=== PATIENT | female | born 1955 | race Caucasian/White ===

== ENCOUNTER 2019-11-29 20:35 | Inpatient (IN) ==
--- NOTE | 2019-11-29 20:56 | Emergency Department Note ---
Abdominal Pain HPI - General Chief Complaint: Constipation Stated Complaint: constipation Time Seen by Provider: 11/29/19 20:41 Source: family Mode of arrival: ambulatory Limitations: no limitations - History of Present Illness HPI Narrative: 64-year-old female patient presents emergency department with chief complaint of worsening constipation, abdominal pain, and bloating x3 days. Patient tells me she began to feel uncomfortable and had a small solid bowel movement 3 days ago. She has had no BM since then. She took 2 Dulcolax stool softeners viral roximately 2 hours prior to presentation. She was recently switched to a different dementia medication (galantamine) by her primary care provider and took the first dose yesterday. She denies fever, sweats, chills. She denies runny nose, cough, congestion. She denies shortness of breath. She denies retrosternal chest pain or palpitations. She admits to mild nausea but no vomiting. She denies dysuria or hematuria. She denies focal weakness. A review of her active problems shows the following: Matos's palsy, right shoulder pain, hypertension, urinary frequency, secondary hyperparathyroidism, borderline hyperglycemia, UTI, hyperlipidemia, glaucoma, diverticulitis, idiopathic aseptic necrosis of the femur, osteoporosis, nephrotic syndrome, vitamin D deficiency, anemia, hypertension, CKD stage III. - Related Data Home Medications Medication Instructions Recorded Confirmed Omeprazole [PriLOSEC] 20 mg PO DAILY 08/11/15 10/25/19 Spironolactone [Aldactone] 25 mg PO DAILY 08/11/15 10/25/19 Latanoprost Ophth Drops [Xalatan 1 gtt OS HS 09/04/15 10/25/19 Ophth Drops] calcitonin (salmon) 200 1 spray INTRANASAL QDAY 02/05/16 10/25/19 unit/actuation nasal spray cholecalciferol (vitamin D3) 125 5,000 unit PO QDAY cap 02/05/16 10/25/19 mcg (5,000 unit) capsule levothyroxine 100 mcg intravenous 100 mcg PO QDAY ml 02/05/16 10/25/19 powder for solution magnesium 400MG 1 tab PO QDAY 02/05/16 10/25/19 [id number]-csuzyec-urir-lutein 1 tab-cap PO QDAY 02/05/16 10/25/19 mycophenolate mofetil 250 mg 750 mg PO BID cap 02/05/16 10/25/19 capsule tacrolimus 1 mg capsule 3 mg PO Q12H cap 02/05/16 10/25/19 diltiazem HCl 180 mg 180 mg PO .COMPLEX 06/07/17 10/25/19 capsule,extended release 24 hr prednisone 5 mg tablet 5 mg PO QDAY 06/07/17 10/25/19 pamidronate 30 mg/10 mL (3 mg/mL) 90 mg IV .COMPLEX ml 07/13/18 10/25/19 intravenous solution Donepezil [Aricept] 10 mg PO HS 04/22/19 10/25/19 Previous Rx's Medication Instructions Recorded losartan 50 mg tablet 50 mg PO DAILY #90 tab 09/11/18 Allergies Allergy/AdvReac Type Severity Reaction Status Date / Time ciprofloxacin AdvReac Intermediate muscle Verified 10/25/19 11:44 spasm Amoxicillin AdvReac Rash Verified 10/25/19 11:44 cefoxitin AdvReac Rash Verified 10/25/19 11:44 cephalexin [From Keflex] AdvReac Rash Verified 10/25/19 11:44 Cephalosporins AdvReac Rash Verified 10/25/19 11:44 cilastatin [From Primaxin] AdvReac Rash Verified 10/25/19 11:44 droperidol [From Inapsine] AdvReac Rash Verified 10/25/19 11:44 imipenem [From Primaxin] AdvReac Rash Verified 10/25/19 11:44 Labetalol [From Trandate] AdvReac Rash Verified 10/25/19 11:44 lorazepam [From Ativan] AdvReac Rash Verified 10/25/19 11:44 meperidine [From Demerol] AdvReac Rash Verified 10/25/19 11:44 metronidazole [From Flagyl] AdvReac Rash Verified 10/25/19 11:44 oxycodone [From Percocet] AdvReac Rash Verified 10/25/19 11:44 pentazocine [From Talwin] AdvReac Rash Verified 10/25/19 11:44 phenobarbital AdvReac Rash Verified 10/25/19 11:44 propoxyphene AdvReac Rash Verified 10/25/19 11:44 [From Darvocet-N] tobramycin AdvReac Rash Verified 10/25/19 11:44 Review of Systems All systems ED: reviewed and negative except as stated. 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 Absent: scleral icterus, conjunctival injection ENT: Present: normal oropharynx, mucous membranes dry Neck: Present: trachea midline. Absent: lymphadenopathy, thyromegaly Chest: Present: symmetric chest wall rise Respiratory: Present: normal lung sounds bilaterally. Absent: respiratory distress, wheezes, stridor, accessory muscle use, prolonged expiratory phase Cardiovascular: Present: regular rate, normal rhythm. Absent: systolic murmur, diastolic murmur Abdominal: Present: soft, tenderness, guarding, hyperactive bowel sounds. Absent: distention, rebound, rigidity, organomegaly, mass Abdominal tenderness: Present: LUQ, LLQ, moderate Extremities: Present: normal inspection, full ROM, normal capillary refill, pedal edema Neurological: Present: alert, oriented X3 Psychiatric: Present: normal mood, anxious Skin: Present: warm, dry Course Course Narrative: Patient was brought into the emergency department and a history and physical examination was performed. Two-view abdominal x-ray series was ordered and reviewed showing considerable gas throughout the bowel but no air-fluid levels. No obvious evidence of obstruction was seen. The x-rays will be over read by radiologist next 12-24 hours. Upon reevaluation patient continues to complain of "stomach aching". She denies recurrent nausea or vomiting. The stool softener she took several hours ago was not taken effect and she denies the urge to have a bowel movement. At shift change I discussed the case with my collaborating physician (Dr. Romero). The patient is likely going to need additional imaging and work-up that he will 10 2. All further treatment decisions and modalities to be carried out by Dr. Romero. Vital Signs Temperature 98.3 F 11/29/19 20:37 Pulse Rate 83 11/29/19 20:37 Respiratory Rate 18 11/29/19 20:37 Blood Pressure 191/104 11/29/19 20:37 Pulse Oximetry (%) 98 11/29/19 20:37 Temperature 98.3 F 11/29/19 20:37 Pulse Rate 72 11/29/19 21:01 Respiratory Rate 18 11/29/19 20:37 Blood Pressure 170/92 11/29/19 21:46 Pulse Oximetry (%) 92 11/29/19 21:01 Abdominal Pain - Radiology Data Radiology results reviewed: Yes I reviewed the patient's radiology results. Considerable bowel gas noted throughout. No air-fluid levels identified. This would be considered a nonspecific bowel gas pattern. This will be over read by radiologist next 12-24 hours. Disposition Pt seen by PRIVATE MORTGAGE BANKER SAFE/PA only: Yes Clinical Impression: Constipation Qualifiers: Constipation type: unspecified constipation type Qualified Code(s): K59.00 - Constipation, unspecified Abdominal pain Qualifiers: Abdominal location: generalized Qualified Code(s): R10.84 - Generalized abdominal pain Disposition: Still a Patient Condition: Fair Additional Instructions: At shift change patient report was given to my collaborating physician (Dr. Romero). All further treatment decisions and modalities will be carried out by Dr. Romero. Referrals: Turner Devine MD [Primary Care Provider] -
[2019-11-29] MEDS ORDERED: 0.9 % SODIUM CHLORIDE 1,000 ML IV ONE (22:09)
[2019-11-29 22:45] LABS: POC Blood Urea Nitrogen 36 mg/dl (8-23); POC CO2 23 mmol/L (22-30); POC Calcium, Ionized 1.27 mmol/L (1.16-1.32); POC Chloride 107 mmol/L (96-108); POC Creatinine 2.1 mg/dl (0.6-1.1); POC Glucose, Random 115 mg/dL (70-105); POC Potassium 4.7 mmol/L (3.3-5.1); POC Sodium 138 mmol/L (133-145)
[2019-11-29 23:12] LABS: Basophils # (Auto) 0.02 K/mcL (0.00-0.30); Basophils % (Auto) 0.2 % (0.0-2.0); Eosinophils # (Auto) 0.07 K/mcL (0.00-0.70); Eosinophils % (Auto) 0.5 % (0.0-7.0); Granulocytes % (Auto) 81.1 % (38.0-78.0); Hematocrit 32.5 % (34.1-44.9); Hemoglobin 10.7 g/dL (11.2-15.7); Lymphocytes # (Auto) 1.44 K/mcL (1.50-4.80); Lymphocytes % (Auto) 11.2 % (15.5-49.0); Mean Cell Volume 90.3 fL (80.0-100.0); Mean Corpuscular HGB Conc 32.9 g/dL (31.0-36.0); Mean Platelet Volume 10.3 fL (7.4-10.4); Platelet Count 277 K/mcL (140-440); Red Cell Distribution Width 14.2 % (11.5-14.5); WBC 12.9 K/mcL (4.50-11.00)
[2019-11-29] MEDS ORDERED: hydrALAZINE 20 MG/ML VIAL IV ONE (23:16)
[2019-11-29 23:34] LABS: ALT/SGPT 10 U/l (0-40); AST/SGOT 14 U/l (0-37); Albumin 3.5 gm/dL (3.2-5.2); Albumin/Globulin Ratio 1.5 (1.0-2.3); Alkaline Phosphatase 61 U/L (39-117); Bilirubin,Total 0.3 mg/dL (0.0-1.0); Blood Urea Nitrogen 41 mg/dl (8-23); Calcium 9.9 mg/dl (8.6-10.4); Carbon Dioxide 21 mmol/L (22-30); Chloride 102 mmol/L (96-108); Globulin 2.4 gm/dL (2.2-3.7); Glomerular Filtration Rate 24; Glucose 119 mg/dL (70-105)
[2019-11-30] MEDS ORDERED: ONDANSETRON 4 MG/2 ML VIAL IV ONE ×2 (00:27→01:42)
[2019-11-30] MEDS ORDERED: LEVOFLOXACIN 500 MG/100 ML BAG IV ONE (00:27)
[2019-11-30] MEDS ORDERED: HYDROmorphone 2 MG/ML VIAL IV PRN (00:27)
[2019-11-30] MEDS ORDERED: metroNIDAZOLE 500 MG/100 ML BAG IV ONE (00:27)
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
[2019-11-30] MEDS ORDERED: PROMETHAZINE 25 MG/ML VIAL IM PRN (01:51)
[2019-11-30] MEDS ORDERED: NALOXONE HCL 0.4 MG/ML VIAL IV PRN (01:51)
[2019-11-30] MEDS ORDERED: PROMETHAZINE 25 MG/ML VIAL IV ONE (02:05)
[2019-11-30] MEDS: 0.9 % SODIUM CHLORIDE 1,000 ML IV SCH ×3 (03:56→14:41)
--- NOTE | 2019-11-30 08:44 | Cat Scan Report ---
History: Abdominal pain and constipation TECHNIQUE: The patient was imaged without oral or intravenous contrast scanning from the diaphragm through the symphysis pubis. Sagittal and coronal reformats are created. The radiation exposure was limited using dose reduction technology. FINDINGS: Heart is mildly enlarged. There is a pacemaker in the right side of the heart. Evaluation the abdominal organs without contrast is somewhat limited. The liver and spleen are normal in size and homogeneous. The gallbladder surgically absent. The bile ducts are nondilated. There is severe diffuse fatty infiltration throughout the pancreas and no evidence of pancreatitis. Patient has developed a nodule in the left adrenal gland which measures 1.4 x 1.4 cm. It has a density of -16 Hounsfield units indicating it contains a lipid. The nodule has enlarged since 2013. Then measured 7 x 9 mm. The right adrenal is normal. Patient has severe atrophy of both kidneys. There is an exophytic cyst posteriorly in the midportion left kidney measuring 1.5 x 1.6 cm. It has enlarged a few millimeter since 2012. No solid mass is seen within either kidney and there is no hydronephrosis of the bois forte kidneys. Patient does have a well-positioned normal contour transplanted kidney in the right upper pelvis. There is no hydronephrosis within the transplant or surrounding inflammation. Patient has developed acute diverticulitis of the distal descending colon extending to the proximal sigmoid colon. There is inflammation of the surrounding fat but no evidence of perforation or abscess. On the prior CT scan there was acute diverticulitis of the mid and distal sigmoid colon. No bowel obstruction is present. The appendix is noninflamed. There is no ascites or adenopathy. The uterus is been removed and neither ovary is visualized. Urinary bladder is unopacified but grossly normal. Severe atherosclerotic disease is present throughout the abdomen and pelvis and groin. There is a moderate-sized fat-containing inguinal hernia on the left side. There is no entrapment of bowel. IMPRESSION: Acute diverticulitis of the distal descending and proximal sigmoid colon Interpreted and Authenticated by: José Garcia 11/30/19
--- NOTE | 2019-11-30 08:45 | XRay Report ---
HISTORY: Abdominal pain FINDINGS: The bowel gas pattern is normal without evidence of obstruction or free intraabdominal air. Multiple surgical clips in the gallbladder fossa and in the right side of the pelvis following a prior kidney transplant. Severe atherosclerotic disease is present throughout the abdomen or pelvis. The heart is enlarged. IMPRESSION: No acute abnormality Interpreted and Authenticated by: José Garcia 11/30/19
[2019-11-30] MEDS ORDERED: VITAMIN D3 1,000 UNIT TABLET PO SCH (09:00)
[2019-11-30] MEDS ORDERED: DILTIAZEM 120 MG CAP.XL.24H PO SCH (09:00)
[2019-11-30] MEDS: ONDANSETRON 4 MG/2 ML VIAL IV PRN (09:57)
[2019-11-30] MEDS: TACROLIMUS 1 MG CAPSULE PO SCH ×3 (09:57→21:00)
[2019-11-30] MEDS: metroNIDAZOLE 500 MG/100 ML BAG IV SCH ×3 (09:57→21:08)
[2019-11-30] MEDS: LOSARTAN 50 MG TABLET PO SCH ×3 (09:59→21:18)
[2019-11-30] MEDS: predniSONE 5 MG TABLET PO SCH (09:59)
[2019-11-30] MEDS: LEVOTHYROXINE 100 MCG TABLET PO SCH (09:59)
[2019-11-30] MEDS: OMEPRAZOLE 20 MG CAPSULE PO SCH (09:59)
[2019-11-30] MEDS: SPIRONOLACTONE 25 MG TABLET PO SCH (09:59)
[2019-11-30] MEDS: MYCOPHENOLATE 250 MG CAPSULE PO SCH ×3 (09:59→20:58)
[2019-11-30] MEDS: CALCITONIN NASAL SPRAY 3.7ML BOTTLE NS SCH (10:00)
[2019-11-30] MEDS ORDERED: metroNIDAZOLE 500 MG/100 ML BAG IV SCH (10:00)
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
[2019-11-30] MEDS: LEVOFLOXACIN 250 MG/50 ML BAG IV SCH (17:06)
[2019-11-30] MEDS: VITAMIN D3 5,000 UNIT CAPSULE PO SCH (21:01)
[2019-11-30] MEDS: DONEPEZIL 10 MG TABLET PO SCH (21:03)
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
[2019-11-30] MEDS ORDERED: TACROLIMUS 1 MG CAPSULE PO SCH (23:45)
[2019-12-01] MEDS ORDERED: LEVOFLOXACIN 250 MG/50 ML BAG IV SCH (02:00)
[2019-12-01] MEDS: 0.9 % SODIUM CHLORIDE 1,000 ML IV SCH ×3 (03:42→18:04)
[2019-12-01] MEDS: metroNIDAZOLE 500 MG/100 ML BAG IV SCH ×3 (05:53→22:05)
[2019-12-01] MEDS ORDERED: OMEPRAZOLE 20 MG CAPSULE PO SCH (09:00)
[2019-12-01] MEDS ORDERED: SPIRONOLACTONE 25 MG TABLET PO SCH (09:00)
[2019-12-01] MEDS ORDERED: DILTIAZEM 120 MG CAP.XL.24H PO SCH (09:00)
[2019-12-01] MEDS ORDERED: MYCOPHENOLATE 250 MG CAPSULE PO SCH (09:00)
[2019-12-01] MEDS ORDERED: VITAMIN D3 5,000 UNIT CAPSULE PO SCH (09:00)
[2019-12-01] MEDS ORDERED: LOSARTAN 50 MG TABLET PO SCH (09:00)
[2019-12-01] MEDS: TACROLIMUS 1 MG CAPSULE PO SCH ×2 (09:30→20:08)
[2019-12-01] MEDS: CALCITONIN NASAL SPRAY 3.7ML BOTTLE NS SCH (09:30)
[2019-12-01] MEDS: MYCOPHENOLATE 250 MG CAPSULE PO SCH ×2 (09:30→20:06)
[2019-12-01] MEDS: predniSONE 5 MG TABLET PO SCH ×2 (09:34→10:22)
[2019-12-01 09:38] LABS: Basophils # (Auto) 0.03 K/mcL (0.00-0.30); Basophils % (Auto) 0.2 % (0.0-2.0); Eosinophils # (Auto) 0.13 K/mcL (0.00-0.70); Granulocytes % (Auto) 77.1 % (38.0-78.0); Hematocrit 32.9 % (34.1-44.9); Hemoglobin 10.5 g/dL (11.2-15.7); Lymphocytes # (Auto) 1.77 K/mcL (1.50-4.80); Lymphocytes % (Auto) 13.3 % (15.5-49.0); Mean Cell Volume 91.9 fL (80.0-100.0); Mean Corpuscular HGB Conc 31.9 g/dL (31.0-36.0); Mean Platelet Volume 10.1 fL (7.4-10.4); Monocytes # (Auto) 1.12 K/mcL (0.10-0.90); Monocytes % (Auto) 8.4 % (1.0-12.0); Platelet Count 258 K/mcL (140-440); RBC 3.58 M/mcL (3.59-5.38); Red Cell Distribution Width 14.6 % (11.5-14.5); WBC 13.3 K/mcL (4.50-11.00)
[2019-12-01 10:18] LABS: ALT/SGPT 10 U/l (0-40); AST/SGOT 14 U/l (0-37); Albumin/Globulin Ratio 1.4 (1.0-2.3); Alkaline Phosphatase 50 U/L (39-117); Bilirubin,Total 0.4 mg/dL (0.0-1.0); Calcium 8.8 mg/dl (8.6-10.4); Carbon Dioxide 19 mmol/L (22-30); Chloride 105 mmol/L (96-108); Globulin 2.1 gm/dL (2.2-3.7); Glomerular Filtration Rate 23; Glucose 89 mg/dL (70-105)
[2019-12-01] MEDS: LOSARTAN 50 MG TABLET PO SCH (10:21)
[2019-12-01] MEDS: SPIRONOLACTONE 25 MG TABLET PO SCH (10:21)
[2019-12-01] MEDS: LEVOTHYROXINE 100 MCG TABLET PO SCH (10:21)
[2019-12-01] MEDS: DONEPEZIL 10 MG TABLET PO SCH ×2 (10:21→20:08)
[2019-12-01] MEDS: OMEPRAZOLE 20 MG CAPSULE PO SCH (10:21)
[2019-12-01] MEDS: LEVOFLOXACIN 250 MG/50 ML BAG IV SCH (10:23)
[2019-12-01 10:34] LABS: Blood Urea Nitrogen 28 mg/dl (8-23)
[2019-12-01] MEDS: CEFTRIAXONE IV ONE ×2 (12:54→13:54)
[2019-12-01] MEDS: WATER IV ONE ×2 (12:54→13:54)
[2019-12-01] MEDS: DEXTROSE 5% IV ONE ×2 (12:54→13:54)
--- NOTE | 2019-12-01 12:54 | General Surgery Progress Note ---
Subjective Patient reports: still having pain, tolerating liquids well, flatus, nausea, afebrile Narrative: Note initiated : 12/01/19 at 12:51 pm Service Date, if different from initiated Date: [] Patient: Wendy Ellsworth 64 y/o F admitted on 11/30/19 for constipation. Chief Complaint: [patient is stable, but she still has significant left-sided abdominal pain. She has been afebrile. Her white blood count increased slightly to 13.3. She did have nausea but that is improved. She also complains of headache.] Objective Temp Pulse Resp BP Pulse Ox 98.0 F 91 H 18 158/97 94 12/01/19 12:00 12/01/19 12:00 12/01/19 12:00 12/01/19 12:00 12/01/19 12:00 - Additional Data Intake & Output - Last 24 hours: Intake & Output 11/29/19 11/30/19 12/01/19 12/02/19 05:59 05:59 05:59 05:59 Intake Total 1200 3010 100 Output Total 400 Balance 1200 2610 100 Weight 169 lb 171 lb 8 oz - General physical appearance well developed, well nourished, no distress - Eyes PERRL, normal ocular movement - ENT normal pinna, normal nares, normal mucosa, no hearing loss, no congestion - Neck no masses, no bruits, trachea midline, no lymphadenopathy, no venous distension - Respiratory normal expansion, normal respiratory effort, clear to auscultation - Abdomen tender (diffuse tenderness in the hypogastrium and left lower quadrant extending up to the subcostal region on the left; good active bowel sounds; moderate distention) - Integumentary no rash, no growths, no abnormal pigmentation - Neurologic normal coordination, normal sensation - Musculoskeletal normal gait, normal posture - Labs 12/01/19 09:08 12/01/19 09:08 Diabetes panel 12/01/19 Range/Units 09:08 Sodium 138 (133-145) mmol/L Potassium 4.6 (3.3-5.1) mmol/L Chloride 105 (96-108) mmol/L Carbon Dioxide 19 L (22-30) mmol/L BUN 28 H (8-23) mg/dl Creatinine 2.2 H (0.6-1.1) mg/dl Glucose 89 (70-105) mg/dL Calcium 8.8 (8.6-10.4) mg/dl AST 14 (0-37) U/l ALT 10 (0-40) U/l Alkaline Phosphatase 50 (39-117) U/L Total Protein 5.1 L (5.9-8.4) gm/dL Albumin 3.0 L (3.2-5.2) gm/dL Calcium panel 12/01/19 Range/Units 09:08 Calcium 8.8 (8.6-10.4) mg/dl Albumin 3.0 L (3.2-5.2) gm/dL Pituitary panel 12/01/19 Range/Units 09:08 Sodium 138 (133-145) mmol/L Potassium 4.6 (3.3-5.1) mmol/L Chloride 105 (96-108) mmol/L Carbon Dioxide 19 L (22-30) mmol/L BUN 28 H (8-23) mg/dl Creatinine 2.2 H (0.6-1.1) mg/dl Glucose 89 (70-105) mg/dL Calcium 8.8 (8.6-10.4) mg/dl Adrenal panel 12/01/19 Range/Units 09:08 Sodium 138 (133-145) mmol/L Potassium 4.6 (3.3-5.1) mmol/L Chloride 105 (96-108) mmol/L Carbon Dioxide 19 L (22-30) mmol/L BUN 28 H (8-23) mg/dl Creatinine 2.2 H (0.6-1.1) mg/dl Glucose 89 (70-105) mg/dL Calcium 8.8 (8.6-10.4) mg/dl Total Bilirubin 0.4 (0.0-1.0) mg/dL AST 14 (0-37) U/l ALT 10 (0-40) U/l Alkaline Phosphatase 50 (39-117) U/L Total Protein 5.1 L (5.9-8.4) gm/dL Albumin 3.0 L (3.2-5.2) gm/dL Assessment and Plan (1) Acute diverticulitis of intestine Status: Acute Assessment and plan: Continue Levaquin and metronidazole as antibiotics of choice. Discontinue Rocephin at this time. Fioricet 2 tabs every 4 hours as needed for headache Current Visit: Yes (2) Hypertension Status: Acute Current Visit: No (3) Anemia Status: Chronic Current Visit: No (4) Essential hypertension Status: Chronic Current Visit: No - Time Spent With Patient Total time spent is greater than 50% in coordination of care (as documented) at patient's floor/unit and/or counseling patient:
--- NOTE | 2019-12-01 13:52 | Internal Med Progress Note ---
Medical - PN: Subj Patient information: Note initiated : 12/01/19 at 1:50 pm Service Date, if different from initiated Date: [] Patient: Wendy Ellsworth 64 y/o F admitted on 11/30/19 for constipation. Chief Complaint: [] Interval history: Patient still feeling poorly today. She does not done much walking. Due to renal failure she is on renally dosed fluoroquinolone. She has reported allergy to both ciprofloxacin as well as cephalosporins. She tells me that her worst allergy was itching. She does not recall call specific allergy to any antibiotics. She is accompanied by her mother who states that the patient has had pretty significant allergies in the past - Constitutional Vitals: Vital Signs Temp Pulse Resp BP Pulse Ox 98.0 F 91 H 18 158/97 94 12/01/19 12:00 12/01/19 12:00 12/01/19 12:00 12/01/19 12:00 12/01/19 12:00 Period Temp Pulse Resp BP Sys/Reynoso Pulse Ox Last 24 Hr 98.0 F-99.3 F 72-91 16-20 134-174/59-97 89-95 Intake and Output 11/30/19 12/01/19 12/01/19 21:59 05:59 13:59 Intake Total 390 1520 1150 Balance 390 1520 1150 Weight 171 lb 8 oz Intake & Output: Intake & Output 11/30/19 12/01/19 12/01/19 21:59 05:59 13:59 Intake Total 390 1520 1150 Balance 390 1520 1150 Weight 171 lb 8 oz Intake: IV 150 1100 1150 Sodium Chloride 0.9% 1,000 ml @ 1000 1000 100 mls/hr IV .Q10H [facility] Rx#: [id number] Oral 240 420 Other: Meal Dinner Percent of Meal Consumed 100% Feeding Ability Independent Urine Appearance Clear Urine Color Bright Yellow Urine Odor Normal Stool Size Small Small Stool Color Brown Stool Consistency Soft Soft # Voids 1 1 # Bowel Movements 1 - Additional findings Additional findings: General malaised well-developed mildly overweight female in no acute cardiopul monary stress she is alert oriented pleasant CV regular rate and rhythm Lungs clear to auscultation bilaterally Abdomen positive bowel sounds soft there is some tenderness in the left side. Skin warm and dry Medical - PN: Obj Da - Labs CBC & Chem 7: 12/01/19 09:08 12/01/19 09:08 Labs: Abnormal Lab Results 12/01/19 12/01/19 11/29/19 09:08 09:08 22:36 WBC 13.3 H RBC 3.58 L Hgb 10.5 L Hct 32.9 L POC Hct 31.0 L RDW 14.6 H Gran % Lymph % (Auto) 13.3 L Gran # 10.25 H Lymph # (Auto) [place] # (Auto) 1.12 H Carbon Dioxide 19 L 21 L POC BUN 36 H BUN 28 H 41 H Creatinine 2.2 H 2.1 H POC Creatinine 2.1 H Glucose 119 H POC Glucose 115 H Total Protein 5.1 L Albumin 3.0 L Globulin 2.1 L 11/29/19 22:36 WBC 12.9 H RBC Hgb 10.7 L Hct 32.5 L POC Hct RDW Gran % 81.1 H Lymph % (Auto) 11.2 L Gran # 10.46 H Lymph # (Auto) 1.44 L [place] # (Auto) Carbon Dioxide POC BUN BUN Creatinine POC Creatinine Glucose POC Glucose Total Protein Albumin Globulin Meds: Medications Acetaminophen (Tylenol) 650 mg PO Q6HP PRN; Protocol PRN Reason: Pain Calcitonin [place] (Miacalcin) 1 spray NS DAILY [facility] Last Admin: 12/01/19 09:30 Dose: Not Given Documented by: Diltiazem HCl (Cardizem Cd) 240 mg PO HS BK Donepezil HCl (Aricept) 10 mg PO HS [facility] Last Admin: 12/01/19 10:21 Dose: 10 mg Documented by: Hydromorphone HCl (Dilaudid) 0.5 mg IV Q15MIN PRN; Protocol PRN Reason: Per Pain Protocol Last Admin: 11/30/19 00:46 Dose: 0.5 mg Documented by: Sodium Chloride (Sodium Chloride 0.9%) 1,000 mls @ 100 mls/hr IV .Q10H [facility] Last Infusion: 12/01/19 12:54 Dose: Infused Documented by: Metronidazole (Flagyl) 500 mg in 100 mls @ 100 mls/hr IV Q8H [facility]; Protocol Last Infusion: 12/01/19 06:53 Dose: Infused Documented by: Levofloxacin (Levaquin) 250 mg in 50 mls @ 50 mls/hr IV Q24H [facility] Last Infusion: 12/01/19 11:23 Dose: Infused Documented by: Latanoprost (Xalatan Ophth Drops) 1 gtt OS [facility] Lev[facility]roxine [facility] ([facility]throid) [facility] Admin: 12/01/19 10:21 Dose: 100 mcg Documented by: Losartan Potassium (Cozaar) 50 mg PO DAILY [facility] Last Admin: 12/01/19 10:21 Dose: 50 mg Documented by: Morphine Sulfate (Morphine) 2 mg IV Q1HP PRN; Protocol PRN Reason: Per Pain Protocol Last Admin: 12/01/19 04:04 Dose: 2 mg Documented by: Mycophenolate Mofetil (Cellcept) 750 mg PO BID@0700,1999 [facility] Last Admin: 12/01/19 09:30 Dose: Not Given Documented by: Naloxone HCl (Narcan) 0.1 mg IV Q2MIN PRN PRN Reason: Opiate Reversal Omeprazole (Prilosec) 40 mg PO ACB [facility] Last Admin: 12/01/19 10:21 Dose: 40 mg Documented by: Ondansetron HCl (Zofran) 4 mg IV Q4HP PRN PRN Reason: Nausea And Vomiting Last Admin: 11/30/19 09:57 Dose: 4 mg Documented by: Galantamine Hbr 4 Mg (Tab) 1 dose PO DAILY [facility] Last Admin: 12/01/19 10:23 Dose: Not Given Documented by: Prednisone (Prednisone) 5 mg PO [facility] Last Admin: 12/01/19 09:34 Dose: Not Given Documented by: Prednisone (Prednisone) 5 mg PO [facility] Last Admin: 12/01/19 10:22 Dose: 5 mg Documented by: Promethazine HCl (Phenergan) 12.5 mg IM Q6HP PRN PRN Reason: Nausea And Vomiting Spironolactone (Aldactone) 50 mg PO DAILY [facility] Last Admin: 12/01/19 10:21 Dose: 50 mg Documented by: Tacrolimus (Tacrolimus) 3 mg PO BID [facility] Last Admin: 12/01/19 09:30 Dose: Not Given Documented by: Vitamin D (Vitamin D3) 5,000 unit PO [facility] Last Admin: 11/30/19 21:01 Dose: Not Given Documented by: Medical - PN: A/P - Time Spent With Patient Total time spent is greater than 50% in coordination of care (as documented) at patient's floor/unit and/or counseling patient: 25 - 35 minutes (1) Kidney transplant recipient Problem details: stable but is on immunosuppression and steroid Status: Acute Current Visit: Yes (2) Diverticulitis Problem details: I had considered switching to Rocephin due to persistent elevated white count and occasional E. coli resistance to fluoroquinolones. I am not familiar with the local antibiogram at this hospital however. The patient had a test dose Rocephin and if she is not allergic to it that could be an option for future treatment for this infection or others. 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
[2019-12-01] MEDS: DILTIAZEM 240 MG CAP.XL.24H PO SCH (20:07)
[2019-12-01] MEDS: VITAMIN D3 5,000 UNIT CAPSULE PO SCH (20:07)
[2019-12-01] MEDS: LATANOPROST OPHTH DROPS 2.5ML BOTTLE OS SCH (20:10)
[2019-12-01] MEDS ORDERED: DONEPEZIL 10 MG TABLET PO SCH (21:00)
[2019-12-02] MEDS: 0.9 % SODIUM CHLORIDE 1,000 ML IV SCH ×4 (05:21→22:58)
[2019-12-02] MEDS: metroNIDAZOLE 500 MG/100 ML BAG IV SCH ×3 (05:49→21:53)
[2019-12-02] MEDS: OMEPRAZOLE 20 MG CAPSULE PO SCH (07:26)
[2019-12-02] MEDS: LEVOTHYROXINE 100 MCG TABLET PO SCH (07:26)
[2019-12-02] MEDS: MYCOPHENOLATE 250 MG CAPSULE PO SCH ×2 (07:26→20:23)
[2019-12-02] MEDS: LEVOFLOXACIN 250 MG/50 ML BAG IV SCH (08:48)
[2019-12-02] MEDS: predniSONE 5 MG TABLET PO SCH (08:48)
[2019-12-02] MEDS: CALCITONIN NASAL SPRAY 3.7ML BOTTLE NS SCH (08:49)
[2019-12-02] MEDS: LOSARTAN 50 MG TABLET PO SCH (08:49)
[2019-12-02] MEDS: SPIRONOLACTONE 25 MG TABLET PO SCH (08:49)
[2019-12-02] MEDS: TACROLIMUS 1 MG CAPSULE PO SCH ×2 (08:50→20:23)
[2019-12-02] MEDS: ACETAMINOPHEN 325 MG TABLET PO PRN ×2 (11:02→22:53)
[2019-12-02] MEDS ORDERED: EPINEPHrine 1 MG/ML AMPUL IM PRN (12:07)
[2019-12-02] MEDS ORDERED: AMOXICILLIN 250 MG CAPSULE PO ONE (12:07)
[2019-12-02] MEDS ORDERED: 0.9 % SODIUM CHLORIDE 500 ML IV PRN (12:07)
--- NOTE | 2019-12-02 12:41 | Internal Med Progress Note ---
Medical - PN: Subj Patient information: Note initiated : 12/02/19 at 12:35 pm Service Date, if different from initiated Date: [] Patient: Wendy Ellsworth 64 y/o F admitted on 11/30/19 for constipation. Chief Complaint: [] Interval history: pt states feels a little better today but still having abd pain. Passed some gas. Mild painful. no stool. no fevers - Constitutional Vitals: Vital Signs Temp Pulse Resp BP Pulse Ox 98.5 F 85 18 156/87 94 12/02/19 11:33 12/02/19 11:33 12/02/19 11:33 12/02/19 11:33 12/02/19 11:33 Period Temp Pulse Resp BP Sys/Reynoso Pulse Ox Last 24 Hr 97.3 F-98.9 F 75-85 16-20 125-163/73-90 90-96 Intake and Output 12/01/19 12/02/19 12/02/19 21:59 05:59 13:59 Intake Total 1370 1700 Output Total 1999 1050 Balance -630 650 Weight 169 lb 8 oz Intake & Output: Intake & Output 12/01/19 12/02/19 12/02/19 21:59 05:59 13:59 Intake Total 1370 1700 Output Total 1999 1050 Balance -630 650 Weight 169 lb 8 oz Intake: IV 150 1100 Sodium Chloride 0.9% 1,000 ml @ 1000 100 mls/hr IV .Q10H BK Rx#: [id number] Rocephin 100 mg In Dextrose 5% 50 in Water 50 ml @ 200 mls/hr IV ONCE ONE Rx#:[id number] Oral 1220 600 Output: Void Amount 1999 1050 Other: Meal Nourishment/Supplement Percent of Meal Consumed 50% Urine Appearance Clear Clear Urine Color Bright Yellow Bright Yellow Urine Odor Normal Normal # Voids 1 - Additional findings Additional findings: General well-developed well-nourished mildly overweight female no acute cardiopulmonary stress CV regular rate and rhythm Lungs clear to auscultation bilaterally Abdomen positive bowel sounds soft with left abdomen tenderness trace rebound tenderness calves no tenderness pretibial edema Mentation alert and oriented x3 but patient is a poor historian reports memory loss from recent Medical - PN: Obj Da - Labs CBC & Chem 7: 12/01/19 09:08 12/01/19 09:08 Labs: Abnormal Lab Results 12/01/19 12/01/19 11/29/19 09:08 09:08 22:36 WBC 13.3 H RBC 3.58 L Hgb 10.5 L Hct 32.9 L POC Hct 31.0 L RDW 14.6 H Gran % Lymph % (Auto) 13.3 L Gran # 10.25 H Lymph # (Auto) [place] # (Auto) 1.12 H Carbon Dioxide 19 L 21 L POC BUN 36 H BUN 28 H 41 H Creatinine 2.2 H 2.1 H POC Creatinine 2.1 H Glucose 119 H POC Glucose 115 H Total Protein 5.1 L Albumin 3.0 L Globulin 2.1 L 11/29/19 22:36 WBC 12.9 H RBC Hgb 10.7 L Hct 32.5 L POC Hct RDW Gran % 81.1 H Lymph % (Auto) 11.2 L Gran # 10.46 H Lymph # (Auto) 1.44 L [place] # (Auto) Carbon Dioxide POC BUN BUN Creatinine POC Creatinine Glucose POC Glucose Total Protein Albumin Globulin Meds: Medications Acetaminophen (Tylenol) 650 mg PO Q6HP PRN; Protocol PRN Reason: Pain Last Admin: 12/02/19 11:02 Dose: 650 mg Documented by: Calcitonin [place] (Miacalcin) 1 spray NS DAILY [facility] Last Admin: 12/02/19 08:49 Dose: Not Given Documented by: Diltiazem HCl (Cardizem Cd) 240 mg PO [facility] Last Admin: 12/01/19 20:07 Dose: 240 mg Documented by: Donepezil HCl (Aricept) 10 mg PO [facility] Last Admin: 12/01/19 20:08 Dose: 10 mg Documented by: Epinephrine HCl (Adrenalin) 0.3 mg IM ONCE PRN PRN Reason: Anaphylaxis Stop: 12/02/19 16:07 Hydromorphone HCl (Dilaudid) 0.5 mg IV Q15MIN PRN; Protocol PRN Reason: Per Pain Protocol Last Admin: 11/30/19 00:46 Dose: 0.5 mg Documented by: Sodium Chloride (Sodium Chloride 0.9%) 1,000 mls @ 100 mls/hr IV .Q10H [facility] Last Admin: 12/02/19 05:21 Dose: 100 mls/hr Documented by: Levofloxacin (Levaquin) 250 mg in 50 mls @ 50 mls/hr IV Q24H [facility] Last Admin: 12/02/19 08:48 Dose: 50 mls/hr Documented by: Metronidazole (Flagyl) 500 mg in 100 mls @ 100 mls/hr IV Q8H [facility]; Protocol Sodium Chloride (Sodium Chloride 0.9%) 500 mls @ 0 mls/hr IV BOLUS PRN PRN Reason: Anaphylaxis Stop: 12/02/19 16:06 Latanoprost (Xalatan Ophth Drops) 1 gtt OS HS [facility] Last Admin: 12/01/19 20:10 Dose: Not Given Documented by: Levothyroxine S[facility] ([facility]throid) [facility] Last Admin: 12/02/19 07:26 Dose: 100 mcg Documented by: Losartan Potassium (Cozaar) 50 mg PO DAILY [facility] Last Admin: 12/02/19 08:49 Dose: 50 mg Documented by: Morphine Sulfate (Morphine) 2 mg IV Q1HP PRN; Protocol PRN Reason: Per Pain Protocol Last Admin: 12/02/19 05:20 Dose: 2 mg Documented by: Mycophenolate Mofetil (Cellcept) 750 mg PO BID@0700,1999 [facility] Last Admin: 12/02/19 07:26 Dose: 750 mg Documented by: Naloxone HCl (Narcan) 0.1 mg IV Q2MIN PRN PRN Reason: Opiate Reversal Omeprazole (Prilosec) 40 mg PO ACB [facility] Last Admin: 12/02/19 07:26 Dose: 40 mg Documented by: Ondansetron HCl (Zofran) 4 mg IV Q4HP PRN PRN Reason: Nausea And Vomiting Last Admin: 11/30/19 09:57 Dose: 4 mg Documented by: Galantamine Hbr 4 Mg (Tab) 1 dose PO DAILY [facility] Last Admin: 12/02/19 08:49 Dose: Not Given Documented by: Prednisone (Prednisone) 5 mg PO [facility] Last Admin: 12/02/19 08:48 Dose: 5 mg Documented by: Promethazine HCl (Phenergan) 12.5 mg IM Q6HP PRN PRN Reason: Nausea And Vomiting Spironolactone (Aldactone) 50 mg PO DAILY [facility] Last Admin: 12/02/19 08:49 Dose: 50 mg Documented by: Tacrolimus (Tacrolimus) 3 mg PO BID [facility] Last Admin: 12/02/19 08:50 Dose: 3 mg Documented by: Vitamin D (Vitamin D3) 5,000 unit PO HS [facility] Last Admin: 12/01/19 20:07 Dose: 5,000 unit Documented by: Medical - PN: A/P - Time Spent With Patient Total time spent is greater than 50% in coordination of care (as documented) at patient's floor/unit and/or counseling patient: 25 - 35 minutes (1) Kidney transplant recipient Problem details: stable but is on immunosuppression and steroid Status: Acute Assessment and plan: We will check UA Current Visit: Yes (2) Diverticulitis Problem details: I had considered switching to Rocephin due to persistent elevated white count and occasional E. coli resistance to fluoroquinolones. I am not familiar with the local antibiogram at this hospital however. The patient had a test dose Rocephin and if she is not allergic to it that could be an option for future treatment for this infection or others. 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 Continue with antirejection meds for her kidney transplant Current Visit: No
[2019-12-02 14:07] LABS: Basophils # (Auto) 0.03 K/mcL (0.00-0.30); Basophils % (Auto) 0.2 % (0.0-2.0); Eosinophils # (Auto) 0.04 K/mcL (0.00-0.70); Eosinophils % (Auto) 0.3 % (0.0-7.0); Granulocytes % (Auto) 89.6 % (38.0-78.0); Hematocrit 34.7 % (34.1-44.9); Hemoglobin 11.1 g/dL (11.2-15.7); Lymphocytes # (Auto) 0.84 K/mcL (1.50-4.80); Lymphocytes % (Auto) 6.2 % (15.5-49.0); Mean Cell Volume 92.3 fL (80.0-100.0); Mean Platelet Volume 10.5 fL (7.4-10.4); Monocytes # (Auto) 0.51 K/mcL (0.10-0.90); Monocytes % (Auto) 3.7 % (1.0-12.0); Platelet Count 257 K/mcL (140-440); RBC 3.76 M/mcL (3.59-5.38); Red Cell Distribution Width 14.7 % (11.5-14.5); WBC 13.6 K/mcL (4.50-11.00)
[2019-12-02 14:36] LABS: Appearance,Urine CLEAR; Bacteria,Urine FEW /hpf (0); Bilirubin,Urine NEG (NEG); Color,Urine YELLOW; Culture Indicated,Urine YES; Glucose,Urine (UA) NEGATIVE (NEG); Ketones,Urine 5/TR mg/dL (NEG); Leukocyte Esterase,Urine 25 /uL (NEG); Mucus,Urine FEW /hpf (0); Nitrate,Urine NEG (NEG); Protein,Urine 30 mg/dL (NEG); Specific Gravity,Urine 1.012 (1.000-1.035); Urine Blood NEG mg/dL (<0.03); Urine RBC < 1 /hpf (0-1); Urine Squamous Epithelial Cell 3 /hpf (0-4); Urine WBC 1 /hpf (0-4); Urobilinogen,Urine NEG (NEG)
--- NOTE | 2019-12-02 15:48 | General Surgery Progress Note ---
Subjective Patient reports: feels better, pain is less, flatus, no bowel movement, afebrile Narrative: Note initiated : 12/02/19 at 3:47 pm Service Date, if different from initiated Date: [] Patient: Wendy Ellsworth 64 y/o F admitted on 11/30/19 for constipation. Chief Complaint: [patient continues to improve. She states that her pain in the left lower quadrant and hypogastrium. This significantly improved. She she has good active bowel sounds and has been having flatus. She does not have bowel movement. She is afebrile.] Objective Temp Pulse Resp BP Pulse Ox 98.5 F 85 18 156/87 94 12/02/19 11:33 12/02/19 11:33 12/02/19 11:33 12/02/19 11:33 12/02/19 11:33 - Additional Data Intake & Output - Last 24 hours: Intake & Output 11/30/19 12/01/19 12/02/19 12/03/19 05:59 05:59 05:59 05:59 Intake Total 1200 3010 4220 Output Total 400 3050 Balance 1200 2610 1170 Weight 169 lb 171 lb 8 oz 169 lb 8 oz 169 lb 8 oz - General physical appearance well developed, well nourished, no distress - Eyes PERRL, normal ocular movement - ENT normal pinna, normal nares, normal mucosa, no hearing loss, no congestion - Neck no masses, no bruits, trachea midline, no lymphadenopathy, no venous distension - Respiratory normal expansion, normal respiratory effort, clear to auscultation - Cardiovascular Cardiovascular exam: Present: normal rate and rhythm, RRR, +S1, +S2. Absent: JVD, tachycardia - Abdomen tender (mild tenderness left lower quadrant without mass; mild distention of upper abdomen soft; good active bowel sounds) - Integumentary no rash, no growths, no abnormal pigmentation - Neurologic normal coordination, normal sensation - Musculoskeletal normal gait, normal posture - Psychiatric oriented to time, oriented to person, oriented to place, speech is normal, memory intact - Labs 12/02/19 12:59 12/01/19 09:08 Assessment and Plan (1) Acute diverticulitis of intestine Status: Acute Assessment and plan: Continue Levaquin and metronidazole as antibiotics of choice. Fioricet 2 tabs every 4 hours as needed for headache Current Visit: Yes (2) Hypertension Status: Acute Current Visit: No (3) Anemia Status: Chronic Current Visit: No (4) Essential hypertension Status: Chronic Current Visit: No - Time Spent With Patient Total time spent is greater than 50% in coordination of care (as documented) at patient's floor/unit and/or counseling patient:
[2019-12-02] MEDS: VITAMIN D3 5,000 UNIT CAPSULE PO SCH (20:23)
[2019-12-02] MEDS: DONEPEZIL 10 MG TABLET PO SCH (20:23)
[2019-12-02] MEDS: DILTIAZEM 240 MG CAP.XL.24H PO SCH (20:23)
[2019-12-02] MEDS: LATANOPROST OPHTH DROPS 2.5ML BOTTLE OS SCH (20:24)
[2019-12-02] MEDS: ONDANSETRON 4 MG/2 ML VIAL IV PRN (22:52)
[2019-12-03] MEDS: 0.9 % SODIUM CHLORIDE 1,000 ML IV SCH ×3 (06:04→20:37)
[2019-12-03] MEDS: metroNIDAZOLE 500 MG/100 ML BAG IV SCH ×4 (06:04→21:54)
[2019-12-03 06:37] LABS: Basophils # (Auto) 0.03 K/mcL (0.00-0.30); Basophils % (Auto) 0.2 % (0.0-2.0); Eosinophils # (Auto) 0.17 K/mcL (0.00-0.70); Eosinophils % (Auto) 1.3 % (0.0-7.0); Granulocytes % (Auto) 72.7 % (38.0-78.0); Hematocrit 32.6 % (34.1-44.9); Hemoglobin 10.1 g/dL (11.2-15.7); Lymphocytes # (Auto) 2.18 K/mcL (1.50-4.80); Lymphocytes % (Auto) 16.3 % (15.5-49.0); Mean Cell Volume 94.2 fL (80.0-100.0); Mean Platelet Volume 10.7 fL (7.4-10.4); Monocytes # (Auto) 1.28 K/mcL (0.10-0.90); Monocytes % (Auto) 9.5 % (1.0-12.0); Platelet Count 259 K/mcL (140-440); RBC 3.46 M/mcL (3.59-5.38); Red Cell Distribution Width 14.6 % (11.5-14.5); WBC 13.4 K/mcL (4.50-11.00)
[2019-12-03] MEDS: MYCOPHENOLATE 250 MG CAPSULE PO SCH ×2 (07:19→19:51)
[2019-12-03] MEDS: LEVOTHYROXINE 100 MCG TABLET PO SCH (07:19)
[2019-12-03] MEDS: OMEPRAZOLE 20 MG CAPSULE PO SCH (07:19)
[2019-12-03] MEDS: LEVOFLOXACIN 250 MG/50 ML BAG IV SCH (08:54)
[2019-12-03] MEDS: TACROLIMUS 1 MG CAPSULE PO SCH ×2 (08:54→21:53)
[2019-12-03] MEDS: predniSONE 5 MG TABLET PO SCH (08:55)
[2019-12-03] MEDS: CALCITONIN NASAL SPRAY 3.7ML BOTTLE NS SCH (08:55)
[2019-12-03] MEDS: SPIRONOLACTONE 25 MG TABLET PO SCH (08:55)
[2019-12-03] MEDS: LOSARTAN 50 MG TABLET PO SCH (08:55)
[2019-12-03] MEDS: ACETAMINOPHEN 325 MG TABLET PO PRN (14:11)
--- NOTE | 2019-12-03 15:17 | Internal Med Progress Note ---
Medical - PN: Subj Patient information: Note initiated : 12/03/19 at 3:15 pm Service Date, if different from initiated Date: [] Patient: Wendy Ellsworth 64 y/o F admitted on 11/30/19 for constipation. Chief Complaint: [] Interval history: Patient tells me she feels better and had 3 bowel movements overnight. She did have some pain meds earlier today so she is not sure if that is masking some of the pain. She is accompanied by 1 of her friends dialysis nurse Pertinent ROS: No fevers no vomiting - Constitutional Vitals: Vital Signs Temp Pulse Resp BP Pulse Ox 97.8 F 80 18 150/88 92 12/03/19 12:00 12/03/19 12:00 12/03/19 12:00 12/03/19 12:00 12/03/19 12:00 Period Temp Pulse Resp BP Sys/Reynoso Pulse Ox Last 24 Hr 97.8 F-98.4 F 74-86 14-18 150-158/82-89 90-95 Intake and Output 12/03/19 12/03/19 12/03/19 05:59 13:59 21:59 Intake Total 2019 782 Output Total 200 300 Balance 1820 482 Intake & Output: Intake & Output 12/03/19 12/03/19 12/03/19 05:59 13:59 21:59 Intake Total 2019 782 Output Total 200 300 Balance 1820 482 Intake: IV 1100 542 Sodium Chloride 0.9% 1,000 ml @ 1000 442 100 mls/hr IV .Q10H BK Rx#: [id number] Oral 920 240 Output: Void Amount 200 300 Other: Meal Breakfast Percent of Meal Consumed 50% Feeding Ability Independent Urine Appearance Clear Clear Urine Color Bright Yellow Bright Yellow Urine Odor Normal Normal Stool Size Small Moderate Stool Color Brown Brown Stool Consistency Loose Loose # Voids 1 # Bowel Movements 1 - Additional findings Additional findings: General well-developed well-nourished moderately overweight female in no acute cardiopulmonary she is alert and pleasant CV regular rate and rhythm Lungs clear to auscultation bilaterally Abdomen positive bowel sounds soft left-sided abdominal pain trace only no rebo und and much improved Calves trace edema Medical - PN: Obj Da - Labs CBC & Chem 7: 12/03/19 05:30 12/01/19 09:08 Labs: Abnormal Lab Results 12/03/19 12/02/19 12/02/19 05:30 13:40 12:59 WBC 13.4 H 13.6 H RBC 3.46 L Hgb 10.1 L 11.1 L Hct 32.6 L RDW 14.6 H 14.7 H MPV 10.7 H 10.5 H Gran % 89.6 H Lymph % (Auto) 6.2 L Gran # 9.75 H 12.20 H Lymph # (Auto) 0.84 L [place] # (Auto) 1.28 H Carbon Dioxide BUN Creatinine Total Protein Albumin Globulin Urine Protein 30 A Urine Ketones 5/tr A Ur Leukocyte Esterase 25 A Urine Bacteria Few A 12/01/19 12/01/19 09:08 09:08 WBC 13.3 H RBC 3.58 L Hgb 10.5 L Hct 32.9 L RDW 14.6 H MPV Gran % Lymph % (Auto) 13.3 L Gran # 10.25 H Lymph # (Auto) [place] # (Auto) 1.12 H Carbon Dioxide 19 L BUN 28 H Creatinine 2.2 H Total Protein 5.1 L Albumin 3.0 L Globulin 2.1 L Urine Protein Urine Ketones Ur Leukocyte Esterase Urine Bacteria Meds: Medications Acetaminophen (Tylenol) 650 mg PO Q6HP PRN; Protocol PRN Reason: Pain Last Admin: 12/03/19 14:11 Dose: 650 mg Documented by: Calcitonin [place] (Miacalcin) 1 spray NS DAILY [facility] Last Admin: 12/03/19 08:55 Dose: Not Given Documented by: Diltiazem HCl (Cardizem Cd) 240 mg PO [facility] Last Admin: 12/02/19 20:23 Dose: 240 mg Documented by: Donepezil HCl (Aricept) 10 mg PO [facility] Last Admin: 12/02/19 20:23 Dose: 10 mg Documented by: Hydromorphone HCl (Dilaudid) 0.5 mg IV Q15MIN PRN; Protocol PRN Reason: Per Pain Protocol Last Admin: 11/30/19 00:46 Dose: 0.5 mg Documented by: Sodium Chloride (Sodium Chloride 0.9%) 1,000 mls @ 100 mls/hr IV .Q10H [facility] Last Admin: 12/03/19 10:29 Dose: 100 mls/hr Documented by: Levofloxacin (Levaquin) 250 mg in 50 mls @ 50 mls/hr IV Q24H [facility] Last Admin: 12/03/19 08:54 Dose: 50 mls/hr Documented by: Metronidazole (Flagyl) 500 mg in 100 mls @ 100 mls/hr IV Q8H [facility]; Protocol Last Admin: 12/03/19 14:04 Dose: 100 mls/hr Documented by: Latanoprost (Xalatan Ophth Drops) 1 gtt OS HS [facility] Last Admin: 12/02/19 20:24 Dose: Not Given Documented by: [facility] S[facility]) [facility] Last Admin: 12/03/19 07:19 Dose: 100 mcg Documented by: Losartan Potassium (Cozaar) 50 mg PO DAILY [facility] Last Admin: 12/03/19 08:55 Dose: 50 mg Documented by: Morphine Sulfate (Morphine) 2 mg IV Q1HP PRN; Protocol PRN Reason: Per Pain Protocol Last Admin: 12/03/19 10:28 Dose: 2 mg Documented by: Mycophenolate Mofetil (Cellcept) 750 mg PO BID@0700,1999 [facility] Last Admin: 12/03/19 07:19 Dose: 750 mg Documented by: Naloxone HCl (Narcan) 0.1 mg IV Q2MIN PRN PRN Reason: Opiate Reversal Omeprazole (Prilosec) 40 mg PO ACB [facility] Last Admin: 12/03/19 07:19 Dose: 40 mg Documented by: Ondansetron HCl (Zofran) 4 mg IV Q4HP PRN PRN Reason: Nausea And Vomiting Last Admin: 12/02/19 22:52 Dose: 4 mg Documented by: Galantamine Hbr 4 Mg (Tab) 1 dose PO DAILY [facility] Last Admin: 12/03/19 08:56 Dose: Not Given Documented by: Prednisone (Prednisone) 5 mg PO [facility] Last Admin: 12/03/19 08:55 Dose: 5 mg Documented by: Promethazine HCl (Phenergan) 12.5 mg IM Q6HP PRN PRN Reason: Nausea And Vomiting Spironolactone (Aldactone) 50 mg PO DAILY [facility] Last Admin: 12/03/19 08:55 Dose: 50 mg Documented by: Tacrolimus (Tacrolimus) 3 mg PO BID [facility] Last Admin: 12/03/19 08:54 Dose: 3 mg Documented by: Vitamin D (Vitamin D3) 5,000 unit PO [facility] Last Admin: 12/02/19 20:23 Dose: 5,000 unit Documented by: Medical - PN: A/P - Time Spent With Patient Total time spent is greater than 50% in coordination of care (as documented) at patient's floor/unit and/or counseling patient: 25 - 35 minutes (1) Kidney transplant recipient Problem details: stable but is on immunosuppression and steroid Status: Acute Assessment and plan: Only mild proteinuria follow-up with her screener perfumer. Current Visit: Yes (2) Diverticulitis Problem details: I had considered switching to Rocephin due to persistent elevated white count and occasional E. coli resistance to fluoroquinolones. I am not familiar with the local antibiogram at this hospital however. The patient had a test dose Rocephin and if she is not allergic to it that could be an option for future treatment for this infection or others. Status: Acute Assessment and plan: Patient has been tested for penicillin sensitivity allergy and is negative Patient is improved o continuation of the fluoroquinolone and metronidazole started admission. Anticipate discharge home tomorrow with oral antibiotics if Dr. 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 Continue with antirejection meds for her kidney transplant Current Visit: No
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
--- NOTE | 2019-12-03 17:21 | General Surgery Progress Note ---
Subjective Patient reports: feels better, pain is less, tolerating liquids well, flatus, bowel movement, afebrile Narrative: Note initiated : 12/03/19 at 5:18 pm Service Date, if different from initiated Date: [] Patient: Wendy Ellsworth 64 y/o F admitted on 11/30/19 for constipation. Chief Complaint: [patient is doing well. She has been afebrile. She is having copious flatus and bowel movements. White blood count 13.4, hemoglobin 10.1, hematocrit 32.6] Objective Temp Pulse Resp BP Pulse Ox 97.8 F 80 18 150/88 92 12/03/19 12:00 12/03/19 12:00 12/03/19 12:00 12/03/19 12:00 12/03/19 12:00 - Additional Data Intake & Output - Last 24 hours: Intake & Output 12/01/19 12/02/19 12/03/19 12/04/19 05:59 05:59 05:59 05:59 Intake Total 3010 4220 3630 982 Output Total 400 3050 600 1050 Balance 2610 1170 3030 -68 Weight 171 lb 8 oz 169 lb 8 oz 171 lb - General physical appearance well developed, well nourished, no distress - Eyes PERRL, normal ocular movement - ENT normal pinna, normal nares, normal mucosa, no hearing loss, no congestion - Neck no masses, no bruits, trachea midline, no lymphadenopathy, no venous distension - Respiratory normal expansion, normal respiratory effort, clear to auscultation - Cardiovascular Cardiovascular exam: Present: normal rate and rhythm, RRR, +S1, +S2. Absent: JVD, tachycardia - Abdomen non tender, bowel sounds (present), surgical scars (none), masses (none) - Integumentary no rash, no growths, no abnormal pigmentation - Neurologic normal coordination, normal sensation - Musculoskeletal normal gait, normal posture - Psychiatric oriented to time, oriented to person, oriented to place, speech is normal, memory intact - Labs 12/03/19 05:30 12/01/19 09:08 Assessment and Plan (1) Acute diverticulitis of intestine Status: Acute Assessment and plan: Continue Levaquin and metronidazole as antibiotics Probable discharge on oral medications tomorrow Current Visit: Yes (2) Hypertension Status: Acute Current Visit: No (3) Anemia Status: Chronic Current Visit: No (4) Essential hypertension Status: Chronic Current Visit: No - Time Spent With Patient Total time spent is greater than 50% in coordination of care (as documented) at patient's floor/unit and/or counseling patient:
--- NOTE | 2019-12-03 19:55 | Antibiotic Stewardship Consult ---
Antibiotic Stewardship Consult Reason for consult: Penicillin allergy Allergy History: Allergies Allergy/AdvReac Type Severity Reaction Status Date / Time Cephalosporins AdvReac Mild Rash Verified 12/01/19 12:38 cilastatin [From Primaxin] AdvReac Mild Rash Verified 12/01/19 12:38 droperidol [From Inapsine] AdvReac Mild Rash Verified 12/01/19 12:38 imipenem [From Primaxin] AdvReac Mild Rash Verified 12/01/19 12:38 Labetalol [From Trandate] AdvReac Mild Rash Verified 12/01/19 12:38 lorazepam [From Ativan] AdvReac Mild Rash Verified 12/01/19 12:38 meperidine [From Demerol] AdvReac Mild Rash Verified 12/01/19 12:38 metronidazole [From Flagyl] AdvReac Mild Rash Verified 12/01/19 12:38 oxycodone [From Percocet] AdvReac Mild Rash Verified 12/01/19 12:38 pentazocine [From Talwin] AdvReac Mild Rash Verified 12/01/19 12:38 phenobarbital AdvReac Mild Rash Verified 12/01/19 12:38 propoxyphene AdvReac Mild Rash Verified 12/01/19 12:38 [From Darvocet-N] Quinolones AdvReac Mild Muscle Pain Verified 12/03/19 10:15 tobramycin AdvReac Mild Rash Verified 12/01/19 12:38 Pt reports that she is unsure of exact reaction but remembers that her mother told her that it might have been a rash when she recived penicillin about 8 years ago. She has not recieved penicillin since then Microbiology History: Microbiology 12/02/19 13:40 Urine Culture - Preliminary Urine - Catheterized Narrative: A: 1. History of penicillin allergy: about 8-10 years ago, pt had skin rash ? (according to mother). Has stayed off penicillins in past. Low risk - no reaction on PO challenge with 250 mg Amoxicillin. Pt observed for 2 hrs Recommendations: - Pt does not have Ig-E mediated allergy to penicillin based on testing results above. Therefore, patient can get penicillin as an antibiotic choice for treatment in future. - Patient's medical record was updated - It is extremely unlikely that patient will have an immediate-type allergic reaction if patient takes penicillin in the future.In case patient has any adverse reaction after penicillin in future, please call ID clinic at [phone] Garay (primary team) was informed about these results. Pt voiced understanding. Kentrell Mercer MD Infectious diseases
[2019-12-03] MEDS: LATANOPROST OPHTH DROPS 2.5ML BOTTLE OS SCH (20:55)
[2019-12-03] MEDS: VITAMIN D3 5,000 UNIT CAPSULE PO SCH (20:55)
[2019-12-03] MEDS: DONEPEZIL 10 MG TABLET PO SCH (20:55)
[2019-12-03] MEDS: DILTIAZEM 240 MG CAP.XL.24H PO SCH (20:55)
[2019-12-04] MEDS: ACETAMINOPHEN 325 MG TABLET PO PRN (03:27)
[2019-12-04] MEDS: metroNIDAZOLE 500 MG/100 ML BAG IV SCH ×2 (05:05→13:53)
[2019-12-04] MEDS: OMEPRAZOLE 20 MG CAPSULE PO SCH (07:43)
[2019-12-04] MEDS: MYCOPHENOLATE 250 MG CAPSULE PO SCH (07:43)
[2019-12-04] MEDS: LEVOTHYROXINE 100 MCG TABLET PO SCH (07:44)
[2019-12-04 07:46] LABS: Bilirubin,Direct < 0.2 mg/dL (0.0-0.3); Chloride 107 mmol/L (96-108)
[2019-12-04 07:47] LABS: ALT/SGPT 11 U/l (0-40); AST/SGOT 20 U/l (0-37); Albumin/Globulin Ratio 1.4 (1.0-2.3); Alkaline Phosphatase 49 U/L (39-117); Bilirubin,Total 0.3 mg/dL (0.0-1.0); Blood Urea Nitrogen 19 mg/dl (8-23); Calcium 9.1 mg/dl (8.6-10.4); Carbon Dioxide 16 mmol/L (22-30); Globulin 2.2 gm/dL (2.2-3.7); Glomerular Filtration Rate 27; Glucose 74 mg/dL (70-105); Lactate Dehydrogenase 202 U/L (94-250); Phosphorous 2.5 mg/dL (2.7-4.5); Triglycerides 96 mg/dl (<150); Uric Acid 6.2 mg/dL (2.5-8.0)
[2019-12-04] MEDS ORDERED: MAGNESIUM SULFATE 8.12 MEQ in DEXTROSE 5% IN WATER 50 ML IV ONE (07:55)
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
[2019-12-04] MEDS: 0.9 % SODIUM CHLORIDE 1,000 ML IV SCH (08:57)
[2019-12-04] MEDS: predniSONE 5 MG TABLET PO SCH (08:58)
[2019-12-04] MEDS: SPIRONOLACTONE 25 MG TABLET PO SCH (08:58)
[2019-12-04] MEDS: LOSARTAN 50 MG TABLET PO SCH (08:58)
[2019-12-04] MEDS: LEVOFLOXACIN 250 MG/50 ML BAG IV SCH (08:58)
[2019-12-04] MEDS: CALCITONIN NASAL SPRAY 3.7ML BOTTLE NS SCH (09:10)
[2019-12-04] MEDS: ONDANSETRON 4 MG/2 ML VIAL IV PRN (10:46)
[2019-12-04] MEDS: TACROLIMUS 1 MG CAPSULE PO SCH (10:46)
--- NOTE | 2019-12-04 16:21 | Discharge Summary ---
Providers - Providers Patient information: Note initiated : 12/04/19 at 4:17 pm Service Date, if different from initiated Date: [] Patient: Wendy Ellsworth 64 y/o F admitted on 11/30/19 for constipation. Chief Complaint: [] Date of admission: 11/30/19 Discharge date: 12/04/19 Attending physician: Rosa Elena lopez md Hospitalization Hospital Course: 64-year-old female admitted through the emergency room on 30 November 2019 with acute diverticulitis. She presented with a 2 day history of increasing severe left sided and hypogastric pain with nausea. She also had decreased in flatus a nd bowel movements. CT of the abdomen showed acute diverticulitis of the distal descending and proximal sigmoid colon. She had a white count of 13,000. However, she is on antirejection drugs because of kidney transplant many years ago. She responded to IV antibiotics and gradually had decreasing pain. She was not febrile. Her white blood count did not drop significantly and has remained in the 13,000 range throughout her hospitalization. At this time. She has no abdominal tenderness and she has no pain. She has been having flatus and bowel movements. She is clinically stable and will be discharged home on 3 weeks of oral antibiotics which will include ciprofloxacin and Flagyl. I will follow her up in the office in 1 week. Discharge diagnosis: acute diverticulitis Secondary discharge diagnosis: Status post renal transplant. Chronic immunosuppressive drug therapy. History of lupus nephritis with end-stage renal disease Hypertension Reason for admission: severe abdominal pain, nausea, vomiting, leukocytosis Procedures: None Pertinent studies/significant findings: CT of abdomen and pelvis Complications: None Exam Temp Pulse Resp BP Pulse Ox 98.1 F 84 20 152/85 91 12/04/19 12:00 12/04/19 12:00 12/04/19 12:00 12/04/19 12:12/04/19 12:00 - General physical appearance well developed, well nourished, no distress - Eyes PERRL, normal ocular movement - ENT normal pinna, normal nares, normal mucosa, no hearing loss, no congestion - Head Head exam IM: Present: atraumatic, normocephalic - Neck no masses, no bruits, trachea midline, no lymphadenopathy, no venous distension - Cardiovascular Cardiovascular exam IM: Present: normal rate and rhythm - Respiratory normal expansion, normal respiratory effort, clear to percussion, clear to auscultation - Abdomen Abdomen: Present: soft, tender (minimal tenderness in left lower abdomen; minimal distention with active bowel sounds; no palpable mass), bowel sounds Hernia: Present: none - Genitourinary Present: normal external genitalia - Integumentary Present: no rash, no growths, no abnormal pigmentation - Neurologic Present: normal coordination, normal sensation - Musculoskeletal Present: normal gait, normal posture, other (. Major degloving of skin and subcutaneous tissue, right lower extremity; remote; healed) - Psychiatric Present: oriented to time, oriented to person, oriented to place, speech is no rmal, memory intact Discharge Plan - Patient/Caregiver Discharge Instructions Activity: increase activity as tolerated Diet: Low Fiber Prescriptions: oxyCODONE HCL/ACETAMINOPHEN [Endocet 10-325 mg Tablet] 1 each PO Q4HP PRN #42 tab PRN Reason: Pain Level > 6 Transmission Status: Received by [facility] Levofloxacin [Levaquin] 250 mg PO DAILY #14 tab Transmission Status: Pending to [facility] metroNIDAZOLE [Metronidazole] 500 mg PO Q8 #30 tab Transmission Status: Pending to [facility] - Follow up Plan Follow up with: Turner Devine MD [Primary Care Provider] - Rosa Elena Garay MD [Physician] - 12/12/19 3:15 pm Disposition: Home, Self-Care Prognosis: Good Rehab Potential: Good I certify that the patient requires SNF services.: No Overall status at discharge: patient is progressing back to baseline Pending Studies Resuscitation Status Full Code Diet GI Soft/Transitional Start MonDec 03 1720 Acetaminophen (Tylenol) 650 mg PO Q6HP PRN; Protocol PRN Reason: Pain Last Admin: 12/04/19 03:27 Dose: 650 mg Documented by: Admin: 12/03/19 14:11 Dose: 650 mg Documented by: Admin: 12/02/19 22:53 Dose: 650 mg Documented by: Admin: 12/02/19 11:02 Dose: 650 mg Documented by: DAHLIA Calcitonin [place] (Miacalcin) 1 spray NS DAILY [facility] Last Admin: 12/04/19 09:10 Dose: 1 spray Documented by: Admin: 12/03/19 08:55 Dose: Not Given Documented by: Admin: 12/02/19 08:49 Dose: Not Given Documented by: Admin: 12/01/19 09:30 Dose: Not Given Documented by: Admin: 11/30/19 10:00 Dose: Not Given Documented by: CASANDRA Diltiazem HCl (Cardizem Cd) 240 mg PO [facility] Last Admin: 12/03/19 20:55 Dose: 240 mg Documented by: Admin: 12/02/19 20:23 Dose: 240 mg Documented by: Admin: 12/01/19 20:07 Dose: 240 mg Documented by: ROMEL Donepezil HCl (Aricept) 10 mg PO [facility] Last Admin: 12/03/19 20:55 Dose: 10 mg Documented by: Admin: 12/02/19 20:23 Dose: 10 mg Documented by: Admin: 12/01/19 20:08 Dose: 10 mg Documented by: Admin: 12/01/19 10:21 Dose: 10 mg Documented by: Admin: 11/30/19 21:03 Dose: Not Given Documented by: MIHAI Hydromorphone HCl (Dilaudid) 0.5 mg IV Q15MIN PRN; Protocol PRN Reason: Per Pain Protocol Last Admin: 11/30/19 00:46 Dose: 0.5 mg Documented by: RADHA Sodium Chloride (Sodium Chloride 0.9%) 1,000 mls @ 100 mls/hr IV .Q10H [facility] Last Admin: 12/04/19 08:57 Dose: 100 mls/hr Documented by: Infusion: 12/04/19 06:37 Dose: 100 mls/hr Documented by: Admin: 12/03/19 20:37 Dose: 100 mls/hr Documented by: Infusion: 12/03/19 20:29 Dose: 100 mls/hr Documented by: Admin: 12/03/19 10:29 Dose: 100 mls/hr Documented by: Infusion: 12/03/19 10:29 Dose: 100 mls/hr Documented by: Admin: 12/03/19 06:04 Dose: 100 mls/hr Documented by: Infusion: 12/03/19 04:58 Dose: 100 mls/hr Documented by: Admin: 12/02/19 22:58 Dose: Not Given Documented by: Admin: 12/02/19 18:58 Dose: 100 mls/hr Documented by: Infusion: 12/02/19 15:21 Dose: 100 mls/hr Documented by: Admin: 12/02/19 14:00 Dose: Not Given Documented by: Admin: 12/02/19 05:21 Dose: 100 mls/hr Documented by: Infusion: 12/02/19 04:04 Dose: 100 mls/hr Documented by: Admin: 12/01/19 18:04 Dose: 100 mls/hr Documented by: Infusion: 12/01/19 12:54 Dose: 0 mls/hr Documented by: Admin: 12/01/19 10:22 Dose: Not Given Documented by: Admin: 12/01/19 03:42 Dose: 100 mls/hr Documented by: Infusion: 12/01/19 00:41 Dose: 100 mls/hr Documented by: Admin: 11/30/19 14:41 Dose: 100 mls/hr Documented by: Infusion: 11/30/19 13:56 Dose: 100 mls/hr Documented by: Admin: 11/30/19 12:12 Dose: Not Given Documented by: Admin: 11/30/19 03:56 Dose: 100 mls/hr Documented by: TEMITOPE Levofloxacin (Levaquin) 250 mg in 50 mls @ 50 mls/hr IV Q24H [facility] Admin: 12/04/19 08:58 Dose: 50 mls/hr Documented by: Infusion: 12/03/19 09:54 Dose: 50 mls/hr Documented by: Admin: 12/03/19 08:54 Dose: 50 mls/hr Documented by: Infusion: 12/02/19 09:48 Dose: 50 mls/hr Documented by: Admin: 12/02/19 08:48 Dose: 50 mls/hr Documented by: Infusion: 12/01/19 11:23 Dose: 0 mls/hr Documented by: Admin: 12/01/19 10:23 Dose: 50 mls/hr Documented by: Infusion: 11/30/19 18:06 Dose: 0 mls/hr Documented by: Admin: 11/30/19 17:06 Dose: 50 mls/hr Documented by: CASANDRA Metronidazole (Flagyl) 500 mg in 100 mls @ 100 mls/hr IV Q8H BK; Protocol Last Admin: 12/04/19 13:53 Dose: 100 mls/hr Documented by: Infusion: 12/04/19 06:10 Dose: 0 mls/hr Documented by: Admin: 12/04/19 05:05 Dose: 100 mls/hr Documented by: Infusion: 12/03/19 22:55 Dose: 0 mls/hr Documented by: Admin: 12/03/19 21:54 Dose: 100 mls/hr Documented by: Infusion: 12/03/19 15:04 Dose: 100 mls/hr Documented by: Admin: 12/03/19 14:04 Dose: 100 mls/hr Documented by: Infusion: 12/03/19 09:59 Dose: 0 mls/hr Documented by: Admin: 12/03/19 07:18 Dose: 100 mls/hr Documented by: Infusion: 12/02/19 22:53 Dose: 0 mls/hr Documented by: Admin: 12/02/19 21:53 Dose: 100 mls/hr Documented by: Infusion: 12/02/19 15:30 Dose: 0 mls/hr Documented by: Admin: 12/02/19 14:27 Dose: 100 mls/hr Documented by: DAHLIA Latanoprost (Xalatan Ophth Drops) 1 gtt OS HS [facility] Last Admin: 12/03/19 20:55 Dose: 1 gtt Documented by: Admin: 12/02/19 20:24 Dose: Not Given Documented by: Admin: 12/01/19 20:10 Dose: Not Given Documented by: ROMEL Levothyroxine Sodium (Synthroid) 100 mcg PO QAMAC [facility] Admin: 12/04/19 07:44 Dose: 100 mcg Documented by: Admin: 12/03/19 07:19 Dose: 100 mcg Documented by: Admin: 12/02/19 07:26 Dose: 100 mcg Documented by: Admin: 12/01/19 10:21 Dose: 100 mcg Documented by: Admin: 11/30/19 09:59 Dose: 100 mcg Documented by: CASANDRA Losartan Potassium (Cozaar) 50 mg PO DAILY [facility] Admin: 12/04/19 08:58 Dose: 50 mg Documented by: Admin: 12/03/19 08:55 Dose: 50 mg Documented by: Admin: 12/02/19 08:49 Dose: 50 mg Documented by: Admin: 12/01/19 10:21 Dose: 50 mg Documented by: Admin: 11/30/19 21:18 Dose: 50 mg Documented by: Admin: 11/30/19 10:10 Dose: Not Given Documented by: CASANDRA Morphine Sulfate (Morphine) 2 mg IV Q1HP PRN; Protocol PRN Reason: Per Pain Protocol [facility] Admin: 12/03/19 10:28 Dose: 2 mg Documented by: Admin: 12/03/19 03:19 Dose: 2 mg Documented by: Admin: 12/02/19 05:20 Dose: 2 mg Documented by: Admin: 12/01/19 23:12 Dose: 2 mg Documented by: Admin: 12/01/19 19:40 Dose: 2 mg Documented by: Admin: 12/01/19 15:02 Dose: 2 mg Documented by: Admin: 12/01/19 04:04 Dose: 2 mg Documented by: Admin: 12/01/19 03:06 Dose: 2 mg Documented by: Admin: 11/30/19 21:18 Dose: 2 mg Documented by: MIHAI Mycophenolate Mofetil (Cellcept) 750 mg PO BID@0700,2000 [facility] Admin: 12/04/19 07:43 Dose: 750 mg Documented by: Admin: 12/03/19 19:51 Dose: 750 mg Documented by: Admin: 12/03/19 07:19 Dose: 750 mg Documented by: Admin: 12/02/19 20:23 Dose: 750 mg Documented by: Admin: 12/02/19 07:26 Dose: 750 mg Documented by: Admin: 12/01/19 20:06 Dose: 750 mg Documented by: Admin: 12/01/19 09:30 Dose: Not Given Documented by: Admin: 11/30/19 20:58 Dose: 750 mg Documented by: Admin: 11/30/19 10:10 Dose: Not Given Documented by: CASANDRA Omeprazole (Prilosec) 40 mg PO ACB [facility] Last Admin: 12/04/19 07:43 Dose: 40 mg Documented by: Admin: 12/03/19 07:19 Dose: 40 mg Documented by: Admin: 12/02/19 07:26 Dose: 40 mg Documented by: Admin: 12/01/19 10:21 Dose: 40 mg Documented by: Admin: 11/30/19 09:59 Dose: 40 mg Documented by: CASANDRA Ondansetron HCl (Zofran) 4 mg IV Q4HP PRN PRN Reason: Nausea And Vomiting Last Admin: 12/04/19 10:46 Dose: 4 mg Documented by: Admin: 12/02/19 22:52 Dose: 4 mg Documented by: Admin: 11/30/19 09:57 Dose: 4 mg Documented by: CASANDRA Galantamine Hbr 4 Mg (Tab) 1 dose PO DAILY [facility] Admin: 12/04/19 08:59 Dose: Not Given Documented by: Admin: 12/03/19 08:56 Dose: Not Given Documented by: Admin: 12/02/19 08:49 Dose: Not Given Documented by: Admin: 12/01/19 10:23 Dose: Not Given Documented by: CASANDRA [facility] Admin: 12/04/19 08:58 Dose: 5 mg Documented by: Admin: 12/03/19 08:55 Dose: 5 mg Documented by: Admin: 12/02/19 08:48 Dose: 5 mg Documented by: Admin: 12/01/19 10:22 Dose: 5 mg Documented by: CASANDRA Spironolactone (Aldactone) 50 mg PO DAILY [facility] Admin: 12/04/19 08:58 Dose: 50 mg Documented by: Admin: 12/03/19 08:55 Dose: 50 mg Documented by: Admin: 12/02/19 08:49 Dose: 50 mg Documented by: Admin: 12/01/19 10:21 Dose: 50 mg Documented by: Admin: 11/30/19 09:59 Dose: 50 mg Documented by: CASANDRA Tacrolimus (Tacrolimus) 3 mg PO BID [facility] Admin: 12/04/19 10:46 Dose: 3 mg Documented by: Admin: 12/03/19 21:53 Dose: 3 mg Documented by: Admin: 12/03/19 08:54 Dose: 3 mg Documented by: Admin: 12/02/19 20:23 Dose: 3 mg Documented by: Admin: 12/02/19 08:50 Dose: 3 mg Documented by: Admin: 12/01/19 20:08 Dose: 3 mg Documented by: Admin: 12/01/19 09:30 Dose: Not Given Documented by: Admin: 11/30/19 21:00 Dose: 3 mg Documented by: Admin: 11/30/19 10:10 Dose: Not Given Documented by: CASANDRA Vitamin D (Vitamin D3) 5,000 unit PO HS [facility] Admin: 12/03/19 20:55 Dose: 5,000 unit Documented by: Admin: 12/02/19 20:23 Dose: 5,000 unit Documented by: Admin: 12/01/19 20:07 Dose: 5,000 unit Documented by: Admin: 11/30/19 21:01 Dose: Not Given Documented by: MIHAI Shift Summary 12/04/19 02:27 Shift Summary by Yanet Euceda Pt is A&Ox4. Up ad sherry to BS. SBA w/cane in hallway. HTN (SBP seems to run in ~150s, highest 172/91 so far this shift). Other VSS on RA. IV to LFA w/NS @ 100 ml/hr. Receiving scheduled Flagyl & Levaquin. Hx kidney transplant. Home meds - Nasal spray and eye drops in fridge in med room. No c/o nausea. No c/o pain. Will update with verbal report. Initialized on 12/04/19 02:27 - END OF NOTE
== END 2019-12-04 17:30 | disposition home or self-care (01) | DRG 392 ==
LOC: ED 20:35 → MEDSUR 11-30 03:08 → OBSVTOIN 11-30 03:14 → INTOOBSV 11-30 03:14 → MEDSUR 11-30 03:14
PROVIDERS: ADMIT Family Medicine Adult Medicine; ATTEND Family Medicine Adult Medicine

== ENCOUNTER 2021-05-15 19:44 | Inpatient (IN) ==
--- NOTE | 2021-05-15 20:18 | Emergency Department Note ---
HPI General Chief complaint: Constipation Stated complaint: constipation Time Seen by Provider: 05/15/21 20:15 Source: EMS Mode of arrival: ambulatory Limitations: no limitations History of Present Illness HPI Narrative: Narrative: Patient is a 66-year-old female who presents by ambulance with abdominal pain. She was seen here yesterday and diagnosed with diverticulitis by CT scan noted to have a leukocytosis of 15,000 and was prescribed outpatient antibiotics, the patient reports she is unable to keep anything down and is having worsening nausea and vomiting. Related Data Home Medications Medication Instructions Recorded Confirmed omeprazole 20 mg PO DAILY 08/11/15 05/15/21 spironolactone 50 mg PO DAILY 08/11/15 05/15/21 levothyroxine 100 mcg intravenous 100 mcg PO QDAY ml 02/05/16 05/15/21 powder for solution magnesium 400MG 1 tab PO QDAY 02/05/16 12/17/19 tacrolimus 1 mg capsule, 3 mg PO Q12H cap 02/05/16 05/15/21 immediate-release prednisone 5 mg tablet 5 mg PO QDAY 06/07/17 05/15/21 donepezil 10 mg PO HS 04/22/19 05/15/21 diltiazem HCl 120 mg PO DAILY 11/30/19 05/15/21 amlodipine 10 mg PO DAILY 05/15/21 05/15/21 mycophenolate mofetil 750 mg PO BID 05/15/21 05/15/21 torsemide 20 mg PO DAILY 05/15/21 05/15/21 Previous Rx's Medication Instructions Recorded losartan 50 mg tablet 50 mg PO DAILY #90 tab 09/11/18 amoxicillin-pot clavulanate 1 tab PO Q12H 10 Days #20 tab 05/14/21 [Augmentin] glycerin (adult) 1 supp OR QDAY PRN #12 ea 05/14/21 polyethylene glycol 3350 [Miralax] 17 g PO BID PRN #119 g 05/14/21 Allergies Allergy/AdvReac Type Severity Reaction Status Date / Time ciprofloxacin Allergy Severe Cramping Verified 05/16/21 01:26 of the Muscles levofloxacin Allergy Severe Other Verified 05/16/21 01:26 Cephalosporins AdvReac Mild Rash Verified 05/16/21 01:26 cilastatin [From Primaxin] AdvReac Mild Rash Verified 05/16/21 01:26 droperidol [From Inapsine] AdvReac Mild Rash Verified 05/16/21 01:26 imipenem [From Primaxin] AdvReac Mild Rash Verified 05/16/21 01:26 Labetalol [From Trandate] AdvReac Mild Rash Verified 05/16/21 01:26 meperidine [From Demerol] AdvReac Mild Rash Verified 05/16/21 01:26 metronidazole [From Flagyl] AdvReac Mild Rash Verified 05/16/21 01:26 pentazocine [From Talwin] AdvReac Mild Rash Verified 05/16/21 01:26 phenobarbital AdvReac Mild Rash Verified 05/16/21 01:26 propoxyphene AdvReac Mild Rash Verified 05/16/21 01:26 [From Darvocet-N] Quinolones AdvReac Mild Muscle Pain Verified 05/16/21 01:26 tobramycin AdvReac Mild Rash Verified 05/16/21 01:26 Review of Systems ROS ROS Narrative: Narrative: All systems ED: reviewed and negative except as stated. PFSH Narrative Patient History Narrative: Narrative: Medical/Surgical/Family History All Active Problems Matos's palsy (Acute) Diverticulitis (Acute) Constipation (Acute) Acute diverticulitis of intestine (Acute) Kidney transplant recipient (Acute) [place] kidney injury (Acute) Cardiomegaly (Acute) Elevated brain natriuretic peptide (BNP) level (Acute) Fall (Acute) Hematoma of parietal scalp (Acute) Depression with suicidal ideation (Acute) Acute UTI (urinary tract infection) (Acute) Ureterolithiasis (Acute) Compression fracture of T11 vertebra (Acute) Suicide attempt (Acute) Laceration (Acute) Acute UTI (Acute) Anemia (Acute) CRF (chronic renal failure) (Acute) Acute alteration in mental status (Acute) Right shoulder pain (Acute) Acute right-sided thoracic back pain (Acute) Hypertension (Acute) Urinary frequency (Acute) 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) Secondary hyperparathyroidism of renal origin (Chronic) Hyperlipidemia (Chronic) Glaucoma (Chronic) Macular degeneration (Chronic) Diverticulitis (Chronic) Idiopathic aseptic necrosis of femur (Chronic) Osteoporosis (Chronic) Vitamin D deficiency (Chronic) Anemia (Chronic) Essential hypertension (Chronic) Chronic kidney disease (CKD) (Chronic) Medical History Anemia Borderline hyperglycemia Chronic kidney disease (CKD) Stage 3 Dislocation, finger, metacarpophalangeal joint Diverticulitis Essential hypertension Glaucoma Hyperlipidemia Idiopathic aseptic necrosis of femur Macular degeneration 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 Patient with chronic kidney insufficiency Osteoporosis Other halfway (current) drug therapy Phlebitis and thrombophlebitis Secondary hyperparathyroidism of renal origin Urinary tract infection Vitamin D deficiency Surgical History 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 Family history of AICD (automatic internal cardiac defibrillator) (~1996) History of hand surgery (~08/2015) History of hysterectomy (~1978) History of intraocular lens implant February & March 1989 History of kidney transplant (07/27/00) History of knee surgery (~04/2009) History of orthopedic surgery (04/28/96) mohamud placement in right leg 04/28/96 @ [facility]; muscle relocation and skin grafts of right leg 04/29/96 @ [facility] History of parathyroidectomy (11/27/95) History of surgery fistula placement February 1993 @ [facility]; fistula declot; Graft placement upper right arm 10/1999 @ [facility] Kidney replaced by transplant Status post biopsy of kidney (~03/2007) Family History Father Hypertension CVA (cerebral vascular accident) Colon polyps needed surgical resection/partial colectomy Prostate cancer Hyperlipidemia Social History Smoking Status: Never smoker Exam Narrative Narrative: Narrative: General Limitations: no limitations General appearance: Present alert Head Head: Present atraumatic and normocephalic Eye Eye: Present normal appearance, PERRL and EOMI ENT ENT: Present normal exam, normal oropharynx and mucous membranes moist Neck Neck: Present normal inspection, full ROM and trachea midline Chest Chest: Present normal inspection and symmetric chest wall rise Respiratory Respiratory: Present normal lung sounds bilaterally Cardiovascular Cardiovascular: Present regular rate and normal rhythm Adbominal Abdominal: Present soft, tenderness, guarding, hyperactive bowel sounds and other (Midline scar consistent with previous abdominal surgery.); Absent rebound, rigidity, organomegaly and pulsatile mass Rectal Rectal: Present deferred Extremities Extremities: Present normal inspection and full ROM; Absent tenderness Back Back: Present normal inspection and full ROM; Absent tenderness Neurological Neurological: Present alert, oriented X3, CN II-XII intact, normal gait, motor sensory deficit and reflexes normal Psychiatric Psychiatric: Present normal affect Skin Skin: Present warm (WNL); Absent rash Course Course Course Narrative: EKG shows a rate of 65, OR interval 160, QRS 82, QTc 454, no acute ST segment elevation or depression. No STEMI, nonspecific EKG. Vital Signs Vital signs: Vital Signs Temperature 98.8 F 05/15/21 19:46 Temperature 98.3 F 05/16/21 04:01 Pulse Rate 75 05/16/21 04:01 Respiratory Rate 26 H 05/16/21 04:01 Blood Pressure 152/67 05/16/21 04:01 Pulse Oximetry (%) 99 05/16/21 04:01 [facility] MDM Narrative Medical decision making narrative: Narrative: Patient will likely require inpatient admission for diverticulitis given her worsening pain and inability to tolerate outpatient oral antibiotics. Consulted the general surgeon, Dr. Woodson, who has agreed to evaluate this patient as an inpatient business transformation consultant. I spoke with the hospitalist, Dr. Villanueva, who has agreed to admit this patient. Lab Data Result diagrams: 05/15/21 20:35 05/15/21 20:35 Labs: Lab Results 05/15/21 05/15/21 05/15/21 Range/Units 20:33 20:33 20:35 WBC 16.0 H (4.5-11.0) K/mcL RBC 3.84 L (4.00-5.20) M/mcL Hgb 11.2 L (12.0-15.0) g/dL Hct 35.4 L (36.0-48.0) % MCV 92.2 (80.0-100.0) fL MCH 29.2 (26.0-34.0) pg MCHC 31.6 (31.0-36.0) g/dL RDW 14.1 (11.5-14.5) % Plt Count 337 (140-440) K/mcL MPV 10.4 (7.4-10.4) fL Neut % (Auto) 78.3 H (38.0-78.0) % Lymph % (Auto) 11.1 L (15.0-49.0) % [place] % (Auto) 9.7 (1.0-12.0) % Eos % (Auto) 0.5 (0.0-7.0) % Baso % (Auto) 0.4 (0.0-2.0) % Lymph # (Auto) 1.78 (1.50-4.80) K/mcL [place] # (Auto) 1.55 H (0.10-0.90) K/mcL Eos # (Auto) 0.08 (0.00-0.70) K/mcL Baso # (Auto) 0.06 (0.00-0.20) K/mcL Seg Neutrophils % (38-78) % Lymphocytes % (15-49) % Monocytes % (Manual) (1-12) % Absolute Neutrophils 12.50 H (1.80-8.00) K/mcL Platelet Estimate (Normal) RBC Morphology (Normal) Hypochromasia (None Seen) PT (11.9-14.5) sec INR (0.9-1.1) VBG Lactic Acid (0.5-2.0) mmol/L Sodium (133-145) mmol/L Potassium (3.3-5.1) mmol/L Chloride (96-108) mmol/L Carbon Dioxide (22-30) mmol/L Anion Gap (8.0-16.0) BUN (8-23) mg/dL Creatinine (0.6-1.1) mg/dL GFR Calculation Glucose (70-105) mg/dL Calcium (8.6-10.4) mg/dL Phosphorus (2.5-4.5) mg/dL Magnesium (1.6-2.5) mg/dL Total Bilirubin (0.1-1.0) mg/dL AST (<32) U/L ALT (<40) U/L Alkaline Phosphatase (39-117) U/L CK-MB (CK-2) (<3.7) ng/mL Troponin T (<0.03) ng/mL NT-Pro-B Natriuret Pep (<125.0) pg/mL Total Protein (5.9-8.4) gm/dL Albumin (3.2-5.2) gm/dL Globulin (2.2-3.7) gm/dL Albumin/Globulin Ratio (1.0-2.3) Lipase (7-60) U/L Urine Color Yellow Urine Appearance Clear (Clear) Urine pH 5.0 (5.0-9.0) Ur Specific [place] 1.009 (1.000-1.035) Urine Protein 100 A (Negative) mg/dL Urine Glucose (UA) Negative (Negative) mg/dL Urine Ketones 5 A (Negative) mg/dL Urine Occult Blood Negative (Negative) mg/dL Urine Nitrate Negative (Negative) Urine Bilirubin Negative (Negative) mg/dL Urine Urobilinogen Negative mg/dL Ur Leukocyte Esterase Negative (Negative) /ug Urine RBC < 1 (0-3) /hpf Urine WBC 1 (0-4) /hpf Ur Squamous Epith Cells 1 (0-4) /hpf Urine Bacteria None (0) /hpf Urine Mucus Few A (None) /hpf Ur Culture Indicated? No Urine Opiates Screen None detected Ur Opiates Confirm TNP Ur Oxycodone Screen Suspect positive A Urine Methadone Screen None detected Ur Methadone Confirm TNP Ur Barbiturates Screen None detected Ur Barbiturate Confirm TNP Ur Phencyclidine Scrn None detected Urine PCP Confirm TNP Ur Amphetamines Screen None detected U Amphetamines Confirm TNP U Benzodiazepines Scrn None detected U Benzodiazepine Confm TNP Urine Cocaine Screen None detected Urine Cocaine Confirm TNP U Cannabinoids Confirm TNP U Marijuana (THC) Screen None detected Ethyl Alcohol (<0.010) gm/dL 05/15/21 05/15/21 05/15/21 Range/Units 20:35 20:35 20:35 WBC (4.5-11.0) K/mcL RBC (4.00-5.20) M/mcL Hgb (12.0-15.0) g/dL Hct (36.0-48.0) % MCV (80.0-100.0) fL MCH (26.0-34.0) pg MCHC (31.0-36.0) g/dL RDW (11.5-14.5) % Plt Count (140-440) K/mcL MPV (7.4-10.4) fL Neut % (Auto) (38.0-78.0) % Lymph % (Auto) (15.0-49.0) % [place] % (Auto) (1.0-12.0) % Eos % (Auto) (0.0-7.0) % Baso % (Auto) (0.0-2.0) % Lymph # (Auto) (1.50-4.80) K/mcL [place] # (Auto) (0.10-0.90) K/mcL Eos # (Auto) (0.00-0.70) K/mcL Baso # (Auto) (0.00-0.20) K/mcL Seg Neutrophils % (38-78) % Lymphocytes % (15-49) % Monocytes % (Manual) (1-12) % Absolute Neutrophils (1.80-8.00) K/mcL Platelet Estimate (Normal) RBC Morphology (Normal) Hypochromasia (None Seen) PT 14.1 (11.9-14.5) sec INR 1.0 (0.9-1.1) VBG Lactic Acid (0.5-2.0) mmol/L Sodium 132 L (133-145) mmol/L Potassium 4.9 (3.3-5.1) mmol/L Chloride 97 (96-108) mmol/L Carbon Dioxide 18 L (22-30) mmol/L Anion Gap 17.0 H (8.0-16.0) BUN 40 H (8-23) mg/dL Creatinine 2.2 H (0.6-1.1) mg/dL GFR Calculation 22 Glucose 88 (70-105) mg/dL Calcium 9.4 (8.6-10.4) mg/dL Phosphorus 2.4 L (2.5-4.5) mg/dL Magnesium 2.3 (1.6-2.5) mg/dL Total Bilirubin 0.6 (0.1-1.0) mg/dL AST 16 (<32) U/L ALT 9 (<40) U/L Alkaline Phosphatase 89 (39-117) U/L CK-MB (CK-2) 1.1 (<3.7) ng/mL Troponin T (<0.03) ng/mL NT-Pro-B Natriuret Pep 1967.0 H (<125.0) pg/mL Total Protein 6.3 (5.9-8.4) gm/dL Albumin 3.6 (3.2-5.2) gm/dL Globulin 2.7 (2.2-3.7) gm/dL Albumin/Globulin Ratio 1.3 (1.0-2.3) Lipase 9 (7-60) U/L Urine Color Urine Appearance (Clear) Urine pH (5.0-9.0) Ur Specific [place] (1.000-1.035) Urine Protein (Negative) mg/dL Urine Glucose (UA) (Negative) mg/dL Urine Ketones (Negative) mg/dL Urine Occult Blood (Negative) mg/dL Urine Nitrate (Negative) Urine Bilirubin (Negative) mg/dL Urine Urobilinogen mg/dL Ur Leukocyte Esterase (Negative) /ug Urine RBC (0-3) /hpf Urine WBC (0-4) /hpf Ur Squamous Epith Cells (0-4) /hpf Urine Bacteria (0) /hpf Urine Mucus (None) /hpf Ur Culture Indicated? Urine Opiates Screen Ur Opiates Confirm Ur Oxycodone Screen Urine Methadone Screen Ur Methadone Confirm Ur Barbiturates Screen Ur Barbiturate Confirm Ur Phencyclidine Scrn Urine PCP Confirm Ur Amphetamines Screen U Amphetamines Confirm U Benzodiazepines Scrn U Benzodiazepine Confm Urine Cocaine Screen Urine Cocaine Confirm U Cannabinoids Confirm U Marijuana (THC) Screen Ethyl Alcohol (<0.010) gm/dL 05/15/21 05/15/21 05/15/21 Range/Units 20:35 20:35 20:35 WBC (4.5-11.0) K/mcL RBC (4.00-5.20) M/mcL Hgb (12.0-15.0) g/dL Hct (36.0-48.0) % MCV (80.0-100.0) fL MCH (26.0-34.0) pg MCHC (31.0-36.0) g/dL RDW (11.5-14.5) % Plt Count (140-440) K/mcL MPV (7.4-10.4) fL Neut % (Auto) (38.0-78.0) % Lymph % (Auto) (15.0-49.0) % [place] % (Auto) (1.0-12.0) % Eos % (Auto) (0.0-7.0) % Baso % (Auto) (0.0-2.0) % Lymph # (Auto) (1.50-4.80) K/mcL [place] # (Auto) (0.10-0.90) K/mcL Eos # (Auto) (0.00-0.70) K/mcL Baso # (Auto) (0.00-0.20) K/mcL Seg Neutrophils % 81 H (38-78) % Lymphocytes % 9 L (15-49) % Monocytes % (Manual) 10 (1-12) % Absolute Neutrophils (1.80-8.00) K/mcL Platelet Estimate Normal (Normal) RBC Morphology Abnormal A (Normal) Hypochromasia 1+ A (None Seen) PT (11.9-14.5) sec INR (0.9-1.1) VBG Lactic Acid (0.5-2.0) mmol/L Sodium (133-145) mmol/L Potassium (3.3-5.1) mmol/L Chloride (96-108) mmol/L Carbon Dioxide (22-30) mmol/L Anion Gap (8.0-16.0) BUN (8-23) mg/dL Creatinine (0.6-1.1) mg/dL GFR Calculation Glucose (70-105) mg/dL Calcium (8.6-10.4) mg/dL Phosphorus (2.5-4.5) mg/dL Magnesium (1.6-2.5) mg/dL Total Bilirubin (0.1-1.0) mg/dL AST (<32) U/L ALT (<40) U/L Alkaline Phosphatase (39-117) U/L CK-MB (CK-2) (<3.7) ng/mL Troponin T 0.01 (<0.03) ng/mL NT-Pro-B Natriuret Pep (<125.0) pg/mL Total Protein (5.9-8.4) gm/dL Albumin (3.2-5.2) gm/dL Globulin (2.2-3.7) gm/dL Albumin/Globulin Ratio (1.0-2.3) Lipase (7-60) U/L Urine Color Urine Appearance (Clear) Urine pH (5.0-9.0) Ur Specific [place] (1.000-1.035) Urine Protein (Negative) mg/dL Urine Glucose (UA) (Negative) mg/dL Urine Ketones (Negative) mg/dL Urine Occult Blood (Negative) mg/dL Urine Nitrate (Negative) Urine Bilirubin (Negative) mg/dL Urine Urobilinogen mg/dL Ur Leukocyte Esterase (Negative) /ug Urine RBC (0-3) /hpf Urine WBC (0-4) /hpf Ur Squamous Epith Cells (0-4) /hpf Urine Bacteria (0) /hpf Urine Mucus (None) /hpf Ur Culture Indicated? Urine Opiates Screen Ur Opiates Confirm Ur Oxycodone Screen Urine Methadone Screen Ur Methadone Confirm Ur Barbiturates Screen Ur Barbiturate Confirm Ur Phencyclidine Scrn Urine PCP Confirm Ur Amphetamines Screen U Amphetamines Confirm U Benzodiazepines Scrn U Benzodiazepine Confm Urine Cocaine Screen Urine Cocaine Confirm U Cannabinoids Confirm U Marijuana (THC) Screen Ethyl Alcohol < 0.010 (<0.010) gm/dL 05/15/21 Range/Units 20:45 WBC (4.5-11.0) K/mcL RBC (4.00-5.20) M/mcL Hgb (12.0-15.0) g/dL Hct (36.0-48.0) % MCV (80.0-100.0) fL MCH (26.0-34.0) pg MCHC (31.0-36.0) g/dL RDW (11.5-14.5) % Plt Count (140-440) K/mcL MPV (7.4-10.4) fL Neut % (Auto) (38.0-78.0) % Lymph % (Auto) (15.0-49.0) % [place] % (Auto) (1.0-12.0) % Eos % (Auto) (0.0-7.0) % Baso % (Auto) (0.0-2.0) % Lymph # (Auto) (1.50-4.80) K/mcL [place] # (Auto) (0.10-0.90) K/mcL Eos # (Auto) (0.00-0.70) K/mcL Baso # (Auto) (0.00-0.20) K/mcL Seg Neutrophils % (38-78) % Lymphocytes % (15-49) % Monocytes % (Manual) (1-12) % Absolute Neutrophils (1.80-8.00) K/mcL Platelet Estimate (Normal) RBC Morphology (Normal) Hypochromasia (None Seen) PT (11.9-14.5) sec INR (0.9-1.1) VBG Lactic Acid 2.5 H (0.5-2.0) mmol/L Sodium (133-145) mmol/L Potassium (3.3-5.1) mmol/L Chloride (96-108) mmol/L Carbon Dioxide (22-30) mmol/L Anion Gap (8.0-16.0) BUN (8-23) mg/dL Creatinine (0.6-1.1) mg/dL GFR Calculation Glucose (70-105) mg/dL Calcium (8.6-10.4) mg/dL Phosphorus (2.5-4.5) mg/dL Magnesium (1.6-2.5) mg/dL Total Bilirubin (0.1-1.0) mg/dL AST (<32) U/L ALT (<40) U/L Alkaline Phosphatase (39-117) U/L CK-MB (CK-2) (<3.7) ng/mL Troponin T (<0.03) ng/mL NT-Pro-B Natriuret Pep (<125.0) pg/mL Total Protein (5.9-8.4) gm/dL Albumin (3.2-5.2) gm/dL Globulin (2.2-3.7) gm/dL Albumin/Globulin Ratio (1.0-2.3) Lipase (7-60) U/L Urine Color Urine Appearance (Clear) Urine pH (5.0-9.0) Ur Specific [place] (1.000-1.035) Urine Protein (Negative) mg/dL Urine Glucose (UA) (Negative) mg/dL Urine Ketones (Negative) mg/dL Urine Occult Blood (Negative) mg/dL Urine Nitrate (Negative) Urine Bilirubin (Negative) mg/dL Urine Urobilinogen mg/dL Ur Leukocyte Esterase (Negative) /ug Urine RBC (0-3) /hpf Urine WBC (0-4) /hpf Ur Squamous Epith Cells (0-4) /hpf Urine Bacteria (0) /hpf Urine Mucus (None) /hpf Ur Culture Indicated? Urine Opiates Screen Ur Opiates Confirm Ur Oxycodone Screen Urine Methadone Screen Ur Methadone Confirm Ur Barbiturates Screen Ur Barbiturate Confirm Ur Phencyclidine Scrn Urine PCP Confirm Ur Amphetamines Screen U Amphetamines Confirm U Benzodiazepines Scrn U Benzodiazepine Confm Urine Cocaine Screen Urine Cocaine Confirm U Cannabinoids Confirm U Marijuana (THC) Screen Ethyl Alcohol (<0.010) gm/dL ED POC Tests ED POC Tests: [facility]EE - SARS Antigen Negative Discharge Plan Patient/Caregiver Discharge Instructions Pt seen by [facility] RN/PA only: No Clinical Impression: Diverticulitis Patient Disposition: Xfer As Inpt ([facility]) Condition: Serious Discharge Date/Time: 05/15/21 23:30 Discharge Location: [facility] Inpatient
[2021-05-15] MEDS ORDERED: 0.9 % SODIUM CHLORIDE 1,000 ML IV ONE (20:24)
[2021-05-15] MEDS ORDERED: HYDROmorphone 1 MG/ML SYRINGE IV ONE (20:24)
[2021-05-15] MEDS ORDERED: ONDANSETRON 4 MG/2 ML VIAL IV ONE (20:24)
[2021-05-15] MEDS: PIPERACILLIN SODIUM/TAZOBACTAM 3.375 GM in DEXTROSE 5% IN WATER 50 ML IV SCH (20:47)
[2021-05-15 21:28] LABS: Basophils # (Auto) 0.06 K/mcL (0.00-0.20); Basophils % (Auto) 0.4 % (0.0-2.0); Eosinophils # (Auto) 0.08 K/mcL (0.00-0.70); Eosinophils % (Auto) 0.5 % (0.0-7.0); Hematocrit 35.4 % (36.0-48.0); Hemoglobin 11.2 g/dL (12.0-15.0); Lymphocytes # (Auto) 1.78 K/mcL (1.50-4.80); Lymphocytes % (Auto) 11.1 % (15.0-49.0); Mean Cell Volume 92.2 fL (80.0-100.0); Mean Corpuscular HGB Conc 31.6 g/dL (31.0-36.0); Mean Platelet Volume 10.4 fL (7.4-10.4); Monocytes # (Auto) 1.55 K/mcL (0.10-0.90); Monocytes % (Auto) 9.7 % (1.0-12.0); Neutrophils % (Auto) 78.3 % (38.0-78.0); Platelet Count 337 K/mcL (140-440); RBC 3.84 M/mcL (4.00-5.20); Red Cell Distribution Width 14.1 % (11.5-14.5)
[2021-05-15 21:34] LABS: Appearance,Urine CLEAR (Clear); Bilirubin,Urine Negative (Negative); Color,Urine YELLOW; Culture Indicated,Urine No; Glucose,Urine (UA) Negative (Negative); Ketones,Urine 5 mg/dL (Negative); Leukocyte Esterase,Urine Negative /ug (Negative); Mucus,Urine FEW /hpf; Nitrate,Urine Negative (Negative); Protein,Urine 100 mg/dL (Negative); Specific Gravity,Urine 1.009 (1.000-1.035); Urine Blood Negative (Negative); Urine RBC < 1 /hpf (0-3); Urine Squamous Epithelial Cell 1 /hpf (0-4); Urine WBC 1 /hpf (0-4); Urobilinogen,Urine Negative
[2021-05-15 21:39] LABS: Prothrombin Time 14.1 sec (11.9-14.5)
[2021-05-15 21:48] LABS: ALT/SGPT 9 U/L (<40); AST/SGOT 16 U/L (<32); Albumin 3.6 gm/dL (3.2-5.2); Albumin/Globulin Ratio 1.3 (1.0-2.3); Alcohol, Blood < 10.0 mg/dL; Alcohol,Blood < 0.010 gm/dL (<0.010); Alkaline Phosphatase 89 U/L (39-117); Bilirubin,Total 0.6 mg/dL (0.1-1.0); Blood Urea Nitrogen 40 mg/dL (8-23); Calcium 9.4 mg/dL (8.6-10.4); Carbon Dioxide 18 mmol/L (22-30); Chloride 97 mmol/L (96-108); Globulin 2.7 gm/dL (2.2-3.7); Glomerular Filtration Rate 22; Glucose 88 mg/dL (70-105)
[2021-05-15 21:48] LABS: Amphetamine Screen,Urine None detected; Barbiturate Screen,Urine None detected; Benzodiazepines Screen,Urine None detected; Cannabinoid Screen,Urine None detected; Cocaine Screen,Urine None detected; Opiate Screen,Urine None detected; Oxycodone, Urine Screen Suspect Positive; Phencyclidine Screen,Urine None detected
[2021-05-15 22:03] LABS: Phosphorous 2.4 mg/dL (2.5-4.5)
[2021-05-15 22:04] LABS: Creatine Kinase MB 1.1 ng/mL (<3.7)
--- NOTE | 2021-05-15 22:18 | EKG ---
[facility] Test Date: 2021-05-15 Pat Name: Wendy Ellsworth Department: ED Room: Gender: Female Supervisor Telephone Clerks: : 1955 Requested By: Percy Tran Order Number: [id number] Reading MD: Osman Bourgeois M.D. Measurements Intervals [place] Rate: 65 P: 50 WV: 160 QRS: -10 QRSD: 82 T: 85 QT: 436 QTc: 454 Interpretive Statements ABNORMAL ECG SINUS RHYTHM MULTIPLE ATRIAL PREMATURE COMPLEXES PROBABLE INFERIOR INFARCT, OLD CONSIDER ANTEROSEPTAL INFARCT NO PRIOR TRACING FOR COMPARISON Electronically Signed On 05-15-2021 22:18:35 PDT by Osman Bourgeois M.D. /[id number]
--- NOTE | 2021-05-15 22:44 | Internal Med History&Physical ---
HPI History of Present Illness Patient information: Note initiated : 05/15/21 at 10:35 pm Service Date, if different from initiated Date: [] Patient: Wendy Ellsworth a 66 y/o F admitted on for constipation. Chief Complaint: [] History of present illness: Ms. Ellsworth is a 66 year old F Presents the ED with continued abdominal pain nausea vomiting unable to keep her oral antibiotics down. She has a history of diverticulitis. She came in yesterday with abdominal pain and sent home with oral antibiotics. Because of continued symptoms and unable unable to keep medications in fluids down patient came back to the ED. Her white blood cell count is similar to previous day. However lactate is up to 2.5. Vital signs are stable. She says her abdominal pain is similar to yesterday although her said it was worse. No diarrhea and last bowel movement was several days ago. No chest pain coughing or shortness of breath. CT abdomen pelvis showed thickening of the transverse descending and sigmoid colon with a few diverticula. Differential infectious versus ischemic versus diverticulitis. She describes the pain is crampy in lower quadrants. She is a renal transplant patient. Sodium was mildly low 132 bicarb 18. Renal function appears to be stable. Case discussed with general surgeon given colonic findings, patient may need colonoscopy or other evaluation. Patient has an AICD, states the patient probably did not need and thought that her heart is stopped because of the potassium issue. He states the defibrillator is nonfunctional as in the battery is . Review of Systems: Pertinent positives as above. Denies headache/fever/chest pain/cough/dyspnea/diarrhea. Otherwise see above. PFSH PFSH All Active Problems Matos's palsy (Acute) Diverticulitis (Acute) Constipation (Acute) Acute diverticulitis of intestine (Acute) Kidney transplant recipient (Acute) Dadlw-zb-dybfekt kidney injury (Acute) Cardiomegaly (Acute) Elevated brain natriuretic peptide (BNP) level (Acute) Fall (Acute) Hematoma of parietal scalp (Acute) Depression with suicidal ideation (Acute) Acute UTI (urinary tract infection) (Acute) Ureterolithiasis (Acute) Compression fracture of T11 vertebra (Acute) Suicide attempt (Acute) Laceration (Acute) Acute UTI (Acute) Anemia (Acute) CRF (chronic renal failure) (Acute) Acute alteration in mental status (Acute) Right shoulder pain (Acute) Acute right-sided thoracic back pain (Acute) Hypertension (Acute) Urinary frequency (Acute) 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) Secondary hyperparathyroidism of renal origin (Chronic) Hyperlipidemia (Chronic) Glaucoma (Chronic) Macular degeneration (Chronic) Diverticulitis (Chronic) Idiopathic aseptic necrosis of femur (Chronic) Osteoporosis (Chronic) Vitamin D deficiency (Chronic) Anemia (Chronic) Essential hypertension (Chronic) Chronic kidney disease (CKD) (Chronic) Medical History Anemia Borderline hyperglycemia Chronic kidney disease (CKD) Stage 3 Dislocation, finger, metacarpophalangeal joint Diverticulitis Essential hypertension Glaucoma Hyperlipidemia Idiopathic aseptic necrosis of femur Macular degeneration 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 Patient with chronic kidney insufficiency Osteoporosis Other snf (current) drug therapy Phlebitis and thrombophlebitis Secondary hyperparathyroidism of renal origin Urinary tract infection Vitamin D deficiency Surgical History 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 Family history of AICD (automatic internal cardiac defibrillator) (~1996) History of hand surgery (~08/2015) History of hysterectomy (~1978) History of intraocular lens implant February & March 1989 History of kidney transplant (07/27/00) History of knee surgery (~04/2009) History of orthopedic surgery (04/28/96) mohamud placement in right leg 04/28/96 @ [place]; muscle relocation and skin grafts of right leg 04/29/96 @ [place] History of parathyroidectomy (11/27/95) History of surgery fistula placement February 1993 @ [place]; fistula declot; Graft placement upper right arm 10/1999 @ [place] Kidney replaced by transplant Status post biopsy of kidney (~03/2007) Family History Father Hypertension CVA (cerebral vascular accident) Colon polyps needed surgical resection/partial colectomy Prostate cancer Hyperlipidemia MEDS/ALLERGIES Home Medications and Allergies Home Medications Medication Instructions Recorded Confirmed Type omeprazole 20 mg PO DAILY 08/11/15 05/15/21 History spironolactone 50 mg PO DAILY 08/11/15 05/15/21 History latanoprost 1 gtt OS HS 11/06/15 02/18/20 History calcitonin (salmon) 200 1 spray INTRANASAL QDAY 02/05/16 12/17/19 History unit/actuation nasal spray cholecalciferol (vitamin D3) 125 5,000 unit PO QDAY cap 02/05/16 12/17/19 History mcg (5,000 unit) capsule levothyroxine 100 mcg intravenous 100 mcg PO QDAY ml 02/05/16 05/15/21 History powder for solution magnesium 400MG 1 tab PO QDAY 02/05/16 12/17/19 History rvlieeqc-jnysfhe-trxk-lutein tablet 1 tab-cap PO QDAY 02/05/16 12/17/19 History mycophenolate mofetil 250 mg 750 mg PO BID cap 02/05/16 12/17/19 History capsule tacrolimus 1 mg capsule, 3 mg PO Q12H cap 02/05/16 05/15/21 History immediate-release prednisone 5 mg tablet 5 mg PO QDAY 06/07/17 05/15/21 History pamidronate 30 mg/10 mL (3 mg/mL) 90 mg IV .COMPLEX ml 07/13/18 12/17/19 History intravenous solution losartan 50 mg tablet 50 mg PO DAILY #90 tab 09/11/18 05/15/21 Rx donepezil 10 mg PO HS 04/22/19 05/15/21 History diltiazem HCl 120 mg PO DAILY 11/30/19 05/15/21 History galantamine 4 mg PO DAILY 11/30/19 12/17/19 History metronidazole 500 mg PO Q8 #30 tab 12/04/19 12/17/19 Rx oxycodone-acetaminophen 1 each PO Q4HP PRN #42 tab 12/04/19 12/17/19 Rx promethazine 25 mg PO Q4HP PRN #20 tab MDD 4 12/04/19 12/17/19 Rx ondansetron 4 mg PO Q6H PRN #10 tab 07/20/20 Rx oxycodone-acetaminophen [Percocet] 1 tab PO Q6H PRN #20 tab 07/20/20 Rx amoxicillin-pot clavulanate 1 tab PO Q12H 10 Days #20 tab 05/14/21 05/15/21 Rx [Augmentin] glycerin (adult) 1 supp SC QDAY PRN #12 ea 05/14/21 Rx polyethylene glycol 3350 [Miralax] 17 g PO BID PRN #119 g 05/14/21 Rx amlodipine 10 mg PO DAILY 05/15/21 05/15/21 History mycophenolate mofetil 750 mg PO BID 05/15/21 05/15/21 History torsemide 20 mg PO DAILY 05/15/21 05/15/21 History Allergies Allergy/AdvReac Type Severity Reaction Status Date / Time ciprofloxacin Allergy Severe Cramping Verified 02/02/21 11:38 of the Muscles levofloxacin Allergy Severe Other Verified 02/02/21 11:38 Cephalosporins AdvReac Mild Rash Verified 02/02/21 11:38 cilastatin [From Primaxin] AdvReac Mild Rash Verified 02/02/21 11:38 droperidol [From Inapsine] AdvReac Mild Rash Verified 02/02/21 11:38 imipenem [From Primaxin] AdvReac Mild Rash Verified 02/02/21 11:38 Labetalol [From Trandate] AdvReac Mild Rash Verified 02/02/21 11:38 meperidine [From Demerol] AdvReac Mild Rash Verified 02/02/21 11:38 metronidazole [From Flagyl] AdvReac Mild Rash Verified 02/02/21 11:38 pentazocine [From Talwin] AdvReac Mild Rash Verified 02/02/21 11:38 phenobarbital AdvReac Mild Rash Verified 02/02/21 11:38 propoxyphene AdvReac Mild Rash Verified 02/02/21 11:38 [From Darvocet-N] Quinolones AdvReac Mild Muscle Pain Verified 02/02/21 11:38 tobramycin AdvReac Mild Rash Verified 02/02/21 11:38 EXAM Constitutional Vitals: Temp Pulse BP Pulse Ox 98.8 F 82 125/42 96 05/15/21 19:46 05/15/21 22:16 05/15/21 22:16 05/15/21 22:16 Exam: General: Alert, Awake, No acute Distress Eyes/N/T: EOMI, PERRL, dry MM Head/Neck: neck supple, normocephalic atraumatic CV: RRR, 2/6 SM, normal s1/s2 Pulm: Clear b/l, no wheezing/rhonchi/rales Abd: soft, tenderness to palpation mostly lower quadrants worse on left, no guarding/rigidity, +BS x4 Ext: no clubbing/cyanosis/edema Neuro: Alert, no focal deficits, moves all extremities, CN 2-12 grossly intact, symmetrical strength b/l upper/lower, sensations intact b/l upper/lower Skin: warm/dry DATA Data Completed and Pending Labs: Labs from last 24 hours 05/15/21 05/15/21 05/15/21 20:45 20:35 20:35 WBC RBC Hgb Hct MCV MCH MCHC RDW Plt Count MPV Neut % (Auto) Lymph % (Auto) [place] % (Auto) Eos % (Auto) Baso % (Auto) Lymph # (Auto) [place] # (Auto) Eos # (Auto) Baso # (Auto) Absolute Neutrophils PT INR VBG Lactic Acid 2.5 H Sodium Potassium Chloride Carbon Dioxide Anion Gap BUN Creatinine GFR Calculation Glucose Calcium Phosphorus Magnesium Total Bilirubin AST ALT Alkaline Phosphatase CK-MB (CK-2) Troponin T 0.01 NT-Pro-B Natriuret Pep Total Protein Albumin Globulin Albumin/Globulin Ratio Lipase Urine Color Urine Appearance Urine pH Ur Specific [place] Urine Protein Urine Glucose (UA) Urine Ketones Urine Occult Blood Urine Nitrate Urine Bilirubin Urine Urobilinogen Ur Leukocyte Esterase Urine RBC Urine WBC Ur Squamous Epith Cells Urine Bacteria Urine Mucus Ur Culture Indicated? Urine Opiates Screen Ur Opiates Confirm Ur Oxycodone Screen Urine Methadone Screen Ur Methadone Confirm Ur Barbiturates Screen Ur Barbiturate Confirm Ur Phencyclidine Scrn Urine PCP Confirm Ur Amphetamines Screen U Amphetamines Confirm U Benzodiazepines Scrn U Benzodiazepine Confm Urine Cocaine Screen Urine Cocaine Confirm U Cannabinoids Confirm U Marijuana (THC) Screen Ethyl Alcohol < 0.010 05/15/21 05/15/21 05/15/21 20:35 20:35 20:35 WBC RBC Hgb Hct MCV MCH MCHC RDW Plt Count MPV Neut % (Auto) Lymph % (Auto) [place] % (Auto) Eos % (Auto) Baso % (Auto) Lymph # (Auto) [place] # (Auto) Eos # (Auto) Baso # (Auto) Absolute Neutrophils PT 14.1 INR 1.0 VBG Lactic Acid Sodium 132 L Potassium 4.9 Chloride 97 Carbon Dioxide 18 L Anion Gap 17.0 H BUN 40 H Creatinine 2.2 H GFR Calculation 22 Glucose 88 Calcium 9.4 Phosphorus 2.4 L Magnesium 2.3 Total Bilirubin 0.6 AST 16 ALT 9 Alkaline Phosphatase 89 CK-MB (CK-2) 1.1 Troponin T NT-Pro-B Natriuret Pep 1967.0 H Total Protein 6.3 Albumin 3.6 Globulin 2.7 Albumin/Globulin Ratio 1.3 Lipase 9 Urine Color Urine Appearance Urine pH Ur Specific [place] Urine Protein Urine Glucose (UA) Urine Ketones Urine Occult Blood Urine Nitrate Urine Bilirubin Urine Urobilinogen Ur Leukocyte Esterase Urine RBC Urine WBC Ur Squamous Epith Cells Urine Bacteria Urine Mucus Ur Culture Indicated? Urine Opiates Screen Ur Opiates Confirm Ur Oxycodone Screen Urine Methadone Screen Ur Methadone Confirm Ur Barbiturates Screen Ur Barbiturate Confirm Ur Phencyclidine Scrn Urine PCP Confirm Ur Amphetamines Screen U Amphetamines Confirm U Benzodiazepines Scrn U Benzodiazepine Confm Urine Cocaine Screen Urine Cocaine Confirm U Cannabinoids Confirm U Marijuana (THC) Screen Ethyl Alcohol 05/15/21 05/15/21 05/15/21 20:35 20:33 20:33 WBC 16.0 H RBC 3.84 L Hgb 11.2 L Hct 35.4 L MCV 92.2 MCH 29.2 MCHC 31.6 RDW 14.1 Plt Count 337 MPV 10.4 Neut % (Auto) 78.3 H Lymph % (Auto) 11.1 L [place] % (Auto) 9.7 Eos % (Auto) 0.5 Baso % (Auto) 0.4 Lymph # (Auto) 1.78 [place] # (Auto) 1.55 H Eos # (Auto) 0.08 Baso # (Auto) 0.06 Absolute Neutrophils 12.50 H PT INR VBG Lactic Acid Sodium Potassium Chloride Carbon Dioxide Anion Gap BUN Creatinine GFR Calculation Glucose Calcium Phosphorus Magnesium Total Bilirubin AST ALT Alkaline Phosphatase CK-MB (CK-2) Troponin T NT-Pro-B Natriuret Pep Total Protein Albumin Globulin Albumin/Globulin Ratio Lipase Urine Color Yellow Urine Appearance Clear Urine pH 5.0 Ur Specific [place] 1.009 Urine Protein 100 A Urine Glucose (UA) Negative Urine Ketones 5 A Urine Occult Blood Negative Urine Nitrate Negative Urine Bilirubin Negative Urine Urobilinogen Negative Ur Leukocyte Esterase Negative Urine RBC < 1 Urine WBC 1 Ur Squamous Epith Cells 1 Urine Bacteria None Urine Mucus Few A Ur Culture Indicated? No Urine Opiates Screen None detected Ur Opiates Confirm TNP Ur Oxycodone Screen Suspect positive A Urine Methadone Screen None detected Ur Methadone Confirm TNP Ur Barbiturates Screen None detected Ur Barbiturate Confirm TNP Ur Phencyclidine Scrn None detected Urine PCP Confirm TNP Ur Amphetamines Screen None detected U Amphetamines Confirm TNP U Benzodiazepines Scrn None detected U Benzodiazepine Confm TNP Urine Cocaine Screen None detected Urine Cocaine Confirm TNP U Cannabinoids Confirm TNP U Marijuana (THC) Screen None detected Ethyl Alcohol A/P Narrative A/P Narrative: A: *Colitis, transverse to sigmoid colon: Infectious versus ischemic versus diverticulitis -elevated lactate, leukocytosis *Hyponatremia: *Metabolic acidosis: 2/2 above *Renal transplant patient with CKD IV: follow with Dr. Fortune *HTN: *Hypothyroidism: *GERD: *Memory issues: On donepezil * P: -IVF, NPO -Abx, -Dr. Woodson consult -f/u lactate -cont home BP meds but hold diuretics -cont steroids/immusuppresive meds -home meds clarify - -ppx: heparin/home PPI DNR Time Spent With Patient Time: Total time spent is greater than 50% in coordination of care (as documented) at patient's floor/unit and/or counseling patient:
[2021-05-15] MEDS ORDERED: TACROLIMUS 1 MG CAPSULE PO SCH (22:45)
[2021-05-15] MEDS ORDERED: ONDANSETRON 4 MG/2 ML VIAL IV PRN (22:47)
[2021-05-15] MEDS ORDERED: MAGNESIUM SULFATE 2 GM/50 ML BAG IV PRN (22:47)
[2021-05-15] MEDS ORDERED: POTASSIUM CHLORIDE 40 MEQ in DEXTROSE 5% IN WATER 500 ML IV PRN (22:47)
[2021-05-15] MEDS ORDERED: POLYETHYLENE GLYCOL 3350 17 GM PACKET PO PRN (22:47)
[2021-05-15] MEDS ORDERED: PROCHLORPERAZINE 10 MG/2 ML VIAL IV PRN (22:47)
[2021-05-15] MEDS ORDERED: IPRATROPIUM/ALBUTEROL 3 ML AMPUL.NEB NEB PRN (22:47)
[2021-05-15] MEDS ORDERED: POTASSIUM CHLORIDE 20 MEQ TABLET PO PRN ×2 (22:47)
[2021-05-15] MEDS ORDERED: SENNOSIDES 1 TABLET PO PRN (22:47)
[2021-05-15] MEDS ORDERED: LABETALOL 5 MG/ML ML IV PRN (22:47)
[2021-05-15] MEDS: 0.9 % SODIUM CHLORIDE 1,000 ML IV SCH (23:39)
[2021-05-16] MEDS: PIPERACILLIN SODIUM/TAZOBACTAM 3.375 GM in DEXTROSE 5% IN WATER 50 ML IV SCH ×3 (00:02→03:52)
[2021-05-16] MEDS: morphine 4 MG/ML VIAL IV PRN ×3 (00:05→23:02)
[2021-05-16] MEDS ORDERED: morphine 2 MG/ML VIAL ONE ×2 (00:07→04:02)
[2021-05-16 00:16] LABS: Hypochromasia 1+ (None Seen); Lymphocytes % 9 % (15-49); Monocytes % (Manual) 10 % (1-12); Platelet Estimate NORMAL (Normal); RBC Morphology ABNORMAL (Normal); Segmented Neutrophils % 81 % (38-78)
[2021-05-16] MEDS: ONDANSETRON 4 MG/2 ML VIAL IV PRN ×2 (03:44→09:50)
[2021-05-16] MEDS ORDERED: PROMETHAZINE 25 MG/ML VIAL IV ONE (04:14)
[2021-05-16] MEDS ORDERED: PROMETHAZINE 25 MG/ML VIAL ONE (04:18)
[2021-05-16] MEDS: 0.9 % SODIUM CHLORIDE 10 ML SYRINGE IV SCH ×3 (05:45→20:53)
[2021-05-16] MEDS ORDERED: 0.9 % SODIUM CHLORIDE 10 ML SYRINGE IV SCH (06:00)
[2021-05-16 07:26] LABS: Hematocrit 31.3 % (36.0-48.0); Hemoglobin 9.8 g/dL (12.0-15.0); Mean Cell Volume 94.3 fL (80.0-100.0); Mean Corpuscular HGB Conc 31.3 g/dL (31.0-36.0); Mean Platelet Volume 10.3 fL (7.4-10.4); Platelet Count 291 K/mcL (140-440); RBC 3.32 M/mcL (4.00-5.20); Red Cell Distribution Width 14.3 % (11.5-14.5)
--- NOTE | 2021-05-16 07:33 | Internal Med Progress Note ---
SUBJECTIVE Subjective Patient information: Note initiated : 05/16/21 at 7:29 am Service Date, if different from initiated Date: [] Patient: Wendy Ellsworth a 66 y/o F admitted on 05/15/21 for constipation. Chief Complaint: [] Interval history: History of present illness: Ms. Ellsworth is a 66 year old F Presents the ED with continued abdominal pain nausea vomiting unable to keep her oral antibiotics down. She has a history of diverticulitis. She came in yesterday with abdominal pain and sent home with oral antibiotics. Because of continued symptoms and unable unable to keep medications in fluids down patient came back to the ED. Her white blood cell count is similar to previous day. However lactate is up to 2.5. Vital signs are stable. She says her abdominal pain is similar to yesterday although her said it was worse. No diarrhea and last bowel movement was several days ago. No chest pain coughing or shortness of breath. CT abdomen pelvis showed thickening of the transverse descending and sigmoid colon with a few diverticula. Differential infectious versus ischemic versus diverticulitis. She describes the pain is crampy in lower quadrants. She is a renal transplant patient. Sodium was mildly low 132 bicarb 18. Renal function appears to be stable. Case discussed with general surgeon given colonic findings, patient may need colonoscopy or other evaluation. Patient has an AICD, states the patient probably did not need and thought that her heart is stopped because of the potassium issue. He states the defibrillator is nonfunctional as in the battery is . 05/16 Still has some nausea but no vomiting. Abdominal pain. Leukocytosis and lactate improved. Seen by general surgeon. Continue IV fluids, n.p.o., antibiotics. Review of Systems: denies headache/fever/chills/vomiting/chest pain/cough/dyspnea/diarrhea. Otherwise see above. Constitutional Vitals: Vital Signs Temp Pulse Resp BP Pulse Ox 98.3 F 79 13 155/64 100 05/16/21 04:01 05/16/21 07:01 05/16/21 07:01 05/16/21 07:01 05/16/21 07:01 Period Temp Pulse Resp BP Sys/[place] Pulse Ox Last 24 Hr 98.2 F-98.8 F 75-93 11-26 125-172/42-112 84-100 Intake and Output 07/05/16/21 05/16/21 21:59 05:59 13:59 Intake Total 1050 50 Output Total 400 Balance 1050 -350 Weight 68.039 kg 68.447 kg Intake & Output: Intake & Output 05/15/21 05/16/21 05/16/21 21:59 05:59 13:59 Intake Total 1050 50 Output Total 400 Balance 1050 -350 Weight 68.039 kg 68.447 kg Intake: IV 1050 50 Sodium Chloride 0.9% 1,000 ml @ 1000 Wide Open IV B[facility] ONE Rx#: [id number] Zosyn 3.375 gm In Dextrose 5% 50 50 in Water 50 ml @ 100 mls/hr IV Q6H [facility] Rx#:[id number] Output: Void Amount 400 Other: Urine Appearance Clear Urine Color Bright Yellow Exam: General: Alert, Awake, No acute Distress Eyes/N/T: EOMI, Head/Neck: neck supple, CV: RRR, 2/6 SM, Pulm: Clear b/l, no wheezing/rhonchi/rales Abd: soft, tenderness to palpation mostly lower quadrants worse on left, no guarding/rigidity, +BS x4 Ext: no clubbing/cyanosis/edema Neuro: Alert, no focal deficits, moves all extremities, Skin: warm/dry OBJ DATA Labs CBC & Chem 7: 05/16/21 06:04 05/15/21 20:35 Labs: Abnormal Lab Results 05/16/21 05/16/21 05/15/21 06:04 06:04 20:45 WBC 13.0 H RBC 3.32 L Hgb 9.8 L Hct 31.3 L Neut % (Auto) Lymph % (Auto) [place] # (Auto) Seg Neutrophils % Lymphocytes % Absolute Neutrophils RBC Morphology Hypochromasia VBG Lactic Acid 0.4 L 2.5 H Sodium Carbon Dioxide Anion Gap BUN Creatinine Phosphorus NT-Pro-B Natriuret Pep Urine Protein Urine Ketones Urine Mucus Ur Oxycodone Screen 05/15/21 05/15/21 05/15/21 20:35 20:35 20:35 WBC RBC Hgb Hct Neut % (Auto) Lymph % (Auto) [place] # (Auto) Seg Neutrophils % 81 H Lymphocytes % 9 L Absolute Neutrophils RBC Morphology Abnormal A Hypochromasia 1+ A VBG Lactic Acid Sodium 132 L Carbon Dioxide 18 L Anion Gap 17.0 H BUN 40 H Creatinine 2.2 H Phosphorus 2.4 L NT-Pro-B Natriuret Pep 1967.0 H Urine Protein Urine Ketones Urine Mucus Ur Oxycodone Screen 05/15/21 05/15/21 05/15/21 20:35 20:33 20:33 WBC 16.0 H RBC 3.84 L Hgb 11.2 L Hct 35.4 L Neut % (Auto) 78.3 H Lymph % (Auto) 11.1 L [place] # (Auto) 1.55 H Seg Neutrophils % Lymphocytes % Absolute Neutrophils 12.50 H RBC Morphology Hypochromasia VBG Lactic Acid Sodium Carbon Dioxide Anion Gap BUN Creatinine Phosphorus NT-Pro-B Natriuret Pep Urine Protein 100 A Urine Ketones 5 A Urine Mucus Few A Ur Oxycodone Screen Suspect positive A Meds: Medications Albuterol/Ipratropium (Ipratropium/Albuterol 3 Ml Ampul.Neb) 3 ml NEB Q4HP PRN PRN Reason: Shortness Of Breath Dexamethasone (Dexamethasone 10 Mg/Ml Vial) 1 mg IV DAILY [facility] Diltiazem HCl (Diltiazem 120 Mg Cap.Xl.24h) 120 mg PO DAILY [facility] Docusate Sodium (Docusate Sodium 100 Mg Capsule) 100 mg PO BID [facility] Heparin Sodium (Porcine) (Heparin 5,000 Unit/Ml Vial) 5,000 unit SQ Q12 [facility] Piperacillin Sod/Tazobactam (Sod 3.375 gm/ Dextrose) 50 mls @ 100 mls/hr IV ONCE BK; Protocol Last Infusion: 05/15/21 21:17 Dose: Infused Documented by: Sodium Chloride (Sodium Chloride 0.9%) 1,000 mls @ 125 mls/hr IV .Q8H [facility] Last Admin: 05/15/21 23:39 Dose: 125 mls/hr Documented by: Potassium Chloride 40 meq/ (Dextrose) 520 mls @ 130 mls/hr IV UD PRN PRN Reason: Potassium < 3 Magnesium Sulfate (Magnesium Sulfate) 2 gm in 50 mls @ 50 mls/hr IV UD PRN PRN Reason: Magnesium </= 1.6 Piperacillin Sod/Tazobactam (Sod 3.375 gm/ Dextrose) 50 mls @ 100 mls/hr IV Q6H [facility]K; Protocol Last Infusion: 05/16/21 04:00 Dose: Infused Documented by: Labetalol HCl (Labetalol 5 Mg/Ml Ml) 0 mg IV Q2HP PRN PRN Reason: Hypertension Levothyroxine Sodium (Levothyroxine 100 Mcg Vial) 75 mcg IV QDAY [facility] Morphine Sulfate (Morphine 4 Mg/Ml Vial) 0 mg IV Q3HP PRN PRN Reason: Pain Last Admin: 05/16/21 04:00 Dose: 2 mg Documented by: Mycophenolate Mofetil (Mycophenolate 250 Mg Capsule) 750 mg PO BID [facility] Ondansetron HCl (Ondansetron 4 Mg/2 Ml Vial) 4 mg IV Q6HP PRN PRN Reason: Nausea And Vomiting Last Admin: 05/16/21 03:44 Dose: 4 mg Documented by: Ondansetron HCl (Ondansetron 4 Mg/2 Ml Vial) 4 mg IV Q4HP PRN PRN Reason: Nausea And Vomiting Pantoprazole Sodium (Pantoprazole 40 Mg Vial) 40 mg IV QAMAC [facility] Polyethylene Glycol (Polyethylene Glycol 3350 17 Gm Packet) 17 gm PO DAILYP PRN PRN Reason: Constipation Potassium Chloride (Potassium Chloride 20 Meq Tablet) 40 meq PO UD PRN PRN Reason: Potssium is 3-3.5 Potassium Chloride (Potassium Chloride 20 Meq Tablet) 40 meq PO UD PRN PRN Reason: Potassium < 3 Prochlorperazine (Prochlorperazine 10 Mg/2 Ml Vial) 10 mg IV Q6HP PRN PRN Reason: Nausea And Vomiting Promethazine HCl (Promethazine 25 Mg/Ml Vial) 12.5 mg IV ONCE ONE Stop: 05/16/21 04:15 Last Admin: 05/16/21 04:26 Dose: 12.5 mg Documented by: Senna (Sennosides 1 Tablet) 2 tab PO HS [facility] Senna (Sennosides 1 Tablet) 2 tab PO DAILYP PRN PRN Reason: Constipation Sodium Chloride (0.9 % Sodium Chloride 10 Ml Syringe) 10 ml IV Q8 [facility] Last Admin: 05/16/21 05:45 Dose: Not Given Documented by: Tacrolimus (Tacrolimus 1 Mg Capsule) 3 mg PO Q12H [facility] Last Admin: 05/16/21 00:01 Dose: 3 mg Documented by: A/P Narrative A/P Narrative: A: *Colitis, transverse to sigmoid colon: Infectious versus ischemic versus diverticulitis -elevated lactate (resolved), leukocytosis (improving) *Hyponatremia: *Hypoxia with sleeping: -on *Metabolic acidosis: 2/2 above *Renal transplant patient with CKD IV: follow with Dr. Fortune *HTN: *Hypothyroidism: *GERD: *Memory issues: On donepezil * P: -IVF, NPO -Abx, -Dr. Woodson following -cont home BP meds but hold diuretics -cont steroids/immusuppresive meds -home meds clarify -f/u with pulm for sleep study -ppx: heparin/home PPI DNR Time Spent With Patient Time: Total time spent is greater than 50% in coordination of care (as documented) at patient's floor/unit and/or counseling patient:
[2021-05-16] MEDS: DILTIAZEM 120 MG CAP.XL.24H PO SCH (08:01)
[2021-05-16] MEDS: HEPARIN 5,000 UNIT/ML VIAL SQ SCH ×2 (08:01→20:51)
[2021-05-16] MEDS: DOCUSATE SODIUM 100 MG CAPSULE PO SCH ×2 (08:01→20:51)
[2021-05-16] MEDS: PANTOPRAZOLE 40 MG VIAL IV SCH (08:02)
[2021-05-16] MEDS: LEVOTHYROXINE 100 MCG VIAL IV SCH (08:02)
[2021-05-16] MEDS: 0.9 % SODIUM CHLORIDE 1,000 ML IV SCH ×2 (08:09→17:14)
--- NOTE | 2021-05-16 09:15 | General Surgery Consult Note ---
HPI Data of Consult Patient: known to practice within the last 3 years Consult date: 05/16/21 Requesting physician: Nemesio Villanueva Primary Care Provider: Turner Devine Consult Narrative Chief complaint: Abdominal pain, nausea and vomiting Reason for consult: Acute diverticulitis History of present illness: This is a pleasant 66-year-old female who has a past history of diverticulitis which she has been admitted for in the past for IV antibiotics. She was seen in the emergency department 2 days ago with acute diverticulitis on CT scan, she was treated with oral antibiotics and sent home. She was unable to tolerate p.o. antibiotics due to nausea with some emesis and represented to the emergency room. Work-up in the emergency room shows that the white blood cell count was still elevated at 15,000 and decision was made not to repeat CT scan at that time. She was admitted for IV antibiotics and I was asked to consult for possible further intervention. cc:: CC: Nemesio Villanueva Review of Systems Review of systems: All systems are reviewed, negative other than above PFSH PFSH All Active Problems Matos's palsy (Acute) Diverticulitis (Acute) Constipation (Acute) Acute diverticulitis of intestine (Acute) Kidney transplant recipient (Acute) [id number] kidney injury (Acute) Cardiomegaly (Acute) Elevated brain natriuretic peptide (BNP) level (Acute) Fall (Acute) Hematoma of parietal scalp (Acute) Depression with suicidal ideation (Acute) Acute UTI (urinary tract infection) (Acute) Ureterolithiasis (Acute) Compression fracture of T11 vertebra (Acute) Suicide attempt (Acute) Laceration (Acute) Acute UTI (Acute) Anemia (Acute) CRF (chronic renal failure) (Acute) Acute alteration in mental status (Acute) Right shoulder pain (Acute) Acute right-sided thoracic back pain (Acute) Hypertension (Acute) Urinary frequency (Acute) Other skilled nursing (current) drug therapy (Chronic) Secondary hyperparathyroidism of renal origin (Chronic) Hyperlipidemia (Chronic) Glaucoma (Chronic) Macular degeneration (Chronic) Diverticulitis (Chronic) Idiopathic aseptic necrosis of femur (Chronic) Osteoporosis (Chronic) Vitamin D deficiency (Chronic) Anemia (Chronic) Essential hypertension (Chronic) Chronic kidney disease (CKD) (Chronic) Medical History Anemia Borderline hyperglycemia Chronic kidney disease (CKD) Stage 3 Dislocation, finger, metacarpophalangeal joint Diverticulitis Essential hypertension Glaucoma Hyperlipidemia Idiopathic aseptic necrosis of femur Macular degeneration 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 Patient with chronic kidney insufficiency Osteoporosis Other skilled nursing (current) drug therapy Phlebitis and thrombophlebitis Secondary hyperparathyroidism of renal origin Urinary tract infection Vitamin D deficiency Surgical History 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 Family history of AICD (automatic internal cardiac defibrillator) (~1996) History of hand surgery (~08/2015) History of hysterectomy (~1978) History of intraocular lens implant February & March 1989 History of kidney transplant (07/27/00) History of knee surgery (~04/2009) History of orthopedic surgery (04/28/96) mohamud placement in right leg 04/28/96 @ [place] [facility]; muscle relocation and skin grafts of right leg 04/29/96 @ [facility] History of parathyroidectomy (11/27/95) History of surgery fistula placement February 1993 @ [place] [facility]; fistula declot; Graft placement upper right arm 10/1999 @ [facility] Kidney replaced by transplant Status post biopsy of kidney (~03/2007) Family History Father Hypertension CVA (cerebral vascular accident) Colon polyps needed surgical resection/partial colectomy Prostate cancer Hyperlipidemia MEDS/ALLERGIES Home Medications and Allergies Home Medications Medication Instructions Recorded Confirmed Type omeprazole 20 mg PO DAILY 08/11/15 05/16/21 History spironolactone 50 mg PO DAILY 08/11/15 05/16/21 History levothyroxine 100 mcg intravenous 100 mcg PO QDAY ml 02/05/16 05/16/21 History powder for solution magnesium 400MG 1 tab PO QDAY 02/05/16 05/16/21 History tacrolimus 1 mg capsule, 3 mg PO Q12H cap 02/05/16 05/16/21 History immediate-release prednisone 5 mg tablet 5 mg PO QDAY 06/07/17 05/16/21 History losartan 50 mg tablet 50 mg PO DAILY #90 tab 09/11/18 05/16/21 Rx donepezil 10 mg PO HS 04/22/19 05/16/21 History diltiazem HCl 120 mg PO DAILY 11/30/19 05/16/21 History amoxicillin-pot clavulanate 1 tab PO Q12H 10 Days #20 tab 05/14/21 05/15/21 Rx [Augmentin] glycerin (adult) 1 supp MT QDAY PRN #12 ea 05/14/21 05/16/21 Rx polyethylene glycol 3350 [Miralax] 17 g PO BID PRN #119 g 05/14/21 05/16/21 Rx amlodipine 10 mg PO DAILY 05/15/21 05/16/21 History mycophenolate mofetil 750 mg PO BID 05/15/21 05/16/21 History torsemide 20 mg PO DAILY 05/15/21 05/16/21 History Allergies Allergy/AdvReac Type Severity Reaction Status Date / Time ciprofloxacin Allergy Severe Cramping Verified 05/16/21 01:26 of the Muscles levofloxacin Allergy Severe Other Verified 05/16/21 01:26 Cephalosporins AdvReac Mild Rash Verified 05/16/21 01:26 cilastatin [From Primaxin] AdvReac Mild Rash Verified 05/16/21 01:26 droperidol [From Inapsine] AdvReac Mild Rash Verified 05/16/21 01:26 imipenem [From Primaxin] AdvReac Mild Rash Verified 05/16/21 01:26 Labetalol [From Trandate] AdvReac Mild Rash Verified 05/16/21 01:26 meperidine [From Demerol] AdvReac Mild Rash Verified 05/16/21 01:26 metronidazole [From Flagyl] AdvReac Mild Rash Verified 05/16/21 01:26 pentazocine [From Talwin] AdvReac Mild Rash Verified 05/16/21 01:26 phenobarbital AdvReac Mild Rash Verified 05/16/21 01:26 propoxyphene AdvReac Mild Rash Verified 05/16/21 01:26 [From Darvocet-N] Quinolones AdvReac Mild Muscle Pain Verified 05/16/21 01:26 tobramycin AdvReac Mild Rash Verified 05/16/21 01:26 Physical Examination Vital Signs Vital signs: Temp Pulse Resp BP Pulse Ox 98.3 F 87 23 H 144/62 100 05/16/21 08:01 05/16/21 09:00 05/16/21 09:00 05/16/21 09:00 05/16/21 09:00 General physical appearance General physical exam: well developed, well nourished and no distress Eyes Eye exam: PERRL and normal ocular movement ENT ENT exam: normal pinna, normal nares, normal mucosa, no hearing loss and no congestion Head Head exam IM: Present atraumatic and normocephalic Neck Neck exam: no masses, no bruits, trachea midline, no lymphadenopathy and no venous distension Cardiovascular Cardiovascular exam IM: Present normal rate and rhythm Respiratory Respiratory exam: normal expansion, normal respiratory effort, clear to percussion and clear to auscultation Abdomen Abdomen: Present soft, tender and bowel sounds; Absent masses, guarding, rigid and rebound Hernia: Present none Genitourinary Genitourinary (Female): Present normal external genitalia Rectum Rectum: Present normal sphincter tone, no hemorrhoids, no tenderness, no masses and no bleeding Integumentary Integumentary: Present no rash, no growths and no abnormal pigmentation Neurologic Neurologic: Present normal coordination and normal sensation Musculoskeletal Musculoskeletal: Present normal gait and normal posture Psychiatric Psychiatric: Present oriented to time, oriented to person, oriented to place, speech is normal and memory intact Results Labs Result diagrams: 05/16/21 06:04 05/15/21 20:35 Labs: Abnormal lab results 05/15/21 05/15/21 05/15/21 Range/Units 20:33 20:33 20:35 WBC 16.0 H (4.5-11.0) K/mcL RBC 3.84 L (4.00-5.20) M/mcL Hgb 11.2 L (12.0-15.0) g/dL Hct 35.4 L (36.0-48.0) % Neut % (Auto) 78.3 H (38.0-78.0) % Lymph % (Auto) 11.1 L (15.0-49.0) % [place] # (Auto) 1.55 H (0.10-0.90) K/mcL Seg Neutrophils % (38-78) % Lymphocytes % (15-49) % Absolute Neutrophils 12.50 H (1.80-8.00) K/mcL RBC Morphology (Normal) Hypochromasia (None Seen) VBG Lactic Acid (0.5-2.0) mmol/L Sodium (133-145) mmol/L Carbon Dioxide (22-30) mmol/L Anion Gap (8.0-16.0) BUN (8-23) mg/dL Creatinine (0.6-1.1) mg/dL Phosphorus (2.5-4.5) mg/dL NT-Pro-B Natriuret Pep (<125.0) pg/mL Procalcitonin (<0.10) ng/mL Urine Protein 100 A (Negative) mg/dL Urine Ketones 5 A (Negative) mg/dL Urine Mucus Few A (None) /hpf Ur Oxycodone Screen Suspect positive A 05/15/21 05/15/21 05/15/21 Range/Units 20:35 20:35 20:35 WBC (4.5-11.0) K/mcL RBC (4.00-5.20) M/mcL Hgb (12.0-15.0) g/dL Hct (36.0-48.0) % Neut % (Auto) (38.0-78.0) % Lymph % (Auto) (15.0-49.0) % [place] # (Auto) (0.10-0.90) K/mcL Seg Neutrophils % 81 H (38-78) % Lymphocytes % 9 L (15-49) % Absolute Neutrophils (1.80-8.00) K/mcL RBC Morphology Abnormal A (Normal) Hypochromasia 1+ A (None Seen) VBG Lactic Acid (0.5-2.0) mmol/L Sodium 132 L (133-145) mmol/L Carbon Dioxide 18 L (22-30) mmol/L Anion Gap 17.0 H (8.0-16.0) BUN 40 H (8-23) mg/dL Creatinine 2.2 H (0.6-1.1) mg/dL Phosphorus 2.4 L (2.5-4.5) mg/dL NT-Pro-B Natriuret Pep 1967.0 H (<125.0) pg/mL Procalcitonin (<0.10) ng/mL Urine Protein (Negative) mg/dL Urine Ketones (Negative) mg/dL Urine Mucus (None) /hpf Ur Oxycodone Screen 05/15/21 05/16/21 05/16/21 Range/Units 20:45 06:04 06:04 WBC 13.0 H (4.5-11.0) K/mcL RBC 3.32 L (4.00-5.20) M/mcL Hgb 9.8 L (12.0-15.0) g/dL Hct 31.3 L (36.0-48.0) % Neut % (Auto) (38.0-78.0) % Lymph % (Auto) (15.0-49.0) % [place] # (Auto) (0.10-0.90) K/mcL Seg Neutrophils % (38-78) % Lymphocytes % (15-49) % Absolute Neutrophils (1.80-8.00) K/mcL RBC Morphology (Normal) Hypochromasia (None Seen) VBG Lactic Acid 2.5 H 0.4 L (0.5-2.0) mmol/L Sodium (133-145) mmol/L Carbon Dioxide (22-30) mmol/L Anion Gap (8.0-16.0) BUN (8-23) mg/dL Creatinine (0.6-1.1) mg/dL Phosphorus (2.5-4.5) mg/dL NT-Pro-B Natriuret Pep (<125.0) pg/mL Procalcitonin (<0.10) ng/mL Urine Protein (Negative) mg/dL Urine Ketones (Negative) mg/dL Urine Mucus (None) /hpf Ur Oxycodone Screen 05/16/21 Range/Units 06:04 WBC (4.5-11.0) K/mcL RBC (4.00-5.20) M/mcL Hgb (12.0-15.0) g/dL Hct (36.0-48.0) % Neut % (Auto) (38.0-78.0) % Lymph % (Auto) (15.0-49.0) % [place] # (Auto) (0.10-0.90) K/mcL Seg Neutrophils % (38-78) % Lymphocytes % (15-49) % Absolute Neutrophils (1.80-8.00) K/mcL RBC Morphology (Normal) Hypochromasia (None Seen) VBG Lactic Acid (0.5-2.0) mmol/L Sodium (133-145) mmol/L Carbon Dioxide (22-30) mmol/L Anion Gap (8.0-16.0) BUN (8-23) mg/dL Creatinine (0.6-1.1) mg/dL Phosphorus (2.5-4.5) mg/dL NT-Pro-B Natriuret Pep (<125.0) pg/mL Procalcitonin 0.15 H (<0.10) ng/mL Urine Protein (Negative) mg/dL Urine Ketones (Negative) mg/dL Urine Mucus (None) /hpf Ur Oxycodone Screen Diabetes panel 05/15/21 Range/Units 20:35 Sodium 132 L (133-145) mmol/L Potassium 4.9 (3.3-5.1) mmol/L Chloride 97 (96-108) mmol/L Carbon Dioxide 18 L (22-30) mmol/L BUN 40 H (8-23) mg/dL Creatinine 2.2 H (0.6-1.1) mg/dL Glucose 88 (70-105) mg/dL Calcium 9.4 (8.6-10.4) mg/dL AST 16 (<32) U/L ALT 9 (<40) U/L Alkaline Phosphatase 89 (39-117) U/L Total Protein 6.3 (5.9-8.4) gm/dL Albumin 3.6 (3.2-5.2) gm/dL Calcium panel 05/15/21 05/15/21 Range/Units 20:35 20:35 Calcium 9.4 (8.6-10.4) mg/dL Phosphorus 2.4 L (2.5-4.5) mg/dL Albumin 3.6 (3.2-5.2) gm/dL Pituitary panel 05/15/21 Range/Units 20:35 Sodium 132 L (133-145) mmol/L Potassium 4.9 (3.3-5.1) mmol/L Chloride 97 (96-108) mmol/L Carbon Dioxide 18 L (22-30) mmol/L BUN 40 H (8-23) mg/dL Creatinine 2.2 H (0.6-1.1) mg/dL Glucose 88 (70-105) mg/dL Calcium 9.4 (8.6-10.4) mg/dL Adrenal panel 05/15/21 Range/Units 20:35 Sodium 132 L (133-145) mmol/L Potassium 4.9 (3.3-5.1) mmol/L Chloride 97 (96-108) mmol/L Carbon Dioxide 18 L (22-30) mmol/L BUN 40 H (8-23) mg/dL Creatinine 2.2 H (0.6-1.1) mg/dL Glucose 88 (70-105) mg/dL Calcium 9.4 (8.6-10.4) mg/dL Total Bilirubin 0.6 (0.1-1.0) mg/dL AST 16 (<32) U/L ALT 9 (<40) U/L Alkaline Phosphatase 89 (39-117) U/L Total Protein 6.3 (5.9-8.4) gm/dL Albumin 3.6 (3.2-5.2) gm/dL All other labs normal. Imaging CT scan - abdomen: other (CT reviewed by myself and independently interpreted.) A/P Assessment and plan (1) Diverticulitis: Status: Acute Comment: I had considered switching to Rocephin due to persistent elevated white count and occasional E. coli resistance to fluoroquinolones. I am not familiar with the local antibiogram at this hospital however. The patient had a test dose Rocephin and if she is not allergic to it that could be an option for future treatment for this infection or others. (2) Kidney transplant recipient: Status: Acute Comment: stable but is on immunosuppression and steroid Narrative A/P Narrative: This is a pleasant 66-year-old female who was admitted with acute diverticulitis. She is still experiencing some nausea, decreased bowel movements. Plan: Continue n.p.o., continue with IV antibiotics. Once inflammation slows down then can advance diet. Thank you very much for this consultation, I will continue to follow with you. Time Spent With Patient Time: Total time spent is greater than 50% in coordination of care (as documented) at patient's floor/unit and/or counseling patient:
[2021-05-16] MEDS: DEXAMETHASONE 10 MG/ML VIAL IV SCH (09:25)
[2021-05-16] MEDS: PIPERACILLIN SODIUM/TAZOBACTAM 2.25 GM in DEXTROSE 5% IN WATER 50 ML IV SCH ×4 (09:25→23:35)
[2021-05-16] MEDS: TACROLIMUS 1 MG CAPSULE PO SCH ×2 (09:32→20:52)
[2021-05-16] MEDS: MYCOPHENOLATE 250 MG CAPSULE PO SCH ×2 (09:32→20:51)
[2021-05-16 09:49] LABS: Band Neutrophils % 2 % (0-10); Lymphocytes % 15 % (15-49); Monocytes % (Manual) 8 % (1-12); Platelet Estimate NORMAL (Normal); RBC Morphology NORMAL (Normal); Segmented Neutrophils % 75 % (38-78)
[2021-05-16 11:57] LABS: ALT/SGPT 8 U/L (<40); AST/SGOT 13 U/L (<32); Albumin 2.8 gm/dL (3.2-5.2); Albumin/Globulin Ratio 1.1 (1.0-2.3); Alkaline Phosphatase 72 U/L (39-117); Bilirubin,Direct < 0.2 mg/dL (0-0.3); Bilirubin,Total 0.4 mg/dL (0.1-1.0); Blood Urea Nitrogen 36 mg/dL (8-23); Calcium 8.6 mg/dL (8.6-10.4); Carbon Dioxide 15 mmol/L (22-30); Chloride 103 mmol/L (96-108); Globulin 2.6 gm/dL (2.2-3.7); Glomerular Filtration Rate 22; Glucose 88 mg/dL (70-105); Lactate Dehydrogenase 183 U/L (135-225); Phosphorous 4.2 mg/dL (2.5-4.5); Triglycerides 119 mg/dL (<150); Uric Acid 6.3 mg/dL (2.5-8.0)
[2021-05-16] MEDS: SENNOSIDES 1 TABLET PO SCH (20:52)
[2021-05-17] MEDS: 0.9 % SODIUM CHLORIDE 1,000 ML IV SCH ×2 (01:33→07:41)
[2021-05-17] MEDS: 0.9 % SODIUM CHLORIDE 10 ML SYRINGE IV SCH ×3 (05:38→20:57)
[2021-05-17] MEDS: PIPERACILLIN SODIUM/TAZOBACTAM 2.25 GM in DEXTROSE 5% IN WATER 50 ML IV SCH ×4 (05:39→23:18)
[2021-05-17 06:53] LABS: Basophils # (Auto) 0.03 K/mcL (0.00-0.20); Basophils % (Auto) 0.3 % (0.0-2.0); Eosinophils # (Auto) 0.04 K/mcL (0.00-0.70); Eosinophils % (Auto) 0.4 % (0.0-7.0); Hematocrit 29.5 % (36.0-48.0); Lymphocytes # (Auto) 1.67 K/mcL (1.50-4.80); Lymphocytes % (Auto) 15.3 % (15.0-49.0); Mean Cell Volume 95.2 fL (80.0-100.0); Mean Corpuscular HGB Conc 30.5 g/dL (31.0-36.0); Mean Platelet Volume 10.3 fL (7.4-10.4); Monocytes # (Auto) 1.09 K/mcL (0.10-0.90); Platelet Count 306 K/mcL (140-440); Red Cell Distribution Width 14.1 % (11.5-14.5); WBC 10.9 K/mcL (4.5-11.0)
--- NOTE | 2021-05-17 07:20 | Internal Med Progress Note ---
SUBJECTIVE Subjective Patient information: Note initiated : 05/17/21 at 7:17 am Service Date, if different from initiated Date: [] Patient: Wendy Ellsworth a 66 y/o F admitted on 05/15/21 for constipation. Chief Complaint: [] Interval history: History of present illness: Ms. Ellsworth is a 66 year old F Presents the ED with continued abdominal pain nausea vomiting unable to keep her oral antibiotics down. She has a history of diverticulitis. She came in yesterday with abdominal pain and sent home with oral antibiotics. Because of continued symptoms and unable unable to keep medications in fluids down patient came back to the ED. Her white blood cell count is similar to previous day. However lactate is up to 2.5. Vital signs are stable. She says her abdominal pain is similar to yesterday although her said it was worse. No diarrhea and last bowel movement was several days ago. No chest pain coughing or shortness of breath. CT abdomen pelvis showed thickening of the transverse descending and sigmoid colon with a few diverticula. Differential infectious versus ischemic versus diverticulitis. She describes the pain is crampy in lower quadrants. She is a renal transplant patient. Sodium was mildly low 132 bicarb 18. Renal function appears to be stable. Case discussed with general surgeon given colonic findings, patient may need colonoscopy or other evaluation. Patient has an AICD, states the patient probably did not need and thought that her heart is stopped because of the potassium issue. He states the defibrillator is nonfunctional as in the battery is . 05/16 Still has some nausea but no vomiting. Abdominal pain. Leukocytosis and lactate improved. Seen by general surgeon. Continue IV fluids, n.p.o., antibiotics. 05/17 Has abdominal discomfort. Occasional nausea but mostly when she gets up to go the bathroom. Leukocytosis resolved. Review of Systems: denies headache/fever/chills/vomiting/chest pain/cough/dyspnea/diarrhea. Otherwise see above. Constitutional Vitals: Vital Signs Temp Pulse Resp BP Pulse Ox 99.2 F H 88 19 141/58 95 05/17/21 04:00 05/17/21 07:08 05/17/21 07:08 05/17/21 06:00 05/17/21 07:08 Period Temp Pulse Resp BP Sys/Reynoso Pulse Ox Last 24 Hr 98.3 F-99.2 F 75-88 13-23 116-152/53-70 89-100 Intake and Output 05/16/21 05/17/21 05/17/21 21:59 05:59 13:59 Intake Total 1550 1500 50 Output Total 450 800 Balance 1100 700 50 Weight 69.354 kg Intake & Output: Intake & Output 05/16/21 05/17/21 05/17/21 21:59 05:59 13:59 Intake Total 1550 1500 50 Output Total 450 800 Balance 1100 700 50 Weight 69.354 kg Intake: IV 1100 1050 50 Sodium Chloride 0.9% 1,000 ml @ 1000 1000 125 mls/hr IV .Q8H BK Rx#: [id number] Zosyn 2.25 gm In Dextrose 5% in 100 50 50 Water 50 ml @ 100 mls/hr IV Q6H BK Rx#:[id number] Oral 450 450 Output: Void Amount 450 800 Other: Urine Appearance Clear Clear Urine Color Dark Yellow Dark Yellow Urine Odor Normal Normal Stool Size Small Small Stool Color Brown Brown Stool Consistency Formed Formed # Bowel Movements 1 1 # of times incontinent of 0 0 Bowels Exam: General: Alert, Awake, No acute Distress Eyes/N/T: EOMI, Head/Neck: neck supple, CV: RRR, 2/6 SM, Pulm: Clear b/l, no wheezing/rhonchi/rales Abd: soft, tenderness to palpation mostly lower quadrants, no guarding/rigidity, +BS x4 Ext: no clubbing/cyanosis/edema Neuro: Alert, no focal deficits, moves all extremities, Skin: warm/dry OBJ DATA Labs CBC & Chem 7: 05/17/21 05:40 05/17/21 05:40 Labs: Abnormal Lab Results 05/17/21 05/16/21 05/16/21 05:40 06:04 06:04 WBC RBC 3.10 L Hgb 9.0 L Hct 29.5 L MCHC 30.5 L Neut % (Auto) Lymph % (Auto) [place] # (Auto) 1.09 H Seg Neutrophils % Lymphocytes % Absolute Neutrophils 8.06 H RBC Morphology Hypochromasia VBG Lactic Acid 0.4 L Sodium Carbon Dioxide Anion Gap BUN Creatinine Phosphorus NT-Pro-B Natriuret Pep Total Protein Albumin Procalcitonin 0.15 H Urine Protein Urine Ketones Urine Mucus Ur Oxycodone Screen 05/16/21 05/16/21 05/15/21 06:04 06:04 20:45 WBC 13.0 H RBC 3.32 L Hgb 9.8 L Hct 31.3 L MCHC Neut % (Auto) Lymph % (Auto) [place] # (Auto) Seg Neutrophils % Lymphocytes % Absolute Neutrophils RBC Morphology Hypochromasia VBG Lactic Acid 2.5 H Sodium Carbon Dioxide 15 L Anion Gap BUN 36 H Creatinine 2.2 H Phosphorus NT-Pro-B Natriuret Pep Total Protein 5.4 L Albumin 2.8 L Procalcitonin Urine Protein Urine Ketones Urine Mucus Ur Oxycodone Screen 05/15/21 05/15/21 05/15/21 20:35 20:35 20:35 WBC RBC Hgb Hct MCHC Neut % (Auto) Lymph % (Auto) [place] # (Auto) Seg Neutrophils % 81 H Lymphocytes % 9 L Absolute Neutrophils RBC Morphology Abnormal A Hypochromasia 1+ A VBG Lactic Acid Sodium 132 L Carbon Dioxide 18 L Anion Gap 17.0 H BUN 40 H Creatinine 2.2 H Phosphorus 2.4 L NT-Pro-B Natriuret Pep 1967.0 H Total Protein Albumin Procalcitonin Urine Protein Urine Ketones Urine Mucus Ur Oxycodone Screen 05/15/21 05/15/21 05/15/21 20:35 20:33 20:33 WBC 16.0 H RBC 3.84 L Hgb 11.2 L Hct 35.4 L MCHC Neut % (Auto) 78.3 H Lymph % (Auto) 11.1 L [place] # (Auto) 1.55 H Seg Neutrophils % Lymphocytes % Absolute Neutrophils 12.50 H RBC Morphology Hypochromasia VBG Lactic Acid Sodium Carbon Dioxide Anion Gap BUN Creatinine Phosphorus NT-Pro-B Natriuret Pep Total Protein Albumin Procalcitonin Urine Protein 100 A Urine Ketones 5 A Urine Mucus Few A Ur Oxycodone Screen Suspect positive A Meds: Medications Albuterol/Ipratropium (Ipratropium/Albuterol 3 Ml Ampul.Neb) 3 ml NEB Q4HP PRN PRN Reason: Shortness Of Breath Dexamethasone (Dexamethasone 10 Mg/Ml Vial) 1 mg IV DAILY BK Last Admin: 05/16/21 09:25 Dose: 1 mg Documented by: Diltiazem HCl (Diltiazem 120 Mg Cap.Xl.24h) 120 mg PO DAILY PENDING SALE TO [facility] Last Admin: 05/16/21 08:01 Dose: 120 mg Documented by: Docusate Sodium (Docusate Sodium 100 Mg Capsule) 100 mg PO BID PENDING SALE TO [facility] Last Admin: 05/16/21 20:51 Dose: 100 mg Documented by: Heparin Sodium (Porcine) (Heparin 5,000 Unit/Ml Vial) 5,000 unit SQ Q12 PENDING SALE TO [facility] Last Admin: 05/16/21 20:51 Dose: 5,000 unit Documented by: Sodium Chloride (Sodium Chloride 0.9%) 1,000 mls @ 125 mls/hr IV .Q8H PENDING SALE TO [facility] Last Admin: 05/17/21 01:33 Dose: 125 mls/hr Documented by: Potassium Chloride 40 meq/ (Dextrose) 520 mls @ 130 mls/hr IV UD PRN PRN Reason: Potassium < 3 Magnesium Sulfate (Magnesium Sulfate) 2 gm in 50 mls @ 50 mls/hr IV UD PRN PRN Reason: Magnesium </= 1.6 Piperacillin Sod/Tazobactam (Sod 2.25 gm/ Dextrose) 50 mls @ 100 mls/hr IV Q6H PENDING SALE TO [facility] Last Infusion: 05/17/21 06:15 Dose: Infused Documented by: Labetalol HCl (Labetalol 5 Mg/Ml Ml) 0 mg IV Q2HP PRN PRN Reason: Hypertension Levothyroxine Sodium (Levothyroxine 100 Mcg Vial) 75 mcg IV ACB PENDING SALE TO [facility] Last Admin: 05/16/21 08:02 Dose: 75 mcg Documented by: Morphine Sulfate (Morphine 4 Mg/Ml Vial) 0 mg IV Q3HP PRN PRN Reason: Pain Last Admin: 05/16/21 23:02 Dose: 2 mg Documented by: Mycophenolate Mofetil (Mycophenolate 250 Mg Capsule) 750 mg PO BID PENDING SALE TO [facility] Last Admin: 05/16/21 20:51 Dose: 750 mg Documented by: Ondansetron HCl (Ondansetron 4 Mg/2 Ml Vial) 4 mg IV Q6HP PRN PRN Reason: Nausea And Vomiting Last Admin: 05/16/21 09:50 Dose: 4 mg Documented by: Ondansetron HCl (Ondansetron 4 Mg/2 Ml Vial) 4 mg IV Q4HP PRN PRN Reason: Nausea And Vomiting Pantoprazole Sodium (Pantoprazole 40 Mg Vial) 40 mg IV QAMAC PENDING SALE TO [facility] Last Admin: 05/16/21 08:02 Dose: 40 mg Documented by: Polyethylene Glycol (Polyethylene Glycol 3350 17 Gm Packet) 17 gm PO DAILYP PRN PRN Reason: Constipation Potassium Chloride (Potassium Chloride 20 Meq Tablet) 40 meq PO UD PRN PRN Reason: Potssium is 3-3.5 Potassium Chloride (Potassium Chloride 20 Meq Tablet) 40 meq PO UD PRN PRN Reason: Potassium < 3 Prochlorperazine (Prochlorperazine 10 Mg/2 Ml Vial) 10 mg IV Q6HP PRN PRN Reason: Nausea And Vomiting Senna (Sennosides 1 Tablet) 2 tab PO HS PENDING SALE TO [facility] Last Admin: 05/16/21 20:52 Dose: 2 tab Documented by: Senna (Sennosides 1 Tablet) 2 tab PO DAILYP PRN PRN Reason: Constipation Sodium Chloride (0.9 % Sodium Chloride 10 Ml Syringe) 10 ml IV Q8 PENDING SALE TO [facility] Last Admin: 05/17/21 05:38 Dose: Not Given Documented by: Tacrolimus (Tacrolimus 1 Mg Capsule) 3 mg PO BID PENDING SALE TO [facility] Last Admin: 05/16/21 20:52 Dose: 3 mg Documented by: A/P Narrative A/P Narrative: A: *Colitis, transverse to sigmoid colon: Infectious versus ischemic versus diverticulitis -elevated lactate (resolved), leukocytosis (resolved) *Hyponatremia: resovled *Hypoxia with sleeping: - *Metabolic acidosis: 2/2 above *Renal transplant patient with CKD IV: follow with Dr. Fortune *Anemia,chronic: *HTN: *Hypothyroidism: *GERD: *Memory issues: On donepezil * P: -IVF, NPO -Abx, -Dr. Woodson following -cont home BP meds but hold diuretics -cont steroids/immusuppresive meds -f/u with pulm for sleep study -ppx: heparin/home PPI DNR Time Spent With Patient Time: Total time spent is greater than 50% in coordination of care (as d ocumented) at patient's floor/unit and/or counseling patient:
[2021-05-17 07:26] LABS: ALT/SGPT 7 U/L (<40); AST/SGOT 14 U/L (<32); Albumin 2.9 gm/dL (3.2-5.2); Albumin/Globulin Ratio 1.3 (1.0-2.3); Alkaline Phosphatase 61 U/L (39-117); Bilirubin,Direct < 0.2 mg/dL (0-0.3); Bilirubin,Total 0.3 mg/dL (0.1-1.0); Blood Urea Nitrogen 32 mg/dL (8-23); Calcium 8.5 mg/dL (8.6-10.4); Carbon Dioxide 14 mmol/L (22-30); Chloride 104 mmol/L (96-108); Globulin 2.3 gm/dL (2.2-3.7); Glomerular Filtration Rate 22; Glucose 66 mg/dL (70-105); Lactate Dehydrogenase 183 U/L (135-225); Phosphorous 4.7 mg/dL (2.5-4.5); Triglycerides 138 mg/dL (<150); Uric Acid 5.9 mg/dL (2.5-8.0)
[2021-05-17] MEDS: PANTOPRAZOLE 40 MG VIAL IV SCH (07:55)
[2021-05-17] MEDS: LEVOTHYROXINE 100 MCG VIAL IV SCH (07:55)
[2021-05-17] MEDS: DEXAMETHASONE 10 MG/ML VIAL IV SCH (09:10)
[2021-05-17] MEDS: HEPARIN 5,000 UNIT/ML VIAL SQ SCH ×2 (09:10→20:57)
[2021-05-17] MEDS: TACROLIMUS 1 MG CAPSULE PO SCH ×2 (09:10→20:59)
[2021-05-17] MEDS: DILTIAZEM 120 MG CAP.XL.24H PO SCH (09:12)
[2021-05-17] MEDS: DOCUSATE SODIUM 100 MG CAPSULE PO SCH ×2 (09:12→20:57)
[2021-05-17] MEDS: MYCOPHENOLATE 250 MG CAPSULE PO SCH ×2 (09:21→20:58)
[2021-05-17] MEDS: morphine 4 MG/ML VIAL IV PRN (09:48)
[2021-05-17] MEDS ORDERED: SODIUM BICARBONATE VIAL 150 MEQ in DEXTROSE 5% IN WATER 850 ML IV SCH (12:00)
--- NOTE | 2021-05-17 14:16 | General Surgery Progress Note ---
SUBJECTIVE Subjective Patient information: Note initiated : 05/17/21 at 2:14 pm Service Date, if different from initiated Date: [] Patient: Wendy Ellsworth 66 y/o F admitted on 05/15/21 for constipation. Chief Complaint: [] Interval history: Patient feels somewhat better today, still having some left- sided pain which is more prominent in the left upper quadrant rather than left lower quadrant. She has no nausea vomiting. She is passing flatus. Constitutional Vitals: Vital Signs Temp Pulse Resp BP Pulse Ox 98.5 F 85 19 147/67 93 05/17/21 12:01 05/17/21 13:02 05/17/21 13:02 05/17/21 12:01 05/17/21 13:02 Period Temp Pulse Resp BP Sys/Reynoso Pulse Ox Last 24 Hr 97.9 F-99.2 F 73-88 14-23 116-150/57-70 89-98 Intake and Output 05/17/21 05/17/21 05/17/21 05:59 13:59 21:59 Intake Total 1500 985 Output Total 800 200 Balance 700 785 Weight 152 lb 14.4 oz Patient Weight 05/18/21 05:59 Weight 152 lb 14.4 oz Intake & Output: Intake & Output 05/17/21 05/17/21 05/17/21 05:59 13:59 21:59 Intake Total 1500 985 Output Total 800 200 Balance 700 785 Weight 152 lb 14.4 oz Intake: IV 1050 865 Sodium Chloride 0.9% 1,000 ml @ 1000 765 125 mls/hr IV .Q8H BK Rx#: [id number] Zosyn 2.25 gm In Dextrose 5% in 50 100 Water 50 ml @ 100 mls/hr IV Q6H BK Rx#:[id number] Oral 450 120 Output: Void Amount 800 200 Other: Urine Appearance Clear Urine Color Dark Yellow Urine Odor Normal Stool Size Small Stool Color Brown Stool Consistency Formed # Bowel Movements 1 # of times incontinent of 0 Bowels General appearance: cooperative and no acute distress GI/Abdominal GI/Abdominal exam: Present soft and tenderness (Mild tender to palpation on the left side, no rebound no guarding.); Absent distended A/P Narrative A/P Narrative: Left-sided diverticulitis, improvement in symptoms, no further nausea vomiting, improved white blood cell count. Recommendations: Can advance diet as tolerated, no need for surgical intervention at this time. Time Spent With Patient Time: Total time spent is greater than 50% in coordination of care (as documented) at patient's floor/unit and/or counseling patient:
[2021-05-17] MEDS: SENNOSIDES 1 TABLET PO SCH (20:57)
[2021-05-18] MEDS: 0.9 % SODIUM CHLORIDE 10 ML SYRINGE IV SCH ×3 (05:51→23:50)
[2021-05-18] MEDS: PIPERACILLIN SODIUM/TAZOBACTAM 2.25 GM in DEXTROSE 5% IN WATER 50 ML IV SCH ×4 (05:51→23:49)
[2021-05-18] MEDS: LEVOTHYROXINE 100 MCG VIAL IV SCH (07:45)
[2021-05-18] MEDS: PANTOPRAZOLE 40 MG VIAL IV SCH (07:45)
--- NOTE | 2021-05-18 07:58 | Internal Med Progress Note ---
SUBJECTIVE Subjective Patient information: Note initiated : 05/18/21 at 7:57 am Service Date, if different from initiated Date: [] Patient: Wendy Ellsworth a 66 y/o F admitted on 05/15/21 for constipation. Chief Complaint: [] Interval history: History of present illness: Ms. Ellsworth is a 66 year old F Presents the ED with continued abdominal pain nausea vomiting unable to keep her oral antibiotics down. She has a history of diverticulitis. She came in yesterday with abdominal pain and sent home with oral antibiotics. Because of continued symptoms and unable unable to keep medications in fluids down patient came back to the ED. Her white blood cell count is similar to previous day. However lactate is up to 2.5. Vital signs are stable. She says her abdominal pain is similar to yesterday although her said it was worse. No diarrhea and last bowel movement was several days ago. No chest pain coughing or shortness of breath. CT abdomen pelvis showed thickening of the transverse descending and sigmoid colon with a few diverticula. Differential infectious versus ischemic versus diverticulitis. She describes the pain is crampy in lower quadrants. She is a renal transplant patient. Sodium was mildly low 132 bicarb 18. Renal function appears to be stable. Case discussed with general surgeon given colonic findings, patient may need colonoscopy or other evaluation. Patient has an AICD, states the patient probably did not need and thought that her heart is stopped because of the potassium issue. He states the defibrillator is nonfunctional as in the battery is . 05/16 Still has some nausea but no vomiting. Abdominal pain. Leukocytosis and lactate improved. Seen by general surgeon. Continue IV fluids, n.p.o., antibiotics. 05/17 Has abdominal discomfort. Occasional nausea but mostly when she gets up to go the bathroom. Leukocytosis resolved. 05/18 Patient feeling little better. Abdominal pain improving. Starting on clear liquids. No new complaints. Review of Systems: denies headache/fever/chills/vomiting/chest pain/cough/dyspnea/diarrhea. Otherwise see above. Constitutional Vitals: Vital Signs Temp Pulse Resp BP Pulse Ox 98.4 F 73 12 139/82 94 05/18/21 00:00 05/18/21 07:06 05/18/21 07:06 05/18/21 06:01 05/18/21 07:06 Period Temp Pulse Resp BP Sys/Reynoso Pulse Ox Last 24 Hr 97.4 F-98.7 F 72-101 12-27 118-149/62-82 89-98 Intake and Output 05/17/21 05/18/21 05/18/21 21:59 05:59 13:59 Intake Total 50 1050 50 Output Total 550 600 Balance -500 450 50 Weight 70.125 kg Intake & Output: Intake & Output 05/17/21 05/18/21 05/18/21 21:59 05:59 13:59 Intake Total 50 1050 50 Output Total 550 600 Balance -500 450 50 Weight 70.125 kg Intake: IV 50 1050 50 Zosyn 2.25 gm In Dextrose 5% in 50 50 50 Water 50 ml @ 100 mls/hr IV Q6H BK Rx#:[id number] Sodium Bicarbonate Vial 150 Meq 1000 In Dextrose 5% in Water 850 ml @ 84 mls/hr IV Q20H BK Rx#: [id number] Output: Void Amount 550 600 Other: Urine Appearance Clear Clear Urine Color Pale Urine Odor Normal Exam: General: Alert, Awake, No acute Distress Eyes/N/T: EOMI, Head/Neck: neck supple, CV: RRR, 2/6 SM, Pulm: Clear b/l, no wheezing/rhonchi/rales Abd: soft, tenderness to palpation mostly lower quadrants and L>R improved, no guarding/rigidity, +BS x4 Ext: no clubbing/cyanosis/edema Neuro: Alert, no focal deficits, moves all extremities, Skin: warm/dry OBJ DATA Labs CBC & Chem 7: 05/17/21 05:40 05/17/21 05:40 Labs: Abnormal Lab Results 05/17/21 05/17/21 05/16/21 05:40 05:40 06:04 WBC RBC 3.10 L Hgb 9.0 L Hct 29.5 L MCHC 30.5 L Neut % (Auto) Lymph % (Auto) Union # (Auto) 1.09 H Seg Neutrophils % Lymphocytes % Absolute Neutrophils 8.06 H RBC Morphology Hypochromasia VBG Lactic Acid Sodium Carbon Dioxide 14 L Anion Gap 17.0 H BUN 32 H Creatinine 2.2 H Glucose 66 L Calcium 8.5 L Phosphorus 4.7 H NT-Pro-B Natriuret Pep Total Protein 5.2 L Albumin 2.9 L Procalcitonin 0.15 H Urine Protein Urine Ketones Urine Mucus Ur Oxycodone Screen 05/16/21 05/16/21 05/16/21 06:04 06:04 06:04 WBC 13.0 H RBC 3.32 L Hgb 9.8 L Hct 31.3 L MCHC Neut % (Auto) Lymph % (Auto) Union # (Auto) Seg Neutrophils % Lymphocytes % Absolute Neutrophils RBC Morphology Hypochromasia VBG Lactic Acid 0.4 L Sodium Carbon Dioxide 15 L Anion Gap BUN 36 H Creatinine 2.2 H Glucose Calcium Phosphorus NT-Pro-B Natriuret Pep Total Protein 5.4 L Albumin 2.8 L Procalcitonin Urine Protein Urine Ketones Urine Mucus Ur Oxycodone Screen 05/15/21 05/15/21 05/15/21 20:45 20:35 20:35 WBC RBC Hgb Hct MCHC Neut % (Auto) Lymph % (Auto) Union # (Auto) Seg Neutrophils % 81 H Lymphocytes % 9 L Absolute Neutrophils RBC Morphology Abnormal A Hypochromasia 1+ A VBG Lactic Acid 2.5 H Sodium Carbon Dioxide Anion Gap BUN Creatinine Glucose Calcium Phosphorus 2.4 L NT-Pro-B Natriuret Pep 1967.0 H Total Protein Albumin Procalcitonin Urine Protein Urine Ketones Urine Mucus Ur Oxycodone Screen 05/15/21 05/15/21 05/15/21 20:35 20:35 20:33 WBC 16.0 H RBC 3.84 L Hgb 11.2 L Hct 35.4 L MCHC Neut % (Auto) 78.3 H Lymph % (Auto) 11.1 L Union # (Auto) 1.55 H Seg Neutrophils % Lymphocytes % Absolute Neutrophils 12.50 H RBC Morphology Hypochromasia VBG Lactic Acid Sodium 132 L Carbon Dioxide 18 L Anion Gap 17.0 H BUN 40 H Creatinine 2.2 H Glucose Calcium Phosphorus NT-Pro-B Natriuret Pep Total Protein Albumin Procalcitonin Urine Protein Urine Ketones Urine Mucus Ur Oxycodone Screen Suspect positive A 05/15/21 20:33 WBC RBC Hgb Hct MCHC Neut % (Auto) Lymph % (Auto) Union # (Auto) Seg Neutrophils % Lymphocytes % Absolute Neutrophils RBC Morphology Hypochromasia VBG Lactic Acid Sodium Carbon Dioxide Anion Gap BUN Creatinine Glucose Calcium Phosphorus NT-Pro-B Natriuret Pep Total Protein Albumin Procalcitonin Urine Protein 100 A Urine Ketones 5 A Urine Mucus Few A Ur Oxycodone Screen Meds: Medications Albuterol/Ipratropium (Ipratropium/Albuterol 3 Ml Ampul.Neb) 3 ml NEB Q4HP PRN PRN Reason: Shortness Of Breath Dexamethasone (Dexamethasone 10 Mg/Ml Vial) 1 mg IV DAILY [facility] Last Admin: 05/17/21 09:10 Dose: 1 mg Documented by: Diltiazem HCl (Diltiazem 120 Mg Cap.Xl.24h) 120 mg PO DAILY [facility] Last Admin: 05/17/21 09:12 Dose: 120 mg Documented by: Docusate Sodium (Docusate Sodium 100 Mg Capsule) 100 mg PO BID [facility] Last Admin: 05/17/21 20:57 Dose: 100 mg Documented by: Heparin Sodium (Porcine) (Heparin 5,000 Unit/Ml Vial) 5,000 unit SQ Q12 [facility] Last Admin: 05/17/21 20:57 Dose: 5,000 unit Documented by: Potassium Chloride 40 meq/ (Dextrose) 520 mls @ 130 mls/hr IV UD PRN PRN Reason: Potassium < 3 Magnesium Sulfate (Magnesium Sulfate) 2 gm in 50 mls @ 50 mls/hr IV UD PRN PRN Reason: Magnesium </= 1.6 Piperacillin Sod/Tazobactam (Sod 2.25 gm/ Dextrose) 50 mls @ 100 mls/hr IV Q6H [facility] Last Infusion: 05/18/21 06:27 Dose: Infused Documented by: Labetalol HCl (Labetalol 5 Mg/Ml Ml) 0 mg IV Q2HP PRN PRN Reason: Hypertension Levothyroxine Sodium (Levothyroxine 100 Mcg Vial) 75 mcg IV ACB [facility] Last Admin: 05/17/21 07:55 Dose: 75 mcg Documented by: Morphine Sulfate (Morphine 4 Mg/Ml Vial) 0 mg IV Q3HP PRN PRN Reason: Pain Last Admin: 05/17/21 09:48 Dose: 2 mg Documented by: Mycophenolate Mofetil (Mycophenolate 250 Mg Capsule) 750 mg PO BID [facility] Last Admin: 05/17/21 20:58 Dose: 750 mg Documented by: Ondansetron HCl (Ondansetron 4 Mg/2 Ml Vial) 4 mg IV Q4HP PRN PRN Reason: Nausea And Vomiting Pantoprazole Sodium (Pantoprazole 40 Mg Vial) 40 mg IV QAMAC [facility] Last Admin: 05/17/21 07:55 Dose: 40 mg Documented by: Polyethylene Glycol (Polyethylene Glycol 3350 17 Gm Packet) 17 gm PO DAILYP PRN PRN Reason: Constipation Potassium Chloride (Potassium Chloride 20 Meq Tablet) 40 meq PO UD PRN PRN Reason: Potssium is 3-3.5 Potassium Chloride (Potassium Chloride 20 Meq Tablet) 40 meq PO UD PRN PRN Reason: Potassium < 3 Prochlorperazine (Prochlorperazine 10 Mg/2 Ml Vial) 10 mg IV Q6HP PRN PRN Reason: Nausea And Vomiting Senna (Sennosides 1 Tablet) 2 tab PO HS [facility] Last Admin: 05/17/21 20:57 Dose: 2 tab Documented by: Senna (Sennosides 1 Tablet) 2 tab PO DAILYP PRN PRN Reason: Constipation Sodium Chloride (0.9 % Sodium Chloride 10 Ml Syringe) 10 ml IV Q8 [facility] Last Admin: 05/18/21 05:51 Dose: 10 ml Documented by: Tacrolimus (Tacrolimus 1 Mg Capsule) 3 mg PO BID [facility] Last Admin: 05/17/21 20:59 Dose: 3 mg Documented by: A/P Narrative A/P Narrative: A: *Colitis, transverse to sigmoid colon: Infectious versus ischemic versus diverticulitis -elevated lactate (resolved), leukocytosis (resolved) *Hyponatremia: resovled *Hypoxia with sleeping: - *Renal transplant patient with CKD IV: follow with Dr. Fortune *Metabolic acidosis: 2/2 above *Anemia,chronic: *HTN: *Hypothyroidism: *GERD: *Memory issues: On donepezil * P: -IVF d/c, clears advance as tolerate -Abx, -Dr. Woodson following -cont home BP meds but hold diuretics -cont steroids/immusuppresive meds -f/u with pulm for sleep study -ppx: heparin/home PPI DNR Time Spent With Patient Time: Total time spent is greater than 50% in coordination of care (as document ed) at patient's floor/unit and/or counseling patient:
[2021-05-18] MEDS ORDERED: SODIUM BICARBONATE 650 MG TABLET PO SCH (09:00)
[2021-05-18] MEDS: DEXAMETHASONE 10 MG/ML VIAL IV SCH (10:53)
[2021-05-18] MEDS: HEPARIN 5,000 UNIT/ML VIAL SQ SCH ×2 (10:53→21:24)
[2021-05-18] MEDS: DOCUSATE SODIUM 100 MG CAPSULE PO SCH ×2 (10:54→21:24)
[2021-05-18] MEDS: DILTIAZEM 120 MG CAP.XL.24H PO SCH (10:54)
[2021-05-18] MEDS: MYCOPHENOLATE 250 MG CAPSULE PO SCH ×2 (10:54→21:22)
[2021-05-18] MEDS: TACROLIMUS 1 MG CAPSULE PO SCH ×2 (10:57→21:22)
[2021-05-18] MEDS ORDERED: MAGNESIUM SULFATE 2 GM/50 ML BAG IV PRN (10:59)
[2021-05-18] MEDS ORDERED: ONDANSETRON 4 MG/2 ML VIAL IV PRN (10:59)
[2021-05-18] MEDS ORDERED: morphine 4 MG/ML VIAL IV PRN (10:59)
[2021-05-18] MEDS ORDERED: PROCHLORPERAZINE 10 MG/2 ML VIAL IV PRN (10:59)
[2021-05-18] MEDS ORDERED: SENNOSIDES 1 TABLET PO PRN (10:59)
[2021-05-18] MEDS ORDERED: POTASSIUM CHLORIDE 40 MEQ in DEXTROSE 5% IN WATER 500 ML IV PRN (10:59)
[2021-05-18] MEDS ORDERED: POTASSIUM CHLORIDE 20 MEQ TABLET PO PRN ×2 (10:59)
[2021-05-18] MEDS ORDERED: LABETALOL 5 MG/ML ML IV PRN (10:59)
[2021-05-18] MEDS ORDERED: IPRATROPIUM/ALBUTEROL 3 ML AMPUL.NEB NEB PRN (10:59)
[2021-05-18] MEDS ORDERED: POLYETHYLENE GLYCOL 3350 17 GM PACKET PO PRN (10:59)
--- NOTE | 2021-05-18 11:40 | Discharge Summary ---
Discharge Provider Provider Patient information: Note initiated : 05/18/21 at 11:37 am Service Date, if different from initiated Date: [] Patient: Wendy Ellsworth 66 y/o F admitted on 05/15/21 for constipation. Chief Complaint: [] Date of admission: 05/15/21 23:18 Discharge date: 05/19/21 Primary care physician: Turner Devine Consults: 05/15/21 Consult to Physician [CONS] Stat Comment: Consulting Provider: Nemesio Villanueva Reason For Exam: Physician to Consult 05/15/21 22:50 Consult to Physician [CONS] Routine Comment: Consulting Provider: Erik Woodson Reason For Exam: Physician to Consult Discharge Meds Discharge Medications Home Medications omeprazole 20 mg PO DAILY 08/11/15 [History Confirmed 05/16/21 Last Taken 05/15/21] levothyroxine 100 mcg intravenous powder for solution 100 mcg PO QDAY ml 02/05/16 [History Confirmed 05/16/21 Last Taken 05/15/21] magnesium 400MG 1 tab PO QDAY 02/05/16 [History Confirmed 05/16/21 Last Taken 05/15/21] tacrolimus 1 mg capsule, immediate-release 3 mg PO Q12H cap 02/05/16 [History Confirmed 05/16/21 Last Taken 05/15/21] prednisone 5 mg tablet 5 mg PO QDAY 06/07/17 [History Confirmed 05/16/21 Last Taken 05/15/21] losartan 50 mg tablet 50 mg PO DAILY #90 tab 09/11/18 [Rx Confirmed 05/16/21 Last Taken 05/15/21] donepezil 10 mg PO HS 04/22/19 [History Confirmed 05/16/21 Last Taken 05/15/21] diltiazem HCl 120 mg PO DAILY 11/30/19 [History Confirmed 05/16/21 Last Taken 05/15/21] glycerin (adult) 1 supp RI QDAY PRN #12 ea 05/14/21 [Rx Confirmed 05/16/21 Last Taken 05/14/21] polyethylene glycol 3350 [Miralax] 17 g PO BID PRN #119 g 05/14/21 [Rx Confirmed 05/16/21 Last Taken 05/15/21] amlodipine 10 mg PO DAILY 05/15/21 [History Confirmed 05/16/21 Last Taken 05/15/21] mycophenolate mofetil 750 mg PO BID 05/15/21 [History Confirmed 05/16/21 Last T aken 05/15/21] torsemide 20 mg PO DAILY 05/15/21 [History Confirmed 05/16/21 Last Taken 05/15/21] amoxicillin-pot clavulanate [Augmentin] 1 tab PO Q12H #10 tab 05/18/21 [Rx Last Taken Unknown] COURSE Hospital Course Hospital course: Interval history: History of present illness: Ms. Ellsworth is a 66 year old F Presents the ED with continued abdominal pain nausea vomiting unable to keep her oral antibiotics down. She has a history of diverticulitis. She came in yesterday with abdominal pain and sent home with oral antibiotics. Because of continued symptoms and unable unable to keep medications in fluids down patient came back to the ED. Her white blood cell count is similar to previous day. However lactate is up to 2.5. Vital signs are stable. She says her abdominal pain is similar to yesterday although her said it was worse. No diarrhea and last bowel movement was several days ago. No chest pain coughing or shortness of breath. CT abdomen pelvis showed thickening of the transverse descending and sigmoid colon with a few diverticula. Differential infectious versus ischemic versus d iverticulitis. She describes the pain is crampy in lower quadrants. She is a renal transplant patient. Sodium was mildly low 132 bicarb 18. Renal function appears to be stable. Case discussed with general surgeon given colonic findings, patient may need colonoscopy or other evaluation. Patient has an AICD, states the patient probably did not need and thought that her heart is stopped because of the potassium issue. He states the defibrillator is nonfunctional as in the battery is . 05/16 Still has some nausea but no vomiting. Abdominal pain. Leukocytosis and lactate improved. Seen by general surgeon. Continue IV fluids, n.p.o., antibiotics. 05/17 Has abdominal discomfort. Occasional nausea but mostly when she gets up to go the bathroom. Leukocytosis resolved. 05/18 Patient feeling little better. Abdominal pain improving. Starting on clear liquids. No new complaints. 05/19 Patient feeling better again. Excited to go home. *stopped Aldactone for hyperkalemia A: *Colitis, transverse to sigmoid colon: Infectious versus ischemic versus diverticulitis -elevated lactate (resolved), leukocytosis (resolved) *Hyponatremia: resovled *Hypoxia with sleeping: - *Renal transplant patient with CKD IV: follow with Dr. Fortune *Metabolic acidosis: 2/2 above *Anemia,chronic: *HTN: *Hypothyroidism: *GERD: *Memory issues: On donepezil Discharge diagnosis: Diverticulitis hyponatremia suspected obstructive sleep apnea Secondary discharge diagnosis: Renal transplant patient metabolic acidosis ch ronic anemia hypertension hypothyroidism GERD Time Spent with Patient Time attestation: Total time spent providing and/or coordinating discharge services: Time spent: Greater than 30 minutes EXAM Constitutional Vitals: Temp Pulse Resp BP Pulse Ox 98.6 F 78 14 149/74 93 05/18/21 08:01 05/18/21 11:19 05/18/21 11:19 05/18/21 10:01 05/18/21 11:19 Discharge Plan Patient/Caregiver Discharge Instructions Activity: increase activity as tolerated Diet: Regular Diet Activity Restrictions/Additional Instructions: soft bland diet advance to regular as tolerated. Referral to see pulmonology for possible sleep study 1 to 2 weeks Prescriptions: New amoxicillin-pot clavulanate [Augmentin] 875-125 mg tablet 1 tab PO Q12H Qty: 10 RF: 0 Continued losartan 50 mg tablet 50 mg PO DAILY Qty: 90 RF: 0 levothyroxine 100 MCG recon soln 100 mcg PO QDAY RF: 0 tacrolimus [Prograf] 1 mg capsule 3 mg PO Q12H RF: 0 magnesium 400MG 1 tab PO QDAY RF: 0 prednisone 5 mg tablet 5 mg PO QDAY RF: 0 omeprazole 20 MG capsule 20 mg PO DAILY RF: 0 donepezil 10 MG tablet 10 mg PO HS RF: 0 diltiazem HCl 120 MG capsule,extended release 24hr 120 mg PO DAILY RF: 0 polyethylene glycol 3350 [Miralax] 17 gram/dose powder 17 g PO BID PRN (Reason: constipation) Qty: 119 RF: 0 glycerin (adult) Suppository 1 supp RI QDAY PRN (Reason: constipation) Qty: 12 RF: 0 amlodipine 10 mg PO DAILY RF: 0 torsemide 20 mg PO DAILY RF: 0 mycophenolate mofetil 250 mg Capsule 750 mg PO BID RF: 0 Discontinued spironolactone 25 MG tablet 50 mg PO DAILY RF: 0 amoxicillin-pot clavulanate [Augmentin] 875-125 mg tablet 1 tab PO Q12H 10 Days Qty: 20 RF: 0 Follow Up Plan Follow up with: Turner Devine MD [Primary Care Provider] - Patient Disposition: Home, Self-Care Prognosis: Fair Overall status at discharge: patient is progressing back to baseline Discharge Orders: Discharge Order (Routine); Ordered 05/19/21 Ordered By: Nemesio Villanueva
--- NOTE | 2021-05-18 12:39 | General Surgery Progress Note ---
SUBJECTIVE Subjective Patient information: Note initiated : 05/18/21 at 12:38 pm Service Date, if different from initiated Date: [] Patient: Wendy Ellsworth 66 y/o F admitted on 05/15/21 for constipation. Chief Complaint: [] Interval history: Patient feels much better today, is tolerating clear liquid diet without difficulty. Pain is resolved and she has had return of bowel function. Constitutional Vitals: Vital Signs Temp Pulse Resp BP Pulse Ox 98.6 F 78 14 149/74 93 05/18/21 08:01 05/18/21 11:19 05/18/21 11:19 05/18/21 10:01 05/18/21 11:19 Period Temp Pulse Resp BP Sys/Reynoso Pulse Ox Last 24 Hr 97.4 F-98.7 F 72-101 12-27 118-149/62-82 89-97 Intake and Output 05/17/21 05/18/21 05/18/21 21:59 05:59 13:59 Intake Total 50 1050 50 Output Total 550 600 400 Balance -500 450 -350 Weight 154 lb 9.6 oz Intake & Output: Intake & Output 05/17/21 05/18/21 05/18/21 21:59 05:59 13:59 Intake Total 50 1050 50 Output Total 550 600 400 Balance -500 450 -350 Weight 154 lb 9.6 oz Intake: IV 50 1050 50 Zosyn 2.25 gm In Dextrose 5% in 50 50 50 Water 50 ml @ 100 mls/hr IV Q6H BK Rx#:[id number] Sodium Bicarbonate Vial 150 Meq 1000 In Dextrose 5% in Water 850 ml @ 84 mls/hr IV Q20H BK Rx#: [id number] Output: Void Amount 550 600 400 Other: Urine Appearance Clear Clear Urine Color Pale Urine Odor Normal General appearance: cooperative and no acute distress GI/Abdominal GI/Abdominal exam: Present soft; Absent distended, guarding, mass and tenderness A/P Narrative A/P Narrative: Resolving diverticulitis. Cleared advance to regular diet as tolerated, clear to switch to oral antibiotics as tolerated clear for discharge from surgical standpoint. Follow-up with me in 2 weeks to schedule outpatient colonoscopy. Time Spent With Patient Time: Total time spent is greater than 50% in coordination of care (as documented) at patient's floor/unit and/or counseling patient:
[2021-05-18] MEDS: SODIUM BICARBONATE 650 MG TABLET PO SCH ×2 (17:01→21:23)
[2021-05-18] MEDS ORDERED: SENNOSIDES 1 TABLET PO SCH (21:00)
[2021-05-19] MEDS: PIPERACILLIN SODIUM/TAZOBACTAM 2.25 GM in DEXTROSE 5% IN WATER 50 ML IV SCH ×2 (05:54→11:39)
[2021-05-19] MEDS: 0.9 % SODIUM CHLORIDE 10 ML SYRINGE IV SCH (05:54)
[2021-05-19] MEDS ORDERED: LEVOTHYROXINE 100 MCG VIAL IV SCH (07:30)
[2021-05-19] MEDS ORDERED: PANTOPRAZOLE 40 MG VIAL IV SCH (07:30)
[2021-05-19] MEDS: DOCUSATE SODIUM 100 MG CAPSULE PO SCH (08:46)
[2021-05-19] MEDS ORDERED: DILTIAZEM 120 MG CAP.XL.24H PO SCH (09:00)
[2021-05-19] MEDS ORDERED: DEXAMETHASONE 10 MG/ML VIAL IV SCH (09:00)
[2021-05-19] MEDS: SODIUM BICARBONATE 650 MG TABLET PO SCH (09:33)
[2021-05-19] MEDS: MYCOPHENOLATE 250 MG CAPSULE PO SCH (09:33)
[2021-05-19] MEDS: HEPARIN 5,000 UNIT/ML VIAL SQ SCH (09:33)
[2021-05-19] MEDS: TACROLIMUS 1 MG CAPSULE PO SCH (09:37)
[2021-05-23 11:54] LABS: Opiate Confirmation Positive
== END 2021-05-19 12:50 | disposition home or self-care (01) | DRG 392 ==
LOC: ED 19:44 → ICU 23:18 → MEDSUR 05-18 17:07
PROVIDERS: ADMIT Internal Medicine; ATTEND Internal Medicine

== ENCOUNTER 2022-01-22 09:30 | Inpatient (IN) ==
[2022-01-22] MEDS ORDERED: IOPAMIDOL 100 ML BOTTLE IV ONE (09:31)
[2022-01-22] MEDS ORDERED: 0.9 % SODIUM CHLORIDE 1,000 ML IV ONE ×2 (10:02→14:55)
[2022-01-22] MEDS ORDERED: ASPIRIN 81 MG TAB.CHEW CHEWED ONE (10:04)
[2022-01-22] MEDS ORDERED: MECLIZINE 25 MG TABLET PO ONE (10:05)
[2022-01-22 11:04] LABS: Basophils # (Auto) 0.08 K/mcL (0.00-0.30); Basophils % (Auto) 0.8 % (0.0-2.0); Eosinophils # (Auto) 0.17 K/mcL (0.00-0.70); Eosinophils % (Auto) 1.8 % (0.0-7.0); Hemoglobin 10.3 g/dL (11.2-15.7); Lymphocytes # (Auto) 2.15 K/mcL (1.50-4.80); Lymphocytes % (Auto) 22.1 % (15.5-49.0); Mean Corpuscular HGB Conc 30.3 g/dL (31.0-36.0); Mean Platelet Volume 10.9 fL (7.4-10.4); Monocytes # (Auto) 0.97 K/mcL (0.10-0.90); Neutrophils % (Auto) 65.3 % (38.0-78.0); Platelet Count 296 K/mcL (140-440); RBC 3.58 M/mcL (3.59-5.38); Red Cell Distribution Width 14.6 % (11.5-14.5); WBC 9.7 K/mcL (4.5-11.0)
[2022-01-22 11:25] LABS: ALT/SGPT 17 U/L (<40); AST/SGOT 11 U/L (<32); Albumin 3.4 gm/dL (3.2-5.2); Albumin/Globulin Ratio 1.1 (1.0-2.3); Alkaline Phosphatase 83 U/L (39-117); Bilirubin,Total 0.5 mg/dL (0.1-1.0); Blood Urea Nitrogen 49 mg/dL (8-23); Carbon Dioxide 19 mmol/L (22-30); Chloride 107 mmol/L (96-108); Globulin 3.1 gm/dL (2.2-3.7); Glomerular Filtration Rate 20; Glucose 92 mg/dL (70-105)
--- NOTE | 2022-01-22 11:32 | Emergency Department Note ---
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 She reports persistent vertigo and balance issues associated with intermittent nausea for the past week. This has been constant. She denies significant change with head movements. She denies fever or chill. She denies chest pain or shortness of breath. She denies neck pain. She has never had vertigo prior to this. Patient also reports generalized weakness for about this time. Subsequently she developed left toe gout and has great toe pain. She denies fever or chills. She denies foot trauma. Related Data Home Medications Medication Instructions Recorded Confirmed omeprazole 20 mg capsule,delayed 20 mg PO DAILY 08/11/15 08/26/21 release levothyroxine 100 mcg intravenous 100 mcg PO QDAY ml 02/05/16 08/26/21 powder for solution magnesium 400MG 1 tab PO QDAY 02/05/16 08/26/21 tacrolimus 1 mg capsule, 3 mg PO Q12H cap 02/05/16 08/26/21 immediate-release (Prograf) prednisone 5 mg tablet 5 mg PO QDAY 06/07/17 08/26/21 donepezil 10 mg tablet 10 mg PO HS 04/22/19 08/26/21 diltiazem HCl 120 mg 120 mg PO DAILY 11/30/19 08/26/21 capsule,extended release 24 hr amlodipine 10 mg PO DAILY 05/15/21 08/26/21 mycophenolate mofetil 250 mg 750 mg PO BID 05/15/21 08/26/21 capsule torsemide 20 mg PO DAILY 05/15/21 08/26/21 Previous Rx's Medication Instructions Recorded losartan 50 mg tablet 50 mg PO DAILY #90 tab 09/11/18 glycerin (adult) 1 supp [place] QDAY PRN #12 ea 05/14/21 polyethylene glycol 3350 17 17 g PO BID PRN #119 g 05/14/21 gram/dose oral powder (Miralax) Allergies Allergy/AdvReac Type Severity Reaction Status Date / Time ciprofloxacin AdvReac Intermediate Cramping Verified 01/22/22 09:35 of the Muscles levofloxacin AdvReac Intermediate Other Verified 01/22/22 09:35 Quinolones AdvReac Intermediate Muscle Pain Verified 01/22/22 09:35 Cephalosporins AdvReac Mild Rash Verified 01/22/22 09:35 cilastatin [From Primaxin] AdvReac Mild Rash Verified 01/22/22 09:35 droperidol [From Inapsine] AdvReac Mild Rash Verified 01/22/22 09:35 imipenem [From Primaxin] AdvReac Mild Rash Verified 01/22/22 09:35 Labetalol [From Trandate] AdvReac Mild Rash Verified 01/22/22 09:35 meperidine [From Demerol] AdvReac Mild Rash Verified 01/22/22 09:35 metronidazole [From Flagyl] AdvReac Mild Rash Verified 01/22/22 09:35 pentazocine [From Talwin] AdvReac Mild Rash Verified 01/22/22 09:35 phenobarbital AdvReac Mild Rash Verified 01/22/22 09:35 propoxyphene AdvReac Mild Rash Verified 01/22/22 09:35 [From Darvocet-N] tobramycin AdvReac Mild Rash Verified 01/22/22 09:35 Review of Systems ROS ROS Narrative: Narrative: All systems ED: reviewed and negative except as stated. PFSH Narrative Patient History Narrative: Narrative: Medical/Surgical/Family History All Active Problems (Updated 01/22/22 @ 16:48 by Rachid Anderson DO) Vertigo (Acute) Gout flare (Acute) Pulmonary emboli (Acute) Stenosis of both vertebral arteries (Acute) Nausea & vomiting (Acute) Matos's palsy (Acute) Diverticulitis (Acute) Constipation (Acute) Acute diverticulitis of intestine (Acute) Kidney transplant recipient (Acute) Vlukr-zl-unjhsal kidney injury (Acute) Cardiomegaly (Acute) Elevated brain natriuretic peptide (BNP) level (Acute) Fall (Acute) Hematoma of parietal scalp (Acute) Depression with suicidal ideation (Acute) Acute UTI (urinary tract infection) (Acute) Ureterolithiasis (Acute) Compression fracture of T11 vertebra (Acute) Suicide attempt (Acute) Laceration (Acute) Acute UTI (Acute) Anemia (Acute) CRF (chronic renal failure) (Acute) Acute alteration in mental status (Acute) ST elevation (STEMI) myocardial infarction (Acute) Right shoulder pain (Acute) Acute right-sided thoracic back pain (Acute) Hypertension (Acute) Urinary frequency (Acute) 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) Secondary hyperparathyroidism of renal origin (Chronic) Hyperlipidemia (Chronic) Glaucoma (Chronic) Macular degeneration (Chronic) Diverticulitis (Chronic) Idiopathic aseptic necrosis of femur (Chronic) Osteoporosis (Chronic) Vitamin D deficiency (Chronic) Anemia (Chronic) Essential hypertension (Chronic) Chronic kidney disease (CKD) (Chronic) Medical History Anemia Borderline hyperglycemia Chronic kidney disease (CKD) Stage 3 Dislocation, finger, metacarpophalangeal joint Diverticulitis Essential hypertension Glaucoma Hyperlipidemia Idiopathic aseptic necrosis of femur Macular degeneration Nausea & vomiting 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 Patient with chronic kidney insufficiency Osteoporosis Other retirement (current) drug therapy Phlebitis and thrombophlebitis Secondary hyperparathyroidism of renal origin Urinary tract infection Vitamin D deficiency Surgical History 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 Family history of AICD (automatic internal cardiac defibrillator) (~1996) History of hand surgery (~08/2015) History of hysterectomy (~1978) History of intraocular lens implant February & March 1989 History of kidney transplant (07/27/00) History of knee surgery (~04/2009) History of orthopedic surgery (04/28/96) mohamud placement in right leg 04/28/96 @ [facility]; muscle relocation and skin grafts of right leg 04/29/96 @ [facility] History of parathyroidectomy (11/27/95) History of surgery fistula placement February 1993 @ [facility]; fistula declot; Graft placement upper right arm 10/1999 @ [facility] Kidney replaced by transplant Status post biopsy of kidney (~03/2007) Family History Father Hypertension CVA (cerebral vascular accident) Colon polyps needed surgical resection/partial colectomy Prostate cancer Hyperlipidemia Social History Smoking Status: Never smoker Alcohol Intake Frequency: does not drink Substance Use: does not use Exam Narrative Narrative: Narrative: General Limitations: no limitations General appearance: Present alert and in no apparent distress Head Head: Present atraumatic and normocephalic Eye Eye: Present normal appearance, PERRL, EOMI and nystagmus ENT ENT: Present normal exam, normal oropharynx and mucous membranes moist Neck Neck: Present normal inspection, full ROM and other (no bruit); Absent tenderness Chest Chest: Present normal inspection and symmetric chest wall rise Respiratory Respiratory: Present normal lung sounds bilaterally; Absent respiratory distress Cardiovascular Cardiovascular: Present regular rate and normal rhythm Adbominal Abdominal: Present soft; Absent distention or tenderness Extremities Extremities: Present normal inspection, full ROM and other (L great toe erythematous, tender, warm); Absent pedal edema Back Back: Present normal inspection and full ROM; Absent CVA tenderness (R) or CVA tenderness (L) Neurological Neurological: Present alert, oriented X3 and other (NIH stroke scale 0, initial abnormal gait, on repeat exam resolved with no ataxia, negative test of skew) Psychiatric Psychiatric: Present normal affect and normal mood Skin Skin: Present warm (WNL), dry and normal color Course Vital Signs Vital signs: Vital Signs Temperature 96.8 F L 01/22/22 09:31 Pulse Rate 79 01/22/22 09:31 Respiratory Rate 22 01/22/22 09:31 Blood Pressure 144/84 01/22/22 09:31 Pulse Oximetry (%) 90 01/22/22 09:31 Temperature 96.8 F L 01/22/22 09:31 Pulse Rate 60 01/22/22 11:11 Respiratory Rate 18 01/22/22 11:11 Blood Pressure 158/90 01/22/22 11:11 Pulse Oximetry (%) 99 01/22/22 11:11 [facility] Narrative Medical decision making narrative: Narrative: Patient with subacute vertigo over the past week. Symptoms concerning for subacute CVA. She was given aspirin, will need admission for work-up. Case d iscussed with hospitalist who refuses for admission due to not having a neurologist available onsite. Initially planned for transfer, but her vertigo resolved and she was able to ambulate. In discussion with neurology, requested arterial imaging. She was unable to get MRI due to defibrillator in spite of no active battery and device concern for wire injury/eating. She does have CKD, so case was discussed with nephrology ball with CT scan with IV fluid I do agree with this as backed up by most recent studies regarding IV contrast. Patient was consented for contrast and risk of renal failure. Pulmonary embolisms were discovered on imaging, likely contributing to her increased dizziness. She does have moderate vertebral stenosis but noncritical, and with resolved dizziness is stable from outpatient follow-up this perspective. Case was discussed again with hospitalist and he accepts for admission for initial treatment. She was heparinized as she is on aspirin and Plavix rather than going directly to oral anticoagulation due to increased risk of bleeding. Additionally patient with gout exacerbation she was creased dose of steroid Lab Data Lab results reviewed: Yes I reviewed the patient's lab results. Lab results narrative: Creatinine at baseline Result diagrams: 01/22/22 10:25 01/22/22 10:24 Labs: Lab Results 01/22/22 01/22/22 01/22/22 Range/Units 10:24 10:24 10:24 WBC (4.5-11.0) K/mcL RBC (3.59-5.38) M/mcL Hgb (11.2-15.7) g/dL Hct (34.1-44.9) % MCV (80.0-100.0) fL MCH (26.0-34.0) pg MCHC (31.0-36.0) g/dL RDW (11.5-14.5) % Plt Count (140-440) K/mcL MPV (7.4-10.4) fL Neut % (Auto) (38.0-78.0) % Lymph % (Auto) (15.5-49.0) % Schley % (Auto) (1.0-12.0) % Eos % (Auto) (0.0-7.0) % Baso % (Auto) (0.0-2.0) % Lymph # (Auto) (1.50-4.80) K/mcL Schley # (Auto) (0.10-0.90) K/mcL Eos # (Auto) (0.00-0.70) K/mcL Baso # (Auto) (0.00-0.30) K/mcL Absolute Neutrophils (1.80-8.00) K/mcL VBG Lactic Acid 0.7 (0.5-2.0) mmol/L Sodium 141 (133-145) mmol/L Potassium 4.0 (3.3-5.1) mmol/L Chloride 107 (96-108) mmol/L Carbon Dioxide 19 L (22-30) mmol/L Anion Gap 15.0 (8.0-16.0) BUN 49 H (8-23) mg/dL Creatinine 2.4 H (0.6-1.1) mg/dL GFR Calculation 20 Glucose 92 (70-105) mg/dL Calcium 7.0 L (8.6-10.4) mg/dL Magnesium 1.8 (1.6-2.5) mg/dL Total Bilirubin 0.5 (0.1-1.0) mg/dL AST 11 (<32) U/L ALT 17 (<40) U/L Alkaline Phosphatase 83 (39-117) U/L Troponin T < 0.01 (<0.03) ng/mL Total Protein 6.5 (5.9-8.4) gm/dL Albumin 3.4 (3.2-5.2) gm/dL Globulin 3.1 (2.2-3.7) gm/dL Albumin/Globulin Ratio 1.1 (1.0-2.3) 01/22/22 Range/Units 10:25 WBC 9.7 (4.5-11.0) K/mcL RBC 3.58 L (3.59-5.38) M/mcL Hgb 10.3 L (11.2-15.7) g/dL Hct 34.0 L (34.1-44.9) % MCV 95.0 (80.0-100.0) fL MCH 28.8 (26.0-34.0) pg MCHC 30.3 L (31.0-36.0) g/dL RDW 14.6 H (11.5-14.5) % Plt Count 296 (140-440) K/mcL MPV 10.9 H (7.4-10.4) fL Neut % (Auto) 65.3 (38.0-78.0) % Lymph % (Auto) 22.1 (15.5-49.0) % Schley % (Auto) 10.0 (1.0-12.0) % Eos % (Auto) 1.8 (0.0-7.0) % Baso % (Auto) 0.8 (0.0-2.0) % Lymph # (Auto) 2.15 (1.50-4.80) K/mcL Schley # (Auto) 0.97 H (0.10-0.90) K/mcL Eos # (Auto) 0.17 (0.00-0.70) K/mcL Baso # (Auto) 0.08 (0.00-0.30) K/mcL Absolute Neutrophils 6.34 (1.80-8.00) K/mcL VBG Lactic Acid (0.5-2.0) mmol/L Sodium (133-145) mmol/L Potassium (3.3-5.1) mmol/L Chloride (96-108) mmol/L Carbon Dioxide (22-30) mmol/L Anion Gap (8.0-16.0) BUN (8-23) mg/dL Creatinine (0.6-1.1) mg/dL GFR Calculation Glucose (70-105) mg/dL Calcium (8.6-10.4) mg/dL Magnesium (1.6-2.5) mg/dL Total Bilirubin (0.1-1.0) mg/dL AST (<32) U/L ALT (<40) U/L Alkaline Phosphatase (39-117) U/L Troponin T (<0.03) ng/mL Total Protein (5.9-8.4) gm/dL Albumin (3.2-5.2) gm/dL Globulin (2.2-3.7) gm/dL Albumin/Globulin Ratio (1.0-2.3) Radiology Data Radiology results reviewed: Yes I reviewed the patient's radiology results. EKG Data EKG #1: EKG attestation: Yes I reviewed and interpreted this EKG. EKG results narrative: Atrial fibrillation at a rate of 69. Normal TC 463. Septal Q waves, poor R wa ve progression. Inferior Q waves. No acute appearing ST-T changes. Abnormal EKG. CC TIME Critical Care Time Critical Care Time: Yes Attestation: Approximately [30] minutes of critical care time was used in order to assess and manage the high probability of imminent or life threatening deterioration to [pulmonary embolism] which required my highest level of preparedness and interventions with frequent patient assessments. This time is excluding time spent on separately billable procedures. Discharge Plan Patient/Caregiver Discharge Instructions Pt seen by CDL BULK DRIVER/PA only: No Clinical Impression: Vertigo, Gout flare, Pulmonary emboli, Stenosis of both vertebral arteries Patient Disposition: Xfer As Inpt ([facility]) Follow up with: Turner Devine MD [Primary Care Provider] - Prescriptions: No Action losartan 50 mg tablet 50 mg PO DAILY Qty: 90 0RF levothyroxine 100 MCG recon soln 100 mcg PO QDAY 0RF tacrolimus [Prograf] 1 mg capsule 3 mg PO Q12H 0RF magnesium 400MG 1 tab PO QDAY 0RF prednisone 5 mg tablet 5 mg PO QDAY 0RF omeprazole 20 MG capsule 20 mg PO DAILY 0RF Rx Instructions: 30 mins. before morning meal donepezil 10 MG tablet 10 mg PO HS 0RF diltiazem HCl 120 MG capsule,extended release 24hr 120 mg PO DAILY 0RF polyethylene glycol 3350 [Miralax] 17 gram/dose powder 17 g PO BID PRN (Reason: constipation) Qty: 119 0RF Rx Instructions: You can take 1 capfull every 2 hours until bowel movement. glycerin (adult) Suppository 1 supp [place] QDAY PRN (Reason: constipation) Qty: 12 0RF amlodipine 10 mg PO DAILY 0RF torsemide 20 mg PO DAILY 0RF mycophenolate mofetil 250 mg Capsule 750 mg PO BID 0RF
[2022-01-22 12:32] LABS: Appearance,Urine TURBID (Clear); Bacteria,Urine MANY /hpf (0); Bilirubin,Urine Negative (Negative); Color,Urine YELLOW; Culture Indicated,Urine No; Glucose,Urine (UA) Negative (Negative); Ketones,Urine Negative (Negative); Leukocyte Esterase,Urine 500 /uL (Negative); Mucus,Urine FEW /hpf; Nitrate,Urine Negative (Negative); Protein,Urine 100 mg/dL (Negative); Urine Blood 0.03 mg/dL (Negative); Urine RBC 3 /hpf (0-3); Urine Squamous Epithelial Cell 8 /hpf (0-4); Urine Transitional Epi Cells 1 /hpf (0-2); Urine WBC > 182 /hpf (0-4); Urobilinogen,Urine Negative
[2022-01-22] MEDS ORDERED: predniSONE 20 MG TABLET PO ONE (12:42)
--- NOTE | 2022-01-22 14:11 | Cat Scan Report ---
History: New onset vertigo and increased weakness TECHNIQUE: The brain was imaged without contrast in axial plane at 2.5 mm intervals. Sagittal and coronal reformats were created. The radiation exposure was limited using dose reduction technology. FINDINGS: There is a 1.2 cm old lacunar infarct with encephalomalacia in the right charles radiata. This extends into the top of the right internal capsule and also superior border of the right putamen. Also extends superiorly into the subcortical white matter in the posterior right frontal lobe. There is severe white matter disease with large confluent areas of abnormal decreased attenuation in the centrum semiovale throughout the frontal and parietal lobes. There is a 4 mm old lacunar infarct posteriorly and inferiorly in the right putamen. There is a 5 mm old lacunar infarct posteriorly in the left putamen. No acute infarct is detected. There is no hemorrhage or mass effect. Brainstem and cerebellum are normal. There is moderate bilateral frontal lobe atrophy and mild temporal, parietal and cerebellar atrophy. The ventricles are normal in size. There is no abnormal extra-axial fluid collection. Densely calcified plaques are present in both vertebral arteries at the foramen magnum and proximal basilar artery. There is also involvement in both carotid arteries, within the cavernous sinus. There may be a hemodynamically significant stenoses in the vertebral arteries and proximal basilar artery. Comparison with prior head CTs done on 07/20/2020 and 02/22/2021 shows no change. The mastoids are clear. Visualized paranasal sinuses are clear. IMPRESSION: Moderate-sized old infarct in right basal ganglia and right charles radiata Stable age-related degenerative changes Severe atherosclerotic disease in the posterior fossa No change from prior exams Dr. Anderson was called with the report Interpreted and Authenticated by: José Garcia 01/22/22
[2022-01-22] MEDS ORDERED: cefTRIAXone 1 GM VIAL IV ONE (14:12)
--- NOTE | 2022-01-22 14:47 | XRay Report ---
HISTORY: Increased weakness and dizziness FINDINGS: The heart is moderately enlarged. There is no congestive heart failure. Pacemaker is well-positioned. The lungs are clear. No pleural effusion is present. Comparison with the prior exam from 06/05/21 shows the heart is larger at this time. IMPRESSION: Moderate cardiomegaly, without congestive heart failure Interpreted and Authenticated by: José Garcia 01/22/22
--- NOTE | 2022-01-22 14:49 | XRay Report ---
HISTORY: Pain and swelling in the first toe FINDINGS: Mild soft tissue swelling is present in the first toe centered over the interphalangeal joint. The bones are normal. There is no fracture, subluxation or arthritis. No bone erosion or periosteal elevation are present. There is a large amount of atherosclerotic plaque in the arteries in the foot extending into the toes. No foreign body is seen. IMPRESSION: Soft tissue swelling in the first toe and no evidence of osteomyelitis Interpreted and Authenticated by: José Garcia 01/22/22
--- NOTE | 2022-01-22 15:50 | Cat Scan Report ---
History: Increased dizziness and weakness, atherosclerosis in the intracranial arteries, possible stroke TECHNIQUE: Patient has a transplanted kidney with poor renal function. Patient was advised that there is a risk of permanent kidney damage with the injection of intravenous contrast. Patient was prehydrated with a liter of normal saline. 70 cc of Isovue-370 was injected intravenously. Arterial phase images were acquired from the aortic arch to the top of the head. Sagittal and coronal reformats of the head and neck were created along with curvilinear reformats of the carotid arteries and 3-D volume rendered images of the carotids and vertebrals. The radiation exposure was limited using dose reduction technology. FINDINGS: Patient has multiple small pulmonary emboli in both upper lobes and in the visualized portion of the main pulmonary artery is 4 cm in diameter. At the same level the ascending aorta is 3.9 cm. Most of the heart is outside the field of view. The heart is enlarged and there is a moderate amount of calcified plaque in the coronary arteries. There is a mosaic distribution of groundglass alveolar infiltrates in both upper lobes. NECK: There are scattered plaques along the wall of the aortic arch. The arch is normal in caliber and there is no aneurysm or dissection. There is some plaque origin of the innominate artery and left subclavian artery. This is not causing stenosis. Both common carotid arteries are tortuous. There is plaque formation in the carotid bifurcations bilaterally, right greater than left. This is causing approximately 50% stenosis the right external carotid. There is less than 20% stenosis at the origin of the right internal carotid. There is no stenosis of the left internal or external carotids. Beyond their origins both internal carotid arteries are normal in caliber to the level of the skull base. The vertical portions of the vertebral arteries are normal in caliber and have normal origins off of the subclavian arteries. The left vertebral artery is dominant. Moderate disc space narrowing at C3-4 and there is 3 mm retrolisthesis. At C5-6 there is mild disc space narrowing. Brain: At the foramen magnum there are densely calcified plaques in both vertebral arteries. This is causing approximately 80% stenosis of the right vertebral approximately 60% stenosis of the left vertebral. There is also a large amount of plaque in the basilar artery just above the foramen magnum. There is a 70% stenosis. There is no associated thrombosis. Above the plaque the mid and distal portion of the basilar artery are normal. There is blood flow to the posterior inferior cerebellar arteries bilaterally. The anterior inferior cerebellar arteries are very small in caliber and difficult to evaluate. The superior cerebellar arteries are normal. The posterior cerebral is are normal. A moderate amount of plaque is present in the cavernous portions of both internal carotids. There is proximally 60% stenosis at the level of the anterior clinoids. Above the anterior clinoids the internal carotids are normal. The anterior and middle cerebral arteries are normal in caliber with no stenosis or thrombosis. There is no intracranial vascular occlusion. No aneurysm or vascular malformation are present. There is no enhancing lesion within the brain. IMPRESSION: Bilateral pulmonary emboli 80% stenosis in the right vertebral at the foramen magnum, 60% stenosis in the left vertebral at the foramen magnum and 70% stenosis of the basilar artery above the foramen magnum. Mosaic distribution of mild groundglass alveolar infiltrates in both upper lobes. This could be a viral infection. Dr. Anderson was called with the report Interpreted and Authenticated by: José Garcia 01/22/22
[2022-01-22] MEDS: HEPARIN SOD,PORK IN 0.45% NACL 25,000 UNIT in PREMIX 1 BAG IV SCH (16:24)
--- NOTE | 2022-01-22 18:00 | Internal Med History&Physical ---
HPI History of Present Illness Patient information: Note initiated : 01/22/22 at 5:54 pm Service Date, if different from initiated Date: [] Patient: Wendy Ellsworth a 66 y/o F admitted on for Weakness. Chief Complaint: [] Chief complaint: Vertigo History of present illness: Ms. 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 Patient seems to notice that it correlates with change in position and head movements. She denies any tinnitus or hearing loss. Denies any recent viral URI symptoms. Denies dizziness or feeling of passing out. Considering her history of lupus and CVAs, we obtained CTA of head and neck in the emergency room, which incidentally showed bilateral pulmonary embolism. When I saw her in the emergency room, she complained about bed not being comfortable. She preferred to lay still in one position so as to not trigger her vertigo episodes. She reported being uncomfortable on the bed and subsequently was not in a position to offer detailed history. Constitutional Constitutional: Absent anorexia, chills, fatigue, fever(s), headache(s), lethargy, malaise or night sweats Cardiovascular Cardiovascular: Absent chest pain, chest pain at rest, diaphoresis, irregular heart rhythm or lightheadedness Respiratory Respiratory: Absent hemoptysis, wheezing or excessive phlegm production Gastrointestinal Gastrointestinal: Absent diarrhea, hematemesis, melena, nausea or vomiting Genitourinary Genitourinary: Absent dysuria Neurological Neurological: Absent abnormal gait, abnormal speech, confusion, dizziness or headache(s) PFSH PFSH All Active Problems Vertigo (Acute) Gout flare (Acute) Pulmonary emboli (Acute) Stenosis of both vertebral arteries (Acute) Nausea & vomiting (Acute) Matos's palsy (Acute) Diverticulitis (Acute) Constipation (Acute) Acute diverticulitis of intestine (Acute) Kidney transplant recipient (Acute) [id number] kidney injury (Acute) Cardiomegaly (Acute) Elevated brain natriuretic peptide (BNP) level (Acute) Fall (Acute) Hematoma of parietal scalp (Acute) Depression with suicidal ideation (Acute) Acute UTI (urinary tract infection) (Acute) Ureterolithiasis (Acute) Compression fracture of T11 vertebra (Acute) Suicide attempt (Acute) Laceration (Acute) Acute UTI (Acute) Anemia (Acute) CRF (chronic renal failure) (Acute) Acute alteration in mental status (Acute) ST elevation (STEMI) myocardial infarction (Acute) Right shoulder pain (Acute) Acute right-sided thoracic back pain (Acute) Hypertension (Acute) Urinary frequency (Acute) Other mcfp (current) drug therapy (Chronic) Secondary hyperparathyroidism of renal origin (Chronic) Hyperlipidemia (Chronic) Glaucoma (Chronic) Macular degeneration (Chronic) Diverticulitis (Chronic) Idiopathic aseptic necrosis of femur (Chronic) Osteoporosis (Chronic) Vitamin D deficiency (Chronic) Anemia (Chronic) Essential hypertension (Chronic) Chronic kidney disease (CKD) (Chronic) Medical History Anemia Borderline hyperglycemia Chronic kidney disease (CKD) Stage 3 Dislocation, finger, metacarpophalangeal joint Diverticulitis Essential hypertension Glaucoma Hyperlipidemia Idiopathic aseptic necrosis of femur Macular degeneration Nausea & vomiting 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 Patient with chronic kidney insufficiency Osteoporosis 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 Phlebitis and thrombophlebitis Secondary hyperparathyroidism of renal origin Urinary tract infection Vitamin D deficiency Surgical History 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 Family history of AICD (automatic internal cardiac defibrillator) (~1996) History of hand surgery (~08/2015) History of hysterectomy (~1978) History of intraocular lens implant February & March 1989 History of kidney transplant (07/27/00) History of knee surgery (~04/2009) History of orthopedic surgery (04/28/96) mohamud placement in right leg 04/28/96 @ [place]; muscle relocation and skin grafts of right leg 04/29/96 @ [place] History of parathyroidectomy (11/27/95) History of surgery fistula placement February 1993 @ [place]; fistula declot; Graft placement upper right arm 10/1999 @ [place] Kidney replaced by transplant Status post biopsy of kidney (~03/2007) Family History Father Hypertension CVA (cerebral vascular accident) Colon polyps needed surgical resection/partial colectomy Prostate cancer Hyperlipidemia Social History alcohol intake frequency: does not drink substance use type: does not use MEDS/ALLERGIES Home Medications and Allergies Home Medications Medication Instructions Recorded Confirmed Type omeprazole 20 mg capsule,delayed 20 mg PO DAILY 08/11/15 08/26/21 History release levothyroxine 100 mcg intravenous 100 mcg PO QDAY ml 02/05/16 08/26/21 History powder for solution magnesium 400MG 1 tab PO QDAY 02/05/16 08/26/21 History tacrolimus 1 mg capsule, 3 mg PO Q12H cap 02/05/16 08/26/21 History immediate-release (Prograf) prednisone 5 mg tablet 5 mg PO QDAY 06/07/17 08/26/21 History losartan 50 mg tablet 50 mg PO DAILY #90 tab 09/11/18 08/26/21 Rx donepezil 10 mg tablet 10 mg PO HS 04/22/19 08/26/21 History diltiazem HCl 120 mg 120 mg PO DAILY 11/30/19 08/26/21 History capsule,extended release 24 hr glycerin (adult) 1 supp [place] QDAY PRN #12 ea 05/14/21 08/26/21 Rx polyethylene glycol 3350 17 17 g PO BID PRN #119 g 05/14/21 08/26/21 Rx gram/dose oral powder (Miralax) amlodipine 10 mg PO DAILY 05/15/21 08/26/21 History mycophenolate mofetil 250 mg 750 mg PO BID 05/15/21 08/26/21 History capsule torsemide 20 mg PO DAILY 05/15/21 08/26/21 History Allergies Allergy/AdvReac Type Severity Reaction Status Date / Time ciprofloxacin AdvReac Intermediate Cramping Verified 01/22/22 09:35 of the Muscles levofloxacin AdvReac Intermediate Other Verified 01/22/22 09:35 Quinolones AdvReac Intermediate Muscle Pain Verified 01/22/22 09:35 Cephalosporins AdvReac Mild Rash Verified 01/22/22 09:35 cilastatin [From Primaxin] AdvReac Mild Rash Verified 01/22/22 09:35 droperidol [From Inapsine] AdvReac Mild Rash Verified 01/22/22 09:35 imipenem [From Primaxin] AdvReac Mild Rash Verified 01/22/22 09:35 Labetalol [From Trandate] AdvReac Mild Rash Verified 01/22/22 09:35 meperidine [From Demerol] AdvReac Mild Rash Verified 01/22/22 09:35 metronidazole [From Flagyl] AdvReac Mild Rash Verified 01/22/22 09:35 pentazocine [From Talwin] AdvReac Mild Rash Verified 01/22/22 09:35 phenobarbital AdvReac Mild Rash Verified 01/22/22 09:35 propoxyphene AdvReac Mild Rash Verified 01/22/22 09:35 [From Darvocet-N] tobramycin AdvReac Mild Rash Verified 01/22/22 09:35 EXAM Constitutional Vitals: Temp Pulse Resp BP Pulse Ox 96.8 F L 74 21 148/89 97 01/22/22 09:31 01/22/22 16:37 01/22/22 16:37 01/22/22 14:17 01/22/22 16:37 General appearance: average body habitus, cooperative and no acute distress Head Head exam: Present atraumatic and normocephalic Eye Eye exam: Present normal appearance ENT ENT exam: Present mucous membranes moist Respiratory Respiratory exam: Present normal respiratory exam and CTAB; Absent accessory muscle use, rales, respiratory distress, stridor or wheezes Cardiovascular Cardiovascular exam: Present normal rate and rhythm and RRR; Absent bradycardia, diastolic murmur, gallop, irregular rhythm or rubs GI/Abdominal GI/Abdominal exam: Present normal bowel sounds and soft; Absent distended, guarding or rebound Expanded Lower Extremity Exam Hip exam: Present normal inspection; Absent swelling Back Exam Back exam: Present normal inspection; Absent CVA tenderness (L), CVA tenderness (R), paraspinal tenderness or vertebral tenderness Neurological Exam Neurological exam: Present alert and oriented X3; Absent abnormal gait or motor sensory deficit DATA Data Completed and Pending Labs: Labs from last 24 hours 01/22/22 01/22/22 01/22/22 11:40 10:26 10:25 WBC 9.7 RBC 3.58 L Hgb 10.3 L Hct 34.0 L MCV 95.0 MCH 28.8 MCHC 30.3 L RDW 14.6 H Plt Count 296 MPV 10.9 H Neut % (Auto) 65.3 Lymph % (Auto) 22.1 [place] % (Auto) 10.0 Eos % (Auto) 1.8 Baso % (Auto) 0.8 Lymph # (Auto) 2.15 [place] # (Auto) 0.97 H Eos # (Auto) 0.17 Baso # (Auto) 0.08 Absolute Neutrophils 6.34 APTT 34.5 VBG Lactic Acid Sodium Potassium Chloride Carbon Dioxide Anion Gap BUN Creatinine GFR Calculation Glucose Calcium Magnesium Total Bilirubin AST ALT Alkaline Phosphatase Troponin T Total Protein Albumin Globulin Albumin/Globulin Ratio Urine Color Yellow Urine Appearance Turbid A Urine pH 5.0 Ur Specific [place] 1.010 Urine Protein 100 A Urine Glucose (UA) Negative Urine Ketones Negative Urine Occult Blood 0.03 Urine Nitrate Negative Urine Bilirubin Negative Urine Urobilinogen Negative Ur Leukocyte Esterase 500 A Urine RBC 3 Urine WBC > 182 H Ur Squamous Epith Cells 8 H Ur Transition Epith Cell 1 Urine Bacteria Many A Urine Mucus Few A Ur Culture Indicated? No 01/22/22 01/22/22 01/22/22 10:24 10:24 10:24 WBC RBC Hgb Hct MCV MCH MCHC RDW Plt Count MPV Neut % (Auto) Lymph % (Auto) [place] % (Auto) Eos % (Auto) Baso % (Auto) Lymph # (Auto) [place] # (Auto) Eos # (Auto) Baso # (Auto) Absolute Neutrophils APTT VBG Lactic Acid 0.7 Sodium 141 Potassium 4.0 Chloride 107 Carbon Dioxide 19 L Anion Gap 15.0 BUN 49 H Creatinine 2.4 H GFR Calculation 20 Glucose 92 Calcium 7.0 L Magnesium 1.8 Total Bilirubin 0.5 AST 11 ALT 17 Alkaline Phosphatase 83 Troponin T < 0.01 Total Protein 6.5 Albumin 3.4 Globulin 3.1 Albumin/Globulin Ratio 1.1 Urine Color Urine Appearance Urine pH Ur Specific [place] Urine Protein Urine Glucose (UA) Urine Ketones Urine Occult Blood Urine Nitrate Urine Bilirubin Urine Urobilinogen Ur Leukocyte Esterase Urine RBC Urine WBC Ur Squamous Epith Cells Ur Transition Epith Cell Urine Bacteria Urine Mucus Ur Culture Indicated? A/P Narrative A/P Narrative: In summary Ms. Ellsworth is a 66-year-old female with history of lupus coronary artery disease, CVA with residual facial droop, renal transplant on immunosuppressive therapy who presents with a week history of vertigo. Incidentally discovered bilateral pulmonary embolisms in the emergency room. Admitted for management of vertigo symptoms and new diagnosis of PE. Initially had refused admission since I felt her vertigo would be better served by a neurologist. However considering her acute pulmonary embolism, she needs urgent treatment with IV heparin drip. #Acute bilateral pulmonary embolisms Started on IV heparin drip at this time. Continue IV heparin drip for now. Considering her renal function, she will need warfarin initiation. We will start warfarin tomorrow and continue heparin drip until her INR is above 2. #Vertigo CTA H and N showed- 80% stenosis in the right vertebral at the foramen magnum, 60% stenosis in the left vertebral at the foramen magnum and 70% stenosis of the basilar artery above the foramen magnum. This seems to be from arterial stenotic lesions. Especially in the setting of her lupus, CVA, CAD-puts her at a high risk for being a vasculopath. # CAD-had ST elevation [place] in May 2021. Received cardiac stent. It has been 8 months since her stent placement. Cannot continue aspirin along with Plavix and systemic anticoagulation due to high risk of bleeding. Stop aspirin. Continue Plavix along with anticoagulation. Decision in accordance with the latest guidelines. As needed meclizine for symptom control #Systemic lupus erythematosus. She has the classic malar rash. Resume home medications-mycophenolate tacrolimus and prednisone. Hold torsemide for now to monitor renal function. #Hypertension-hold amlodipine for now. Since she received CTA of head and neck, I would expect some creatinine bump in the next 2 to 3 days, from contrast-induced nephropathy. Will trend BMP. #DVT prophylaxis-Heparin drip as above. . Time Spent With Patient Time: Total time spent is greater than 50% in coordination of care (as documented) at patient's floor/unit and/or counseling patient: Total time spent with greater than 50% in coordination of care (as documented) at patient's floor/unit and/or counseling patient:: Greater than 70 minutes Critical Care Time: No
--- OUTSIDE RECORDS SUMMARY | 2022-01-22 19:19 | External Medical Summary | Encounter Summary ---
:1955 Author Care Team Providers Name Role Phone Turner Devine MD Primary Care Provider [phone] Leeanne Lemus DIRECTOR OF CONVENTION SERVICES-[employer] Gem Carver [phone] Saji Fortune MD OTHER [phone] Reason for Visit Shoulder Pain pt is stating she takes prednisone yet i t shows inactive 07/19/21 Assessment and Plan 1. Full thickness rotator cuff tear orthopedic surgeon referral - full th ickness tear - now cardiac status is stable. Needs surgical intervention Discussion Note: None recorded.Patient educational handouts: No information available. Plan of Care Reminders Provider Appointments Rachelle Macdonald 01/27/2022 Gabi Sanders NP 11:00AM Lab None recorded. Referral Orthopedic Surgeon Referral 11/29/2021 Ed julian Brooks MD Procedures None recorded. Surgeries None recorded. Imaging None recorded. Medications Name Start Date cholecalciferol (vitamin D3) 125 mcg (5,000 unit) caps ule Take 1 capsule every day by oral route. clopidogrel 75 mg tablet Take 1 tablet every day by oral route. donepezil 10 mg tablet TAKE ONE TABLET BY MOUTH ONCE DAILY galantamine 4 mg tablet levothyroxine 100 mcg tablet losartan 50 mg tablet TAKE ONE TABLET BY MOUTH DAILY magnesium metoprolol succinate ER 25 mg tablet,extended release 24 hr Take 1 tablet 3 times a day by oral route. mycophenolate mofetil 250 mg capsule 08/17/2021 Take 3 capsules twice a day by oral route as directed . omeprazole 20 mg capsule,delayed release Take 1 capsule every day by oral route. prednisone 5 mg tablet Prolia 60 mg/mL subcutaneous syringe quetiapine 50 mg tablet tacrolimus 1 mg capsule, immediate-release Take 3 capsules twice a day by oral route. torsemide 20 mg tablet Take 1 tablet every day by oral route. Notes: Reviewed medicationbottles that patient brought in- sarah 01/20/22 Medications Administered None recorded. Vitals Height Weight BMI Blood Pressure 5 ft 4 in 130 lbs 22.3 kg/m2 132/86 mm[Hg] Results Lab Results None recorded. Allergies Code Code System Name Reaction Severity Onset 2551 RxNorm Ciprofloxacin Other Severe 08/07/2020 81400 RxNorm Levofloxacin Other Severe 08/07/2020 723 RxNorm Amoxicillin Rash 2189 RxNorm Cefoxitin Rash 2231 RxNorm Cephalexin Rash Cephalosporins Rash 2540 RxNorm Cilastatin Rash 3648 RxNorm Droperidol Rash 5690 RxNorm Imipenem Rash 6185 RxNorm Labetalol Rash 6470 RxNorm Lorazepam Rash 6754 RxNorm Meperidine Rash 6922 RxNorm Metronidazole Rash 7804 RxNorm Oxycodone Rash 8001 RxNorm Pentazocine Rash 8134 RxNorm Phenobarbital Rash 8785 RxNorm Propoxyphene Rash 49340 RxNorm Tobramycin Rash Notes: Some allergies listed in Docume nt: #[id number] could not be added to this patient's chart. Please review this docu ment and add these allergies to the patient's chart manually as needed. Problems Name Status Onset Date Source Vitamin D Deficiency Active 03/21/2019 Hyperlipidemia Active 03/21/2019 Anemia Active 03/21/2019 Degenerative Disorder of Macula Active 03/21/2019 Glaucoma Active 03/21/2019 Essential Hypertension Active 03/21/2019 Diverticulitis Active 03/21/2019 Secondary Hyperparathyroidism Active 03/21/2019 Osteoporosis Active 03/21/2019 Idiopathic Aseptic Necrosis of Bone Active 03/21/2019 Hyperglycemia Active 03/21/2019 Long-term Current Use of Drug Therapy Active 03/21/2019 Impaired Cognition Active 11/07/2019 Chronic Depression Active 07/01/[address] Segment Elevation Myocardial Infarction Active 07/19/2021 Aortic Valve Sclerosis Active 07/19/2021 Left Ventricular Systolic Dysfunction Active 07/19/2021 History of Renal Transplant Active 07/19/2021 Stented Coronary Artery Active 07/19/2021 Coronary Arteriosclerosis Active 07/21/2021 Mitral Valve Regurgitation Active 07/21/2021 Chronic Kidney Disease Stage 4 Active 07/21/2021 Vascular Dementia without Behavioral Disturbance Active 07/21/2021 Procedures Date Name Performed by 06/13/2021 Angiogram Information not avai lable Notes: Aortogram, left low er extremity angiogram, subsequent glueembolization of actively extravasating left superficial circumflexiliac artery branch. 06/12/2021 Heart Catheterization Information not av ailable Notes: Selective left mali nary artery angiogram, ultrasound-guided leftfemoral artery access, subacute LAD stent thrombosis requiringtreatment with aspiration thrombectomy, 2.5 x 15 millimeter NC balloonangio plasty, focal mid LAD Synerg y drug-eluting stent 2.5 x 8millimeter overlapping prior proximal-mid LAD stents and final 3.0 x12 millimeter NC balloon angioplasty. 06/05/2021 Heart Catheterization Information not av ailable Notes: Selective left and right coronary artery angiogram, left heartcatheterization, right femoral artery access under ultrasoundguidance, Synergy drug-eluting stent 2.5 x 38 millimeters and Synergydrug-elut ing stent to proximal-mid LA D in an overlapping fashion,right femoral artery hemostasis with Perclose. Transplant of Kidney Information not cynthia ilable Vaccine List None recorded. Social History Tobacco Smoking Status Never Smoker What type of diet are you following? REGULAR No meche: Poor appetite Do you have difficulty walking or climbing Y stairs? Are you able to walk? YESASSIST Notes: walker Are you currently employed? N Are you able to care for yourself? Y Have you processed blood or body fluids from an N Ebola virus disease patient without appropriate PPE? What is your relationship status? Notes : What is your level of alcohol consumption? None Do you have any pets? N Have you been to an area known to be high risk N for COVID-19? Are you deaf or do you have serious difficulty N hearing? Are you passively exposed to smoke? N Do you use your seat belt or car seat Y routinely? Do you or have you ever used any other forms of N tobacco or nicotine? Do you have difficulty dressing or bathing? Y Has tobacco cessation counseling been provided? N Are you blind or do you have difficulty seeing? N Do you have smoke and carbon monoxide detectors Y in your home? Do you have difficulty doing errands alone? Y In the 14 days before symptom onset, have you N had close contact with a person who is under investigation for COVID-19 while that person was ill? What was the date of your most recent tobacco 11/26/2021 screening? Do you reside in or have you traveled to an area where Ebola virus transmission is active? Do you have an advanced directive? N Do you use any illicit or recreational drugs? N What is your exercise level? None In the 14 days before symptom onset, have you N had close contact with a laboratory-confirmed COVID-19 while that case was ill? Have there been any changes to your family or N social situation? Live alone or with others? with others Are you sexually active? N Do you have difficulty concentrating, Y remembering or making decisions? What is your level of caffeine consumption? None Do you feel stressed (tense, restless, nervous, [id number] or anxious, or unable to sleep at night)? Family History Relation Problem Onset Age of Age Notes Father Hypertensive disorder (No Information) N/A (N o Notes) Father Cerebrovascular accident (No Information) N/A (No Notes) Father Polyp of colon (No Information) N/A NEEDED ADAN RGICAL RESECTION/ PART IAL COLECTOMY Father Carcinoma of prostate (No Information) N/A (N o Notes) Father Hyperlipidemia (No Information) N/A (No Notes ) Functional Status Do you have difficulty concentrating, remembering or makin g decisions?? Yes Do you have difficulty doing errands alone?? Yes Do you have difficulty dressing or bathing?? Yes Do you have difficulty walking or climbing stairs?? Yes Past Encounters 11/29/2021 Full Thickness Rotator Cuff Tear Turner Devine MD: [address] [facility] [place] [id number], Ph. 11/26/2021 Acute on Chronic Diastolic Heart Failure ; Coronary Arteriosclerosis; Mixed Hyperlipidemia; Essential Hypertension Cata Sanders DIRECTOR OF CONVENTION SERVICES: [address] [place] [address], [place] [id number], Ph. History of Present Illness Note: <div>R shoulder pain - getting worse and more limiting over time, has to use the L arm to lift the R arm, even to do simple things like eat. Hurts to lie on it, and is hard to dress and moving arm in abduction or internal rotation is nearly impossible. </div><div>Had a consult with Dr Brooks but after her second heart attack, they said they would not be interested at all in doingsurgery for at least several months afterwards. He also was not optimistic about the surgery, but she feels she has to at least try. </div> Review of Systems None recorded. Physical Exam None recorded.
--- OUTSIDE RECORDS SUMMARY | 2022-01-22 19:19 | External Medical Summary ---
:1955 Author Care Team Providers Name Role Phone ISAIAS HI MD Primary Care Provider [phone] CLEOPATRA MARTINEZ MD OTHER [phone] LEEANNE IVERSON TEMPORARY HELP AGENCY REFERRAL CLERK-C Game Producer [phone] Allergies Code Code System Name Reaction Severity Status Onset 2551 RxNorm Ciprofloxacin Other Severe Active 2019 07769 RxNorm Levofloxacin Other Severe Active 020 723 RxNorm Amoxicillin Rash Active 2189 RxNorm Cefoxitin Rash Active 2231 RxNorm Cephalexin Rash Active Cephalosporins Rash Active 2540 RxNorm Cilastatin Rash Active 3648 RxNorm Droperidol Rash Active 5690 RxNorm Imipenem Rash Active 6185 RxNorm Labetalol Rash Active 6470 RxNorm Lorazepam Rash Active 6754 RxNorm Meperidine Rash Active 6922 RxNorm Metronidazole Rash Active 7804 RxNorm Oxycodone Rash Active 8001 RxNorm Pentazocine Rash Active 8134 RxNorm Phenobarbital Rash Active 8785 RxNorm Propoxyphene Rash Active 32219 RxNorm Tobramycin Rash Active Notes: Some allergies listed in Docume nt: #[id number] could not be added to this patient's chart. Please review this docu ment and add these allergies to the patient's chart manually as needed. Medications Name Status Start Date Stop Date Adult Aspirin Regimen 81 mg tablet,delayed release Completed 08/17/2021 Take 1 tablet every day by oral route. allopurinol 100 mg tablet Completed 2021 allopurinol 300 mg tablet Completed 2021 Take 1 tablet every day by oral route. amlodipine 10 mg tablet Completed 06/09/20 21 amlodipine 5 mg tablet Completed 0 amoxicillin 250 mg-potassium clavulanate 125 mg Completed 09/10/2020 tablet amoxicillin 500 mg-potassium clavulanate 125 mg Completed 02/23/2021 tablet amoxicillin 875 mg-potassium clavulanate 125 mg Completed 05/27/2021 tablet aspirin Completed 01/20/2022 81 mg daily atorvastatin 40 mg tablet Completed 2021 Take 1 tablet every day by oral route. azithromycin 250 mg tablet Completed 03/28 blood sugar diagnostic strips Completed DIRECTED Brilinta 60 mg tablet Completed 09/17/2021 Take 1.5 tablets twice a day by oral route as directed for 30 d ays. Brilinta 90 mg tablet Completed 07/21/2021 Take 1 tablet twice a day by oral route. calcitonin (salmon) 200 unit/actuation nasal Completed 08/17/2021 spray calcitriol 0.25 mcg capsule Completed 07/01 cephalexin 500 mg capsule Completed 2021 cholecalciferol (vitamin D3) 125 mcg (5,000 unit) capsule Active Not available Take 1 capsule every day by oral route. ciprofloxacin 500 mg tablet Completed 10/31 clarithromycin 500 mg tablet Completed clindamycin HCl 300 mg capsule Completed 0 11/26/2021 clopidogrel 75 mg tablet Active Not cynthia ilable Take 1 tablet every day by oral route. colchicine 0.6 mg tablet Completed 022 diltiazem CD 120 mg capsule,extended release 24 Completed 02/23/2021 hr diltiazem CD 180 mg capsule,extended release 24 hr Completed 12/30/2019 Take 2 capsules every day by oral route. diltiazem ER 120 mg capsule,24 hr,extended Completed 08/17/2021 release DOK 100 mg capsule Completed 07/19/2021 donepezil 10 mg tablet Active Not avail able donepezil 5 mg tablet Completed 10/16/2020 doxycycline hyclate 100 mg tablet Completed 11/26/2019 duloxetine 30 mg capsule,delayed release Completed 10/16/2020 duloxetine 60 mg capsule,delayed release Completed 11/26/2021 Florastor 250 mg capsule Completed 021 Take 1 capsule twice a day by oral route. fluoxetine 10 mg capsule Completed galantamine 4 mg tablet Active Not avai lable hydralazine 50 mg tablet Completed 020 latanoprost (PF) 0.005 % eye drops Completed 07/01/2020 1 GTT LEFT EYE BEDTIME latanoprost 0.005 % eye drops Completed levofloxacin 250 mg tablet Completed 07/01 levothyroxine 100 mcg capsule Completed Take 1 capsule every day by oral route as directed. levothyroxine 100 mcg tablet Active Not available levothyroxine 100 mcg/mL intravenous solution Completed 03/28/2019 Inject 100 micrograms every day by intravenous route. losartan 50 mg tablet Active Not availa ble magnesium Active Not available magnesium 400 mg (as magnesium oxide) capsule Completed 11/26/2021 Take 1 capsule every day by oral route. metoclopramide 5 mg tablet Completed 09/10 metoprolol succinate ER 100 mg tablet,extended Completed 01/12/2022 release 24 hr metoprolol succinate ER 25 mg tablet,extended release 24 hr Acti ve Not available Take 1 tablet 3 times a day by oral route. metronidazole 500 mg tablet Completed 11/2019 multivitamin Completed 11/26/2021 1 TAB ORAL DAILY mycophenolate mofetil 250 mg capsule Active 08/17/2021 Not available Take 3 capsules twice a day by oral route as directed. Namenda 10 mg tablet Completed 11/21/2019 Take 1 tablet(s) twice a day by oral route. nitrofurantoin monohydrate/macrocrystals 100 mg Completed 10/16/2020 capsule omeprazole 20 mg capsule,delayed release Active Not available oxycodone-acetaminophen 10 mg-325 mg tablet Completed 07/01/2020 oxycodone-acetaminophen 5 mg-325 mg tablet Completed 09/10/2020 pamidronate 30 mg intravenous solution Completed 08/17/2021 Inject 90 mg every 3 months by intravenous route. potassium 99 mg tablet Completed Take 1 tablet every day by oral route as directed. prednisone 1 mg tablet Completed prednisone 20 mg tablet Completed 11/26/19 prednisone 5 mg tablet Active Not avail able Prolia 60 mg/mL subcutaneous syringe Active Not available promethazine 25 mg tablet Completed 2019 quetiapine 25 mg tablet Completed 09/10/20 quetiapine 50 mg tablet Active Not avai lable spironolactone 25 mg tablet Completed 08/30 Take 1 tablet every day by oral route. spironolactone 50 mg tablet Completed 07/01 tacrolimus 1 mg capsule, immediate-release Active Not available torsemide 20 mg tablet Active Not avail able tramadol 50 mg tablet Completed 07/01/2020 Vitamin D3 125 mcg (5,000 unit) tablet Completed 07/01/2020 Take 1 tablet every day by oral route. Xifaxan 550 mg tablet Completed 04/27/2021 Notes: Reviewed medicationbottles that patient brought in- [facility] 01/20/22 Problems Name Status Onset Date Source Vitamin D Deficiency Active 03/21/2019 Hyperlipidemia Active 03/21/2019 Anemia Active 03/21/2019 Degenerative Disorder of Macula Active 03/21/2019 Glaucoma Active 03/21/2019 Essential Hypertension Active 03/21/2019 Phlebitis and Thrombophlebitis Unknown 03/21/2019 Diverticulitis Active 03/21/2019 Chronic Mesangial Proliferative Glomerulonephritis Unknown 03/21/2019 Chronic Kidney Disease Stage 3 Unknown 03/21/2019 Secondary Hyperparathyroidism Active 03/21/2019 Urinary Tract Infectious Disease Unknown 03/21/2019 Osteoporosis Active 03/21/2019 Idiopathic Aseptic Necrosis of Bone Active 03/21/2019 Hyperglycemia Active 03/21/2019 Traumatic Dislocation of Joint of Finger Unknown 019 Long-term Current Use of Drug Therapy Active [...] Transplant of Kidney Information not cynthia ilable 09/16/2020 Oximetry Monitoring Overnight [facility] [address] [place] [address] (Work Place) 10/04/2020 Polysomnogram, Split Night [facility] [address] [facility] [address] [place] [address] (Work Place) 04/27/2021 CT, Arthrogram, Shoulder [facility] (Imaging) [address] [place] [address] (Work Place) 07/19/2021 Electrocardiogram [facility] [address] [place] [address] (Work Place) Results Lab Results Date Name Specimen Result Interpretation Description Value Range Status Address 01/20/2022 Pro BNP (Pro Plasma High Probnp 82140.0 <125.0 Final Pathologists' B-type pg/mL pg/mL Regional L ab: Natriuretic [address], Peptide), [place] n Serum or Plasma 01/20/2022 BMP, Serum Plasma Glucose,r 90 mg/dL 70-105 Fin al Pathologists' or Plasma andom mg/dL Regiona l Lab: [address] , [place] Plasma High Blood 54 mg/dL 8-23 Final Patholog ists' Urea mg/dL Regional L ab: Nitrogen [address], [place] Plasma High Creatinin 2.6 0.6-1.1 Final Patho logists' e mg/dL mg/dL Regional L ab: [address] , [place] Plasma Sodium 142 133-145 Final Patholog ists' mmol/L mmol/L Regional L ab: [address] , [place] Plasma Potassium 3.9 3.3-5.1 Final Patho logists' mmol/L mmol/L Regional L ab: [address] , [place] Plasma Chloride 106 96-108 Final Patholo gists' mmol/L mmol/L Regional L ab: [address] , [place] Plasma Low Carbon 19 22-30 Final Pathologi sts' Dioxide mmol/L mmol/L Regional Lab: [address] , [place] Plasma High Anion Gap 17.0 8.0-16. Final Patho logists' 0 Regional L ab: [address] , [place] Plasma Low Calcium 7.0 8.6-10. Final Patholo gists' mg/dL 4 mg/dL Regional Lab: [address] , [place] Plasma Glomerula 18 Final Pathol ogists' r Regional L ab: Filtration [address], Rate [place] 01/20/2022 Lipid Panel, Plasma Cholester 123 <200 Fin al Pathologists' Blood ol mg/dL mg/dL Regional L ab: [address] , [place] Plasma Triglycer 76 mg/dL <150 Final Path ologists' ides mg/dL Regional L ab: [address] , [place] Plasma LDL,calcu 57 mg/dL <100 Final Path ologists' lated mg/dL Regional L ab: [address] , [place] Plasma HDL 51 mg/dL >40 Final Patholog ists' Cholestero mg/dL Region al Lab: l [address] , [place] Plasma non-HDL 72 mg/dL <130 Final Pathol ogists' Cholestero mg/dL Region al Lab: l [address] , [place] 01/04/2022 Pro BNP (Pro Plasma High Probnp 43704.0 <125.0 Final Pathologists' B-type pg/mL pg/mL Regional L ab: Natriuretic [address], Peptide), [facility] n Serum or Plasma 01/04/2022 CMP, Serum Plasma Glucose,r 100 70-105 Final Pathologists' or Plasma andom mg/dL mg/dL Regiona l Lab: [address] , [place] Plasma High Blood 44 mg/dL 8-23 Final Patholog ists' Urea mg/dL Regional L ab: Nitrogen [address], [place] Plasma High Creatinin 2.3 0.6-1.1 Final Patho logists' e mg/dL mg/dL Regional L ab: [address] , [place] Plasma Sodium 135 133-145 Final Patholog ists' mmol/L mmol/L Regional L ab: [address] , [place] Plasma Potassium 4.1 3.3-5.1 Final Patho logists' mmol/L mmol/L Regional L ab: [address] , [place] Plasma Chloride 106 96-108 Final Patholo gists' mmol/L mmol/L Regional L ab: [address] , [place] Plasma Low Carbon 19 22-30 Final Pathologi sts' Dioxide mmol/L mmol/L Regional Lab: [address] , [place] Plasma Anion Gap 10.0 8.0-16. Final Patho logists' 0 Regional L ab: [address] , [place] Plasma Calcium 9.8 8.6-10. Final Patholo gists' mg/dL 4 mg/dL Regional Lab: [address] , [place] Plasma Total 6.5 5.9-8.4 Final Pathologi sts' Protein gm/dL gm/dL Regional Lab: [address] , [place] Plasma Albumin 3.4 3.2-5.2 Final Patholo gists' gm/dL gm/dL Regional L ab: [address] , [place] Plasma Globulin 3.1 2.2-3.7 Final Pathol ogists' gm/dL gm/dL Regional L ab: [address] , [place] Plasma Alb/glob 1.1 1.0-2.3 Final Pathol ogists' Ratio Regional L ab: [address] , [place] Plasma Bilirubin 0.2 0.1-1.0 Final Patho logists' ,total mg/dL mg/dL Regional L ab: [address] , [place] Plasma AST/SGOT 8 U/L <32 U/L Final Pathol ogists' Regional L ab: [address] , [place] Plasma ALT/SGPT <5 U/L <40 U/L Final Pathol ogists' Regional L ab: [address] , [place] Plasma Alkaline 64 U/L 39-117 Final Patholo gists' Phosphatas U/L Region al Lab: e [address] , [place] Plasma Glomerula 21 Final Pathol ogists' r Regional L ab: Filtration [address], Rate [place] 01/04/2022 Lipid Panel, Plasma Cholester 123 <200 Fin al Pathologists' Blood ol mg/dL mg/dL Regional L ab: [address] , [place] Plasma Triglycer 89 mg/dL <150 Final Path ologists' ides mg/dL Regional L ab: [address] , [place] Plasma LDL,calcu 59 mg/dL <100 Final Path ologists' lated mg/dL Regional L ab: [address] , [place] Plasma HDL 47 mg/dL >40 Final Patholog ists' Cholestero mg/dL Region al Lab: l [address] , [place] Plasma non-HDL 76 mg/dL <130 Final Pathol ogists' Cholestero mg/dL Region al Lab: l [address] , [place] 11/12/2021 BMP, Serum Plasma Glucose,r 103 70-105 Final Pathologists' or Plasma andom mg/dL mg/dL Regiona l Lab: [address] , [place] Plasma High Blood 57 mg/dL 8-23 Final Patholog ists' Urea mg/dL Regional L ab: Nitrogen [address], [place] Plasma High Creatinin 2.5 0.6-1.1 Final Patho logists' e mg/dL mg/dL Regional L ab: [address] , [place] Plasma Sodium 139 133-145 Final Patholog ists' mmol/L mmol/L Regional L ab: [address] , [place] Plasma Potassium 4.8 3.3-5.1 Final Patho logists' mmol/L mmol/L Regional L ab: [address] , [place] Plasma Chloride 106 96-108 Final Patholo gists' mmol/L mmol/L Regional L ab: [address] , [place] Plasma Carbon 22 22-30 Final Pathologi sts' Dioxide mmol/L mmol/L Regional Lab: [address] , [place] Plasma Anion Gap 11.0 8.0-16. Final Patho logists' 0 Regional L ab: [address] , [place] Plasma High Calcium 10.6 8.6-10. Final Patholo gists' mg/dL 4 mg/dL Regional Lab: [address] , [place] Plasma Glomerula 19 Final Pathol ogists' r Regional L ab: Filtration [address], Rate [place] 11/12/2021 Pro BNP (Pro Not High Nt Probnp 42889 Fin al [facility] - B-type Specified pg/mL [facility] [place] Only: Natriuretic [address], Peptide), [facility] n Serum or Plasma 09/01/2021 Pro BNP (Pro Plasma High Probnp 54743.0 <125.0 Final Pathologists' B-type pg/mL pg/mL Regional L ab: Natriuretic [address], Peptide), [facility] n Serum or Plasma 09/01/2021 BMP, Serum Plasma High Glucose,r 112 70-105 Final Pathologists' or Plasma andom mg/dL mg/dL Regiona l Lab: [address] , [place] Plasma High Blood 31 mg/dL 8-23 Final Patholog ists' Urea mg/dL Regional L ab: Nitrogen [address] , [place] Plasma High Creatinin 1.9 0.6-1.1 Final Patho logists' e mg/dL mg/dL Regional L ab: [address] , [place] Plasma Sodium 141 133-145 Final Patholog ists' mmol/L mmol/L Regional L ab: [address] , [place] Plasma Potassium 4.7 3.3-5.1 Final Patho logists' mmol/L mmol/L Regional L ab: [address] , [place] Plasma High Chloride 109 96-108 Final Patholo gists' mmol/L mmol/L Regional L ab: [address] , [place] Plasma Low Carbon 20 22-30 Final Pathologi sts' Dioxide mmol/L mmol/L Regional Lab: [address] , [place] Plasma Anion Gap 12.0 8.0-16. Final Patho logists' 0 Regional L ab: [address] , [place] Plasma Low Calcium 7.8 8.6-10. Final Patholo gists' mg/dL 4 mg/dL Regional Lab: [address] , [place] Plasma Glomerula 27 Final Pathol ogists' r Regional L ab: Filtration [address], Rate [place] 01/08/2020 Dhea, Serum No P athologists' observatio Region al Lab: n [address] , recorded. [facility] n 12/12/2019 Dhea-sulfate DHEA-S DHEA-S 42.82 9.40-24 Final Pathologists' , Serum (dehydroepi ug/dL 6 ug/dL Reg ional Lab: androsteron [address], e sulfate) [facility] on 11/28/2019 DHEA Serum or Dehydroep 171 () Final Pathologists' (Dehydropian plasma iandroster NG/dL NG/dL Regional Lab: drosterone) unconjugate one [address] , d [place] dehydroepia ndrosterone (DHEA) measurement (mass/volum e) Serum or Results Pathol ogists' plasma Regional L ab: unconjugate [address], d [place] dehydroepia ndrosterone (DHEA) measurement (mass/volum e) Past Encounters 01/20/2022 Acute on Chronic Diastolic Heart Failure ; Coronary Arteriosclerosis; Mixed Hyperlipidemia; Essential Hypertension Cata Sanders, TEMPORARY HELP AGENCY REFERRAL CLERK: [address] [place] [address], [place] [phone], Ph. 01/12/2022 Acute on Chronic Diastolic Heart Failure ; Coronary Arteriosclerosis; Mixed Hyperlipidemia; Essential Hypertension Cata Sanders, TEMPORARY HELP AGENCY REFERRAL CLERK: [address] [place] [address], [place] [phone], Ph. 01/05/2022 Gout; Right Rotator Cuff Syndrome Isaias Hi MD: [address] [facility], [facility] [address], [place] [phone], Ph. 11/29/2021 Full Thickness Rotator Cuff Tear Isaias Hi MD: [address] [facility], [facility] [address], [place] [phone], Ph. 11/26/2021 Acute on Chronic Diastolic Heart Failure ; Coronary Arteriosclerosis; Mixed Hyperlipidemia; Essential Hypertension Cata Sanders, TEMPORARY HELP AGENCY REFERRAL CLERK: [address] [place] [address], [place] [phone], Ph. 09/01/2021 Acute on Chronic Diastolic Heart Failure ; Coronary Arteriosclerosis; Mixed Hyperlipidemia; Essential Hypertension Anupam Burdick MD: [address] [place] [address] , [place] [phone], Ph. 08/17/2021 Acute on Chronic Diastolic Heart Failure ; Chronic Diastolic Heart Failure; Coronary Arteriosclerosis; Mixed Hyperlipidemia; Essential Hypertension Anupam Burdick MD: [address] [place] [address] , [place] [phone], Ph. 07/19/[address] Segment Elevation Myocardial In farction; Aortic Valve Sclerosis; Essential Hypertension; Hyperlipidemia; Left Ventricular Systolic Dysfunction; Stented Coronary Artery; Coronary Arteriosclerosis; Chronic Kidney Disease Stage 4 eLeanne Iverson, TEMPORARY HELP AGENCY REFERRAL CLERK: [address] [place] [address], [place] [phone], Ph. 06/09/[address] Segment Elevation Myocardial In farction Isaias Hi MD: [address] [facility], [address] [place] [phone], Ph. 05/27/2021 Diverticulitis of Colon Isaias Hi MD: [address] [facility] [place] [phone], Ph. 04/27/2021 Supraspinatus Tear Isaias Hi MD: [address] [place] [phone], Ph. 02/23/2021 Antibiotic-associated Diarrhea Isaias Hi MD: [address], [place] [phone], Ph. 02/03/2021 Intermittent Confusion Isaias Hi MD: [address] [place] [address], [place] [phone], Ph. 10/16/2020 Obstructive Sleep Apnea of Adult; Chroni c Depression; Essential Hypertension Isaias Hi MD: [address] [place] [phone], Ph. 09/10/2020 Chronic Depression; Impaired Cognition Isaias Hi MD: [address] [place] [address], [place] [phone], Ph. Social History Tobacco Smoking Status Never Smoker Vaccine List None recorded. Plan of Care Patient Instructions 1. Your dietary pattern is a modifiable risk factor for cardiovascular disease. You should aim for: a. A variety of fruits and vegetables, w hole grains, low-fat dairy products, skinless poultry and fish, nuts and legumes, and non-tropical vegetable oils. b. You should limit saturated fats, marlow s fat, sodium, red meat, sweets and sugar-sweetened beverages. c. You should eat NO MORE than 2,000 mg of sodium (salt) per day. Monitor your food guide label. The diet that best fits this pattern i s the DASH (Dietary Approaches to Stop Hypertension) eating plan as recommended by the [place] [employer]. 2. A regular pattern of physical activit y is also a modifiable risk factor for cardiovascular disease. Aim for 150 minutes of moderate physical activity, 75 minutes of vigorous aerobic activity, or an equal combination of both each week. 3. Weigh yourself daily at the same time with the same clothing. Your weight should not increase more than 2 pounds in one day. 4. Bring your blood pressure log and med ications with you to EVERY appointment please. 1. Your dietary pattern is a modifiable risk factor for cardiovascular disease. You should aim for: a. A variety of fruits and vegetables, w hole grains, low-fat dairy products, skinless poultry and fish, nuts and legumes, and non-tropical vegetable oils. b. You should limit saturated fats, marlow s fat, sodium, red meat, sweets and sugar-sweetened beverages. c. You should eat NO MORE than 2,000 mg of sodium (salt) per day. Monitor your food guide label. The diet that best fits this pattern i s the DASH (Dietary Approaches to Stop Hypertension) eating plan as recommended by the [place] [employer]. 2. A regular pattern of physical activit y is also a modifiable risk factor for cardiovascular disease. Aim for 150 minutes of moderate physical activity, 75 minutes of vigorous aerobic activity, or an equal combination of both each week. 3. Weigh yourself daily at the same time with the same clothing. Your weight should not increase more than 2 pounds in one day. 4. Bring your blood pressure log and med ications with you to EVERY appointment please. 1. Your dietary pattern is a modifiable risk factor for cardiovascular disease. You should aim for: a. A variety of fruits and vegetables, w hole grains, low-fat dairy products, skinless poultry and fish, nuts and legumes, and non-tropical vegetable oils. b. You should limit saturated fats, marlow s fat, sodium, red meat, sweets and sugar-sweetened beverages. c. You should eat NO MORE than 2,000 mg of sodium (salt) per day. Monitor your food guide label. The diet that best fits this pattern is the DASH (Dietary Approaches to Stop Hypertension) eating plan as recommended by the [place] [employer]. 2. A regular pattern of physical activit y is also a modifiable risk factor for cardiovascular disease. Aim for 150 minutes of moderate physical activity, 75 minutes of vigorous aerobic activity, or an equal combination of both each week. 3. Weigh yourself daily at the same time with the same clothing. Your weight should not increase more than 2 pounds in one day. 4. Bring your blood pressure log and med ications with you to EVERY appointment please. Reminders Provider Appointments None recorded. Lab None recorded. Referral None recorded. Procedures None recorded. Surgeries None recorded. Imaging None recorded. Vitals 01/20/2022 03:15PM Cata- Established Short Height Weight BMI Blood Pressure 5 ft 4 in 135.2 lbs 23.2 kg/m2 174/100 mm[Hg] 01/12/2022 03:00PM Cata- Established Long Height Weight BMI Blood Pressure 5 ft 4 in 137.4 lbs 23.6 kg/m2 168/92 mm[Hg] 01/05/2022 02:30PM Established Patient 30 Height Weight BMI Blood Pressure 5 ft 4 in 140 lbs 24 kg/m2 138/84 mm[Hg] 11/29/2021 03:30PM Established Patient 30 Height Weight BMI Blood Pressure 5 ft 4 in 130 lbs 22.3 kg/m2 132/86 mm[Hg] 11/26/2021 10:00AM Cata- New Cardio Patient HF Height Weight BMI Blood Pressure 5 ft 4 in 134.8 lbs 23.1 kg/m2 140/88 mm[Hg] 09/01/2021 04:45PM CARDIO-ESTABLISHED PATIENT Height Weight BMI Blood Pressure 5 ft 4 in 128.6 lbs 22.1 kg/m2 122/84 mm[Hg] 08/17/2021 03:15PM CARDIO-ESTABLISHED PATIENT Height Weight BMI Blood Pressure 5 ft 4 in 132.4 lbs 22.7 kg/m2 150/90 mm[Hg] 07/19/2021 10:00AM CARDIO-HOSPITAL FOLLOW UP Height Weight BMI Blood Pressure 5 ft 4 in 130 lbs 22.3 kg/m2 118/92 mm[Hg] 06/09/2021 04:00PM Established Patient 30 Height Weight BMI Blood Pressure 5 ft 4 in 143.4 lbs 24.6 kg/m2 110/60 mm[Hg] 05/27/2021 01:00PM Hospital Follow Up Height Weight BMI Blood Pressure 5 ft 4 in 148.8 lbs 25.5 kg/m2 146/82 mm[Hg] 04/27/2021 04:30PM Established Patient 30 Height Weight BMI Blood Pressure 5 ft 4 in 149.5 lbs 25.7 kg/m2 144/86 mm[Hg] 02/23/2021 04:00PM Established Patient 30 Height Blood Pressure 5 ft 4 in 146/84 mm[Hg] 02/03/2021 11:30AM Established Patient 30 Height Weight BMI Blood Pressure 5 ft 4 in 147 lbs 25.2 kg/m2 132/92 mm[Hg] 10/16/2020 10:30AM Established Patient 30 Height Weight BMI Blood Pressure 5 ft 4 in 136 lbs 23.3 kg/m2 124/80 mm[Hg] 09/10/2020 10:30AM Established Patient 15 Height Weight BMI Blood Pressure 5 ft 4 in 134 lbs 23 kg/m2 124/70 mm[Hg] 07/01/2020 02:30PM Established Patient 30 Height Weight BMI Blood Pressure 5 ft 4 in 143 lbs 24.5 kg/m2 142/70 mm[Hg] 11/26/2019 06:15PM Established Patient 30 Height Weight BMI Blood Pressure 5 ft 4 in 169 lbs 29 kg/m2 150/80 mm[Hg] 03/28/2019 09:30AM Established Patient 30 Height Weight BMI Blood Pressure 5 ft 4 in 171 lbs 29.4 kg/m2 130/82 mm[Hg]
--- OUTSIDE RECORDS SUMMARY | 2022-01-22 19:19 | External Medical Summary | Encounter Summary ---
:1955 Author Care Team Providers Name Role Phone Turner Devine MD Primary Care Provider [phone] Leeanne Lemus NICK SETTER-C [employer] Derrick Operator [phone] Saji Fortune MD OTHER [phone] Reason for Visit Shoulder Pain Assessment and Plan Assessment Note I have personally reviewed the medicati on, allergies, medical, social, surgical, and family history of this patient today. I also read Dr Goddard's notes and recommendations, as well as Dr Burdick/Diana Hunt [facility] assessment of her cardiovascula r status. Total time for visit today was 35 minute s. 20 minutes of this visit were spent in time with the patient and her discussing the options and examining her toe. The additional minutes were spent in activities including chart preparation, review of previous chart notes,review of notes from previous consultations, review of patient history, obtaining history, examination, ordering of additional med ications, charting, communication of res ults, and care coordination. 1. Gout L great toe. Increase fluids, cranberry juice or tabs, add meds til resolved colchicine 0.6 mg tablet allopurinol 300 mg tablet 2. Right rotator cuff syndrome this is a precarious and painful should er with poor healing potential and high risk surgical candidate. Strongly encouraged the spacer procedure and short arthroscopic method wiht less anaesthesia and higher likelihood of healing. Discussion Note: None recorded.Patient educational handouts: No information available. Plan of Care Reminders Provider Appointments Rachelle Macdonald 01/27/2022 Gabi Sanders NP 11:00AM Lab None recorded. Referral None recorded. Procedures [...] Notes: Reviewed [facility] 01/20/22 Medications Administered None recorded. Vitals Height Weight BMI Blood Pressure 5 ft 4 in 140 lbs 24 kg/m2 138/84 mm[Hg] Results Lab Results None recorded. Allergies Code Code System Name Reaction Severity Onset 2551 RxNorm Ciprofloxacin Other Severe 08/07/2020 45655 RxNorm Levofloxacin Other Severe 08/07/2020 723 RxNorm Amoxicillin Rash 2189 RxNorm Cefoxitin Rash 2231 RxNorm Cephalexin Rash Cephalosporins Rash 2540 RxNorm Cilastatin Rash 3648 RxNorm Droperidol Rash 5690 RxNorm Imipenem Rash 6185 RxNorm Labetalol Rash 6470 RxNorm Lorazepam Rash 6754 RxNorm Meperidine Rash 6922 RxNorm Metronidazole Rash 7804 RxNorm Oxycodone Rash 8001 RxNorm Pentazocine Rash 8134 RxNorm Phenobarbital Rash 8785 RxNorm Propoxyphene Rash 51692 RxNorm Tobramycin Rash Notes: Some allergies listed in Docume nt: #[id number] could not be added to this patient's [...] Do you feel stressed (tense, restless, nervous, [id number] or anxious, or unable to sleep at [...] walking or climbing stairs?? Yes Past Encounters 01/05/2022 Gout; Right Rotator Cuff Syndrome Turner Devine MD: [address] [facility], [address], [place] [address], Ph. History of Present Illness Note: <div>Wanted to discuss Dr Goddard 's options for surgical repair. He has offered a cushioning procedure that puts a spacer in the shoulder through an arthroscopic method, taking about 20-30 minutes and not requiring bone healing or muscle tendon repair, vs a total shoulder ... We all agree that the more complicated and invasive procedure has a lto more risks and less likelihood of working becuase of the osteoporosis and bone health, risk of infection and kidney/CVS disease that she has</div><div>2. L great toe - DIP - red, swollen, tender, warm off and on for about 2mos.Hurts to weight bear, even to have covers on it .... Has known risk factors for gout, and FH of the same. </div>Review of Systems: ROS as noted in the HPI Review of Systems Comprehensive General Adult ROS Reported By: Patient Eyes: Eyes: wears glasses/contact lenses Notes: <div>_pts Carlos want s to review if she can survive a surgery </div> Physical Exam General Adult Exam- Male, Ca rdiology Exam Reported By: Patient Constitutional: General Appearance: well-nou rished, well-developed. Level of Distress: NAD, chronically i ll. Ambulation: ambulating normally Neck: Neck: no JVD Lungs: Respiratory effort: no dyspn ea. Auscultation: good air movement, CTA except as noted, no whee zing, no rales/crackles, no rhonchi Cardiovascular: Heart Auscultation: RRR, nor mal S1, normal S2, no murmurs, no rubs, no gallops; normal S1, S2, no murmurs Abdomen: Inspection and Palpation: so ft, non-distended, no tenderness, no guarding, no rebound tendern ess Musculoskeletal:: Motor Strength and Tone: ; w alks with a cane for support, antalgic gait,. Joints, Bones, and Mu scles: limited ROM, contracture, malalignment, tenderness. Ex tremities: no edema, varicosities. Inspection: joint tenderness , joint swelling, erythema Peripheral Pulses: Radial Pulse: normal. Process Tech ior Tibialis Pulse normal
--- OUTSIDE RECORDS SUMMARY | 2022-01-22 19:19 | External Medical Summary | Encounter Summary ---
:1955 Author Care Team Providers Name Role Phone Turner Devine MD Primary Care Provider [phone] Leeanne Lemus FIRESETTER-C Hot Repairman [phone] Saji Fortune MD OTHER [phone] Reason for Visit edema; 2 MTH FOLLOW-UP Assessment and Plan 1. Acute on chronic diastolic heart teodora lure Mildly reduced LV Function EF 45-50% (pr eviously lower) Probable RVSP 60 mm HG NYHA Class IIa AHA/ACC Stage C Heart Smart: Offered. Not interested at this time. KAYLA: low-risk per STOPBANG 2000mL fluid restriction 2000 mg sodium restriction Cr 2.4 Meds: BALJINDER/ARB: losartan Beta-federico: metoprolol Loop diuretic: Torsemide Pt has continue to do well on BB dose. S he is a bit fluid overloaded this week. BNP elevated. We will increase her torsemide dose for the next week. F/U one week with BMP, BNP BMP, serum or plasma pro BNP (pro B-type natriuretic pepti de), serum or plasma BMP, serum or plasma pro BNP (pro B-type natriuretic pepti de), serum or plasma 2. Coronary arteriosclerosis Acute anterior STEMI. Complicated by st ent thrombosis 7 days later due to medical noncompliance (not taking plavix). Continue ASA, plavix 3. Mixed hyperlipidemia Restarted on atorvastatin 40 mg for sec ondary prevention. lipid panel, blood 4. Essential hypertension Reasonable. She will keep a log and rosalinda ng to the next visit. Discussion Note 1. Torsemide 40 mg for the next week 2. F/U 1 week with BMP, BNP 3. Discussed the importance of medicaito n compliance. It appears the patient's dementia may be progressing as she is forgetful regarding medicine. A lengthy discussion took place with her family member on utilizing a team-driven aproach to fi lling her pill box weekly as it again appears she is not taking all of he medications as prescribed. Patient educational handouts: No information available. Plan of Care Patient Instructions 1. Your [...] Hypertension) eating plan as recommended by the [place] [employer]. 2. A regular pattern of [...] to EVERY appointment please. Reminders Provider Appointments Rachelle Macdonald 01/27/2022 Gabi Sanders NP 11:00AM Lab BMP, Serum or Plasma 01/12/2022 [facility] Only Pro BNP (Pro B-type 01/12/2022 [facility] Natriuretic Peptide), Serum Only or Plasma BMP, Serum or Plasma 01/16/2022 [facility] Only Pro BNP (Pro B-type 01/16/20[facility] Natriuretic Peptide), Serum Only or Plasma Lipid Panel, Blood 01/16/2022 [facility] Only Referral None recorded. Procedures None recorded. Surgeries [...] Notes: Reviewed medicationbottles that patient brought in- [facility] 01/20/22 Medications Administered None recorded. Vitals Height Weight BMI Blood Pressure 5 ft 4 in 137.4 lbs 23.6 kg/m2 168/92 mm[Hg] Results Lab Results Date Name Specimen Result Interpretation Description Value Range Status Address 01/20/2022 Pro BNP (Pro Plasma High Probnp 81378.0 <125.0 Final Pathologists' B-type pg/mL pg/mL [facility]: Natriuretic [address], Peptide), Fidel n Serum or Plasma 01/20/2022 BMP, Serum Plasma Glucose,rando 90 mg/dL 70-105 Final Pathologists' or Plasma m mg/dL Region[facility] l Lab: [address] [place] Plasma High Blood Urea 54 mg/dL 8-23 Final Pat hologists' Nitrogen mg/dL Regional Lab: [address] [place] Plasma High Creatinine 2.6 0.6-1.1 Final Path ologists' mg/dL mg/dL Regional [facility]: [address] [place] Plasma Sodium 142 133-145 Final Patholog ists' mmol/L mmol/L Regional [facility]: [address] [place] Plasma Potassium 3.9 3.3-5.1 Final Patho logists' mmol/L mmol/L Regional [facility]: [address] [place] Plasma Chloride 106 96-108 Final Patholo gists' mmol/L mmol/L Regional [facility]: [address] [place] Plasma Low Carbon 19 22-30 Final Pathologi sts' Dioxide mmol/L mmol/L Regional Lab: [address] [place] Plasma High Anion Gap 17.0 8.0-16. Final Patho logists' 0 Regional L [facility]: [address] [place] Plasma Low Calcium 7.0 8.6-10. Final Patholo gists' mg/dL 4 mg/dL Regional Lab: [address] [place] [address] Plasma Glomerular 18 Final Patho logists' Filtration Region al Lab: Rate [address] [place] [address] 01/20/2022 Lipid Panel, Plasma Cholesterol 123 <200 F inal Pathologists' Blood mg/dL mg/dL Regional [facility]: [address] [place] [address] Plasma Triglycerides 76 mg/dL <150 Final Pathologists' mg/dL Regional [facility]: [address] [place] [address] Plasma LDL,calculate 57 mg/dL <100 Final Pathologists' d mg/dL Regional [facility]: [address] [place] [address] Plasma HDL 51 mg/dL >40 Final Patholog ists' Cholesterol mg/dL Regio nal Lab: [address] [place] [address] Plasma non-HDL 72 mg/dL <130 Final Pathol ogists' Cholesterol mg/dL Regio nal Lab: [address] [place] [address] Allergies Code Code System Name Reaction Severity Onset 2551 RxNorm Ciprofloxacin Other Severe 08/07/2020 63353 RxNorm Levofloxacin Other Severe 08/07/2020 723 RxNorm Amoxicillin Rash 2189 RxNorm Cefoxitin Rash 2231 RxNorm Cephalexin Rash Cephalosporins Rash 2540 RxNorm Cilastatin Rash 3648 RxNorm Droperidol Rash 5690 RxNorm Imipenem Rash 6185 RxNorm Labetalol Rash 6470 RxNorm Lorazepam Rash 6754 RxNorm Meperidine Rash 6922 RxNorm Metronidazole Rash 7804 RxNorm Oxycodone Rash 8001 RxNorm Pentazocine Rash 8134 RxNorm Phenobarbital Rash 8785 RxNorm Propoxyphene Rash 55914 RxNorm Tobramycin Rash Notes: Some allergies listed in Docume nt: #[id number] could not be added to this patient's [...] Do you feel stressed (tense, restless, nervous, [id number] or anxious, or unable to sleep at [...] walking or climbing stairs?? Yes Past Encounters 01/12/2022 Acute on Chronic Diastolic Heart Failure ; Coronary Arteriosclerosis; Mixed Hyperlipidemia; Essential Hypertension Cata Sanders, FIRESETTER: [address] [place] [address], [place] [address], Ph. 01/05/2022 Gout; Right Rotator Cuff Syndrome Turner Devine MD: [address] [facility], [address], [place] [address], Ph. History of Present Illness Note: <div>Wendy returns today and denies chest pain, SOB, MAYORGA, fatigue, palpitations, orthopnea, dizziness, and edema. </div><div>
</div><div>Last Visit</div><div>1. Agree with torsemide dose. Take additional 10 mg for weight increase more than 2 lbs in 24H </div><div>2. F/U in 8 weeks with BNP, CMP, lipids </div><div>
&lt ;/div><div>CARDIAC HISTORY and MEDICAL HISTORY </div><div>Renal transplant -- creatinine 2.0 </div><div>Anterior STEMI 06/05/21. 2.5x38 and 2.5x28 Synergy </div><div>Acute stent thrombosis 06/12/21. Aspiration thrombectomy. 2.5x8 Synergy to mid LAD </div><div>Groin complications -- required embolization. </div><div>Chronic systolic anddiastolic CHF. </div><div>
</div><div>Data review: </div><div>I have personally reviewed </div><div>Cath 06/05/21. Acute anterior STEMI. </div><div>Echo EF 45%. PASP 60 </div><div>
</div><div>Labs: </ div><div>
</div><div>3/12</div><div>Cr 2.4</div><div>Na 135</div><div>K 3.9</div><div>HCT 29.2</div><div>HBG 8.9 </div><div>
</div><div>
</div>&l t;div>3/8</div><div>bnp 29780</div><div>LDL 59</div><div>HDL 47</div><div& gt;
</div><div>Cr 2.5</div><div>Na 139</div><div>K 4.8</div><div>BNP 90712</div><div>
</div><div>Cr 2.0 </div ><div>HCT 29 </div><div>AST 14</div><div>
</div><d iv>
</div><div>
</div><div><br&g t;</div><div >
</div><div>
</div><div>
</div><div>
</div>Review of Systems: ROS as noted in the HPI Review of Systems Brief Cardiology ROS Reported By: Patient Cardio Basic: Cardiovascular Symptoms: no chest pressure, no lightheadedness, no chest pain, no dyspnea on ex ertion, no fatigue, no syncope, no orthopnea, no palpitations, no PND, no shortness of breath, no claudication, leg edema; [place] at leg edema Physical Exam Notes: <div>General. No acute distr ess. Conversant. </div><div>HEENT. Normocephalic atraumatic. Mucous membranes moist. Sclera anicteric. Oropharynx clear. </div><div>Chest. Clear. Nor mal effort. Symmetric. </div><div>Cardiovascular. Normal JVP. Normal S1 and S2 . No gallops or rubs. I/ systolic crescendo-decrescendo murmur . </div><div>Abdomen. Normal bowel sounds. Soft nontender nondistended. No a ppreciated hepatosplenomegaly. </div><div>Extremities. No c yanosis. No clubbing. No edema. </div><div>Skin. Warm and dry. No rashes. </d iv><div>Neurological. Alert and oriented x3. Nonfocal. No asymmetry is no ivan. </div><div>Psychiatric. Affect and tone are normal.</div>
--- OUTSIDE RECORDS SUMMARY | 2022-01-22 19:19 | External Medical Summary ---
:1955 Author Care Team Providers Name Role Phone ISAIAS HI MD Primary Care Provider [phone] CLEOPATRA MARTINEZ MD OTHER [phone] LEEANNE IVERSON FIELD ACCOUNT MANAGER-C Biological Aide [phone] Allergies Code Code System Name Reaction Severity Status Onset 2551 RxNorm Ciprofloxacin Other Severe Active 2019 09272 RxNorm Levofloxacin Other Severe Active 020 723 [...] Rash Active 8785 RxNorm Propoxyphene Rash Active 85336 RxNorm Tobramycin Rash Active Notes: Some allergies listed in Docume nt: #[id number] could not be added to this patient's [...] Notes: Reviewed medicationbottles that patient brought in- [facility] 01/20/22 Problems Name Status Onset Date [...] ilable 09/16/2020 Oximetry Monitoring Overnight [facility] [address] [place] [address] (Work Place) 10/04/2020 Polysomnogram, Split Night [facility] [address] [facility] [address] [place] [address] (Work Place) 04/27/2021 CT, Arthrogram, Shoulder [facility] (Imaging) [address] [place] [address] (Work Place) 07/19/2021 Electrocardiogram [facility] [address] [place] [address] (Work Place) Results Lab Results Date Name Specimen Result Interpretation Description Value Range Status Address 01/20/2022 Pro BNP (Pro Plasma High Probnp 25326.0 <125.0 Final Pathologists' B-type pg/mL pg/mL Regional L ab: Natriuretic [address], Peptide), [place] n Serum or Plasma 01/20/2022 BMP, Serum Plasma Glucose,r 90 mg/dL 70-105 Fin al Pathologists' or Plasma andom mg/dL Regiona l Lab: [address] , [place] Plasma High Blood 54 mg/dL 8-23 Final Patholog ists' Urea mg/dL Regional L ab: Nitrogen [address], [place] Plasma High Creatinin 2.6 0.6-1.1 Final Patho logists' e mg/dL mg/dL Regional L ab: [address] , [place] Plasma Sodium 142 133-145 Final Patholog ists' mmol/L mmol/L Regional L ab: [address] , [place] Plasma Potassium 3.9 3.3-5.1 Final Patho logists' mmol/L mmol/L Regional L ab: [address] , [place] Plasma Chloride 106 96-108 Final Patholo gists' mmol/L mmol/L Regional L ab: [address] , [place] Plasma Low Carbon 19 22-30 Final Pathologi sts' Dioxide mmol/L mmol/L Regional Lab: [address] , [place] Plasma High Anion Gap 17.0 8.0-16. Final Patho logists' 0 Regional L ab: [address] , [place] Plasma Low Calcium 7.0 8.6-10. Final Patholo gists' mg/dL 4 mg/dL Regional Lab: [address] , [place] Plasma Glomerula 18 Final Pathol ogists' r Regional L ab: Filtration [address], Rate [place] 01/20/2022 Lipid Panel, Plasma Cholester 123 <200 Fin al Pathologists' Blood ol mg/dL mg/dL Regional L ab: [address] , [place] Plasma Triglycer 76 mg/dL <150 Final Path ologists' ides mg/dL Regional L ab: [address] , [place] Plasma LDL,calcu 57 mg/dL <100 Final Path ologists' lated mg/dL Regional L ab: [address] , [place] Plasma HDL 51 mg/dL >40 Final Patholog ists' Cholestero mg/dL Region al Lab: l [address] , [place] Plasma non-HDL 72 mg/dL <130 Final Pathol ogists' Cholestero mg/dL Region al Lab: l [address] , [place] 01/04/2022 Pro BNP (Pro Plasma High Probnp 87040.0 <125.0 Final Pathologists' B-type pg/mL pg/mL Regional L ab: Natriuretic [address], Peptide), [facility] n Serum or Plasma 01/04/2022 CMP, Serum Plasma Glucose,r 100 70-105 Final Pathologists' or Plasma andom mg/dL mg/dL Regiona l Lab: [address] , [place] Plasma High Blood 44 mg/dL 8-23 Final Patholog ists' Urea mg/dL Regional L ab: Nitrogen [address], [place] Plasma High Creatinin 2.3 0.6-1.1 Final Patho logists' e mg/dL mg/dL Regional L ab: [address] , [place] Plasma Sodium 135 133-145 Final Patholog ists' mmol/L mmol/L Regional L ab: [address] , [place] Plasma Potassium 4.1 3.3-5.1 Final Patho logists' mmol/L mmol/L Regional L ab: [address] , [place] Plasma Chloride 106 96-108 Final Patholo gists' mmol/L mmol/L Regional L ab: [address] , [place] Plasma Low Carbon 19 22-30 Final Pathologi sts' Dioxide mmol/L mmol/L Regional Lab: [address] , [place] Plasma Anion Gap 10.0 8.0-16. Final Patho logists' 0 Regional L ab: [address] , [place] Plasma Calcium 9.8 8.6-10. Final Patholo gists' mg/dL 4 mg/dL Regional Lab: [address] , [place] Plasma Total 6.5 5.9-8.4 Final Pathologi sts' Protein gm/dL gm/dL Regional Lab: [address] , [place] Plasma Albumin 3.4 3.2-5.2 Final Patholo gists' gm/dL gm/dL Regional L ab: [address] , [place] Plasma Globulin 3.1 2.2-3.7 Final Pathol ogists' gm/dL gm/dL Regional L ab: [address] , [place] Plasma Alb/glob 1.1 1.0-2.3 Final Pathol ogists' Ratio Regional L ab: [address] , [place] Plasma Bilirubin 0.2 0.1-1.0 Final Patho logists' ,total mg/dL mg/dL Regional L ab: [address] , [place] Plasma AST/SGOT 8 U/L <32 U/L Final Pathol ogists' Regional L ab: [address] , [place] Plasma ALT/SGPT <5 U/L <40 U/L Final Pathol ogists' Regional L ab: [address] , [place] Plasma Alkaline 64 U/L 39-117 Final Patholo gists' Phosphatas U/L Region al Lab: e [address] , [place] Plasma Glomerula 21 Final Pathol ogists' r Regional L ab: Filtration [address], Rate [place] 01/04/2022 Lipid Panel, Plasma Cholester 123 <200 Fin al Pathologists' Blood ol mg/dL mg/dL Regional L ab: [address] , [place] Plasma Triglycer 89 mg/dL <150 Final Path ologists' ides mg/dL Regional L ab: [address] , [place] Plasma LDL,calcu 59 mg/dL <100 Final Path ologists' lated mg/dL Regional L ab: [address] , [place] Plasma HDL 47 mg/dL >40 Final Patholog ists' Cholestero mg/dL Region al Lab: l [address] , [place] Plasma non-HDL 76 mg/dL <130 Final Pathol ogists' Cholestero mg/dL Region al Lab: l [address] , [place] 11/12/2021 BMP, Serum Plasma Glucose,r 103 70-105 Final Pathologists' or Plasma andom mg/dL mg/dL Regiona l Lab: [address] , [place] Plasma High Blood 57 mg/dL 8-23 Final Patholog ists' Urea mg/dL Regional L ab: Nitrogen [address], [place] Plasma High Creatinin 2.5 0.6-1.1 Final Patho logists' e mg/dL mg/dL Regional L ab: [address] , [place] Plasma Sodium 139 133-145 Final Patholog ists' mmol/L mmol/L Regional L ab: [address] , [place] Plasma Potassium 4.8 3.3-5.1 Final Patho logists' mmol/L mmol/L Regional L ab: [address] , [place] Plasma Chloride 106 96-108 Final Patholo gists' mmol/L mmol/L Regional L ab: [address] , [place] Plasma Carbon 22 22-30 Final Pathologi sts' Dioxide mmol/L mmol/L Regional Lab: [address] , [place] Plasma Anion Gap 11.0 8.0-16. Final Patho logists' 0 Regional L ab: [address] , [place] Plasma High Calcium 10.6 8.6-10. Final Patholo gists' mg/dL 4 mg/dL Regional Lab: [address] , [place] Plasma Glomerula 19 Final Pathol ogists' r Regional L ab: Filtration [address], Rate [place] 11/12/2021 Pro BNP (Pro Not High Nt Probnp 78013 Fin al [facility] - B-type Specified pg/mL [facility] [place] Only: Natriuretic [address], Peptide), [facility] n Serum or Plasma 09/01/2021 Pro BNP (Pro Plasma High Probnp 73902.0 <125.0 Final Pathologists' B-type pg/mL pg/mL Regional L ab: Natriuretic [address], Peptide), [facility] n Serum or Plasma 09/01/2021 BMP, Serum Plasma High Glucose,r 112 70-105 Final Pathologists' or Plasma andom mg/dL mg/dL Regiona l Lab: [address] , [place] Plasma High Blood 31 mg/dL 8-23 Final Patholog ists' Urea mg/dL Regional L ab: Nitrogen [address] , [place] Plasma High Creatinin 1.9 0.6-1.1 Final Patho logists' e mg/dL mg/dL Regional L ab: [address] , [place] Plasma Sodium 141 133-145 Final Patholog ists' mmol/L mmol/L Regional L ab: [address] , [place] Plasma Potassium 4.7 3.3-5.1 Final Patho logists' mmol/L mmol/L Regional L ab: [address] , [place] Plasma High Chloride 109 96-108 Final Patholo gists' mmol/L mmol/L Regional L ab: [address] , [place] Plasma Low Carbon 20 22-30 Final Pathologi sts' Dioxide mmol/L mmol/L Regional Lab: [address] , [place] Plasma Anion Gap 12.0 8.0-16. Final Patho logists' 0 Regional L ab: [address] , [place] Plasma Low Calcium 7.8 8.6-10. Final Patholo gists' mg/dL 4 mg/dL Regional Lab: [address] , [place] Plasma Glomerula 27 Final Pathol ogists' r Regional L ab: Filtration [address], Rate [place] 01/08/2020 Dhea, Serum No P athologists' observatio Region al Lab: n [address] , recorded. [facility] n 12/12/2019 Dhea-sulfate DHEA-S DHEA-S 42.82 9.40-24 Final Pathologists' , Serum (dehydroepi ug/dL 6 ug/dL Reg ional Lab: androsteron [address], e sulfate) [facility] on 11/28/2019 DHEA Serum or Dehydroep 171 () Final Pathologists' (Dehydropian plasma iandroster NG/dL NG/dL Regional Lab: drosterone) unconjugate one [address] , d [place] dehydroepia ndrosterone (DHEA) measurement (mass/volum e) Serum or Results Pathol ogists' plasma Regional L ab: unconjugate [address], d [place] dehydroepia ndrosterone (DHEA) measurement (mass/volum e) Past Encounters 01/20/2022 Acute on Chronic Diastolic Heart Failure ; Coronary Arteriosclerosis; Mixed Hyperlipidemia; Essential Hypertension Cata Sanders, FIELD ACCOUNT MANAGER: [address] [place] [address], [place] [address], Ph. 01/12/2022 Acute on Chronic Diastolic Heart Failure ; Coronary Arteriosclerosis; Mixed Hyperlipidemia; Essential Hypertension Cata Sanders, FIELD ACCOUNT MANAGER: [address] [place] [address], [place] [address], Ph. 01/05/2022 Gout; Right Rotator Cuff Syndrome Isaias Hi MD: [address] [facility] [address], [place] [address], Ph. 11/29/2021 Full Thickness Rotator Cuff Tear Isaias Hi MD: [address] [facility] [address], [place] [address], Ph. 11/26/2021 Acute on Chronic Diastolic Heart Failure ; Coronary Arteriosclerosis; Mixed Hyperlipidemia; Essential Hypertension Cata Sanders, FIELD ACCOUNT MANAGER: [address] [place] [address], [place] [address], Ph. 09/01/2021 Acute on Chronic Diastolic Heart Failure ; Coronary Arteriosclerosis; Mixed Hyperlipidemia; Essential Hypertension Anupam Burdick MD: [address] [place] [address] , [place] [address], Ph. 08/17/2021 Acute on Chronic Diastolic Heart Failure ; Chronic Diastolic Heart Failure; Coronary Arteriosclerosis; Mixed Hyperlipidemia; Essential Hypertension Anupam Burdick MD: [address] [place] [address] , [place] [address], Ph. 07/19/[address] Segment Elevation Myocardial In farction; Aortic Valve Sclerosis; Essential Hypertension; Hyperlipidemia; Left Ventricular Systolic Dysfunction; Stented Coronary Artery; Coronary Arteriosclerosis; Chronic Kidney Disease Stage 4 Leeanne Iverson, FIELD ACCOUNT MANAGER: [address] [place] [address], [place] [phone], Ph. 06/09/[address] Segment Elevation Myocardial In farction Isaias Hi MD: [address] [facility], [address] [place] [address], Ph. 05/27/2021 Diverticulitis of Colon Isaias Hi MD: [address] [facility] [place] [address], Ph. 04/27/2021 Supraspinatus Tear Isaias Hi MD: [address] [place] [address], Ph. 02/23/2021 Antibiotic-associated Diarrhea Isaias Hi MD: [address], [place] [address], Ph. 02/03/2021 Intermittent Confusion Isaias Hi MD: [address] [place] [address], [place] [phone], Ph. 10/16/2020 Obstructive Sleep Apnea of Adult; Chroni c Depression; Essential Hypertension Isaias Hi MD: [address] [place] [address], Ph. 09/10/2020 Chronic Depression; Impaired Cognition Isaias Hi MD: [address] [place] [address], [place] [address], Ph. Social History Tobacco Smoking Status Never [...] Hypertension) eating plan as recommended by the [place] [employer]. 2. A regular pattern of [...] Hypertension) eating plan as recommended by the [place]. 2. A regular pattern of [...] Hypertension) eating plan as recommended by the [place] [employer]. 2. A regular pattern of [...]
--- OUTSIDE RECORDS SUMMARY | 2022-01-22 19:19 | External Medical Summary | Encounter Summary ---
:1955 Author Care Team Providers Name Role Phone Turner Devine MD Primary Care Provider [phone] Leeanne Lemus DRAFTER LANDSCAPE-C Customer Business Manager [phone] Saji Fortune MD OTHER [phone] Reason for Visit 1 WK FOLLOW-UP No new labs since 01/08 as of 01/19, ask p t Assessment and Plan 1. Acute on chronic diastolic heart teodora lure Mildly reduced LV Function EF 45-50% (pr eviously lower) Probable RVSP 60 mm HG NYHA Class IIa AHA/ACC Stage C Heart Smart: Offered. Not interested at this time. KAYLA: low-risk per ST[employer] 2000mL fluid restriction 2000 mg sodium restriction Cr 2.4 Meds: BALJINDER/ARB: losartan Beta-federico: metoprolol Loop diuretic: Torsemide She is a bit fluid overloaded still as she did not increase her diuretic. BNP elevated. We will increase her torsemide dose for the next week. F/U one week with BMP, BNP BMP, serum or plasma pro BNP (pro B-type natriuretic pepti de), serum or plasma 2. Coronary arteriosclerosis Acute anterior STEMI. Complicated by st ent thrombosis 7 days later due to medical noncompliance (not taking plavix). Continue ASA, plavix Apparently she had not been taking her p lavix as she ran out. Per pill box assessment today. clopidogrel 75 mg tablet 3. Mixed hyperlipidemia Restarted on atorvastatin 40 mg for sec ondary prevention. LDL 57. Goal < 70 for secondary prevention. 4. Essential hypertension Reasonable. She will keep a log and rosalinda ng to the next visit. Discussion Note 1. Refill Plavix 2. Plan for progressing dementia to obta in in-home help as qualified per Medicare 3. Trosemide 40 mg daily for the next we ek 4. F/U one week with BMP, BNP 5. F/U on missing mycophenolate from pil l box with nephrology. Patient educational handouts: No information available. Plan [...] Hypertension) eating plan as recommended by the [place] [employer]. 2. A regular pattern of [...] NP 11:00AM Lab BMP, Serum or Plasma 01/20/2022 [facility] Only Pro BNP (Pro B-type 01/20/[facility] Natriuretic Peptide), Serum Only or Plasma Referral None recorded. Procedures None recorded. Surgeries [...] Notes: Reviewed medicationbottles that patient brought in- [facility] 01/20/22 Medications Administered None recorded. Vitals Height Weight BMI Blood Pressure 5 ft 4 in 135.2 lbs 23.2 kg/m2 174/100 mm[Hg] Results Lab Results None recorded. Allergies Code Code System Name Reaction Severity Onset 2551 RxNorm Ciprofloxacin Other Severe 08/07/2020 33507 RxNorm Levofloxacin Other Severe 08/07/2020 723 RxNorm Amoxicillin Rash 2189 RxNorm Cefoxitin Rash 2231 RxNorm Cephalexin Rash Cephalosporins Rash 2540 RxNorm Cilastatin Rash 3648 RxNorm Droperidol Rash 5690 RxNorm Imipenem Rash 6185 RxNorm Labetalol Rash 6470 RxNorm Lorazepam Rash 6754 RxNorm Meperidine Rash 6922 RxNorm Metronidazole Rash 7804 RxNorm Oxycodone Rash 8001 RxNorm Pentazocine Rash 8134 RxNorm Phenobarbital Rash 8785 RxNorm Propoxyphene Rash 23317 RxNorm Tobramycin Rash Notes: Some allergies listed in Docume nt: #[id number] could not be added to this patient's [...] Do you feel stressed (tense, restless, nervous, [id number] or anxious, or unable to sleep at [...] walking or climbing stairs?? Yes Past Encounters 01/20/2022 Acute on Chronic Diastolic Heart Failure ; Coronary Arteriosclerosis; Mixed Hyperlipidemia; Essential Hypertension Cata Sanders DRAFTER LANDSCAPE: [address] [place] [address], [place] [phone], Ph. 01/12/2022 Acute on Chronic Diastolic Heart Failure ; Coronary Arteriosclerosis; Mixed Hyperlipidemia; Essential Hypertension Cata Sanders DRAFTER LANDSCAPE: [address] [place] [address], [place] [address], Ph. 01/05/2022 Gout; Right Rotator Cuff Syndrome Turner Devine MD: [address] [place] [address] [address], [place] [address], Ph. History of Present Illness Note: <div>Wendy and her return today. She has not been taking her medications as prescribed as her dementia is progressing and her was out of town last week. She apparently removes medications from her home box and then forgets why. It also appears that she has missed several doses of her tacrolimus and mycophenolate. We had a lengthy discussion again and she has agreed to obtainingin-home help during the week to ensure medications and meals are prepped. </div><div>
</div><div>She is denying chest pain, SOB, MAYORGA, fatigue, orthopnea, palpitations, and edema, but does c/o some dizziness. </div><div>
</div><div>Last V isit</div><div>1. Torsemide 40 mg for the next week </div><div>2. F/U 1 weekwith BMP, BNP </div><div>3. Discussed the importance of medication compliance. It appears the patient's dementia may be progressing as she is forgetful regarding medicine. A lengthydiscussion took place with her family member on utilizing a team-driven aproach to filling her pill box weekly as it again appears she is not taking all of he medications as prescribed. </div>< div>
</div><div>CARDIAC HISTORY and MEDICAL HISTORY </div><div>Renal transplant -- creatinine 2.0 </div><div>Anterior STEMI 06/05/21. 2.5x38 and 2.5x28 Synergy </div><div>Acute stent thrombosis 06/12/21. Aspiration thrombectomy. 2.5x8 Synergy tomid LAD </div><div>Groin complications -- required embolization. </div><div>Chronic systolic and diastolic CHF. </div><div>
</div><div>Data review: </div><div>I have personally reviewed </div><div>Cath 06/05/21. Acute anterior STEMI. </div><div>Echo EF 45%. PASP 60 </div><div>
</div><div>Labs: </div><div>3/24</div><div>Na 142</div><div>K 3.9</div><div>Cr 2.6</div><div>LDL 57</div><div>BNP 25406</div>& lt;div>
</div><div>
</div><div>3/12 </div><div>Cr 2.4</div><div>Na 135</div><div>K 3.9</div><div>HCT 29.2</ div><div>HBG 8.9</div><div>
</div><div>
</div&g t;<div>3/8</div><div>bnp 13096</div><div>LDL 59</div><div>HDL 47</div><div>
</div><div>Cr 2.5</div><div>Na 139</div><div>K 4.8</div><div>BNP 31807</div><div>
</div><div>Cr 2.0 </div><div>HCT 29 </div><div>AST 14</div><div>
</div><div>
</div> Review of Systems: ROS as noted in the HPI Review of Systems Brief Cardiology ROS Reported By: Patient Cardio Basic: Cardiovascular Symptoms: no chest pressure, no chest pain, no dyspnea on exertion, no fatigue, no leg edema, no orthopnea, no palpitations, no PND, no shortness of [place] th, lightheadedness; Dizzy at all times but worsens with position change s Physical Exam Notes: <div>General. No acute distr ess. Conversant. </div><div>HEENT. Normocephalic atraumatic. Mucous membranes moist. Sclera anicteric. Oropharynx clear. </div><div>Chest. Clear. Nor mal effort. Symmetric. </div><div>Cardiovascular. Normal JVP. Normal S1 and S2 . No gallops or rubs. I/ systolic crescendo-decrescendo murmur . </div><div>Abdomen. Normal bowel sounds. Soft nontender nondistended. No a ppreciated hepatosplenomegaly. </div><div>Extremities. No c yanosis. No clubbing. Trace edema. </div><div>Skin. Warm and dr y. No rashes. </div><div>Neurological. Alert and oriented x3. Nonfocal. No as ymmetry is noted. </div><div>Psychiatric. Affect and tone are normal.</div>
--- OUTSIDE RECORDS SUMMARY | 2022-01-22 19:19 | External Medical Summary | Encounter Summary ---
:1955 Author Care Team Providers Name Role Phone Turner Devine MD Primary Care Provider [phone] Leeanne Lemus SCREW MACHINE ADJUSTER AUTOMATIC-C Test Technician [phone] Saji Fortune MD OTHER [phone] Reason for Visit 1 WK FOLLOW-UP No [...] Hypertension) eating plan as recommended by the [place] [employer]. 2. A regular pattern of [...] Plasma 01/20/2022 [facility] [place] Only Pro BNP (Pro B-type 01/20/[address] [facility] [place] Natriuretic Peptide), Serum Only or Plasma Referral [...] Notes: Reviewed medicationbottles that patient brought in- [facility] 01/20/22 Medications Administered None recorded. Vitals Height Weight BMI Blood Pressure 5 ft 4 in 135.2 lbs 23.2 kg/m2 174/100 mm[Hg] Results Lab Results None recorded. Allergies Code Code System Name Reaction Severity Onset 2551 RxNorm Ciprofloxacin Other Severe 08/07/2020 71228 RxNorm Levofloxacin Other Severe 08/07/2020 723 RxNorm Amoxicillin Rash 2189 RxNorm Cefoxitin Rash 2231 RxNorm Cephalexin Rash Cephalosporins Rash 2540 RxNorm Cilastatin Rash 3648 RxNorm Droperidol Rash 5690 RxNorm Imipenem Rash 6185 RxNorm Labetalol Rash 6470 RxNorm Lorazepam Rash 6754 RxNorm Meperidine Rash 6922 RxNorm Metronidazole Rash 7804 RxNorm Oxycodone Rash 8001 RxNorm Pentazocine Rash 8134 RxNorm Phenobarbital Rash 8785 RxNorm Propoxyphene Rash 36197 RxNorm Tobramycin Rash Notes: Some allergies listed in Docume nt: #[id number] could not be added to this patient's [...] Do you feel stressed (tense, restless, nervous, [id number] or anxious, or unable to sleep at [...] Arteriosclerosis; Mixed Hyperlipidemia; Essential Hypertension Cata Sanders SCREW MACHINE ADJUSTER AUTOMATIC: [address] [place] [address], [place] [address], Ph. 01/12/2022 Acute on Chronic Diastolic Heart Failure ; Coronary Arteriosclerosis; Mixed Hyperlipidemia; Essential Hypertension Cata Sanders SCREW MACHINE ADJUSTER AUTOMATIC: [address] [place] [address], [place] [address], Ph. 01/05/2022 Gout; Right Rotator Cuff Syndrome Tunrer Devine MD: [address] [place] [address] [address], [place] [address], Ph. History of Present Illness Note: <div>Wendy [...] </div><div>
</div><div>Labs: </div><div>3/24</div><div>Na 142</div><div>K 3.9</div><div>Cr 2.6</div><div>LDL 57</div><div>BNP 01754</div>& lt;div>
</div><div>
</div><div>3/12 </div><div>Cr 2.4</div><div>Na 135</div><div>K 3.9</div><div>HCT 29.2</ div><div>HBG 8.9</div><div>
</div><div>
</div&g t;<div>3/8</div><div>bnp 45951</div><div>LDL 59</div><div>HDL 47</div><div>
</div><div>Cr 2.5</div><div>Na 139</div><div>K 4.8</div><div>BNP 62954</div><div>
</div><div>Cr 2.0 </div><div>HCT 29 </div><div>AST 14</div><div>
</div><div>
[...]
--- OUTSIDE RECORDS SUMMARY | 2022-01-22 19:19 | External Medical Summary | Encounter Summary ---
:1955 Author Care Team Providers Name Role Phone Turner Devine MD Primary Care Provider [phone] Leeanne Lemus TABULATING CLERK-C Chemical Checker [phone] Saji Fortune MD OTHER [phone] Reason for Visit 2 WK FOLLOW-UP Assessment and Plan 1. Acute on chronic diastolic heart teodora lure Mildly reduced LV Function EF 45-50% (pr eviously lower) Probable RVSP 60 mm HG NYHA Class IIa AHA/ACC Stage C Heart Smart: Offered. Not interested at this time. KAYLA: low-risk per STOPBANG 1500 mL fluid restriction 1500 mg sodium restriction Cr 2.5 Meds: BALJINDER/ARB: losartan Beta-federico: metoprolol Loop diuretic: Torsemide 60 mg Pt has continue to do well on BB dose. N ephrology has decreased her torsemide to 20 mg daily. Agree as she appears a bit on the dry side today. Cr up a bit to 2.5. Not drinking much fluids. Instructed to increase intake to at least 1500 ml. CMP, serum or plasma pro BNP (pro B-type natriuretic pepti de), serum or plasma lipid panel, blood 2. Coronary arteriosclerosis Acute anterior STEMI. Complicated by st ent thrombosis 7 days later due to medical noncompliance (not taking plavix). Trans itioning from Brilinta to plavix 3. Mixed hyperlipidemia Restarted on atorvastatin 40 mg for sec ondary prevention. 4. Essential hypertension Reasonable. She will keep a log and rosalinda ng to the next visit. Discussion Note 1. Agree with torsemide dose. Take cheli tional 10 mg for weight increase more than 2 lbs in 24H 2. F/U in 8 weeks with BNP, CMP, lipids Patient educational handouts: No information available. Plan [...] Hypertension) eating plan as recommended by the [place] [employer]. 2. A regular pattern of [...] Macdonald 01/27/2022 Gabi Sanders NP 11:00AM Lab CMP, Serum or Plasma 11/26/2021 [facility] Prl ([place]) Pro BNP (Pro B-type 11/26/2021 [facility] Natriuretic Peptide), Serum Hosp ital Prl (Lab) or Plasma Lipid Panel, Blood 11/26/2021 [facility] Prl ([place]) Referral None recorded. Procedures None recorded. Surgeries [...] in 134.8 lbs 23.1 kg/m2 140/88 mm[Hg] Results Lab Results Date Name Specimen Result Interpretation Description Value Range Status Address 01/04/2022 Pro BNP (Pro Plasma High Probnp 19327.0 <125.0 Final Pathologists' B-type pg/mL pg/mL Regional L ab: Natriuretic [address] , Peptide), [place] Serum or Plasma 01/04/2022 CMP, Serum Plasma Glucose,rando 100 70-105 F inal Pathologists' or Plasma m mg/dL mg/dL Regiona l Lab: [address] , [place] Plasma High Blood Urea 44 mg/dL 8-23 Final Pat hologists' Nitrogen mg/dL Regional Lab: [address] [facility] , [place] Plasma High Creatinine 2.3 0.6-1.1 Final Path ologists' mg/dL mg/dL Regional L ab: [address] , [place] Plasma Sodium 135 133-145 Final Patholog ists' mmol/L mmol/L Regional L ab: [address] , [place] Plasma Potassium 4.1 3.3-5.1 Final Patho logists' mmol/L mmol/L Regional L ab: [address] , [place] Plasma Chloride 106 96-108 Final Patholo gists' mmol/L mmol/L Regional L ab: [address] , [place] Plasma Low Carbon 19 22-30 Final Pathologi sts' Dioxide mmol/L mmol/L Regional Lab: [address] , [place] Plasma Anion Gap 10.0 8.0-16. Final Patho logists' 0 Regional L ab: [address] , [place] Plasma Calcium 9.8 8.6-10. Final Patholo gists' mg/dL 4 mg/dL Regional Lab: [address] , [place] Plasma Total Protein 6.5 5.9-8.4 Final P athologists' gm/dL gm/dL Regional L ab: [address] , [place] Plasma Albumin 3.4 3.2-5.2 Final Patholo gists' gm/dL gm/dL Regional L ab: [address] , [place] Plasma Globulin 3.1 2.2-3.7 Final Pathol ogists' gm/dL gm/dL Regional L ab: [address] [place] [address] Plasma Alb/glob 1.1 1.0-2.3 Final Pathol ogists' Ratio Regional L ab: [address] [place] [address] Plasma Bilirubin,tot 0.2 0.1-1.0 Final P athologists' al mg/dL mg/dL Regional L ab: [address] [facility] , [place] Plasma AST/SGOT 8 U/L <32 U/L Final Pathol ogists' Regional L ab: [address] [place] [address] Plasma ALT/SGPT <5 U/L <40 U/L Final Pathol ogists' Regional L ab: 415 [facility] , [place] Plasma Alkaline 64 U/L 39-117 Final Patholo gists' Phosphatase U/L Regio nal Lab: [address] [facility] , [place] Plasma Glomerular 21 Final Patho logists' Filtration Region al Lab: Rate [address] [place] [address] 01/04/2022 Lipid Panel, Plasma Cholesterol 123 <200 F inal Pathologists' Blood mg/dL mg/dL Regional L ab: [address] [place] [address] Plasma Triglycerides 89 mg/dL <150 Final Pathologists' mg/dL Regional L ab: [address] [place] [address] Plasma LDL,calculate 59 mg/dL <100 Final Pathologists' d mg/dL Regional L ab: [address] [place] [address] Plasma HDL 47 mg/dL >40 Final Patholog ists' Cholesterol mg/dL Regio nal Lab: [address] [place] [address] Plasma non-HDL 76 mg/dL <130 Final Pathol ogists' Cholesterol mg/dL Regio nal Lab: [address] [place] [address] Allergies Code Code System Name Reaction Severity Onset 2551 RxNorm Ciprofloxacin Other Severe 08/07/2020 82836 RxNorm Levofloxacin Other Severe 08/07/2020 723 RxNorm Amoxicillin Rash 2189 RxNorm Cefoxitin Rash 2231 RxNorm Cephalexin Rash Cephalosporins Rash 2540 RxNorm Cilastatin Rash 3648 RxNorm Droperidol Rash 5690 RxNorm Imipenem Rash 6185 RxNorm Labetalol Rash 6470 RxNorm Lorazepam Rash 6754 RxNorm Meperidine Rash 6922 RxNorm Metronidazole Rash 7804 RxNorm Oxycodone Rash 8001 RxNorm Pentazocine Rash 8134 RxNorm Phenobarbital Rash 8785 RxNorm Propoxyphene Rash 70144 RxNorm Tobramycin Rash Notes: Some allergies listed in Docume nt: #[id number] could not be added to this patient's [...] Do you feel stressed (tense, restless, nervous, [id number] or anxious, or unable to sleep at [...] walking or climbing stairs?? Yes Past Encounters 11/26/2021 Acute on Chronic Diastolic Heart Failure ; Coronary Arteriosclerosis; Mixed Hyperlipidemia; Essential Hypertension Cata Sanders, TABULATING CLERK: [address] [place] [address], [place] [address], Ph. History of Present Illness Note: <div>
</div><div>
</div><div>Las t visit: </div><div>1. REcheck BMP and BNP </div><div>2. Resume atorvastatin </div><div>3. Continue 60 mg torsemide daily </div><div>4. Follow up in 2 weeks.</div><d iv>
</div><div>CARDIAC HISTORY and MEDICAL HISTORY </div><div>Renal transplant -- creatinine 2.0 </div><div>Anterior STEMI 06/05/21. 2.5x38 and 2.5x28 Synergy </div><div>Acute stent thrombosis 06/12/21. Aspiration thrombectomy. 2.5x8 Synergy to mid LAD </div><div>Groin complications -- required embolization. </div><div>Chronic systolic and diastolic CHF. </div><div> </div><div>Data review: </di v><div>I have personally reviewed </div><div>Cath 06/05/21. Acute anterior STEMI.</div><div>Echo EF 45%. PASP 60 </div><div>Labs: </div><div>Cr 2.0 </div><div>HCT 29 </div><div>AST 14</div>

<div>Wendy juarezns today and reports some fatigue and MAYORGA, but denies chest pain, SOB, othopnea, dizziness, palpitations, and edema. </div><div>
</div><div>Last visit: &lt ;/div><div>1. REcheck BMP and BNP </div><div>2. Resume atorvastatin </div><div>3. Continue 60 mg torsemide daily </div><div>4. Follow up in 2 weeks.</div& gt;<div>
</div><div>CARDIAC HISTORY and MEDICAL HISTORY </div><div>Renal transplant -- creatinine 2.0 </div><div>Anterior STEMI 06/05/21. 2.5x38 and 2.5x28 Synergy </div><div>Acute stent thrombosis 06/12/21. Aspiration thrombectomy. 2.5x8 Synergy to mid LAD </div><div>Groin complications -- required embolization. </div><div>Chronic systolic and diastolic CHF. </div><div> </div><div>Data review: </div><div>I have personally reviewed </div><div>Cath 06/05/21. Acute anterior STEMI. </div><div>Echo EF 45%. PASP 60 </div><div>Labs: </div><div>Cr 2.5</div><div>Na 139</div><div>K 4.8</div><div>BNP 56662&lt ;/div><div>
</div><div>Cr 2.0 </div><div>HCT 29 </div><div>AST 14</div>Review of Systems: ROS as noted in the HPI Review of Systems Brief Cardiology ROS Reported By: Patient Cardio Basic: Cardiovascular Symptoms: dys pnea on exertion, shortness of breath Physical Exam Notes: <div>General. No acute distr [...]
--- OUTSIDE RECORDS SUMMARY | 2022-01-22 19:20 | External Medical Summary | Encounter Summary ---
:1955 Author Care Team Providers Name Role Phone Turner Devine MD Primary Care Provider [phone] Leeanne Lemus SECTION PLOTTER OPERATOR-C Hoist Cylinder Loader [phone] Saji Fortune MD OTHER [phone] Reason for Visit 2 WK FOLLOW-UP Assessment [...] Hypertension) eating plan as recommended by the [place] [employer]. 2. A regular pattern of [...] 11:00AM Lab CMP, Serum or Plasma 11/26/2021 [facility] Prl ([place]) Pro BNP (Pro B-type 11/26/2021 [facility] Natriuretic Peptide), Serum Hosp ital Prl (Lab) or Plasma Lipid Panel, Blood 11/26/2021 [facility] Prl ([place]) Referral None recorded. Procedures [...] 01/04/2022 Pro BNP (Pro Plasma High Probnp 93272.0 <125.0 Final Pathologists' B-type pg/mL pg/mL Regional L ab: Natriuretic [address] , Peptide), [place] Serum or Plasma 01/04/2022 CMP, Serum Plasma Glucose,rando 100 70-105 F inal Pathologists' or Plasma m mg/dL mg/dL Regiona l Lab: [address] , [place] Plasma High Blood Urea 44 mg/dL 8-23 Final Pat hologists' Nitrogen mg/dL Regional Lab: 415 [facility] , [place] Plasma High Creatinine 2.3 0.6-1.1 Final Path ologists' mg/dL mg/dL Regional L ab: [address] , [place] Plasma Sodium 135 133-145 Final Patholog ists' mmol/L mmol/L Regional L ab: [address] , [place] Plasma Potassium 4.1 3.3-5.1 Final Patho logists' mmol/L mmol/L Regional L ab: [address] , [place] Plasma Chloride 106 96-108 Final Patholo gists' mmol/L mmol/L Regional L ab: [address] , [place] Plasma Low Carbon 19 22-30 Final Pathologi sts' Dioxide mmol/L mmol/L Regional Lab: [address] , [place] Plasma Anion Gap 10.0 8.0-16. Final Patho logists' 0 Regional L ab: [address] , [place] Plasma Calcium 9.8 8.6-10. Final Patholo gists' mg/dL 4 mg/dL Regional Lab: [address] , [place] Plasma Total Protein 6.5 5.9-8.4 Final P athologists' gm/dL gm/dL Regional L ab: [address] , [place] Plasma Albumin 3.4 3.2-5.2 Final Patholo gists' gm/dL gm/dL Regional L ab: [address] , [place] Plasma Globulin 3.1 2.2-3.7 Final Pathol ogists' gm/dL gm/dL Regional L ab: [address] [place] [address] Plasma Alb/glob 1.1 1.0-2.3 Final Pathol ogists' Ratio Regional L ab: [address] [place] [address] Plasma Bilirubin,tot 0.2 0.1-1.0 Final P athologists' al mg/dL mg/dL Regional L ab: 415 [facility] , [place] Plasma AST/SGOT 8 U/L <32 U/L Final Pathol ogists' Regional L ab: [address] [place] [address] Plasma ALT/SGPT <5 U/L <40 U/L Final Pathol ogists' Regional L ab: [address] [facility] , [place] Plasma Alkaline 64 U/L 39-117 Final Patholo gists' Phosphatase U/L Regio nal Lab: [address] [facility] , [place] Plasma Glomerular 21 Final Patho logists' Filtration Region al Lab: Rate [address] [place] [address] 01/04/2022 Lipid Panel, Plasma Cholesterol 123 <200 F inal Pathologists' Blood mg/dL mg/dL Regional L ab: [address] [place] [address] Plasma Triglycerides 89 mg/dL <150 Final Pathologists' mg/dL Regional L ab: [address] [place] [address] Plasma LDL,calculate 59 mg/dL <100 Final Pathologists' d mg/dL Regional L ab: [address] [place] [address] Plasma HDL 47 mg/dL >40 Final Patholog ists' Cholesterol mg/dL Regio nal Lab: [address] [place] [address] Plasma non-HDL 76 mg/dL <130 Final Pathol ogists' Cholesterol mg/dL Regio nal Lab: [address] [place] [address] Allergies Code Code System Name Reaction Severity Onset 2551 RxNorm Ciprofloxacin Other Severe 08/07/2020 29131 RxNorm Levofloxacin Other Severe 08/07/2020 723 RxNorm Amoxicillin Rash 2189 RxNorm Cefoxitin Rash 2231 RxNorm Cephalexin Rash Cephalosporins Rash 2540 RxNorm Cilastatin Rash 3648 RxNorm Droperidol Rash 5690 RxNorm Imipenem Rash 6185 RxNorm Labetalol Rash 6470 RxNorm Lorazepam Rash 6754 RxNorm Meperidine Rash 6922 RxNorm Metronidazole Rash 7804 RxNorm Oxycodone Rash 8001 RxNorm Pentazocine Rash 8134 RxNorm Phenobarbital Rash 8785 RxNorm Propoxyphene Rash 86639 RxNorm Tobramycin Rash Notes: Some allergies listed in Docume nt: #[id number] could not be added to this patient's [...] Do you feel stressed (tense, restless, nervous, [id number] or anxious, or unable to sleep at [...] Arteriosclerosis; Mixed Hyperlipidemia; Essential Hypertension Cata Sanders, SECTION PLOTTER OPERATOR: [address] [place] [address], [place] [address], Ph. History of Present Illness Note: <div>
[...] PASP 60 </div><div>Labs: </div><div>Cr 2.5</div><div>Na 139</div><div>K 4.8</div><div>BNP 37043&lt ;/div><div>
</div><div>Cr 2.0 </div><div>HCT 29 </div><div>AST 14</div>Review [...]
--- OUTSIDE RECORDS SUMMARY | 2022-01-22 19:20 | External Medical Summary | Encounter Summary ---
:1955 Author Care Team Providers Name Role Phone Turner Devine MD Primary Care Provider [phone] Leeanne Lemus MANAGER HOSPITALITY-C Vehicle Delivery Worker [phone] Saji Fortune MD OTHER [phone] Reason for Visit Shoulder Pain pt is [...] Onset 2551 RxNorm Ciprofloxacin Other Severe 08/07/2020 61169 RxNorm Levofloxacin Other Severe 08/07/2020 723 RxNorm Amoxicillin Rash 2189 RxNorm Cefoxitin Rash 2231 RxNorm Cephalexin Rash Cephalosporins Rash 2540 RxNorm Cilastatin Rash 3648 RxNorm Droperidol Rash 5690 RxNorm Imipenem Rash 6185 RxNorm Labetalol Rash 6470 RxNorm Lorazepam Rash 6754 RxNorm Meperidine Rash 6922 RxNorm Metronidazole Rash 7804 RxNorm Oxycodone Rash 8001 RxNorm Pentazocine Rash 8134 RxNorm Phenobarbital Rash 8785 RxNorm Propoxyphene Rash 47867 RxNorm Tobramycin Rash Notes: Some allergies listed in Docume nt: #[id number] could not be added to this patient's [...] Do you feel stressed (tense, restless, nervous, [id number] or anxious, or unable to sleep at [...] Rotator Cuff Tear Turner Devine MD: [address] [facility] [place] [address], Ph. 11/26/2021 Acute on Chronic Diastolic Heart Failure ; Coronary Arteriosclerosis; Mixed Hyperlipidemia; Essential Hypertension Cata Sanders MANAGER HOSPITALITY: [address] [place] [address], [place] [address], Ph. History of Present Illness Note: <div>R [...]
--- OUTSIDE RECORDS SUMMARY | 2022-01-22 19:20 | External Medical Summary | Encounter Summary ---
:1955 Author Care Team Providers Name Role Phone Turner Devine MD Primary Care Provider [phone] Leeanne Lemus QUALITY ASSURANCE MONITOR BODY-C Home Improvement Installer [phone] Saji Fortune MD OTHER [phone] Reason for Visit Shoulder Pain Assessment and Plan Assessment Note I have personally reviewed the medicati on, allergies, medical, social, surgical, and family history of this patient today. I also read Dr Goddard's notes and recommendations, as well as Dr Burdick/Diana Hunt [facility] assessment of her cardiovascula r status. Total [...] Notes: Reviewed medicationbottles that patient brought in- [facility] 01/20/22 Medications Administered None recorded. Vitals Height Weight BMI Blood Pressure 5 ft 4 in 140 lbs 24 kg/m2 138/84 mm[Hg] Results Lab Results None recorded. Allergies Code Code System Name Reaction Severity Onset 2551 RxNorm Ciprofloxacin Other Severe 08/07/2020 86526 RxNorm Levofloxacin Other Severe 08/07/2020 723 RxNorm Amoxicillin Rash 2189 RxNorm Cefoxitin Rash 2231 RxNorm Cephalexin Rash Cephalosporins Rash 2540 RxNorm Cilastatin Rash 3648 RxNorm Droperidol Rash 5690 RxNorm Imipenem Rash 6185 RxNorm Labetalol Rash 6470 RxNorm Lorazepam Rash 6754 RxNorm Meperidine Rash 6922 RxNorm Metronidazole Rash 7804 RxNorm Oxycodone Rash 8001 RxNorm Pentazocine Rash 8134 RxNorm Phenobarbital Rash 8785 RxNorm Propoxyphene Rash 56744 RxNorm Tobramycin Rash Notes: Some allergies listed in Docume nt: #[id number] could not be added to this patient's [...] do you have serious difficulty N hearing? Do you use your seat belt or car seat Y routinely? Are you passively exposed to smoke? N Do you or have you ever used any other forms of N tobacco or nicotine? Do you have difficulty dressing or bathing? Y Has tobacco cessation counseling been provided? N Are you blind or do you have difficulty seeing? N Do you have smoke and carbon monoxide detectors Y in your home? In the 14 days before symptom onset, have you N had close contact with a person who is under investigation for COVID-19 while that person was ill? Do you have difficulty doing errands alone? Y Do you reside in or have you traveled to an area where Ebola virus transmission is active? What was the date of your most recent tobacco 11/26/2021 screening? Do you have an advanced directive? N Do you use any illicit or recreational drugs? N Have there been any changes to your family or N social situation? In the 14 days before symptom onset, have you N had close contact with a laboratory-confirmed COVID-19 while that case was ill? What is your exercise level? None Live alone or with others? with others Are you sexually active? N Do you have difficulty concentrating, Y remembering or making decisions? What is your level of caffeine consumption? None Do you feel stressed (tense, restless, nervous, [id number] or anxious, or unable to sleep at [...] Rotator Cuff Syndrome Turner Devine MD: [address] [facility], [address], [place] [address], Ph. History of Present Illness Note: <div>Wanted [...] swelling, erythema Peripheral Pulses: Radial Pulse: normal. Flatbed Driver ior Tibialis Pulse normal
--- OUTSIDE RECORDS SUMMARY | 2022-01-22 19:20 | External Medical Summary | Encounter Summary ---
:1955 Author Care Team Providers Name Role Phone Turner Devine MD Primary Care Provider [phone] Leeanne Lemus WELDING LEAD BURNER-C Manager Strategic [phone] Saji Fortune MD OTHER [phone] Reason for Visit edema; 2 MTH FOLLOW-UP [...] Hypertension) eating plan as recommended by the [place] [employer]. 2. A regular pattern of [...] Plasma 01/12/[address] [facility] Only Pro BNP (Pro B-type 01/12/20[facility] Natriuretic Peptide), Serum Only or Plasma BMP, Serum or Plasma 01/16/2022 [facility] Only Pro BNP (Pro B-type 01/16/[facility] Natriuretic Peptide), Serum Only or Plasma Lipid Panel, Blood 01/16/[address] [facility] Only Referral None recorded. Procedures None recorded. [...] Notes: Reviewed medicationbottles that patient brought in- [facility] 01/20/22 Medications Administered None recorded. Vitals Height Weight BMI Blood Pressure 5 ft 4 in 137.4 lbs 23.6 kg/m2 168/92 mm[Hg] Results Lab Results Date Name Specimen Result Interpretation Description Value Range Status Address 01/20/2022 Pro BNP (Pro Plasma High Probnp 02146.0 <125.0 Final Pathologists' B-type pg/mL pg/mL Regional L ab: Natriuretic [address], Peptide), [place] Serum or Plasma 01/20/2022 BMP, Serum Plasma Glucose,rando 90 mg/dL 70-105 Final Pathologists' or Plasma m mg/dL Regiona l Lab: [address] , [place] Plasma High Blood Urea 54 mg/dL 8-23 Final Pat hologists' Nitrogen mg/dL Regional Lab: [address] , [place] Plasma High Creatinine 2.6 0.6-1.1 Final Path ologists' mg/dL mg/dL Regional L ab: [address] , [place] Plasma Sodium 142 133-145 Final Patholog ists' mmol/L mmol/L Regional L ab: [address] , [place] Plasma Potassium 3.9 3.3-5.1 Final Patho logists' mmol/L mmol/L Regional L ab: [address] , [place] Plasma Chloride 106 96-108 Final Patholo gists' mmol/L mmol/L Regional L ab: [address] , [place] Plasma Low Carbon 19 22-30 Final Pathologi sts' Dioxide mmol/L mmol/L Regional Lab: [address] , [place] Plasma High Anion Gap 17.0 8.0-16. Final Patho logists' 0 Regional L ab: [address] , [place] Plasma Low Calcium 7.0 8.6-10. Final Patholo gists' mg/dL 4 mg/dL Regional Lab: [address] [place] [address] Plasma Glomerular 18 Final Patho logists' Filtration Region al Lab: Rate [address] [place] [address] 01/20/2022 Lipid Panel, Plasma Cholesterol 123 <200 F inal Pathologists' Blood mg/dL mg/dL Regional L ab: [address] [place] [address] Plasma Triglycerides 76 mg/dL <150 Final Pathologists' mg/dL Regional L ab: [address] [place] [address] Plasma LDL,calculate 57 mg/dL <100 Final Pathologists' d mg/dL Regional L ab: [address] [place] [address] Plasma HDL 51 mg/dL >40 Final Patholog ists' Cholesterol mg/dL Regio nal Lab: [address] [place] [address] Plasma non-HDL 72 mg/dL <130 Final Pathol ogists' Cholesterol mg/dL Regio nal Lab: [address] [place] [address] Allergies Code Code System Name Reaction Severity Onset 2551 RxNorm Ciprofloxacin Other Severe 08/07/2020 05794 RxNorm Levofloxacin Other Severe 08/07/2020 723 RxNorm Amoxicillin Rash 2189 RxNorm Cefoxitin Rash 2231 RxNorm Cephalexin Rash Cephalosporins Rash 2540 RxNorm Cilastatin Rash 3648 RxNorm Droperidol Rash 5690 RxNorm Imipenem Rash 6185 RxNorm Labetalol Rash 6470 RxNorm Lorazepam Rash 6754 RxNorm Meperidine Rash 6922 RxNorm Metronidazole Rash 7804 RxNorm Oxycodone Rash 8001 RxNorm Pentazocine Rash 8134 RxNorm Phenobarbital Rash 8785 RxNorm Propoxyphene Rash 51579 RxNorm Tobramycin Rash Notes: Some allergies listed in Docume nt: #[id number] could not be added to this patient's [...] Do you feel stressed (tense, restless, nervous, [id number] or anxious, or unable to sleep at [...] Arteriosclerosis; Mixed Hyperlipidemia; Essential Hypertension Cata Sanders, WELDING LEAD BURNER: [address] [place] [address], [place] [address], Ph. 01/05/2022 Gout; Right Rotator Cuff Syndrome Turner Devine MD: [address] [facility], [address], [place] [address], Ph. History of Present Illness Note: <div>Wendy [...] 3.9</div><div>HCT 29.2</div><div>HBG 8.9 </div><div>
</div><div>
</div>&l t;div>3/8</div><div>bnp 41746</div><div>LDL 59</div><div>HDL 47</div><div& gt;
</div><div>Cr 2.5</div><div>Na 139</div><div>K 4.8</div><div>BNP 23113</div><div>
</div><div>Cr 2.0 </div ><div>HCT 29 </div><div>AST 14</div><div>
[...]
[2022-01-22] MEDS ORDERED: GALANTAMINE 4 MG PO SCH (21:00)
[2022-01-22] MEDS: DONEPEZIL 10 MG TABLET PO SCH (21:45)
[2022-01-22] MEDS: MYCOPHENOLATE 250 MG CAPSULE PO SCH (21:45)
[2022-01-22] MEDS: METOPROLOL SUCCINATE 25 MG TAB.XL.24H PO SCH (21:45)
[2022-01-22] MEDS: TACROLIMUS 1 MG CAPSULE PO SCH (21:50)
[2022-01-23 05:11] LABS: Basophils # (Auto) 0.01 K/mcL (0.00-0.30); Basophils % (Auto) 0.1 % (0.0-2.0); Eosinophils # (Auto) 0 K/mcL (0.00-0.70); Eosinophils % (Auto) 0 % (0.0-7.0); Hematocrit 30.1 % (34.1-44.9); Hemoglobin 9.2 g/dL (11.2-15.7); Lymphocytes # (Auto) 0.72 K/mcL (1.50-4.80); Lymphocytes % (Auto) 10.7 % (15.5-49.0); Mean Corpuscular HGB Conc 30.6 g/dL (31.0-36.0); Mean Platelet Volume 10.6 fL (7.4-10.4); Monocytes # (Auto) 0.17 K/mcL (0.10-0.90); Monocytes % (Auto) 2.5 % (1.0-12.0); Neutrophils % (Auto) 86.7 % (38.0-78.0); Platelet Count 254 K/mcL (140-440); RBC 3.17 M/mcL (3.59-5.38); Red Cell Distribution Width 14.6 % (11.5-14.5); WBC 6.7 K/mcL (4.5-11.0)
[2022-01-23 05:22] LABS: INR 1.2 (0.9-1.1); Partial Thromboplastin Time 66.5 sec (20.0-37.0); Prothrombin Time 15.9 sec (11.9-14.5)
[2022-01-23 05:45] LABS: Blood Urea Nitrogen 44 mg/dL (8-23); Calcium 5.9 mg/dL (8.6-10.4); Carbon Dioxide 15 mmol/L (22-30); Chloride 106 mmol/L (96-108); Glomerular Filtration Rate 25; Glucose 119 mg/dL (70-105)
[2022-01-23] MEDS ORDERED: HEPARIN 5,000 UNIT/ML VIAL ONE ×2 (06:03→19:19)
[2022-01-23] MEDS ORDERED: CALCIUM GLUCONATE 4.65 MEQ/10 ML VIAL IV ONE (07:30)
[2022-01-23] MEDS ORDERED: CALCIUM GLUCONATE 9.3 MEQ in DEXTROSE 5% IN WATER 100 ML IV ONE (07:45)
[2022-01-23] MEDS: CLOPIDOGREL 75 MG TABLET PO SCH (08:48)
[2022-01-23] MEDS: MAGNESIUM OXIDE 400 MG TABLET PO SCH (08:48)
[2022-01-23] MEDS: METOPROLOL SUCCINATE 25 MG TAB.XL.24H PO SCH ×3 (08:48→21:08)
[2022-01-23] MEDS: predniSONE 5 MG TABLET PO SCH (08:49)
[2022-01-23] MEDS: OMEPRAZOLE 20 MG CAPSULE PO SCH (08:49)
[2022-01-23] MEDS: MYCOPHENOLATE 250 MG CAPSULE PO SCH ×2 (08:49→21:08)
[2022-01-23] MEDS: TACROLIMUS 1 MG CAPSULE PO SCH ×2 (08:50→21:08)
[2022-01-23] MEDS: VITAMIN D3 125 MCG TABLET PO SCH (09:17)
[2022-01-23] MEDS: LEVOTHYROXINE 100 MCG TABLET PO SCH (09:17)
--- NOTE | 2022-01-23 10:37 | EKG ---
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
[2022-01-23] MEDS ORDERED: LORazepam 0.5 MG TABLET PO PRN (12:56)
--- NOTE | 2022-01-23 12:56 | Internal Med Progress Note ---
SUBJECTIVE Subjective Patient information: Note initiated : 01/23/22 at 12:52 pm Service Date, if different from initiated Date: [] Patient: Wendy Ellsworth a 66 y/o F admitted on 01/22/22 for Weakness. Chief Complaint: [] Principal diagnosis: Vertigo Interval history: Ms. 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 Patient seems to notice that it correlates with change in position and head movements. She denies any tinnitus or hearing loss. Denies any recent viral URI symptoms. Denies dizziness or feeling of passing out. Considering her history of lupus and CVAs, we obtained CTA of head and neck in the emergency room, which incidentally showed bilateral pulmonary embolism. When I saw her in the emergency room, she complained about bed not being comfor table. She preferred to lay still in one position so as to not trigger her vertigo episodes. She reported being uncomfortable on the bed and subsequently was not in a position to offer detailed history. 01/23-- Her vertigo is much better now. We discussed about warfarin and she was overwhelmed and teared up. Met her at bedside. He understood about indications and risks of warfarin therapy and explained it to the patient. She requests something to help her anxiety. Constitutional Vitals: Vital Signs Temp Pulse Resp BP Pulse Ox 98.4 F 72 21 148/91 99 01/23/22 12:07 01/23/22 12:07 01/23/22 12:07 01/23/22 12:07 01/23/22 12:07 Period Temp Pulse Resp BP Sys/Reynoso Pulse Ox Last 24 Hr 98.2 F-98.5 F 57-125 11-43 110-167/53-105 94-99 Intake and Output 01/22/22 01/23/22 01/23/22 21:59 05:59 13:59 Intake Total 1000 1303 720 Output Total 1 100 Balance 1000 1302 620 Weight 62.55 kg Intake & Output: Intake & Output 01/22/22 01/23/22 01/23/22 21:59 05:59 13:59 Intake Total 1000 1303 720 Output Total 1 100 Balance 1000 1302 620 Weight 62.55 kg Intake: IV 1000 223 120 Sodium Chloride 0.9% 1,000 ml @ 1000 Wide Open IV BOLUS ONE Rx#: [id number] Calcium Gluconate 9.3 Meq In 120 Dextrose 5% in Water 100 ml @ 120 mls/hr IV ONCE ONE Rx#: [id number] Heparin/0.45%Ns 25,000 Unit In 223 Premix 1 Bag @ 14 UNIT/KG/HR 16 .511 mls/hr IV .Q24H [facility] Rx#: [id number] Oral 1080 600 Output: Void Amount 100 # of times incontinent of urine 1 Other: Meal Lunch Percent of Meal Consumed 75% Feeding Ability Independent Stool Size Smear # Bowel Movements 1 General appearance: average body habitus, cooperative and no acute distress Head Head exam: Present atraumatic and normocephalic Eye Eye exam: Present normal appearance Respiratory Respiratory exam: Present normal respiratory exam and CTAB; Absent accessory muscle use, decreased breath sounds or respiratory distress Cardiovascular Cardiovascular exam: Present normal rate and rhythm and RRR; Absent bradycardia, gallop, systolic murmur or tachycardia GI/Abdominal GI/Abdominal exam: Present soft Neurological Exam Neurological exam: Present alert and oriented X3; Absent altered or motor sensory deficit Additional findings Additional findings: Malar rash noted. OBJ DATA Labs CBC & Chem 7: 01/23/22 04:38 01/23/22 04:38 Labs: Abnormal Lab Results 01/23/22 01/23/22 01/23/22 04:38 04:38 04:38 RBC 3.17 L Hgb 9.2 L Hct 30.1 L MCHC 30.6 L RDW 14.6 H MPV 10.6 H Neut % (Auto) 86.7 H Lymph % (Auto) 10.7 L Lymph # (Auto) 0.72 L [place] # (Auto) PT 15.9 H INR 1.2 H APTT 66.5 H Carbon Dioxide 15 L BUN 44 H Creatinine 2.0 H Glucose 119 H Calcium 5.9 L* Urine Appearance Urine Protein Ur Leukocyte Esterase Urine WBC Ur Squamous Epith Cells Urine Bacteria Urine Mucus 01/22/22 01/22/22 01/22/22 22:30 11:40 10:25 RBC 3.58 L Hgb 10.3 L Hct 34.0 L MCHC 30.3 L RDW 14.6 H MPV 10.9 H Neut % (Auto) Lymph % (Auto) Lymph # (Auto) [place] # (Auto) 0.97 H PT INR APTT 69.3 H Carbon Dioxide BUN Creatinine Glucose Calcium Urine Appearance Turbid A Urine Protein 100 A Ur Leukocyte Esterase 500 A Urine WBC > 182 H Ur Squamous Epith Cells 8 H Urine Bacteria Many A Urine Mucus Few A 01/22/22 10:24 RBC Hgb Hct MCHC RDW MPV Neut % (Auto) Lymph % (Auto) Lymph # (Auto) [place] # (Auto) PT INR APTT Carbon Dioxide 19 L BUN 49 H Creatinine 2.4 H Glucose Calcium 7.0 L Urine Appearance Urine Protein Ur Leukocyte Esterase Urine WBC Ur Squamous Epith Cells Urine Bacteria Urine Mucus Meds: Medications Clopidogrel Bisulfate (Clopidogrel 75 Mg Tablet) 75 mg PO QDAY [facility] Last Admin: 01/23/22 08:48 Dose: 75 mg Documented by: Donepezil HCl (Donepezil 10 Mg Tablet) 10 mg PO [facility] Last Admin: 01/22/22 21:45 Dose: 10 mg Documented by: Heparin Sodium/Sodium Chloride (25,000 unit/ Premix) 500 mls @ 16.511 mls/hr IV .Q24H [facility]; Protocol Last Titration: 01/23/22 05:55 Dose: 16 unit/kg/hr, 18.869 mls/hr Documented by: Levothyroxine Sodium (Levothyroxine 100 Mcg Tablet) 100 mcg PO QDAY [facility] Last Admin: 01/23/22 09:17 Dose: 100 mcg Documented by: Magnesium Oxide (Magnesium Oxide 400 Mg Tablet) 400 mg PO DAILY [facility] Last Admin: 01/23/22 08:48 Dose: 400 mg Documented by: Metoprolol Succinate (Metoprolol Succinate 25 Mg Tab.Xl.24h) 25 mg PO TID [facility] Last Admin: 01/23/22 08:48 Dose: 25 mg Documented by: Mycophenolate Mofetil (Mycophenolate 250 Mg Capsule) 750 mg PO BID [facility] Last Admin: 01/23/22 08:49 Dose: 750 mg Documented by: Omeprazole (Omeprazole 20 Mg Capsule) 20 mg PO DAILY [facility] Last Admin: 01/23/22 08:49 Dose: 20 mg Documented by: Galantamine 4 Mg (Tablet) 3 dose PO [facility] Prednisone (Prednisone 5 Mg Tablet) 5 mg PO QDAY [facility] Last Admin: 01/23/22 08:49 Dose: 5 mg Documented by: Quetiapine Fumarate (Quetiapine 100 Mg Tablet) 100 mg PO HS [facility] Tacrolimus (Tacrolimus 1 Mg Capsule) 3 mg PO BID [facility] Last Admin: 01/23/22 08:50 Dose: 3 mg Documented by: Vitamin D (Vitamin D3 125 Mcg Tablet) 125 mcg PO DAILY [facility] Last Admin: 01/23/22 09:17 Dose: 125 mcg Documented by: Warfarin Sodium (Warfarin 5 Mg Tablet) 5 mg PO DAILY@1400 [facility] A/P Narrative A/P Narrative: In summary Ms. Ellsworth is a 66-year-old female with history of lupus coronary artery disease, CVA with residual facial droop, renal transplant on immuno suppressive therapy who presents with a week history of vertigo. Incidentally discovered bilateral pulmonary embolisms in the emergency room. Admitted for management of vertigo symptoms and new diagnosis of PE. Initially had refused admission since I felt her vertigo would be better served by a neurologist. However considering her acute pulmonary embolism, she needs urgent treatment with IV heparin drip. #Acute bilateral pulmonary embolisms Started on IV heparin drip. Considering her renal function, she will need warfarin initiation. started warfarin on 01/23 2 PM. Continue heparin drip until her INR is above 2. #Vertigo CTA H and N showed- 80% stenosis in the right vertebral at the foramen magnum, 60% stenosis in the left vertebral at the foramen magnum and 70% stenosis of the basilar artery above the foramen magnum. This seems to be from arterial stenotic lesions. Especially in the setting of her lupus, CVA, CAD-puts her at a high risk for being a vasculopath. # CAD-had ST elevation [place] in May 2021. Received cardiac stent. It has been 8 months since her stent placement. Cannot continue aspirin along with Plavix and systemic anticoagulation due to high risk of bleeding. Stop aspirin. Continue Plavix along with anticoagulation. Decision in accordance with the latest guidelines. As needed meclizine for symptom control #Systemic lupus erythematosus. She has the classic malar rash. Resume home medications-mycophenolate tacrolimus and prednisone. Hold torsemide for now to monitor renal function. #Hypertension-hold amlodipine for now. #Anxiety- PRN Ativan. Since she received CTA of head and neck, I would expect some creatinine bump in the next 2 to 3 days, from contrast-induced nephropathy. Will trend BMP. #DVT prophylaxis-Heparin drip as above. . Time Spent With Patient Time: Total time spent is greater than 50% in coordination of care (as documented) at patient's floor/unit and/or counseling patient: Total time spent with greater than 50% in coordination of care (as documented) at patient's floor/unit and/or counseling patient:: 35 - 50 minutes QUALITY VTE Deep Vein Thrombosis/Pulmonary Embolism Present on Admission: Yes
[2022-01-23] MEDS: WARFARIN 5 MG TABLET PO SCH (14:06)
[2022-01-23] MEDS: HEPARIN SOD,PORK IN 0.45% NACL 25,000 UNIT in PREMIX 1 BAG IV SCH (15:59)
[2022-01-23] MEDS: QUEtiapine 100 MG TABLET PO SCH (21:08)
[2022-01-23] MEDS: DONEPEZIL 10 MG TABLET PO SCH (21:08)
[2022-01-24 06:46] LABS: Basophils # (Auto) 0.03 K/mcL (0.00-0.30); Basophils % (Auto) 0.4 % (0.0-2.0); Eosinophils # (Auto) 0.21 K/mcL (0.00-0.70); Eosinophils % (Auto) 2.8 % (0.0-7.0); Hematocrit 28.9 % (34.1-44.9); Hemoglobin 8.8 g/dL (11.2-15.7); Lymphocytes # (Auto) 2.36 K/mcL (1.50-4.80); Lymphocytes % (Auto) 31.4 % (15.5-49.0); Mean Cell Volume 93.5 fL (80.0-100.0); Mean Corpuscular HGB Conc 30.4 g/dL (31.0-36.0); Mean Platelet Volume 10.6 fL (7.4-10.4); Monocytes # (Auto) 0.61 K/mcL (0.10-0.90); Monocytes % (Auto) 8.1 % (1.0-12.0); Neutrophils % (Auto) 57.3 % (38.0-78.0); Platelet Count 232 K/mcL (140-440); RBC 3.09 M/mcL (3.59-5.38); Red Cell Distribution Width 14.9 % (11.5-14.5); WBC 7.5 K/mcL (4.5-11.0)
[2022-01-24 06:59] LABS: Blood Urea Nitrogen 46 mg/dL (8-23); Calcium 6.2 mg/dL (8.6-10.4); Carbon Dioxide 17 mmol/L (22-30); Chloride 110 mmol/L (96-108); Glomerular Filtration Rate 22; Glucose 103 mg/dL (70-105)
[2022-01-24 07:13] LABS: INR 1.2 (0.9-1.1); Prothrombin Time 15.9 sec (11.9-14.5)
[2022-01-24] MEDS: LEVOTHYROXINE 100 MCG TABLET PO SCH (07:25)
[2022-01-24] MEDS: CLOPIDOGREL 75 MG TABLET PO SCH (08:51)
[2022-01-24] MEDS: OMEPRAZOLE 20 MG CAPSULE PO SCH (08:51)
[2022-01-24] MEDS: MAGNESIUM OXIDE 400 MG TABLET PO SCH (08:51)
[2022-01-24] MEDS: predniSONE 5 MG TABLET PO SCH (08:52)
[2022-01-24] MEDS: VITAMIN D3 125 MCG TABLET PO SCH (08:52)
[2022-01-24] MEDS: MYCOPHENOLATE 250 MG CAPSULE PO SCH ×2 (08:52→20:46)
[2022-01-24] MEDS: TACROLIMUS 1 MG CAPSULE PO SCH ×2 (08:52→20:44)
[2022-01-24] MEDS: METOPROLOL SUCCINATE 25 MG TAB.XL.24H PO SCH ×3 (08:54→20:46)
[2022-01-24] MEDS ORDERED: HEPARIN 5,000 UNIT/ML VIAL IV ONE (11:30)
[2022-01-24] MEDS: WARFARIN 5 MG TABLET PO SCH (14:21)
--- NOTE | 2022-01-24 14:44 | Internal Med Progress Note ---
SUBJECTIVE Subjective Patient information: Note initiated : 01/24/22 at 2:42 pm Service Date, if different from initiated Date: [] Patient: Wendy Ellsworth a 66 y/o F admitted on 01/22/22 for Weakness. Chief Complaint: [] Principal diagnosis: Vertigo Interval history: Ms. 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 Patient seems to notice that it correlates with change in position and head movements. She denies any tinnitus or hearing loss. Denies any recent viral URI symptoms. Denies dizziness or feeling of passing out. Considering her history of lupus and CVAs, we obtained CTA of head and neck in the emergency room, which incidentally showed bilateral pulmonary embolism. When I saw her in the emergency room, she complained about bed not being comfort able. She preferred to lay still in one position so as to not trigger her vertigo episodes. She reported being uncomfortable on the bed and subsequently was not in a position to offer detailed history. 01/23-- Her vertigo is much better now. We discussed about warfarin and she was overwhelmed and teared up. Met her at bedside. He understood about indications and risks of warfarin therapy and explained it to the patient. She requests something to help her anxiety. 01/24- Occasional vertigo since yesterday. Overall better compared to before. Comfortable and better today. Anxiety better with PRN ativan. Constitutional Vitals: Vital Signs Temp Pulse Resp BP Pulse Ox 98.4 F 55 L 23 H 138/84 98 01/24/22 14:21 01/24/22 14:21 01/24/22 14:21 01/24/22 14:21 01/24/22 14:21 Period Temp Pulse Resp BP Sys/Reynoso Pulse Ox Last 24 Hr 97.1 F-98.5 F 43-70 16-30 120-163/79-101 98-100 Intake and Output 01/24/22 01/24/22 01/24/22 05:59 13:59 21:59 Intake Total 125 333 Output Total 2 Balance 125 331 Intake & Output: Intake & Output 01/24/22 01/24/22 01/24/22 05:59 13:59 21:59 Intake Total 125 333 Output Total 2 Balance 125 331 Intake: IV 125 93 Heparin/0.45%Ns 25,000 Unit In 125 93 Premix 1 Bag @ 14 UNIT/KG/HR 16 .511 mls/hr IV .Q24H [facility] Rx#: [id number] Oral 240 Output: # of times incontinent of urine 2 Other: Meal Lunch Percent of Meal Consumed 100% Feeding Ability Independent General appearance: average body habitus, cooperative and no acute distress Head Head exam: Present atraumatic and normocephalic Eye Eye exam: Present normal appearance Respiratory Respiratory exam: Present normal respiratory exam and CTAB; Absent accessory muscle use, decreased breath sounds or respiratory distress Cardiovascular Cardiovascular exam: Present normal rate and rhythm and RRR; Absent bradycardia, gallop, systolic murmur or tachycardia GI/Abdominal GI/Abdominal exam: Present soft Neurological Exam Neurological exam: Present alert and oriented X3; Absent altered or motor sensory deficit OBJ DATA Labs CBC & Chem 7: 01/24/22 05:10 01/24/22 05:10 Labs: Abnormal Lab Results 01/24/22 01/24/22 01/24/22 09:36 05:10 05:10 RBC Hgb Hct MCHC RDW MPV Neut % (Auto) Lymph % (Auto) Lymph # (Auto) [place] # (Auto) PT 15.9 H INR 1.2 H APTT 67.2 H Chloride 110 H Carbon Dioxide 17 L BUN 46 H Creatinine 2.2 H Glucose Calcium 6.2 L Urine Appearance Urine Protein Ur Leukocyte Esterase Urine WBC Ur Squamous Epith Cells Urine Bacteria Urine Mucus 01/24/22 01/24/22 01/23/22 05:10 01:19 17:55 RBC 3.09 L Hgb 8.8 L Hct 28.9 L MCHC 30.4 L RDW 14.9 H MPV 10.6 H Neut % (Auto) Lymph % (Auto) Lymph # (Auto) [place] # (Auto) PT INR APTT 181.8 H* 56.1 H Chloride Carbon Dioxide BUN Creatinine Glucose Calcium Urine Appearance Urine Protein Ur Leukocyte Esterase Urine WBC Ur Squamous Epith Cells Urine Bacteria Urine Mucus 01/23/22 01/23/22 01/23/22 12:13 04:38 04:38 RBC Hgb Hct MCHC RDW MPV Neut % (Auto) Lymph % (Auto) Lymph # (Auto) [place] # (Auto) PT 15.9 H INR 1.2 H APTT 121.9 H 66.5 H Chloride Carbon Dioxide 15 L BUN 44 H Creatinine 2.0 H Glucose 119 H Calcium 5.9 L* Urine Appearance Urine Protein Ur Leukocyte Esterase Urine WBC Ur Squamous Epith Cells Urine Bacteria Urine Mucus 01/23/22 01/22/22 01/22/22 04:38 22:30 11:40 RBC 3.17 L Hgb 9.2 L Hct 30.1 L MCHC 30.6 L RDW 14.6 H MPV 10.6 H Neut % (Auto) 86.7 H Lymph % (Auto) 10.7 L Lymph # (Auto) 0.72 L [place] # (Auto) PT INR APTT 69.3 H Chloride Carbon Dioxide BUN Creatinine Glucose Calcium Urine Appearance Turbid A Urine Protein 100 A Ur Leukocyte Esterase 500 A Urine WBC > 182 H Ur Squamous Epith Cells 8 H Urine Bacteria Many A Urine Mucus Few A 01/22/22 01/22/22 10:25 10:24 RBC 3.58 L Hgb 10.3 L Hct 34.0 L MCHC 30.3 L RDW 14.6 H MPV 10.9 H Neut % (Auto) Lymph % (Auto) Lymph # (Auto) [place] # (Auto) 0.97 H PT INR APTT Chloride Carbon Dioxide 19 L BUN 49 H Creatinine 2.4 H Glucose Calcium 7.0 L Urine Appearance Urine Protein Ur Leukocyte Esterase Urine WBC Ur Squamous Epith Cells Urine Bacteria Urine Mucus Meds: Medications Clopidogrel Bisulfate (Clopidogrel 75 Mg Tablet) 75 mg PO QDAY [facility] Last Admin: 01/24/22 08:51 Dose: 75 mg Documented by: Donepezil HCl (Donepezil 10 Mg Tablet) 10 mg PO [facility] Last Admin: 01/23/22 21:08 Dose: 10 mg Documented by: Heparin Sodium/Sodium Chloride (25,000 unit/ Premix) 500 mls @ 16.511 mls/hr IV .Q24H [facility]; Protocol Last Titration: 01/24/22 11:23 Dose: 12 unit/kg/hr, 14.152 mls/hr Documented by: Levothyroxine Sodium (Levothyroxine 100 Mcg Tablet) 100 mcg PO QDAY [facility] Last Admin: 01/24/22 07:25 Dose: 100 mcg Documented by: Lorazepam (Lorazepam 0.5 Mg Tablet) 0.5 mg PO Q4HP PRN PRN Reason: ANXIETY/SEDATION Last Admin: 01/23/22 15:58 Dose: 0.5 mg Documented by: Magnesium Oxide (Magnesium Oxide 400 Mg Tablet) 400 mg PO DAILY [facility] Last Admin: 01/24/22 08:51 Dose: 400 mg Documented by: Metoprolol Succinate (Metoprolol Succinate 25 Mg Tab.Xl.24h) 25 mg PO TID [facility] Last Admin: 01/24/22 14:21 Dose: 25 mg Documented by: Mycophenolate Mofetil (Mycophenolate 250 Mg Capsule) 750 mg PO BID [facility] Last Admin: 01/24/22 08:52 Dose: 750 mg Documented by: Omeprazole (Omeprazole 20 Mg Capsule) 20 mg PO DAILY [facility] Last Admin: 01/24/22 08:51 Dose: 20 mg Documented by: Galantamine 4 Mg (Tablet) 3 dose PO [facility] Last Admin: 01/23/22 21:09 Dose: 3 dose Documented by: Prednisone (Prednisone 5 Mg Tablet) 5 mg PO QDAY [facility] Last Admin: 01/24/22 08:52 Dose: 5 mg Documented by: Quetiapine Fumarate (Quetiapine 100 Mg Tablet) 100 mg PO [facility] Last Admin: 01/23/22 21:08 Dose: 100 mg Documented by: Tacrolimus (Tacrolimus 1 Mg Capsule) 3 mg PO BID [facility] Last Admin: 01/24/22 08:52 Dose: 3 mg Documented by: Vitamin D (Vitamin D3 125 Mcg Tablet) 125 mcg PO DAILY [facility] Last Admin: 01/24/22 08:52 Dose: 125 mcg Documented by: Warfarin Sodium (Warfarin 5 Mg Tablet) 5 mg PO DAILY@1400 [facility] Last Admin: 01/24/22 14:21 Dose: 5 mg Documented by: Warfarin Sodium (Warfarin Per Pharmacy) 1 order PO UD [facility] A/P Narrative A/P Narrative: In summary Ms. Ellsworth is a 66-year-old female with history of lupus coronary artery disease, CVA with residual facial droop, renal transplant on immunosuppressive therapy who presents with a week history of vertigo. Incidentally discovered bilateral pulmonary embolisms in the emergency room. Admitted for management of vertigo symptoms and new diagnosis of PE. Initially had refused admission since I felt her vertigo would be better served by a neurologist. However considering her acute pulmonary embolism, she needs urgent treatment with IV heparin ip. #Acute bilateral pulmonary embolisms Started on IV heparin drip on admission. 24 hours later, she was started on warfarin 01/23 2 PM. Continue heparin drip until her INR is above 2. Checking daily INR #Vertigo CTA H and N showed- 80% stenosis in the right vertebral at the foramen magnum, 60% stenosis in the left vertebral at the foramen magnum and 70% stenosis of the basilar artery above the foramen magnum. This seems to be from arterial stenotic lesions. Especially in the setting of her lupus, CVA, CAD-puts her at a high risk for being a vasculopath. # CAD-had ST elevation [place] in May 2021. Received cardiac stent. It has been 8 months since her stent placement. Cannot continue aspirin along with Plavix and systemic anticoagulation due to high risk of bleeding. Stop aspirin. Continue Plavix along with anticoagulation. Decision in accordance with the latest guidelines. As needed meclizine for symptom control #Systemic lupus erythematosus. She has the classic malar rash. Resume home medications-mycophenolate tacrolimus and prednisone. Hold torsemide for now to monitor renal function. #Hypertension-hold amlodipine for now. #Anxiety- PRN Ativan. Since she received CTA of head and neck, I would expect some creatinine bump in the next 2 to 3 days, from contrast-induced nephropathy. Will trend BMP. #DVT prophylaxis-Heparin drip as above. . Time Spent With Patient Time: Total time spent is greater than 50% in coordination of care (as documented) at patient's floor/unit and/or counseling patient: Total time spent with greater than 50% in coordination of care (as documented) at patient's floor/unit and/or counseling patient:: 25 - 35 minutes QUALITY VTE Deep Vein Thrombosis/Pulmonary Embolism Present on Admission: Yes
[2022-01-24] MEDS ORDERED: CALCIUM CHLORIDE 1,000 MG/10 ML SYRINGE IV ONE (14:45)
[2022-01-24] MEDS: HEPARIN SOD,PORK IN 0.45% NACL 25,000 UNIT in PREMIX 1 BAG IV SCH (16:25)
[2022-01-24] MEDS: QUEtiapine 100 MG TABLET PO SCH (20:45)
[2022-01-24] MEDS: DONEPEZIL 10 MG TABLET PO SCH (20:46)
[2022-01-25 06:50] LABS: Basophils # (Auto) 0.05 K/mcL (0.00-0.30); Basophils % (Auto) 0.6 % (0.0-2.0); Eosinophils # (Auto) 0.36 K/mcL (0.00-0.70); Eosinophils % (Auto) 4.4 % (0.0-7.0); Hematocrit 28.1 % (34.1-44.9); Hemoglobin 8.3 g/dL (11.2-15.7); Lymphocytes # (Auto) 2.04 K/mcL (1.50-4.80); Lymphocytes % (Auto) 25.2 % (15.5-49.0); Mean Cell Volume 95.9 fL (80.0-100.0); Mean Corpuscular HGB Conc 29.5 g/dL (31.0-36.0); Mean Platelet Volume 10.5 fL (7.4-10.4); Monocytes # (Auto) 0.53 K/mcL (0.10-0.90); Monocytes % (Auto) 6.5 % (1.0-12.0); Neutrophils % (Auto) 63.3 % (38.0-78.0); Platelet Count 247 K/mcL (140-440); RBC 2.93 M/mcL (3.59-5.38); Red Cell Distribution Width 14.9 % (11.5-14.5); WBC 8.1 K/mcL (4.5-11.0)
[2022-01-25 07:03] LABS: INR 1.5 (0.9-1.1); Prothrombin Time 18.4 sec (11.9-14.5)
[2022-01-25] MEDS ORDERED: HEPARIN 5,000 UNIT/ML VIAL IV ONE (07:30)
[2022-01-25 07:32] LABS: Blood Urea Nitrogen 45 mg/dL (8-23); Calcium 6.8 mg/dL (8.6-10.4); Carbon Dioxide 17 mmol/L (22-30); Chloride 112 mmol/L (96-108); Glomerular Filtration Rate 24; Glucose 110 mg/dL (70-105)
[2022-01-25] MEDS: LEVOTHYROXINE 100 MCG TABLET PO SCH (07:34)
[2022-01-25] MEDS: MYCOPHENOLATE 250 MG CAPSULE PO SCH ×2 (08:07→20:29)
[2022-01-25] MEDS: OMEPRAZOLE 20 MG CAPSULE PO SCH (08:07)
[2022-01-25] MEDS: METOPROLOL SUCCINATE 25 MG TAB.XL.24H PO SCH ×3 (08:07→20:30)
[2022-01-25] MEDS: predniSONE 5 MG TABLET PO SCH (08:07)
[2022-01-25] MEDS: CLOPIDOGREL 75 MG TABLET PO SCH (08:07)
[2022-01-25] MEDS: VITAMIN D3 125 MCG TABLET PO SCH (08:07)
[2022-01-25] MEDS: MAGNESIUM OXIDE 400 MG TABLET PO SCH (08:07)
[2022-01-25] MEDS: TACROLIMUS 1 MG CAPSULE PO SCH ×2 (08:07→20:30)
--- NOTE | 2022-01-25 11:58 | Internal Med Progress Note ---
SUBJECTIVE Subjective Patient information: Note initiated : 01/25/22 at 11:54 am Service Date, if different from initiated Date: [] Patient: Wendy Ellsworth a 66 y/o F admitted on 01/22/22 for Weakness. Chief Complaint: [] Principal diagnosis: Vertigo Interval history: Ms. 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 Patient seems to notice that it correlates with change in position and head movements. She denies any tinnitus or hearing loss. Denies any recent viral URI symptoms. Denies dizziness or feeling of passing out. Considering her history of lupus and CVAs, we obtained CTA of head and neck in the emergency room, which incidentally showed bilateral pulmonary embolism. When I saw her in the emergency room, she complained about bed not being comfor table. She preferred to lay still in one position so as to not trigger her vertigo episodes. She reported being uncomfortable on the bed and subsequently was not in a position to offer detailed history. 01/23-- Her vertigo is much better now. We discussed about warfarin and she was overwhelmed and teared up. Met her at bedside. He understood about indications and risks of warfarin therapy and explained it to the patient. She requests something to help her anxiety. 01/24- Occasional vertigo since yesterday. Overall better compared to before. Comfortable and better today. Anxiety better with PRN ativan. 01/25-vertigo better. No new symptoms. No shortness of breath or dyspnea. Constitutional Vitals: Vital Signs Temp Pulse Resp BP Pulse Ox 97.4 F 60 12 147/100 100 01/25/22 08:02 01/25/22 08:10 01/25/22 08:10 01/25/22 08:02 01/25/22 08:10 Period Temp Pulse Resp BP Sys/Reynoso Pulse Ox Last 24 Hr 97.0 F-98.4 F 50-71 0-23 138-163/77-101 96-100 Intake and Output 01/24/22 01/25/22 01/25/22 21:59 05:59 13:59 Intake Total 706 142 Output Total 1 Balance 705 142 Weight 64.41 kg Intake & Output: Intake & Output 01/24/22 01/25/22 01/25/22 21:59 05:59 13:59 Intake Total 706 142 Output Total 1 Balance 705 142 Weight 64.41 kg Intake: IV 106 142 Heparin/0.45%Ns 25,000 Unit In 106 142 Premix 1 Bag @ 14 UNIT/KG/HR 16 .511 mls/hr IV .Q24H BK Rx#: [id number] Oral 600 Output: # of times incontinent of urine 1 Other: Stool Size Moderate Stool Color Brown Stool Consistency Soft Formed # Bowel Movements 1 General appearance: average body habitus, cooperative and no acute distress Head Head exam: Present atraumatic and normocephalic Eye Eye exam: Present normal appearance Respiratory Respiratory exam: Present normal respiratory exam and CTAB; Absent accessory muscle use, decreased breath sounds or respiratory distress Cardiovascular Cardiovascular exam: Present normal rate and rhythm and RRR; Absent bradycardia, gallop, systolic murmur or tachycardia GI/Abdominal GI/Abdominal exam: Present soft Neurological Exam Neurological exam: Present alert and oriented X3; Absent altered or motor sensory deficit OBJ DATA Labs CBC & Chem 7: 01/25/22 05:20 01/25/22 05:20 Labs: Abnormal Lab Results 01/25/22 01/25/22 01/25/22 05:20 05:20 05:20 RBC 2.93 L Hgb 8.3 L Hct 28.1 L MCHC 29.5 L RDW 14.9 H MPV 10.5 H Neut % (Auto) Lymph % (Auto) Lymph # (Auto) PT 18.4 H INR 1.5 H APTT 54.0 H Chloride 112 H Carbon Dioxide 17 L BUN 45 H Creatinine 2.1 H Glucose 110 H Calcium 6.8 L Urine Appearance Urine Protein Ur Leukocyte Esterase Urine WBC Ur Squamous Epith Cells Urine Bacteria Urine Mucus 01/24/22 01/24/22 01/24/22 17:05 09:36 05:10 RBC Hgb Hct MCHC RDW MPV Neut % (Auto) Lymph % (Auto) Lymph # (Auto) PT INR APTT 106.1 H 67.2 H Chloride 110 H Carbon Dioxide 17 L BUN 46 H Creatinine 2.2 H Glucose Calcium 6.2 L Urine Appearance Urine Protein Ur Leukocyte Esterase Urine WBC Ur Squamous Epith Cells Urine Bacteria Urine Mucus 01/24/22 01/24/22 01/24/22 05:10 05:10 01:19 RBC 3.09 L Hgb 8.8 L Hct 28.9 L MCHC 30.4 L RDW 14.9 H MPV 10.6 H Neut % (Auto) Lymph % (Auto) Lymph # (Auto) PT 15.9 H INR 1.2 H APTT 181.8 H* Chloride Carbon Dioxide BUN Creatinine Glucose Calcium Urine Appearance Urine Protein Ur Leukocyte Esterase Urine WBC Ur Squamous Epith Cells Urine Bacteria Urine Mucus 01/23/22 01/23/22 01/23/22 17:55 12:13 04:38 RBC Hgb Hct MCHC RDW MPV Neut % (Auto) Lymph % (Auto) Lymph # (Auto) PT INR APTT 56.1 H 121.9 H Chloride Carbon Dioxide 15 L BUN 44 H Creatinine 2.0 H Glucose 119 H Calcium 5.9 L* Urine Appearance Urine Protein Ur Leukocyte Esterase Urine WBC Ur Squamous Epith Cells Urine Bacteria Urine Mucus 01/23/22 01/23/22 01/22/22 04:38 04:38 22:30 RBC 3.17 L Hgb 9.2 L Hct 30.1 L MCHC 30.6 L RDW 14.6 H MPV 10.6 H Neut % (Auto) 86.7 H Lymph % (Auto) 10.7 L Lymph # (Auto) 0.72 L PT 15.9 H INR 1.2 H APTT 66.5 H 69.3 H Chloride Carbon Dioxide BUN Creatinine Glucose Calcium Urine Appearance Urine Protein Ur Leukocyte Esterase Urine WBC Ur Squamous Epith Cells Urine Bacteria Urine Mucus 01/22/22 11:40 RBC Hgb Hct MCHC RDW MPV Neut % (Auto) Lymph % (Auto) Lymph # (Auto) PT INR APTT Chloride Carbon Dioxide BUN Creatinine Glucose Calcium Urine Appearance Turbid A Urine Protein 100 A Ur Leukocyte Esterase 500 A Urine WBC > 182 H Ur Squamous Epith Cells 8 H Urine Bacteria Many A Urine Mucus Few A Meds: Medications Clopidogrel Bisulfate (Clopidogrel 75 Mg Tablet) 75 mg PO QDAY [facility] Last Admin: 01/25/22 08:07 Dose: 75 mg Documented by: Donepezil HCl (Donepezil 10 Mg Tablet) 10 mg PO [facility] Last Admin: 01/24/22 20:46 Dose: 10 mg Documented by: Heparin Sodium/Sodium Chloride (25,000 unit/ Premix) 500 mls @ 16.511 mls/hr IV .Q24H [facility]; Protocol Last Titration: 01/25/22 07:26 Dose: 12 unit/kg/hr, 14.152 mls/hr Documented by: Levothyroxine Sodium (Levothyroxine 100 Mcg Tablet) 100 mcg PO QDAY [facility] Last Admin: 01/25/22 07:34 Dose: 100 mcg Documented by: Lorazepam (Lorazepam 0.5 Mg Tablet) 0.5 mg PO Q4HP PRN PRN Reason: ANXIETY/SEDATION Last Admin: 01/23/22 15:58 Dose: 0.5 mg Documented by: Magnesium Oxide (Magnesium Oxide 400 Mg Tablet) 400 mg PO DAILY [facility] Last Admin: 01/25/22 08:07 Dose: 400 mg Documented by: Metoprolol Succinate (Metoprolol Succinate 25 Mg Tab.Xl.24h) 25 mg PO TID [facility] Last Admin: 01/25/22 08:07 Dose: 25 mg Documented by: Mycophenolate Mofetil (Mycophenolate 250 Mg Capsule) 750 mg PO BID [facility] Last Admin: 01/25/22 08:07 Dose: 750 mg Documented by: Omeprazole (Omeprazole 20 Mg Capsule) 20 mg PO DAILY [facility] Last Admin: 01/25/22 08:07 Dose: 20 mg Documented by: Galantamine 4 Mg (Tablet) 3 dose PO [facility] Last Admin: 01/24/22 20:44 Dose: 3 dose Documented by: Prednisone (Prednisone 5 Mg Tablet) 5 mg PO QDAY [facility] Last Admin: 01/25/22 08:07 Dose: 5 mg Documented by: Quetiapine Fumarate (Quetiapine 100 Mg Tablet) 100 mg PO [facility] Last Admin: 01/24/22 20:45 Dose: 100 mg Documented by: Tacrolimus (Tacrolimus 1 Mg Capsule) 3 mg PO BID [facility] Last Admin: 01/25/22 08:07 Dose: 3 mg Documented by: Vitamin D (Vitamin D3 125 Mcg Tablet) 125 mcg PO DAILY [facility] Last Admin: 01/25/22 08:07 Dose: 125 mcg Documented by: Warfarin Sodium (Warfarin 5 Mg Tablet) 5 mg PO DAILY@1400 [facility] Last Admin: 01/24/22 14:21 Dose: 5 mg Documented by: Warfarin Sodium (Warfarin Per Pharmacy) 1 order PO [facility] [place] A/P Narrative A/P Narrative: In summary Ms. Ellsworth is a 66-year-old female with history of lupus coronary artery disease, CVA with residual facial droop, renal transplant on immunosuppressive therapy who presents with a week history of vertigo. Incidentally discovered bilateral pulmonary embolisms in the emergency room. Admitted for management of vertigo symptoms and new diagnosis of PE. Initially had refused admission since I felt her vertigo would be better served by a neurologist. However considering her acute pulmonary embolism, she needs urgent treatment with IV heparin drip. #Acute bilateral pulmonary embolisms Started on IV heparin drip on admission. 24 hours later, she was started on warfarin 01/23 2 PM. Continue heparin drip until her INR is above 2. Checking daily INR. INR 1.5 today. #Vertigo CTA H and N showed- 80% stenosis in the right vertebral at the foramen magnum, 60% stenosis in the left vertebral at the foramen magnum and 70% stenosis of the basilar artery above the foramen magnum. This seems to be from arterial stenotic lesions. Especially in the setting of her lupus, CVA, CAD-puts her at a high risk for being a vasculopath. # CAD-had ST elevation [place] in May 2021. Received cardiac stent. It has been 8 months since her stent placement. Cannot continue aspirin along with Plavix and systemic anticoagulation due to high risk of bleeding. Stop aspirin. Continue Plavix along with anticoagulation. Decision in accordance with the latest guidelines. As needed meclizine for symptom control #Systemic lupus erythematosus. She has the classic malar rash. Resume home medications-mycophenolate tacrolimus and prednisone. Hold torsemide for now to monitor renal function. Euvolemic #Hypertension-hold amlodipine for now. #Anxiety- PRN Ativan. Since she received CTA of head and neck, I would expect some creatinine bump in the next 2 to 3 days, from contrast-induced nephropathy. Will trend BMP. Renal function at baseline #DVT prophylaxis-Heparin drip +warfarin as above. . Time Spent With Patient Time: Total time spent is greater than 50% in coordination of care (as documented) at patient's floor/unit and/or counseling patient: Total time spent with greater than 50% in coordination of care (as documented) at patient's floor/unit and/or counseling patient:: 25 - 35 minutes QUALITY VTE Deep Vein Thrombosis/Pulmonary Embolism Present on Admission: Yes
[2022-01-25] MEDS: WARFARIN 5 MG TABLET PO SCH (14:17)
[2022-01-25] MEDS: HEPARIN SOD,PORK IN 0.45% NACL 25,000 UNIT in PREMIX 1 BAG IV SCH (15:52)
[2022-01-25] MEDS: QUEtiapine 100 MG TABLET PO SCH (20:29)
[2022-01-25] MEDS: DONEPEZIL 10 MG TABLET PO SCH (20:29)
[2022-01-26 06:36] LABS: Basophils # (Auto) 0.04 K/mcL (0.00-0.30); Basophils % (Auto) 0.6 % (0.0-2.0); Eosinophils # (Auto) 0.32 K/mcL (0.00-0.70); Eosinophils % (Auto) 4.6 % (0.0-7.0); Hematocrit 27.9 % (34.1-44.9); Hemoglobin 8.4 g/dL (11.2-15.7); Lymphocytes # (Auto) 1.86 K/mcL (1.50-4.80); Lymphocytes % (Auto) 26.5 % (15.5-49.0); Mean Cell Volume 95.2 fL (80.0-100.0); Mean Corpuscular HGB Conc 30.1 g/dL (31.0-36.0); Mean Platelet Volume 10.8 fL (7.4-10.4); Monocytes # (Auto) 0.55 K/mcL (0.10-0.90); Monocytes % (Auto) 7.8 % (1.0-12.0); Neutrophils % (Auto) 60.5 % (38.0-78.0); Platelet Count 243 K/mcL (140-440); RBC 2.93 M/mcL (3.59-5.38)
[2022-01-26 06:48] LABS: Blood Urea Nitrogen 42 mg/dL (8-23); Calcium 6.6 mg/dL (8.6-10.4); Carbon Dioxide 17 mmol/L (22-30); Chloride 112 mmol/L (96-108); Glomerular Filtration Rate 24; Glucose 93 mg/dL (70-105)
[2022-01-26 06:53] LABS: INR 2.2 (0.9-1.1); Partial Thromboplastin Time 87.5 sec (20.0-37.0); Prothrombin Time 25.7 sec (11.9-14.5)
[2022-01-26] MEDS: LEVOTHYROXINE 100 MCG TABLET PO SCH (07:49)
[2022-01-26] MEDS: CLOPIDOGREL 75 MG TABLET PO SCH (08:03)
[2022-01-26] MEDS: TACROLIMUS 1 MG CAPSULE PO SCH ×2 (08:03→20:10)
[2022-01-26] MEDS: MYCOPHENOLATE 250 MG CAPSULE PO SCH ×2 (08:03→20:07)
[2022-01-26] MEDS: METOPROLOL SUCCINATE 25 MG TAB.XL.24H PO SCH ×3 (08:04→20:07)
[2022-01-26] MEDS: OMEPRAZOLE 20 MG CAPSULE PO SCH (08:04)
[2022-01-26] MEDS: predniSONE 5 MG TABLET PO SCH (08:04)
[2022-01-26] MEDS: VITAMIN D3 125 MCG TABLET PO SCH (08:04)
[2022-01-26] MEDS: MAGNESIUM OXIDE 400 MG TABLET PO SCH (08:04)
--- NOTE | 2022-01-26 11:17 | Internal Med Progress Note ---
SUBJECTIVE Subjective Patient information: Note initiated : 01/26/22 at 11:13 am Service Date, if different from initiated Date: [] Patient: Wendy Ellsworth a 66 y/o F admitted on 01/22/22 for Weakness. Chief Complaint: [] Principal diagnosis: Vertigo Interval history: Ms. 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 Patient seems to notice that it correlates with change in position and head movements. She denies any tinnitus or hearing loss. Denies any recent viral URI symptoms. Denies dizziness or feeling of passing out. Considering her history of lupus and CVAs, we obtained CTA of head and neck in the emergency room, which incidentally showed bilateral pulmonary embolism. When I saw her in the emergency room, she complained about bed not being comfor table. She preferred to lay still in one position so as to not trigger her vertigo episodes. She reported being uncomfortable on the bed and subsequently was not in a position to offer detailed history. 01/23-- Her vertigo is much better now. We discussed about warfarin and she was overwhelmed and teared up. Met her at bedside. He understood about indications and risks of warfarin therapy and explained it to the patient. She requests something to help her anxiety. 01/24- Occasional vertigo since yesterday. Overall better compared to before. Comfortable and better today. Anxiety better with PRN ativan. 01/25-vertigo better. No new symptoms. No shortness of breath or dyspnea. 01/26-vertigo resolved. No new symptoms. No bleeding. Constitutional Vitals: Vital Signs Temp Pulse Resp BP Pulse Ox 97.2 F 72 21 161/84 99 01/26/22 08:01 01/26/22 04:00 01/26/22 08:15 01/26/22 08:01 01/26/22 04:00 Period Temp Pulse Resp BP Sys/Reynoso Pulse Ox Last 24 Hr 97.2 F-98.6 F 54-72 16-27 136-161/67-100 96-100 Intake and Output 03/29/22 03/30/22 03/30/22 21:59 05:59 13:59 Intake Total 168 300 120 Output Total 1 1 Balance 168 299 119 Weight 65.499 kg Intake & Output: Intake & Output 01/25/22 01/26/22 01/26/22 21:59 05:59 13:59 Intake Total 168 300 120 Output Total 1 1 Balance 168 299 119 Weight 65.499 kg Intake: IV 168 Heparin/0.45%Ns 25,000 Unit In 168 Premix 1 Bag @ 14 UNIT/KG/HR 16 .511 mls/hr IV .Q24H BK Rx#: [id number] Oral 300 120 Output: # of times incontinent of urine 1 1 Other: Meal Breakfast Percent of Meal Consumed 100% Urine Odor Normal # Voids 1 General appearance: average body habitus, cooperative and no acute distress Head Head exam: Present atraumatic and normocephalic Eye Eye exam: Present normal appearance Respiratory Respiratory exam: Present normal respiratory exam and CTAB; Absent accessory muscle use, decreased breath sounds or respiratory distress Cardiovascular Cardiovascular exam: Present normal rate and rhythm and RRR; Absent bradycardia, gallop, systolic murmur or tachycardia GI/Abdominal GI/Abdominal exam: Present soft Neurological Exam Neurological exam: Present alert and oriented X3; Absent altered or motor sensory deficit OBJ DATA Labs CBC & Chem 7: 01/26/22 05:24 01/26/22 05:23 Labs: Abnormal Lab Results 01/26/22 01/26/22 01/26/22 05:24 05:23 05:23 RBC 2.93 L Hgb 8.4 L Hct 27.9 L MCHC 30.1 L RDW 15.0 H MPV 10.8 H PT 25.7 H INR 2.2 H APTT 87.5 H Chloride 112 H Carbon Dioxide 17 L BUN 42 H Creatinine 2.1 H Glucose Calcium 6.6 L 01/25/22 01/25/22 01/25/22 20:03 12:58 05:20 RBC Hgb Hct MCHC RDW MPV PT INR APTT 52.4 H 107.8 H Chloride 112 H Carbon Dioxide 17 L BUN 45 H Creatinine 2.1 H Glucose 110 H Calcium 6.8 L 01/25/22 01/25/22 01/24/22 05:20 05:20 17:05 RBC 2.93 L Hgb 8.3 L Hct 28.1 L MCHC 29.5 L RDW 14.9 H MPV 10.5 H PT 18.4 H INR 1.5 H APTT 54.0 H 106.1 H Chloride Carbon Dioxide BUN Creatinine Glucose Calcium 01/24/22 01/24/22 01/24/22 09:36 05:10 05:10 RBC Hgb Hct MCHC RDW MPV PT 15.9 H INR 1.2 H APTT 67.2 H Chloride 110 H Carbon Dioxide 17 L BUN 46 H Creatinine 2.2 H Glucose Calcium 6.2 L 01/24/22 01/24/22 01/23/22 05:10 01:19 17:55 RBC 3.09 L Hgb 8.8 L Hct 28.9 L MCHC 30.4 L RDW 14.9 H MPV 10.6 H PT INR APTT 181.8 H* 56.1 H Chloride Carbon Dioxide BUN Creatinine Glucose Calcium 01/23/22 12:13 RBC Hgb Hct MCHC RDW MPV PT INR APTT 121.9 H Chloride Carbon Dioxide BUN Creatinine Glucose Calcium Meds: Medications Clopidogrel Bisulfate (Clopidogrel 75 Mg Tablet) 75 mg PO QDAY [facility] Last Admin: 01/26/22 08:03 Dose: 75 mg Documented by: Donepezil HCl (Donepezil 10 Mg Tablet) 10 mg PO [facility] Last Admin: 01/25/22 20:29 Dose: 10 mg Documented by: Heparin Sodium/Sodium Chloride (25,000 unit/ Premix) 500 mls @ 16.511 mls/hr IV .Q24H [facility]; Protocol Last Titration: 01/25/22 20:56 Dose: 12 unit/kg/hr, 14.152 mls/hr Documented by: Levothyroxine Sodium (Levothyroxine 100 Mcg Tablet) 100 mcg PO QDAY [facility] Last Admin: 01/26/22 07:49 Dose: 100 mcg Documented by: Lorazepam (Lorazepam 0.5 Mg Tablet) 0.5 mg PO Q4HP PRN PRN Reason: ANXIETY/SEDATION Last Admin: 01/23/22 15:58 Dose: 0.5 mg Documented by: Magnesium Oxide (Magnesium Oxide 400 Mg Tablet) 400 mg PO DAILY [facility] Last Admin: 01/26/22 08:04 Dose: 400 mg Documented by: Metoprolol Succinate (Metoprolol Succinate 25 Mg Tab.Xl.24h) 25 mg PO TID [facility] Last Admin: 01/26/22 08:04 Dose: 25 mg Documented by: Mycophenolate Mofetil (Mycophenolate 250 Mg Capsule) 750 mg PO BID [facility] Last Admin: 01/26/22 08:03 Dose: 750 mg Documented by: Omeprazole (Omeprazole 20 Mg Capsule) 20 mg PO DAILY [facility] Last Admin: 01/26/22 08:04 Dose: 20 mg Documented by: Galantamine 4 Mg (Tablet) 3 dose PO [facility] Last Admin: 01/25/22 20:30 Dose: 3 dose Documented by: Prednisone (Prednisone 5 Mg Tablet) 5 mg PO QDAY [facility] Last Admin: 01/26/22 08:04 Dose: 5 mg Documented by: Quetiapine Fumarate (Quetiapine 100 Mg Tablet) 100 mg PO [facility] Last Admin: 01/25/22 20:29 Dose: 100 mg Documented by: Tacrolimus (Tacrolimus 1 Mg Capsule) 3 mg PO BID [facility] Last Admin: 01/26/22 08:03 Dose: 3 mg Documented by: Vitamin D (Vitamin D3 125 Mcg Tablet) 125 mcg PO DAILY [facility] Last Admin: 01/26/22 08:04 Dose: 125 mcg Documented by: Warfarin Sodium (Warfarin 5 Mg Tablet) 5 mg PO DAILY@1400 [facility] Last Admin: 01/25/22 14:17 Dose: 5 mg Documented by: Warfarin Sodium (Warfarin Per Pharmacy) 1 order PO UD [facility] A/P Narrative A/P Narrative: In summary Ms. Ellsworth is a 66-year-old female with history of lupus coronary artery disease, CVA with residual facial droop, renal transplant on immunosup pressive therapy who presents with a week history of vertigo. Incidentally discovered bilateral pulmonary embolisms in the emergency room. Admitted for management of vertigo symptoms and new diagnosis of PE. Initially had refused admission since I felt her vertigo would be better served by a neurologist. However considering her acute pulmonary embolism, she needs urgent treatment with IV heparin drip. #Acute bilateral pulmonary embolisms Started on IV heparin drip on admission. 24 hours later, she was started on warfarin 01/23 2 PM. INR more than 2 today. Continue heparin drip until tiffanie rrow morning (around 7 AM) Warfarin dosing per pharmacy. Discharge tomorrow on p.o. warfarin. #Vertigo CTA H and N showed- 80% stenosis in the right vertebral at the foramen magnum, 60% stenosis in the left vertebral at the foramen magnum and 70% stenosis of the basilar artery above the foramen magnum. This seems to be from arterial stenotic lesions. Especially in the setting of her lupus, CVA, CAD-puts her at a high risk for being a vasculopath. # CAD-had ST elevation [place] in May 2021. Received cardiac stent. It has been 8 months since her stent placement. Cannot continue aspirin along with Plavix and systemic anticoagulation due to high risk of bleeding. Stop aspirin. Continue Plavix along with anticoagulation. Decision in accordance with the latest guidelines. As needed meclizine for symptom control #Systemic lupus erythematosus. She has the classic malar rash. Resume home medications-mycophenolate tacrolimus and prednisone. Hold torsemide for now to monitor renal function. Euvolemic #Hypertension-resume amlodipine #Anxiety- PRN Ativan. Since she received CTA of head and neck, I would expect some creatinine bump in the next 2 to 3 days, from contrast-induced nephropathy. Will trend BMP. Renal function at baseline #DVT prophylaxis-Heparin drip +warfarin as above. . Time Spent With Patient Time: Total time spent is greater than 50% in coordination of care (as documented) at patient's floor/unit and/or counseling patient: Total time spent with greater than 50% in coordination of care (as documented) at patient's floor/unit and/or counseling patient:: 25 - 35 minutes QUALITY VTE Deep Vein Thrombosis/Pulmonary Embolism Present on Admission: Yes
[2022-01-26] MEDS: WARFARIN 5 MG TABLET PO SCH (13:46)
[2022-01-26] MEDS: HEPARIN SOD,PORK IN 0.45% NACL 25,000 UNIT in PREMIX 1 BAG IV SCH (16:01)
[2022-01-26] MEDS: QUEtiapine 100 MG TABLET PO SCH (20:08)
[2022-01-26] MEDS: DONEPEZIL 10 MG TABLET PO SCH (20:08)
[2022-01-27 06:43] LABS: Basophils # (Auto) 0.05 K/mcL (0.00-0.30); Basophils % (Auto) 0.6 % (0.0-2.0); Eosinophils # (Auto) 0.37 K/mcL (0.00-0.70); Eosinophils % (Auto) 4.5 % (0.0-7.0); Hematocrit 29.5 % (34.1-44.9); Hemoglobin 8.8 g/dL (11.2-15.7); Lymphocytes # (Auto) 1.82 K/mcL (1.50-4.80); Lymphocytes % (Auto) 22.1 % (15.5-49.0); Mean Cell Volume 98.3 fL (80.0-100.0); Mean Corpuscular HGB Conc 29.8 g/dL (31.0-36.0); Mean Platelet Volume 10.5 fL (7.4-10.4); Monocytes # (Auto) 0.64 K/mcL (0.10-0.90); Monocytes % (Auto) 7.8 % (1.0-12.0); Platelet Count 249 K/mcL (140-440); Red Cell Distribution Width 15.2 % (11.5-14.5); WBC 8.2 K/mcL (4.5-11.0)
[2022-01-27 06:58] LABS: INR 2.7 (0.9-1.1); Prothrombin Time 29.9 sec (11.9-14.5)
[2022-01-27 07:13] LABS: Blood Urea Nitrogen 39 mg/dL (8-23); Calcium 6.8 mg/dL (8.6-10.4); Carbon Dioxide 16 mmol/L (22-30); Chloride 110 mmol/L (96-108); Glomerular Filtration Rate 27; Glucose 101 mg/dL (70-105)
--- NOTE | 2022-01-27 08:31 | Discharge Summary ---
Discharge Provider Provider Patient information: Note initiated : 01/27/22 at 8:21 am Service Date, if different from initiated Date: [] Patient: Wendy Ellsworth 66 y/o F admitted on 01/22/22 for Weakness. Chief Complaint: [] Date of admission: 01/22/22 19:05 Discharge date: 01/27/22 Primary care physician: Turner Devine Admitting clinician: Mike Medina Attending physician on admission: Mike Medina Consults: 01/22/22 Consult to Physician [CONS] Stat Comment: Consulting Provider: Mike Medina Reason For Exam: Physician to Consult Consult to Physician [CONS] Stat Comment: Consulting Provider: Mike Medina Reason For Exam: Physician to Consult Attending physician on discharge: Mike Medina Discharging clinician: Mike Medina Discharge Meds Discharge Medications Home Medications omeprazole 20 mg capsule,delayed release 20 mg PO DAILY 08/11/15 [History Confirmed 01/24/22 Last Taken 05/15/21] tacrolimus 1 mg capsule, immediate-release (Prograf) 3 mg PO Q12H cap 02/05/16 [History Confirmed 01/24/22 Last Taken 05/15/21] prednisone 5 mg tablet 5 mg PO QDAY 06/07/17 [History Confirmed 01/24/22 Last Taken 05/15/21] donepezil 10 mg tablet 10 mg PO HS 04/22/19 [History Confirmed 01/22/22 Last Taken 05/15/21] mycophenolate mofetil 250 mg capsule 750 mg PO BID 05/15/21 [History Confirmed 01/24/22 Last Taken 05/15/21] torsemide 20 mg PO DAILY 05/15/21 [History Confirmed 01/24/22 Last Taken 05/15/21] cholecalciferol (vitamin D3) 125 mcg (5,000 unit) capsule 125 mcg PO QDAY 01/22/22 [History Confirmed 01/24/22 Last Taken Unknown] clopidogrel 75 mg tablet 1 tab PO QDAY 01/22/22 [History Confirmed 01/24/22 Last Taken Unknown] denosumab 60 mg/mL subcutaneous syringe (Prolia) 60 mg SUBCUT Q3M 01/22/22 [History Confirmed 01/24/22 Last Taken Unknown] galantamine 4 mg tablet 12 mg PO HS 01/22/22 [History Confirmed 01/24/22 Last Taken Unknown] levothyroxine 100 mcg tablet 1 tab PO QDAY 01/22/22 [History Confirmed 01/24/22 Last Taken Unknown] metoprolol succinate 25 mg tablet,extended release 24 hr 25 mg PO TID 01/22/22 [History Confirmed 01/24/22 Last Taken Unknown] quetiapine 50 mg tablet 100 mg PO HS 01/22/22 [History Confirmed 01/24/22 Last Taken Unknown] magnesium oxide 400 mg PO QDAY 01/23/22 [History Confirmed 01/24/22 Last Taken Unknown] warfarin 3 mg tablet 5 mg PO DAILY@1400 10 Days #10 tab 01/27/22 [Rx Last Taken Unknown] COURSE Hospital Course Hospital course: Ms. 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 It also showed 80% stenosis of right vertebral artery and 60% stenosis of left vertebral artery. We admitted her for treatment of bilateral pulmonary embolisms, since she had CKD and could not be started on DOAC therapy imme diately. Started on IV heparin drip and warfarin initiation while inpatient. We continued heparin drip until her INR was therapeutic (24 hours after INR was >2). Discharged home on warfarin therapy with instructions to follow-up with her PCP for warfarin management. Incidentally her vertigo improved during this hospitalization. We will refer her to neurology follow-up for the stenosis of the vertebral and basilar artery. For her coronary artery disease, she had ST elevation [place] in May 2021. Received stent. Its been 8 months since her stent placement. We cannot have her on aspirin, Plavix and anticoagulation. As per the guidelines, she will be on Plavix and warfarin from here onwards. Discontinue aspirin. For her SLE, resume prednisone, mycophenolate and tacrolimus-does not change during this admission. CKD-resume torsemide. Discharge diagnosis: Acute bilateral pulmonary embolism Reason for admission: Bilateral pulmonary embolism Time Spent with Patient Time attestation: Total time spent providing and/or coordinating discharge services: EXAM Constitutional Vitals: Temp Pulse Resp BP Pulse Ox 97.2 F 39 L 21 85/72 97 01/27/22 08:01 01/27/22 08:13 01/27/22 08:13 01/27/22 08:01 01/27/22 08:13 General appearance: average body habitus, cooperative and no acute distress Head Head exam: Present atraumatic and normocephalic Eye Eye exam: Present normal appearance ENT ENT exam: Present mucous membranes moist Respiratory Respiratory exam: Present normal respiratory exam and CTAB; Absent accessory muscle use, rales, respiratory distress, stridor or wheezes Cardiovascular Cardiovascular exam: Present normal rate and rhythm and RRR; Absent bradycardia, diastolic murmur, gallop, irregular rhythm or rubs GI/Abdominal GI/Abdominal exam: Present normal bowel sounds and soft; Absent distended, guarding or rebound Expanded Lower Extremity Exam Hip exam: Present normal inspection; Absent swelling Back Exam Back exam: Present normal inspection; Absent CVA tenderness (L), CVA tenderness (R), paraspinal tenderness or vertebral tenderness Neurological Exam Neurological exam: Present alert and oriented X3; Absent abnormal gait or motor sensory deficit Discharge Data Data Completed and Pending Labs on day of discharge: Labs from last 24 hours 01/27/22 01/27/22 01/27/22 05:38 05:38 05:38 WBC RBC Hgb Hct MCV MCH MCHC RDW Plt Count MPV Neut % (Auto) Lymph % (Auto) Green % (Auto) Eos % (Auto) Baso % (Auto) Lymph # (Auto) Green # (Auto) Eos # (Auto) Baso # (Auto) Absolute Neutrophils PT 29.9 H INR 2.7 H APTT 75.4 H Sodium 140 Potassium 4.0 Chloride 110 H Carbon Dioxide 16 L Anion Gap 14.0 BUN 39 H Creatinine 1.9 H GFR Calculation 27 Glucose 101 Calcium 6.8 L 01/27/22 05:38 WBC 8.2 RBC 3.00 L Hgb 8.8 L Hct 29.5 L MCV 98.3 MCH 29.3 MCHC 29.8 L RDW 15.2 H Plt Count 249 MPV 10.5 H Neut % (Auto) 65.0 Lymph % (Auto) 22.1 Green % (Auto) 7.8 Eos % (Auto) 4.5 Baso % (Auto) 0.6 Lymph # (Auto) 1.82 Green # (Auto) 0.64 Eos # (Auto) 0.37 Baso # (Auto) 0.05 Absolute Neutrophils 5.36 PT INR APTT Sodium Potassium Chloride Carbon Dioxide Anion Gap BUN Creatinine GFR Calculation Glucose Calcium Preliminary micro results at discharge 01/22/22 10:20 Blood Culture - Preliminary Blood 01/22/22 10:14 Blood Culture - Preliminary Blood Discharge Plan Patient/Caregiver Discharge Instructions Activity: increase activity as tolerated Diet: Regular Diet Instructions: Warfarin (By mouth), Clopidogrel (By mouth), Pulmonary Embolism (GEN), Vertigo (GEN) Activity Restrictions/Additional Instructions: Start taking warfarin tomorrow on January 28 around noon daily. Prescriptions: New warfarin 3 mg tablet 5 mg PO DAILY@1400 10 Days Qty: 10 0RF Continued tacrolimus [Prograf] 1 mg capsule 3 mg PO Q12H 0RF prednisone 5 mg tablet 5 mg PO QDAY 0RF omeprazole 20 MG capsule 20 mg PO DAILY 0RF Rx Instructions: 30 mins. before morning meal donepezil 10 MG tablet 10 mg PO HS 0RF torsemide 20 mg PO DAILY 0RF mycophenolate mofetil 250 mg Capsule 750 mg PO BID 0RF clopidogrel 75 mg tablet 1 tab PO QDAY 0RF levothyroxine 100 mcg tablet 1 tab PO QDAY 0RF metoprolol succinate 25 mg tablet extended release 24 hr 25 mg PO TID 0RF cholecalciferol (vitamin D3) 125 mcg (5,000 unit) Capsule 125 mcg PO QDAY 0RF quetiapine 50 mg tablet 100 mg PO HS 0RF Prolia 60 mg/mL syringe 60 mg subcut Q3M 0RF galantamine 4 mg tablet 12 mg PO HS 0RF magnesium oxide 400 mg magnesium Tablet 400 mg PO QDAY 0RF Discontinued losartan 50 mg tablet 50 mg PO DAILY Qty: 90 0RF Follow Up Plan Follow up with: Deborah Jenkins MD [Physician] - (A referral has been sent, they will contact you to schedule an appointment Need appointment for management of vertebral and basilar artery stenosis, with vertigo.) Turner Devine MD [Primary Care Provider] - 02/02/22 4:30 pm Patient Disposition: Home, Self-Care Overall status at discharge: patient is back to baseline Discharge Orders: Discharge Order (Routine); Ordered 01/27/22 Ordered By: Mike CONROY VTE Deep Vein Thrombosis/Pulmonary Embolism Present on Admission: Yes
[2022-01-27] MEDS: MAGNESIUM OXIDE 400 MG TABLET PO SCH (08:33)
[2022-01-27] MEDS: VITAMIN D3 125 MCG TABLET PO SCH (08:33)
[2022-01-27] MEDS: predniSONE 5 MG TABLET PO SCH (08:33)
[2022-01-27] MEDS: OMEPRAZOLE 20 MG CAPSULE PO SCH (08:34)
[2022-01-27] MEDS: LEVOTHYROXINE 100 MCG TABLET PO SCH (08:34)
[2022-01-27] MEDS: MYCOPHENOLATE 250 MG CAPSULE PO SCH (08:34)
[2022-01-27] MEDS: CLOPIDOGREL 75 MG TABLET PO SCH (08:35)
[2022-01-27] MEDS: TACROLIMUS 1 MG CAPSULE PO SCH (08:37)
[2022-01-27] MEDS ORDERED: TORSEMIDE 20 MG TABLET PO SCH (09:00)
[2022-01-27] MEDS: METOPROLOL SUCCINATE 25 MG TAB.XL.24H PO SCH (09:43)
== END 2022-01-27 10:50 | disposition home or self-care (01) | DRG 176 ==
LOC: ED 09:30 → ICU 19:05
PROVIDERS: ADMIT Internal Medicine Medical Oncology; ATTEND Internal Medicine Medical Oncology

== ENCOUNTER 2022-02-19 09:13 | Inpatient (IN) ==
[2022-02-19] MEDS ORDERED: morphine 4 MG/ML VIAL IV ONE (09:19)
[2022-02-19 09:41] LABS: POC Calcium, Ionized 1.36 (1.16-1.32); POC Creatinine 2.7 (0.6-1.2); POC Potassium 4.6 (3.3-5.1)
[2022-02-19 10:13] LABS: Basophils # (Auto) 0.04 K/mcL (0.00-0.30); Basophils % (Auto) 0.3 % (0.0-2.0); Eosinophils # (Auto) 0.19 K/mcL (0.00-0.70); Eosinophils % (Auto) 1.5 % (0.0-7.0); Hematocrit 32.9 % (34.1-44.9); Hemoglobin 10.1 g/dL (11.2-15.7); Lymphocytes # (Auto) 2.31 K/mcL (1.50-4.80); Lymphocytes % (Auto) 18.3 % (15.5-49.0); Mean Cell Volume 94.8 fL (80.0-100.0); Mean Corpuscular HGB Conc 30.7 g/dL (31.0-36.0); Mean Platelet Volume 10.1 fL (7.4-10.4); Monocytes # (Auto) 1.06 K/mcL (0.10-0.90); Monocytes % (Auto) 8.4 % (1.0-12.0); Neutrophils % (Auto) 71.5 % (38.0-78.0); Platelet Count 311 K/mcL (140-440); RBC 3.47 M/mcL (3.59-5.38); Red Cell Distribution Width 15.9 % (11.5-14.5); WBC 12.6 K/mcL (4.5-11.0)
--- NOTE | 2022-02-19 10:47 | Emergency Department Note ---
Abdominal Pain HPI General Chief Complaint: Abdominal Pain Stated Complaint: abdominal pain Time Seen by Provider: 02/19/22 09:19 Source: patient Mode of arrival: ambulatory Limitations: no limitations History of Present Illness HPI Narrative: Narrative: 67-year-old female presents the emergency department complaining of left lower quadrant abdominal pain. Patient has history of diverticulosis says it feels very similar to that. Says that started today. She says the pains about a 6 out of 10 sharp stabbing pain also left lower quadrant there is no nausea or any vomiting no other complaints otherwise she is had no fevers chills she has noted some diarrhea. Denying any other symptoms otherwise. Related Data Home Medications Medication Instructions Recorded Confirmed omeprazole 20 mg capsule,delayed 20 mg PO DAILY 08/11/15 01/24/22 release tacrolimus 1 mg capsule, 3 mg PO Q12H cap 02/05/16 01/24/22 immediate-release (Prograf) prednisone 5 mg tablet 5 mg PO QDAY 06/07/17 01/24/22 donepezil 10 mg tablet 10 mg PO HS 04/22/19 01/22/22 mycophenolate mofetil 250 mg 750 mg PO BID 05/15/21 01/24/22 capsule torsemide 20 mg PO DAILY 05/15/21 01/24/22 cholecalciferol (vitamin D3) 125 125 mcg PO QDAY 01/22/22 01/24/22 mcg (5,000 unit) capsule clopidogrel 75 mg tablet 1 tab PO QDAY 01/22/22 01/24/22 denosumab 60 mg/mL subcutaneous 60 mg SUBCUT Q3M 01/22/22 01/24/22 syringe (Prolia) galantamine 4 mg tablet 12 mg PO HS 01/22/22 01/24/22 levothyroxine 100 mcg tablet 1 tab PO QDAY 01/22/22 01/24/22 metoprolol succinate 25 mg 25 mg PO TID 01/22/22 01/24/22 tablet,extended release 24 hr quetiapine 50 mg tablet 100 mg PO HS 01/22/22 01/24/22 magnesium oxide 400 mg PO QDAY 01/23/22 01/24/22 Previous Rx's Medication Instructions Recorded apixaban 5 mg tablet (Eliquis) 5 mg PO BID #60 tab 02/16/22 Allergies Allergy/AdvReac Type Severity Reaction Status Date / Time ciprofloxacin AdvReac Intermediate Cramping Verified 02/19/22 09:15 of the Muscles levofloxacin AdvReac Intermediate Other Verified 02/19/22 09:15 Quinolones AdvReac Intermediate Muscle Pain Verified 02/19/22 09:15 Cephalosporins AdvReac Mild Rash Verified 02/19/22 09:15 cilastatin [From Primaxin] AdvReac Mild Rash Verified 02/19/22 09:15 droperidol [From Inapsine] AdvReac Mild Rash Verified 02/19/22 09:15 imipenem [From Primaxin] AdvReac Mild Rash Verified 02/19/22 09:15 Labetalol [From Trandate] AdvReac Mild Rash Verified 02/19/22 09:15 meperidine [From Demerol] AdvReac Mild Rash Verified 02/19/22 09:15 metronidazole [From Flagyl] AdvReac Mild Rash Verified 02/19/22 09:15 pentazocine [From Talwin] AdvReac Mild Rash Verified 02/19/22 09:15 phenobarbital AdvReac Mild Rash Verified 02/19/22 09:15 propoxyphene AdvReac Mild Rash Verified 02/19/22 09:15 [From Darvocet-N] tobramycin AdvReac Mild Rash Verified 02/19/22 09:15 Review of Systems ROS ROS Narrative: Narrative: All systems ED: reviewed and negative except as stated. [facility] Narrative Patient History Narrative: Narrative: Medical/Surgical/Family History All Active Problems (Updated 02/19/22 @ 11:24 by Felix Sadler DO) Vertigo (Acute) Gout flare (Acute) Pulmonary emboli (Acute) Stenosis of both vertebral arteries (Acute) Acute dyspnea (Acute) CHF (congestive heart failure) (Acute) CAD (coronary artery disease) (Acute) Atrial fibrillation (Acute) SBO (small bowel obstruction) (Acute) Diverticulitis of sigmoid colon (Acute) Nausea & vomiting (Acute) Matos's palsy (Acute) Diverticulitis (Acute) Constipation (Acute) Acute diverticulitis of intestine (Acute) Kidney transplant recipient (Acute) [id number] kidney injury (Acute) Cardiomegaly (Acute) Elevated brain natriuretic peptide (BNP) level (Acute) Fall (Acute) Hematoma of parietal scalp (Acute) Depression with suicidal ideation (Acute) Acute UTI (urinary tract infection) (Acute) Ureterolithiasis (Acute) Compression fracture of T11 vertebra (Acute) Suicide attempt (Acute) Laceration (Acute) Acute UTI (Acute) Anemia (Acute) CRF (chronic renal failure) (Acute) Acute alteration in mental status (Acute) ST elevation (STEMI) myocardial infarction (Acute) Right shoulder pain (Acute) Acute right-sided thoracic back pain (Acute) Hypertension (Acute) Urinary frequency (Acute) Other [place] [facility] (current) drug therapy (Chronic) Secondary hyperparathyroidism of renal origin (Chronic) Hyperlipidemia (Chronic) Glaucoma (Chronic) Macular degeneration (Chronic) Diverticulitis (Chronic) Idiopathic aseptic necrosis of femur (Chronic) Osteoporosis (Chronic) Vitamin D deficiency (Chronic) Anemia (Chronic) Essential hypertension (Chronic) Chronic kidney disease (CKD) (Chronic) Medical History Anemia Borderline hyperglycemia Chronic kidney disease (CKD) Stage 3 Dislocation, finger, metacarpophalangeal joint Diverticulitis Essential hypertension Glaucoma Hyperlipidemia Idiopathic aseptic necrosis of femur Macular degeneration Nausea & vomiting 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 Patient with chronic kidney insufficiency Osteoporosis Other [place] [facility] (current) drug therapy Phlebitis and thrombophlebitis Secondary hyperparathyroidism of renal origin Urinary tract infection Vitamin D deficiency Surgical History 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 Family history of AICD (automatic internal cardiac defibrillator) (~1996) History of hand surgery (~08/2015) History of hysterectomy (~1978) History of intraocular lens implant February & March 1989 History of kidney transplant (07/27/00) History of knee surgery (~04/2009) History of orthopedic surgery (04/28/96) mohamud placement in right leg 04/28/96 @ [place]; muscle relocation and skin grafts of right leg 04/29/96 @ [place] History of parathyroidectomy (11/27/95) History of surgery fistula placement February 1993 @ [place]; fistula declot; Graft placement upper right arm 10/1999 @ [place] Kidney replaced by transplant Status post biopsy of kidney (~03/2007) Family History Father Hypertension CVA (cerebral vascular accident) Colon polyps needed surgical resection/partial colectomy Prostate cancer Hyperlipidemia Social History Smoking Status: Never smoker Alcohol Intake Frequency: does not drink Substance Use: does not use Exam Narrative Narrative: Narrative: Vital signs noted General: Awake. Alert. No distress. Skin: Warm. Dry. No rash. HEENT: NCAT. PERRL. EOMI. No conjunctivitis. No nystagmus. No pharyngitis. Membranes moist. Neck: No PTP. Good ROM. No meningeal signs. No stridor. No thyromegaly. No JVD. Cardiovascular: RRR. Respiratory: No respiratory distress. Gastrointestinal: Abdomen soft. Mild tenderness when palpating the left lower quadrant no pain anywhere else on palpation. No distention. Normal bowel sounds. No palpable organomegaly or masses. Back: No deformity. No CVAT. Musculoskeletal: No tenderness. No swelling. No erythema. No edema. Good peripheral pulses x 4 Lymphatic: No palpable adenopathy. Neurological: No focal neurological deficits observed General Limitations: no limitations Course Vital Signs Vital signs: Vital Signs Temperature 97.7 F 02/19/22 09:14 Pulse Rate 60 02/19/22 09:14 Respiratory Rate 16 02/19/22 09:14 Blood Pressure 190/100 02/19/22 09:14 Pulse Oximetry (%) 98 02/19/22 09:14 Temperature 97.7 F 02/19/22 09:14 Pulse Rate 70 02/19/22 11:01 Respiratory Rate 16 02/19/22 09:14 Blood Pressure 172/92 02/19/22 11:01 Pulse Oximetry (%) 92 02/19/22 11:01 [facility] MDM Narrative Medical decision making narrative: Narrative: Patient presents with left lower quadrant pain. Worried about possible diverticulitis. Did get basic labs CMP showed an elevated creatinine right around her baseline so unable to do a rested study noncontrast is pending at this time. Morphine given for pain. Does have a mild leukocytosis of 12. Disposition will be pending results of the CAT scan. Patient's pain is well controlled with the morphine. Patient's labs did show a mild leukocytosis. She does have the worsening creatinine otherwise there is no other changes with labs. CT was done which shows sigmoid diverticulitis as well as possible mild small bowel obstruction that is mild per radiology read. I spoke with Dr. Garay the on-call general surgeon who agreed patient does need to be admitted he wants the patient is admitted I did put orders in for Zofran and pain meds and he will put the rest of the orders in. Patient will be admitted to observation. Patient updated of the plan and is okay with this. Family is updated as well. Lab Data Result diagrams: 02/19/22 09:27 Labs: Lab Results 02/19/22 02/19/22 Range/Units 09:27 09:38 WBC 12.6 H (4.5-11.0) K/mcL RBC 3.47 L (3.59-5.38) M/mcL Hgb 10.1 L (11.2-15.7) g/dL Hct 32.9 L (34.1-44.9) % POC Hct 32.0 L (36-48) MCV 94.8 (80.0-100.0) fL MCH 29.1 (26.0-34.0) pg MCHC 30.7 L (31.0-36.0) g/dL RDW 15.9 H (11.5-14.5) % Plt Count 311 (140-440) K/mcL MPV 10.1 (7.4-10.4) fL Neut % (Auto) 71.5 (38.0-78.0) % Lymph % (Auto) 18.3 (15.5-49.0) % Grady % (Auto) 8.4 (1.0-12.0) % Eos % (Auto) 1.5 (0.0-7.0) % Baso % (Auto) 0.3 (0.0-2.0) % Lymph # (Auto) 2.31 (1.50-4.80) K/mcL Grady # (Auto) 1.06 H (0.10-0.90) K/mcL Eos # (Auto) 0.19 (0.00-0.70) K/mcL Baso # (Auto) 0.04 (0.00-0.30) K/mcL Absolute Neutrophils 8.99 H (1.80-8.00) K/mcL POC Sodium 140 (133-145) POC Potassium 4.6 (3.3-5.1) POC Chloride 107 (96-108) POC Total CO2 23.0 (22-30) POC BUN 53 H (6-20) POC Creatinine 2.7 H (0.6-1.2) POC Glucose 100 (70-105) POC WB Ioniz Calcium 1.36 H (1.16-1.32) Discharge Plan Patient/Caregiver Discharge Instructions Pt seen by REALTIME COURT REPORTER/PA only: No Clinical Impression: SBO (small bowel obstruction), Diverticulitis of sigmoid colon Patient Disposition: Xfer As Outpt/Obs ([facility]) Condition: Fair Follow up with: Turner Devine MD [Primary Care Provider] - Prescriptions: No Action tacrolimus [Prograf] 1 mg capsule 3 mg PO Q12H 0RF prednisone 5 mg tablet 5 mg PO QDAY 0RF omeprazole 20 MG capsule 20 mg PO DAILY 0RF Rx Instructions: 30 mins. before morning meal donepezil 10 MG tablet 10 mg PO HS 0RF torsemide 20 mg PO DAILY 0RF mycophenolate mofetil 250 mg Capsule 750 mg PO BID 0RF clopidogrel 75 mg tablet 1 tab PO QDAY 0RF levothyroxine 100 mcg tablet 1 tab PO QDAY 0RF metoprolol succinate 25 mg tablet extended release 24 hr 25 mg PO TID 0RF cholecalciferol (vitamin D3) 125 mcg (5,000 unit) Capsule 125 mcg PO QDAY 0RF quetiapine 50 mg tablet 100 mg PO HS 0RF Prolia 60 mg/mL syringe 60 mg subcut Q3M 0RF galantamine 4 mg tablet 12 mg PO HS 0RF magnesium oxide 400 mg magnesium Tablet 400 mg PO QDAY 0RF Eliquis 5 mg tablet 5 mg PO BID Qty: 60 0RF
[2022-02-19] MEDS ORDERED: morphine 2 MG/ML VIAL IV PRN (11:13)
[2022-02-19] MEDS ORDERED: HYDROmorphone 0.5 MG/0.5 ML SYRINGE IV PRN (11:13)
[2022-02-19] MEDS ORDERED: ONDANSETRON 4 MG/2 ML VIAL IV ONE (11:13)
[2022-02-19] MEDS ORDERED: ONDANSETRON 4 MG/2 ML VIAL IV PRN (14:25)
[2022-02-19] MEDS ORDERED: PROMETHAZINE 25 MG/ML VIAL IV PRN (14:25)
--- NOTE | 2022-02-19 15:15 | Cat Scan Report ---
CLINICAL INFORMATION: Left lower quadrant pain. History of diverticulitis COMPARISON: Abdomen and pelvic CT 05/14/2021 TECHNIQUE: 0.625 mm helical slices were obtained from the mid heart through the subtrochanteric regions. Following reconstruction, 2.5 mm sagittal, coronal and axial reformatted images were processed and reviewed at bone and soft tissue windows.The exam was performed using radiation dose optimization techniques including, but not limited to, automated exposure control, adjustment of the mA and/or kV according to patient size and use of iterative reconstruction technique. FINDINGS: The lung bases show chronic bronchitis with scattered scarring. There are no effusions. The heart is markedly enlarged with calcific plaque scattered in the coronary arteries. There is also calcification in the mitral valve. Pacemaker lead in stable satisfactory position. Abdominal images show cholecystectomy changes. Common bile duct normal caliber: 6 mm. The noncontrasted liver and spleen are normal. 20 mm benign adenoma left adrenal gland demonstrates long-term stability. Right adrenal gland normal. Marked pancreatic atrophy is unchanged. There is also severe atrophy of both kidneys with scattered simple cysts compatible with end-stage renal failure. No change. There is no free air, free fluid and no adenopathy. Pelvic images show urinary bladder to be normal. Hysterectomy and oophorectomy changes appreciated. Multiple diverticula present in the sigmoid colon which demonstrates wall thickening and inflamed diverticuli and phlegmon in the perisigmoid fat compatible with simple sigmoid diverticulitis. The stomach, duodenum and jejunum are moderately dilated to the left lower quadrant small bowel loops juxtaposed to the sigmoid sigmoid inflammation. The distal small bowel is decompressed. Presumably there are inflammatory adhesions tethering the small bowel to the sigmoid 10.6 x 5.3 cm transplanted kidney is seen in the right iliac fossa. A vague 17 mm high attenuation lesion is seen in the posterior cortex of the transplant has been stable since the earliest CT should be considered benign. Mild chronic T11 compression fracture is identical to the CT nearly one year prior 05/14/2021. Vague patchy sclerosis and radiolucency in the right superior femoral head is unchanged with suggest developing avascular necrosis. IMPRESSION: 1. Diverticulitis involving the proximal/ mid sigmoid colon. Interestingly, there is a partial small bowel obstruction with a transition point in the juxtaposed small bowel loops in the left lower quadrant. Suspect inflammatory adhesions. 2. Severe bilateral renal atrophy compatible with end-stage renal failure. A few small simple cysts in both kidneys are stable. Renal transplant in the right iliac fossa is normal size. A 17 mm high attenuation lesion posterior cortex of the transplant is unchanged and presumably insignificant likely a small adenoma 3. 20 mm benign adenoma left adrenal gland demonstrating long-term stability 4. Moderate chronic T11 compression fracture stable 5. Suspect developing avascular necrosis in the superior right femoral head 6. Severe pancreatic atrophy-stable Interpreted and Authenticated by: Raul De La Torre 02/19/22
[2022-02-19] MEDS: ACETAMINOPHEN 1,000 MG/100 ML BAG IV SCH ×2 (15:31→21:42)
[2022-02-19] MEDS: PIPERACILLIN SODIUM/TAZOBACTAM 2.25 GM in DEXTROSE 5% IN WATER 50 ML IV SCH ×2 (16:42→21:43)
[2022-02-19] MEDS: 0.9 % SODIUM CHLORIDE 1,000 ML IV SCH (16:42)
[2022-02-19] MEDS: PANTOPRAZOLE 40 MG VIAL IV SCH (17:55)
--- NOTE | 2022-02-19 18:04 | General Surg History&Physical ---
HPI History of Present Illness Patient information: Note initiated : 02/19/22 at 6:04 pm Service Date, if different from initiated Date: [] Patient: Wendy Ellsworth 67 y/o F admitted on 02/19/22 for abdominal pain. Chief Complaint: [] History of present illness: Ms. Ellsworth is a 67 year old F PFSH PFSH All Active Problems (Updated 02/19/22 @ 11:24 by Felix Sadler DO) Vertigo (Acute) Gout flare (Acute) Pulmonary emboli (Acute) Stenosis of both vertebral arteries (Acute) Acute dyspnea (Acute) CHF (congestive heart failure) (Acute) CAD (coronary artery disease) (Acute) Atrial fibrillation (Acute) SBO (small bowel obstruction) (Acute) Diverticulitis of sigmoid colon (Acute) Nausea & vomiting (Acute) Matos's palsy (Acute) Diverticulitis (Acute) Constipation (Acute) Acute diverticulitis of intestine (Acute) Kidney transplant recipient (Acute) Yaqkk-ag-[id number] kidney injury (Acute) Cardiomegaly (Acute) Elevated brain natriuretic peptide (BNP) level (Acute) Fall (Acute) Hematoma of parietal scalp (Acute) Depression with suicidal ideation (Acute) Acute UTI (urinary tract infection) (Acute) Ureterolithiasis (Acute) Compression fracture of T11 vertebra (Acute) Suicide attempt (Acute) Laceration (Acute) Acute UTI (Acute) Anemia (Acute) CRF (chronic renal failure) (Acute) Acute alteration in mental status (Acute) ST elevation (STEMI) myocardial infarction (Acute) Right shoulder pain (Acute) Acute right-sided thoracic back pain (Acute) Hypertension (Acute) Urinary frequency (Acute) 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) Secondary hyperparathyroidism of renal origin (Chronic) Hyperlipidemia (Chronic) Glaucoma (Chronic) Macular degeneration (Chronic) Diverticulitis (Chronic) Idiopathic aseptic necrosis of femur (Chronic) Osteoporosis (Chronic) Vitamin D deficiency (Chronic) Anemia (Chronic) Essential hypertension (Chronic) Chronic kidney disease (CKD) (Chronic) Medical History Anemia Borderline hyperglycemia Chronic kidney disease (CKD) Stage 3 Dislocation, finger, metacarpophalangeal joint Diverticulitis Essential hypertension Glaucoma Hyperlipidemia Idiopathic aseptic necrosis of femur Macular degeneration Nausea & vomiting 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 Patient with chronic kidney insufficiency Osteoporosis Other fpc (current) drug therapy Phlebitis and thrombophlebitis Secondary hyperparathyroidism of renal origin Urinary tract infection Vitamin D deficiency Surgical History 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 Family history of AICD (automatic internal cardiac defibrillator) (~1996) History of hand surgery (~08/2015) History of hysterectomy (~1978) History of intraocular lens implant February & March 1989 History of kidney transplant (07/27/00) History of knee surgery (~04/2009) History of orthopedic surgery (04/28/96) mohamud placement in right leg 04/28/96 @ [place]; muscle relocation and skin grafts of right leg 04/29/96 @ [place] History of parathyroidectomy (11/27/95) History of surgery fistula placement February 1993 @ [place]; fistula declot; Graft placement upper right arm 10/1999 @ [place] Kidney replaced by transplant Status post biopsy of kidney (~03/2007) Family History Father Hypertension CVA (cerebral vascular accident) Colon polyps needed surgical resection/partial colectomy Prostate cancer Hyperlipidemia Social History alcohol intake frequency: does not drink substance use type: does not use MEDS/ALLERGIES Home Medications and Allergies Home Medications Medication Instructions Recorded Confirmed Type omeprazole 20 mg capsule,delayed 20 mg PO DAILY 08/11/15 02/19/22 History release tacrolimus 1 mg capsule, 3 mg PO BID cap 02/05/16 02/19/22 History immediate-release (Prograf) prednisone 5 mg tablet 5 mg PO QDAY 06/07/17 02/19/22 History donepezil 10 mg tablet 10 mg PO HS 04/22/19 02/19/22 History mycophenolate mofetil 250 mg 750 mg PO BID 05/15/21 02/19/22 History capsule torsemide 20 mg PO DAILY 05/15/21 02/19/22 History cholecalciferol (vitamin D3) 125 125 mcg PO QDAY 01/22/22 02/19/22 History mcg (5,000 unit) capsule clopidogrel 75 mg tablet 1 tab PO QDAY 01/22/22 02/19/22 History denosumab 60 mg/mL subcutaneous 60 mg SUBCUT Q3M 01/22/22 01/24/22 History syringe (Prolia) levothyroxine 100 mcg tablet 1 tab PO QDAY 01/22/22 02/19/22 History metoprolol succinate 25 mg 25 mg PO BID 01/22/22 02/19/22 History tablet,extended release 24 hr quetiapine 50 mg tablet 100 mg PO HS 01/22/22 02/19/22 History magnesium oxide 480 mg PO QDAY 01/23/22 02/19/22 History apixaban 5 mg tablet (Eliquis) 5 mg PO BID #60 tab 02/16/22 02/19/22 Rx Centrum Silver Women 1 tab PO DAILY 02/19/22 02/19/22 History allopurinol 100 mg tablet 1 tab PO QDAY 02/19/22 02/19/22 History atorvastatin 80 mg tablet 1 tab PO QDAY 02/19/22 02/19/22 History losartan 50 mg tablet 1 tab PO QDAY 02/19/22 02/19/22 History potassium 1 tab PO DAILY 02/19/22 02/19/22 History Allergies Allergy/AdvReac Type Severity Reaction Status Date / Time ciprofloxacin AdvReac Intermediate Cramping Verified 02/19/22 09:15 of the Muscles levofloxacin AdvReac Intermediate Other Verified 02/19/22 09:15 Quinolones AdvReac Intermediate Muscle Pain Verified 02/19/22 09:15 Cephalosporins AdvReac Mild Rash Verified 02/19/22 09:15 cilastatin [From Primaxin] AdvReac Mild Rash Verified 02/19/22 09:15 droperidol [From Inapsine] AdvReac Mild Rash Verified 02/19/22 09:15 imipenem [From Primaxin] AdvReac Mild Rash Verified 02/19/22 09:15 Labetalol [From Trandate] AdvReac Mild Rash Verified 02/19/22 09:15 meperidine [From Demerol] AdvReac Mild Rash Verified 02/19/22 09:15 metronidazole [From Flagyl] AdvReac Mild Rash Verified 02/19/22 09:15 pentazocine [From Talwin] AdvReac Mild Rash Verified 02/19/22 09:15 phenobarbital AdvReac Mild Rash Verified 02/19/22 09:15 propoxyphene AdvReac Mild Rash Verified 02/19/22 09:15 [From Darphucet-N] tobramycin AdvReac Mild Rash Verified 02/19/22 09:15 Physical Examination Vital Signs Vital signs: Temp Pulse Resp BP Pulse Ox 97.3 F 79 16 155/86 97 02/19/22 15:20 02/19/22 15:20 02/19/22 15:20 02/19/22 15:20 02/19/22 15:20 Results Labs Result diagrams: 02/19/22 09:27 Labs: Abnormal lab results 02/19/22 02/19/22 02/19/22 Range/Units 09:27 09:27 09:38 WBC 12.6 H (4.5-11.0) K/mcL RBC 3.47 L (3.59-5.38) M/mcL Hgb 10.1 L (11.2-15.7) g/dL Hct 32.9 L (34.1-44.9) % POC Hct 32.0 L (36-48) MCHC 30.7 L (31.0-36.0) g/dL RDW 15.9 H (11.5-14.5) % [place] # (Auto) 1.06 H (0.10-0.90) K/mcL Absolute Neutrophils 8.99 H (1.80-8.00) K/mcL POC BUN 53 H (6-20) POC Creatinine 2.7 H (0.6-1.2) POC WB Ioniz Calcium 1.36 H (1.16-1.32) NT-Pro-B Natriuret Pep 20388.0 H (<125.0) pg/mL All other labs normal. A/P Time Spent With Patient Time: Total time spent is greater than 50% in coordination of care (as documented) at patient's floor/unit and/or counseling patient:
[2022-02-19] MEDS: TACROLIMUS 1 MG CAPSULE PO SCH (21:43)
[2022-02-19] MEDS: methylPREDNISolone SOD SUCC 125 MG/2 ML VIAL IV SCH (21:43)
[2022-02-19] MEDS: QUEtiapine 100 MG TABLET PO SCH (21:44)
[2022-02-19] MEDS: DONEPEZIL 10 MG TABLET PO SCH (21:44)
[2022-02-19] MEDS: METOPROLOL SUCCINATE 25 MG TAB.XL.24H PO SCH (21:44)
[2022-02-19] MEDS: MYCOPHENOLATE 250 MG CAPSULE PO SCH (21:44)
[2022-02-19] MEDS: APIXABAN 5 MG TABLET PO SCH (21:44)
[2022-02-20] MEDS: 0.9 % SODIUM CHLORIDE 1,000 ML IV SCH ×2 (03:24→16:20)
[2022-02-20] MEDS: ACETAMINOPHEN 1,000 MG/100 ML BAG IV SCH ×2 (03:24→08:55)
[2022-02-20] MEDS: PIPERACILLIN SODIUM/TAZOBACTAM 2.25 GM in DEXTROSE 5% IN WATER 50 ML IV SCH ×3 (05:32→23:15)
[2022-02-20 06:00] LABS: Basophils # (Auto) 0.01 K/mcL (0.00-0.30); Basophils % (Auto) 0.1 % (0.0-2.0); Eosinophils # (Auto) 0 K/mcL (0.00-0.70); Eosinophils % (Auto) 0 % (0.0-7.0); Hematocrit 32.7 % (34.1-44.9); Hemoglobin 9.7 g/dL (11.2-15.7); Lymphocytes # (Auto) 0.26 K/mcL (1.50-4.80); Lymphocytes % (Auto) 1.9 % (15.5-49.0); Mean Cell Volume 95.6 fL (80.0-100.0); Mean Corpuscular HGB Conc 29.7 g/dL (31.0-36.0); Mean Platelet Volume 10.3 fL (7.4-10.4); Monocytes # (Auto) 0.14 K/mcL (0.10-0.90); Platelet Count 270 K/mcL (140-440); RBC 3.42 M/mcL (3.59-5.38); Red Cell Distribution Width 15.9 % (11.5-14.5); WBC 13.5 K/mcL (4.5-11.0)
[2022-02-20 06:26] LABS: ALT/SGPT 16 U/L (<40); AST/SGOT 10 U/L (<32); Albumin 2.8 gm/dL (3.2-5.2); Alkaline Phosphatase 67 U/L (39-117); Bilirubin,Direct 0.2 mg/dL (<0.3); Bilirubin,Total 0.5 mg/dL (0.1-1.0); Blood Urea Nitrogen 53 mg/dL (8-23); Calcium 8.6 mg/dL (8.6-10.4); Carbon Dioxide 17 mmol/L (22-30); Chloride 105 mmol/L (96-108); Globulin 2.8 gm/dL (2.2-3.7); Glomerular Filtration Rate 18; Glucose 132 mg/dL (70-105); Lactate Dehydrogenase 132 U/L (135-225); Phosphorous 4.7 mg/dL (2.5-4.5); Triglycerides 79 mg/dL (<150); Uric Acid 7.8 mg/dL (2.5-8.0)
[2022-02-20] MEDS: methylPREDNISolone SOD SUCC 125 MG/2 ML VIAL IV SCH ×2 (08:32→21:00)
[2022-02-20] MEDS: PANTOPRAZOLE 40 MG VIAL IV SCH ×2 (08:32→16:31)
[2022-02-20] MEDS: MYCOPHENOLATE 250 MG CAPSULE PO SCH ×2 (08:33→21:00)
[2022-02-20] MEDS: CLOPIDOGREL 75 MG TABLET PO SCH (08:33)
[2022-02-20] MEDS: LEVOTHYROXINE 100 MCG TABLET PO SCH (08:33)
[2022-02-20] MEDS: APIXABAN 5 MG TABLET PO SCH ×2 (08:33→21:00)
[2022-02-20] MEDS: LOSARTAN 50 MG TABLET PO SCH (10:19)
[2022-02-20] MEDS: METOPROLOL SUCCINATE 25 MG TAB.XL.24H PO SCH ×2 (10:19→21:00)
[2022-02-20] MEDS: TACROLIMUS 1 MG CAPSULE PO SCH ×2 (10:19→21:05)
[2022-02-20] MEDS: TORSEMIDE 20 MG TABLET PO SCH (10:19)
--- NOTE | 2022-02-20 13:30 | General Surgery Progress Note ---
SUBJECTIVE Subjective Patient information: Note initiated : 02/20/22 at 1:25 pm Service Date, if different from initiated Date: [] Patient: Wendy Ellsworth 67 y/o F admitted on 02/19/22 for abdominal pain. Chief Complaint: [] Principal diagnosis: Diverticulitis; inflammatory adynamic ileus Interval history: Patient states that she feels better. She no longer has nausea. She has had flatus but no bowel movement. Is afebrile. She is tolerating antibiotics without. White blood count 13.5, hemoglobin 9.7, hematocrit 32.7. Constitutional Vitals: Vital Signs Temp Pulse Resp BP Pulse Ox 97.2 F 56 L 14 106/58 99 02/20/22 11:12 02/20/22 11:12 02/20/22 11:12 02/20/22 11:12 02/20/22 11:12 Period Temp Pulse Resp BP Sys/Reynoso Pulse Ox Last 24 Hr 97.2 F-98.6 F 56-79 14-20 106-155/43-88 90-99 Intake and Output 02/19/22 02/20/22 02/20/22 21:59 05:59 13:59 Intake Total 150 1250 150 Output Total 300 1 Balance -150 1250 149 Weight 137 lb 6.4 oz Intake & Output: Intake & Output 02/19/22 02/20/22 02/20/22 21:59 05:59 13:59 Intake Total 150 1250 150 Output Total 300 1 Balance -150 1250 149 Weight 137 lb 6.4 oz Intake: IV 150 1250 150 Sodium Chloride 0.9% 1,000 ml @ 1000 100 mls/hr IV .Q10H BK Rx#: [id number] Zosyn 2.25 gm In Dextrose 5% in 50 50 50 Water 50 ml @ 100 mls/hr IV Q8H BK Rx#:[id number] Oral 0 Output: # of times incontinent of urine 1 Urine/Stool Mix 300 Other: Urine Color Dark Yellow Urine Odor Strong # Voids 1 Eye Eye exam: Present EOMI and PERRL Pupils: Present normal accommodation ENT ENT exam: Present normal exam, normal external ear exam and normal oropharynx Neck Neck exam: Present full ROM and normal inspection; Absent tenderness Respiratory Respiratory exam: Present normal respiratory exam and CTAB Cardiovascular Cardiovascular exam: Present normal rate and rhythm, RRR, +S1 and +S2; Absent JVD GI/Abdominal GI/Abdominal exam: Present normal bowel sounds, soft, distended (Mild distention) and tenderness (Moderate tenderness in left lower quadrant) Extremities Exam Extremities exam: Present full ROM, normal capillary refill, normal inspection and neurovascular intact Neurological Exam Neurological exam: Present alert, normal gait, oriented X3 and reflexes normal Psychiatric Psychiatric exam: Present normal affect A/P Assessment and plan (1) Diverticulitis of sigmoid colon: Status: Acute (2) Atrial fibrillation: Status: Acute (3) Adynamic ileus: Status: Acute Plan Continue present therapy Restart Eliquis Time Spent With Patient Time: Total time spent is greater than 50% in coordination of care (as documented) at patient's floor/unit and/or counseling patient:
[2022-02-20] MEDS: QUEtiapine 100 MG TABLET PO SCH (21:00)
[2022-02-20] MEDS: DONEPEZIL 10 MG TABLET PO SCH (21:00)
[2022-02-21] MEDS: 0.9 % SODIUM CHLORIDE 1,000 ML IV SCH ×5 (00:20→17:03)
[2022-02-21] MEDS: PIPERACILLIN SODIUM/TAZOBACTAM 2.25 GM in DEXTROSE 5% IN WATER 50 ML IV SCH ×3 (05:53→20:28)
[2022-02-21 06:01] LABS: Basophils # (Auto) 0.01 K/mcL (0.00-0.30); Basophils % (Auto) 0.1 % (0.0-2.0); Eosinophils # (Auto) 0 K/mcL (0.00-0.70); Eosinophils % (Auto) 0 % (0.0-7.0); Lymphocytes # (Auto) 0.45 K/mcL (1.50-4.80); Lymphocytes % (Auto) 3.4 % (15.5-49.0); Mean Cell Volume 97.2 fL (80.0-100.0); Mean Platelet Volume 10.5 fL (7.4-10.4); Monocytes # (Auto) 0.15 K/mcL (0.10-0.90); Monocytes % (Auto) 1.1 % (1.0-12.0); Neutrophils % (Auto) 95.4 % (38.0-78.0); Platelet Count 242 K/mcL (140-440); RBC 3.19 M/mcL (3.59-5.38); Red Cell Distribution Width 15.5 % (11.5-14.5); WBC 13.4 K/mcL (4.5-11.0)
[2022-02-21 06:43] LABS: ALT/SGPT 12 U/L (<40); AST/SGOT 8 U/L (<32); Albumin 2.5 gm/dL (3.2-5.2); Albumin/Globulin Ratio 0.8 (1.0-2.3); Alkaline Phosphatase 49 U/L (39-117); Bilirubin,Direct < 0.2 mg/dL (0-0.3); Bilirubin,Total 0.3 mg/dL (0.1-1.0); Blood Urea Nitrogen 56 mg/dL (8-23); Calcium 7.1 mg/dL (8.6-10.4); Carbon Dioxide 15 mmol/L (22-30); Chloride 103 mmol/L (96-108); Glomerular Filtration Rate 16; Glucose 148 mg/dL (70-105); Lactate Dehydrogenase 142 U/L (135-225); Phosphorous 5.5 mg/dL (2.5-4.5); Triglycerides 79 mg/dL (<150); Uric Acid 7.4 mg/dL (2.5-8.0)
[2022-02-21] MEDS: PANTOPRAZOLE 40 MG VIAL IV SCH ×2 (07:51→16:52)
[2022-02-21] MEDS: MYCOPHENOLATE 250 MG CAPSULE PO SCH ×2 (07:51→20:29)
[2022-02-21] MEDS: LEVOTHYROXINE 100 MCG TABLET PO SCH (07:52)
[2022-02-21] MEDS: TORSEMIDE 20 MG TABLET PO SCH (08:55)
[2022-02-21] MEDS: APIXABAN 5 MG TABLET PO SCH ×2 (08:55→20:29)
[2022-02-21] MEDS: methylPREDNISolone SOD SUCC 125 MG/2 ML VIAL IV SCH ×2 (08:55→20:28)
[2022-02-21] MEDS: CLOPIDOGREL 75 MG TABLET PO SCH (08:56)
[2022-02-21] MEDS: TACROLIMUS 1 MG CAPSULE PO SCH ×2 (08:57→20:28)
[2022-02-21] MEDS: METOPROLOL SUCCINATE 25 MG TAB.XL.24H PO SCH ×2 (10:30→20:29)
[2022-02-21] MEDS: LOSARTAN 50 MG TABLET PO SCH (10:33)
--- NOTE | 2022-02-21 17:50 | General Surgery Progress Note ---
SUBJECTIVE Subjective Patient information: Note initiated : 02/21/22 at 5:47 pm Service Date, if different from initiated Date: [] Patient: Wendy Ellsworth 67 y/o F admitted on 02/19/22 for abdominal pain. Chief Complaint: [] Principal diagnosis: Diverticulitis; inflammatory adynamic ileus Interval history: Patient is feeling better. She feels less pain. She denies nausea. She has passed flatus and had a small bowel movement. She complains of hunger. Constitutional Vitals: Vital Signs Temp Pulse Resp BP Pulse Ox 98.2 F 78 24 H 145/80 95 02/21/22 16:00 02/21/22 16:00 02/21/22 16:00 02/21/22 16:00 02/21/22 16:00 Period Temp Pulse Resp BP Sys/Reynoso Pulse Ox Last 24 Hr 97.1 F-98.2 F 70-78 20-24 122-145/68-89 95-98 Intake and Output 02/21/22 02/21/22 02/21/22 05:59 13:59 21:59 Intake Total 1270 1050 1150 Output Total 3 Balance 1270 1050 1147 Intake & Output: Intake & Output 02/21/22 02/21/22 02/21/22 05:59 13:59 21:59 Intake Total 1270 1050 1150 Output Total 3 Balance 1270 1050 1147 Intake: IV 1050 1050 50 Sodium Chloride 0.9% 1,000 ml @ 1000 1000 100 mls/hr IV .Q10H BK Rx#: [id number] Zosyn 2.25 gm In Dextrose 5% in 50 50 50 Water 50 ml @ 100 mls/hr IV Q8H BK Rx#:[id number] Oral 220 1100 Output: # of times incontinent of urine 3 Other: Meal Dinner Percent of Meal Consumed Refused Feeding Ability Independent Eye Eye exam: Present EOMI, normal appearance and PERRL Pupils: Present PERRL ENT ENT exam: Present mucous membranes moist, normal exam and normal oropharynx Neck Neck exam: Present full ROM and normal inspection; Absent tenderness Respiratory Respiratory exam: Present normal respiratory exam and CTAB Cardiovascular Cardiovascular exam: Present normal rate and rhythm, RRR, +S1 and +S2; Absent gallop or JVD GI/Abdominal GI/Abdominal exam: Present normal bowel sounds, soft, distended (Mild distention) and tenderness (Mild tenderness in left lower quadrant and hypogastric) Extremities Exam Extremities exam: Present normal capillary refill, normal inspection and neurovascular intact; Absent pedal edema A/P Assessment and plan (1) Adynamic ileus: Status: Acute (2) Diverticulitis of sigmoid colon: Status: Acute Plan Advance to full liquid diet CT of abdomen pelvis with IV contrast on Monday Time Spent With Patient Time: Total time spent is greater than 50% in coordination of care (as documented) at patient's floor/unit and/or counseling patient:
[2022-02-21] MEDS: QUEtiapine 100 MG TABLET PO SCH (20:29)
[2022-02-21] MEDS: DONEPEZIL 10 MG TABLET PO SCH (20:29)
[2022-02-22] MEDS: 0.9 % SODIUM CHLORIDE 1,000 ML IV SCH (04:29)
[2022-02-22] MEDS: PIPERACILLIN SODIUM/TAZOBACTAM 2.25 GM in DEXTROSE 5% IN WATER 50 ML IV SCH ×3 (05:22→21:20)
[2022-02-22 06:14] LABS: Basophils # (Auto) 0 K/mcL (0.00-0.30); Basophils % (Auto) 0 % (0.0-2.0); Eosinophils # (Auto) 0 K/mcL (0.00-0.70); Eosinophils % (Auto) 0 % (0.0-7.0); Hematocrit 29.6 % (34.1-44.9); Hemoglobin 8.7 g/dL (11.2-15.7); Lymphocytes # (Auto) 0.43 K/mcL (1.50-4.80); Lymphocytes % (Auto) 4.1 % (15.5-49.0); Mean Cell Volume 97.4 fL (80.0-100.0); Mean Corpuscular HGB Conc 29.4 g/dL (31.0-36.0); Mean Platelet Volume 10.5 fL (7.4-10.4); Monocytes # (Auto) 0.22 K/mcL (0.10-0.90); Monocytes % (Auto) 2.1 % (1.0-12.0); Neutrophils % (Auto) 93.8 % (38.0-78.0); Platelet Count 226 K/mcL (140-440); RBC 3.04 M/mcL (3.59-5.38); Red Cell Distribution Width 15.9 % (11.5-14.5); WBC 10.4 K/mcL (4.5-11.0)
[2022-02-22 06:40] LABS: ALT/SGPT 11 U/L (<40); AST/SGOT 10 U/L (<32); Albumin 2.4 gm/dL (3.2-5.2); Albumin/Globulin Ratio 0.9 (1.0-2.3); Alkaline Phosphatase 44 U/L (39-117); Bilirubin,Direct < 0.2 mg/dL (0-0.3); Bilirubin,Total 0.2 mg/dL (0.1-1.0); Blood Urea Nitrogen 63 mg/dL (8-23); Calcium 6.4 mg/dL (8.6-10.4); Carbon Dioxide 13 mmol/L (22-30); Chloride 104 mmol/L (96-108); Globulin 2.7 gm/dL (2.2-3.7); Glomerular Filtration Rate 15; Glucose 147 mg/dL (70-105); Lactate Dehydrogenase 144 U/L (135-225); Phosphorous 5.7 mg/dL (2.5-4.5); Triglycerides 98 mg/dL (<150); Uric Acid 7.4 mg/dL (2.5-8.0)
[2022-02-22] MEDS: PANTOPRAZOLE 40 MG VIAL IV SCH ×2 (07:51→17:02)
[2022-02-22] MEDS: MYCOPHENOLATE 250 MG CAPSULE PO SCH ×2 (07:51→21:19)
[2022-02-22] MEDS: LEVOTHYROXINE 100 MCG TABLET PO SCH (07:52)
--- NOTE | 2022-02-22 08:11 | Nephrology Consult Note ---
HPI Data of Consult Patient: new to practice Consult date: 02/22/22 Requesting physician: Rosa Elena Garay Primary Care Provider: Turner Devine Consult Narrative Chief complaint: Abdominal pain Reason for consult: Acute kidney injury History of present illness: Wendy Ellsworth is a 67-year-old female with renal transplant, history of SLE, coronary artery disease s/p STEMI s/p stents in May 2021, history of pulmo nary embolism on anticoagulation, history of CVA admitted on 02/19/22 for ileus. Baseline serum creatinine: 2.1 to 2.8 in 2020, 1.9 to 2.2 (eGFR ~22) in 2021. Nephrology consultation was requested for acute kidney injury. cc:: CC: Rosa Elena Garay MD Constitutional Constitutional: Present fatigue and weakness Cardiovascular Cardiovascular: Absent chest pain or palpatations Respiratory Respiratory: Absent dyspnea Gastrointestinal Gastrointestinal: Present abdominal pain, change in bowel habits and loose stools Genitourinary Genitourinary: Absent dysuria or hematuria Integumentary Integumentary: Absent rash or wounds Neurological Neurological: Absent confusion or weakness Psychiatric Psychiatric: Absent anxiety or panic attacks Allergic/Immunologic Allergic/Immunologic: Absent tongue swelling or uticaria PFSH PFSH All Active Problems (Updated 02/22/22 @ 08:08 by Preston Mukherjee MD) Acute renal failure superimposed on stage 4 chronic kidney disease (Acute) Adynamic ileus (Acute) Vertigo (Acute) Gout flare (Acute) Pulmonary emboli (Acute) Stenosis of both vertebral arteries (Acute) Acute dyspnea (Acute) CHF (congestive heart failure) (Acute) CAD (coronary artery disease) (Acute) Atrial fibrillation (Acute) SBO (small bowel obstruction) (Acute) Diverticulitis of sigmoid colon (Acute) Nausea & vomiting (Acute) Matos's palsy (Acute) Diverticulitis (Acute) Constipation (Acute) Acute diverticulitis of intestine (Acute) Kidney transplant recipient (Acute) [id number] kidney injury (Acute) Cardiomegaly (Acute) Elevated brain natriuretic peptide (BNP) level (Acute) Fall (Acute) Hematoma of parietal scalp (Acute) Depression with suicidal ideation (Acute) Acute UTI (urinary tract infection) (Acute) Ureterolithiasis (Acute) Compression fracture of T11 vertebra (Acute) Suicide attempt (Acute) Laceration (Acute) Acute UTI (Acute) Anemia (Acute) CRF (chronic renal failure) (Acute) Acute alteration in mental status (Acute) ST elevation (STEMI) myocardial infarction (Acute) Right shoulder pain (Acute) Acute right-sided thoracic back pain (Acute) Hypertension (Acute) Urinary frequency (Acute) Other intermediate (current) drug therapy (Chronic) Secondary hyperparathyroidism of renal origin (Chronic) Hyperlipidemia (Chronic) Glaucoma (Chronic) Macular degeneration (Chronic) Diverticulitis (Chronic) Idiopathic aseptic necrosis of femur (Chronic) Osteoporosis (Chronic) Vitamin D deficiency (Chronic) Anemia (Chronic) Essential hypertension (Chronic) Chronic kidney disease (CKD) (Chronic) Medical History Anemia Borderline hyperglycemia Chronic kidney disease (CKD) Stage 3 Dislocation, finger, metacarpophalangeal joint Diverticulitis Essential hypertension Glaucoma Hyperlipidemia Idiopathic aseptic necrosis of femur Macular degeneration Nausea & vomiting 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 Patient with chronic kidney insufficiency Osteoporosis Other intermediate (current) drug therapy Phlebitis and thrombophlebitis Secondary hyperparathyroidism of renal origin Urinary tract infection Vitamin D deficiency Surgical History 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 Family history of AICD (automatic internal cardiac defibrillator) (~1996) History of hand surgery (~08/2015) History of hysterectomy (~1978) History of intraocular lens implant February & March 1989 History of kidney transplant (07/27/00) History of knee surgery (~04/2009) History of orthopedic surgery (04/28/96) mohamud placement in right leg 04/28/96 @ [place]; muscle relocation and skin grafts of right leg 04/29/96 @ [place] History of parathyroidectomy (11/27/95) History of surgery fistula placement February 1993 @ [place]; fistula declot; Graft placement upper right arm 10/1999 @ [place] Kidney replaced by transplant Status post biopsy of kidney (~03/2007) Family History Father Hypertension CVA (cerebral vascular accident) Colon polyps needed surgical resection/partial colectomy Prostate cancer Hyperlipidemia Social History alcohol intake frequency: does not drink substance use type: does not use MEDS/ALLERGIES Home Medications and Allergies Home Medications Medication Instructions Recorded Confirmed Type omeprazole 20 mg capsule,delayed 20 mg PO DAILY 08/11/15 02/19/22 History release tacrolimus 1 mg capsule, 3 mg PO BID cap 02/05/16 02/19/22 History immediate-release (Prograf) prednisone 5 mg tablet 5 mg PO QDAY 06/07/17 02/19/22 History donepezil 10 mg tablet 10 mg PO HS 04/22/19 02/19/22 History mycophenolate mofetil 250 mg 750 mg PO BID 05/15/21 02/19/22 History capsule torsemide 20 mg PO DAILY 05/15/21 02/19/22 History cholecalciferol (vitamin D3) 125 125 mcg PO QDAY 01/22/22 02/19/22 History mcg (5,000 unit) capsule clopidogrel 75 mg tablet 1 tab PO QDAY 01/22/22 02/19/22 History denosumab 60 mg/mL subcutaneous 60 mg SUBCUT Q3M 01/22/22 02/20/22 History syringe (Prolia) levothyroxine 100 mcg tablet 1 tab PO QDAY 01/22/22 02/19/22 History metoprolol succinate 25 mg 25 mg PO BID 01/22/22 02/19/22 History tablet,extended release 24 hr quetiapine 50 mg tablet 100 mg PO HS 01/22/22 02/19/22 History magnesium oxide 480 mg PO QDAY 01/23/22 02/19/22 History apixaban 5 mg tablet (Eliquis) 5 mg PO BID #60 tab 02/16/22 02/19/22 Rx Centrum Silver Women 1 tab PO DAILY 02/19/22 02/19/22 History allopurinol 100 mg tablet 1 tab PO QDAY 02/19/22 02/19/22 History atorvastatin 80 mg tablet 1 tab PO QDAY 02/19/22 02/19/22 History losartan 50 mg tablet 1 tab PO QDAY 02/19/22 02/19/22 History potassium 1 tab PO DAILY 02/19/22 02/19/22 History Allergies Allergy/AdvReac Type Severity Reaction Status Date / Time ciprofloxacin AdvReac Intermediate Cramping Verified 02/19/22 09:15 of the Muscles levofloxacin AdvReac Intermediate Other Verified 02/19/22 09:15 Quinolones AdvReac Intermediate Muscle Pain Verified 02/19/22 09:15 Cephalosporins AdvReac Mild Rash Verified 02/19/22 09:15 cilastatin [From Primaxin] AdvReac Mild Rash Verified 02/19/22 09:15 droperidol [From Inapsine] AdvReac Mild Rash Verified 02/19/22 09:15 imipenem [From Primaxin] AdvReac Mild Rash Verified 02/19/22 09:15 Labetalol [From Trandate] AdvReac Mild Rash Verified 02/19/22 09:15 meperidine [From Demerol] AdvReac Mild Rash Verified 02/19/22 09:15 metronidazole [From Flagyl] AdvReac Mild Rash Verified 02/19/22 09:15 pentazocine [From Talwin] AdvReac Mild Rash Verified 02/19/22 09:15 phenobarbital AdvReac Mild Rash Verified 02/19/22 09:15 propoxyphene AdvReac Mild Rash Verified 02/19/22 09:15 [From Darvocet-N] tobramycin AdvReac Mild Rash Verified 02/19/22 09:15 Physical Examination Vital Signs Vital signs: Temp Pulse Resp BP Pulse Ox 96.5 F L 86 14 142/94 94 02/22/22 07:55 02/22/22 07:55 02/22/22 07:55 02/22/22 07:55 02/22/22 07:55 General Appearance General appearance: well-developed, well-nourished and appears started age EENT EENT: mucous membranes moist Respiratory Respiratory: clear Cardiovascular Cardiology: regular rate and regular rhythm Gastrointestinal Gastrointestinal: distended Integumentary Integumentary: no rash Neurologic Neurologic: no focal deficit and alert and oriented x3 Psychiatric Psychiatric: mood/affect appropriate and cooperative Results Lab Results Result Diagrams: 02/22/22 05:23 02/22/22 05:23 Lab results: Most recent lab results Calcium 6.4 mg/dL (8.6-10.4) L 02/22/22 05:23 Phosphorus 5.7 mg/dL (2.5-4.5) H 02/22/22 05:23 Magnesium 1.9 mg/dL (1.6-2.5) 02/22/22 05:23 A/P Assessment and plan (1) Acute renal failure superimposed on stage 4 chronic kidney disease: Assessment and plan: Wendy Ellsworth is a 67-year-old female with renal transplant, history of SLE, coronary artery disease s/p STEMI s/p stents in May 2021, history of pulmonar y embolism on anticoagulation, history of CVA admitted on 02/19/22 for ileus. Acute kidney injury on chronic kidney disease stage 4 of renal transplant with metabolic acidosis and hyponatremia, present on arrival. There is no recent history of IV contrast administration or NSAID use. Intravascular volume depletion unlikely. Tacrolimus toxicity is considered. It interacts with antibiotics and tacrolimus level needs to be monitored. Renal transplant at [facility] in 1999, on prednisone, mycophenolate and tacrolimus, followed by Dr. Fortune. Work up: Urinalysis on 01/22/22: Yellow, Turbid, pH 5.0, SG 1.010, protein 100, blood 0.03, leukocyte esterase 500. CT Abdomen and Pelvis without contrast on 02/19/22: Severe bilateral renal atrophy compatible with end-stage renal failure. A few small simple cysts in both kidneys are stable. Renal transplant in the right iliac fossa is normal size. A 17 mm high attenuation lesion posterior cortex of the transplant is unchanged and presumably insignificant likely a small adenoma. Progress: Serum creatinine increased from 2.9 to 3.1 in the past 24 hours. Baseline serum creatinine: 2. to 2.8 in 2020, 1.9 to 2.2 (eGFR ~22) in 2021. Urine output: Not reported in the past 24 hours. Fluid overload. Metabolic acidosis. Hyponatremia. Fluid overload. I/O: +6.5L since admit. No uremic symptoms. Recommendations/Plan: No urgent acute hemodialysis need. Tacrolimus level (12 hour through) ordered. Tacrolimus level needs to be monitored during acute illness and with antibiotics. This may require transfer to a transplant center ([facility]) where tacrolimus level is available the same day. Hold ACEI/ARB. Sodium Bicarbonate 1,300 mg PO TID for metabolic acidosis and hyponatremia. Avoid NSAIDs, nephrotoxic medications and IV contrast. Monitor BMP and urine output. Status: Acute (2) Kidney transplant recipient: Status: Acute Time Spent With Patient Time: Total time spent is greater than 50% in coordination of care (as documented) at patient's floor/unit and/or counseling patient:
--- NOTE | 2022-02-22 08:54 | XRay Report ---
HISTORY: Fluid overload FINDINGS: The heart is moderately enlarged but has diminished in size since 02/16/22. There is a pacemaker in the right ventricular apex. The pulmonary vascular congestion seen on the prior exam has resolved. Lungs are now clear. There is no pleural effusion or adenopathy. Chronic degenerative changes are again noted in the left shoulder. There are surgical clips at the thoracic inlet in the region of the thyroid. IMPRESSION: Improved cardiomegaly and resolved congestive heart failure Interpreted and Authenticated by: José Garcia 02/22/22
[2022-02-22] MEDS: METOPROLOL SUCCINATE 25 MG TAB.XL.24H PO SCH ×2 (09:58→21:19)
[2022-02-22] MEDS: TORSEMIDE 20 MG TABLET PO SCH (09:59)
[2022-02-22] MEDS: SODIUM BICARBONATE 650 MG TABLET PO SCH ×3 (09:59→21:19)
[2022-02-22] MEDS: TACROLIMUS 1 MG CAPSULE PO SCH ×2 (09:59→21:20)
[2022-02-22] MEDS: methylPREDNISolone SOD SUCC 125 MG/2 ML VIAL IV SCH ×2 (09:59→21:20)
[2022-02-22] MEDS: CLOPIDOGREL 75 MG TABLET PO SCH (11:37)
[2022-02-22] MEDS: APIXABAN 5 MG TABLET PO SCH ×2 (11:37→21:19)
--- NOTE | 2022-02-22 14:37 | General Surgery Progress Note ---
SUBJECTIVE Subjective Patient information: Note initiated : 02/22/22 at 2:30 pm Service Date, if different from initiated Date: [] Patient: Wendy Ellsworth 67 y/o F admitted on 02/21/22 for abdominal pain. Chief Complaint: [] Principal diagnosis: Diverticulitis; inflammatory adynamic ileus Interval history: Patient is clinically improved. She does not have nausea. She has been afebrile. She has had flatus and small bowel movement. She has become more dyspneic and has volume overload. BNP is 32,881. She was seen by nephrology earlier today and he has made some suggestions. Her saline has been locked. White blood count 10.4, hemoglobin 8.7, hematocrit 29.6, BUN 63, creatinine 3.1. Constitutional Vitals: Vital Signs Temp Pulse Resp BP Pulse Ox 96.5 F L 72 14 141/98 95 02/22/22 12:00 02/22/22 12:00 02/22/22 12:00 02/22/22 12:00 02/22/22 12:00 Period Temp Pulse Resp BP Sys/Reynoso Pulse Ox Last 24 Hr 96.5 F-98.2 F 60-91 14-24 125-145/80-103 93-98 Intake and Output 02/22/22 02/22/22 02/22/22 05:59 13:59 21:59 Intake Total 350 600 Balance 350 600 Weight 154 lb 8 oz Patient Weight 02/23/22 05:59 Weight 154 lb 8 oz Intake & Output: Intake & Output 02/22/22 02/22/22 02/22/22 05:59 13:59 21:59 Intake Total 350 600 Balance 350 600 Weight 154 lb 8 oz Intake: IV 0 400 Sodium Chloride 0.9% 1,000 ml @ 0 350 100 mls/hr IV .Q10H [facility] Rx#: [id number] Zosyn 2.25 gm In Dextrose 5% in 50 Water 50 ml @ 100 mls/hr IV Q8H [facility] Rx#:[id number] Oral 350 200 Other: Stool Size Small Stool Color Brown Stool Consistency Liquid Loose # Voids 1 # Bowel Movements 1 # of times incontinent of 1 Bowels Eye Eye exam: Present EOMI, normal appearance and PERRL ENT ENT exam: Present mucous membranes moist and normal oropharynx Neck Neck exam: Present full ROM; Absent lymphadenopathy Respiratory Respiratory exam: Present normal respiratory exam and CTAB; Absent rales or wheezes Cardiovascular Cardiovascular exam: Present normal rate and rhythm, RRR, +S1 and +S2; Absent JVD GI/Abdominal GI/Abdominal exam: Present normal bowel sounds, soft and tenderness (Minimal tenderness in left lower quadrant); Absent distended Extremities Exam Additional comments: Chronic operative changes of lower extremities but no increased pedal edema Neurological Exam Neurological exam: Present oriented X3 and reflexes normal; Absent motor sensory deficit Psychiatric Psychiatric exam: Present normal affect and normal mood A/P Assessment and plan (1) Acute renal failure superimposed on stage 4 chronic kidney disease: Status: Acute (2) Diverticulitis of sigmoid colon: Status: Acute (3) Adynamic ileus: Status: Acute (4) CHF (congestive heart failure): Status: Acute (5) Atrial fibrillation: Status: Acute Plan Follow-up CT of the abdomen and pelvis in the morning Advance to GI soft diet Time Spent With Patient Time: Total time spent is greater than 50% in coordination of care (as documented) at patient's floor/unit and/or counseling patient:
[2022-02-22] MEDS: QUEtiapine 100 MG TABLET PO SCH (21:19)
[2022-02-22] MEDS: DONEPEZIL 10 MG TABLET PO SCH (21:19)
[2022-02-23] MEDS: PIPERACILLIN SODIUM/TAZOBACTAM 2.25 GM in DEXTROSE 5% IN WATER 50 ML IV SCH ×2 (05:32→14:34)
[2022-02-23 06:35] LABS: Basophils # (Auto) 0.01 K/mcL (0.00-0.30); Basophils % (Auto) 0.1 % (0.0-2.0); Eosinophils # (Auto) 0 K/mcL (0.00-0.70); Eosinophils % (Auto) 0 % (0.0-7.0); Hematocrit 30.4 % (34.1-44.9); Hemoglobin 8.8 g/dL (11.2-15.7); Lymphocytes # (Auto) 0.41 K/mcL (1.50-4.80); Lymphocytes % (Auto) 5.8 % (15.5-49.0); Mean Cell Volume 96.5 fL (80.0-100.0); Mean Corpuscular HGB Conc 28.9 g/dL (31.0-36.0); Mean Platelet Volume 10.5 fL (7.4-10.4); Monocytes # (Auto) 0.17 K/mcL (0.10-0.90); Monocytes % (Auto) 2.4 % (1.0-12.0); Neutrophils % (Auto) 91.7 % (38.0-78.0); Platelet Count 228 K/mcL (140-440); RBC 3.15 M/mcL (3.59-5.38); Red Cell Distribution Width 15.7 % (11.5-14.5); WBC 7.1 K/mcL (4.5-11.0)
[2022-02-23 07:04] LABS: ALT/SGPT 13 U/L (<40); AST/SGOT 9 U/L (<32); Albumin 2.7 gm/dL (3.2-5.2); Alkaline Phosphatase 47 U/L (39-117); Bilirubin,Direct < 0.2 mg/dL (0-0.3); Bilirubin,Total 0.2 mg/dL (0.1-1.0); Blood Urea Nitrogen 67 mg/dL (8-23); Calcium 6.3 mg/dL (8.6-10.4); Carbon Dioxide 15 mmol/L (22-30); Chloride 107 mmol/L (96-108); Globulin 2.6 gm/dL (2.2-3.7); Glomerular Filtration Rate 14; Glucose 175 mg/dL (70-105); Lactate Dehydrogenase 184 U/L (135-225); Phosphorous 5.2 mg/dL (2.5-4.5); Triglycerides 113 mg/dL (<150); Uric Acid 8.2 mg/dL (2.5-8.0)
--- NOTE | 2022-02-23 07:35 | Nephrology Progress Note ---
SUBJECTIVE Subjective Patient information: Note initiated : 02/23/22 at 7:32 am Patient: Wendy Ellsworth 67 y/o F admitted on 02/21/22 for abdominal pain. Chief Complaint: Abdominal pain Principal diagnosis: Diverticulitis; inflammatory adynamic ileus Pertinent ROS: Weakness Tolerates full liquid diet No urinary symptoms Constitutional Vitals: Vital Signs Temp Pulse Resp BP Pulse Ox 97.2 F 68 14 154/97 96 02/23/22 06:34 02/23/22 06:34 02/23/22 06:34 02/23/22 06:34 02/23/22 06:34 Period Temp Pulse Resp BP Sys/Reynoso Pulse Ox Last 24 Hr 96.5 F-98.1 F 68-86 14-20 119-154/71-98 94-97 Intake and Output 02/22/22 02/23/22 02/23/22 21:59 05:59 13:59 Intake Total 850 350 Output Total 4 Balance 846 350 Weight 145 lb 11.2 oz Intake & Output: Intake & Output 02/22/22 02/23/22 02/23/22 21:59 05:59 13:59 Intake Total 850 350 Output Total 4 Balance 846 350 Weight 145 lb 11.2 oz Intake: IV 50 50 Zosyn 2.25 gm In Dextrose 5% in 50 50 Water 50 ml @ 100 mls/hr IV Q8H [facility] Rx#:[id number] Oral 800 300 Output: # of times incontinent of urine 4 Other: Meal Dinner Percent of Meal Consumed 50% Stool Size Small Stool Color Brown Stool Consistency Liquid # Bowel Movements 1 General appearance: cooperative and no acute distress Head Head exam: Present normal inspection Eye Eye exam: Present normal appearance ENT ENT exam: Present mucous membranes moist Respiratory Respiratory exam: Absent respiratory distress Cardiovascular Cardiovascular exam: Present normal rate and rhythm GI/Abdominal GI/Abdominal exam: Present distended and tenderness Extremities Exam Extremities exam: Absent joint swelling or pedal edema Neurological Exam Neurological exam: Present alert and oriented X3 Psychiatric Psychiatric exam: Present normal affect and normal mood Skin Skin exam: Present warm; Absent rash A/P Assessment and plan (1) Acute renal failure superimposed on stage 4 chronic kidney disease: Assessment and plan: Wendy Ellsworth is a 67-year-old female with renal transplant, history of SLE, coronary artery disease s/p STEMI s/p stents in May 2021, history of pulmonary embolism on anticoagulation, history of CVA admitted on 02/19/22 for ileus. Acute kidney injury on chronic kidney disease stage 4 of renal transplant with metabolic acidosis and hyponatremia, present on arrival. There is no recent history of IV contrast administration or NSAID use. Intravascular volume depletion unlikely. Tacrolimus toxicity is considered. It interacts with antibiotics and tacrolimus level needs to be monitored. Renal transplant at [facility] in 1999, on prednisone, mycophenolate and tacrolimus, followed by Dr. Fortune. Work up: Urinalysis on 01/22/22: Yellow, Turbid, pH 5.0, SG 1.010, protein 100, blood 0.03, leukocyte esterase 500. CT Abdomen and Pelvis without contrast on 02/19/22: Severe bilateral renal atrophy compatible with end-stage renal failure. A few small simple cysts in both kidneys are stable. Renal transplant in the right iliac fossa is normal size. A 17 mm high attenuation lesion posterior cortex of the transplant is unchanged and presumably insignificant likely a small adenoma. Progress: Serum creatinine increased from 3.1 to 3.3 in the past 24 hours. Baseline serum creatinine: 2.0 to 2.8 in 2020, 1.9 to 2.2 (eGFR ~22) in 2021. Urine output: Not reported in the past 24 hours. Fluid overload. Hyponatremia and metabolic acidosis, improved with Sodium Bicarbonate 1,300 mg PO TID. Fluid overload. I/O: +8.3L since admit. No uremic symptoms. Recommendations/Plan: No urgent acute hemodialysis need. Tacrolimus level (12 hour through) ordered on 02/22/22. Tacrolimus level needs to be monitored during acute illness and with antibiotics. This may require transfer to a transplant center ([facility]) where tacrolimus level is available the same day. Hold ACEI/ARB. Continue Sodium Bicarbonate 1,300 mg PO TID for metabolic acidosis and hyponatremia. Avoid NSAIDs, nephrotoxic medications and IV contrast. Monitor BMP and urine output. Status: Acute (2) Kidney transplant recipient: Status: Acute Time Spent With Patient Time: Total time spent is greater than 50% in coordination of care (as documented) at patient's floor/unit and/or counseling patient:
[2022-02-23] MEDS: PANTOPRAZOLE 40 MG VIAL IV SCH (07:37)
[2022-02-23] MEDS: MYCOPHENOLATE 250 MG CAPSULE PO SCH (07:38)
[2022-02-23] MEDS: LEVOTHYROXINE 100 MCG TABLET PO SCH (07:38)
[2022-02-23] MEDS: SODIUM BICARBONATE 650 MG TABLET PO SCH ×2 (09:21→14:31)
[2022-02-23] MEDS: methylPREDNISolone SOD SUCC 125 MG/2 ML VIAL IV SCH (09:21)
[2022-02-23] MEDS: TORSEMIDE 20 MG TABLET PO SCH (09:21)
[2022-02-23] MEDS: CLOPIDOGREL 75 MG TABLET PO SCH (09:22)
[2022-02-23] MEDS: APIXABAN 5 MG TABLET PO SCH (09:22)
[2022-02-23] MEDS: METOPROLOL SUCCINATE 25 MG TAB.XL.24H PO SCH (09:22)
[2022-02-23] MEDS: TACROLIMUS 1 MG CAPSULE PO SCH (10:26)
--- NOTE | 2022-02-23 15:07 | Discharge Summary ---
Discharge Provider Provider Patient information: Note initiated : 02/23/22 at 3:06 pm Service Date, if different from initiated Date: [] Patient: Wendy Ellsworth 67 y/o F admitted on 02/21/22 for abdominal pain. Chief Complaint: [] Date of admission: 02/21/22 11:00 Discharge date: 02/23/22 Primary care physician: Turner Devine Consults: 02/22/22 07:44 Consult to Physician [CONS] Routine Comment: Consulting Provider: Preston Mukherjee Reason For Exam: Physician to Consult COURSE Time Spent with Patient Time attestation: Total time spent providing and/or coordinating discharge services: Physical Examination Vital Signs Vital signs: Temp Pulse Resp BP Pulse Ox 97.8 F 69 18 144/90 98 02/23/22 12:00 02/23/22 12:00 02/23/22 12:00 02/23/22 12:00 02/23/22 12:00 Discharge Plan Patient/Caregiver Discharge Instructions Prescriptions: No Action tacrolimus [Prograf] 1 mg capsule 3 mg PO BID 0RF prednisone 5 mg tablet 5 mg PO QDAY 0RF omeprazole 20 MG capsule 20 mg PO DAILY 0RF Rx Instructions: 30 mins. before morning meal donepezil 10 MG tablet 10 mg PO HS 0RF torsemide 20 mg PO DAILY 0RF mycophenolate mofetil 250 mg Capsule 750 mg PO BID 0RF clopidogrel 75 mg tablet 1 tab PO QDAY 0RF levothyroxine 100 mcg tablet 1 tab PO QDAY 0RF metoprolol succinate 25 mg tablet extended release 24 hr 25 mg PO BID 0RF Rx Instructions: 3 tabs BID cholecalciferol (vitamin D3) 125 mcg (5,000 unit) Capsule 125 mcg PO QDAY 0RF quetiapine 50 mg tablet 100 mg PO HS 0RF Prolia 60 mg/mL syringe 60 mg subcut Q3M 0RF Label Comments: Recently had this magnesium oxide 400 mg magnesium Tablet 480 mg PO QDAY 0RF Eliquis 5 mg tablet 5 mg PO BID Qty: 60 0RF losartan 50 mg tablet 1 tab PO QDAY 0RF atorvastatin 80 mg tablet 1 tab PO QDAY 0RF allopurinol 100 mg tablet 1 tab PO QDAY 0RF Centrum Silver Women 1 tab PO DAILY 0RF potassium 1 tab PO DAILY 0RF Follow Up Plan Follow up with: Turner Devine MD [Primary Care Provider] - Prognosis: Fair Pending Pending Pending: Resuscitation Status Resuscitate (Full Code) Diet GI Soft/Transitional Start MonFeb 23 1436 Apixaban (Apixaban 5 Mg Tablet) 5 mg PO BID [facility] Admin: 02/23/22 09:22 Dose: 5 mg Documented by: Cosigned by: Admin: 02/22/22 21:19 Dose: 5 mg Documented by: Admin: 02/22/22 11:37 Dose: 5 mg Documented by: Admin: 02/21/22 20:29 Dose: 5 mg Documented by: Admin: 02/21/22 08:55 Dose: 5 mg Documented by: Admin: 02/20/22 21:00 Dose: 5 mg Documented by: Admin: 02/20/22 08:33 Dose: 5 mg Documented by: Admin: 02/19/22 21:44 Dose: 5 mg Documented by: JASSI Clopidogrel Bisulfate (Clopidogrel 75 Mg Tablet) 75 mg PO QDAY [facility] Admin: 02/23/22 09:22 Dose: 75 mg Documented by: Cosigned by: Admin: 02/22/22 11:37 Dose: 75 mg Documented by: Admin: 02/21/22 08:56 Dose: 75 mg Documented by: Admin: 02/20/22 08:33 Dose: 75 mg Documented by: [email or web address] Donepezil HCl (Donepezil 10 Mg Tablet) 10 mg PO HS [facility] Admin: 02/22/22 21:19 Dose: 10 mg Documented by: Admin: 02/21/22 20:29 Dose: 10 mg Documented by: Admin: 02/20/22 21:00 Dose: 10 mg Documented by: Admin: 02/19/22 21:44 Dose: 10 mg Documented by: JASSI Piperacillin Sod/Tazobactam (Sod 2.25 gm/ Dextrose) 50 mls @ 100 mls/hr IV Q8H [facility] Admin: 02/23/22 14:34 Dose: 100 mls/hr Documented by: Cosigned by: Infusion: 02/23/22 06:05 Dose: 0 mls/hr Documented by: Admin: 02/23/22 05:32 Dose: 100 mls/hr Documented by: Infusion: 02/22/22 22:01 Dose: 0 mls/hr Documented by: Admin: 02/22/22 21:20 Dose: 100 mls/hr Documented by: Infusion: 02/22/22 14:15 Dose: 0 mls/hr Documented by: Admin: 02/22/22 13:43 Dose: 100 mls/hr Documented by: Infusion: 02/22/22 06:33 Dose: 0 mls/hr Documented by: Admin: 02/22/22 05:22 Dose: 100 mls/hr Documented by: Infusion: 02/21/22 21:00 Dose: 0 mls/hr Documented by: Admin: 02/21/22 20:28 Dose: 100 mls/hr Documented by: Infusion: 02/21/22 14:42 Dose: 0 mls/hr Documented by: Admin: 02/21/22 14:08 Dose: 100 mls/hr Documented by: Infusion: 02/21/22 08:12 Dose: 0 mls/hr Documented by: Admin: 02/21/22 05:53 Dose: 100 mls/hr Documented by: Infusion: 02/21/22 00:20 Dose: 0 mls/hr Documented by: Admin: 02/20/22 23:15 Dose: 100 mls/hr Documented by: Infusion: 02/20/22 16:00 Dose: 0 mls/hr Documented by: Admin: 02/20/22 15:24 Dose: 100 mls/hr Documented by: Infusion: 02/20/22 10:23 Dose: 0 mls/hr Documented by: Admin: 02/20/22 05:32 Dose: 100 mls/hr Documented by: Infusion: 02/19/22 22:38 Dose: 0 mls/hr Documented by: Admin: 02/19/22 21:43 Dose: 100 mls/hr Documented by: Infusion: 02/19/22 17:26 Dose: 0 mls/hr Documented by: [email or web address] Admin: 02/19/22 16:42 Dose: 100 mls/hr Documented by: [email or web address] Levothyroxine Sodium (Levothyroxine 100 Mcg Tablet) 100 mcg PO ACB [facility] Admin: 02/23/22 07:38 Dose: 100 mcg Documented by: Cosigned by: Admin: 02/22/22 07:52 Dose: 100 mcg Documented by: Admin: 02/21/22 07:52 Dose: 100 mcg Documented by: Admin: 02/20/22 08:33 Dose: 100 mcg Documented by: [email or web address] Methylprednisolone Sodium Succinate (Methylprednisolone Sod Succ 125 Mg/2 Ml Vial) 62.5 mg IV Q12 [facility] Admin: 02/23/22 09:21 Dose: 62.5 mg Documented by: Cosigned by: Admin: 02/22/22 21:20 Dose: 62.5 mg Documented by: Admin: 02/22/22 09:59 Dose: 62.5 mg Documented by: Admin: 02/21/22 20:28 Dose: 62.5 mg Documented by: Admin: 02/21/22 08:55 Dose: 62.5 mg Documented by: Admin: 02/20/22 21:00 Dose: 62.5 mg Documented by: Admin: 02/20/22 08:32 Dose: 62.5 mg Documented by: Admin: 02/19/22 21:43 Dose: 62.5 mg Documented by: JASSI Metoprolol Succinate (Metoprolol Succinate 25 Mg Tab.Xl.24h) 25 mg PO BID [facility] Admin: 02/23/22 09:22 Dose: 25 mg Documented by: Cosigned by: Admin: 02/22/22 21:19 Dose: 25 mg Documented by: Admin: 02/22/22 09:58 Dose: 25 mg Documented by: Admin: 02/21/22 20:29 Dose: 25 mg Documented by: Admin: 02/21/22 10:30 Dose: 25 mg Documented by: Admin: 02/20/22 21:00 Dose: 25 mg Documented by: Admin: 02/20/22 10:19 Dose: 25 mg Documented by: Admin: 02/19/22 21:44 Dose: 25 mg Documented by: JASSI Mycophenolate Mofetil (Mycophenolate 250 Mg Capsule) 750 mg PO BID [facility] Admin: 02/23/22 07:38 Dose: 750 mg Documented by: Cosigned by: Admin: 02/22/22 21:19 Dose: 750 mg Documented by: Admin: 02/22/22 07:51 Dose: 750 mg Documented by: Admin: 02/21/22 20:29 Dose: 750 mg Documented by: Admin: 02/21/22 07:51 Dose: 750 mg Documented by: Admin: 02/20/22 21:00 Dose: 750 mg Documented by: Admin: 02/20/22 08:33 Dose: 750 mg Documented by: Admin: 02/19/22 21:44 Dose: 750 mg Documented by: JASSI Pantoprazole [facility] ([facility] 40 Mg [facility]) [facility]: 02/23/22 07:37 Dose: 40 mg Documented by: Cosigned by: Admin: 02/22/22 17:02 Dose: 40 mg Documented by: Admin: 02/22/22 07:51 Dose: 40 mg Documented by: Admin: 02/21/22 16:52 Dose: 40 mg Documented by: Admin: 02/21/22 07:51 Dose: 40 mg Documented by: Admin: 02/20/22 16:31 Dose: 40 mg Documented by: [email or web address] Admin: 02/20/22 08:32 Dose: 40 mg Documented by: Admin: 02/19/22 17:55 Dose: 40 mg Documented by: [email or web address] Quetiapine Fumarate (Quetiapine 100 Mg Tablet) 100 mg PO [facility] Admin: 02/22/22 21:19 Dose: 100 mg Documented by: Admin: 02/21/22 20:29 Dose: 100 mg Documented by: Admin: 02/20/22 21:00 Dose: 100 mg Documented by: Admin: 02/19/22 21:44 Dose: 100 mg Documented by: JASSI Sodium Bicarbonate (Sodium Bicarbonate 650 Mg Tablet) 1,300 mg PO TID [facility] Admin: 02/23/22 14:31 Dose: 1,300 mg Documented by: Cosigned by: Admin: 02/23/22 09:21 Dose: 1,300 mg Documented by: Cosigned by: Admin: 02/22/22 21:19 Dose: 1,300 mg Documented by: Admin: 02/22/22 13:43 Dose: 1,300 mg Documented by: [email or web address] Admin: 02/22/22 09:59 Dose: 1,300 mg Documented by: DOMINIC Tacrolimus (Tacrolimus 1 Mg Capsule) 3 mg PO BID [facility] Admin: 02/23/22 10:26 Dose: 3 mg Documented by: Cosigned by: Admin: 02/22/22 21:20 Dose: 3 mg Documented by: Admin: 02/22/22 09:59 Dose: 3 mg Documented by: Admin: 02/21/22 20:28 Dose: 3 mg Documented by: Admin: 02/21/22 08:57 Dose: 3 mg Documented by: Admin: 02/20/22 21:05 Dose: 3 mg Documented by: Admin: 02/20/22 10:19 Dose: 3 mg Documented by: [email or web address] Admin: 02/19/22 21:43 Dose: 3 mg Documented by: JASSI Torsemide (Torsemide 20 Mg Tablet) 20 mg PO DAILY [facility] Admin: 02/23/22 09:21 Dose: 20 mg Documented by: Cosigned by: Admin: 02/22/22 09:59 Dose: 20 mg Documented by: Admin: 02/21/22 08:55 Dose: 20 mg Documented by: Admin: 02/20/22 10:19 Dose: 20 mg Documented by: [email or web address] Shift Summary 02/23/22 04:46 Shift Summary by Karla Henderson Primary Diagnosis: SBO, Diverticulitis Registration Status: IN Day of Hospitalization: Admitted 02/19/22 Date of Surgery (if applicable): NA. Pertinent Medical Dx/Issue(s): CHF, CAD, AFIB, recent pulmonary embolisms, [place] palsy, kidney transplant, depression with suicidal ideation, HLD, glaucoma. -nephrology consulted today for fluid volume overload: Per note: "Acute kidney injury on chronic kidney disease stage 4 of renal transplant with metabolic acidosis and hyponatremia, present on arrival. There is no recent history of IV contrast administration or NSAID use. Intravascular volume depletion unlikely. Tacrolimus toxicity is considered. It interacts with antibiotics and tacrolimus level needs to be monitored. No urgent acute hemodialysis need. Tacrolimus level (12 hour through) ordered. Tacrolimus level needs to be monitored during acute illness and with antibiotics. This may require transfer to a transplant center ([facility]) where tacrolimus level is available the same day." Interventions (wounds, diuresis, etc): IS, elevating feet in bed, ambulating TID, TQ2, CADY pump. Vital Signs with Trends: VSS on RA Neuro/Mental Status: A&Ox4, BA on for forgetfulness. Meds (abo, pain, BP, etc): Sodium bicarb started for metabolic acidosis and hyponatremia, no PRNs given. Zosyn Lines/Tubes: PIV to AUGUSTIN MATA with IV abx Lab/Rad results: Plan for am CT Date of last BM: 02/22/22. Elimination (remove Kaufman within 24h if appropriate): Incontinent with briefs on, pt will not tell you if wet, and up to commode. Recommendations/questions for MD: Activity: 1 assist with [place]w GB. Showered this shift. Expected date of discharge: TBD, pt here last month for bilat PE's and in the ER multiple times. Discharge Plan (needs, disposition, etc): PT will DC home with when ready. Initialized on 02/23/22 04:46 - END OF NOTE
--- NOTE | 2022-02-23 15:19 | Discharge Summary ---
Discharge Provider Provider Patient information: Note initiated : 02/23/22 at 3:11 pm Service Date, if different from initiated Date: [] Patient: Wendy Ellsworth 67 y/o F admitted on 02/21/22 for abdominal pain. Chief Complaint: [] Date of admission: 02/21/22 11:00 Discharge date: 02/23/22 Primary care physician: Turner Devine Admitting clinician: Rosa Elena Garay Attending physician on admission: Rosa Elena Garay Consults: 02/22/22 07:44 Consult to Physician [CONS] Routine Comment: Consulting Provider: Preston Mukherjee Reason For Exam: Physician to Consult Attending physician on discharge: Rosa Elena Garay Discharging clinician: Rosa Elena Garay COURSE Hospital Course Hospital course: 67-year-old female who presented to the emergency room with a 3-day history of left lower quadrant pain and abdominal distention. Abdominal x-rays showed dilated loops of small bowel. CT showed dilated loops of small bowel and a long segment of inflamed sigmoid colon compatible with diverticulitis initial evaluation suggested that she had an obstruction but with bowel rest and addition of metoclopramide she started having bowel movements. Her white blood count decreased from 13,000-7000. She is clinically stable at this time. Her BUN and creatinine along with significantly elevated due to acute on chronic kidney failure stage IV. She was seen by nephrology and they have arranged for outpatient follow-up. Discharge diagnosis: Acute diverticulitis Secondary discharge diagnosis: Adynamic ileus Acute on chronic kidney injury Kidney transplant recipient Congestive heart failure History of atrial fibrillation Reason for admission: acute diverticulitis Procedures: None Pertinent studies/significant findings: CT of abdomen and pelvis Complications: None Time Spent with Patient Time attestation: Total time spent providing and/or coordinating discharge services: Physical Examination Vital Signs Vital signs: Temp Pulse Resp BP Pulse Ox 97.8 F 69 18 144/90 98 02/23/22 12:00 02/23/22 12:00 02/23/22 12:00 02/23/22 12:00 02/23/22 12:00 General physical appearance General physical exam: well developed, well nourished, no distress, no pain and chronically ill Eyes Eye exam: PERRL and normal ocular movement ENT ENT exam: normal nares, normal mucosa and decreased hearing Head Head exam IM: Present atraumatic, normal inspection and normocephalic Neck Neck exam: no masses, no bruits, trachea midline, no lymphadenopathy and no venous distension Cardiovascular Cardiovascular exam IM: Present normal rate and rhythm, RRR, +S1 and +S2; Absent JVD or tachycardia Respiratory Respiratory exam: normal expansion, normal respiratory effort and clear to auscultation Abdomen Abdomen: Present soft and non tender; Absent masses, guarding or distended Integumentary Integumentary: Present no rash, no growths and no abnormal pigmentation Neurologic Neurologic: Present normal coordination and normal sensation Musculoskeletal Musculoskeletal: Present normal gait and normal posture Psychiatric Psychiatric: Present oriented to time, oriented to person, oriented to place, speech is normal and memory intact Discharge Plan Patient/Caregiver Discharge Instructions Activity: increase activity as tolerated Diet: Renal Prescriptions: New amoxicillin-pot clavulanate [Augmentin] 500-125 mg tablet 1 tab PO Q8H Qty: 30 1RF metronidazole 500 mg tablet 500 mg PO TID Qty: 40 0RF Continued tacrolimus [Prograf] 1 mg capsule 3 mg PO BID 0RF prednisone 5 mg tablet 5 mg PO QDAY 0RF omeprazole 20 MG capsule 20 mg PO DAILY 0RF Rx Instructions: 30 mins. before morning meal donepezil 10 MG tablet 10 mg PO HS 0RF torsemide 20 mg PO DAILY 0RF mycophenolate mofetil 250 mg Capsule 750 mg PO BID 0RF clopidogrel 75 mg tablet 1 tab PO QDAY 0RF levothyroxine 100 mcg tablet 1 tab PO QDAY 0RF metoprolol succinate 25 mg tablet extended release 24 hr 25 mg PO BID 0RF Rx Instructions: 3 tabs BID cholecalciferol (vitamin D3) 125 mcg (5,000 unit) Capsule 125 mcg PO QDAY 0RF quetiapine 50 mg tablet 100 mg PO HS 0RF Prolia 60 mg/mL syringe 60 mg subcut Q3M 0RF Label Comments: Recently had this magnesium oxide 400 mg magnesium Tablet 480 mg PO QDAY 0RF Eliquis 5 mg tablet 5 mg PO BID Qty: 60 0RF atorvastatin 80 mg tablet 1 tab PO QDAY 0RF allopurinol 100 mg tablet 1 tab PO QDAY 0RF Centrum Silver Women 1 tab PO DAILY 0RF Discontinued losartan 50 mg tablet 1 tab PO QDAY 0RF potassium 1 tab PO DAILY 0RF Follow Up Plan Follow up with: Turner Devine MD [Primary Care Provider] - Rosa Elena Garay MD [Physician] - (Office visit with me on 07 Mar 2022) Patient Disposition: Home, Self-Care Prognosis: Good Rehab Potential: Good I certify that the patient requires SNF services: No Overall status at discharge: patient is progressing back to baseline Discharge Orders: Discharge Order (Routine); Ordered 02/23/22 Ordered By: Rosa Elena Garay Pending Pending Pending: Resuscitation Status Resuscitate (Full Code) Diet GI Soft/Transitional Start MonFeb 23 1436 Apixaban (Apixaban 5 Mg Tablet) 5 mg PO BID [facility] Admin: 02/23/22 09:22 Dose: 5 mg Documented by: Cosigned by: Admin: 02/22/22 21:19 Dose: 5 mg Documented by: Admin: 02/22/22 11:37 Dose: 5 mg Documented by: Admin: 02/21/22 20:29 Dose: 5 mg Documented by: Admin: 02/21/22 08:55 Dose: 5 mg Documented by: Admin: 02/20/22 21:00 Dose: 5 mg Documented by: Admin: 02/20/22 08:33 Dose: 5 mg Documented by: Admin: 02/19/22 21:44 Dose: 5 mg Documented by: [email or web address] Clopidogrel Bisulfate (Clopidogrel 75 Mg Tablet) 75 mg PO QDAY [facility] Admin: 02/23/22 09:22 Dose: 75 mg Documented by: Cosigned by: Admin: 02/22/22 11:37 Dose: 75 mg Documented by: Admin: 02/21/22 08:56 Dose: 75 mg Documented by: Admin: 02/20/22 08:33 Dose: 75 mg Documented by: [email or web address] Donepezil HCl (Donepezil 10 Mg Tablet) 10 mg PO [facility] Admin: 02/22/22 21:19 Dose: 10 mg Documented by: Admin: 02/21/22 20:29 Dose: 10 mg Documented by: Admin: 02/20/22 21:00 Dose: 10 mg Documented by: Admin: 02/19/22 21:44 Dose: 10 mg Documented by: [email or web address] Piperacillin Sod/Tazobactam (Sod 2.25 gm/ Dextrose) 50 mls @ 100 mls/hr IV Q8H BK [facility] Admin: 02/23/22 14:34 Dose: 100 mls/hr Documented by: Cosigned by: Infusion: 02/23/22 06:05 Dose: 0 mls/hr Documented by: Admin: 02/23/22 05:32 Dose: 100 mls/hr Documented by: Infusion: 02/22/22 22:01 Dose: 0 mls/hr Documented by: Admin: 02/22/22 21:20 Dose: 100 mls/hr Documented by: Infusion: 02/22/22 14:15 Dose: 0 mls/hr Documented by: Admin: 02/22/22 13:43 Dose: 100 mls/hr Documented by: Infusion: 02/22/22 06:33 Dose: 0 mls/hr Documented by: Admin: 02/22/22 05:22 Dose: 100 mls/hr Documented by: Infusion: 02/21/22 21:00 Dose: 0 mls/hr Documented by: Admin: 02/21/22 20:28 Dose: 100 mls/hr Documented by: Infusion: 02/21/22 14:42 Dose: 0 mls/hr Documented by: Admin: 02/21/22 14:08 Dose: 100 mls/hr Documented by: Infusion: 02/21/22 08:12 Dose: 0 mls/hr Documented by: Admin: 02/21/22 05:53 Dose: 100 mls/hr Documented by: Infusion: 02/21/22 00:20 Dose: 0 mls/hr Documented by: Admin: 02/20/22 23:15 Dose: 100 mls/hr Documented by: Infusion: 02/20/22 16:00 Dose: 0 mls/hr Documented by: Admin: 02/20/22 15:24 Dose: 100 mls/hr Documented by: Infusion: 02/20/22 10:23 Dose: 0 mls/hr Documented by: Admin: 02/20/22 05:32 Dose: 100 mls/hr Documented by: Infusion: 02/19/22 22:38 Dose: 0 mls/hr Documented by: Admin: 02/19/22 21:43 Dose: 100 mls/hr Documented by: Infusion: 02/19/22 17:26 Dose: 0 mls/hr Documented by: [email or web address] Admin: 02/19/22 16:42 Dose: 100 mls/hr Documented by: [email or web address] Levothyroxine Sodium (Levothyroxine 100 Mcg Tablet) 100 mcg PO ACB [facility] Admin: 02/23/22 07:38 Dose: 100 mcg Documented by: Cosigned by: Admin: 02/22/22 07:52 Dose: 100 mcg Documented by: Admin: 02/21/22 07:52 Dose: 100 mcg Documented by: Admin: 02/20/22 08:33 Dose: 100 mcg Documented by: [email or web address] Methylprednisolone Sodium Succinate (Methylprednisolone Sod Succ 125 Mg/2 Ml Vial) 62.5 mg IV Q12 [facility] Admin: 02/23/22 09:21 Dose: 62.5 mg Documented by: Cosigned by: Admin: 02/22/22 21:20 Dose: 62.5 mg Documented by: Admin: 02/22/22 09:59 Dose: 62.5 mg Documented by: Admin: 02/21/22 20:28 Dose: 62.5 mg Documented by: Admin: 02/21/22 08:55 Dose: 62.5 mg Documented by: Admin: 02/20/22 21:00 Dose: 62.5 mg Documented by: Admin: 02/20/22 08:32 Dose: 62.5 mg Documented by: Admin: 02/19/22 21:43 Dose: 62.5 mg Documented by: [email or web address] Metoprolol Succinate (Metoprolol Succinate 25 Mg Tab.Xl.24h) 25 mg PO BID [facility] Admin: 02/23/22 09:22 Dose: 25 mg Documented by: Cosigned by: Admin: 02/22/22 21:19 Dose: 25 mg Documented by: Admin: 02/22/22 09:58 Dose: 25 mg Documented by: Admin: 02/21/22 20:29 Dose: 25 mg Documented by: Admin: 02/21/22 10:30 Dose: 25 mg Documented by: Admin: 02/20/22 21:00 Dose: 25 mg Documented by: Admin: 02/20/22 10:19 Dose: 25 mg Documented by: Admin: 02/19/22 21:44 Dose: 25 mg Documented by: JASSI Mycophenolate Mofetil (Mycophenolate 250 Mg Capsule) 750 mg PO BID [facility] Admin: 02/23/22 07:38 Dose: 750 mg Documented by: Cosigned by: Admin: 02/22/22 21:19 Dose: 750 mg Documented by: Admin: 02/22/22 07:51 Dose: 750 mg Documented by: Admin: 02/21/22 20:29 Dose: 750 mg Documented by: Admin: 02/21/22 07:51 Dose: 750 mg Documented by: Admin: 02/20/22 21:00 Dose: 750 mg Documented by: Admin: 02/20/22 08:33 Dose: 750 mg Documented by: Admin: 02/19/22 21:44 Dose: 750 mg Documented by: JASSI Pantoprazole Sodium (Pantoprazole 40 Mg Vial) 40 mg IV BIDAC [facility] Admin: 02/23/22 07:37 Dose: 40 mg Documented by: Cosigned by: Admin: 02/22/22 17:02 Dose: 40 mg Documented by: Admin: 02/22/22 07:51 Dose: 40 mg Documented by: Admin: 02/21/22 16:52 Dose: 40 mg Documented by: Admin: 02/21/22 07:51 Dose: 40 mg Documented by: Admin: 02/20/22 16:31 Dose: 40 mg Documented by: Admin: 02/20/22 08:32 Dose: 40 mg Documented by: Admin: 02/19/22 17:55 Dose: 40 mg Documented by: [email or web address] Quetiapine Fumarate (Quetiapine 100 Mg Tablet) 100 mg PO HS [facility] Admin: 02/22/22 21:19 Dose: 100 mg Documented by: Admin: 02/21/22 20:29 Dose: 100 mg Documented by: Admin: 02/20/22 21:00 Dose: 100 mg Documented by: Admin: 02/19/22 21:44 Dose: 100 mg Documented by: [email or web address] Sodium Bicarbonate (Sodium Bicarbonate 650 Mg Tablet) 1,300 mg PO TID [facility] Admin: 02/23/22 14:31 Dose: 1,300 mg Documented by: Cosigned by: Admin: 02/23/22 09:21 Dose: 1,300 mg Documented by: Cosigned by: Admin: 02/22/22 21:19 Dose: 1,300 mg Documented by: Admin: 02/22/22 13:43 Dose: 1,300 mg Documented by: [email or web address] Admin: 02/22/22 09:59 Dose: 1,300 mg Documented by: DOMINIC Tacrolimus (Tacrolimus 1 Mg Capsule) 3 mg PO BID [facility] Admin: 02/23/22 10:26 Dose: 3 mg Documented by: Cosigned by: Admin: 02/22/22 21:20 Dose: 3 mg Documented by: Admin: 02/22/22 09:59 Dose: 3 mg Documented by: Admin: 02/21/22 20:28 Dose: 3 mg Documented by: Admin: 02/21/22 08:57 Dose: 3 mg Documented by: Admin: 02/20/22 21:05 Dose: 3 mg Documented by: Admin: 02/20/22 10:19 Dose: 3 mg Documented by: [email or web address] Admin: 02/19/22 21:43 Dose: 3 mg Documented by: JASSI Torsemide (Torsemide 20 Mg Tablet) 20 mg PO DAILY [facility] Admin: 02/23/22 09:21 Dose: 20 mg Documented by: Cosigned by: Admin: 02/22/22 09:59 Dose: 20 mg Documented by: Admin: 02/21/22 08:55 Dose: 20 mg Documented by: Admin: 02/20/22 10:19 Dose: 20 mg Documented by: [email or web address] Shift Summary 02/23/22 04:46 Shift Summary by Karla Henderson Primary Diagnosis: SBO, Diverticulitis Registration Status: IN Day of Hospitalization: Admitted 02/19/22 Date of Surgery (if applicable): NA. Pertinent Medical Dx/Issue(s): CHF, CAD, AFIB, recent pulmonary embolisms, Napoleon palsy, kidney transplant, depression with suicidal ideation, HLD, glaucoma. -nephrology consulted today for fluid volume overload: Per note: "Acute kidney injury on chronic kidney disease stage 4 of renal transplant with metabolic acidosis and hyponatremia, present on arrival. There is no recent history of IV contrast administration or NSAID use. Intravascular volume depletion unlikely. Tacrolimus toxicity is considered. It interacts with antibiotics and tacrolimus level needs to be monitored. No urgent acute hemodialysis need. Tacrolimus level (12 hour through) ordered. Tacrolimus level needs to be monitored during acute illness and with antibiotics. This may require transfer to a transplant center ([facility]) where tacrolimus level is available the same day." Interventions (wounds, diuresis, etc): IS, elevating feet in bed, ambulating TID, TQ2, CADY pump. Vital Signs with Trends: VSS on RA Neuro/Mental Status: A&Ox4, BA on for forgetfulness. Meds (abo, pain, BP, etc): Sodium bicarb started for metabolic acidosis and hyponatremia, no PRNs given. Zosyn Lines/Tubes: PIV to AUGUSTIN MATA with IV abx Lab/Rad results: Plan for am CT Date of last BM: 02/22/22. Elimination (remove Kaufman within 24h if appropriate): Incontinent with briefs on, pt will not tell you if wet, and up to commode. Recommendations/questions for MD: Activity: 1 assist with WadewYOLA. Showered this shift. Expected date of discharge: TBD, pt here last month for bilat PE's and in the ER multiple times. Discharge Plan (needs, disposition, etc): PT will DC home with when ready. Initialized on 02/23/22 04:46 - END OF NOTE
== END 2022-02-23 16:38 | disposition home or self-care (01) | DRG 392 ==
LOC: MEDSUR 09:13 → ED 09:13 → MEDSUR 13:30
PROVIDERS: ADMIT Family Medicine Adult Medicine; ATTEND Family Medicine Adult Medicine

== ENCOUNTER 2022-02-27 15:34 | Inpatient (IN) ==
[2022-02-27] MEDS ORDERED: ACETAMINOPHEN 500 MG TABLET PO ONE (15:46)
[2022-02-27] MEDS ORDERED: 0.9 % SODIUM CHLORIDE 1,000 ML IV ONE (15:46)
[2022-02-27 15:47] LABS: POC Calcium, Ionized 0.76 (1.16-1.32); POC Creatinine 2.6 (0.6-1.2); POC Potassium 3.5 (3.3-5.1)
--- NOTE | 2022-02-27 15:52 | Emergency Department Note ---
HPI General Chief complaint: Altered Mental Status Stated complaint: n/v Time Seen by Provider: 02/27/22 15:41 Source: EMS Mode of arrival: ambulatory Limitations: altered mental status History of Present Illness HPI Narrative: Patient with history of diverticulitis urinary tract infections renal transplant chronic kidney disease CHF, brought EMS transport after reportedly was found disoriented confused in garage by her at home. Patient recently being treated for diverticulitis with Augmentin and Flagyl. Upon arrival not seen noticing memory being in garage but no focal neurologic deficit and is awake and alert in bed. Does admit to still having diarrhea. No significant increasing abdominal pain. Was noted to be febrile upon arrival Patient denies current CP, sob, fever, chills, abdominal pain, n/v/d/c, focal acute weakness, loss/change of sensation, or any other complaints at this time. PMH/PSHx/Meds/Allergies/SH/FH as per nursing documentation and reviewed. A full 10 point review of systems reviewed and negative except as noted in HPI. Related Data Home Medications Medication Instructions Recorded Confirmed omeprazole 20 mg capsule,delayed 20 mg PO DAILY 08/11/15 02/19/22 release tacrolimus 1 mg capsule, 3 mg PO BID cap 02/05/16 02/19/22 immediate-release (Prograf) prednisone 5 mg tablet 5 mg PO QDAY 06/07/17 02/19/22 donepezil 10 mg tablet 10 mg PO HS 04/22/19 02/19/22 mycophenolate mofetil 250 mg 750 mg PO BID 05/15/21 02/19/22 capsule torsemide 20 mg PO DAILY 05/15/21 02/19/22 cholecalciferol (vitamin D3) 125 125 mcg PO QDAY 01/22/22 02/19/22 mcg (5,000 unit) capsule clopidogrel 75 mg tablet 1 tab PO QDAY 01/22/22 02/19/22 denosumab 60 mg/mL subcutaneous 60 mg SUBCUT Q3M 01/22/22 02/20/22 syringe (Prolia) levothyroxine 100 mcg tablet 1 tab PO QDAY 01/22/22 02/19/22 metoprolol succinate 25 mg 25 mg PO BID 01/22/22 02/19/22 tablet,extended release 24 hr quetiapine 50 mg tablet 100 mg PO HS 01/22/22 02/19/22 magnesium oxide 480 mg PO QDAY 01/23/22 02/19/22 Centrum Silver Women 1 tab PO DAILY 02/19/22 02/19/22 allopurinol 100 mg tablet 1 tab PO QDAY 02/19/22 02/19/22 atorvastatin 80 mg tablet 1 tab PO QDAY 02/19/22 02/19/22 Previous Rx's Medication Instructions Recorded apixaban 5 mg tablet (Eliquis) 5 mg PO BID #60 tab 02/16/22 amoxicillin 500 mg-potassium 1 tab PO Q8H #30 tab 02/23/22 clavulanate 125 mg tablet (Augmentin) metronidazole 500 mg tablet 500 mg PO TID #40 tab 02/23/22 ondansetron 4 mg disintegrating 4 mg PO Q8H PRN #9 tab 02/26/22 tablet Allergies Allergy/AdvReac Type Severity Reaction Status Date / Time ciprofloxacin AdvReac Intermediate Cramping Verified 02/27/22 15:35 of the Muscles levofloxacin AdvReac Intermediate Other Verified 02/27/22 15:35 Quinolones AdvReac Intermediate Muscle Pain Verified 02/27/22 15:35 Cephalosporins AdvReac Mild Rash Verified 02/27/22 15:35 cilastatin [From Primaxin] AdvReac Mild Rash Verified 02/27/22 15:35 droperidol [From Inapsine] AdvReac Mild Rash Verified 02/27/22 15:35 imipenem [From Primaxin] AdvReac Mild Rash Verified 02/27/22 15:35 Labetalol [From Trandate] AdvReac Mild Rash Verified 02/27/22 15:35 meperidine [From Demerol] AdvReac Mild Rash Verified 02/27/22 15:35 metronidazole [From Flagyl] AdvReac Mild Rash Verified 02/27/22 15:35 pentazocine [From Talwin] AdvReac Mild Rash Verified 02/26/22 05:41 phenobarbital AdvReac Mild Rash Verified 02/26/22 05:41 propoxyphene AdvReac Mild Rash Verified 02/26/22 05:41 [From Darvocet-N] tobramycin AdvReac Mild Rash Verified 02/26/22 05:41 Review of Systems ROS ROS Narrative: see HPI PFSH Narrative Patient History Narrative: Narrative: Medical/Surgical/Family History All Active Problems (Updated 02/27/22 @ 17:11 by Keshawn Avendano DO) Nausea (Acute) Influenza A (Acute) Encephalopathy, metabolic (Acute) Leukocytosis (Acute) Fever (Acute) Hypomagnesemia (Acute) Acute renal failure superimposed on stage 4 chronic kidney disease (Acute) Adynamic ileus (Acute) Vertigo (Acute) Gout flare (Acute) Pulmonary emboli (Acute) Stenosis of both vertebral arteries (Acute) Acute dyspnea (Acute) CHF (congestive heart failure) (Acute) CAD (coronary artery disease) (Acute) Atrial fibrillation (Acute) SBO (small bowel obstruction) (Acute) Diverticulitis of sigmoid colon (Acute) Nausea & vomiting (Acute) Matos's palsy (Acute) Diverticulitis (Acute) Constipation (Acute) Acute diverticulitis of intestine (Acute) Kidney transplant recipient (Acute) Awmej-ox-qwpyfow kidney injury (Acute) Cardiomegaly (Acute) Elevated brain natriuretic peptide (BNP) level (Acute) Fall (Acute) Hematoma of parietal scalp (Acute) Depression with suicidal ideation (Acute) Acute UTI (urinary tract infection) (Acute) Ureterolithiasis (Acute) Compression fracture of T11 vertebra (Acute) Suicide attempt (Acute) Laceration (Acute) Acute UTI (Acute) Anemia (Acute) CRF (chronic renal failure) (Acute) Acute alteration in mental status (Acute) ST elevation (STEMI) myocardial infarction (Acute) Right shoulder pain (Acute) Acute right-sided thoracic back pain (Acute) Hypertension (Acute) Urinary frequency (Acute) 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) Secondary hyperparathyroidism of renal origin (Chronic) Hyperlipidemia (Chronic) Glaucoma (Chronic) Macular degeneration (Chronic) Diverticulitis (Chronic) Idiopathic aseptic necrosis of femur (Chronic) Osteoporosis (Chronic) Vitamin D deficiency (Chronic) Anemia (Chronic) Essential hypertension (Chronic) Chronic kidney disease (CKD) (Chronic) Medical History Anemia Borderline hyperglycemia Chronic kidney disease (CKD) Stage 3 Dislocation, finger, metacarpophalangeal joint Diverticulitis Essential hypertension Glaucoma Hyperlipidemia Idiopathic aseptic necrosis of femur Macular degeneration Nausea & vomiting 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 Patient with chronic kidney insufficiency Osteoporosis Other mcfp (current) drug therapy Phlebitis and thrombophlebitis Secondary hyperparathyroidism of renal origin Urinary tract infection Vitamin D deficiency Surgical History 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 Family history of AICD (automatic internal cardiac defibrillator) (~1996) History of hand surgery (~08/2015) History of hysterectomy (~1978) History of intraocular lens implant February & March 1989 History of kidney transplant (07/27/00) History of knee surgery (~04/2009) History of orthopedic surgery (04/28/96) mohamud placement in right leg 04/28/96 @ [facility]; muscle relocation and skin grafts of right leg 04/29/96 @ [facility] History of parathyroidectomy (11/27/95) History of surgery fistula placement February 1993 @ [facility]; fistula declot; Graft placement upper right arm 10/1999 @ [facility] Kidney replaced by transplant Status post biopsy of kidney (~03/2007) Family History Father Hypertension CVA (cerebral vascular accident) Colon polyps needed surgical resection/partial colectomy Prostate cancer Hyperlipidemia Social History Smoking Status: Never smoker Alcohol Intake Frequency: does not drink Substance Use: does not use Exam Narrative Narrative: PHYSICIAL EXAM: Vitals reviewed GENERAL: Awake alert in bed, no acute distress,The patient appears nourished and normally developed. Vital signs as documented. EYES: Head exam is unremarkable. No scleral icterus no nystagmus no gaze preference face symmetric no droop Pupils equal round reactive bilaterally, EOMI grossly intact HEENT: Mucous membranes moist. Nares patent without copious rhinorrhea. No evidence of trauma to tongue LUNGS: Maintaining adequate SPO2 on room air,-r/r/w without any respiratory distress. Intermittent nonproductive cough during exam CARDIAC: Rhythm is irregular rate irregular consistent atrial fibrillation ABDOMEN: Soft, non-tender, non-distended, no rebound/guarding, with no obvious masses, no pulsatile mass EXTREMITIES: No peripheral edema, with no obvious deformities. Chronic surgical texture changes right lower extremity no asymmetric swelling SKIN: Good color, with no significant rashes. No pallor. NEURO: No obvious neurological deficits, normal sensation and strength bilaterally. NIH 0 No pronator drift General Limitations: altered mental status Course Reevaluation(s) Reevaluation #1: now at bedside, states confusion started night prior has had similar reactions when febrile in the past additionally states he has had URI cold symptoms over the last week she has developed similar symptoms with fever that he was unaware of her being febrile night prior but likely contributing to presentation today, says she has shortness of breath issues approximately 1 month feels more baseline right now we will continue to monitor cautiously hydrated distended patient's known CHF Hematocrit and renal function stable and trended, no elevation of lactic acid Concern for possible viral etiology of fever due to reporting similar symptoms prior to patient's onset Time: 15:57 Reevaluation #2: Patient found to be influenza positive, urinalysis dip without any significant signs of infection, due to patient's reported confusion along with chronic kidney disease we will compromise and tacrolimus not clear onset of fever or symptoms with confusion starting yesterday do not feel patient would be viral ropriate candidate for Tamiflu at this time Time: 16:08 Reevaluation #3: feels patient is improviing but does not feel comfortable monitoring patient at home due to chronic comorbidities, also states her visiting home fabrice denilson got of work late today so patient has yet to receive her daily prescribed medications Time: 17:01 Consultations Consultation #1: Dr. Villanueva will come the emergency department to evaluate patient for admission, discussed presentation findings Time: 17:16 Vital Signs Vital signs: Vital Signs Temperature 102.4 F H 02/27/22 15:35 Pulse Rate 115 H 02/27/22 15:35 Respiratory Rate 22 02/27/22 15:35 Blood Pressure 115/98 02/27/22 15:35 Pulse Oximetry (%) 97 02/27/22 15:35 Temperature 102.4 F H 02/27/22 15:35 Pulse Rate 125 H 02/27/22 17:01 Respiratory Rate 27 H 02/27/22 17:01 Blood Pressure 107/79 02/27/22 17:01 Pulse Oximetry (%) 95 02/27/22 17:01 MDM MDM Narrative Medical decision making narrative: Narrative: Lab Data Result diagrams: 02/27/22 15:48 Labs: Lab Results 02/27/22 02/27/22 02/27/22 Range/Units 15:43 15:48 15:48 WBC 14.9 H (4.5-11.0) K/mcL RBC 3.26 L (3.59-5.38) M/mcL Hgb 9.4 L (11.2-15.7) g/dL Hct 30.1 L (34.1-44.9) % POC Hct 29.0 L (36-48) MCV 92.3 (80.0-100.0) fL MCH 28.8 (26.0-34.0) pg MCHC 31.2 (31.0-36.0) g/dL RDW 15.8 H (11.5-14.5) % Plt Count 279 (140-440) K/mcL MPV 10.4 (7.4-10.4) fL Neut % (Auto) 87.8 H (38.0-78.0) % Lymph % (Auto) 6.4 L (15.5-49.0) % Gregg % (Auto) 5.5 (1.0-12.0) % Eos % (Auto) 0.2 (0.0-7.0) % Baso % (Auto) 0.1 (0.0-2.0) % Lymph # (Auto) 0.95 L (1.50-4.80) K/mcL Gregg # (Auto) 0.82 (0.10-0.90) K/mcL Eos # (Auto) 0.03 (0.00-0.70) K/mcL Baso # (Auto) 0.02 (0.00-0.30) K/mcL Absolute Neutrophils 13.10 H (1.80-8.00) K/mcL VBG Lactic Acid 0.9 (0.5-2.0) mmol/L POC Sodium 137 (133-145) POC Potassium 3.5 (3.3-5.1) POC Chloride 102 (96-108) POC Total CO2 21.0 L (22-30) POC BUN 35 H (6-20) POC Creatinine 2.6 H (0.6-1.2) POC Glucose 105 (70-105) POC WB Ioniz Calcium 0.76 L (1.16-1.32) Magnesium 1.3 L (1.6-2.5) mg/dL Lipase 144 H (7-60) U/L Procalcitonin (<0.10) ng/mL Urine Color Urine Appearance (Clear) Urine pH (5.0-9.0) Ur Specific Peyton (1.000-1.035) Urine Protein (Negative) mg/dL Urine Glucose (UA) (Negative) mg/dL Urine Ketones (Negative) mg/dL Urine Occult Blood (Negative) mg/dL Urine Nitrate (Negative) Urine Bilirubin (Negative) mg/dL Urine Urobilinogen mg/dL Ur Leukocyte Esterase (Negative) /uL Urine RBC (0-3) /hpf Urine WBC (0-4) /hpf Ur Squamous Epith Cells (0-4) /hpf Urine Bacteria (0) /hpf Urine Mucus (None) /hpf Ur Culture Indicated? 02/27/22 02/27/22 Range/Units 15:48 16:02 WBC (4.5-11.0) K/mcL RBC (3.59-5.38) M/mcL Hgb (11.2-15.7) g/dL Hct (34.1-44.9) % POC Hct (36-48) MCV (80.0-100.0) fL MCH (26.0-34.0) pg MCHC (31.0-36.0) g/dL RDW (11.5-14.5) % Plt Count (140-440) K/mcL MPV (7.4-10.4) fL Neut % (Auto) (38.0-78.0) % Lymph % (Auto) (15.5-49.0) % Gregg % (Auto) (1.0-12.0) % Eos % (Auto) (0.0-7.0) % Baso % (Auto) (0.0-2.0) % Lymph # (Auto) (1.50-4.80) K/mcL Gregg # (Auto) (0.10-0.90) K/mcL Eos # (Auto) (0.00-0.70) K/mcL Baso # (Auto) (0.00-0.30) K/mcL Absolute Neutrophils (1.80-8.00) K/mcL VBG Lactic Acid (0.5-2.0) mmol/L POC Sodium (133-145) POC Potassium (3.3-5.1) POC Chloride (96-108) POC Total CO2 (22-30) POC BUN (6-20) POC Creatinine (0.6-1.2) POC Glucose (70-105) POC WB Ioniz Calcium (1.16-1.32) Magnesium (1.6-2.5) mg/dL Lipase (7-60) U/L Procalcitonin 0.28 H (<0.10) ng/mL Urine Color Yellow Urine Appearance Hazy A (Clear) Urine pH 6.0 (5.0-9.0) Ur Specific Peyton 1.010 (1.000-1.035) Urine Protein 100 A (Negative) mg/dL Urine Glucose (UA) Negative (Negative) mg/dL Urine Ketones Negative (Negative) mg/dL Urine Occult Blood 0.03 (Negative) mg/dL Urine Nitrate Negative (Negative) Urine Bilirubin Negative (Negative) mg/dL Urine Urobilinogen Negative mg/dL Ur Leukocyte Esterase Negative (Negative) /uL Urine RBC < 1 (0-3) /hpf Urine WBC 2 (0-4) /hpf Ur Squamous Epith Cells < 1 (0-4) /hpf Urine Bacteria None (0) /hpf Urine Mucus Few A (None) /hpf Ur Culture Indicated? No ED POC Tests ED POC Tests: AMEE - Influenza A Positive AMEE - Influenza B Negative AMEE - SARS Antigen Negative Discharge Plan Patient/Caregiver Discharge Instructions Pt seen by DELIVERY DRIVER/PA only: No Clinical Impression: Influenza A, Encephalopathy, metabolic, Leukocytosis, Fever, Hypomagnesemia Patient Disposition: Xfer As Inpt ([facility]) Follow up with: Turner Devine MD [Primary Care Provider] - Prescriptions: No Action tacrolimus [Prograf] 1 mg capsule 3 mg PO BID 0RF prednisone 5 mg tablet 5 mg PO QDAY 0RF omeprazole 20 MG capsule 20 mg PO DAILY 0RF Rx Instructions: 30 mins. before morning meal donepezil 10 MG tablet 10 mg PO HS 0RF torsemide 20 mg PO DAILY 0RF mycophenolate mofetil 250 mg Capsule 750 mg PO BID 0RF clopidogrel 75 mg tablet 1 tab PO QDAY 0RF levothyroxine 100 mcg tablet 1 tab PO QDAY 0RF metoprolol succinate 25 mg tablet extended release 24 hr 25 mg PO BID 0RF Rx Instructions: 3 tabs BID cholecalciferol (vitamin D3) 125 mcg (5,000 unit) Capsule 125 mcg PO QDAY 0RF quetiapine 50 mg tablet 100 mg PO HS 0RF Prolia 60 mg/mL syringe 60 mg subcut Q3M 0RF Label Comments: Recently had this magnesium oxide 400 mg magnesium Tablet 480 mg PO QDAY 0RF Eliquis 5 mg tablet 5 mg PO BID Qty: 60 0RF atorvastatin 80 mg tablet 1 tab PO QDAY 0RF allopurinol 100 mg tablet 1 tab PO QDAY 0RF Centrum Silver Women 1 tab PO DAILY 0RF amoxicillin-pot clavulanate [Augmentin] 500-125 mg tablet 1 tab PO Q8H Qty: 30 1RF metronidazole 500 mg tablet 500 mg PO TID Qty: 40 0RF ondansetron 4 mg tablet,disintegrating 4 mg PO Q8H PRN (Reason: nausea and vomiting) Qty: 9 0RF
[2022-02-27 16:32] LABS: Basophils # (Auto) 0.02 K/mcL (0.00-0.30); Basophils % (Auto) 0.1 % (0.0-2.0); Eosinophils # (Auto) 0.03 K/mcL (0.00-0.70); Eosinophils % (Auto) 0.2 % (0.0-7.0); Hematocrit 30.1 % (34.1-44.9); Hemoglobin 9.4 g/dL (11.2-15.7); Lymphocytes # (Auto) 0.95 K/mcL (1.50-4.80); Lymphocytes % (Auto) 6.4 % (15.5-49.0); Mean Cell Volume 92.3 fL (80.0-100.0); Mean Corpuscular HGB Conc 31.2 g/dL (31.0-36.0); Mean Platelet Volume 10.4 fL (7.4-10.4); Monocytes # (Auto) 0.82 K/mcL (0.10-0.90); Monocytes % (Auto) 5.5 % (1.0-12.0); Neutrophils % (Auto) 87.8 % (38.0-78.0); Platelet Count 279 K/mcL (140-440); RBC 3.26 M/mcL (3.59-5.38); Red Cell Distribution Width 15.8 % (11.5-14.5); WBC 14.9 K/mcL (4.5-11.0)
[2022-02-27 16:36] LABS: Appearance,Urine HAZY (Clear); Bilirubin,Urine Negative (Negative); Color,Urine YELLOW; Culture Indicated,Urine No; Glucose,Urine (UA) Negative (Negative); Ketones,Urine Negative (Negative); Leukocyte Esterase,Urine Negative /uL (Negative); Mucus,Urine FEW /hpf; Nitrate,Urine Negative (Negative); Protein,Urine 100 mg/dL (Negative); Urine Blood 0.03 mg/dL (Negative); Urine RBC < 1 /hpf (0-3); Urine Squamous Epithelial Cell < 1 /hpf (0-4); Urine WBC 2 /hpf (0-4); Urobilinogen,Urine Negative
[2022-02-27] MEDS ORDERED: MAGNESIUM SULFATE 2 GM/50 ML BAG IV ONE (16:53)
--- NOTE | 2022-02-27 17:51 | Internal Med History&Physical ---
HPI History of Present Illness Patient information: Note initiated : 02/27/22 at 5:33 pm Service Date, if different from initiated Date: [] Patient: Wendy Ellsworth a 67 y/o F admitted on for n/v. Chief Complaint: [] History of present illness: Ms. Ellsworth is a 67 year old F Presents the ED with confusion fever rhinorrhea agitation. Patient was recently diagnosed admitted in January with diverticulitis and possible small bowel obstruction versus ileus. She presented back to the ED 3 days after discharge and had still been on Augmentin and Flagy for nausea but all other symptoms improving. She was reevaluated and treated it in the ED and her antibiotics were switched to Cipro as she felt the antibiotics were the ones are causing her nausea. And he was also sent with Monica. Her has been ill with upper respiratory tract infection symptoms and then she developed symptoms yesterday of rhinorrhea a little bit of confusion and some agitation and little bit of nausea as well as sinus congestion with coughing. She is on room air. Today she seemed more confused and had fevers and was more agitated thus brought into the ED. She is also had poor oral intake and poor appetite. She is evaluated in the ED and found to have influenza A. She is found to be tachycardic and febrile and a temperature of 102 and tachycardic to 120. Blood pressure borderline low systolic in the 90s. She also has hypomagnesemia and was given magnesium in the ED. She was given some fluids in the ED with some subjective improvement. Pressure still low and still tachycardic. unable to take care of at home at this time. He has actually been looking at getting her into a care facility because of her higher level of need. She feels her diverticulitis has greatly improved. Review of Systems: Pertinent positives as above. Denies headache/fever/chills/vomiting/chest or abdominal pain/cough/dyspnea. Remaining 10 point review of system reviewed negative PFSH PFSH All Active Problems (Updated 02/27/22 @ 17:11 by Keshawn Avendano DO) Nausea (Acute) Influenza A (Acute) Encephalopathy, metabolic (Acute) Leukocytosis (Acute) Fever (Acute) Hypomagnesemia (Acute) Acute renal failure superimposed on stage 4 chronic kidney disease (Acute) Adynamic ileus (Acute) Vertigo (Acute) Gout flare (Acute) Pulmonary emboli (Acute) Stenosis of both vertebral arteries (Acute) Acute dyspnea (Acute) CHF (congestive heart failure) (Acute) CAD (coronary artery disease) (Acute) Atrial fibrillation (Acute) SBO (small bowel obstruction) (Acute) Diverticulitis of sigmoid colon (Acute) Nausea & vomiting (Acute) Matos's palsy (Acute) Diverticulitis (Acute) Constipation (Acute) Acute diverticulitis of intestine (Acute) Kidney transplant recipient (Acute) [id number] kidney injury (Acute) Cardiomegaly (Acute) Elevated brain natriuretic peptide (BNP) level (Acute) Fall (Acute) Hematoma of parietal scalp (Acute) Depression with suicidal ideation (Acute) Acute UTI (urinary tract infection) (Acute) Ureterolithiasis (Acute) Compression fracture of T11 vertebra (Acute) Suicide attempt (Acute) Laceration (Acute) Acute UTI (Acute) Anemia (Acute) CRF (chronic renal failure) (Acute) Acute alteration in mental status (Acute) ST elevation (STEMI) myocardial infarction (Acute) Right shoulder pain (Acute) Acute right-sided thoracic back pain (Acute) Hypertension (Acute) Urinary frequency (Acute) Other half-way (current) drug therapy (Chronic) Secondary hyperparathyroidism of renal origin (Chronic) Hyperlipidemia (Chronic) Glaucoma (Chronic) Macular degeneration (Chronic) Diverticulitis (Chronic) Idiopathic aseptic necrosis of femur (Chronic) Osteoporosis (Chronic) Vitamin D deficiency (Chronic) Anemia (Chronic) Essential hypertension (Chronic) Chronic kidney disease (CKD) (Chronic) Medical History Anemia Borderline hyperglycemia Chronic kidney disease (CKD) Stage 3 Dislocation, finger, metacarpophalangeal joint Diverticulitis Essential hypertension Glaucoma Hyperlipidemia Idiopathic aseptic necrosis of femur Macular degeneration Nausea & vomiting 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 Patient with chronic kidney insufficiency Osteoporosis Other half-way (current) drug therapy Phlebitis and thrombophlebitis Secondary hyperparathyroidism of renal origin Urinary tract infection Vitamin D deficiency Surgical History 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 Family history of AICD (automatic internal cardiac defibrillator) (~1996) History of hand surgery (~08/2015) History of hysterectomy (~1978) History of intraocular lens implant February & March 1989 History of kidney transplant (07/27/00) History of knee surgery (~04/2009) History of orthopedic surgery (04/28/96) mohamud placement in right leg 04/28/96 @ [place]; muscle relocation and skin grafts of right leg 04/29/96 @ [place] History of parathyroidectomy (11/27/95) History of surgery fistula placement February 1993 @ [place]; fistula declot; Graft placement upper right arm 10/1999 @ [place] Kidney replaced by transplant Status post biopsy of kidney (~03/2007) Family History Father Hypertension CVA (cerebral vascular accident) Colon polyps needed surgical resection/partial colectomy Prostate cancer Hyperlipidemia Social History alcohol intake frequency: does not drink substance use type: does not use MEDS/ALLERGIES Home Medications and Allergies Home Medications Medication Instructions Recorded Confirmed Type omeprazole 20 mg capsule,delayed 20 mg PO DAILY 08/11/15 02/19/22 History release tacrolimus 1 mg capsule, 3 mg PO BID cap 02/05/16 02/19/22 History immediate-release (Prograf) prednisone 5 mg tablet 5 mg PO QDAY 06/07/17 02/19/22 History donepezil 10 mg tablet 10 mg PO HS 04/22/19 02/19/22 History mycophenolate mofetil 250 mg 750 mg PO BID 05/15/21 02/19/22 History capsule torsemide 20 mg PO DAILY 05/15/21 02/19/22 History cholecalciferol (vitamin D3) 125 125 mcg PO QDAY 01/22/22 02/19/22 History mcg (5,000 unit) capsule clopidogrel 75 mg tablet 1 tab PO QDAY 01/22/22 02/19/22 History denosumab 60 mg/mL subcutaneous 60 mg SUBCUT Q3M 01/22/22 02/20/22 History syringe (Prolia) levothyroxine 100 mcg tablet 1 tab PO QDAY 01/22/22 02/19/22 History metoprolol succinate 25 mg 25 mg PO BID 01/22/22 02/19/22 History tablet,extended release 24 hr quetiapine 50 mg tablet 100 mg PO HS 01/22/22 02/19/22 History magnesium oxide 480 mg PO QDAY 01/23/22 02/19/22 History apixaban 5 mg tablet (Eliquis) 5 mg PO BID #60 tab 02/16/22 02/19/22 Rx Centrum Silver Women 1 tab PO DAILY 02/19/22 02/19/22 History allopurinol 100 mg tablet 1 tab PO QDAY 02/19/22 02/19/22 History atorvastatin 80 mg tablet 1 tab PO QDAY 02/19/22 02/19/22 History amoxicillin 500 mg-potassium 1 tab PO Q8H #30 tab 02/23/22 Rx clavulanate 125 mg tablet (Augmentin) metronidazole 500 mg tablet 500 mg PO TID #40 tab 02/23/22 Rx ondansetron 4 mg disintegrating 4 mg PO Q8H PRN #9 tab 02/26/22 Rx tablet Allergies Allergy/AdvReac Type Severity Reaction Status Date / Time ciprofloxacin AdvReac Intermediate Cramping Verified 02/27/22 15:35 of the Muscles levofloxacin AdvReac Intermediate Other Verified 02/27/22 15:35 Quinolones AdvReac Intermediate Muscle Pain Verified 02/27/22 15:35 Cephalosporins AdvReac Mild Rash Verified 02/27/22 15:35 cilastatin [From Primaxin] AdvReac Mild Rash Verified 02/27/22 15:35 droperidol [From Inapsine] AdvReac Mild Rash Verified 02/27/22 15:35 imipenem [From Primaxin] AdvReac Mild Rash Verified 02/27/22 15:35 Labetalol [From Trandate] AdvReac Mild Rash Verified 02/27/22 15:35 meperidine [From Demerol] AdvReac Mild Rash Verified 02/27/22 15:35 metronidazole [From Flagyl] AdvReac Mild Rash Verified 02/27/22 15:35 pentazocine [From Talwin] AdvReac Mild Rash Verified 02/26/22 05:41 phenobarbital AdvReac Mild Rash Verified 02/26/22 05:41 propoxyphene AdvReac Mild Rash Verified 02/26/22 05:41 [From Darvocet-N] tobramycin AdvReac Mild Rash Verified 02/26/22 05:41 EXAM Constitutional Vitals: Temp Pulse Resp BP Pulse Ox 102.4 F H 125 H 29 H 96/72 95 02/27/22 15:35 02/27/22 17:01 02/27/22 17:16 02/27/22 17:16 02/27/22 17:01 Exam: General: Alert, Awake, No acute Distress Eyes/N/T: EOMI, PERRL, dMM Head/Neck: neck supple, normocephalic atraumatic CV: Tacky but regular, 2-3/6 SM, normal s1/s2 Pulm: Clear b/l, no wheezing/rhonchi/rales Abd: soft, nontender, +BS x4 Ext: no clubbing/cyanosis/edema Neuro: Alert, no focal deficits, moves all extremities, CN 2-12 grossly intact, symmetrical strength b/l upper/lower, sensations intact b/l upper/lower Skin: warm/dry DATA Data Completed and Pending Labs: Labs from last 24 hours 02/27/22 02/27/22 02/27/22 16:02 15:48 15:48 WBC RBC Hgb Hct POC Hct MCV MCH MCHC RDW Plt Count MPV Neut % (Auto) Lymph % (Auto) [place] % (Auto) Eos % (Auto) Baso % (Auto) Lymph # (Auto) [place] # (Auto) Eos # (Auto) Baso # (Auto) Absolute Neutrophils VBG Lactic Acid 0.9 POC Sodium POC Potassium POC Chloride POC Total CO2 POC BUN POC Creatinine POC Glucose POC WB Ioniz Calcium Magnesium 1.3 L Lipase 144 H Procalcitonin 0.28 H Urine Color Yellow Urine Appearance Hazy A Urine pH 6.0 Ur Specific [place] 1.010 Urine Protein 100 A Urine Glucose (UA) Negative Urine Ketones Negative Urine Occult Blood 0.03 Urine Nitrate Negative Urine Bilirubin Negative Urine Urobilinogen Negative Ur Leukocyte Esterase Negative Urine RBC < 1 Urine WBC 2 Ur Squamous Epith Cells < 1 Urine Bacteria None Urine Mucus Few A Ur Culture Indicated? No 02/27/22 02/27/22 15:48 15:43 WBC 14.9 H RBC 3.26 L Hgb 9.4 L Hct 30.1 L POC Hct 29.0 L MCV 92.3 MCH 28.8 MCHC 31.2 RDW 15.8 H Plt Count 279 MPV 10.4 Neut % (Auto) 87.8 H Lymph % (Auto) 6.4 L [place] % (Auto) 5.5 Eos % (Auto) 0.2 Baso % (Auto) 0.1 Lymph # (Auto) 0.95 L [place] # (Auto) 0.82 Eos # (Auto) 0.03 Baso # (Auto) 0.02 Absolute Neutrophils 13.10 H VBG Lactic Acid POC Sodium 137 POC Potassium 3.5 POC Chloride 102 POC Total CO2 21.0 L POC BUN 35 H POC Creatinine 2.6 H POC Glucose 105 POC WB Ioniz Calcium 0.76 L Magnesium Lipase Procalcitonin Urine Color Urine Appearance Urine pH Ur Specific [place] Urine Protein Urine Glucose (UA) Urine Ketones Urine Occult Blood Urine Nitrate Urine Bilirubin Urine Urobilinogen Ur Leukocyte Esterase Urine RBC Urine WBC Ur Squamous Epith Cells Urine Bacteria Urine Mucus Ur Culture Indicated? A/P Narrative A/P Narrative: A: *Metabolic encephalopathy: 2/2 influenza A infection *Influenza A infection: *Sepsis: 2/2 above -Febrile/tachycardic/tachypneic/leukocytosis *Volume depletion: *Electrolyte disorder: Hypomagnesemia *Renal transplant patient with CKD IV: follow with Dr. Fortune -On immunosuppressive therapy *Anemia,chronic: *Recent admit for b/l PE: on eliquis *CAD w/stent last Summer: on statin/plavix/bb *HTN: Low BP on admit *Hypothyroidism: *GERD: *MCI vs mild Dementia / Anxiety: On donepezil and seroquel *SLE: *h/o recurrent diverticulitis: finish abx course *Generalized weakness/deconditioning/Debility: Has increasing needs at home & looking to get her into care facility -poor functional status P: -renally dose tamilfu, 30mg daily -IVF, monitor BP and other vitals closely -neurochecks -replete electrolytes -monitor cbc/cmp -finish home Abx -cont renal transplant medications -Continue Eliquis/Plavix/statin/BB -hold torsemide for volume depletion and low blood pressure - -PT/OT -CM for placement to SNF likely -ppx: Eliquis/home PPI Home medication reconciliation DNR Time Spent With Patient Time: Total time spent is greater than 50% in coordination of care (as documented) at patient's floor/unit and/or counseling patient: Total time spent with greater than 50% in coordination of care (as documented) at patient's floor/unit and/or counseling patient:: 50 - 70 minutes
[2022-02-27] MEDS ORDERED: MAGNESIUM SULFATE 2 GM/50 ML BAG IV PRN (19:02)
[2022-02-27] MEDS ORDERED: POLYETHYLENE GLYCOL 3350 17 GM PACKET PO PRN (19:02)
[2022-02-27] MEDS ORDERED: POTASSIUM CHLORIDE 20 MEQ TABLET PO PRN ×2 (19:02)
[2022-02-27] MEDS ORDERED: POTASSIUM CHLORIDE 40 MEQ in DEXTROSE 5% IN WATER 500 ML IV PRN (19:02)
[2022-02-27] MEDS ORDERED: IPRATROPIUM/ALBUTEROL 3 ML AMPUL.NEB NEB PRN (19:02)
--- NOTE | 2022-02-27 20:07 | XRay Report ---
HISTORY: Chest pain FINDINGS: The heart is mildly enlarged. The pulmonary vessels in the upper lobes are mildly engorged. There is no evidence of pneumonia or lung mass. No pleural effusion is present. Pacemaker remains well-positioned. Comparison with the prior exam from 02/22/22 shows no change in the heart size. The pulmonary vessels in the upper lobes are more prominent today. IMPRESSION: Mild congestive heart failure Interpreted and Authenticated by: José Garcia 02/27/22
[2022-02-27] MEDS: 0.9 % SODIUM CHLORIDE 1,000 ML IV SCH (20:55)
[2022-02-27] MEDS: 0.9 % SODIUM CHLORIDE 10 ML SYRINGE IV SCH (20:55)
[2022-02-27] MEDS: OSELTAMIVIR PHOSPHATE 30 MG CAPSULE PO SCH (20:55)
[2022-02-28] MEDS: ONDANSETRON 4 MG/2 ML VIAL IV PRN ×2 (03:54→23:57)
[2022-02-28] MEDS: 0.9 % SODIUM CHLORIDE 10 ML SYRINGE IV SCH ×3 (04:32→20:10)
[2022-02-28 06:31] LABS: Hematocrit 30.8 % (34.1-44.9); Hemoglobin 9.3 g/dL (11.2-15.7); Mean Cell Volume 93.6 fL (80.0-100.0); Mean Corpuscular HGB Conc 30.2 g/dL (31.0-36.0); Mean Platelet Volume 10.2 fL (7.4-10.4); Platelet Count 254 K/mcL (140-440); RBC 3.29 M/mcL (3.59-5.38); Red Cell Distribution Width 15.9 % (11.5-14.5); WBC 14.6 K/mcL (4.5-11.0)
[2022-02-28 06:59] LABS: ALT/SGPT 10 U/L (<40); AST/SGOT 20 U/L (<32); Albumin 2.8 gm/dL (3.2-5.2); Alkaline Phosphatase 72 U/L (39-117); Bilirubin,Direct 0.2 mg/dL (<0.3); Bilirubin,Total 0.4 mg/dL (0.1-1.0); Blood Urea Nitrogen 33 mg/dL (8-23); Carbon Dioxide 16 mmol/L (22-30); Chloride 101 mmol/L (96-108); Globulin 2.8 gm/dL (2.2-3.7); Glomerular Filtration Rate 22; Glucose 82 mg/dL (70-105); Lactate Dehydrogenase 279 U/L (135-225); Phosphorous 2.8 mg/dL (2.5-4.5); Triglycerides 81 mg/dL (<150); Uric Acid 9.2 mg/dL (2.5-8.0)
[2022-02-28] MEDS: 0.9 % SODIUM CHLORIDE 1,000 ML IV SCH (08:16)
[2022-02-28] MEDS: OSELTAMIVIR PHOSPHATE 30 MG CAPSULE PO SCH (08:16)
[2022-02-28] MEDS: ACETAMINOPHEN 325 MG TABLET PO PRN (08:16)
--- NOTE | 2022-02-28 08:26 | Internal Med Progress Note ---
SUBJECTIVE Subjective Patient information: Note initiated : 02/28/22 at 8:23 am Service Date, if different from initiated Date: [] Patient: Wendy Ellsworth a 67 y/o F admitted on 02/27/22 for n/v. Chief Complaint: [] Interval history: History of present illness: Ms. Ellsworth is a 67 year old F Presents the ED with confusion fever rhinorrhea agitation. Patient was recently diagnosed admitted in January with diverticulitis and possible small bowel obstruction versus ileus. She presented back to the ED 3 days after discharge and had still been on Augmentin and Flagy for nausea but all other symptoms improving. She was reevaluated and treated it in the ED and her antibiotics were switched to Cipro as she felt the antibiotics were the ones are causing her nausea. And he was also sent with Monica. Her has been ill with upper respiratory tract infection symptoms and then she developed symptoms yesterday of rhinorrhea a little bit of confusion and some agitation and little bit of nausea as well as sinus congestion with coughing. She is on room air. Today she seemed more confused and had fevers and was more agitated thus brought into the ED. She is also had poor oral intake and poor appetite. She is evaluated in the ED and found to have influenza A. She is found to be tachycardic and febrile and a temperature of 102 and tachycardic to 120. Blood pressure borderline low systolic in the 90s. She also has hypomagnesemia and was given magnesium in the ED. She was given some fluids in the ED with some subjective improvement. Pressure still low and still tachycardic. unable to take care of at home at this time. He has actually been looking at getting her into a care facility because of her higher level of need. She feels her diverticulitis has greatly improved. 5/3 Patient gets anxious quite easily but otherwise feeling a little better. Some nausea but no vomiting. No headache. Clarify home antibiotics that she was on diverticulitis that she still supposed to be taking. Clarify address her medication so we can start what is appropriate. Leukocytosis present. Tachycardic. Febrile at 100.5 this morning. Hypocalcemia we will replete. Metabolic acidosis Review of Systems: denies fever/chills/vomiting/chest or abdominal pain/cough/dyspnea. Otherwise see above. Constitutional Vitals: Vital Signs Temp Pulse Resp BP Pulse Ox 100.5 F H 120 H 26 H 143/110 94 02/28/22 07:00 02/28/22 07:00 02/28/22 07:00 02/28/22 07:00 02/28/22 07:00 Period Temp Pulse Resp BP Sys/[place] Pulse Ox Last 24 Hr 97.8 F-102.4 F 67-125 14-31 83-156/53-110 92-97 Intake and Output 02/27/22 02/28/22 02/28/22 21:59 05:59 13:59 Intake Total 748 601 6541 Output Total 200 Balance 280 753 7925 Weight 65.771 kg Intake & Output: Intake & Output 02/27/22 02/28/22 02/28/22 21:59 05:59 13:59 Intake Total 672 301 3283 Output Total 200 Balance 912 867 3142 Weight 65.771 kg Intake: IV 550 1000 Sodium Chloride 0.9% 1,000 ml @ 500 1000 84 mls/hr IV .[id number] [facility] Rx#: [id number] Oral 0 200 800 GI Tube Flush 100 IV - Manual Only 564 Output: Void Amount 200 Other: Stool Color Brown Stool Consistency Loose # Bowel Movements 1 Exam: General: Alert, Awake, No acute Distress Eyes/N/T: EOMI, Head/Neck: neck supple, CV: Tacky but regular, 2-3/6 SM, Pulm: Clear b/l, no wheezing/rhonchi/rales Abd: soft, nontender, +BS x4 Ext: no clubbing/cyanosis/edema Neuro: Alert, no focal deficits, moves all extremities, Skin: warm/dry OBJ DATA Labs CBC & Chem 7: 02/28/22 05:11 02/28/22 05:11 Labs: Abnormal Lab Results 02/28/22 02/28/22 02/27/22 05:11 05:11 16:02 WBC 14.6 H RBC 3.29 L Hgb 9.3 L Hct 30.8 L POC Hct MCHC 30.2 L RDW 15.9 H Neut % (Auto) Lymph % (Auto) Lymph # (Auto) Absolute Neutrophils Carbon Dioxide 16 L POC Total CO2 POC BUN BUN 33 H Creatinine 2.2 H POC Creatinine Uric Acid 9.2 H Calcium 6.0 L POC WB Ioniz Calcium Magnesium GGT 53 H Lactate Dehydrogenase 279 H Total Protein 5.6 L Albumin 2.8 L Lipase Procalcitonin Urine Appearance Hazy A Urine Protein 100 A Urine Mucus Few A 02/27/22 02/27/22 02/27/22 15:48 15:48 15:48 WBC 14.9 H RBC 3.26 L Hgb 9.4 L Hct 30.1 L POC Hct MCHC RDW 15.8 H Neut % (Auto) 87.8 H Lymph % (Auto) 6.4 L Lymph # (Auto) 0.95 L Absolute Neutrophils 13.10 H Carbon Dioxide POC Total CO2 POC BUN BUN Creatinine POC Creatinine Uric Acid Calcium POC WB Ioniz Calcium Magnesium 1.3 L GGT Lactate Dehydrogenase Total Protein Albumin Lipase 144 H Procalcitonin 0.28 H Urine Appearance Urine Protein Urine Mucus 02/27/22 15:43 WBC RBC Hgb Hct POC Hct 29.0 L MCHC RDW Neut % (Auto) Lymph % (Auto) Lymph # (Auto) Absolute Neutrophils Carbon Dioxide POC Total CO2 21.0 L POC BUN 35 H BUN Creatinine POC Creatinine 2.6 H Uric Acid Calcium POC WB Ioniz Calcium 0.76 L Magnesium GGT Lactate Dehydrogenase Total Protein Albumin Lipase Procalcitonin Urine Appearance Urine Protein Urine Mucus Meds: Medications Acetaminophen (Acetaminophen 325 Mg Tablet) 650 mg PO Q6HP PRN; Protocol PRN Reason: Per Pain Protocol/Fever > 101 Last Admin: 02/28/22 08:16 Dose: 650 mg Documented by: Albuterol/Ipratropium (Ipratropium/Albuterol 3 Ml Ampul.Neb) 3 ml NEB Q4HP PRN PRN Reason: Shortness Of Breath Potassium Chloride 40 meq/ (Dextrose) 520 mls @ 130 mls/hr IV UD PRN PRN Reason: Potassium < 3 Magnesium Sulfate (Magnesium Sulfate) 2 gm in 50 mls @ 50 mls/hr IV UD PRN PRN Reason: Magnesium </= 1.6 Sodium Chloride (Sodium Chloride 0.9%) 1,000 mls @ 84 mls/hr IV .[id number] [facility] Stop: 02/28/22 18:50 Last Admin: 02/28/22 08:16 Dose: 84 mls/hr Documented by: Ondansetron HCl (Ondansetron 4 Mg/2 Ml Vial) 4 mg IV Q4HP PRN PRN Reason: Nausea And Vomiting Last Admin: 02/28/22 03:54 Dose: 4 mg Documented by: Oseltamivir Phosphate (Oseltamivir Phosphate 30 Mg Capsule) 30 mg PO DAILY [facility] Last Admin: 02/28/22 08:16 Dose: 30 mg Documented by: Polyethylene Glycol (Polyethylene Glycol 3350 17 Gm Packet) 17 gm PO DAILYP PRN PRN Reason: Constipation Potassium Chloride (Potassium Chloride 20 Meq Tablet) 40 meq PO UD PRN PRN Reason: Potssium is 3-3.5 Potassium Chloride (Potassium Chloride 20 Meq Tablet) 40 meq PO UD PRN PRN Reason: Potassium < 3 Sodium Chloride (0.9 % Sodium Chloride 10 Ml Syringe) 10 ml IV Q8 [facility] Last Admin: 02/28/22 04:32 Dose: Not Given Documented by: A/P Narrative A/P Narrative: A: *Metabolic encephalopathy: 2/2 influenza A infection *Influenza A infection: *Sepsis: 2/2 above -Febrile/tachycardic/tachypneic/leukocytosis *Volume depletion: improved *Electrolyte d/or: Hypomagnesemia hypocalcemia *Renal transplant patient with CKD IV: follow with Dr. Fortune -On immunosuppressive therapy *Metabolic Acidosis: 2/2 above *Anemia,chronic: *Recent admit for b/l PE: on eliquis *CAD w/stent last Summer: on statin/plavix/bb *HTN: Low BP on admit *Hypothyroidism: *GERD: *MCI vs mild Dementia / Anxiety: On donepezil and seroquel *SLE: *h/o recurrent diverticulitis: finish abx course *Generalized weakness/deconditioning/Debility: Has increasing needs at home & looking to get her into care facility -poor functional status P: -renally dose tamilfu, 30mg daily -IVF d/c today, monitor BP and other vitals closely -neurochecks -replete electrolytes -monitor cbc/cmp -finish home Abx -cont renal transplant medications -Continue Eliquis/Plavix/statin/BB/ARB -hold torsemide for volume depletion -PO bicarb -PT/OT -CM for placement to SNF likely -ppx: Eliquis/home PPI DNR Time Spent With Patient Time: Total time spent is greater than 50% in coordination of care (as documented) at patient's floor/unit and/or counseling patient: Total time spent with greater than 50% in coordination of care (as documented) at patient's floor/unit and/or counseling patient:: 35 - 50 minutes QUALITY Stroke Symptom Onset Unknown: No VTE Deep Vein Thrombosis/Pulmonary Embolism Present on Admission: No
[2022-02-28] MEDS ORDERED: CALCIUM GLUCONATE 4.65 MEQ/10 ML VIAL IV ONE (08:29)
[2022-02-28] MEDS: OMEPRAZOLE 20 MG CAPSULE PO SCH (09:16)
[2022-02-28] MEDS: LOSARTAN 50 MG TABLET PO SCH (09:17)
[2022-02-28] MEDS: LEVOTHYROXINE 100 MCG TABLET PO SCH (09:17)
[2022-02-28] MEDS: CIPROFLOXACIN 500 MG TABLET PO SCH (09:17)
[2022-02-28] MEDS: MYCOPHENOLATE 250 MG CAPSULE PO SCH ×2 (09:17→20:10)
[2022-02-28] MEDS: predniSONE 5 MG TABLET PO SCH (09:17)
[2022-02-28] MEDS: ALLOPURINOL 100 MG TABLET PO SCH (09:18)
[2022-02-28] MEDS: metroNIDAZOLE 500 MG TABLET PO SCH ×3 (09:18→20:06)
[2022-02-28] MEDS: METOPROLOL SUCCINATE 25 MG TAB.XL.24H PO SCH ×2 (09:18→20:06)
[2022-02-28] MEDS: ATORVASTATIN 40 MG TABLET PO SCH (09:18)
[2022-02-28] MEDS: SODIUM BICARBONATE 650 MG TABLET PO SCH ×3 (09:18→20:06)
[2022-02-28] MEDS: APIXABAN 5 MG TABLET PO SCH ×2 (09:18→20:06)
[2022-02-28] MEDS: TACROLIMUS 1 MG CAPSULE PO SCH ×2 (09:18→20:06)
[2022-02-28 11:18] LABS: Anisocytosis 1+ (None Seen); Band Neutrophils % 1 % (0-10); Lymphocytes % 3 % (15-49); Monocytes % (Manual) 2 % (1-12); Platelet Estimate NORMAL (Normal); RBC Morphology ABNORMAL (Normal); Segmented Neutrophils % 94 % (38-78)
[2022-02-28] MEDS: CLOPIDOGREL 75 MG TABLET PO SCH (13:41)
[2022-02-28] MEDS: DONEPEZIL 10 MG TABLET PO SCH (20:06)
[2022-02-28] MEDS: QUEtiapine 100 MG TABLET PO SCH (20:06)
[2022-03-01] MEDS: 0.9 % SODIUM CHLORIDE 10 ML SYRINGE IV SCH ×3 (04:38→20:15)
[2022-03-01 07:19] LABS: Basophils # (Auto) 0.01 K/mcL (0.00-0.30); Basophils % (Auto) 0.2 % (0.0-2.0); Eosinophils # (Auto) 0.16 K/mcL (0.00-0.70); Eosinophils % (Auto) 2.7 % (0.0-7.0); Hematocrit 27.9 % (34.1-44.9); Hemoglobin 8.6 g/dL (11.2-15.7); Lymphocytes # (Auto) 0.48 K/mcL (1.50-4.80); Lymphocytes % (Auto) 8.2 % (15.5-49.0); Mean Cell Volume 92.4 fL (80.0-100.0); Mean Corpuscular HGB Conc 30.8 g/dL (31.0-36.0); Mean Platelet Volume 10.3 fL (7.4-10.4); Monocytes # (Auto) 0.76 K/mcL (0.10-0.90); Neutrophils % (Auto) 75.9 % (38.0-78.0); Platelet Count 216 K/mcL (140-440); RBC 3.02 M/mcL (3.59-5.38); Red Cell Distribution Width 15.8 % (11.5-14.5); WBC 5.8 K/mcL (4.5-11.0)
[2022-03-01] MEDS: predniSONE 5 MG TABLET PO SCH (07:27)
[2022-03-01] MEDS: LEVOTHYROXINE 100 MCG TABLET PO SCH (07:27)
[2022-03-01] MEDS: OMEPRAZOLE 20 MG CAPSULE PO SCH (07:27)
[2022-03-01 07:43] LABS: ALT/SGPT 17 U/L (<40); AST/SGOT 31 U/L (<32); Albumin 2.2 gm/dL (3.2-5.2); Albumin/Globulin Ratio 0.9 (1.0-2.3); Alkaline Phosphatase 57 U/L (39-117); Bilirubin,Direct < 0.2 mg/dL (0-0.3); Bilirubin,Total 0.3 mg/dL (0.1-1.0); Blood Urea Nitrogen 34 mg/dL (8-23); Carbon Dioxide 19 mmol/L (22-30); Chloride 102 mmol/L (96-108); Globulin 2.4 gm/dL (2.2-3.7); Glomerular Filtration Rate 21; Glucose 79 mg/dL (70-105); Lactate Dehydrogenase 215 U/L (135-225); Phosphorous 3.7 mg/dL (2.5-4.5); Triglycerides 73 mg/dL (<150)
--- NOTE | 2022-03-01 08:20 | Internal Med Progress Note ---
SUBJECTIVE Subjective Patient information: Note initiated : 03/01/22 at 8:18 am Service Date, if different from initiated Date: [] Patient: Wendy Ellsworth a 67 y/o F admitted on 02/27/22 for n/v. Chief Complaint: [] Interval history: History of present illness: Ms. Ellsworth is a 67 year old F Presents the ED with confusion fever rhinorrhea agitation. Patient was recently diagnosed admitted in January with diverticulitis and possible small bowel obstruction versus ileus. She presented back to the ED 3 days after discharge and had still been on Augmentin and Flagy for nausea but all other symptoms improving. She was reevaluated and treated it in the ED and her antibiotics were switched to Cipro as she felt the antibiotics were the ones are causing her nausea. And he was also sent with Monica. Her has been ill with upper respiratory tract infection symptoms and then she developed symptoms yesterday of rhinorrhea a little bit of confusion and some agitation and little bit of nausea as well as sinus congestion with coughing. She is on room air. Today she seemed more confused and had fevers and was more agitated thus brought into the ED. She is also had poor oral intake and poor appetite. She is evaluated in the ED and found to have influenza A. She is found to be tachycardic and febrile and a temperature of 102 and tachycardic to 120. Blood pressure borderline low systolic in the 90s. She also has hypomagnesemia and was given magnesium in the ED. She was given some fluids in the ED with some subjective improvement. Pressure still low and still tachycardic. unable to take care of at home at this time. He has actually been looking at getting her into a care facility because of her higher level of need. She feels her diverticulitis has greatly improved. 5/2 Patient gets anxious quite easily but otherwise feeling a little better. Some nausea but no vomiting. No headache. Clarify home antibiotics that she was on diverticulitis that she still supposed to be taking. Clarify address her medication so we can start what is appropriate. Leukocytosis present. Tachycardic. Febrile at 100.5 this morning. Hypocalcemia we will replete. Metabolic acidosis 5/3 Patient slept much better. Sitting up in chair. Feeling a little better. Patient states no diarrhea overnight although nurse recorded a liquid green middle the night. He has occasional coughing denies shortness of breath. Leukocytosis resolved today. Anemia present. Review of Systems: denies fever/chills/vomiting/chest or abdominal pain/dyspnea. Otherwise see above. Constitutional Vitals: Vital Signs Temp Pulse Resp BP Pulse Ox 97.5 F 78 20 127/74 98 03/01/22 08:00 03/01/22 08:00 03/01/22 08:00 03/01/22 08:00 03/01/22 08:00 Period Temp Pulse Resp BP Sys/Reynoso Pulse Ox Last 24 Hr 97.2 F-98.0 F 73-91 16-20 106-135/63-99 94-98 Intake and Output 02/28/22 03/01/22 03/01/22 21:59 05:59 13:59 Intake Total 1200 700 0 Balance 1200 700 0 Weight 67.676 kg Intake & Output: Intake & Output 02/28/22 03/01/22 03/01/22 21:59 05:59 13:59 Intake Total 1200 700 0 Balance 1200 700 0 Weight 67.676 kg Intake: IV 1000 0 Sodium Chloride 0.9% 1,000 ml @ 1000 0 Wide Open IV .Q0M ONE Rx#: [id number] Oral 200 700 Other: Meal Dinner Percent of Meal Consumed 100% Feeding Ability Assist with Tray Set Up Stool Size Moderate Stool Color Green Stool Consistency Liquid # of times incontinent of 1 Bowels # Emeses 0 Exam: General: Alert, Awake, No acute Distress Eyes/N/T: EOMI, Head/Neck: neck supple, CV: RRR, 2/6 SM, Pulm: Clear b/l, no wheezing/rhonchi/rales Abd: soft, nontender, +BS x4 Ext: no clubbing/cyanosis/edema Neuro: Alert, no focal deficits, moves all extremities, Skin: warm/dry OBJ DATA Labs CBC & Chem 7: 03/01/22 06:28 03/01/22 06:28 Labs: Abnormal Lab Results 03/01/22 03/01/22 02/28/22 06:28 06:28 05:11 WBC RBC 3.02 L Hgb 8.6 L Hct 27.9 L POC Hct MCHC 30.8 L RDW 15.8 H Neut % (Auto) Lymph % (Auto) 8.2 L [place] % (Auto) 13.0 H Lymph # (Auto) 0.48 L Seg Neutrophils % Lymphocytes % Absolute Neutrophils RBC Morphology Anisocytosis Carbon Dioxide 19 L 16 L POC Total CO2 POC BUN BUN 34 H 33 H Creatinine 2.3 H 2.2 H POC Creatinine Uric Acid 9.0 H 9.2 H Calcium 6.0 L 6.0 L POC WB Ioniz Calcium Magnesium GGT 40 H 53 H Lactate Dehydrogenase 279 H Total Protein 4.6 L 5.6 L Albumin 2.2 L 2.8 L Albumin/Globulin Ratio 0.9 L Lipase Procalcitonin Urine Appearance Urine Protein Urine Mucus 02/28/22 02/27/22 02/27/22 05:11 16:02 15:48 WBC 14.6 H RBC 3.29 L Hgb 9.3 L Hct 30.8 L POC Hct MCHC 30.2 L RDW 15.9 H Neut % (Auto) Lymph % (Auto) [place] % (Auto) Lymph # (Auto) Seg Neutrophils % 94 H Lymphocytes % 3 L Absolute Neutrophils RBC Morphology Abnormal A Anisocytosis 1+ A Carbon Dioxide POC Total CO2 POC BUN BUN Creatinine POC Creatinine Uric Acid Calcium POC WB Ioniz Calcium Magnesium GGT Lactate Dehydrogenase Total Protein Albumin Albumin/Globulin Ratio Lipase Procalcitonin 0.28 H Urine Appearance Hazy A Urine Protein 100 A Urine Mucus Few A 02/27/22 02/27/22 02/27/22 15:48 15:48 15:43 WBC 14.9 H RBC 3.26 L Hgb 9.4 L Hct 30.1 L POC Hct 29.0 L MCHC RDW 15.8 H Neut % (Auto) 87.8 H Lymph % (Auto) 6.4 L [place] % (Auto) Lymph # (Auto) 0.95 L Seg Neutrophils % Lymphocytes % Absolute Neutrophils 13.10 H RBC Morphology Anisocytosis Carbon Dioxide POC Total CO2 21.0 L POC BUN 35 H BUN Creatinine POC Creatinine 2.6 H Uric Acid Calcium POC WB Ioniz Calcium 0.76 L Magnesium 1.3 L GGT Lactate Dehydrogenase Total Protein Albumin Albumin/Globulin Ratio Lipase 144 H Procalcitonin Urine Appearance Urine Protein Urine Mucus Meds: Medications Acetaminophen (Acetaminophen 325 Mg Tablet) 650 mg PO Q6HP PRN; Protocol PRN Reason: Per Pain Protocol/Fever > 101 Last Admin: 02/28/22 08:16 Dose: 650 mg Documented by: Albuterol/Ipratropium (Ipratropium/Albuterol 3 Ml Ampul.Neb) 3 ml NEB Q4HP PRN PRN Reason: Shortness Of Breath Allopurinol (Allopurinol 100 Mg Tablet) 100 mg PO QDAY [facility] Last Admin: 02/28/22 09:18 Dose: 100 mg Documented by: Apixaban (Apixaban 5 Mg Tablet) 5 mg PO BID [facility] Last Admin: 02/28/22 20:06 Dose: 5 mg Documented by: Atorvastatin Calcium (Atorvastatin 40 Mg Tablet) 80 mg PO QDAY [facility] Last Admin: 02/28/22 09:18 Dose: 80 mg Documented by: Ciprofloxacin (Ciprofloxacin 500 Mg Tablet) 500 mg PO DAILY [facility]; Protocol Last Admin: 02/28/22 09:17 Dose: 500 mg Documented by: Clopidogrel Bisulfate (Clopidogrel 75 Mg Tablet) 75 mg PO QDAY [facility] Last Admin: 02/28/22 13:41 Dose: 75 mg Documented by: Donepezil HCl (Donepezil 10 Mg Tablet) 10 mg PO HS [facility] Last Admin: 02/28/22 20:06 Dose: 10 mg Documented by: Potassium Chloride 40 meq/ (Dextrose) 520 mls @ 130 mls/hr IV UD PRN PRN Reason: Potassium < 3 Magnesium Sulfate (Magnesium Sulfate) 2 gm in 50 mls @ 50 mls/hr IV UD PRN PRN Reason: Magnesium </= 1.6 Levothyroxine Sodium ([facility] 100 Mcg Tablet) [facility] Last Admin: 03/01/22 07:27 Dose: 100 mcg Documented by: Losartan Potassium (Losartan 50 Mg Tablet) 50 mg PO QDAY [facility] Last Admin: 02/28/22 09:17 Dose: 50 mg Documented by: Metoprolol Succinate (Metoprolol Succinate 25 Mg Tab.Xl.24h) 25 mg PO BID [facility] Last Admin: 02/28/22 20:06 Dose: 25 mg Documented by: Metronidazole (Metronidazole 500 Mg Tablet) 500 mg PO TID [facility]; Protocol Last Admin: 02/28/22 20:06 Dose: 500 mg Documented by: Mycophenolate Mofetil (Mycophenolate 250 Mg Capsule) 750 mg PO BID [facility] Last Admin: 02/28/22 20:10 Dose: 750 mg Documented by: Omeprazole (Omep[facility]ole 20 Mg Capsule) [facility] Last Admin: 03/01/22 07:27 Dose: 20 mg Documented by: Ondansetron HCl (Ondansetron 4 Mg/2 Ml Vial) 4 mg IV Q4HP PRN PRN Reason: Nausea And Vomiting Last Admin: 02/28/22 23:57 Dose: 4 mg Documented by: Oseltamivir Phosphate (Oseltamivir Phosphate 30 Mg Capsule) 30 mg PO DAILY [facility] Last Admin: 02/28/22 08:16 Dose: 30 mg Documented by: Polyethylene Glycol (Polyethylene Glycol 3350 17 Gm Packet) 17 gm PO DAILYP PRN PRN Reason: Constipation Potassium Chloride (Potassium Chloride 20 Meq Tablet) 40 meq PO UD PRN PRN Reason: Potssium is 3-3.5 Potassium Chloride (Potassium Chloride 20 Meq Tablet) 40 meq PO UD PRN PRN Reason: Potassium < 3 Prednisone (Prednisone 5 Mg Tablet) 5 mg PO QAC [facility] Last Admin: 03/01/22 07:27 Dose: 5 mg Documented by: Quetiapine Fumarate (Quetiapine 100 Mg Tablet) 100 mg PO HS [facility] Last Admin: 02/28/22 20:06 Dose: 100 mg Documented by: Sodium Chloride (0.9 % Sodium Chloride 10 Ml Syringe) 10 ml IV Q8 [facility] Last Admin: 03/01/22 04:38 Dose: 10 ml Documented by: Tacrolimus (Tacrolimus 1 Mg Capsule) 3 mg PO BID [facility] Last Admin: 02/28/22 20:06 Dose: 3 mg Documented by: A/P Narrative A/P Narrative: A: *Metabolic encephalopathy: 2/2 influenza A infection *Influenza A infection: *Sepsis: 2/2 above, improving -Febrile(now afebrile)/tachycardic(imp roving)/tachypneic/leukocytosis(resolved) *Volume depletion: improved *Electrolyte d/o: Hypomagnesemia, hypocalcemia *Renal transplant patient w/CKD IV: follow with Dr. Fortune -On immunosuppressive therapy *Metabolic Acidosis: 2/2 above *Anemia,chronic: *Recent admit for b/l PE: on eliquis *CAD w/stent last Summer: on statin/plavix/bb *HTN: Low BP on admit *Hypothyroidism: *GERD: *MCI vs mild Dementia / Anxiety: On donepezil and seroquel *SLE: *h/o recurrent diverticulitis: finish abx course *Diarrhea on admit: check c. diff *Generalized weakness/deconditioning/Debility: Has increasing needs at home & looking to get her into care facility -poor functional status P: -renally dose tamilfu, 30mg daily -s/p IVF -replete electrolytes -monitor cbc/cmp -finish home Abx -cont renal transplant medications -Continue Eliquis/Plavix/statin/BB/ARB -hold torsemide for volume depletion -PO bicarb -PT/OT -CM for placement to SNF likely -ppx: Eliquis/home PPI DNR Time Spent With Patient Time: Total time spent is greater than 50% in coordination of care (as documented) at patient's floor/unit and/or counseling patient: Total time spent with greater than 50% in coordination of care (as documented) at patient's floor/unit and/or counseling patient:: 25 - 35 minutes QUALITY Stroke Symptom Onset Unknown: No VTE Deep Vein Thrombosis/Pulmonary Embolism Present on Admission: No
[2022-03-01] MEDS ORDERED: CALCIUM GLUCONATE 4.65 MEQ/10 ML VIAL IV ONE ×2 (08:25→19:08)
[2022-03-01] MEDS ORDERED: CALCIUM GLUCONATE 9.3 MEQ in DEXTROSE 5% IN WATER 100 ML IV ONE (09:00)
[2022-03-01] MEDS: MYCOPHENOLATE 250 MG CAPSULE PO SCH ×2 (09:21→21:59)
[2022-03-01] MEDS: ATORVASTATIN 40 MG TABLET PO SCH (09:22)
[2022-03-01] MEDS: LOSARTAN 50 MG TABLET PO SCH (09:22)
[2022-03-01] MEDS: CIPROFLOXACIN 500 MG TABLET PO SCH (09:22)
[2022-03-01] MEDS: APIXABAN 5 MG TABLET PO SCH ×2 (09:22→21:59)
[2022-03-01] MEDS: CLOPIDOGREL 75 MG TABLET PO SCH (09:22)
[2022-03-01] MEDS: metroNIDAZOLE 500 MG TABLET PO SCH ×3 (09:22→21:58)
[2022-03-01] MEDS: OSELTAMIVIR PHOSPHATE 30 MG CAPSULE PO SCH (09:23)
[2022-03-01] MEDS: METOPROLOL SUCCINATE 25 MG TAB.XL.24H PO SCH ×2 (09:23→21:58)
[2022-03-01] MEDS: TACROLIMUS 1 MG CAPSULE PO SCH ×2 (09:23→22:06)
[2022-03-01] MEDS: SODIUM BICARBONATE 650 MG TABLET PO SCH ×3 (09:23→21:59)
[2022-03-01] MEDS: ALLOPURINOL 100 MG TABLET PO SCH (09:23)
--- NOTE | 2022-03-01 10:44 | Discharge Summary ---
Discharge Provider Provider Patient information: Note initiated : 03/01/22 at 10:43 am Service Date, if different from initiated Date: [] Patient: Wendy Ellsworth 67 y/o F admitted on 02/27/22 for n/v. Chief Complaint: [] Date of admission: 02/27/22 18:47 Discharge date: 03/02/22 Primary care physician: Turner Devine Consults: 02/27/22 Consult to Physician [CONS] Stat Comment: Consulting Provider: Nemesio Villanueva Reason For Exam: Physician to Consult Discharge Meds Discharge Medications Home Medications omeprazole 20 mg capsule,delayed release 20 mg PO DAILY 08/11/15 [History Confirmed 02/27/22 Last Taken 05/15/21] tacrolimus 1 mg capsule, immediate-release (Prograf) 3 mg PO BID cap 02/05/16 [History Confirmed 02/27/22 Last Taken 05/15/21] prednisone 5 mg tablet 5 mg PO QDAY 06/07/17 [History Confirmed 02/27/22 Last Taken 05/15/21] donepezil 10 mg tablet 10 mg PO HS 04/22/19 [History Confirmed 02/27/22 Last Taken 05/15/21] mycophenolate mofetil 250 mg capsule 750 mg PO BID 05/15/21 [History Confirmed 02/27/22 Last Taken 05/15/21] torsemide 20 mg PO DAILY 05/15/21 [History Confirmed 02/27/22 Last Taken 05/15/21] cholecalciferol (vitamin D3) 125 mcg (5,000 unit) capsule 125 mcg PO QDAY 01/22/22 [History Confirmed 02/27/22 Last Taken 02/25/22] clopidogrel 75 mg tablet 1 tab PO QDAY 01/22/22 [History Confirmed 02/27/22 Last Taken Unknown] denosumab 60 mg/mL subcutaneous syringe (Prolia) 60 mg SUBCUT Q3M 01/22/22 [History Confirmed 02/27/22 Last Taken Unknown] levothyroxine 100 mcg tablet 1 tab PO QDAY 01/22/22 [History Confirmed 02/27/22 Last Taken Unknown] metoprolol succinate 25 mg tablet,extended release 24 hr 25 mg PO BID 01/22/22 [History Confirmed 02/27/22 Last Taken Unknown] quetiapine 50 mg tablet 100 mg PO HS 01/22/22 [History Confirmed 02/27/22 Last Taken 02/25/22] magnesium oxide 480 mg PO QDAY 01/23/22 [History Confirmed 02/27/22 Last Taken Unknown] apixaban 5 mg tablet (Eliquis) 5 mg PO BID #60 tab 02/16/22 [Rx Confirmed 02/27/22 Last Taken Unknown] Centrum Silver Women 1 tab PO DAILY 02/19/22 [History Confirmed 02/27/22 Last Taken 02/25/22] allopurinol 100 mg tablet 1 tab PO QDAY 02/19/22 [History Confirmed 02/27/22 Last Taken 02/25/22] atorvastatin 80 mg tablet 1 tab PO QDAY 02/19/22 [History Confirmed 02/27/22 Last Taken Unknown] metronidazole 500 mg tablet 500 mg PO TID #40 tab 02/23/22 [Rx Confirmed 02/27/22 Last Taken Unknown] ondansetron 4 mg disintegrating tablet 4 mg PO Q8H PRN #9 tab 02/26/22 [Rx Confirmed 02/27/22 Last Taken Unknown] atorvastatin 80 mg tablet (Lipitor) 80 mg PO QDAY 02/27/22 [History Confirmed 02/27/22 Last Taken Unknown] losartan 50 mg tablet 50 mg PO QDAY 02/27/22 [History Confirmed 02/27/22 Last Taken Unknown] oseltamivir 30 mg capsule 30 mg PO DAILY #1 cap 03/01/22 [Rx Last Taken Unknown] COURSE Hospital Course Hospital course: Interval history: History of present illness: Ms. Ellsworth is a 67 year old F Presents the ED with confusion fever rhinorrhea agitation. Patient was recently diagnosed admitted in January with diverticulitis and possible small bowel obstruction versus ileus. She presented back to the ED 3 days after discharge and had still been on Augmentin and Flagy for nausea but all other symptoms improving. She was reevaluated and treated it in the ED and her antibiotics were switched to Cipro as she felt the antibiotics were the ones are causing her nausea. And he was also sent with Monica. Her has been ill with upper respiratory tract infection symptoms and then she developed symptoms yesterday of rhinorrhea a little bit of confusion and some agitation and little bit of nausea as well as sinus congestion with coughing. She is on room air. Today she seemed more confused and had fevers and was more agitated thus brought into the ED. She is also had poor oral intake and poor appetite. She is evaluated in the ED and found to have influenza A. She is found to be tachycardic and febrile and a temperature of 102 and tachycardic to 120. Blood pressure borderline low systolic in the 90s. She also has hypomagnesemia and was given magnesium in the ED. She was given some fluids in the ED with some subjective improvement. Pressure still low and still tachycardic. unable to take care of at home at this time. He has actually been looking at getting her into a care facility because of her higher level of need. She feels her diverticulitis has greatly improved. 02/28 Patient gets anxious quite easily but otherwise feeling a little better. Some nausea but no vomiting. No headache. Clarify home antibiotics that she was on diverticulitis that she still supposed to be taking. Clarify address her medication so we can start what is appropriate. Leukocytosis present. Tachycardic. Febrile at 100.5 this morning. Hypocalcemia we will replete. Metabolic acidosis 03/01 Patient slept much better. Sitting up in chair. Feeling a little better. Patient states no diarrhea overnight although nurse recorded a liquid green middle the night. He has occasional coughing denies shortness of breath. Leukocytosis resolved today. Anemia present. 03/02 Doing well. No overnight event or new complaints. Awaiting placement. A: *Metabolic encephalopathy: 2/2 influenza A infection *Influenza A infection: *Sepsis: 2/2 above, improving *Volume depletion: improved *Electrolyte d/o: Hypomagnesemia, hypocalcemia *Renal transplant patientw/CKD IV: follow with Dr. Fortune -On immunosuppressive therapy *Metabolic Acidosis: 2/2 above *Anemia,chronic: *Recent admit for b/l PE: on eliquis *CAD w/stent last Summer: on statin/plavix/bb *HTN: Low BP on admit *Hypothyroidism: *GERD: *MCI vs mild Dementia / Anxiety: On donepezil and seroquel *SLE: *h/o recurrent diverticulitis: finish abx course *Generalized weakness/deconditioning/Debility: Has increasing needs at home & looking to get her into care facility -poor functional status P: -renally dose tamilfu, 30mg daily -finish home Abx -CM for placement to SNF likely Discharge diagnosis: Influenza A metabolic encephalopathy sepsis volume depletion electrolyte di Secondary discharge diagnosis: Electrolyte disorder renal transplant patient on immunosuppressive presents chronic kidney disease stage IV metabolic acidosis anemia recent PE CAD hypertension hypothyroidism GERD mild cog impairment/mild dementia Lupus recurrent diverticulitis generalized weakness deconditioning debility Time Spent with Patient Time attestation: Total time spent providing and/or coordinating discharge services: Time spent: Greater than 30 minutes EXAM Constitutional Vitals: Temp Pulse Resp BP Pulse Ox 97.5 F 78 20 127/74 98 03/01/22 08:00 03/01/22 08:00 03/01/22 08:00 03/01/22 08:00 03/01/22 08:00 Discharge Data Data Completed and Pending Labs on day of discharge: Labs from last 24 hours 03/01/22 03/01/22 02/28/22 06:28 06:28 05:11 WBC 5.8 RBC 3.02 L Hgb 8.6 L Hct 27.9 L MCV 92.4 MCH 28.5 MCHC 30.8 L RDW 15.8 H Plt Count 216 MPV 10.3 Neut % (Auto) 75.9 Lymph % (Auto) 8.2 L [place] % (Auto) 13.0 H Eos % (Auto) 2.7 Baso % (Auto) 0.2 Lymph # (Auto) 0.48 L [place] # (Auto) 0.76 Eos # (Auto) 0.16 Baso # (Auto) 0.01 Seg Neutrophils % 94 H Band Neutrophils % 1 Lymphocytes % 3 L Monocytes % (Manual) 2 Absolute Neutrophils 4.43 Platelet Estimate Normal RBC Morphology Abnormal A Anisocytosis 1+ A Sodium 134 Potassium 4.0 Chloride 102 Carbon Dioxide 19 L Anion Gap 13.0 BUN 34 H Creatinine 2.3 H GFR Calculation 21 Glucose 79 Uric Acid 9.0 H Calcium 6.0 L Phosphorus 3.7 Magnesium 1.9 Total Bilirubin 0.3 Direct Bilirubin < 0.2 GGT 40 H AST 31 ALT 17 Alkaline Phosphatase 57 Lactate Dehydrogenase 215 Total Protein 4.6 L Albumin 2.2 L Globulin 2.4 Albumin/Globulin Ratio 0.9 L Triglycerides 73 Preliminary micro results at discharge 02/27/22 16:00 Blood Culture - Preliminary Blood 02/27/22 15:48 Blood Culture - Preliminary Blood Discharge Plan Patient/Caregiver Discharge Instructions Activity: increase activity as tolerated Diet: Cardiac Prescriptions: New oseltamivir 30 mg Capsule 30 mg PO DAILY Qty: 1 0RF Rx Instructions: Last dose on 03/03. Continued tacrolimus [Prograf] 1 mg capsule 3 mg PO BID 0RF prednisone 5 mg tablet 5 mg PO QDAY 0RF omeprazole 20 MG capsule 20 mg PO DAILY 0RF Rx Instructions: 30 mins. before morning meal donepezil 10 MG tablet 10 mg PO HS 0RF torsemide 20 mg PO DAILY 0RF mycophenolate mofetil 250 mg Capsule 750 mg PO BID 0RF clopidogrel 75 mg tablet 1 tab PO QDAY 0RF levothyroxine 100 mcg tablet 1 tab PO QDAY 0RF metoprolol succinate 25 mg tablet extended release 24 hr 25 mg PO BID 0RF Rx Instructions: 3 tabs BID cholecalciferol (vitamin D3) 125 mcg (5,000 unit) Capsule 125 mcg PO QDAY 0RF quetiapine 50 mg tablet 100 mg PO HS 0RF Prolia 60 mg/mL syringe 60 mg subcut Q3M 0RF Label Comments: Recently had this magnesium oxide 400 mg magnesium Tablet 480 mg PO QDAY 0RF Eliquis 5 mg tablet 5 mg PO BID Qty: 60 0RF atorvastatin 80 mg tablet 1 tab PO QDAY 0RF allopurinol 100 mg tablet 1 tab PO QDAY 0RF Centrum Silver Women 1 tab PO DAILY 0RF metronidazole 500 mg tablet 500 mg PO TID Qty: 40 0RF ondansetron 4 mg tablet,disintegrating 4 mg PO Q8H PRN (Reason: nausea and vomiting) Qty: 9 0RF losartan 50 mg Tablet 50 mg PO QDAY 0RF atorvastatin [Lipitor] 80 mg Tablet 80 mg PO QDAY 0RF Follow Up Plan Follow up with: Turner Devine MD [Primary Care Provider] - Patient Disposition: Xfer SNF Prognosis: Fair Rehab Potential: Fair I certify that the patient requires SNF services: Yes Overall status at discharge: patient is progressing back to baseline Discharge Orders: Discharge Order (Routine); Ordered 03/02/22 Ordered By: Nemesio Villanueva [facility] VTE Deep Vein Thrombosis/Pulmonary Embolism Present on Admission: No
[2022-03-01 17:36] LABS: Blood Urea Nitrogen 37 mg/dL (8-23); Calcium 6.6 mg/dL (8.6-10.4); Carbon Dioxide 19 mmol/L (22-30); Chloride 99 mmol/L (96-108); Glomerular Filtration Rate 20; Glucose 146 mg/dL (70-105)
[2022-03-01] MEDS ORDERED: CALCIUM GLUCONATE 4.65 MEQ/10 ML VIAL ONE (20:00)
[2022-03-01] MEDS: QUEtiapine 100 MG TABLET PO SCH (21:58)
[2022-03-01] MEDS: DONEPEZIL 10 MG TABLET PO SCH (21:58)
[2022-03-02] MEDS: ACETAMINOPHEN 325 MG TABLET PO PRN ×3 (00:25→19:13)
[2022-03-02] MEDS: 0.9 % SODIUM CHLORIDE 10 ML SYRINGE IV SCH ×4 (06:35→22:00)
[2022-03-02 07:10] LABS: Blood Urea Nitrogen 38 mg/dL (8-23); Calcium 6.9 mg/dL (8.6-10.4); Carbon Dioxide 19 mmol/L (22-30); Chloride 101 mmol/L (96-108); Glomerular Filtration Rate 20; Glucose 102 mg/dL (70-105)
[2022-03-02] MEDS ORDERED: CALCIUM GLUCONATE 4.65 MEQ/10 ML VIAL IV ONE (08:33)
[2022-03-02] MEDS ORDERED: POTASSIUM CHLORIDE 20 MEQ TABLET PO ONE (08:34)
[2022-03-02] MEDS ORDERED: CALCIUM GLUCONATE 9.3 MEQ in DEXTROSE 5% IN WATER 100 ML IV ONE (10:00)
[2022-03-02] MEDS: ATORVASTATIN 40 MG TABLET PO SCH (11:14)
[2022-03-02] MEDS: OMEPRAZOLE 20 MG CAPSULE PO SCH (11:15)
[2022-03-02] MEDS: MYCOPHENOLATE 250 MG CAPSULE PO SCH ×2 (11:15→20:59)
[2022-03-02] MEDS: LOSARTAN 50 MG TABLET PO SCH (11:15)
[2022-03-02] MEDS: LEVOTHYROXINE 100 MCG TABLET PO SCH (11:15)
[2022-03-02] MEDS: CLOPIDOGREL 75 MG TABLET PO SCH (11:15)
[2022-03-02] MEDS: predniSONE 5 MG TABLET PO SCH (11:16)
[2022-03-02] MEDS: METOPROLOL SUCCINATE 25 MG TAB.XL.24H PO SCH ×2 (11:16→21:00)
[2022-03-02] MEDS: CIPROFLOXACIN 500 MG TABLET PO SCH (11:16)
[2022-03-02] MEDS: APIXABAN 5 MG TABLET PO SCH ×2 (11:17→21:00)
[2022-03-02] MEDS: OSELTAMIVIR PHOSPHATE 30 MG CAPSULE PO SCH (11:17)
[2022-03-02] MEDS: ALLOPURINOL 100 MG TABLET PO SCH (11:17)
[2022-03-02] MEDS: metroNIDAZOLE 500 MG TABLET PO SCH ×3 (11:21→20:59)
[2022-03-02] MEDS: TACROLIMUS 1 MG CAPSULE PO SCH ×2 (12:51→20:58)
[2022-03-02] MEDS: QUEtiapine 100 MG TABLET PO SCH (21:00)
[2022-03-02] MEDS: DONEPEZIL 10 MG TABLET PO SCH (21:00)
[2022-03-03] MEDS: OMEPRAZOLE 20 MG CAPSULE PO SCH (07:16)
[2022-03-03] MEDS: LEVOTHYROXINE 100 MCG TABLET PO SCH (07:16)
[2022-03-03] MEDS: LOSARTAN 50 MG TABLET PO SCH (08:08)
[2022-03-03] MEDS: CLOPIDOGREL 75 MG TABLET PO SCH (08:08)
[2022-03-03] MEDS: ALLOPURINOL 100 MG TABLET PO SCH (08:08)
[2022-03-03] MEDS: ATORVASTATIN 40 MG TABLET PO SCH (08:08)
[2022-03-03] MEDS: APIXABAN 5 MG TABLET PO SCH (08:09)
[2022-03-03] MEDS: OSELTAMIVIR PHOSPHATE 30 MG CAPSULE PO SCH (08:09)
[2022-03-03] MEDS: CIPROFLOXACIN 500 MG TABLET PO SCH (08:09)
[2022-03-03] MEDS: predniSONE 5 MG TABLET PO SCH (08:09)
[2022-03-03] MEDS: metroNIDAZOLE 500 MG TABLET PO SCH (08:09)
[2022-03-03] MEDS: METOPROLOL SUCCINATE 25 MG TAB.XL.24H PO SCH (08:09)
[2022-03-03] MEDS: MYCOPHENOLATE 250 MG CAPSULE PO SCH (08:09)
[2022-03-03] MEDS: TACROLIMUS 1 MG CAPSULE PO SCH (08:19)
[2022-03-03] MEDS: 0.9 % SODIUM CHLORIDE 10 ML SYRINGE IV SCH (08:21)
--- NOTE | 2022-03-03 10:43 | Discharge Summary ---
Discharge Provider Provider Patient information: Note initiated : 03/03/22 at 10:41 am Service Date, if different from initiated Date: [] Patient: Wendy Ellsworth 67 y/o F admitted on 02/27/22 for n/v. Chief Complaint: [] Date of admission: 02/27/22 18:47 Discharge date: 03/03/22 Primary care physician: Turner Devine Consults: 02/27/22 Consult to Physician [CONS] Stat Comment: Consulting Provider: Nemesio Villanueva Reason For Exam: Physician to Consult Discharge Meds Discharge Medications Home Medications omeprazole 20 mg capsule,delayed release 20 mg PO DAILY 08/11/15 [History Confirmed 02/27/22 Last Taken 05/15/21] tacrolimus 1 mg capsule, immediate-release (Prograf) 3 mg PO BID cap 02/05/16 [History Confirmed 02/27/22 Last Taken 05/15/21] prednisone 5 mg tablet 5 mg PO QDAY 06/07/17 [History Confirmed 02/27/22 Last Taken 05/15/21] donepezil 10 mg tablet 10 mg PO HS 04/22/19 [History Confirmed 02/27/22 Last Taken 05/15/21] mycophenolate mofetil 250 mg capsule 750 mg PO BID 05/15/21 [History Confirmed 02/27/22 Last Taken 05/15/21] torsemide 20 mg PO DAILY 05/15/21 [History Confirmed 02/27/22 Last Taken 05/15/21] cholecalciferol (vitamin D3) 125 mcg (5,000 unit) capsule 125 mcg PO QDAY 01/22/22 [History Confirmed 02/27/22 Last Taken 02/25/22] clopidogrel 75 mg tablet 1 tab PO QDAY 01/22/22 [History Confirmed 02/27/22 Last Taken Unknown] denosumab 60 mg/mL subcutaneous syringe (Prolia) 60 mg SUBCUT Q3M 01/22/22 [History Confirmed 02/27/22 Last Taken Unknown] levothyroxine 100 mcg tablet 1 tab PO QDAY 01/22/22 [History Confirmed 02/27/22 Last Taken Unknown] metoprolol succinate 25 mg tablet,extended release 24 hr 25 mg PO BID 01/22/22 [History Confirmed 02/27/22 Last Taken Unknown] quetiapine 50 mg tablet 100 mg PO HS 01/22/22 [History Confirmed 02/27/22 Last Taken 02/25/22] magnesium oxide 480 mg PO QDAY 01/23/22 [History Confirmed 02/27/22 Last Taken Unknown] apixaban 5 mg tablet (Eliquis) 5 mg PO BID #60 tab 02/16/22 [Rx Confirmed 02/27/22 Last Taken Unknown] Centrum Silver Women 1 tab PO DAILY 02/19/22 [History Confirmed 02/27/22 Last Taken 02/25/22] allopurinol 100 mg tablet 1 tab PO QDAY 02/19/22 [History Confirmed 02/27/22 Last Taken 02/25/22] atorvastatin 80 mg tablet 1 tab PO QDAY 02/19/22 [History Confirmed 02/27/22 Last Taken Unknown] ondansetron 4 mg disintegrating tablet 4 mg PO Q8H PRN #9 tab 02/26/22 [Rx Confirmed 02/27/22 Last Taken Unknown] atorvastatin 80 mg tablet (Lipitor) 80 mg PO QDAY 02/27/22 [History Confirmed 02/27/22 Last Taken Unknown] losartan 50 mg tablet 50 mg PO QDAY 02/27/22 [History Confirmed 02/27/22 Last Taken Unknown] oseltamivir 30 mg capsule 30 mg PO DAILY #1 cap 03/01/22 [Rx Last Taken Unknown] COURSE Hospital Course Hospital course: Ms. Ellsworth is a 67 year old female who presented to the ED with confusion fever rhinorrhea agitation. Patient was recently diagnosed admitted in January with diverticulitis and possible small bowel obstruction versus ileus. She presented back to the ED 3 days after discharge and had still been on Augmentin and Flagy for nausea but all other symptoms improving. She was reevaluated and treated it in the ED and her antibiotics were switched to Cipro as she felt the antibiotics were the ones are causing her nausea. And he was also sent with [facility]. Her has been ill with upper respiratory tract infection symptoms and then she developed symptoms yesterday of rhinorrhea a little bit of confusion and some agitation and little bit of nausea as well as sinus congestion with coughing. She is on room air. Today she seemed more confused and had fevers and was more agitated thus brought into the ED. She is also had poor oral intake and poor appetite. She is evaluated in the ED and found to have influenza A. She is found to be tachycardic and febrile and a temperature of 102 and tachycardic to 120. Blood pressure borderline low systolic in the 90s. She also has hypomagnesemia and was given magnesium in the ED. She was given some fluids in the ED with some subjective improvement. Pressure still low and still tachycardic. unable to take care of at home at this time. He has actually been looking at getting her into a care facility because of her higher level of need. She feels her diverticulitis has greatly improved. 02/28 Patient gets anxious quite easily but otherwise feeling a little better. Some nausea but no vomiting. No headache. Clarify home antibiotics that she was on diverticulitis that she still supposed to be taking. Clarify address her medication so we can start what is appropriate. Leukocytosis present. Tachycardic. Febrile at 100.5 this morning. Hypocalcemia we will replete. Metabolic acidosis 03/01 Patient slept much better. Sitting up in chair. Feeling a little better. Patient states no diarrhea overnight although nurse recorded a liquid green middle the night. He has occasional coughing denies shortness of breath. Leukocytosis resolved today. Anemia present. 03/02 Doing well. No overnight event or new complaints. Awaiting placement. 03/03 Discharged to rehab at a long term facility. Complete 5 days of oseltamivir for influenza A. Follow-up with PCP and nephrology after discharge. Physical exam Head: Atraumatic, normal inspection. Eyes: normal appearance, no scleral icterus. Neck: full ROM Respiratory: no respiratory distress. Cardiovascular: normal rate and rhythm, S1, S2. GI/Abdominal: soft, nontender, no guarding. Extremities: full range of motion, nontender. Neurological: CN II-XII intact, intact motor, intact sensation. Psychiatric: normal mood. Skin: warm, normal color Discharge diagnosis: Metabolic encephalopathy secondary to influenza A infection Time Spent with Patient Time attestation: Total time spent providing and/or coordinating discharge services: EXAM Constitutional Vitals: Temp Pulse Resp BP Pulse Ox 97.6 F 80 20 136/88 94 03/03/22 04:45 03/02/22 16:00 03/03/22 04:45 03/03/22 04:45 03/03/22 04:45 Discharge Data Data Completed and Pending Labs on day of discharge: Preliminary micro results at discharge 02/27/22 16:00 Blood Culture - Preliminary Blood 02/27/22 15:48 Blood Culture - Preliminary Blood Discharge Plan Patient/Caregiver Discharge Instructions Activity: increase activity as tolerated Diet: Cardiac Instructions: Influenza (DC), Sepsis (GEN) Activity Restrictions/Additional Instructions: Increase activity as tolerated. Cardiac diet as tolerated. Call your physician for sustained fever greater than 100.5, worsening symptoms, or any questions/concerns. This discharge packet is provided to you to help keep you informed about your care. We want to ensure you get everything you need when you go home. You will also be receiving a call from us in a few days to follow up with you and see how you are doing since your discharge. This gives us a chance to listen to any concerns you maybe experiencing since you were discharged or any additional needs you may have, as well as providing us feedback on your care experience. We strive to always provide excellent care and thank you for your feedback and for choosing [facility]. Prescriptions: New oseltamivir 30 mg Capsule 30 mg PO DAILY Qty: 1 0RF Rx Instructions: Last dose on 03/03. Continued tacrolimus [Prograf] 1 mg capsule 3 mg PO BID 0RF prednisone 5 mg tablet 5 mg PO QDAY 0RF omeprazole 20 MG capsule 20 mg PO DAILY 0RF Rx Instructions: 30 mins. before morning meal donepezil 10 MG tablet 10 mg PO HS 0RF torsemide 20 mg PO DAILY 0RF mycophenolate mofetil 250 mg Capsule 750 mg PO BID 0RF clopidogrel 75 mg tablet 1 tab PO QDAY 0RF levothyroxine 100 mcg tablet 1 tab PO QDAY 0RF metoprolol succinate 25 mg tablet extended release 24 hr 25 mg PO BID 0RF Rx Instructions: 3 tabs BID cholecalciferol (vitamin D3) 125 mcg (5,000 unit) Capsule 125 mcg PO QDAY 0RF quetiapine 50 mg tablet 100 mg PO HS 0RF Prolia 60 mg/mL syringe 60 mg subcut Q3M 0RF Label Comments: Recently had this magnesium oxide 400 mg magnesium Tablet 480 mg PO QDAY 0RF Eliquis 5 mg tablet 5 mg PO BID Qty: 60 0RF atorvastatin 80 mg tablet 1 tab PO QDAY 0RF allopurinol 100 mg tablet 1 tab PO QDAY 0RF Centrum Silver Women 1 tab PO DAILY 0RF ondansetron 4 mg tablet,disintegrating 4 mg PO Q8H PRN (Reason: nausea and vomiting) Qty: 9 0RF losartan 50 mg Tablet 50 mg PO QDAY 0RF atorvastatin [Lipitor] 80 mg Tablet 80 mg PO QDAY 0RF Discontinued metronidazole 500 mg tablet 500 mg PO TID Qty: 40 0RF Other Ambulatory Orders: OT Discharge Order (Routine) Location: None Selected Ordered By: Nemesio Vilalnueva Physical Therapy at Discharge - General (Routine) Location: None Selected Ordered By: Nemesio Villanueva Follow Up Plan Follow up with: Turner Devine MD [Primary Care Provider] - (Please call and schedule a hospital follow up appointment.) Saji Fortune MD [Physician] - Patient Disposition: Xfer SNF Prognosis: Fair Rehab Potential: Serious I certify that the patient requires SNF services: Yes Overall status at discharge: patient is progressing back to baseline Discharge Orders: Discharge Order (Routine); Ordered 03/02/22 Ordered By: Nemesio Villanueva QUALITY VTE Deep Vein Thrombosis/Pulmonary Embolism Present on Admission: No
== END 2022-03-03 11:35 | DRG 871 ==
LOC: ED 15:34 → MEDSUR 18:47
PROVIDERS: ADMIT Internal Medicine; ATTEND Internal Medicine

== ENCOUNTER 2022-03-20 04:03 | Inpatient (IN) ==
--- NOTE | 2022-03-20 04:05 | Emergency Department Note ---
HPI General Chief complaint: Weakness Stated complaint: Weight Gain/Weakness Time Seen by Provider: 03/20/22 04:05 Source: patient and family () Mode of arrival: ambulatory Limitations: no limitations History of Present Illness HPI Narrative: Narrative: 67-year-old female presents the emergency room brought in by her because of weakness. He states that she was unable to get off the toilet alone. Stated she had an episode of incontinence. He also states that she seems more confused than her usual. Her speech was less clear than usual. She appears to be heavier than her usual he said. Patient states its been about 3 or 4 weeks that she has been steadily getting weaker. This was the first time that she was unable to get off the toilet seat on her own. States that she normally can walk around using her walker or her cane. states that she was diagnosed with diverticulitis a week ago and was admitted to [facility]. She was treated and released from their. He was out of town the last 4 days or so and has now returned. He is concerned that her creatinine which had been 2.7 before has gone up to 4.2. Patient has history of CVAs in the past and has poor enunciation skills which is given her speech difficulty chronically. Patient had been on dialysis but received a kidney transplant from her son in the year 1999. Patient is followed by Dr. Fortune. Related Data Home Medications Medication Instructions Recorded Confirmed omeprazole 20 mg capsule,delayed 20 mg PO DAILY 08/11/15 02/27/22 release tacrolimus 1 mg capsule, 3 mg PO BID cap 02/05/16 02/27/22 immediate-release (Prograf) prednisone 5 mg tablet 5 mg PO QDAY 06/07/17 02/27/22 donepezil 10 mg tablet 10 mg PO HS 04/22/19 02/27/22 mycophenolate mofetil 250 mg 750 mg PO BID 05/15/21 02/27/22 capsule torsemide 20 mg PO DAILY 05/15/21 02/27/22 cholecalciferol (vitamin D3) 125 125 mcg PO QDAY 01/22/22 02/27/22 mcg (5,000 unit) capsule clopidogrel 75 mg tablet 1 tab PO QDAY 01/22/22 02/27/22 denosumab 60 mg/mL subcutaneous 60 mg SUBCUT Q3M 01/22/22 02/27/22 syringe (Prolia) levothyroxine 100 mcg tablet 1 tab PO QDAY 01/22/22 02/27/22 metoprolol succinate 25 mg 25 mg PO BID 01/22/22 02/27/22 tablet,extended release 24 hr quetiapine 50 mg tablet 100 mg PO HS 01/22/22 02/27/22 magnesium oxide 480 mg PO QDAY 01/23/22 02/27/22 Centrum Silver Women 1 tab PO DAILY 02/19/22 02/27/22 allopurinol 100 mg tablet 1 tab PO QDAY 02/19/22 02/27/22 atorvastatin 80 mg tablet 1 tab PO QDAY 02/19/22 02/27/22 atorvastatin 80 mg tablet (Lipitor) 80 mg PO QDAY 02/27/22 02/27/22 losartan 50 mg tablet 50 mg PO QDAY 02/27/22 02/27/22 Previous Rx's Medication Instructions Recorded apixaban 5 mg tablet (Eliquis) 5 mg PO BID #60 tab 02/16/22 ondansetron 4 mg disintegrating 4 mg PO Q8H PRN #9 tab 02/26/22 tablet oseltamivir 30 mg capsule 30 mg PO DAILY #1 cap 03/01/22 Allergies Allergy/AdvReac Type Severity Reaction Status Date / Time ciprofloxacin AdvReac Intermediate Cramping Verified 03/20/22 04:08 of the Muscles levofloxacin AdvReac Intermediate Other Verified 03/20/22 04:08 Quinolones AdvReac Intermediate Muscle Pain Verified 03/20/22 04:08 Cephalosporins AdvReac Mild Rash Verified 03/20/22 04:08 cilastatin [From Primaxin] AdvReac Mild Rash Verified 03/20/22 04:08 droperidol [From Inapsine] AdvReac Mild Rash Verified 03/20/22 04:08 imipenem [From Primaxin] AdvReac Mild Rash Verified 03/20/22 04:08 Labetalol [From Trandate] AdvReac Mild Rash Verified 03/20/22 04:08 meperidine [From Demerol] AdvReac Mild Rash Verified 03/20/22 04:08 metronidazole [From Flagyl] AdvReac Mild Rash Verified 03/20/22 04:08 pentazocine [From Talwin] AdvReac Mild Rash Verified 03/20/22 04:08 phenobarbital AdvReac Mild Rash Verified 03/20/22 04:08 propoxyphene AdvReac Mild Rash Verified 03/20/22 04:08 [From Pretty] tobramycin AdvReac Mild Rash Verified 03/20/22 04:08 Review of Systems ROS ROS Narrative: Narrative: Constitutional: Denies fever Eyes: Denies eye discharge ENT ED: Denies throat pain or rhinorrhea Cardiovascular: Denies chest pain Respiratory: Denies shortness of breath or cough Gastrointestinal: Denies abdominal pain, nausea or vomiting Genitourinary: Denies dysuria Musculoskeletal: Denies back pain Integumentary: Denies rash Neurological: Reports weakness Psychiatric: Denies anxiety Hematological/Lymphatic: Denies easy bleeding PFSH Narrative Patient History Narrative: Narrative: Medical/Surgical/Family History All Active Problems (Updated 03/20/22 @ 08:45 by Kamlesh Dinh MD) Nausea (Acute) Influenza A (Acute) Encephalopathy, metabolic (Acute) Leukocytosis (Acute) Fever (Acute) Hypomagnesemia (Acute) Weakness (Acute) Acute renal failure superimposed on stage 4 chronic kidney disease (Acute) Adynamic ileus (Acute) Vertigo (Acute) Gout flare (Acute) Pulmonary emboli (Acute) Stenosis of both vertebral arteries (Acute) Acute dyspnea (Acute) CHF (congestive heart failure) (Acute) CAD (coronary artery disease) (Acute) Atrial fibrillation (Acute) SBO (small bowel obstruction) (Acute) Diverticulitis of sigmoid colon (Acute) Nausea & vomiting (Acute) Matos's palsy (Acute) Diverticulitis (Acute) Constipation (Acute) Acute diverticulitis of intestine (Acute) Kidney transplant recipient (Acute) [id number] kidney injury (Acute) Cardiomegaly (Acute) Elevated brain natriuretic peptide (BNP) level (Acute) Fall (Acute) Hematoma of parietal scalp (Acute) Depression with suicidal ideation (Acute) Acute UTI (urinary tract infection) (Acute) Ureterolithiasis (Acute) Compression fracture of T11 vertebra (Acute) Suicide attempt (Acute) Laceration (Acute) Acute UTI (Acute) Anemia (Acute) CRF (chronic renal failure) (Acute) Acute alteration in mental status (Acute) ST elevation (STEMI) myocardial infarction (Acute) Right shoulder pain (Acute) Acute right-sided thoracic back pain (Acute) Hypertension (Acute) Urinary frequency (Acute) Other mcfp (current) drug therapy (Chronic) Secondary hyperparathyroidism of renal origin (Chronic) Hyperlipidemia (Chronic) Glaucoma (Chronic) Macular degeneration (Chronic) Diverticulitis (Chronic) Idiopathic aseptic necrosis of femur (Chronic) Osteoporosis (Chronic) Vitamin D deficiency (Chronic) Anemia (Chronic) Essential hypertension (Chronic) Chronic kidney disease (CKD) (Chronic) Medical History Anemia Borderline hyperglycemia Chronic kidney disease (CKD) Stage 3 Dislocation, finger, metacarpophalangeal joint Diverticulitis Essential hypertension Glaucoma Hyperlipidemia Idiopathic aseptic necrosis of femur Macular degeneration Nausea & vomiting 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 Patient with chronic kidney insufficiency Osteoporosis Other manager long term care (current) drug therapy Phlebitis and thrombophlebitis Secondary hyperparathyroidism of renal origin Urinary tract infection Vitamin D deficiency Surgical History 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 Family history of AICD (automatic internal cardiac defibrillator) (~1996) History of hand surgery (~08/2015) History of hysterectomy (~1978) History of intraocular lens implant February & March 1989 History of kidney transplant (07/27/00) History of knee surgery (~04/2009) History of orthopedic surgery (04/28/96) mohamud placement in right leg 04/28/96 @ [facility]; muscle relocation and skin grafts of right leg 04/29/96 @ [facility] History of parathyroidectomy (11/27/95) History of surgery fistula placement February 1993 @ [facility]; fistula declot; Graft placement upper right arm 10/1999 @ [facility] Kidney replaced by transplant Status post biopsy of kidney (~03/2007) Family History Father Hypertension CVA (cerebral vascular accident) Colon polyps needed surgical resection/partial colectomy Prostate cancer Hyperlipidemia Social History Smoking Status: Never smoker Alcohol Intake Frequency: does not drink Substance Use: does not use Exam Narrative Narrative: Narrative: General Limitations: no limitations General appearance: Present alert and in no apparent distress Head Head: Present atraumatic and normocephalic Respiratory Respiratory: Absent respiratory distress Cardiovascular Cardiovascular: Present regular rate, normal rhythm and systolic murmur (Grade 3/6 pansystolic patient says no history of murmur) Adbominal Abdominal: Present soft; Absent tenderness Extremities Extremities: Present normal inspection Back Back: Present normal inspection Neurological Neurological: Present alert, oriented X3 and other (Speech slightly difficult to understand. Believe this is a residual from her 1995 CVA) Psychiatric Psychiatric: Present normal affect and depressed Skin Skin: Present warm (WNL) and dry Course Consultations Consultation #1: Discussed the case with Dr. Moran, Nephrol. Pt's usual neph is Dr. Fortune. Discussed the patient's generalized weakness and the fact that its been progressing. Discussed her creatinine of 3.3 with a typical creatinine in the mid twos. Dr. Moran said he would consult on the patient if the hospitalist requested. Time: 07:40 Consultation #2: Discussed case with Dr. Villanueva the hospitalist. Based on Dr. Moran being willing to consult if she is in the hospital he is agreeable to admit her to the hospital for further evaluation. Time: 08:43 Vital Signs Vital signs: Vital Signs Temperature 97.0 F 03/20/22 04:04 Pulse Rate 81 03/20/22 04:04 Respiratory Rate 16 03/20/22 04:04 Blood Pressure 121/84 03/20/22 04:04 Pulse Oximetry (%) 99 03/20/22 04:04 Temperature 97.0 F 03/20/22 04:04 Pulse Rate 86 03/20/22 08:44 Respiratory Rate 18 03/20/22 05:29 Blood Pressure 91/80 03/20/22 08:31 Pulse Oximetry (%) 99 03/20/22 08:44 [facility] Narrative Medical decision making narrative: Narrative: 67-year-old female brought in by because of weakness. Patient was recently hospitalized for acute diverticulitis. Now with episode of incontinence and inability to get up off the toilet seat. Differential diagnosis includes electrolyte abnormality, anemia, infection, UTI, deconditioning, other. Chest x-ray shows mild congestive heart failure. White count was normal at 8.1. Hemoglobin was 10.6. Urine dip showed no blood no nitrites and no leukocytes. Sodium was 139 potassium 5.0 chloride 108 bicarb of 13. BUN was 47 and creatinine was 3.3. Patient states she is too weak to get out of bed. Patient states this was the first time she was unable to get off the toilet seat because of weakness. States she has had progressive weakness over the past few weeks. Consult placed request with hospitalist to discuss further management.([id number]). [id number] Discussed case with assistant professor of biology Dr. Moran. He is available and will consult if requested by the hospitalist. 0835 discussed case with hospitalist . He will come down to the emergency department to evaluate for probable admission. Lab Data Result diagrams: 03/20/22 04:56 03/20/22 04:56 Labs: Lab Results 03/20/22 03/20/22 03/20/22 Range/Units 04:56 04:56 05:29 WBC 8.1 (4.5-11.0) K/mcL RBC 3.75 (3.59-5.38) M/mcL Hgb 10.6 L (11.2-15.7) g/dL Hct 37.0 (34.1-44.9) % MCV 98.7 (80.0-100.0) fL MCH 28.3 (26.0-34.0) pg MCHC 28.6 L (31.0-36.0) g/dL RDW 17.7 H (11.5-14.5) % Plt Count 270 (140-440) K/mcL MPV 10.3 (7.4-10.4) fL Neut % (Auto) 81.4 H (38.0-78.0) % Lymph % (Auto) 13.6 L (15.5-49.0) % [place] % (Auto) 4.0 (1.0-12.0) % Eos % (Auto) 0.6 (0.0-7.0) % Baso % (Auto) 0.4 (0.0-2.0) % Lymph # (Auto) 1.10 L (1.50-4.80) K/mcL [place] # (Auto) 0.32 (0.10-0.90) K/mcL Eos # (Auto) 0.05 (0.00-0.70) K/mcL Baso # (Auto) 0.03 (0.00-0.30) K/mcL Absolute Neutrophils 6.56 (1.80-8.00) K/mcL Sodium 139 (133-145) mmol/L Potassium 5.0 (3.3-5.1) mmol/L Chloride 108 (96-108) mmol/L Carbon Dioxide 13 L (22-30) mmol/L Anion Gap 18.0 H (8.0-16.0) BUN 47 H (8-23) mg/dL Creatinine 3.3 H (0.6-1.1) mg/dL GFR Calculation 14 Glucose 91 (70-105) mg/dL Calcium 7.2 L (8.6-10.4) mg/dL Total Bilirubin 0.4 (0.1-1.0) mg/dL AST 29 (<32) U/L ALT 19 (<40) U/L Alkaline Phosphatase 107 (39-117) U/L Total Protein 5.3 L (5.9-8.4) gm/dL Albumin 2.8 L (3.2-5.2) gm/dL Globulin 2.5 (2.2-3.7) gm/dL Albumin/Globulin Ratio 1.1 (1.0-2.3) Urine Color Lisandra Urine Appearance Cloudy A (Clear) Urine pH 5.0 (5.0-9.0) Ur Specific [place] 1.021 (1.000-1.035) Urine Protein Negative (Negative) mg/dL Urine Glucose (UA) Negative (Negative) mg/dL Urine Ketones Negative (Negative) mg/dL Urine Occult Blood Negative (Negative) mg/dL Urine Nitrate Negative (Negative) Urine Bilirubin Negative (Negative) mg/dL Urine Urobilinogen Negative mg/dL Ur Leukocyte Esterase 25 A (Negative) /uL Urine RBC < 1 (0-3) /hpf Urine WBC 5 H (0-4) /hpf Ur Squamous Epith Cells 15 H (0-4) /hpf Ur Transition Epith Cell 1 (0-2) /hpf Amorphous Crystals Few A (None) /hpf Urine Bacteria Few A (0) /hpf Urine Mucus Few A (None) /hpf Ur Culture Indicated? No EKG Data EKG #1: EKG attestation: Yes I reviewed and interpreted this EKG. Rhythm: A.Fib [place]/QRS: normal Voltage: decreased voltage throughout ST segment elevation in: None ST segment depression in: None Interpretation: other (Abnormal EKG. Atrial fibrillation.) Discharge Plan Patient/Caregiver Discharge Instructions Pt seen by BUILDING MAINTENANCE SUPERVISOR/PA only: No Clinical Impression: Weakness Patient Disposition: Xfer As Inpt ([facility]) Condition: Fair Follow up with: Turner Devine MD [Primary Care Provider] - Prescriptions: No Action tacrolimus [Prograf] 1 mg capsule 3 mg PO BID 0RF prednisone 5 mg tablet 5 mg PO QDAY 0RF omeprazole 20 MG capsule 20 mg PO DAILY 0RF Rx Instructions: 30 mins. before morning meal donepezil 10 MG tablet 10 mg PO HS 0RF torsemide 20 mg PO DAILY 0RF mycophenolate mofetil 250 mg Capsule 750 mg PO BID 0RF clopidogrel 75 mg tablet 1 tab PO QDAY 0RF levothyroxine 100 mcg tablet 1 tab PO QDAY 0RF metoprolol succinate 25 mg tablet extended release 24 hr 25 mg PO BID 0RF Rx Instructions: 3 tabs BID cholecalciferol (vitamin D3) 125 mcg (5,000 unit) Capsule 125 mcg PO QDAY 0RF quetiapine 50 mg tablet 100 mg PO HS 0RF Prolia 60 mg/mL syringe 60 mg subcut Q3M 0RF Label Comments: Recently had this magnesium oxide 400 mg magnesium Tablet 480 mg PO QDAY 0RF Eliquis 5 mg tablet 5 mg PO BID Qty: 60 0RF atorvastatin 80 mg tablet 1 tab PO QDAY 0RF allopurinol 100 mg tablet 1 tab PO QDAY 0RF Centrum Silver Women 1 tab PO DAILY 0RF ondansetron 4 mg tablet,disintegrating 4 mg PO Q8H PRN (Reason: nausea and vomiting) Qty: 9 0RF losartan 50 mg Tablet 50 mg PO QDAY 0RF atorvastatin [Lipitor] 80 mg Tablet 80 mg PO QDAY 0RF oseltamivir 30 mg Capsule 30 mg PO DAILY Qty: 1 0RF Rx Instructions: Last dose on 03/03.
[2022-03-20 05:27] LABS: Basophils # (Auto) 0.03 K/mcL (0.00-0.30); Basophils % (Auto) 0.4 % (0.0-2.0); Eosinophils # (Auto) 0.05 K/mcL (0.00-0.70); Eosinophils % (Auto) 0.6 % (0.0-7.0); Hemoglobin 10.6 g/dL (11.2-15.7); Lymphocytes % (Auto) 13.6 % (15.5-49.0); Mean Cell Volume 98.7 fL (80.0-100.0); Mean Corpuscular HGB Conc 28.6 g/dL (31.0-36.0); Mean Platelet Volume 10.3 fL (7.4-10.4); Monocytes # (Auto) 0.32 K/mcL (0.10-0.90); Neutrophils % (Auto) 81.4 % (38.0-78.0); Platelet Count 270 K/mcL (140-440); RBC 3.75 M/mcL (3.59-5.38); Red Cell Distribution Width 17.7 % (11.5-14.5); WBC 8.1 K/mcL (4.5-11.0)
[2022-03-20] MEDS ORDERED: FUROSEMIDE 20 MG TABLET PO ONE (05:39)
[2022-03-20 05:44] LABS: ALT/SGPT 19 U/L (<40); AST/SGOT 29 U/L (<32); Albumin 2.8 gm/dL (3.2-5.2); Albumin/Globulin Ratio 1.1 (1.0-2.3); Alkaline Phosphatase 107 U/L (39-117); Bilirubin,Total 0.4 mg/dL (0.1-1.0); Blood Urea Nitrogen 47 mg/dL (8-23); Calcium 7.2 mg/dL (8.6-10.4); Carbon Dioxide 13 mmol/L (22-30); Chloride 108 mmol/L (96-108); Globulin 2.5 gm/dL (2.2-3.7); Glomerular Filtration Rate 14; Glucose 91 mg/dL (70-105)
[2022-03-20 06:08] LABS: Appearance,Urine CLOUDY (Clear); Bacteria,Urine FEW /hpf (0); Bilirubin,Urine Negative (Negative); Color,Urine AMBER; Culture Indicated,Urine No; Glucose,Urine (UA) Negative (Negative); Ketones,Urine Negative (Negative); Leukocyte Esterase,Urine 25 /uL (Negative); Mucus,Urine FEW /hpf; Nitrate,Urine Negative (Negative); Protein,Urine Negative (Negative); Specific Gravity,Urine 1.021 (1.000-1.035); Urine Amorphous Crystals FEW /hpf; Urine Blood Negative (Negative); Urine RBC < 1 /hpf (0-3); Urine Squamous Epithelial Cell 15 /hpf (0-4); Urine Transitional Epi Cells 1 /hpf (0-2); Urine WBC 5 /hpf (0-4); Urobilinogen,Urine Negative
--- NOTE | 2022-03-20 09:01 | Internal Med History&Physical ---
HPI History of Present Illness Patient information: Note initiated : 03/20/22 at 8:45 am Service Date, if different from initiated Date: [] Patient: Wendy Ellsworth a 67 y/o F admitted on for Weight Gain/Weakness. Chief Complaint: [] History of present illness: Ms. Ellsworth is a 67 year old F Presents to the ED with increased weakness, also reports weight gain of 10 pound weight gain past few days. Also says she is slurring her words more than usual and seems more confused. Patient was recently admitted to [facility] for recurrent diverticulitis and was discharged yesterday, was there for several days. Patient says she got home from [facility] yesterday afternoon and slept through the rest of the day and night and when she woke up she noticed how weak and tired she was, She needed help getting off of the commode. Patient was admitted here in early February for 4 days for Encephalopathy influenza A and volume depletion. She was also admitted here in January for 4 days for acute diverticulitis. She was admitted here in December for 4 days for pulmonary embolism. Last admission prior to that was April 2021 for diverticulitis, for 4 days. Creatinine was noted found to be elevated above baseline. Acidosis with bicarb quite low. Case was discussed with Dr. Moran will follow patient. Patient denies any chest pain coughing shortness of breath or fevers. Has mild nausea at times. Chest x-ray with cephalization. Review of Systems: Pertinent positives as above. Denies headache/fever/chills/vomiting/chest or abdominal pain/cough/dyspnea/diarrhea. Remaining 10 point review of system reviewed negative PFSH PFSH All Active Problems (Updated 03/20/22 @ 08:45 by Kamlesh Dinh MD) Nausea (Acute) Influenza A (Acute) Encephalopathy, metabolic (Acute) Leukocytosis (Acute) Fever (Acute) Hypomagnesemia (Acute) Weakness (Acute) Acute renal failure superimposed on stage 4 chronic kidney disease (Acute) Adynamic ileus (Acute) Vertigo (Acute) Gout flare (Acute) Pulmonary emboli (Acute) Stenosis of both vertebral arteries (Acute) Acute dyspnea (Acute) CHF (congestive heart failure) (Acute) CAD (coronary artery disease) (Acute) Atrial fibrillation (Acute) SBO (small bowel obstruction) (Acute) Diverticulitis of sigmoid colon (Acute) Nausea & vomiting (Acute) Matos's palsy (Acute) Diverticulitis (Acute) Constipation (Acute) Acute diverticulitis of intestine (Acute) Kidney transplant recipient (Acute) [id number] kidney injury (Acute) Cardiomegaly (Acute) Elevated brain natriuretic peptide (BNP) level (Acute) Fall (Acute) Hematoma of parietal scalp (Acute) Depression with suicidal ideation (Acute) Acute UTI (urinary tract infection) (Acute) Ureterolithiasis (Acute) Compression fracture of T11 vertebra (Acute) Suicide attempt (Acute) Laceration (Acute) Acute UTI (Acute) Anemia (Acute) CRF (chronic renal failure) (Acute) Acute alteration in mental status (Acute) ST elevation (STEMI) myocardial infarction (Acute) Right shoulder pain (Acute) Acute right-sided thoracic back pain (Acute) Hypertension (Acute) Urinary frequency (Acute) Other group home (current) drug therapy (Chronic) Secondary hyperparathyroidism of renal origin (Chronic) Hyperlipidemia (Chronic) Glaucoma (Chronic) Macular degeneration (Chronic) Diverticulitis (Chronic) Idiopathic aseptic necrosis of femur (Chronic) Osteoporosis (Chronic) Vitamin D deficiency (Chronic) Anemia (Chronic) Essential hypertension (Chronic) Chronic kidney disease (CKD) (Chronic) Medical History Anemia Borderline hyperglycemia Chronic kidney disease (CKD) Stage 3 Dislocation, finger, metacarpophalangeal joint Diverticulitis Essential hypertension Glaucoma Hyperlipidemia Idiopathic aseptic necrosis of femur Macular degeneration Nausea & vomiting 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 Patient with chronic kidney insufficiency Osteoporosis Other group home (current) drug therapy Phlebitis and thrombophlebitis Secondary hyperparathyroidism of renal origin Urinary tract infection Vitamin D deficiency Surgical History 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 Family history of AICD (automatic internal cardiac defibrillator) (~1996) History of hand surgery (~08/2015) History of hysterectomy (~1978) History of intraocular lens implant February & March 1989 History of kidney transplant (07/27/00) History of knee surgery (~04/2009) History of orthopedic surgery (04/28/96) mohamud placement in right leg 04/28/96 @ [facility]; muscle relocation and skin grafts of right leg 04/29/96 @ [facility] History of parathyroidectomy (11/27/95) History of surgery fistula placement February 1993 @ [facility]; fistula declot; Graft placement upper right arm 10/1999 @ [facility] Kidney replaced by transplant Status post biopsy of kidney (~03/2007) Family History Father Hypertension CVA (cerebral vascular accident) Colon polyps needed surgical resection/partial colectomy Prostate cancer Hyperlipidemia Social History alcohol intake frequency: does not drink substance use type: does not use MEDS/ALLERGIES Home Medications and Allergies Home Medications Medication Instructions Recorded Confirmed Type omeprazole 20 mg capsule,delayed 20 mg PO DAILY 08/11/15 03/20/22 History release tacrolimus 1 mg capsule, 3 mg PO BID cap 02/05/16 03/20/22 History immediate-release (Prograf) prednisone 5 mg tablet 5 mg PO QDAY 06/07/17 03/20/22 History donepezil 10 mg tablet 10 mg PO HS 04/22/19 03/20/22 History mycophenolate mofetil 250 mg 750 mg PO BID 05/15/21 03/20/22 History capsule torsemide 20 mg PO DAILY 05/15/21 03/20/22 History cholecalciferol (vitamin D3) 125 125 mcg PO QDAY 01/22/22 03/20/22 History mcg (5,000 unit) capsule clopidogrel 75 mg tablet 1 tab PO QDAY 01/22/22 03/20/22 History denosumab 60 mg/mL subcutaneous 60 mg SUBCUT Q3M 01/22/22 03/20/22 History syringe (Prolia) levothyroxine 100 mcg tablet 1 tab PO QDAY 01/22/22 03/20/22 History metoprolol succinate 25 mg 25 mg PO BID 01/22/22 03/20/22 History tablet,extended release 24 hr magnesium oxide 480 mg PO QDAY 01/23/22 03/20/22 History apixaban 5 mg tablet (Eliquis) 5 mg PO BID #60 tab 02/16/22 03/20/22 Rx Centrum Silver Women 1 tab PO DAILY 02/19/22 03/20/22 History allopurinol 100 mg tablet 1 tab PO QDAY 02/19/22 03/20/22 History atorvastatin 80 mg tablet 1 tab PO QDAY 02/19/22 03/20/22 History ondansetron 4 mg disintegrating 4 mg PO Q8H PRN #9 tab 02/26/22 03/20/22 Rx tablet losartan 50 mg tablet 50 mg PO QDAY 02/27/22 03/20/22 History oseltamivir 30 mg capsule 30 mg PO DAILY #1 cap 03/01/22 03/20/22 Rx metronidazole 500 mg tablet 500 mg PO Q8H 03/20/22 03/20/22 History Allergies Allergy/AdvReac Type Severity Reaction Status Date / Time ciprofloxacin AdvReac Intermediate Cramping Verified 03/20/22 04:08 of the Muscles levofloxacin AdvReac Intermediate Other Verified 03/20/22 04:08 Quinolones AdvReac Intermediate Muscle Pain Verified 03/20/22 04:08 Cephalosporins AdvReac Mild Rash Verified 03/20/22 04:08 cilastatin [From Primaxin] AdvReac Mild Rash Verified 03/20/22 04:08 droperidol [From Inapsine] AdvReac Mild Rash Verified 03/20/22 04:08 imipenem [From Primaxin] AdvReac Mild Rash Verified 03/20/22 04:08 Labetalol [From Trandate] AdvReac Mild Rash Verified 03/20/22 04:08 meperidine [From Demerol] AdvReac Mild Rash Verified 03/20/22 04:08 metronidazole [From Flagyl] AdvReac Mild Rash Verified 03/20/22 04:08 pentazocine [From Talwin] AdvReac Mild Rash Verified 03/20/22 04:08 phenobarbital AdvReac Mild Rash Verified 03/20/22 04:08 propoxyphene AdvReac Mild Rash Verified 03/20/22 04:08 [From Darvocet-N] tobramycin AdvReac Mild Rash Verified 03/20/22 04:08 EXAM Constitutional Vitals: Temp Pulse Resp BP Pulse Ox 97.0 F 86 18 91/80 99 03/20/22 04:04 03/20/22 08:44 03/20/22 05:29 03/20/22 08:31 03/20/22 08:44 Exam: General: Alert, Awake, No acute Distress Eyes/N/T: EOMI, PERRL, JVD noted Head/Neck: neck supple, normocephalic atraumatic CV: RRR, 1-2/6 SM. normal s1/s2 Pulm: Clear b/l, no wheezing/rhonchi/rales Abd: soft, nontender, +BS x4 Ext: no clubbing/cyanosis, 1-2+ b/l LE edema Neuro: Alert, no focal deficits, moves all extremities, CN 2-12 grossly intact, symmetrical strength b/l upper/lower, sensations intact b/l upper/lower Skin: warm/dry DATA Data Completed and Pending Labs: Labs from last 24 hours 03/20/22 03/20/22 03/20/22 08:33 05:29 04:56 WBC RBC Hgb Hct MCV MCH MCHC RDW Plt Count MPV Neut % (Auto) Lymph % (Auto) [place] % (Auto) Eos % (Auto) Baso % (Auto) Lymph # (Auto) [place] # (Auto) Eos # (Auto) Baso # (Auto) Absolute Neutrophils Sodium 139 Potassium 5.0 Chloride 108 Carbon Dioxide 13 L Anion Gap 18.0 H BUN 47 H Creatinine 3.3 H GFR Calculation 14 Glucose 91 Calcium 7.2 L Total Bilirubin 0.4 AST 29 ALT 19 Alkaline Phosphatase 107 NT-Pro-B Natriuret Pep Pending Total Protein 5.3 L Albumin 2.8 L Globulin 2.5 Albumin/Globulin Ratio 1.1 Urine Color Lisandra Urine Appearance Cloudy A Urine pH 5.0 Ur Specific Kim 1.021 Urine Protein Negative Urine Glucose (UA) Negative Urine Ketones Negative Urine Occult Blood Negative Urine Nitrate Negative Urine Bilirubin Negative Urine Urobilinogen Negative Ur Leukocyte Esterase 25 A Urine RBC < 1 Urine WBC 5 H Ur Squamous Epith Cells 15 H Ur Transition Epith Cell 1 Amorphous Crystals Few A Urine Bacteria Few A Urine Mucus Few A Ur Culture Indicated? No 03/20/22 04:56 WBC 8.1 RBC 3.75 Hgb 10.6 L Hct 37.0 MCV 98.7 MCH 28.3 MCHC 28.6 L RDW 17.7 H Plt Count 270 MPV 10.3 Neut % (Auto) 81.4 H Lymph % (Auto) 13.[address] [place] % (Auto) 4.0 Eos % (Auto) 0.6 Baso % (Auto) 0.4 Lymph # (Auto) 1.[address] # (Auto) 0.32 Eos # (Auto) 0.05 Baso # (Auto) 0.03 Absolute Neutrophils 6.56 Sodium Potassium Chloride Carbon Dioxide Anion Gap BUN Creatinine GFR Calculation Glucose Calcium Total Bilirubin AST ALT Alkaline Phosphatase NT-Pro-B Natriuret Pep Total Protein Albumin Globulin Albumin/Globulin Ratio Urine Color Urine Appearance Urine pH Ur Specific Kim Urine Protein Urine Glucose (UA) Urine Ketones Urine Occult Blood Urine Nitrate Urine Bilirubin Urine Urobilinogen Ur Leukocyte Esterase Urine RBC Urine WBC Ur Squamous Epith Cells Ur Transition Epith Cell Amorphous Crystals Urine Bacteria Urine Mucus Ur Culture Indicated? A/P Narrative A/P Narrative: A: *WADE on CKD IV (Renal transplant patient, follows with [facility]): -On immunosuppressive therapy *Metabolic Acidosis: 2/2 above *acute on chronic CHF & Volume Overload: *Metabolic Encephalopathy: *MCI vs mild Dementia / Anxiety: On donepezil and seroquel *Generalized weakness/deconditioning/Debility: Has increasing needs at home -poor functional status *Anemia,chronic: *h/o b/l PE in December: on eliquis *CAD w/stent last Summer: on statin/plavix/bb *h/o AICD/PPM: *HTN: Low BP on admit *Hypothyroidism: *GERD: *SLE: *h/o recurrent diverticulitis: recently admitted to [facility] P: -Nephrology consultation -defer diuretics to nephrology -monitor I/o's, weights, UOP -replete electrolytes -cont renal transplant medications -Continue Eliquis/Plavix/statin/BB -defer home torsemide to nephrology -hold ARB for low BP and WADE, clarify if on at home -Home medication reconciliation -PT/OT -CM for placement to SNF likely -ppx: Eliquis/home PPI DNR Time Spent With Patient Time: Total time spent is greater than 50% in coordination of care (as documented) at patient's floor/unit and/or counseling patient: Total time spent with greater than 50% in coordination of care (as documented) at patient's floor/unit and/or counseling patient:: Greater than 70 minutes
[2022-03-20] MEDS ORDERED: ACETAMINOPHEN 325 MG TABLET PO ONE (09:58)
[2022-03-20] MEDS ORDERED: FUROSEMIDE 20 MG/2 ML VIAL IV ONE (10:07)
[2022-03-20] MEDS ORDERED: ONDANSETRON 4 MG/2 ML VIAL IV PRN (11:37)
[2022-03-20] MEDS ORDERED: POTASSIUM CHLORIDE 20 MEQ TABLET PO PRN ×2 (11:37)
[2022-03-20] MEDS ORDERED: IPRATROPIUM/ALBUTEROL 3 ML AMPUL.NEB NEB PRN (11:37)
[2022-03-20] MEDS ORDERED: POLYETHYLENE GLYCOL 3350 17 GM PACKET PO PRN (11:37)
[2022-03-20] MEDS ORDERED: ACETAMINOPHEN 325 MG TABLET PO PRN (11:37)
[2022-03-20] MEDS ORDERED: MAGNESIUM SULFATE 2 GM/50 ML BAG IV PRN (11:37)
[2022-03-20] MEDS ORDERED: POTASSIUM CHLORIDE 40 MEQ in DEXTROSE 5% IN WATER 500 ML IV PRN (11:37)
[2022-03-20] MEDS ORDERED: SENNOSIDES 1 TABLET PO PRN (11:37)
[2022-03-20] MEDS ORDERED: METOCLOPRAMIDE 10 MG/2 ML VIAL IV PRN (11:37)
[2022-03-20] MEDS: APIXABAN 5 MG TABLET PO SCH ×2 (13:05→21:25)
[2022-03-20] MEDS: predniSONE 5 MG TABLET PO SCH (13:05)
[2022-03-20] MEDS: metroNIDAZOLE 500 MG TABLET PO SCH ×2 (13:05→21:25)
[2022-03-20] MEDS: LACTOBACILLUS 1 CAPSULE PO SCH ×2 (13:05→21:24)
[2022-03-20] MEDS: 0.9 % SODIUM CHLORIDE 10 ML SYRINGE IV SCH ×2 (13:07→20:13)
--- NOTE | 2022-03-20 13:37 | XRay Report ---
CLINICAL INFORMATION: Dyspnea COMPARISON: 02/27/2022 TECHNIQUE: Portable FINDINGS: AICD remain in stable satisfactory position without complication. Moderate cardiomegaly is stable. Mediastinum is unremarkable. Minimal cephalization upper lobe pulmonary vasculature appreciated. No edema. Mild bibasilar airspace disease likely reflects atelectasis. No effusions. IMPRESSION: Borderline CHF. This has improved from the previous study Interpreted and Authenticated by: Raul De La Torre 03/20/22
--- NOTE | 2022-03-20 14:24 | Nephrology Consult Note ---
HPI Data of Consult Patient: known to practice within the last 3 years Consult date: 03/20/22 Requesting physician: Nemesio Villanueva Primary Care Provider: Turner Devine Family Provider: Dr. Fortune Consult Narrative Chief complaint: Failure to thrive Reason for consult: RTx History of present illness: 67 yr old woman with LRD RTx Admitted with weakness, could not toilet herself due to weekness < 24 post D/C from [facility] She has had 5 hospitalizations since December 2021 for PE, ?diverticultis, encephalopathy, weakness, and no failure to thrive. Baseline SCr 2-3 range with 2 episodes of ARF Metabolic acidosis with maximally acidified urine suggests GI HCO3 losses. Delta CO2>Delta AG suggests mixed anion Gap and non-anion gap acidosis (Renal failure + Diarrhea/GI bicarb losses) Last Tacrolimus level 7.5 at end of January [address] January 2022: The lung bases show chronic bronchitis with scattered scarring. There are no effusions. The heart is markedly enlarged with calcific plaque scattered in the coronary arteries. There is also calcification in the mitral valve. Pacemaker lead in stable satisfactory position. Abdominal images show cholecystectomy changes. Common bile duct normal caliber: 6 mm. The noncontrasted liver and spleen are normal. 20 mm benign adenoma left adrenal gland demonstrates long-term stability. Right adrenal gland normal. Marked pancreatic atrophy is unchanged. There is also severe atrophy of both kidneys with scattered simple cysts compatible with end-stage renal failure. No change. There is no free air, free fluid and no adenopathy. Pelvic images show urinary bladder to be normal. Hysterectomy and oophorectomy changes appreciated. Multiple diverticula present in the sigmoid colon which demonstrates wall thickening and inflamed diverticuli and phlegmon in the perisigmoid fat compatible with simple sigmoid diverticulitis. The stomach, duodenum and jejunum are moderately dilated to the left lower quadrant small bowel loops juxtaposed to the sigmoid sigmoid inflammation. The distal small bowel is decompressed. Presumably there are inflammatory adhesions tethering the small bowel to the sigmoid 10.6 x 5.3 cm transplanted kidney is seen in the right iliac fossa. A vague 17 mm high attenuation lesion is seen in the posterior cortex of the transplant has been stable since the earliest CT should be considered benign. Mild chronic T11 compression fracture is identical to the CT nearly one year prior 05/14/2021. Vague patchy sclerosis and radiolucency in the right superior femoral head is unchanged with suggest developing avascular necrosis. IMPRESSION: 1. Diverticulitis involving the proximal/ mid sigmoid colon. Interestingly, there is a partial small bowel obstruction with a transition point in the juxtaposed small bowel loops in the left lower quadrant. Suspect inflammatory adhesions. 2. Severe bilateral renal atrophy compatible with end-stage renal failure. A few small simple cysts in both kidneys are stable. Renal transplant in the right iliac fossa is normal size. A 17 mm high attenuation lesion posterior cortex of the transplant is unchanged and presumably insignificant likely a small adenoma 3. 20 mm benign adenoma left adrenal gland demonstrating long-term stability 4. Moderate chronic T11 compression fracture stable 5. Suspect developing avascular necrosis in the superior right femoral head 6. Severe pancreatic atrophy-stable CT March 17, 2022: IMPRESSION: 1. Moderate sigmoid diverticulitis although the proximal mid sigmoid colon. Possible microperforation and abscess formation in the anterior perisigmoid fat. 2. High-grade partial small bowel obstruction at the mid jejunal level. This should be related to adhesions or stricture in the left lower quadrant. Exact transition point is not identified. No free air or third spacing 3. Severe bilateral renal atrophy compatible with end-stage renal failure. A few small simple cysts in both kidneys are stable. Renal transplant in the right iliac fossa is normal size. A 17 mm high attenuation lesion posterior cortex of the transplant is unchanged and presumably insignificant likely a small adenoma 3. 20 mm benign adenoma left adrenal gland demonstrating long-term stability 4. Moderate chronic T11 compression fracture stable 5. Moderate edema throughout the subcutaneous fat of the abdomen and pelvis-new from previous exam. Small right pleural effusion is noted with marked cardiomegaly. This may represent [id number] chest x-ray 6. Severe pancreatic atrophy-stable Vital Signs Temp Pulse Pulse Resp BP BP Pulse Ox 03/20/22 14:22 36.6 C 76 16 113/74 94 03/20/22 10:26 36.3 C 72 17 101/75 96 03/20/22 10:15 36.3 C 72 17 101/75 96 03/20/22 09:32 98/74 03/20/22 09:16 108 H 103/79 100 03/20/22 09:01 85 99/76 99 03/20/22 08:46 87 101/76 99 03/20/22 08:44 86 99 03/20/22 08:31 96 H 91/80 98 03/20/22 08:16 89 94/71 97 03/20/22 08:01 90 96/73 99 03/20/22 07:46 93 H 98/78 98 03/20/22 07:31 76 105/82 98 03/20/22 05:29 56 L 18 139/79 95 03/20/22 04:04 36.1 C 81 16 121/84 99 Intake and Output 03/20/22 03/20/22 03/20/22 05:59 13:59 21:59 Intake Total 360 Balance 360 Intake: Oral 360 Other: Urine Appearance Straight Clear Urine Color Dark Yellow Straight Light Lisandra Stool Size Small Stool Color Brown Stool Consistency Soft Loose # Voids 25 # Bowel Movements 2 Weight 74.077 kg 74.077 kg Patient Weight 03/21/22 05:59 Weight 74.077 kg Current Medications Acetaminophen (Acetaminophen 325 Mg Tablet) 650 mg PO Q6HP PRN; Protocol PRN Reason: Per Pain Protocol/Fever > 101 Albuterol/Ipratropium (Ipratropium/Albuterol 3 Ml Ampul.Neb) 3 ml NEB Q4HP PRN PRN Reason: Shortness Of Breath Allopurinol (Allopurinol 100 Mg Tablet) 50 mg PO QDAY [facility] Apixaban (Apixaban 5 Mg Tablet) 5 mg PO BID [facility] Last Admin: 03/20/22 13:05 Dose: 5 mg Documented by: Atorvastatin Calcium (Atorvastatin 40 Mg Tablet) 80 mg PO HS BK Clopidogrel Bisulfate (Clopidogrel 75 Mg Tablet) 75 mg PO QDAY BK Docusate Sodium (Docusate Sodium 100 Mg Capsule) 100 mg PO BID BK Donepezil HCl (Donepezil 10 Mg Tablet) 10 mg PO HS BK Potassium Chloride 40 meq/ (Dextrose) 520 mls @ 130 mls/hr IV UD PRN PRN Reason: Potassium < 3 Magnesium Sulfate (Magnesium Sulfate) 2 gm in 50 mls @ 50 mls/hr IV UD PRN PRN Reason: Magnesium </= 1.6 Lactobacillus Rhamnosus (Lactobacillus 1 Capsule) 1 cap PO BID [facility] Last Admin: 03/20/22 13:05 Dose: 1 cap Documented by: Levothyroxine Sodium (Levothyroxine 100 Mcg Tablet) 100 mcg PO QAMAC BK Metoclopramide HCl (Metoclopramide 10 Mg/2 Ml Vial) 10 mg IV Q6HP PRN PRN Reason: Nausea And Vomiting Metoprolol Succinate (Metoprolol Succinate 25 Mg Tab.Xl.24h) 25 mg PO BID [facility] Metronidazole (Metronidazole 500 Mg Tablet) 500 mg PO Q8 [facility]; Protocol Last Admin: 03/20/22 13:05 Dose: 500 mg Documented by: Mycophenolate Mofetil (Mycophenolate 250 Mg Capsule) 750 mg PO BID [facility] Omeprazole (Omeprazole 20 Mg Capsule) 20 mg PO DAILY [facility] Ondansetron HCl (Ondansetron 4 Mg/2 Ml Vial) 4 mg IV Q4HP PRN PRN Reason: Nausea And Vomiting Last Admin: 03/20/22 13:50 Dose: 4 mg Documented by: Polyethylene Glycol (Polyethylene Glycol 3350 17 Gm Packet) 17 gm PO DAILYP PRN PRN Reason: Constipation Potassium Chloride (Potassium Chloride 20 Meq Tablet) 40 meq PO UD PRN PRN Reason: Potssium is 3-3.5 Potassium Chloride (Potassium Chloride 20 Meq Tablet) 40 meq PO UD PRN PRN Reason: Potassium < 3 Prednisone (Prednisone 5 Mg Tablet) 5 mg PO QDAY [facility] Last Admin: 03/20/22 13:05 Dose: 5 mg Documented by: Senna (Sennosides 1 Tablet) 2 tab PO DAILYP PRN PRN Reason: Constipation Sodium Chloride (0.9 % Sodium Chloride 10 Ml Syringe) 10 ml IV Q8 [facility] Last Admin: 03/20/22 13:07 Dose: 10 ml Documented by: Tacrolimus (Tacrolimus 1 Mg Capsule) 3 mg PO BID [facility] Impression: Failure to thrive Muscle weakness Small bowel narrowing but no vomiting => treated with IV ABx Marked elevation of proBNP Mixed metabolic acidosis (AN gap (+) and NAG) Suspect if you measured ABG there may be compensatory hyperventilation and resp acidosis PE on NOAC but not clear how she was Dx. ARF on CKD 4 21 yr old LRD RTx still on triple immunosuppression Suggestions/Plan: 1. Check CPK and aldolase - if elevated stop statin 2. Reduce dose of mycophenolate 3. I might hold Tacrolimus and use stress dose HC for immunosuppression, check AM cortisol level, if low this argues for adrenal insufficiency. 4. Look for malignancies associated with ocean transportation intermediary immunosuppression. 5. Adjust BP Rx to allow BP to increase 6. LVEF??? 7. Decrease dose of apixaban to 2.5 mg po BID 8. Calculate UAG, FeNa, Urine uric acid/creatinine ratio 9. Replace HCO3 10.Check for Hyperparathyroidism Out of all the above, I favor adrenal insufficiency given low BP, high K, etc. cc:: CC: Nemesio Villanueva Constitutional Constitutional: Present anorexia and weakness EENT Eyes: Present as per HPI Cardiovascular Cardiovascular: Present edema Respiratory Respiratory: Present as per HPI Gastrointestinal Gastrointestinal: Present change in bowel habits, diarrhea and nausea Musculoskeletal Musculoskeletal: Present muscle weakness Integumentary Integumentary: Present dry skin Neurological Neurological: Present tremor(s) and weakness Psychiatric Psychiatric: Present anxiety Hematologic/Lymphatic Hematologic/Lymphatic: Present as per HPI Allergic/Immunologic Allergic/Immunologic: Present as per HPI PFSH PFSH All Active Problems (Updated 03/20/22 @ 17:15 by Sacha Moran MD) Acute renal failure superimposed on stage 4 chronic kidney disease (Acute) Kidney transplant recipient (Acute) Elevated brain natriuretic peptide (BNP) level (Acute) Secondary hyperparathyroidism of renal origin (Chronic) Metabolic acidosis (Acute) SBO (small bowel obstruction) (Acute) Chronic kidney disease (CKD) (Chronic) Essential hypertension (Chronic) Anemia (Chronic) Vitamin D deficiency (Chronic) Osteoporosis (Chronic) Idiopathic aseptic necrosis of femur (Chronic) Diverticulitis (Chronic) Macular degeneration (Chronic) Glaucoma (Chronic) Hyperlipidemia (Chronic) Other longterm (current) drug therapy (Chronic) Hypertension (Acute) Urinary frequency (Acute) Acute right-sided thoracic back pain (Acute) Right shoulder pain (Acute) Matos's palsy (Acute) Diverticulitis (Acute) Constipation (Acute) Acute diverticulitis of intestine (Acute) Ganae-qj-bfciuyz kidney injury (Acute) Cardiomegaly (Acute) Fall (Acute) Hematoma of parietal scalp (Acute) Depression with suicidal ideation (Acute) Acute UTI (urinary tract infection) (Acute) Ureterolithiasis (Acute) Compression fracture of T11 vertebra (Acute) Suicide attempt (Acute) Laceration (Acute) Acute UTI (Acute) Anemia (Acute) CRF (chronic renal failure) (Acute) Acute alteration in mental status (Acute) ST elevation (STEMI) myocardial infarction (Acute) Nausea & vomiting (Acute) Vertigo (Acute) Gout flare (Acute) Pulmonary emboli (Acute) Stenosis of both vertebral arteries (Acute) Acute dyspnea (Acute) CHF (congestive heart failure) (Acute) CAD (coronary artery disease) (Acute) Atrial fibrillation (Acute) Diverticulitis of sigmoid colon (Acute) Adynamic ileus (Acute) Nausea (Acute) Influenza A (Acute) Encephalopathy, metabolic (Acute) Leukocytosis (Acute) Fever (Acute) Hypomagnesemia (Acute) Weakness (Acute) Medical History Anemia Borderline hyperglycemia Chronic kidney disease (CKD) Stage 3 Dislocation, finger, metacarpophalangeal joint Diverticulitis Essential hypertension Glaucoma Hyperlipidemia Idiopathic aseptic necrosis of femur Macular degeneration Nausea & vomiting 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 Patient with chronic kidney insufficiency Osteoporosis Other ocean transportation intermediary (current) drug therapy Phlebitis and thrombophlebitis Secondary hyperparathyroidism of renal origin Urinary tract infection Vitamin D deficiency Surgical History 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 Family history of AICD (automatic internal cardiac defibrillator) (~1996) History of hand surgery (~08/2015) History of hysterectomy (~1978) History of intraocular lens implant February & March 1989 History of kidney transplant (07/27/00) History of knee surgery (~04/2009) History of orthopedic surgery (04/28/96) mohamud placement in right leg 04/28/96 @ [place]; muscle relocation and skin grafts of right leg 04/29/96 @ [place] History of parathyroidectomy (11/27/95) History of surgery fistula placement February 1993 @ [place]; fistula declot; Graft placement upper right arm 10/1999 @ [place] Kidney replaced by transplant Status post biopsy of kidney (~03/2007) Family History Father Hypertension CVA (cerebral vascular accident) Colon polyps needed surgical resection/partial colectomy Prostate cancer Hyperlipidemia Social History alcohol intake frequency: does not drink substance use type: does not use MEDS/ALLERGIES Home Medications and Allergies Home Medications Medication Instructions Recorded Confirmed Type omeprazole 20 mg capsule,delayed 20 mg PO DAILY 08/11/15 03/20/22 History release tacrolimus 1 mg capsule, 3 mg PO BID cap 02/05/16 03/20/22 History immediate-release (Prograf) prednisone 5 mg tablet 5 mg PO QDAY 06/07/17 03/20/22 History donepezil 10 mg tablet 10 mg PO HS 04/22/19 03/20/22 History mycophenolate mofetil 250 mg 750 mg PO BID 05/15/21 03/20/22 History capsule torsemide 20 mg PO DAILY 05/15/21 03/20/22 History cholecalciferol (vitamin D3) 125 125 mcg PO QDAY 01/22/22 03/20/22 History mcg (5,000 unit) capsule clopidogrel 75 mg tablet 1 tab PO QDAY 01/22/22 03/20/22 History denosumab 60 mg/mL subcutaneous 60 mg SUBCUT Q3M 01/22/22 03/20/22 History syringe (Prolia) levothyroxine 100 mcg tablet 1 tab PO QDAY 01/22/22 03/20/22 History metoprolol succinate 25 mg 25 mg PO BID 01/22/22 03/20/22 History tablet,extended release 24 hr magnesium oxide 480 mg PO QDAY 01/23/22 03/20/22 History apixaban 5 mg tablet (Eliquis) 5 mg PO BID #60 tab 02/16/22 03/20/22 Rx Centrum Silver Women 1 tab PO DAILY 02/19/22 03/20/22 History allopurinol 100 mg tablet 1 tab PO QDAY 02/19/22 03/20/22 History atorvastatin 80 mg tablet 1 tab PO QDAY 02/19/22 03/20/22 History ondansetron 4 mg disintegrating 4 mg PO Q8H PRN #9 tab 02/26/22 03/20/22 Rx tablet losartan 50 mg tablet 50 mg PO QDAY 02/27/22 03/20/22 History metronidazole 500 mg tablet 500 mg PO Q8H 03/20/22 03/20/22 History Allergies Allergy/AdvReac Type Severity Reaction Status Date / Time ciprofloxacin AdvReac Intermediate Cramping Verified 03/20/22 04:08 of the Muscles levofloxacin AdvReac Intermediate Other Verified 03/20/22 04:08 Quinolones AdvReac Intermediate Muscle Pain Verified 03/20/22 04:08 Cephalosporins AdvReac Mild Rash Verified 03/20/22 04:08 cilastatin [From Primaxin] AdvReac Mild Rash Verified 03/20/22 04:08 droperidol [From Inapsine] AdvReac Mild Rash Verified 03/20/22 04:08 imipenem [From Primaxin] AdvReac Mild Rash Verified 03/20/22 04:08 Labetalol [From Trandate] AdvReac Mild Rash Verified 03/20/22 04:08 meperidine [From Demerol] AdvReac Mild Rash Verified 03/20/22 04:08 metronidazole [From Flagyl] AdvReac Mild Rash Verified 03/20/22 04:08 pentazocine [From Talwin] AdvReac Mild Rash Verified 03/20/22 04:08 phenobarbital AdvReac Mild Rash Verified 03/20/22 04:08 propoxyphene AdvReac Mild Rash Verified 03/20/22 04:08 [From Darvocet-N] tobramycin AdvReac Mild Rash Verified 03/20/22 04:08 Physical Examination Vital Signs Vital signs: Temp Pulse Resp BP Pulse Ox 36.3 C 72 17 101/75 96 03/20/22 10:26 03/20/22 10:26 03/20/22 10:26 03/20/22 10:26 03/20/22 10:26 General Appearance General appearance: chronically ill, fatigue and frail EENT EENT: ATNC, PERRL and hearing intact Neck Neck: JVD and supple Respiratory Respiratory: rhonchi Cardiovascular Cardiology: no rub and edema Gastrointestinal Gastrointestinal: normoactive bowel sounds and no guarding Neurologic Neurologic: no asterixis and upper extremity weakness Musculoskeletal Musculoskeletal: no cyanosis and no clubbing Psychiatric Psychiatric: mood/affect appropriate Results Lab Results Result Diagrams: 03/20/22 04:56 03/20/22 04:56 Lab results: Most recent lab results Calcium 7.2 mg/dL (8.6-10.4) L 03/20/22 04:56 A/P Assessment and plan (1) Acute renal failure superimposed on stage 4 chronic kidney disease: Status: Acute (2) Secondary hyperparathyroidism of renal origin: Status: Chronic (3) Kidney transplant recipient: Status: Acute (4) Elevated brain natriuretic peptide (BNP) level: Status: Acute (5) Metabolic acidosis: Status: Acute Plan W/U of multiple medical problems as outline in HPI Narrative A/P Narrative: Failure to thrive Muscle weakness Small bowel narrowing but no vomiting => treated with IV ABx Marked elevation of proBNP Mixed metabolic acidosis (AN gap (+) and NAG) Suspect if you measured ABG there may be compensatory hyperventilation and resp acidosis PE on NOAC but not clear how she was Dx. ARF on CKD 4 21 yr old LRD RTx still on triple immunosuppression Plan of Treatment: 1. Check CPK and aldolase - if elevated stop statin 2. Reduce dose of mycophenolate 3. I might hold Tacrolimus and use stress dose HC for immunosuppression, check AM cortisol level, if low this argues for adrenal insufficiency. 4. Look for malignancies associated with longterm immunosuppression. 5. Adjust BP Rx to allow BP to increase 6. LVEF??? 7. Decrease dose of apixaban to 2.5 mg po BID 8. Calculate UAG, FeNa, Urine uric acid/creatinine ratio 9. Replace HCO3 10.Check for Hyperparathyroidism Time Spent With Patient Time: Total time spent is greater than 50% in coordination of care (as documented) at patient's floor/unit and/or counseling patient: Total time spent with greater than 50% in coordination of care (as documented) at patient's floor/unit and/or counseling patient:: 50 - 70 minutes
--- OUTSIDE RECORDS SUMMARY | 2022-03-20 14:37 | External Medical Summary | Encounter Summary ---
:1955 Author Care Team Providers Name Role Phone Turner Devine MD Primary Care Provider [phone] Leeanne Lemus [employer] Physician [phone] Saji Fortune MD OTHER [phone] Reason for Visit 1 WK FOLLOW-UP No [...] Hypertension) eating plan as recommended by the [place] [employer]. 2. A regular pattern of [...] please. Reminders Provider Appointments None recorded. Lab BMP, Serum or Plasma 01/20/2022 [facility] Only Pro BNP (Pro B-type 01/20/20[address] [facility] Natriuretic Peptide), Serum Only or Plasma Referral None recorded. Procedures None recorded. Surgeries None recorded. Imaging None recorded. Medications Name Start Date amoxicillin 500 mg-potassium clavulanate 125 mg tablet atorvastatin 80 mg tablet Take 1 tablet every day by oral route. Centrum Silver Women Take 1 tablet by mouth once daily cholecalciferol (vitamin D3) 125 mcg (5,000 unit) caps ule Take 1 capsule every day by oral route. clopidogrel 75 mg tablet Take 1 tablet every day by oral route. donepezil 10 mg tablet TAKE ONE TABLET BY MOUTH ONCE DAILY *PLEASE CONTACT O FFICE FOR PHYSICAL* Eliquis 5 mg tablet galantamine 4 mg tablet latanoprost 0.005 % eye drops INSTILL 1 DROP INTO AFFECTED EYE(S) BY OPHTHALMIC ROUTE ONCE DAILY INTHE EVENING levothyroxine 100 mcg tablet losartan 50 mg tablet TAKE ONE TABLET BY MOUTH DAILY magnesium metoprolol succinate ER 25 mg tablet,extended release 24 hr Take 3 tablets twice a day by oral route. metronidazole 500 mg tablet Miacalcin 200 unit/Actuation nasal soln Take 1 spray every day by nasal route. mycophenolate mofetil 250 mg capsule 08/17/2021 Take 3 capsules twice a day by oral route as directed . omeprazole 20 mg capsule,delayed release Take 1 capsule every day by oral route. ondansetron 4 mg disintegrating tablet prednisone 5 mg tablet Prolia 60 mg/mL subcutaneous syringe Inject 1 mL as needed by subcutaneous route. quetiapine 50 mg tablet TAKE 2 TABLETS BY MOUTH EVERY NIGHT AT BEDTIME Sleep Aid (diphenhydramine) Take as needed tacrolimus 1 mg capsule, immediate-release Take 3 capsules twice a day by oral route. torsemide 20 mg tablet Take 1 tablet every day by oral route. warfarin 5 mg tablet Take 1 tablet every day by oral route as directed. Notes: Reviewed medicationbott[facility] that patient brought in- [facility] 01/20/22 Some medications listed in Document: #[id number] could not be added to this patient's chart. Please review this document and add these medications to the patient's chart manually as needed. Medications Administered None recorded. Vitals Height Weight BMI Blood Pressure 5 ft 4 in 135.2 lbs 23.2 kg/m2 174/100 mm[Hg] Results Lab Results None recorded. Allergies Code Code System Name Reaction Severity Onset 2551 RxNorm Ciprofloxacin Other Severe 08/07/2020 75528 RxNorm Levofloxacin Other Severe 08/07/2020 723 RxNorm Amoxicillin Rash 2189 RxNorm Cefoxitin Rash 2231 RxNorm Cephalexin Rash Cephalosporins Rash 2540 RxNorm Cilastatin Rash 3648 RxNorm Droperidol Rash 5690 RxNorm Imipenem Rash 6185 RxNorm Labetalol Rash 6470 RxNorm Lorazepam Rash 6754 RxNorm Meperidine Rash 6922 RxNorm Metronidazole Rash 7804 RxNorm Oxycodone Rash 8001 RxNorm Pentazocine Rash 8134 RxNorm Phenobarbital Rash 8785 RxNorm Propoxyphene Rash 99973 RxNorm Tobramycin Rash Notes: Some allergies listed in Docume nts: #[id number], #[id number], [id number], [id number], [id number], [id number], [id number], [id number], #[id number] could not be added to this patient's chart. Please review these documents and add these allergies to the patient's [...] Do you feel stressed (tense, restless, nervous, [id number] or anxious, or unable to sleep at [...] Arteriosclerosis; Mixed Hyperlipidemia; Essential Hypertension Cata Sanders [employer]: [address] [place] [address], [place] [phone], Ph. 01/12/2022 Acute on Chronic Diastolic Heart Failure ; Coronary Arteriosclerosis; Mixed Hyperlipidemia; Essential Hypertension Cata Sanders, [employer]: [address] [place] [address], [place] [phone], Ph. 01/05/2022 Gout; Right Rotator Cuff Syndrome Turner Devine MD: [address] [facility], [address], [place] [address], Ph. History of Present Illness Note: <div>Wendy [...] </div><div>
</div><div>Labs: </div><div>3/24</div><div>Na 142</div><div>K 3.9</div><div>Cr 2.6</div><div>LDL 57</div><div>BNP 94345</div>& lt;div>
</div><div>
</div><div>3/12 </div><div>Cr 2.4</div><div>Na 135</div><div>K 3.9</div><div>HCT 29.2</ div><div>HBG 8.9</div><div>
</div><div>
</div&g t;<div>3/8</div><div>bnp 32044</div><div>LDL 59</div><div>HDL 47</div><div>
</div><div>Cr 2.5</div><div>Na 139</div><div>K 4.8</div><div>BNP 34045</div><div>
</div><div>Cr 2.0 </div><div>HCT 29 </div><div>AST 14</div><div>
</div><div>
[...]
--- OUTSIDE RECORDS SUMMARY | 2022-03-20 14:37 | External Medical Summary | Encounter Summary ---
:1955 Author Care Team Providers Name Role Phone Turner Devine MD Primary Care Provider [phone] Leeanne Lemus [employer] Supervisor [phone] Saji Fortune MD OTHER [phone] Reason for Visit Hospital F/U Assessment and Plan Assessment Note I have personally reviewed the medicati on, allergies, medical, social, surgical, and family history of this patient today. Total time for visit today was 45 minute s. 30 minutes of this visit were spent in time with the patient. The additional minutes were spent in activities including chart preparation, review of previous c valdivia notes,review of notes from previous consultations, review of patient history luci in her recent ER visits and hospital care, obtaining history, examination, ordering of additional medications, chart ing, communication of results, and care coordination. 1. Acute pulmonary embolism on coumadin and plavix now because of t he recent cardiac stent. Will get weekly INR until stable, discus sed dual anticoagulation risks Discussed healing time for the PE and ex pectations for recovery 2. Pulmonary embolism on long-term anti coagulation therapy PT/INR - drawn at [facility] lab please PT/INR - drawn at [facility] lab please PT/INR - drawn at [facility] lab please PT/INR - drawn at [facility] lab please PT/INR - drawn at [facility] lab please PT/INR - drawn at [facility] lab please Discussion Note: None recorded.Patient educational handouts: No information available. Plan of Care Reminders Provider Appointments None recorded. Lab PT/INR 02/02/2022 [facility] Only PT/INR 02/09/2022 [facility] Only PT/INR 02/16/2022 [facility] Only PT/INR 02/23/2022 [facility] Only PT/INR 03/10/2022 [facility] Only PT/INR 03/17/2022 [facility] Only Referral None recorded. Procedures None recorded. [...] Notes: Reviewed medication[facility] that [facility]- [facility] 01/20/22 Some medications listed in Document: #[id number] could not be added to this patient's chart. Please review this document and add these medications to the patient's chart manually as needed. Medications Administered None recorded. Vitals Height Weight BMI Blood Pressure 5 ft 4 in 140 lbs 24 kg/m2 Results Lab Results Date Name Specimen Result Interpretation Description Value Range Status Address 02/07/2022 PT/INR Plasma High Prothrombin 47.7 11.9-14.5 [facility]: [address] , [place] Plasma High Inr 4.9 0.9-1.1 [facility]: [address] [facility] Allergies Code Code System Name Reaction Severity Onset 2551 RxNorm Ciprofloxacin Other Severe 08/07/2020 85128 RxNorm Levofloxacin Other Severe 08/07/2020 723 RxNorm Amoxicillin Rash 2189 RxNorm Cefoxitin Rash 2231 RxNorm Cephalexin Rash Cephalosporins Rash 2540 RxNorm Cilastatin Rash 3648 RxNorm Droperidol Rash 5690 RxNorm Imipenem Rash 6185 RxNorm Labetalol Rash 6470 RxNorm Lorazepam Rash 6754 RxNorm Meperidine Rash 6922 RxNorm Metronidazole Rash 7804 RxNorm Oxycodone Rash 8001 RxNorm Pentazocine Rash 8134 RxNorm Phenobarbital Rash 8785 RxNorm Propoxyphene Rash 23506 RxNorm Tobramycin Rash Notes: Some allergies listed in Docume nts: #[id number], #[id number], #[id number], #[id number], #[id number], #[id number], #[id number], #[id number], #[id number] could not be added to this patient's [...] Do you feel stressed (tense, restless, nervous, [id number] or anxious, or unable to sleep at [...] walking or climbing stairs?? Yes Past Encounters 02/02/2022 Acute Pulmonary Embolism; Pulmonary Embo lism on Long-term Anticoagulation Therapy Turner Devine MD: [address] [place] [address] [address], [place] [address], Ph. 01/20/2022 Acute on Chronic Diastolic Heart Failure ; Coronary Arteriosclerosis; Mixed Hyperlipidemia; Essential Hypertension Cata Sanders [employer]ALER: [address] [place] [address], [place] [address], Ph. 01/12/2022 Acute on Chronic Diastolic Heart Failure ; Coronary Arteriosclerosis; Mixed Hyperlipidemia; Essential Hypertension Cata Sanders [employer]ER: [address] [place] [address], [place] [address], Ph. 01/05/2022 Gout; Right Rotator Cuff Syndrome Turner Devine MD: [address] [facility], [address], [place] [address], Ph. History of Present Illness Note: <div>Had some persistent vertigo, balance issues, and went to the ER on January 22 where shehad extensive investigations searching for an intracranial or metabolic cause. Nothing new was found, but while undergoing this she was found to have bilateral pulmonary emboli. Additionally noted were old lacunar infarcts in multiple regions and vertebral artery stenosis of 60 and 80%. She was treated with heparin and warfarin and now is supposed to be set up for coumadin follow up. </div><div>She continues to improve little by little. Her energy is still compromised, and she has found she is sleeping a bit more than usual. She denies any dyspnea, bruising, excessive bleeding </div><div>She has a FU appt with Dr Jenkins arranged by the hospitalist. </div><div>In the weeks prior to this PE she had visited cardiology. At that time they noted the following: <b r></div><div>"Wendy and her return today. She has not been taking her medications as prescribed as her dementia is progressing and her was out of town last week.She apparently removes medications from her home box and then forgets why. It also appears that she has missed several doses of her tacrolimus and mycophenolate. We had a lengthy discussion again and she has agreed to obtaining in-home help during the week to ensure medications and meals are prepped. </div><div>She is denying chest pain, SOB, MAYORGA, fatigue, orthopnea, palpitations, and edema, but does c/o some dizziness. </div><div>
</div><div>Last Visit&lt ;/div><div>1. Torsemide 40 mg for the next week </div><div>2. F/U 1 week with BMP, BNP </div><div>3. Discussed the importance of medication compliance. It appears the pa sebastian's dementia may be progressing as she is forgetful regarding medicine. A lengthy discussion took place with her family member on utilizing a team-driven aproach to filling her pill box weekly as it again appears she is not taking all of he medications as prescribed. </div><div>
</div><div>CARDIAC HISTORY and MEDICAL HISTORY </div><div>Renal transplant -- creatinine 2.0 </div><div>Anterior STEMI 06/05/21. 2.5x38 and 2.5x28 Synergy &lt ;/div><div>Acute stent thrombosis 06/12/21. Aspiration thrombectomy. 2.5x8 Synergy to mid LAD </div><div>Groin complications -- required embolization. </div><div>Chronicsystolic and diastolic CHF. </div><div>
</div><div>Data review: < /div><div>I have personally reviewed </div><div>Cath 06/05/21. Acute anterior STEMI. </div><div>Echo EF 45%. PASP 60 </div><div>
</div><div>Labs: </div><div>3/24</div><div>Na 142</div><div>K 3.9</div><div>Cr 2.6</div><div>LDL 57</div><div>BNP 70867</div><div& gt;
</div><div>
</div><div>3/12</di v><div>Cr 2.4</div><div>Na 135</div><div>K 3.9</div><div>HCT 29.2</div><div>HBG 8.9</div><div>
</div><div>
</div&gt ;<div>3/8</div><div>bnp 39349</div><div>LDL 59</div><div>HDL 47&l t;/div><div>
</div><div>Cr 2.5</div><div>Na 139</div><div>K 4.8</div><div>BNP 16150</div><div>
</div><div>Cr 2.0 </div><div>HCT 29 </div><div>AST 14"</div><div&gt ;
</div><div>
</div>Review of Systems: ROS as noted in the HPI Review of Systems Comprehensive General Adult ROS Reported By: Patient Eyes: Eyes: wears glasses/contact lenses Musculoskeletal: Musculoskeletal: swelling in the extremities, difficulty walking Endocrine: Endocrine: fatigue Physical Exam Cardiology Exam Reported By: Patient Constitutional: General Appearance: appears stated age; BMI 24. Level of Distress: chronically ill Psychiatric: Mental Status: alert, normal affect. Orientation: oriented to time, place, and person. Insight: good judgment Eyes: Lids and Conjunctivae: anict kaelyn, no discharge, injected Neck: Neck: trachea midline. Carot id Arteries: no bruits. Jugular Veins: normal jugular venous pressu re Lungs: Respiratory Effort: unlabore d. Chest Exam: no chest wall tenderness. Auscultation: clear, no whee zing, no rales, no rhonchi Cardiovascular: Rate And Rhythm: regular. He art Sounds: normal S1, physiologically split S2, no rub, no gallop, no click. Systolic Murmur: not heard. Diastolic Murmur: not heard. Extremities: no edema Musculoskeletal: Inspection: no erythema Neurologic: Gait: uses cane. Sensation n o lateralizing focal sensory or motor deficits, normal speech Skin: Inspection and Palpation: wa rm and dry
--- OUTSIDE RECORDS SUMMARY | 2022-03-20 14:37 | External Medical Summary ---
:1955 Author Care Team Providers Name Role Phone ISAIAS HI MD Primary Care Provider [phone] CLEOPATRA MARTINEZ MD OTHER [phone] LEEANNE IVERSON ELEVATOR DISPATCHER-C Cooler Supervisor [phone] Allergies Code Code System Name Reaction Severity Status Onset 2551 RxNorm Ciprofloxacin Other Severe Active 2019 60306 RxNorm Levofloxacin Other Severe Active 020 723 [...] Rash Active 8785 RxNorm Propoxyphene Rash Active 88985 RxNorm Tobramycin Rash Active Notes: Some allergies listed in Docume nts: #[id number], #[id number], #[id number], #[id number], #[id number], #[id number], #[id number], #[id number], #[id number] could not be added to this patient's [...] tablet amoxicillin 500 mg-potassium clavulanate 125 mg Active Not available tablet amoxicillin 875 mg-potassium clavulanate 125 mg Completed 05/27/2021 tablet aspirin Completed 01/20/2022 81 mg daily atorvastatin 40 mg tablet Completed 2021 Take 1 tablet every day by oral route. atorvastatin 80 mg tablet Active Not av ailable azithromycin 250 mg tablet Completed 03/28 blood sugar diagnostic strips Completed DIRECTED Brilinta 60 mg tablet Completed 09/17/2021 Take 1.5 tablets twice a day by oral route as directed for 30 d ays. Brilinta 90 mg tablet Completed 07/21/2021 Take 1 tablet twice a day by oral route. calcitonin (salmon) 200 unit/actuation nasal Completed 08/17/2021 spray calcitriol 0.25 mcg capsule Completed 07/01 Centrum Silver Women Active Not availab le Take 1 tablet by mouth once daily cephalexin 500 mg capsule Completed 2021 cholecalciferol (vitamin D3) 125 mcg (5,000 unit) capsule Active Not available Take 1 capsule every day by oral route. ciprofloxacin 500 mg tablet Completed 10/31 clarithromycin 500 mg tablet Completed clindamycin HCl 300 mg capsule Completed 11/26/2021 clopidogrel 75 mg tablet Active Not [...] duloxetine 60 mg capsule,delayed release Completed 11/26/2021 Eliquis 5 mg tablet Active Not availabl e Florastor 250 mg capsule Completed 021 Take 1 capsule twice a day by oral route. fluoxetine 10 mg capsule Completed 020 galantamine 4 mg tablet Active Not avai lable hydralazine 50 mg tablet Completed 020 latanoprost (PF) 0.005 % eye drops Completed 07/01/2020 1 GTT LEFT EYE BEDTIME latanoprost 0.005 % eye drops Active No t available INSTILL 1 DROP INTO AFFECTED EYE(S) BY OPHTHALMIC ROUTE ONCE DAILY INTHE EVENING levofloxacin 250 mg tablet Completed 07/01 levothyroxine [...] 24 hr Acti ve Not available Take 3 tablets twice a day by oral route. metronidazole 500 mg tablet Active Not available Miacalcin 200 unit/Actuation nasal soln Active Not available Take 1 spray every day by nasal route. multivitamin Completed 11/26/2021 1 TAB ORAL DAILY mycophenolate mofetil 250 mg capsule Active 08/17/2021 Not available Take 3 capsules twice a day by oral route as directed. Namenda 10 mg tablet Completed 11/21/2019 Take 1 tablet(s) twice a day by oral route. nitrofurantoin monohydrate/macrocrystals 100 mg Completed 10/16/2020 capsule omeprazole 20 mg capsule,delayed release Active Not available ondansetron 4 mg disintegrating tablet Active Not available oxycodone-acetaminophen 10 mg-325 mg tablet Completed 07/01/2020 oxycodone-acetaminophen 5 mg-325 mg tablet Completed 09/10/2020 pamidronate 30 mg intravenous solution Completed 08/17/2021 Inject 90 mg every 3 months by intravenous route. potassium 99 mg tablet Completed 2 Take 1 tablet every day by oral route as directed. prednisone 1 mg tablet Completed 09/20/202 1 prednisone 20 mg tablet Completed 11/26/19 prednisone 5 mg tablet Active Not avail able Prolia 60 mg/mL subcutaneous syringe Active Not available Inject 1 mL as needed by subcutaneous route. promethazine 25 mg tablet Completed 2019 quetiapine 25 mg tablet Completed 09/10/20 quetiapine 50 mg tablet Active Not avai lable Sleep Aid (diphenhydramine) Active Not available Take as needed spironolactone 25 mg tablet Completed 08/30 Take 1 tablet every day by oral route. spironolactone 50 mg tablet Completed 07/01 tacrolimus 1 mg capsule, immediate-release Active Not available torsemide 20 mg tablet Active Not avail able tramadol 50 mg tablet Completed 07/01/2020 Vitamin D3 125 mcg (5,000 unit) tablet Completed 07/01/2020 Take 1 tablet every day by oral route. warfarin 5 mg tablet Active Not availab le Xifaxan 550 mg tablet Completed 04/27/2021 Notes: Reviewed medicationbottles that patient brought in- [facility] 01/20/22 Some medications listed in Document: #[id number] could not be added to this patient's [...] not cynthia ilable 09/16/2020 Oximetry Monitoring Overnight [facility] [address] [place] [address] (Work Place) 10/04/2020 Polysomnogram, Split Night [facility] [address] [facility] [address] [place] [address] (Work Place) 04/27/2021 CT, Arthrogram, Shoulder [facility] (Imaging) [address] [place] [address] (Work Place) 07/19/2021 Electrocardiogram [facility] [address] [place] [address] (Work Place) Results Lab Results Date Name Specimen Result Interpretation Description Value Range Status Address 02/14/2022 PT/INR Plasma High Prothrombin 17.2 11.9-14.5 Ruby l [facility]ologists[facility] Time sec sec Regional L [facility]: [address] [facility] , [place] Plasma High Inr 1.3 0.9-1.1 Final Pathologi sts' Regional L ab: [address] [facility] , [place] 02/07/2022 PT/INR Plasma High Prothrombin 47.7 11.9-14.5 Ruby [facility] Time sec sec Regional L ab: [address] [facility] , [place] Plasma High Inr 4.9 0.9-1.1 Final Pathologi sts' Regional L ab: [address] [facility] , [place] 01/20/2022 Pro BNP Plasma High Probnp 09924. <125.0 Final Path ologists' (Pro 0 pg/mL Regional L ab: B-type pg/mL [address] [facility] , [place] Peptide), Serum or Plasma 01/20/2022 BMP, Plasma Glucose,rando 90 70-105 Final Pathologists' Serum or m mg/dL mg/dL Regional Lab: Plasma [address] [facility] , [place] Plasma High Blood Urea 54 8-23 mg/dL Final P athologists' Nitrogen mg/dL Regional Lab: [address] [facility] , [place] Plasma High Creatinine 2.6 0.6-1.1 Final Path ologists' mg/dL mg/dL Regional L ab: [address] [facility] , [place] Plasma Sodium 142 133-145 Final Patholog ists' mmol/L mmol/L Regional L ab: [address] [facility] , [place] Plasma Potassium 3.9 3.3-5.1 Final Patho logists' mmol/L mmol/L Regional L ab: [address] [facility] , [place] Plasma Chloride 106 96-108 Final Patholo gists' mmol/L mmol/L Regional L ab: [address] [facility] , [place] Plasma Low Carbon 19 22-30 Final Pathologi sts' Dioxide mmol/L mmol/L Regional Lab: [address] [facility] , [place] Plasma High Anion Gap 17.0 8.0-16.0 Final Path ologists' Regional L ab: [address] [facility] , [place] Plasma Low Calcium 7.0 8.6-10.4 Final Pathol ogists' mg/dL mg/dL Regional L ab: [address] [facility] , [place] Plasma Glomerular 18 Final Patho logists' Filtration Region al Lab: Rate [address] [facility] , [place] 01/20/2022 Lipid Plasma Cholesterol 123 <200 mg/dL Fin al Pathologists' Panel, mg/dL Regional L ab: Blood [address] [facility] , [place] Plasma Triglycerides 76 <150 mg/dL Final Pathologists' mg/dL Regional L ab: [address] , [place] Plasma LDL,calculate 57 <100 mg/dL Final Pathologists' d mg/dL Regional L [facility]: [address] [facility] , [place] Plasma HDL 51 >40 mg/dL Final Patholo gists' Cholesterol mg/dL Regio nal Lab: [address] [facility] , [place] Plasma non-HDL 72 <130 mg/dL Final Path ologists' Cholesterol mg/dL Regio nal Lab: [address] [facility] , [place] 01/04/2022 Pro BNP Plasma High Probnp 23680. <125.0 Final Path ologists' (Pro 0 pg/mL Regional L ab: B-type pg/mL [address] [facility] , Natriuret [facility] n ic Peptide), Serum or Plasma 01/04/2022 CMP, Plasma Glucose,rando 100 70-105 Final Pathologists' Serum or m mg/dL mg/dL Regional Lab: Plasma [address] [facility] , [place] Plasma High Blood Urea 44 8-23 mg/dL Final P athologists' Nitrogen mg/dL Regional Lab: [address] [facility] , [place] Plasma High Creatinine 2.3 0.6-1.1 Final Path ologists' mg/dL mg/dL Regional L ab: [address] , [place] Plasma Sodium 135 133-145 Final Patholog ists' mmol/L mmol/L Regional L ab: [address] , [place] Plasma Potassium 4.1 3.3-5.1 Final Patho logists' mmol/L mmol/L Regional L ab: [address] [facility] , [place] Plasma Chloride 106 96-108 Final Patholo gists' mmol/L mmol/L Regional L ab: [address] [facility] , [place] Plasma Low Carbon 19 22-30 Final Pathologi sts' Dioxide mmol/L mmol/L Regional Lab: [address] [facility] , [place] Plasma Anion Gap 10.0 8.0-16.0 Final Path ologists' Regional L ab: [address] , [place] Plasma Calcium 9.8 8.6-10.4 Final Pathol ogists' mg/dL mg/dL Regional L ab: [address] , [place] Plasma Total Protein 6.5 5.9-8.4 Final P athologists' gm/dL gm/dL Regional L ab: [address] [facility] , [place] Plasma Albumin 3.4 3.2-5.2 Final Patholo gists' gm/dL gm/dL Regional L ab: [address] [facility] , [place] Plasma Globulin 3.1 2.2-3.7 Final Pathol ogists' gm/dL gm/dL Regional L ab: [address] [facility] , [place] Plasma Alb/glob 1.1 1.0-2.3 Final Pathol ogists' Ratio Regional L ab: [address] [facility] , [place] Plasma Bilirubin,tot 0.2 0.1-1.0 Final P athologists' al mg/dL mg/dL Regional L ab: [address] [facility] , [place] Plasma AST/SGOT 8 U/L <32 U/L Final Pathol ogists' Regional L ab: [address] [facility] , [place] Plasma ALT/SGPT <5 U/L <40 U/L Final Pathol ogists' Regional L ab: [address] [facility] , [place] Plasma Alkaline 64 U/L 39-117 U/L Final Pat hologists' Phosphatase Regio nal Lab: [address] [facility] , [place] Plasma Glomerular 21 Final Patho logists' Filtration Region al Lab: Rate [address] [facility] , [place] 01/04/2022 Lipid Plasma Cholesterol 123 <200 mg/dL Fin al Pathologists' Panel, mg/dL Regional L ab: Blood [address] [facility] , [place] Plasma Triglycerides 89 <150 mg/dL Final Pathologists' mg/dL Regional L ab: [address] [facility] , [place] Plasma LDL,calculate 59 <100 mg/dL Final Pathologists' d mg/dL Regional L ab: [address] [facility] , [place] Plasma HDL 47 >40 mg/dL Final Patholo gists' Cholesterol mg/dL Regio nal Lab: [address] [facility] , [place] Plasma non-HDL 76 <130 mg/dL Final Path ologists' Cholesterol mg/dL Regio nal Lab: [address] [facility] , [place] 11/12/2021 BMP, Plasma Glucose,rando 103 70-105 Final Pathologists' Serum or m mg/dL mg/dL Regional Lab: Plasma [address] [facility] , [place] Plasma High Blood Urea 57 8-23 mg/dL Final P athologists' Nitrogen mg/dL Regional Lab: [address] [place] [address] Plasma High Creatinine 2.5 0.6-1.1 Final Path ologists' mg/dL mg/dL Regional L ab: [address] [facility] , [place] Plasma Sodium 139 133-145 Final Patholog ists' mmol/L mmol/L Regional L ab: [address] , [place] Plasma Potassium 4.8 3.3-5.1 Final Patho logists' mmol/L mmol/L Regional L ab: [address] , [place] Plasma Chloride 106 96-108 Final Patholo gists' mmol/L mmol/L Regional L ab: [address] , [place] Plasma Carbon 22 22-30 Final Pathologi sts' Dioxide mmol/L mmol/L Regional Lab: [address] , [place] Plasma Anion Gap 11.0 8.0-16.0 Final Path ologists' Regional L ab: [address] , [place] Plasma High Calcium 10.6 8.6-10.4 Final Pathol ogists' mg/dL mg/dL Regional L ab: [address] , [place] Plasma Glomerular 19 Final Patho logists' Filtration Region al Lab: Rate [address] , [place] 11/12/2021 Pro BNP Not High Nt Probnp 01634 Final P Hospital - (Pro Specified pg/mL [facility] [place] Only: B-type [address] , [place]t [place] n ic Peptide), Serum or Plasma 09/01/2021 Pro BNP Plasma High Probnp 37313. <125.0 Final Path ologists' (Pro 0 pg/mL Regional L ab: B-type pg/mL [address] , [place] n ic Peptide), Serum or Plasma 09/01/2021 BMP, Plasma High Glucose,rando 112 70-105 Final Pathologists' Serum or m mg/dL mg/dL Regional Lab: Plasma [address] , [place] Plasma High Blood Urea 31 8-23 mg/dL Final P athologists' Nitrogen mg/dL Regional Lab: [address] , [place] Plasma High Creatinine 1.9 0.6-1.1 Final Path ologists' mg/dL mg/dL Regional L ab: [address] , [place] Plasma Sodium 141 133-145 Final Patholog ists' mmol/L mmol/L Regional L ab: [address] , [place] Plasma Potassium 4.7 3.3-5.1 Final Patho logists' mmol/L mmol/L Regional L ab: [address] , [place] Plasma High Chloride 109 96-108 Final Patholo gists' mmol/L mmol/L Regional L ab: [address] , [place] Plasma Low Carbon 20 22-30 Final Pathologi sts' Dioxide mmol/L mmol/L Regional Lab: [address] [facility] , [place] Plasma Anion Gap 12.0 8.0-16.0 Final Path ologists' Regional L ab: [address] [facility] , [place] Plasma Low Calcium 7.8 8.6-10.4 Final Pathol ogists' mg/dL mg/dL Regional L ab: [address] [facility] , [place] Plasma Glomerular 27 Final Patho logists' Filtration Region al Lab: Rate [address] [facility] , [place] 01/08/2020 Dhea, No observation Pathologists' Serum recorded. Regiona l Lab: [address] [facility] , [place] 12/12/2019 Dhea-sulf DHEA-S DHEA-S 42.82 9.40-246 Final Pathologists' ate, (dehydroe ug/dL ug/dL Regiona l Lab: Serum piandrost [address] [facility], erone [place] sulfate) 11/28/2019 DHEA Serum or Dehydroepiand 171 () NG/dL F inal Pathologists' (Dehydrop plasma rosterone NG/dL Felicitas onal Lab: iandroste unconjuga [address] [facility], abby) [facility] dehydroep iandroste abby (DHEA) measureme nt(mass/v olume) Serum or Results Pathol ogists' plasma Regional L ab: unconjuga [address] [facility], [facility] dehydroep iandroste abby (DHEA) measureme nt(mass/v olume) Past Encounters 02/02/2022 Acute Pulmonary Embolism; Pulmonary Embo lism on Long-term Anticoagulation Therapy Isaias Hi MD: [address], [place] [phone], Ph. 01/20/2022 Acute on Chronic Diastolic Heart Failure ; Coronary Arteriosclerosis; Mixed Hyperlipidemia; Essential Hypertension Cata Sanders, ELEVATOR DISPATCHER: [address] [place] [address], [place] [phone], Ph. 01/12/2022 Acute on Chronic Diastolic Heart Failure ; Coronary Arteriosclerosis; Mixed Hyperlipidemia; Essential Hypertension Cata Sanders ELEVATOR DISPATCHER: [address] [place] [address], [place] [phone], Ph. 01/05/2022 Gout; Right Rotator Cuff Syndrome Isaias Hi MD: [address] [place] [address], [place] [phone], Ph. 11/29/2021 Full Thickness Rotator Cuff Tear Isaias Hi MD: [address] [place] [address], [place] [phone], Ph. 11/26/2021 Acute on Chronic Diastolic Heart Failure ; Coronary Arteriosclerosis; Mixed Hyperlipidemia; Essential Hypertension Cata Sanders, ELEVATOR DISPATCHER: [address] [place] [address], [place] [phone], Ph. 09/01/2021 Acute on Chronic Diastolic Heart Failure ; Coronary Arteriosclerosis; Mixed Hyperlipidemia; Essential Hypertension Anupam Burdick MD: [address] [place] [address] , [place] [phone], Ph. 08/17/2021 Acute on Chronic Diastolic Heart Failure ; Chronic Diastolic Heart Failure; Coronary Arteriosclerosis; Mixed Hyperlipidemia; Essential Hypertension Anupam Burdick MD: [address] [place] [address] , [place] [phone], Ph. 07/19/[address] Segment Elevation Myocardial In farction; Aortic Valve Sclerosis; Essential Hypertension; Hyperlipidemia; Left Ventricular Systolic Dysfunction; Stented Coronary Artery; Coronary Arteriosclerosis; Chronic Kidney Disease Stage 4 Leeanne Iverson, ELEVATOR DISPATCHER: [address] [place] [address], [place] [phone], Ph. 06/09/[address] Segment Elevation Myocardial In farction Isaias Hi MD: [address] [place] [address], [place] [phone], Ph. 05/27/2021 Diverticulitis of Colon Isaias Hi MD: [address] [place] [address], [place] [phone], Ph. 04/27/2021 Supraspinatus Tear Isaias Hi MD: [address] [place] [address], [place] [phone], Ph. 02/23/2021 Antibiotic-associated Diarrhea Isaias Hi MD: [address] [place] [address], [place] [phone], Ph. 02/03/2021 Intermittent Confusion Isaias Hi MD: [address] [facility], [address], [place] [address], Ph. 10/16/2020 Obstructive Sleep Apnea of Adult; Chroni c Depression; Essential Hypertension Isaias Hi MD: [address] [facility], [address], [place] [phone], Ph. Social History Tobacco Smoking Status Never [...] Hypertension) eating plan as recommended by the [place] [employer]. 2. A regular pattern of [...] Hypertension) eating plan as recommended by the [place] [employer]. 2. A regular pattern of [...] Hypertension) eating plan as recommended by the [place] [employer]. 2. A regular pattern of [...] Surgeries None recorded. Imaging None recorded. Vitals 02/02/2022 04:30PM Hospital Follow Up Height Weight BMI Blood Pressure 5 ft 4 in 140 lbs 24 kg/m2 01/20/2022 03:15PM Cata- Established Short Height Weight [...] lbs 22.3 kg/m2 132/86 mm[Hg] 11/26/2021 10:00AM [facility] Cardio Patient HF Height Weight BMI Blood [...]
--- OUTSIDE RECORDS SUMMARY | 2022-03-20 14:37 | External Medical Summary | Encounter Summary ---
:1955 Author Care Team Providers Name Role Phone Turner Devine MD Primary Care Provider [phone] Leeanne Lemus COAT HANGER SHAPER MACHINE OPERATOR-C Silk Printer [phone] Saji Fortune MD OTHER [phone] Reason for Visit Shoulder Pain Assessment and Plan Assessment Note I have personally reviewed the medicati on, allergies, medical, social, surgical, and family history of this patient today. I also read Dr Goddard's notes and recommendations, as well as Dr Burdick/Diana Hunt [facility] assessment of her cardiovascula r status. [...] Care Reminders Provider Appointments None recorded. Lab None [...] Notes: Reviewed medicationbottles that patient brought in- [facility] 01/20/22 Some medications listed in Document: #[id number] could not be added to this patient's chart. Please review this document and add these medications to the patient's chart manually as needed. Medications Administered None recorded. Vitals Height Weight BMI Blood Pressure 5 ft 4 in 140 lbs 24 kg/m2 138/84 mm[Hg] Results Lab Results None recorded. Allergies Code Code System Name Reaction Severity Onset 2551 RxNorm Ciprofloxacin Other Severe 08/07/2020 38218 RxNorm Levofloxacin Other Severe 08/07/2020 723 RxNorm Amoxicillin Rash 2189 RxNorm Cefoxitin Rash 2231 RxNorm Cephalexin Rash Cephalosporins Rash 2540 RxNorm Cilastatin Rash 3648 RxNorm Droperidol Rash 5690 RxNorm Imipenem Rash 6185 RxNorm Labetalol Rash 6470 RxNorm Lorazepam Rash 6754 RxNorm Meperidine Rash 6922 RxNorm Metronidazole Rash 7804 RxNorm Oxycodone Rash 8001 RxNorm Pentazocine Rash 8134 RxNorm Phenobarbital Rash 8785 RxNorm Propoxyphene Rash 26985 RxNorm Tobramycin Rash Notes: Some allergies listed in Docume nts: #[id number], #[id number], #[id number], #[id number], #[id number], #[id number], #[id number], #[id number], #[id number] could not be added to this patient's [...] Do you feel stressed (tense, restless, nervous, [id number] or anxious, or unable to sleep at [...] Right Rotator Cuff Syndrome Turner Devine MD: [address] [place] [address], [address], [place] [phone], Ph. History of Present Illness Note: <div>Wanted [...] swelling, erythema Peripheral Pulses: Radial Pulse: normal. Early Childhood Education Coordinator ior Tibialis Pulse normal
--- OUTSIDE RECORDS SUMMARY | 2022-03-20 14:37 | External Medical Summary | Encounter Summary ---
:1955 Author Care Team Providers Name Role Phone Turner Devine MD Primary Care Provider [phone] Leeanne Lemus CLINICAL LABORATORY DIRECTOR-C Automatic Drilling Machine Operator [phone] Saji Fortune MD OTHER [phone] Reason for Visit edema; 2 MTH FOLLOW-UP [...] Hypertension) eating plan as recommended by the [place] [employer]. 2. A regular pattern of [...] None recorded. Lab BMP, Serum or Plasma 01/12/2022 [facility] Only Pro BNP (Pro B-type 01/12/20[facility] Natriuretic Peptide), Serum Only or Plasma BMP, Serum or Plasma 01/16/2022 [facility] Only Pro BNP (Pro B-type 01/16/[facility] Natriuretic Peptide), Serum Only or Plasma Lipid Panel, Blood 01/16/[facility] Only Referral None recorded. Procedures None recorded. [...] Notes: Reviewed medicationbottles that patient brought in- [facility] 01/20/22 Some medications listed in Document: #[id number] could not be added to this patient's chart. Please review this document and add these medications to the patient's chart manually as needed. Medications Administered None recorded. Vitals Height Weight BMI Blood Pressure 5 ft 4 in 137.4 lbs 23.6 kg/m2 168/92 mm[Hg] Results Lab Results Date Name Specimen Result Interpretation Description Value Range Status Address 01/20/2022 Pro BNP (Pro Plasma High Probnp 13025.0 <125.0 Final Pathologists' B-type pg/mL pg/mL [facility]: Natriuretic [address], Peptide), Fidel n Serum or Plasma 01/20/2022 BMP, Serum Plasma Glucose,rando 90 mg/dL 70-105 Final Pathologists' or Plasma m mg/dL Region[facility] l Lab: [address] [facility] Plasma High Blood Urea 54 mg/dL 8-23 Final Pat hologists' Nitrogen mg/dL Regional Lab: [address] [facility] Plasma High Creatinine 2.6 0.6-1.1 Final Path ologists' mg/dL mg/dL Regional L [facility]: [address] , [place] Plasma Sodium 142 133-145 Final Patholog ists' mmol/L mmol/L Regional L ab: [address] [place] [address] Plasma Potassium 3.9 3.3-5.1 Final Patho logists' mmol/L mmol/L Regional L [facility]: [address] [place] [address] Plasma Chloride 106 96-108 Final Patholo gists' mmol/L mmol/L Regional L ab: [address] [place] [address] Plasma Low Carbon 19 22-30 Final Pathologi sts' Dioxide mmol/L mmol/L Regional Lab: [address] [place] [address] Plasma High Anion Gap 17.0 8.0-16. Final Patho logists' 0 Regional L ab: [address] [place] [address] Plasma Low Calcium 7.0 8.6-10. Final Patholo gists' mg/dL 4 mg/dL Regional Lab: [address] [place] [address] Plasma Glomerular 18 Final Patho logists' Filtration Region al Lab: Rate [address] [place] [address] 01/20/2022 Lipid Panel, Plasma Cholesterol 123 <200 F inal Pathologists' Blood mg/dL mg/dL [facility]: [address] [place] [address] Plasma Triglycerides 76 mg/dL <150 Final Pathologists' mg/dL Regional L [facility]: [address] [place] [address] Plasma LDL,calculate 57 mg/dL <100 Final Pathologists' d mg/dL [facility]: [address] [place] [address] Plasma HDL 51 mg/dL >40 Final Patholog ists' Cholesterol mg/dL Regio n[facility] Lab: [address] [place] [address] Plasma non-HDL 72 mg/dL <130 Final Pathol ogists' Cholesterol mg/dL [facility] Lab: [address] [place] [address] Allergies Code Code System Name Reaction Severity Onset 2551 RxNorm Ciprofloxacin Other Severe 08/07/2020 26342 RxNorm Levofloxacin Other Severe 08/07/2020 723 RxNorm Amoxicillin Rash 2189 RxNorm Cefoxitin Rash 2231 RxNorm Cephalexin Rash Cephalosporins Rash 2540 RxNorm Cilastatin Rash 3648 RxNorm Droperidol Rash 5690 RxNorm Imipenem Rash 6185 RxNorm Labetalol Rash 6470 RxNorm Lorazepam Rash 6754 RxNorm Meperidine Rash 6922 RxNorm Metronidazole Rash 7804 RxNorm Oxycodone Rash 8001 RxNorm Pentazocine Rash 8134 RxNorm Phenobarbital Rash 8785 RxNorm Propoxyphene Rash 63787 RxNorm Tobramycin Rash Notes: Some allergies listed in Docume nts: #[id number], #[id number], #[id number], #[id number], #[id number], #[id number], #[id number], #[id number], #[id number] could not be added to this patient's [...] processed blood or body fluids from an Ebola virus disease patient without appropriate PPE? [...] Do you feel stressed (tense, restless, nervous, [id number] or anxious, or unable to sleep at [...] Arteriosclerosis; Mixed Hyperlipidemia; Essential Hypertension Cata Sanders NP: [address] [place] [address], [place] [address], Ph. 01/05/2022 Gout; Right Rotator Cuff Syndrome Turner Devine MD: [address] [place] [address] [address], [place] [address], Ph. History of Present Illness Note: <div>Wendy [...] 3.9</div><div>HCT 29.2</div><div>HBG 8.9 </div><div>
</div><div>
</div>&l t;div>3/8</div><div>bnp 11642</div><div>LDL 59</div><div>HDL 47</div><div& gt;
</div><div>Cr 2.5</div><div>Na 139</div><div>K 4.8</div><div>BNP 67445</div><div>
</div><div>Cr 2.0 </div ><div>HCT 29 </div><div>AST 14</div><div>
[...]
--- OUTSIDE RECORDS SUMMARY | 2022-03-20 14:37 | External Medical Summary | Continuity of Care Document ---
:1955 Author Organization [facility] Address [address] [place] [address] Phone Care Team Providers Name Role Phone Capo GARG Unavailable Unavailable Allergies, Adverse Reactions, Alerts Substance Reaction Status Criticality imipenem Active No Information CILASTATIN SODIUM Active No Information PROPOXYPHENE NAPSYLATE Active No Inform ation acetaminophen Active No Information OXYCODONE HCL Active No Information LABETALOL HCL Active No Information droperidol Active No Information PENTAZOCINE LACTATE Active No Informati on amoxicillin Active No Information metronidazole Active No Information tobramycin Active No Information CEPHALEXIN MONOHYDRATE Active No Inform ation cefoxitin Active No Information Cephalosporins Active No Information PRESERVATIVE FREE Active No Information MEPERIDINE HCL Active No Information phenobarbital Active No Information lorazepam Active No Information Medications Medication Instructions Dosage Effective Dates (start - Status Comments stop) Diltiazem SR 120 mg 12 hr - Active Cap Hectorol 2.5 mcg Cap - Active Aspirin Low-Strength 81 - Active mg Tab, Delayed Release Micardis 80 mg Tab - Active Prograf 1 mg Cap - Active CellCept 500 mg Tab - Active Levoxyl 100 mcg Tab - Active Omeprazole 20 mg Tab, - Active Delayed Release Prednisone 5 mg Tab - Active Miacalcin 200 - Active unit/Actuation Nasal [place] Aerosol Procedures Procedure Date Discharge Hospital Up To 30 Min Hosp/Initial Care L2 Comp Audiometry Eval Est Patient Level 3 Exam Comp Audiometry Eval Tympanometry Acoustic Reflex Testing Acoustic Reflex Decay Test New Patient Level 3 Exam Advance Directives Directive Yes / No Effective Date File Name No Information Encounters Encounter Practice Location Reason(s) Diagnoses Date Provider Provide rs Description For Visit Copied on Encounter Discharge [facility] No Information [facility]. PO Provider: To [facility] Clinic, [facility] [address], [place] [address] [place] [facility] [place] [address], [place], , , [facility], [id number] [id number] [place], , [place]. [place] [id number] tel:[phone], , [place] [id number] [facility] tel:[address], [id number] [place], [address]. tel:[phone] Hosp/Initial [facility] No Information [facility] L2 E[facility] Heart M. [address] Box Provider: [facility], [facility] [address] [facility] [place], , , [facility], [id number] [address] [place], , [place] [id number] tel:[phone], , [place] [id number] [facility] tel:[address], [id number] [place], [address]. tel:[phone] Est Patient [facility] Oct-2 [place] Level 3 Exam ENT ENT HEARING LOSS, [address] [facility], P Clinic UNSPECIFIEDDEVIATED [address] [employer] [employer]CIAL REPRESENTATIVE [address], [facility], [facility], [id number] , [place]. , [place] tel:+50 tel:[phone] New Patient [facility] Sep-0 [place] Level 3 Exam ENT ENT HEARING LOSS, [address] [facility], P Clinic UNSPECIFIEDDEVIATED [address] SEPTUMNEURAL HEARING [address], [address], [place] [facility], [facility] [place], [id number] , [place]. , [place] tel:+50 tel:[phone] Family History Family Member Type Diagnosis Age At Onset No Information Payers Payer name Insurance type Covered alliance party ID Authorization(s ) Medicare Part B [id number] [employer] CI [id number] [employer] CI [id number] Social History Type Description Quantity Date Captured Comments Sex Female Smoking Status No Information Chief Complaint And Reason For Visit No Information Plan Of Treatment Date Type Action Status No Information History Of Present Illness Encounter Date Complaint History Of Present I llness No Information Instructions Date Instruction Additional Informati on No Information Assessments Type Assessment Date No Information
[2022-03-20] MEDS: ATORVASTATIN 40 MG TABLET PO SCH (21:24)
[2022-03-20] MEDS: MYCOPHENOLATE 250 MG CAPSULE PO SCH (21:24)
[2022-03-20] MEDS: METOPROLOL SUCCINATE 25 MG TAB.XL.24H PO SCH (21:24)
[2022-03-20] MEDS: DOCUSATE SODIUM 100 MG CAPSULE PO SCH (21:24)
[2022-03-20] MEDS: DONEPEZIL 10 MG TABLET PO SCH (21:25)
[2022-03-20] MEDS: TACROLIMUS 1 MG CAPSULE PO SCH (21:44)
[2022-03-21] MEDS: 0.9 % SODIUM CHLORIDE 10 ML SYRINGE IV SCH ×3 (05:57→21:20)
[2022-03-21] MEDS: metroNIDAZOLE 500 MG TABLET PO SCH ×3 (05:57→21:22)
[2022-03-21 06:33] LABS: Basophils # (Auto) 0.02 K/mcL (0.00-0.30); Basophils % (Auto) 0.2 % (0.0-2.0); Eosinophils # (Auto) 0 K/mcL (0.00-0.70); Eosinophils % (Auto) 0 % (0.0-7.0); Hematocrit 36.9 % (34.1-44.9); Hemoglobin 10.5 g/dL (11.2-15.7); Lymphocytes % (Auto) 12.8 % (15.5-49.0); Mean Cell Volume 102.5 fL (80.0-100.0); Mean Corpuscular HGB Conc 28.5 g/dL (31.0-36.0); Mean Platelet Volume 10.5 fL (7.4-10.4); Monocytes # (Auto) 0.66 K/mcL (0.10-0.90); Monocytes % (Auto) 7.1 % (1.0-12.0); Neutrophils % (Auto) 79.9 % (38.0-78.0); Platelet Count 266 K/mcL (140-440); Red Cell Distribution Width 17.9 % (11.5-14.5); WBC 9.4 K/mcL (4.5-11.0)
[2022-03-21 07:09] LABS: ALT/SGPT 51 U/L (<40); AST/SGOT 94 U/L (<32); Albumin 2.6 gm/dL (3.2-5.2); Alkaline Phosphatase 181 U/L (39-117); Bilirubin,Direct 0.3 mg/dL (<0.3); Bilirubin,Total 0.4 mg/dL (0.1-1.0); Blood Urea Nitrogen 49 mg/dL (8-23); Calcium 6.9 mg/dL (8.6-10.4); Carbon Dioxide 9 mmol/L (22-30); Chloride 104 mmol/L (96-108); Globulin 2.6 gm/dL (2.2-3.7); Glomerular Filtration Rate 10; Glucose 92 mg/dL (70-105); Lactate Dehydrogenase 341 U/L (135-225); Phosphorous 5.9 mg/dL (2.5-4.5); Triglycerides 128 mg/dL (<150); Uric Acid 7.6 mg/dL (2.5-8.0)
--- NOTE | 2022-03-21 07:45 | Nephrology Progress Note ---
SUBJECTIVE Subjective Patient information: Note initiated : 03/21/22 at 7:43 am Service Date, if different from initiated Date: [] Patient: Wendy Ellsworth 67 y/o F admitted on 03/20/22 for Weight Gain/Weakness. Chief Complaint: [can't stand up from toilet] Principal diagnosis: failure to thrive Interval history: Vital Signs Temp Pulse Pulse Pulse Resp BP BP 03/21/22 07:24 37.2 C 18 141/100 03/21/22 04:00 36.3 C 85 20 103/69 03/21/22 00:00 36.1 C 92 H 22 101/68 03/20/22 20:00 36.4 C 93 H 24 H 117/81 03/20/22 15:43 36.4 C 90 20 111/74 03/20/22 14:22 36.6 C 76 16 113/74 03/20/22 10:26 36.3 C 72 17 101/75 03/20/22 10:15 36.3 C 72 17 101/75 03/20/22 09:32 98/74 03/20/22 09:16 108 H 103/79 03/20/22 09:01 85 99/76 03/20/22 08:46 87 101/76 03/20/22 08:44 86 03/20/22 08:31 96 H 91/80 03/20/22 08:16 89 94/71 03/20/22 08:01 90 96/73 03/20/22 07:46 93 H 98/78 Pulse Ox 03/21/22 07:24 100 03/21/22 04:00 100 03/21/22 00:00 95 03/20/22 20:00 99 03/20/22 15:43 97 03/20/22 14:22 94 03/20/22 10:26 96 03/20/22 10:15 96 03/20/22 09:32 03/20/22 09:16 100 03/20/22 09:01 99 03/20/22 08:46 99 03/20/22 08:44 99 03/20/22 08:31 98 03/20/22 08:16 97 03/20/22 08:01 99 03/20/22 07:46 98 Intake and Output 03/20/22 03/21/22 03/21/22 21:59 05:59 13:59 Intake Total 360 120 Balance 360 120 Intake: Oral 360 120 Other: Meal Dinner Percent of Meal Consumed 25% Feeding Ability Assist with Tray Set Up Urine Appearance Clear Urine Color Dark Yellow Bright Yellow Urine Odor Normal Stool Size Small Stool Color Brown Green Black Stool Consistency Soft Liquid Loose # Voids 25 # Bowel Movements 2 1 # of times incontinent of 1 Bowels Weight 76.402 kg Plan: Urine studies to complete w/u of metabolic acidosis UGI with SBFT to evaluate persistent CT finding of SBO...concern for GI lymphoma Awaiting AM cortisol and plan on Stress dose H/C and temporarly holding her immunosuppression, with GI sx needs less MMF Pertinent ROS: Much more dyspnic / tachypnic Additional PMFSH (Level 3 Only): N/A Constitutional Vitals: Vital Signs Temp Pulse Resp BP Pulse Ox 37.2 C 85 18 141/100 100 03/21/22 07:24 03/21/22 04:00 03/21/22 07:24 03/21/22 07:24 03/21/22 07:24 Period Temp Pulse Resp BP Sys/Reynoso Pulse Ox Last 24 Hr 36.1 C-37.2 C 72-108 16-24 91-141/68-100 94-100 Intake and Output 03/20/22 03/21/22 03/21/22 21:59 05:59 13:59 Intake Total 360 120 Balance 360 120 Weight 76.402 kg Intake & Output: Intake & Output 03/20/22 03/21/22 03/21/22 21:59 05:59 13:59 Intake Total 360 120 Balance 360 120 Weight 76.402 kg Intake: Oral 360 120 Other: Meal Dinner Percent of Meal Consumed 25% Feeding Ability Assist with Tray Set Up Urine Appearance Clear Urine Color Dark Yellow Bright Yellow Urine Odor Normal Stool Size Small Stool Color Brown Green Black Stool Consistency Soft Liquid Loose # Voids 25 # Bowel Movements 2 1 # of times incontinent of 1 Bowels General appearance: moderate distress Head Head exam: Present normocephalic Eye Eye exam: Present EOMI and PERRL Neck Neck exam: Absent lymphadenopathy Respiratory Respiratory exam: Present accessory muscle use and rhonchi Additional comments: tachypnea Cardiovascular Cardiovascular exam: Present JVD, +S1, +S2 and systolic murmur GI/Abdominal GI/Abdominal exam: Present diminished bowel sounds Extremities Exam Extremities exam: Present pedal edema Neurological Exam Neurological exam: Present alert and oriented X3 Psychiatric Psychiatric exam: Present anxious Skin Skin exam: Present dry and normal color A/P Assessment and plan (1) Metabolic acidosis: Status: Acute Comment: Etiology unclear but worsening w/o increase in lactic acid Start bicarb drip Still suspect inadequate renal HCO3 production and GI bicarb losses (2) SBO (small bowel obstruction): Status: Acute Comment: Persistent on 2 CTs separtated by 1 month SBFT may be helpful (3) Acute renal failure superimposed on stage 4 chronic kidney disease: Status: Acute Comment: Oliguria and worsening GFR ambivalent about HD...needs to speak with (4) Elevated brain natriuretic peptide (BNP) level: Status: Acute Comment: Echo with some AI and MR and ok LVEF of 50%. Small pericardial effusion is not causing tamponade. Plan 1. W/U of multiple medical problems as outline in HPI 2. Bicarb drip 3, Hydrocaorisone IV in place of FK-506 (vasoconstrictor in kidney & decreased BP = decreased renal perfusion) and MMF (has had lots of GI sx) 4. If she desirers HD, which will not improve GEETHA but may forestall for days to weeks, she will have to be transferred for higher level of care. As she has been hospitalized 4 times this month with progressive decline in heal and now hypotension, metabolic acidosis, ARF on CKD 4, I see no benefit from renal replacement therapy. Update to follow... Narrative A/P Narrative: Failure to thrive Muscle weakness Small bowel narrowing but no vomiting => treated with IV ABx Marked elevation of proBNP Mixed metabolic acidosis (AN gap (+) and NAG) Suspect if you measured ABG there may be compensatory hyperventilation and resp acidosis PE on NOAC but not clear how she was Dx. ARF on CKD 4 21 year LRD RTx still on triple immunosuppression Plan of Treatment: Ms. Ellsworth is a 67 year old F Presents to the ED with increased weakness, also reports weight gain of 10 pound weight gain past few days. Also says she is slurring her words more than usual and seems more confused. Patient was recently admitted to [facility] for recurrent diverticulitis and was discharged yesterday, was there for several days. Patient says she got home from [facility] yesterday afternoon and slept through the rest of the day and night and when she woke up she noticed how weak and tired she was, She needed help getting off of the commode. Patient was admitted here in early February for 4 days for Encephalopathy influenza A and volume depletion. She was also admitted here in January for 4 days for acute diverticulitis. She was admitted here in December for 4 days for pulmonary embolism. Last admission prior to that was April 2021 for diverticulitis, for 4 days. Creatinine was noted found to be elevated above baseline. Acidosis with bicarb quite low. Case was discussed with Dr. Moran will follow patient. Patient denies any chest pain coughing shortness of breath or fevers. Has mild nausea at times. Chest x-ray with cephalization. [facility] [address] [place], [place] [address]DOB: 1955 [address]Service Date:03/20/22 Admit Date: 03/20/22 [place], [place] [id number] # [id number] Nemesio Villanueva P. D.O. MR #: [id number] Internal Med History&PhysicalSigned HPI History of Present Illness Patient information: Note initiated : 03/20/22 at 8:45 am Service Date, if different from initiated Date: [] Patient: Wendy Ellsworth 67 y/o F admitted on for Weight Gain/Weakness. Chief Complaint: [] History of present illness: Ms. Ellsworth is a 67 year old F Presents to the ED with increased weakness, also reports weight gain of 10 pound weight gain past few days. Also says she is slurring her words more than usual and seems more confused. Patient was recently admitted to [facility] for recurrent diverticulitis and was discharged yesterday, was there for several days. Patient says she got home from [facility] yesterday afternoon and slept through the rest of the day and night and when she woke up she noticed how weak and tired she was, She needed help getting off of the commode. Patient was admitted here in early February for 4 days for Encephalopathy influenza A and volume depletion. She was also admitted here in January for 4 days for acute diverticulitis. She was admitted here in December for 4 days for pulmonary embolism. Last admission prior to that was April 2021 for diverticulitis, for 4 days. Creatinine was noted found to be elevated above baseline. Acidosis with bicarb quite low. Case was discussed with Dr. Moran will follow patient. Patient denies any chest pain coughing shortness of breath or fevers. Has mild nausea at times. Chest x-ray with cephalization. Review of Systems: Pertinent positives as above. Denies headache/fever/chills/vomiting/chest or abdominal pain/cough/dyspnea/diarrhea. Remaining 10 point review of system reviewed negative PFSH PFSH All Active Problems (Updated 03/20/22 @ 08:45 by Kamlesh Dinh MD) Nausea (Acute) Influenza A (Acute) Encephalopathy, metabolic (Acute) Leukocytosis (Acute) Fever (Acute) Hypomagnesemia (Acute) Weakness (Acute) Acute renal failure superimposed on stage 4 chronic kidney disease (Acute) Adynamic ileus (Acute) Vertigo (Acute) Gout flare (Acute) Pulmonary emboli (Acute) Stenosis of both vertebral arteries (Acute) Acute dyspnea (Acute) CHF (congestive heart failure) (Acute) CAD (coronary artery disease) (Acute) Atrial fibrillation (Acute) SBO (small bowel obstruction) (Acute) Diverticulitis of sigmoid colon (Acute) Nausea & vomiting (Acute) Matos's palsy (Acute) Diverticulitis (Acute) Constipation (Acute) Acute diverticulitis of intestine (Acute) Kidney transplant recipient (Acute) Bdnby-th-oxfmhkp kidney injury (Acute) Cardiomegaly (Acute) Elevated brain natriuretic peptide (BNP) level (Acute) Fall (Acute) Hematoma of parietal scalp (Acute) Depression with suicidal ideation (Acute) Acute UTI (urinary tract infection) (Acute) Ureterolithiasis (Acute) Compression fracture of T11 vertebra (Acute) Suicide attempt (Acute) Laceration (Acute) Acute UTI (Acute) Anemia (Acute) CRF (chronic renal failure) (Acute) Acute alteration in mental status (Acute) ST elevation (STEMI) myocardial infarction (Acute) Right shoulder pain (Acute) Acute right-sided thoracic back pain (Acute) Hypertension (Acute) Urinary frequency (Acute) Other snf (current) drug therapy (Chronic) Secondary hyperparathyroidism of renal origin (Chronic) Hyperlipidemia (Chronic) Glaucoma (Chronic) Macular degeneration (Chronic) Diverticulitis (Chronic) Idiopathic aseptic necrosis of femur (Chronic) Osteoporosis (Chronic) Vitamin D deficiency (Chronic) Anemia (Chronic) Essential hypertension (Chronic) Chronic kidney disease (CKD) (Chronic) Medical History Anemia Borderline hyperglycemia Chronic kidney disease (CKD) Stage 3 Dislocation, finger, metacarpophalangeal joint Diverticulitis Essential hypertension Glaucoma Hyperlipidemia Idiopathic aseptic necrosis of femur Macular degeneration Nausea & vomiting 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 Patient with chronic kidney insufficiency Osteoporosis Other snf (current) drug therapy Phlebitis and thrombophlebitis Secondary hyperparathyroidism of renal origin Urinary tract infection Vitamin D deficiency Surgical History 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 Family history of AICD (automatic internal cardiac defibrillator) (~1996) History of hand surgery (~08/2015) History of hysterectomy (~1978) History of intraocular lens implant February & March 1989 History of kidney transplant (07/27/00) History of knee surgery (~04/2009) History of orthopedic surgery (04/28/96) mohamud placement in right leg 04/28/96 @ [facility]; muscle relocation and skin grafts of right leg 04/29/96 @ [facility] History of parathyroidectomy (11/27/95) History of surgery fistula placement February 1993 @ [facility]; fistula declot; Graft placement upper right arm 10/1999 @ [facility] Kidney replaced by transplant Status post biopsy of kidney (~03/2007) Family History Father Hypertension CVA (cerebral vascular accident) Colon polyps needed surgical resection/partial colectomy Prostate cancer Hyperlipidemia Social History alcohol intake frequency: does not drink substance use type: does not use MEDS/ALLERGIES Home Medications and Allergies Home Medications Medication Instructions Recorded Confirmed Type omeprazole 20 mg capsule,delayed 20 mg PO DAILY 08/11/15 03/20/22 History release tacrolimus 1 mg capsule, 3 mg PO BID cap 02/05/16 03/20/22 History immediate-release (Prograf) prednisone 5 mg tablet 5 mg PO QDAY 06/07/17 03/20/22 History donepezil 10 mg tablet 10 mg PO HS 04/22/19 03/20/22 History mycophenolate mofetil 250 mg 750 mg PO BID 05/15/21 03/20/22 History capsule torsemide 20 mg PO DAILY 05/15/21 03/20/22 History cholecalciferol (vitamin D3) 125 125 mcg PO QDAY 01/22/22 03/20/22 History mcg (5,000 unit) capsule clopidogrel 75 mg tablet 1 tab PO QDAY 01/22/22 03/20/22 History denosumab 60 mg/mL subcutaneous 60 mg SUBCUT Q3M 01/22/22 03/20/22 Hist ory syringe (Prolia) levothyroxine 100 mcg tablet 1 tab PO QDAY 01/22/22 03/20/22 History metoprolol succinate 25 mg 25 mg PO BID 01/22/22 03/20/22 History tablet,extended release 24 hr magnesium oxide 480 mg PO QDAY 01/23/22 03/20/22 History apixaban 5 mg tablet (Eliquis) 5 mg PO BID #60 tab 02/16/22 03/20/22 Rx Centrum Silver Women 1 tab PO DAILY 02/19/22 03/20/22 History allopurinol 100 mg tablet 1 tab PO QDAY 02/19/22 03/20/22 History atorvastatin 80 mg tablet 1 tab PO QDAY 02/19/22 03/20/22 History ondansetron 4 mg disintegrating 4 mg PO Q8H PRN #9 tab 02/26/22 03/20/22 Rx tablet losartan 50 mg tablet 50 mg PO QDAY 02/27/22 03/20/22 History oseltamivir 30 mg capsule 30 mg PO DAILY #1 cap 03/01/22 03/20/22 Rx metronidazole 500 mg tablet 500 mg PO Q8H 03/20/22 03/20/22 History Allergies Allergy/AdvReac Type Severity Reaction Status Date / Time ciprofloxacin AdvReac Intermediate Cramping Verified 03/20/22 04:08 of the Muscles levofloxacin AdvReac Intermediate Other Verified 03/20/22 04:08 Quinolones AdvReac Intermediate Muscle Pain Verified 03/20/22 04:08 Cephalosporins AdvReac Mild Rash Verified 03/20/22 04:08 cilastatin [From Primaxin] AdvReac Mild Rash Verified 03/20/22 04:08 droperidol [From Inapsine] AdvReac Mild Rash Verified 03/20/22 04:08 imipenem [From Primaxin] AdvReac Mild Rash Verified 03/20/22 04:08 Labetalol [From Trandate] AdvReac Mild Rash Verified 03/20/22 04:08 meperidine [From Demerol] AdvReac Mild Rash Verified 03/20/22 04:08 metronidazole [From Flagyl] AdvReac Mild Rash Verified 03/20/22 04:08 pentazocine [From Talwin] AdvReac Mild Rash Verified 03/20/22 04:08 phenobarbital AdvReac Mild Rash Verified 03/20/22 04:08 propoxyphene AdvReac Mild Rash Verified 03/20/22 04:08 [From Darvocet-N] tobramycin AdvReac Mild Rash Verified 03/20/22 04:08 EXAM Constitutional Vitals: Temp Pulse Resp BP Pulse Ox 97.0 F 86 18 91/80 99 03/20/22 04:04 03/20/22 08:44 03/20/22 05:29 03/20/22 08:31 03/20/22 08:44 Exam: General: Alert, Awake, No acute Distress Eyes/N/T: EOMI, PERRL, JVD noted Head/Neck: neck supple, normocephalic atraumatic CV: RRR, 1-2/6 SM. normal s1/s2 Pulm: Clear b/l, no wheezing/rhonchi/rales Abd: soft, nontender, +BS x4 Ext: no clubbing/cyanosis, 1-2+ b/l LE edema Neuro: Alert, no focal deficits, moves all extremities, CN 2-12 grossly intact, symmetrical strength b/l upper/lower, sensations intact b/l upper/lower Skin: warm/dry DATA Data Completed and Pending Labs: Labs from last 24 hours 03/20/22 03/20/22 03/20/22 08:33 05:29 04:56 WBC RBC Hgb Hct MCV MCH MCHC RDW Plt Count MPV Neut % (Auto) Lymph % (Auto) [place] % (Auto) Eos % (Auto) Baso % (Auto) Lymph # (Auto) [place] # (Auto) Eos # (Auto) Baso # (Auto) Absolute Neutrophils Sodium 139 Potassium 5.0 Chloride 108 Carbon Dioxide 13 L Anion Gap 18.0 H BUN 47 H Creatinine 3.3 H GFR Calculation 14 Glucose 91 Calcium 7.2 L Total Bilirubin 0.4 AST 29 ALT 19 Alkaline Phosphatase 107 NT-Pro-B Natriuret Pep Pending Total Protein 5.3 L Albumin 2.8 L Globulin 2.5 Albumin/Globulin Ratio 1.1 Urine Color Lisandra Urine Appearance Cloudy A Urine pH 5.0 Ur Specific [place] 1.021 Urine Protein Negative Urine Glucose (UA) Negative Urine Ketones Negative Urine Occult Blood Negative Urine Nitrate Negative Urine Bilirubin Negative Urine Urobilinogen Negative Ur Leukocyte Esterase 25 A Urine RBC < 1 Urine WBC 5 H Ur Squamous Epith Cells 15 H Ur Transition Epith Cell 1 Amorphous Crystals Few A Urine Bacteria Few A Urine Mucus Few A Ur Culture Indicated? No 03/20/22 04:56 WBC 8.1 RBC 3.75 Hgb 10.6 L Hct 37.0 MCV 98.7 MCH 28.3 MCHC 28.6 L RDW 17.7 H Plt Count 270 MPV 10.3 Neut % (Auto) 81.4 H Lymph % (Auto) 13.6 L [place] % (Auto) 4.0 Eos % (Auto) 0.6 Baso % (Auto) 0.4 Lymph # (Auto) 1.10 L [place] # (Auto) 0.32 Eos # (Auto) 0.05 Baso # (Auto) 0.03 Absolute Neutrophils 6.56 Sodium Potassium Chloride Carbon Dioxide Anion Gap BUN Creatinine GFR Calculation Glucose Calcium Total Bilirubin AST ALT Alkaline Phosphatase NT-Pro-B Natriuret Pep Total Protein Albumin Globulin Albumin/Globulin Ratio Urine Color Urine Appearance Urine pH Ur Specific [place] Urine Protein Urine Glucose (UA) Urine Ketones Urine Occult Blood Urine Nitrate Urine Bilirubin Urine Urobilinogen Ur Leukocyte Esterase Urine RBC Urine WBC Ur Squamous Epith Cells Ur Transition Epith Cell Amorphous Crystals Urine Bacteria Urine Mucus Ur Culture Indicated? WADE on CKD IV Metabolic acidosis Renal transplant patient, follows with [facility]): -On immunosuppressive therapy [employer] Dr. flores following the patient closely and worried about intestinal lymphoma. On discussion with the patient about goal of care Stopped immunosuppressive medication due to worsening renal failure Started on high-dose steroids Started on bicarb infusion Stop Lasix On discussion with the patient and family regarding potential dialysis-patient mentioned " I do not want dialysis" The patient does not want dialysis then needs to consider hospice as she continues to be worsening renal failure and oliguric Recurrent intestinal infection and microperforation Patient was recently admitted Continue antibiotics ceftriaxone and Flagyl [employer] is worried about lymphoma detail chronic immunosuppression Hypotension Monitor blood pressure on IV hydration with bicarb drip We will hold the Lasix acute on chronic CHF & Volume Overload: Probably due to worsening renal failure On discussion with the family regarding goal of care and dialysis Acute encephalopathy Improving Check neuro status Possible early dementia on donepezil and seroquel Generalized weakness/deconditioning/Debility: Has increasing needs at home -poor functional status *Anemia,chronic: *h/o b/l PE in December: on eliquis *CAD w/stent last Summer: on statin/plavix/bb *h/o AICD/PPM: *HTN: Low BP on admit *Hypothyroidism: *GERD: *SLE: *h/o recurrent diverticulitis: recently admitted to [facility] DNR Time Spent With Patient Time: Total time spent is greater than 50% in coordination of care (as documented) at patient's floor/unit and/or counseling patient:
[2022-03-21] MEDS: LEVOTHYROXINE 100 MCG TABLET PO SCH (07:48)
[2022-03-21] MEDS: LACTOBACILLUS 1 CAPSULE PO SCH ×2 (08:37→21:22)
[2022-03-21] MEDS: APIXABAN 5 MG TABLET PO SCH ×3 (08:37→21:22)
[2022-03-21] MEDS: ALLOPURINOL 100 MG TABLET PO SCH (08:37)
[2022-03-21] MEDS: MYCOPHENOLATE 250 MG CAPSULE PO SCH (08:38)
[2022-03-21] MEDS: CLOPIDOGREL 75 MG TABLET PO SCH (08:38)
[2022-03-21] MEDS: METOPROLOL SUCCINATE 25 MG TAB.XL.24H PO SCH (08:38)
[2022-03-21] MEDS: DOCUSATE SODIUM 100 MG CAPSULE PO SCH ×2 (08:39→21:22)
[2022-03-21] MEDS: predniSONE 5 MG TABLET PO SCH (08:45)
[2022-03-21] MEDS: TACROLIMUS 1 MG CAPSULE PO SCH (08:46)
[2022-03-21] MEDS ORDERED: OMEPRAZOLE 20 MG CAPSULE PO SCH (09:00)
[2022-03-21 09:04] LABS: C-Reactive Protein 1.2 mg/dL (0.03-0.80)
[2022-03-21] MEDS: SODIUM BICARBONATE VIAL 150 MEQ in DEXTROSE 5% IN WATER 850 ML IV SCH ×3 (10:52→22:12)
[2022-03-21] MEDS: HYDROCORTISONE SOD SUCC 100 MG VIAL IV SCH ×3 (10:52→21:18)
--- NOTE | 2022-03-21 11:13 | Internal Med Progress Note ---
SUBJECTIVE Subjective Patient information: Note initiated : 03/21/22 at 11:08 am Service Date, if different from initiated Date: [] Patient: Wendy Ellsworth 67 y/o F admitted on 03/20/22 for Weight Gain/Weakness. Chief Complaint: [] Principal diagnosis: failure to thrive Interval history: 523 Patient creatinine worsened Remained oliguric Discussed with nephrology and talk to the patient and discussion Goal of care needs to be finalized with the patient and family regarding dialysis Started on bicarb infusion Constitutional Vitals: Vital Signs Temp Pulse Resp BP Pulse Ox 99 F 91 H 18 112/83 100 03/21/22 07:24 03/21/22 07:51 03/21/22 07:24 03/21/22 07:51 03/21/22 07:24 Period Temp Pulse Resp BP Sys/Reynoso Pulse Ox Last 24 Hr 97.0 F-99 F 76-93 16-24 101-141/68-100 94-100 Intake and Output 03/20/22 03/21/22 03/21/22 21:59 05:59 13:59 Intake Total 360 120 Balance 360 120 Weight 168 lb 7 oz Intake & Output: Intake & Output 03/20/22 03/21/22 03/21/22 21:59 05:59 13:59 Intake Total 360 120 Balance 360 120 Weight 168 lb 7 oz Intake: Oral 360 120 Other: Meal Dinner Percent of Meal Consumed 25% Feeding Ability Assist with Tray Set Up Urine Appearance Clear Urine Color Dark Yellow Bright Yellow Urine Odor Normal Stool Size Small Stool Color Brown Green Black Stool Consistency Soft Liquid Loose # Voids 25 # Bowel Movements 2 1 # of times incontinent of 1 Bowels General appearance: mild distress Head Head exam: Present atraumatic and normal inspection Eye Eye exam: Present EOMI; Absent conjunctival injection ENT ENT exam: Present mucous membranes dry and normal oropharynx Neck Neck exam: Present full ROM and normal inspection Respiratory Respiratory exam: Present rales; Absent accessory muscle use or wheezes Cardiovascular Cardiovascular exam: Present normal rate and rhythm GI/Abdominal GI/Abdominal exam: Present normal bowel sounds and soft; Absent distended Extremities Exam Extremities exam: Present full ROM and normal inspection Neurological Exam Neurological exam: Present alert, oriented X3 and reflexes normal; Absent motor sensory deficit Psychiatric Psychiatric exam: Present anxious and depressed; Absent agitated OBJ DATA Labs CBC & Chem 7: 03/21/22 05:33 03/21/22 05:33 Labs: Abnormal Lab Results 03/21/22 03/21/22 03/21/22 07:26 05:33 05:33 Hgb MCV MCHC RDW MPV Neut % (Auto) Lymph % (Auto) Lymph # (Auto) POC pH 7.24 L POC pCO2 19.7 L* POC HCO3 8.4 L POC Total CO2 9.0 L* POC ABG Base Excess -19.0 L Carbon Dioxide 9 L* Anion Gap 21.0 H BUN 49 H Creatinine 4.1 H Calcium 6.9 L Phosphorus 5.9 H* Direct Bilirubin 0.3 H GGT 203 H AST 94 H ALT 51 H Alkaline Phosphatase 181 H Lactate Dehydrogenase 341 H C-Reactive Protein 1.20 H NT-Pro-B Natriuret Pep Total Protein 5.2 L Albumin 2.6 L Urine Appearance Ur Leukocyte Esterase Urine WBC Ur Squamous Epith Cells Amorphous Crystals Urine Bacteria Urine Mucus 03/21/22 03/20/22 03/20/22 05:33 08:33 05:29 Hgb 10.5 L MCV 102.5 H MCHC 28.5 L RDW 17.9 H MPV 10.5 H Neut % (Auto) 79.9 H Lymph % (Auto) 12.8 L Lymph # (Auto) 1.20 L POC pH POC pCO2 POC HCO3 POC Total CO2 POC ABG Base Excess Carbon Dioxide Anion Gap BUN Creatinine Calcium Phosphorus Direct Bilirubin GGT AST ALT Alkaline Phosphatase Lactate Dehydrogenase C-Reactive Protein NT-Pro-B Natriuret Pep 15864.0 H Total Protein Albumin Urine Appearance Cloudy A Ur Leukocyte Esterase 25 A Urine WBC 5 H Ur Squamous Epith Cells 15 H Amorphous Crystals Few A Urine Bacteria Few A Urine Mucus Few A 03/20/22 03/20/22 04:56 04:56 Hgb 10.6 L MCV MCHC 28.6 L RDW 17.7 H MPV Neut % (Auto) 81.4 H Lymph % (Auto) 13.6 L Lymph # (Auto) 1.10 L POC pH POC pCO2 POC HCO3 POC Total CO2 POC ABG Base Excess Carbon Dioxide 13 L Anion Gap 18.0 H BUN 47 H Creatinine 3.3 H Calcium 7.2 L Phosphorus Direct Bilirubin GGT AST ALT Alkaline Phosphatase Lactate Dehydrogenase C-Reactive Protein NT-Pro-B Natriuret Pep Total Protein 5.3 L Albumin 2.8 L Urine Appearance Ur Leukocyte Esterase Urine WBC Ur Squamous Epith Cells Amorphous Crystals Urine Bacteria Urine Mucus Meds: Medications Acetaminophen (Acetaminophen 325 Mg Tablet) 650 mg PO Q6HP PRN; Protocol PRN Reason: Per Pain Protocol/Fever > 101 Last Admin: 03/20/22 22:42 Dose: 650 mg Documented by: Albuterol/Ipratropium (Ipratropium/Albuterol 3 Ml Ampul.Neb) 3 ml NEB Q4HP PRN PRN Reason: Shortness Of Breath Allopurinol (Allopurinol 100 Mg Tablet) 50 mg PO QDAY PENDING SALE TO [facility] Last Admin: 03/21/22 08:37 Dose: 50 mg Documented by: Apixaban (Apixaban 5 Mg Tablet) 2.5 mg PO BID PENDING SALE TO [facility] Last Admin: 03/21/22 08:41 Dose: 2.5 mg Documented by: Atorvastatin Calcium (Atorvastatin 40 Mg Tablet) 80 mg PO [facility] Last Admin: 03/20/22 21:24 Dose: 80 mg Documented by: Ceftriaxone Sodium (Ceftriaxone 1 Gm Vial) 1 gm IV Q24H PENDING SALE TO [facility]; Protocol Clopidogrel Bisulfate (Clopidogrel 75 Mg Tablet) 75 mg PO QDAY PENDING SALE TO [facility] Last Admin: 03/21/22 08:38 Dose: 75 mg Documented by: Docusate Sodium (Docusate Sodium 100 Mg Capsule) 100 mg PO BID PENDING SALE TO [facility] Last Admin: 03/21/22 08:39 Dose: Not Given Documented by: Donepezil HCl (Donepezil 10 Mg Tablet) 10 mg PO [facility] Last Admin: 03/20/22 21:25 Dose: 10 mg Documented by: Hydrocortisone Sodium Succinate (Hydrocortisone Sod Succ 100 Mg Vial) 100 mg IV Q8 PENDING SALE TO [facility] Last Admin: 03/21/22 10:52 Dose: 100 mg Documented by: Potassium Chloride 40 meq/ (Dextrose) 520 mls @ 130 mls/hr IV UD PRN PRN Reason: Potassium < 3 Magnesium Sulfate (Magnesium Sulfate) 2 gm in 50 mls @ 50 mls/hr IV UD PRN PRN Reason: Magnesium </= 1.6 Sodium Bicarbonate 150 meq/ (Dextrose) 1,000 mls @ 200 mls/hr IV Q5H PENDING SALE TO [facility] Stop: 03/22/22 09:59 Last Admin: 03/21/22 10:52 Dose: 200 mls/hr Documented by: Lactobacillus Rhamnosus (Lactobacillus 1 Capsule) 1 cap PO BID PENDING SALE TO [facility] Last Admin: 03/21/22 08:37 Dose: 1 cap Documented by: Levothyroxine Sodium (Levothyroxine 100 Mcg Tablet) 100 mcg PO QAMAC PENDING SALE TO [facility] Last Admin: 03/21/22 07:48 Dose: 100 mcg Documented by: Metoclopramide HCl (Metoclopramide 10 Mg/2 Ml Vial) 10 mg IV Q6HP PRN PRN Reason: Nausea And Vomiting Metronidazole (Metronidazole 500 Mg Tablet) 500 mg PO Q8 PENDING SALE TO [facility]; Protocol Last Admin: 03/21/22 05:57 Dose: 500 mg Documented by: Ondansetron HCl (Ondansetron 4 Mg/2 Ml Vial) 4 mg IV Q4HP PRN PRN Reason: Nausea And Vomiting Last Admin: 03/20/22 13:50 Dose: 4 mg Documented by: Polyethylene Glycol (Polyethylene Glycol 3350 17 Gm Packet) 17 gm PO DAILYP PRN PRN Reason: Constipation Senna (Sennosides 1 Tablet) 2 tab PO DAILYP PRN PRN Reason: Constipation Sodium Chloride (0.9 % Sodium Chloride 10 Ml Syringe) 10 ml IV Q8 PENDING SALE TO [facility] Last Admin: 03/21/22 05:57 Dose: 10 ml Documented by: A/P Narrative Plan of Treatment: Ms. Ellsworth is a 67 year old F Presents to the ED with increased weakness, also reports weight gain of 10 pound weight gain past few days. Also says she is slurring her words more than usual and seems more confused. Patient was recently admitted to [facility] for recurrent diverticulitis and was discharged yesterday, was there for several days. Patient says she got home from [facility] yesterday afternoon and slept through the rest of the day and night and when she woke up she noticed how weak and tired she was, She needed help getting off of the commode. Patient was admitted here in early February for 4 days for Encephalopathy influenza A and volume depletion. She was also admitted here in January for 4 days for acute diverticulitis. She was admitted here in December for 4 days for pulmonary embolism. Last admission prior to that was April 2021 for diverticulitis, for 4 days. Creatinine was noted found to be elevated above baseline. Acidosis with bicarb quite low. Case was discussed with Dr. Moran will follow patient. Patient denies any chest pain coughing shortness of breath or fevers. Has mild nausea at times. Chest x-ray with cephalization. [facility] [address] [facility] 1955 [address]Service Date:03/20/22 Admit Date: 03/20/22 [place], [place] [address]Wlnvar # [id number] Nemesio Villanueva P. D.O. MR #: [id number] Internal Med History&PhysicalSigned HPI History of Present Illness Patient information: Note initiated : 03/20/22 at 8:45 am Service Date, if different from initiated Date: [] Patient: Wendy Ellsworth a 67 y/o F admitted on for Weight Gain/Weakness. Chief Complaint: [] History of present illness: Ms. Ellsworth is a 67 year old F Presents to the ED with increased weakness, also reports weight gain of 10 pound weight gain past few days. Also says she is slurring her words more than usual and seems more confused. Patient was recently admitted to [facility] for recurrent diverticulitis and was discharged yesterday, was there for several days. Patient says she got home from [facility] yesterday afternoon and slept through the rest of the day and night and when she woke up she noticed how weak and tired she was, She needed help getting off of the commode. Patient was admitted here in early February for 4 days for Encephalopathy influenza A and volume depletion. She was also admitted here in January for 4 days for acute diverticulitis. She was admitted here in December for 4 days for pulmonary embolism. Last admission prior to that was April 2021 for diverticulitis, for 4 days. Creatinine was noted found to be elevated above baseline. Acidosis with bicarb quite low. Case was discussed with Dr. Moran will follow patient. Patient denies any chest pain coughing shortness of breath or fevers. Has mild nausea at times. Chest x-ray with cephalization. Review of Systems: Pertinent positives as above. Denies headache/fever/chills/vomiting/chest or abdominal pain/cough/dyspnea/diarrhea. Remaining 10 point review of system reviewed negative PFSH PFSH All Active Problems (Updated 03/20/22 @ 08:45 by Kamlesh Dinh MD) Nausea (Acute) Influenza A (Acute) Encephalopathy, metabolic (Acute) Leukocytosis (Acute) Fever (Acute) Hypomagnesemia (Acute) Weakness (Acute) Acute renal failure superimposed on stage 4 chronic kidney disease (Acute) Adynamic ileus (Acute) Vertigo (Acute) Gout flare (Acute) Pulmonary emboli (Acute) Stenosis of both vertebral arteries (Acute) Acute dyspnea (Acute) CHF (congestive heart failure) (Acute) CAD (coronary artery disease) (Acute) Atrial fibrillation (Acute) SBO (small bowel obstruction) (Acute) Diverticulitis of sigmoid colon (Acute) Nausea & vomiting (Acute) Matos's palsy (Acute) Diverticulitis (Acute) Constipation (Acute) Acute diverticulitis of intestine (Acute) Kidney transplant recipient (Acute) [id number] kidney injury (Acute) Cardiomegaly (Acute) Elevated brain natriuretic peptide (BNP) level (Acute) Fall (Acute) Hematoma of parietal scalp (Acute) Depression with suicidal ideation (Acute) Acute UTI (urinary tract infection) (Acute) Ureterolithiasis (Acute) Compression fracture of T11 vertebra (Acute) Suicide attempt (Acute) Laceration (Acute) Acute UTI (Acute) Anemia (Acute) CRF (chronic renal failure) (Acute) Acute alteration in mental status (Acute) ST elevation (STEMI) myocardial infarction (Acute) Right shoulder pain (Acute) Acute right-sided thoracic back pain (Acute) Hypertension (Acute) Urinary frequency (Acute) Other penitentiary (current) drug therapy (Chronic) Secondary hyperparathyroidism of renal origin (Chronic) Hyperlipidemia (Chronic) Glaucoma (Chronic) Macular degeneration (Chronic) Diverticulitis (Chronic) Idiopathic aseptic necrosis of femur (Chronic) Osteoporosis (Chronic) Vitamin D deficiency (Chronic) Anemia (Chronic) Essential hypertension (Chronic) Chronic kidney disease (CKD) (Chronic) Medical History Anemia Borderline hyperglycemia Chronic kidney disease (CKD) Stage 3 Dislocation, finger, metacarpophalangeal joint Diverticulitis Essential hypertension Glaucoma Hyperlipidemia Idiopathic aseptic necrosis of femur Macular degeneration Nausea & vomiting 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 Patient with chronic kidney insufficiency Osteoporosis Other penitentiary (current) drug therapy Phlebitis and thrombophlebitis Secondary hyperparathyroidism of renal origin Urinary tract infection Vitamin D deficiency Surgical History 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 Family history of AICD (automatic internal cardiac defibrillator) (~1996) History of hand surgery (~08/2015) History of hysterectomy (~1978) History of intraocular lens implant February & March 1989 History of kidney transplant (07/27/00) History of knee surgery (~04/2009) History of orthopedic surgery (04/28/96) mohamud placement in right leg 04/28/96 @ [place]; muscle relocation and skin grafts of right leg 04/29/96 @ [place] History of parathyroidectomy (11/27/95) History of surgery fistula placement February 1993 @ [place]; fistula declot; Graft placement upper right arm 10/1999 @ [place] Kidney replaced by transplant Status post biopsy of kidney (~03/2007) Family History Father Hypertension CVA (cerebral vascular accident) Colon polyps needed surgical resection/partial colectomy Prostate cancer Hyperlipidemia Social History alcohol intake frequency: does not drink substance use type: does not use MEDS/ALLERGIES Home Medications and Allergies Home Medications Medication Instructions Recorded Confirmed Type omeprazole 20 mg capsule,delayed 20 mg PO DAILY 08/11/15 03/20/22 History release tacrolimus 1 mg capsule, 3 mg PO BID cap 02/05/16 03/20/22 History immediate-release (Prograf) prednisone 5 mg tablet 5 mg PO QDAY 06/07/17 03/20/22 History donepezil 10 mg tablet 10 mg PO HS 04/22/19 03/20/22 History mycophenolate mofetil 250 mg 750 mg PO BID 05/15/21 03/20/22 History capsule torsemide 20 mg PO DAILY 05/15/21 03/20/22 History cholecalciferol (vitamin D3) 125 125 mcg PO QDAY 01/22/22 03/20/22 History mcg (5,000 unit) capsule clopidogrel 75 mg tablet 1 tab PO QDAY 01/22/22 03/20/22 History denosumab 60 mg/mL subcutaneous 60 mg SUBCUT Q3M 01/22/22 03/20/22 History syringe (Prolia) levothyroxine 100 mcg tablet 1 tab PO QDAY 01/22/22 03/20/22 History metoprolol succinate 25 mg 25 mg PO BID 01/22/22 03/20/22 History tablet,extended release 24 hr magnesium oxide 480 mg PO QDAY 01/23/22 03/20/22 History apixaban 5 mg tablet (Eliquis) 5 mg PO BID #60 tab 02/16/22 03/20/22 Rx Centrum Silver Women 1 tab PO DAILY 02/19/22 03/20/22 History allopurinol 100 mg tablet 1 tab PO QDAY 02/19/22 03/20/22 History atorvastatin 80 mg tablet 1 tab PO QDAY 02/19/22 03/20/22 History ondansetron 4 mg disintegrating 4 mg PO Q8H PRN #9 tab 02/26/22 03/20/22 Rx tablet losartan 50 mg tablet 50 mg PO QDAY 02/27/22 03/20/22 History oseltamivir 30 mg capsule 30 mg PO DAILY #1 cap 03/01/22 03/20/22 Rx metronidazole 500 mg tablet 500 mg PO Q8H 03/20/22 03/20/22 History Allergies Allergy/AdvReac Type Severity Reaction Status Date / Time ciprofloxacin AdvReac Intermediate Cramping Verified 03/20/22 04:08 of the Muscles levofloxacin AdvReac Intermediate Other Verified 03/20/22 04:08 Quinolones AdvReac Intermediate Muscle Pain Verified 03/20/22 04:08 Cephalosporins AdvReac Mild Rash Verified 03/20/22 04:08 cilastatin [From Primaxin] AdvReac Mild Rash Verified 03/20/22 04:08 droperidol [From Inapsine] AdvReac Mild Rash Verified 03/20/22 04:08 imipenem [From Primaxin] AdvReac Mild Rash Verified 03/20/22 04:08 Labetalol [From Trandate] AdvReac Mild Rash Verified 03/20/22 04:08 meperidine [From Demerol] AdvReac Mild Rash Verified 03/20/22 04:08 metronidazole [From Flagyl] AdvReac Mild Rash Verified 03/20/22 04:08 pentazocine [From Talwin] AdvReac Mild Rash Verified 03/20/22 04:08 phenobarbital AdvReac Mild Rash Verified 03/20/22 04:08 propoxyphene AdvReac Mild Rash Verified 03/20/22 04:08 [From Darvocet-N] tobramycin AdvReac Mild Rash Verified 03/20/22 04:08 EXAM Constitutional Vitals: Temp Pulse Resp BP Pulse Ox 97.0 F 86 18 91/80 99 03/20/22 04:04 03/20/22 08:44 03/20/22 05:29 03/20/22 08:31 03/20/22 08:44 Exam: General: Alert, Awake, No acute Distress Eyes/N/T: EOMI, PERRL, JVD noted Head/Neck: neck supple, normocephalic atraumatic CV: RRR, 1-2/6 SM. normal s1/s2 Pulm: Clear b/l, no wheezing/rhonchi/rales Abd: soft, nontender, +BS x4 Ext: no clubbing/cyanosis, 1-2+ b/l LE edema Neuro: Alert, no focal deficits, moves all extremities, CN 2-12 grossly intact, symmetrical strength b/l upper/lower, sensations intact b/l upper/lower Skin: warm/dry DATA Data Completed and Pending Labs: Labs from last 24 hours 03/20/22 03/20/22 03/20/22 08:33 05:29 04:56 WBC RBC Hgb Hct MCV MCH MCHC RDW Plt Count MPV Neut % (Auto) Lymph % (Auto) [place] % (Auto) Eos % (Auto) Baso % (Auto) Lymph # (Auto) [place] # (Auto) Eos # (Auto) Baso # (Auto) Absolute Neutrophils Sodium 139 Potassium 5.0 Chloride 108 Carbon Dioxide 13 L Anion Gap 18.0 H BUN 47 H Creatinine 3.3 H GFR Calculation 14 Glucose 91 Calcium 7.2 L Total Bilirubin 0.4 AST 29 ALT 19 Alkaline Phosphatase 107 NT-Pro-B Natriuret Pep Pending Total Protein 5.3 L Albumin 2.8 L Globulin 2.5 Albumin/Globulin Ratio 1.1 Urine Color Lisandra Urine Appearance Cloudy A Urine pH 5.0 Ur Specific [place] 1.021 Urine Protein Negative Urine Glucose (UA) Negative Urine Ketones Negative Urine Occult Blood Negative Urine Nitrate Negative Urine Bilirubin Negative Urine Urobilinogen Negative Ur Leukocyte Esterase 25 A Urine RBC < 1 Urine WBC 5 H Ur Squamous Epith Cells 15 H Ur Transition Epith Cell 1 Amorphous Crystals Few A Urine Bacteria Few A Urine Mucus Few A Ur Culture Indicated? No 03/20/22 04:56 WBC 8.1 RBC 3.75 Hgb 10.6 L Hct 37.0 MCV 98.7 MCH 28.3 MCHC 28.6 L RDW 17.7 H Plt Count 270 MPV 10.3 Neut % (Auto) 81.4 H Lymph % (Auto) 13.6 L [place] % (Auto) 4.0 Eos % (Auto) 0.6 Baso % (Auto) 0.4 Lymph # (Auto) 1.10 L [place] # (Auto) 0.32 Eos # (Auto) 0.05 Baso # (Auto) 0.03 Absolute Neutrophils 6.56 Sodium Potassium Chloride Carbon Dioxide Anion Gap BUN Creatinine GFR Calculation Glucose Calcium Total Bilirubin AST ALT Alkaline Phosphatase NT-Pro-B Natriuret Pep Total Protein Albumin Globulin Albumin/Globulin Ratio Urine Color Urine Appearance Urine pH Ur Specific [place] Urine Protein Urine Glucose (UA) Urine Ketones Urine Occult Blood Urine Nitrate Urine Bilirubin Urine Urobilinogen Ur Leukocyte Esterase Urine RBC Urine WBC Ur Squamous Epith Cells Ur Transition Epith Cell Amorphous Crystals Urine Bacteria Urine Mucus Ur Culture Indicated? WADE on CKD IV Metabolic acidosis Renal transplant patient, follows with [facility]): -On immunosuppressive therapy Acid Tester Dr. flores following the patient closely and worried about intestinal lymphoma. On discussion with the patient about goal of care Stopped immunosuppressive medication due to worsening renal failure Started on high-dose steroids Started on bicarb infusion Stop Lasix On discussion with the patient and family regarding potential dialysis-patient mentioned " I do not want dialysis" The patient does not want dialysis then needs to consider hospice as she continues to be worsening renal failure and oliguric Recurrent intestinal infection and microperforation Patient was recently admitted Continue antibiotics ceftriaxone and Flagyl Acid Tester is worried about lymphoma detail chronic immunosuppression Hypotension Monitor blood pressure on IV hydration with bicarb drip We will hold the Lasix acute on chronic CHF & Volume Overload: Probably due to worsening renal failure On discussion with the family regarding goal of care and dialysis Acute encephalopathy Improving Check neuro status Possible early dementia on donepezil and seroquel Generalized weakness/deconditioning/Debility: Has increasing needs at home -poor functional status *Anemia,chronic: *h/o b/l PE in December: on eliquis *CAD w/stent last Summer: on statin/plavix/bb *h/o AICD/PPM: *HTN: Low BP on admit *Hypothyroidism: *GERD: *SLE: *h/o recurrent diverticulitis: recently admitted to [facility] DNR Time Spent With Patient Time: Total time spent is greater than 50% in coordination of care (as documented) at patient's floor/unit and/or counseling patient: Total time spent with greater than 50% in coordination of care (as documented) at patient's floor/unit and/or counseling patient:: 35 - 50 minutes Critical Care Time: No QUALITY Stroke Symptom Onset Unknown: No VTE Deep Vein Thrombosis/Pulmonary Embolism Present on Admission: No
[2022-03-21] MEDS: cefTRIAXone 1 GM VIAL IV SCH (12:41)
--- OUTSIDE RECORDS SUMMARY | 2022-03-21 12:47 | External Medical Summary | Continuity of Care Document ---
:[address] [facility] Address [address] [place] [address] Phone Care Team Providers Name Role Phone [...] Active Miacalcin 200 - Active unit/Actuation Nasal [place] Aerosol Procedures Procedure Date Discharge Hospital Up [...] Description For Visit Copied on Encounter Discharge [facility] No Information [facility] Up [facility] Janes. PO Provider: To [facility], [facility] [address], [place] [address] [place], [place], , , [place], [id number] [address] [place], , [place]. [place] [id number] tel:[phone], , [place] [id number] [place] tel:[address], [id number] [place], [address]. tel:[phone] [facility] No Information [facility] L2 ENT Heart M. [address] Provider: [facility], [facility] [address], [facility] [place], , , [place], [id number] [address] [place], , [place] [id number] tel:[phone], , [place] [id number] [place] tel:[address], [id number] [place], [address]. tel:[phone] [facility] [facility] Oct-2 [place] Level 3 Exam ENT ENT HEARING LOSS, [address] [facility], P Clinic UNSPECIFIEDDEVIATED [address], [place], [id number] , [place]. , [place] tel:+50 tel:[phone] [facility] [place] [facility] Sep-0 [place] Level 3 Exam ENT ENT HEARING LOSS, [address] [facility], P Clinic UNSPECIFIEDDEVIATED [address] SEPTUMNEURAL HEARING [address] [place], [place], [id number] , [place]. , [place] tel:+50 tel:[phone] Family History Family Member Type Diagnosis Age At Onset No Information Payers Payer name Insurance type Covered democrat ID Authorization(s ) Medicare Part B [id number] [employer] Insurance CI [id number] [employer] CI [id number] Social History Type Description Quantity Date Captured [...]
--- OUTSIDE RECORDS SUMMARY | 2022-03-21 12:48 | External Medical Summary | Encounter Summary ---
:1955 Author Care Team Providers Name Role Phone Turner Devine MD Primary Care Provider [phone] Leeanne Lemus REVENUE INTEGRITY ANALYST-C Diabetologist [phone] Saji Fortune MD OTHER [phone] Reason for Visit edema; 2 MTH FOLLOW-UP [...] Hypertension) eating plan as recommended by the [place] [employer]. 2. A regular pattern of [...] Plasma 01/12/2022 [facility] Only Pro BNP (Pro B-type 01/12/20[facility] Natriuretic Peptide), Serum Only or Plasma BMP, Serum or Plasma 01/16/2022 [facility] Only Pro BNP (Pro B-type 01/16/[facility] Natriuretic Peptide), Serum Only or Plasma Lipid Panel, Blood 01/16/[address] [facility] Only Referral None recorded. Procedures None recorded. [...] Notes: Reviewed medicationbottles that patient brought in- [facility] 01/20/22 Some medications listed in Document: #[id number] could not be added to this patient's chart. Please review this document and add these medications to the patient's chart manually as needed. Medications Administered None recorded. Vitals Height Weight BMI Blood Pressure 5 ft 4 in 137.4 lbs 23.6 kg/m2 168/92 mm[Hg] Results Lab Results Date Name Specimen Result Interpretation Description Value Range Status Address 01/20/2022 Pro BNP (Pro Plasma High Probnp 27045.0 <125.0 Final Pathologists' B-type pg/mL pg/mL Regional L ab: Natriuretic [address], Peptide), Fidel n Serum or Plasma 01/20/2022 BMP, Serum Plasma Glucose,rando 90 mg/dL 70-105 Final Pathologists' or Plasma m mg/dL Regiona l Lab: [address] [facility] [place] Plasma High Blood Urea 54 mg/dL 8-23 Final Pat hologists' Nitrogen mg/dL Regional Lab: [address] [facility] [place] Plasma High Creatinine 2.6 0.6-1.1 Final Path ologists' mg/dL mg/dL Regional L ab: [address] , [place] Plasma Sodium 142 133-145 Final Patholog ists' mmol/L mmol/L Regional L ab: [address] [place] [address] Plasma Potassium 3.9 3.3-5.1 Final Patho logists' mmol/L mmol/L Regional L ab: [address] [place] [address] Plasma Chloride 106 96-108 Final Patholo gists' mmol/L mmol/L Regional L ab: [address] [place] [address] Plasma Low Carbon 19 22-30 Final Pathologi sts' Dioxide mmol/L mmol/L Regional Lab: [address] [place] [address] Plasma High Anion Gap 17.0 8.0-16. Final Patho logists' 0 Regional L ab: [address] [place] [address] Plasma Low Calcium 7.0 8.6-10. Final Patholo gists' mg/dL 4 mg/dL Regional Lab: [address] [place] [address] Plasma Glomerular 18 Final Patho logists' Filtration Region al Lab: Rate [address] [place] [address] 01/20/2022 Lipid Panel, Plasma Cholesterol 123 <200 F inal Pathologists' Blood mg/dL mg/dL Regional L ab: [address] [place] [address] Plasma Triglycerides 76 mg/dL <150 Final Pathologists' mg/dL Regional L ab: [address] [place] [address] Plasma LDL,calculate 57 mg/dL <100 Final Pathologists' d mg/dL Regional L ab: [address] [place] [address] Plasma HDL 51 mg/dL >40 Final Patholog ists' Cholesterol mg/dL Regio nal Lab: [address] [place] [address] Plasma non-HDL 72 mg/dL <130 Final Pathol ogists' Cholesterol mg/dL Regio nal Lab: [address] [place] [address] Allergies Code Code System Name Reaction Severity Onset 2551 RxNorm Ciprofloxacin Other Severe 08/07/2020 34052 RxNorm Levofloxacin Other Severe 08/07/2020 723 RxNorm Amoxicillin Rash 2189 RxNorm Cefoxitin Rash 2231 RxNorm Cephalexin Rash Cephalosporins Rash 2540 RxNorm Cilastatin Rash 3648 RxNorm Droperidol Rash 5690 RxNorm Imipenem Rash 6185 RxNorm Labetalol Rash 6470 RxNorm Lorazepam Rash 6754 RxNorm Meperidine Rash 6922 RxNorm Metronidazole Rash 7804 RxNorm Oxycodone Rash 8001 RxNorm Pentazocine Rash 8134 RxNorm Phenobarbital Rash 8785 RxNorm Propoxyphene Rash 52904 RxNorm Tobramycin Rash Notes: Some allergies listed in Docume nts: #[id number], #[id number], #[id number], #[id number], #[id number], #[id number], #[id number], [id number], #[id number] could not be added to this patient's [...] Do you feel stressed (tense, restless, nervous, [id number] or anxious, or unable to sleep at [...] Hyperlipidemia; Essential Hypertension Cata Sanders NP: [address] [place] [address], [place] [phone], Ph. 01/05/2022 Gout; Right Rotator Cuff Syndrome Turner Devine MD: [address] [place] [address] [address], [place] [address], Ph. History of Present Illness Note: <div>Wendy [...] 3.9</div><div>HCT 29.2</div><div>HBG 8.9 </div><div>
</div><div>
</div>&l t;div>3/8</div><div>bnp 48710</div><div>LDL 59</div><div>HDL 47</div><div& gt;
</div><div>Cr 2.5</div><div>Na 139</div><div>K 4.8</div><div>BNP 61125</div><div>
</div><div>Cr 2.0 </div ><div>HCT 29 </div><div>AST 14</div><div>
[...]
--- OUTSIDE RECORDS SUMMARY | 2022-03-21 12:48 | External Medical Summary | Encounter Summary ---
:1955 Author Care Team Providers Name Role Phone Turner Devine MD Primary Care Provider [phone] Leeanne Lemus AUTOMOTIVE PAINTER-C Cooker Casing [phone] Saji Fortune MD OTHER [phone] Reason for Visit 1 WK FOLLOW-UP No [...] Hypertension) eating plan as recommended by the [place] [employer]. 2. A regular pattern of [...] Plasma 01/20/2022 [facility] [place] Only Pro BNP (Pro B-type 01/20/[address] [facility] [place] Natriuretic Peptide), Serum Only or Plasma Referral [...] Notes: Reviewed medicationbottles that patient brought in- [facility] 01/20/22 Some medications listed in Document: #[id number] could not be added to this patient's chart. Please review this document and add these medications to the patient's chart manually as needed. Medications Administered None recorded. Vitals Height Weight BMI Blood Pressure 5 ft 4 in 135.2 lbs 23.2 kg/m2 174/100 mm[Hg] Results Lab Results None recorded. Allergies Code Code System Name Reaction Severity Onset 2551 RxNorm Ciprofloxacin Other Severe 08/07/2020 89911 RxNorm Levofloxacin Other Severe 08/07/2020 723 RxNorm Amoxicillin Rash 2189 RxNorm Cefoxitin Rash 2231 RxNorm Cephalexin Rash Cephalosporins Rash 2540 RxNorm Cilastatin Rash 3648 RxNorm Droperidol Rash 5690 RxNorm Imipenem Rash 6185 RxNorm Labetalol Rash 6470 RxNorm Lorazepam Rash 6754 RxNorm Meperidine Rash 6922 RxNorm Metronidazole Rash 7804 RxNorm Oxycodone Rash 8001 RxNorm Pentazocine Rash 8134 RxNorm Phenobarbital Rash 8785 RxNorm Propoxyphene Rash 60121 RxNorm Tobramycin Rash Notes: Some allergies listed in Docume nts: #[id number], #[id number], #[id number], #[id number], #[id number], #[id number], #[id number], [id number], #[id number] could not be added to this patient's [...] Do you feel stressed (tense, restless, nervous, [id number] or anxious, or unable to sleep at [...] Arteriosclerosis; Mixed Hyperlipidemia; Essential Hypertension Cata Sanders AUTOMOTIVE PAINTER: [address] [place] [address], [place] [phone], Ph. 01/12/2022 Acute on Chronic Diastolic Heart Failure ; Coronary Arteriosclerosis; Mixed Hyperlipidemia; Essential Hypertension Cata Sanders, AUTOMOTIVE PAINTER: [address] [place] [address], [place] [phone], Ph. 01/05/2022 Gout; Right Rotator Cuff Syndrome Turner Devine MD: [address] [facility], [address], [place] [address], Ph. History of Present Illness Note: <div>Wendy [...] </div><div>
</div><div>Labs: </div><div>3/24</div><div>Na 142</div><div>K 3.9</div><div>Cr 2.6</div><div>LDL 57</div><div>BNP 10127</div>& lt;div>
</div><div>
</div><div>3/12 </div><div>Cr 2.4</div><div>Na 135</div><div>K 3.9</div><div>HCT 29.2</ div><div>HBG 8.9</div><div>
</div><div>
</div&g t;<div>3/8</div><div>bnp 63599</div><div>LDL 59</div><div>HDL 47</div><div>
</div><div>Cr 2.5</div><div>Na 139</div><div>K 4.8</div><div>BNP 85133</div><div>
</div><div>Cr 2.0 </div><div>HCT 29 </div><div>AST 14</div><div>
</div><div>
[...]
--- OUTSIDE RECORDS SUMMARY | 2022-03-21 12:48 | External Medical Summary ---
:1955 Author Care Team Providers Name Role Phone ISAIAS HI MD Primary Care Provider [phone] CLEOPATRA MARTINEZ MD OTHER [phone] LEEANNE IVERSON MACHINE FEED OPERATOR-C Telephone Solicitor Supervisor [phone] Allergies Code Code System Name Reaction Severity Status Onset 2551 RxNorm Ciprofloxacin Other Severe Active 2019 02786 RxNorm Levofloxacin Other Severe Active 020 723 [...] Rash Active 8785 RxNorm Propoxyphene Rash Active 66900 RxNorm Tobramycin Rash Active Notes: Some allergies listed in Docume nts: #[id number], #[id number], #[id number], #[id number], #[id number], #[id number], #[id number], #[id number], #[id number] could not be added to this patient's [...] Notes: Reviewed medicationbottles that patient brought in- [facility] 01/20/22 Some medications listed in Document: #[id number] could not be added to this patient's [...] not cynthia ilable 09/16/2020 Oximetry Monitoring Overnight [facility] [address] [place] [address] (Work Place) 10/04/2020 Polysomnogram, Split Night [facility] [address] [facility] [address] [place] [address] (Work Place) 04/27/2021 CT, Arthrogram, Shoulder [facility] (Imaging) [address] [place] [address] (Work Place) 07/19/2021 Electrocardiogram [facility] [address] [place] [address] (Work Place) Results Lab Results Date Name Specimen Result Interpretation Description Value Range Status Address 02/14/2022 PT/INR Plasma High Prothrombin 17.2 11.9-14.5 Ruby l Pathologists' Time sec sec Regional L ab: [address] [facility] , [place] Plasma High Inr 1.3 0.9-1.1 Final Pathologi sts' Regional L ab: [address] [facility] , [place] 02/07/2022 PT/INR Plasma High Prothrombin 47.7 11.9-14.5 Ruby [place]a Pathologists' Time sec sec Regional L ab: [address] [facility] , [place] Plasma High Inr 4.9 0.9-1.1 Final Pathologi sts' Regional L ab: [address] [facility] , [place] 01/20/2022 Pro BNP Plasma High Probnp 04768. <125.0 Final Path ologists' (Pro 0 pg/mL Regional L ab: B-type pg/mL [address] [facility] , [place]t [place] Peptide), Serum or Plasma 01/20/2022 BMP, Plasma Glucose,rando 90 70-105 Final Pathologists' Serum or m mg/dL mg/dL Regional Lab: Plasma [address] [facility] , [place] Plasma High Blood Urea 54 8-23 mg/dL Final P athologists' Nitrogen mg/dL Regional Lab: [address] [facility] , [place] Plasma High Creatinine 2.6 0.6-1.1 Final Path ologists' mg/dL mg/dL Regional L ab: [address] [facility] , [place] Plasma Sodium 142 133-145 Final Patholog ists' mmol/L mmol/L Regional L ab: [address] [facility] , [place] Plasma Potassium 3.9 3.3-5.1 Final Patho logists' mmol/L mmol/L Regional L ab: [address] [facility] , [place] Plasma Chloride 106 96-108 Final Patholo gists' mmol/L mmol/L Regional L ab: [address] [facility] , [place] Plasma Low Carbon 19 22-30 Final Pathologi sts' Dioxide mmol/L mmol/L Regional Lab: [address] [facility] , [place] Plasma High Anion Gap 17.0 8.0-16.0 Final Path ologists' Regional L ab: [address] [facility] , [place] Plasma Low Calcium 7.0 8.6-10.4 Final Pathol ogists' mg/dL mg/dL Regional L ab: [address] [facility] , [place] Plasma Glomerular 18 Final Patho logists' Filtration Region al Lab: Rate [address] [facility] , [place] 01/20/2022 Lipid Plasma Cholesterol 123 <200 mg/dL Fin al Pathologists' Panel, mg/dL Regional L ab: Blood [address] [facility] , [place] Plasma Triglycerides 76 <150 mg/dL Final Pathologists' mg/dL Regional L ab: [address] , [place] Plasma LDL,calculate 57 <100 mg/dL Final Pathologists' d mg/dL Regional L ab: [address] [facility] , [place] Plasma HDL 51 >40 mg/dL Final Patholo gists' Cholesterol mg/dL Regio nal Lab: [address] [facility] , [place] Plasma non-HDL 72 <130 mg/dL Final Path ologists' Cholesterol mg/dL Regio nal Lab: [address] [facility] , [place] 01/04/2022 Pro BNP Plasma High Probnp 83728. <125.0 Final Path ologists' (Pro 0 pg/mL Regional L ab: B-type pg/mL [address] [facility] , Natriuret [facility] n ic Peptide), Serum or Plasma 01/04/2022 CMP, Plasma Glucose,rando 100 70-105 Final Pathologists' Serum or m mg/dL mg/dL Regional Lab: Plasma [address] [facility] , [place] Plasma High Blood Urea 44 8-23 mg/dL Final P athologists' Nitrogen mg/dL Regional Lab: [address] [facility] , [place] Plasma High Creatinine 2.3 0.6-1.1 Final Path ologists' mg/dL mg/dL Regional L ab: [address] , [place] Plasma Sodium 135 133-145 Final Patholog ists' mmol/L mmol/L Regional L ab: [address] , [place] Plasma Potassium 4.1 3.3-5.1 Final Patho logists' mmol/L mmol/L Regional L ab: [address] [facility] , [place] Plasma Chloride 106 96-108 Final Patholo gists' mmol/L mmol/L Regional L ab: [address] [facility] , [place] Plasma Low Carbon 19 22-30 Final Pathologi sts' Dioxide mmol/L mmol/L Regional Lab: [address] [facility] , [place] Plasma Anion Gap 10.0 8.0-16.0 Final Path ologists' Regional L ab: [address] , [place] Plasma Calcium 9.8 8.6-10.4 Final Pathol ogists' mg/dL mg/dL Regional L ab: [address] , [place] Plasma Total Protein 6.5 5.9-8.4 Final P athologists' gm/dL gm/dL Regional L ab: [address] [facility] , [place] Plasma Albumin 3.4 3.2-5.2 Final Patholo gists' gm/dL gm/dL Regional L ab: [address] [facility] , [place] Plasma Globulin 3.1 2.2-3.7 Final Pathol ogists' gm/dL gm/dL Regional L ab: [address] [facility] , [place] Plasma Alb/glob 1.1 1.0-2.3 Final Pathol ogists' Ratio Regional L ab: [address] [facility] , [place] Plasma Bilirubin,tot 0.2 0.1-1.0 Final P athologists' al mg/dL mg/dL Regional L ab: [address] [facility] , [place] Plasma AST/SGOT 8 U/L <32 U/L Final Pathol ogists' Regional L ab: [address] [facility] , [place] Plasma ALT/SGPT <5 U/L <40 U/L Final Pathol ogists' Regional L ab: [address] [facility] , [place] Plasma Alkaline 64 U/L 39-117 U/L Final Pat hologists' Phosphatase Regio nal Lab: [address] [facility] , [place] Plasma Glomerular 21 Final Patho logists' Filtration Region al Lab: Rate [address] [facility] , [place] 01/04/2022 Lipid Plasma Cholesterol 123 <200 mg/dL Fin al Pathologists' Panel, mg/dL Regional L ab: Blood [address] [facility] , [place] Plasma Triglycerides 89 <150 mg/dL Final Pathologists' mg/dL Regional L ab: [address] [facility] , [place] Plasma LDL,calculate 59 <100 mg/dL Final Pathologists' d mg/dL Regional L ab: [address] [facility] , [place] Plasma HDL 47 >40 mg/dL Final Patholo gists' Cholesterol mg/dL Regio nal Lab: [address] [facility] , [place] Plasma non-HDL 76 <130 mg/dL Final Path ologists' Cholesterol mg/dL Regio nal Lab: [address] [facility] , [place] 11/12/2021 BMP, Plasma Glucose,rando 103 70-105 Final Pathologists' Serum or m mg/dL mg/dL Regional Lab: Plasma [address] [facility] , [place] Plasma High Blood Urea 57 8-23 mg/dL Final P athologists' Nitrogen mg/dL Regional Lab: [address] [place] [address] Plasma High Creatinine 2.5 0.6-1.1 Final Path ologists' mg/dL mg/dL Regional L ab: [address] [facility] , [place] Plasma Sodium 139 133-145 Final Patholog ists' mmol/L mmol/L Regional L ab: [address] , [place] Plasma Potassium 4.8 3.3-5.1 Final Patho logists' mmol/L mmol/L Regional L ab: [address] , [place] Plasma Chloride 106 96-108 Final Patholo gists' mmol/L mmol/L Regional L ab: [address] , [place] Plasma Carbon 22 22-30 Final Pathologi sts' Dioxide mmol/L mmol/L Regional Lab: [address] , [place] Plasma Anion Gap 11.0 8.0-16.0 Final Path ologists' Regional L ab: [address] , [place] Plasma High Calcium 10.6 8.6-10.4 Final Pathol ogists' mg/dL mg/dL Regional L ab: [address] , [place] Plasma Glomerular 19 Final Patho logists' Filtration Region al Lab: Rate [address] , [place] 11/12/2021 Pro BNP Not High Nt Probnp 48954 Final P Hospital - (Pro Specified pg/mL [facility] [place] Only: B-type [address] , Natriuret [place] n ic Peptide), Serum or Plasma 09/01/2021 Pro BNP Plasma High Probnp 37678. <125.0 Final Path ologists' (Pro 0 pg/mL Regional L ab: B-type pg/mL [address] , Natriuret [place] ic Peptide), Serum or Plasma 09/01/2021 BMP, Plasma High Glucose,rando 112 70-105 Final Pathologists' Serum or m mg/dL mg/dL Regional Lab: Plasma [address] , [place] Plasma High Blood Urea 31 8-23 mg/dL Final P athologists' Nitrogen mg/dL Regional Lab: [address] , [place] Plasma High Creatinine 1.9 0.6-1.1 Final Path ologists' mg/dL mg/dL Regional L ab: [address] , [place] Plasma Sodium 141 133-145 Final Patholog ists' mmol/L mmol/L Regional L ab: [address] , [place] Plasma Potassium 4.7 3.3-5.1 Final Patho logists' mmol/L mmol/L Regional L ab: [address] , [place] Plasma High Chloride 109 96-108 Final Patholo gists' mmol/L mmol/L Regional L ab: [address] , [place] Plasma Low Carbon 20 22-30 Final Pathologi sts' Dioxide mmol/L mmol/L Regional Lab: [address] [facility] , [place] Plasma Anion Gap 12.0 8.0-16.0 Final Path ologists' Regional L ab: [address] [facility] , [place] Plasma Low Calcium 7.8 8.6-10.4 Final Pathol ogists' mg/dL mg/dL Regional L ab: [address] [facility] , [place] Plasma Glomerular 27 Final Patho logists' Filtration Region al Lab: Rate [address] [facility] , [place] 01/08/2020 Dhea, No observation Pathologists' Serum recorded. Regiona l Lab: [address] [facility] , [place] 12/12/2019 Dhea-sulf DHEA-S DHEA-S 42.82 9.40-246 Final Pathologists' ate, (dehydroe ug/dL ug/dL Regiona l Lab: Serum piandrost [address] [facility], erone [place] sulfate) 11/28/2019 DHEA Serum or Dehydroepiand 171 () NG/dL F inal Pathologists' (Dehydrop plasma rosterone NG/dL Felicitas onal Lab: iandroste unconjuga [address] [facility], abby) [facility] dehydroep iandroste abby (DHEA) measureme nt(mass/v olume) Serum or Results Pathol ogists' plasma Regional L ab: unconjuga [address] [facility], [facility] dehydroep iandroste abby (DHEA) measureme nt(mass/v olume) Past Encounters 02/02/2022 Acute Pulmonary Embolism; Pulmonary Embo lism on Long-term Anticoagulation Therapy Isaias Hi MD: [address], [place] [phone], Ph. 01/20/2022 Acute on Chronic Diastolic Heart Failure ; Coronary Arteriosclerosis; Mixed Hyperlipidemia; Essential Hypertension Cata Sanders, MACHINE FEED OPERATOR: [address] [place] [address], [place] [phone], Ph. 01/12/2022 Acute on Chronic Diastolic Heart Failure ; Coronary Arteriosclerosis; Mixed Hyperlipidemia; Essential Hypertension Cata Sanders MACHINE FEED OPERATOR: [address] [place] [address], [place] [phone], Ph. 01/05/2022 Gout; Right Rotator Cuff Syndrome Isaias Hi MD: [address] [place] [address], [place] [phone], Ph. 11/29/2021 Full Thickness Rotator Cuff Tear Isaias Hi MD: [address] [place] [address], [place] [phone], Ph. 11/26/2021 Acute on Chronic Diastolic Heart Failure ; Coronary Arteriosclerosis; Mixed Hyperlipidemia; Essential Hypertension Cata Sanders, MACHINE FEED OPERATOR: [address] [place] [address], [place] [address], Ph. 09/01/2021 Acute on Chronic Diastolic Heart Failure ; Coronary Arteriosclerosis; Mixed Hyperlipidemia; Essential Hypertension Anupam Burdick MD: [address] [place] [address] , [place] [address], Ph. 08/17/2021 Acute on Chronic Diastolic Heart Failure ; Chronic Diastolic Heart Failure; Coronary Arteriosclerosis; Mixed Hyperlipidemia; Essential Hypertension Anupam Burdick MD: [address] [place] [address] , [place] [address], Ph. 07/19/[address] Segment Elevation Myocardial In farction; Aortic Valve Sclerosis; Essential Hypertension; Hyperlipidemia; Left Ventricular Systolic Dysfunction; Stented Coronary Artery; Coronary Arteriosclerosis; Chronic Kidney Disease Stage 4 Leeanne Iverson, MACHINE FEED OPERATOR: [address] [place] [address], [place] [phone], Ph. 06/09/[address] Segment Elevation Myocardial In farction Isaias Hi MD: [address] [place] [address], [place] [phone], Ph. 05/27/2021 Diverticulitis of Colon Isaias Hi MD: [address] [place] [address], [place] [phone], Ph. 04/27/2021 Supraspinatus Tear Isaias Hi MD: [address] [place] [address], [place] [phone], Ph. 02/23/2021 Antibiotic-associated Diarrhea Isaias Hi MD: [address] [place] [address], [place] [phone], Ph. 02/03/2021 Intermittent Confusion Isaias Hi MD: [address] [facility], [address], [place] [phone], Ph. 10/16/2020 Obstructive Sleep Apnea of Adult; Chroni c Depression; Essential Hypertension Isaias Hi MD: [address] [facility], [address], [place] [phone], Ph. Social History Tobacco Smoking Status Never [...] Hypertension) eating plan as recommended by the [place] [employer]. 2. A regular pattern of [...] Hypertension) eating plan as recommended by the [place] [employer]. 2. A regular pattern of [...] Hypertension) eating plan as recommended by the [place] [employer]. 2. A regular pattern of [...] lbs 22.3 kg/m2 132/86 mm[Hg] 11/26/2021 10:00AM [facility] Cardio Patient HF Height Weight BMI Blood [...]
--- OUTSIDE RECORDS SUMMARY | 2022-03-21 12:48 | External Medical Summary | Encounter Summary ---
:1955 Author Care Team Providers Name Role Phone Turner Devine MD Primary Care Provider [phone] Leeanne Lemus SENSITIZER-C [employer] Operator [phone] Saji Fortune MD OTHER [phone] Reason for Visit Hospital F/U Assessment and [...] anti coagulation therapy PT/INR - drawn at [facility] lab please PT/INR - drawn at [facility] lab please PT/INR - drawn at [facility] lab please PT/INR - drawn at [facility] lab please PT/INR - drawn at [facility] lab please PT/INR - drawn at [facility] lab please Discussion Note: None recorded.Patient educational handouts: No information available. Plan of Care Reminders Provider Appointments None recorded. Lab PT/INR 02/02/2022 [facility] Only PT/INR 02/09/2022 [facility] Only PT/INR 02/16/2022 [facility] Only PT/INR 02/23/2022 [facility] Only PT/INR 03/10/2022 [facility] Only PT/INR 03/17/2022 [facility] Only Referral None recorded. Procedures None recorded. [...] Notes: Reviewed medicationbottles that patient brought in- [facility] 01/20/22 Some medications listed in Document: #[id number] could not be added to this patient's [...] [facility] ab: [address] , [place] Plasma High Inr 4.9 0.9-1.1 Final Pathologi sts' [facility] ab: [address] [facility] Allergies Code Code System Name Reaction Severity Onset 2551 RxNorm Ciprofloxacin Other Severe 08/07/2020 18413 RxNorm Levofloxacin Other Severe 08/07/2020 723 RxNorm Amoxicillin Rash 2189 RxNorm Cefoxitin Rash 2231 RxNorm Cephalexin Rash Cephalosporins Rash 2540 RxNorm Cilastatin Rash 3648 RxNorm Droperidol Rash 5690 RxNorm Imipenem Rash 6185 RxNorm Labetalol Rash 6470 RxNorm Lorazepam Rash 6754 RxNorm Meperidine Rash 6922 RxNorm Metronidazole Rash 7804 RxNorm Oxycodone Rash 8001 RxNorm Pentazocine Rash 8134 RxNorm Phenobarbital Rash 8785 RxNorm Propoxyphene Rash 94535 RxNorm Tobramycin Rash Notes: Some allergies listed in Docume nts: #[id number], #[id number], #[id number], #[id number], #[id number], #[id number], #[id number], #[id number], #[id number] could not be added to this patient's [...] Do you feel stressed (tense, restless, nervous, [id number] or anxious, or unable to sleep at [...] on Long-term Anticoagulation Therapy Turner Devine MD: [address] [place] [address] [address], [place] [address], Ph. 01/20/2022 Acute on Chronic Diastolic Heart Failure ; Coronary Arteriosclerosis; Mixed Hyperlipidemia; Essential Hypertension Cata Sanders SENSITIZER: [address] [place] [address], [place] [address], Ph. 01/12/2022 Acute on Chronic Diastolic Heart Failure ; Coronary Arteriosclerosis; Mixed Hyperlipidemia; Essential Hypertension Cata Sanders SENSITIZER: [address] [place] [address], [place] [address], Ph. 01/05/2022 Gout; Right Rotator Cuff Syndrome Turner Devine MD: [address] [facility], [address], [place] [address], Ph. History of Present Illness Note: <div>Had [...] </div><div>
</div><div>Labs: </div><div>3/24</div><div>Na 142</div><div>K 3.9</div><div>Cr 2.6</div><div>LDL 57</div><div>BNP 39731</div><div& gt;
</div><div>
</div><div>3/12</di v><div>Cr 2.4</div><div>Na 135</div><div>K 3.9</div><div>HCT 29.2</div><div>HBG 8.9</div><div>
</div><div>
</div&gt ;<div>3/8</div><div>bnp 20348</div><div>LDL 59</div><div>HDL 47&l t;/div><div>
</div><div>Cr 2.5</div><div>Na 139</div><div>K 4.8</div><div>BNP 39443</div><div>
</div><div>Cr 2.0 </div><div>HCT 29 </div><div>AST 14"</div><div&gt ;
[...]
--- OUTSIDE RECORDS SUMMARY | 2022-03-21 12:48 | External Medical Summary | Encounter Summary ---
:1955 Author Care Team Providers Name Role Phone Turner Devine MD Primary Care Provider [phone] Leeanne Lemus EFFICIENCY MANAGER-C [employer] [phone] Saji Fortune MD OTHER [phone] Reason for Visit Shoulder Pain Assessment and Plan Assessment Note I have personally reviewed the medicati on, allergies, medical, social, surgical, and family history of this patient today. I also read Dr Goddard's notes and recommendations, as well as Dr Burdick/Diana [facility] assessment of her cardiovascula r status. [...] Notes: Reviewed medicationbottles that patient brought in- [facility] 01/20/22 Some medications listed in Document: #[id number] could not be added to this patient's chart. Please review this document and add these medications to the patient's chart manually as needed. Medications Administered None recorded. Vitals Height Weight BMI Blood Pressure 5 ft 4 in 140 lbs 24 kg/m2 138/84 mm[Hg] Results Lab Results None recorded. Allergies Code Code System Name Reaction Severity Onset 2551 RxNorm Ciprofloxacin Other Severe 08/07/2020 21037 RxNorm Levofloxacin Other Severe 08/07/2020 723 RxNorm Amoxicillin Rash 2189 RxNorm Cefoxitin Rash 2231 RxNorm Cephalexin Rash Cephalosporins Rash 2540 RxNorm Cilastatin Rash 3648 RxNorm Droperidol Rash 5690 RxNorm Imipenem Rash 6185 RxNorm Labetalol Rash 6470 RxNorm Lorazepam Rash 6754 RxNorm Meperidine Rash 6922 RxNorm Metronidazole Rash 7804 RxNorm Oxycodone Rash 8001 RxNorm Pentazocine Rash 8134 RxNorm Phenobarbital Rash 8785 RxNorm Propoxyphene Rash 91080 RxNorm Tobramycin Rash Notes: Some allergies listed in Docume nts: #[id number], #[id number], #[id number], #[id number], #[id number], #[id number], [id number], [id number], #[id number] could not be added to this patient's [...] Do you feel stressed (tense, restless, nervous, [id number] or anxious, or unable to sleep at [...] Right Rotator Cuff Syndrome Turner Devine MD: [address] [place] [address], [address], [place] [address], Ph. History of Present Illness Note: <div>Wanted [...] swelling, erythema Peripheral Pulses: Radial Pulse: normal. It Manager ior Tibialis Pulse normal
[2022-03-21 14:15] LABS: Potassium,Urine Random 35.2 mmol/L; Uric Acid,Urine Random 2.7 mg/dL (37.0-92.0)
[2022-03-21] MEDS: DONEPEZIL 10 MG TABLET PO SCH (21:22)
[2022-03-21] MEDS: ATORVASTATIN 40 MG TABLET PO SCH (21:22)
[2022-03-22] MEDS: SODIUM BICARBONATE VIAL 150 MEQ in DEXTROSE 5% IN WATER 850 ML IV SCH ×2 (03:44→09:14)
[2022-03-22] MEDS: metroNIDAZOLE 500 MG TABLET PO SCH (06:32)
[2022-03-22] MEDS: 0.9 % SODIUM CHLORIDE 10 ML SYRINGE IV SCH (06:32)
[2022-03-22] MEDS: HYDROCORTISONE SOD SUCC 100 MG VIAL IV SCH (06:55)
[2022-03-22] MEDS: LEVOTHYROXINE 100 MCG TABLET PO SCH (07:20)
--- NOTE | 2022-03-22 07:44 | Nephrology Progress Note ---
SUBJECTIVE Subjective Patient information: Note initiated : 03/22/22 at 7:35 am Service Date, if different from initiated Date: [] Patient: Wendy Ellsworth 67 y/o F admitted on 03/20/22 for Weight Gain/Weakness. Chief Complaint: [Weakness] Principal diagnosis: failure to thrive Interval history: FeNa c/w pre-renal azotemia Hypotension and dehydration > CHF as LVEF 50%. Elevated proBNP with markedly dilated RA and LA, not reduced LV Fx. Renal vasoconstriction for tacrolimus Marked anion gap (+) and NAG metabolic acidosis with compensatory repsiratory alkalosis and tachypnea 12 amps NaHCO3 over past 24 hours Renal transplant on triple immunosuppression x 20 yrs Stress dose HC and hold FK 506, MMF and prednisone SBO repeated demonstrated on CT in January and February 2022 No response to ABx Hypotension on admission Volume as NaHCO3 and stress dose H/C Anuria Improved with IVF and general improvement in GFR Vital Signs Temp Pulse Resp BP Pulse Ox 03/22/22 07:28 36.5 C 98 H 16 151/98 92 03/22/22 03:08 36.6 C 81 16 111/56 96 03/21/22 22:38 36.8 C 81 18 118/65 92 03/21/22 18:36 36.4 C 73 16 118/66 100 03/21/22 16:00 36.7 C 24 H 110/73 100 03/21/22 11:49 36.2 C 24 H 131/89 100 03/21/22 11:22 36.2 C 24 H 131/89 100 03/21/22 07:51 91 H 112/83 Intake and Output 03/21/22 03/22/22 03/22/22 21:59 05:59 13:59 Intake Total 2120 1200 Output Total 50 Balance 2120 1150 Intake: IV 2000 1000 Sodium Bicarbonate Vial 150 Meq 2000 1000 In Dextrose 5% in Water 850 ml @ 200 mls/hr IV Q[facility]H [facility] Rx#: [id number] Oral 120 200 Output: Urine Catheter Amount 50 Other: Urine Appearance Cloudy Straight Clear Urine Color Dark Yellow Straight Dark Yellow Urine Odor Straight Normal Weight 79.243 kg Echocardiogram 02/2022 CT ABD/Pelvis February 2022 uPerforation/Abscess uPerforation/Abscess SBO Pertinent ROS: Hydrated O/N with 4 liters of "normal bicarb" Acid/base better Oliguria Guiacic (+) stool c/w diverticular abscess in sigmoid colon seen on CT(s) Additional PMFSH (Level 3 Only): N/A Constitutional Vitals: Vital Signs Temp Pulse Resp BP Pulse Ox 36.5 C 98 H 16 151/98 92 03/22/22 07:28 03/22/22 07:28 03/22/22 07:28 03/22/22 07:28 03/22/22 07:28 Period Temp Pulse Resp BP Sys/Reynoso Pulse Ox Last 24 Hr 36.2 C-36.8 C 73-98 16-24 110-151/56-98 92-100 Intake and Output 03/21/22 03/22/22 03/22/22 21:59 05:59 13:59 Intake Total 212 1200 Output Total 50 Balance 2119 1150 Weight 79.243 kg Intake & Output: Intake & Output 03/21/22 03/22/22 03/22/22 21:59 05:59 13:59 Intake Total 2119 1200 Output Total 50 Balance 2119 1150 Weight 79.243 kg Intake: IV 2000 1000 Sodium Bicarbonate Vial 150 Meq 2000 1000 In Dextrose 5% in Water 850 ml @ 200 mls/hr IV Q5H [facility] Rx#: [id number] Oral 120 200 Output: Urine Catheter Amount 50 Other: Urine Appearance Cloudy Straight Clear Urine Color Dark Yellow Straight Dark Yellow Urine Odor Straight Normal General appearance: obese Head Head exam: Present normocephalic Eye Eye exam: Present EOMI; Absent scleral icterus Pupils: Present PERRL ENT ENT exam: Present mucous membranes moist Neck Neck exam: Absent meningismus Respiratory Respiratory exam: Present rhonchi; Absent accessory muscle use Cardiovascular Cardiovascular exam: Present +S1, +S2 and systolic murmur GI/Abdominal GI/Abdominal exam: Present diminished bowel sounds Extremities Exam Extremities exam: Present pedal edema Neurological Exam Neurological exam: Present altered and CN II-XII intact; Absent alert Additional comments: Sleepy but arousable Psychiatric Psychiatric exam: Present anxious Skin Skin exam: Present dry; Absent warm A/P Assessment and plan (1) Acute diverticulitis of intestine: Status: Acute (2) Acute renal failure superimposed on stage 4 chronic kidney disease: Status: Acute Comment: Oliguria and worsening GFR ambivalent about HD...needs to speak with (3) Kidney transplant recipient: Status: Acute (4) DNR no code (do not resuscitate): Status: Acute (5) Elevated brain natriuretic peptide (BNP) level: Status: Acute Comment: Echo with some AI and MR and ok LVEF of 50%. Small pericardial effusion is not causing tamponade. (6) Secondary hyperparathyroidism of renal origin: Status: Chronic (7) Metabolic acidosis: Status: Acute Comment: Etiology unclear but worsening w/o increase in lactic acid Start bicarb drip Still suspect inadequate renal HCO3 production and GI bicarb losses (8) SBO (small bowel obstruction): Status: Acute Comment: Persistent on 2 CTs separtated by 1 month SBFT may be helpful Plan see below Narrative A/P Narrative: 1. Diverticulitis with microabscess for past month and jejunal Small bowel dilation - see MRI 2. RTx with decline in GFR from 25 to 10 cc/min past 5 weeks 3. Hypotension resolved with 4 liters of crystalloid 4. Mixed AG (+) and Non-anion gap acidosis improved with total 600 mEq of NaHCO3 over 24 hours 5. FeNa <1% c/w pre-renal causes of oligoanuric ARF in setting of FK-506 renal vasoconstriction and initial hypotension / dehydration / diverticular microabscess 6. As she has no IV HD access and she has now changed her mind and wishes to try HD again (was last dialyzed 20 yrs ago pre LRD RTx (son donor) with SLE though to be cause of ESRD, she will be sent to [facility] in [place]. 7. If she survives hospital stay, return to care of Dr Andria Fortune in [place], [place] (Nephrology) 8. Out of concern for the length of immunization with triple drug therapy, GI findings and severe pre-renal azotemia, I stopped Pred, MMF and FK-506 and using Solumedrol 100=>50 mg IV q 8 hr. 9. Now that she is hydrated, I was gonna give Lasix 200 mg IV times 1 dose but lifeflight arrived 10. Started Calcitriol given low Ca 11. PO4 corrected with D5W as part of Bicarb drip. Plan of Treatment: WADE on CKD IV Metabolic acidosis Renal transplant patient, follows with [facility]): -On immunosuppressive therapy Die Polisher Dr. flores following the patient closely and worried about intestinal lymphoma. On discussion with the patient about goal of care Stopped immunosuppressive medication due to worsening renal failure Started on high-dose steroids Started on bicarb infusion Stop Lasix On discussion with the patient and family regarding potential dialysis-patient mentioned " I do not want dialysis" => Changed her mind today Recurrent intestinal infection and microperforation Patient was recently admitted Continue antibiotics ceftriaxone and Flagyl Die Polisher is worried about lymphoma detail chronic immunosuppression Hypotension Monitor blood pressure on IV hydration with bicarb drip We will hold the Lasix acute on chronic CHF & Volume Overload: Probably due to worsening renal failure On discussion with the family regarding goal of care and dialysis Acute encephalopathy Improving Check neuro status Possible early dementia on donepezil and seroquel Generalized weakness/deconditioning/Debility: Has increasing needs at home -poor functional status *Anemia,chronic: *h/o b/l PE in December: on eliquis *CAD w/stent last Summer: on statin/plavix/bb *h/o AICD/PPM: *HTN: Low BP on admit *Hypothyroidism: *GERD: *SLE: *h/o recurrent diverticulitis: recently admitted to [facility] DNR Time Spent With Patient Time: Total time spent is greater than 50% in coordination of care (as documented) at patient's floor/unit and/or counseling patient:
[2022-03-22] MEDS: cefTRIAXone 1 GM VIAL IV SCH (09:02)
[2022-03-22] MEDS: ALLOPURINOL 100 MG TABLET PO SCH (09:02)
[2022-03-22] MEDS: LACTOBACILLUS 1 CAPSULE PO SCH (09:02)
[2022-03-22] MEDS: APIXABAN 5 MG TABLET PO SCH (09:03)
[2022-03-22] MEDS: CLOPIDOGREL 75 MG TABLET PO SCH (09:03)
[2022-03-22] MEDS: DOCUSATE SODIUM 100 MG CAPSULE PO SCH (09:16)
--- NOTE | 2022-03-22 12:09 | Discharge Summary ---
Discharge Provider Provider IMPORTANT FOLLOW-UP INFORMATION FOR PCP: Patient information: Note initiated : 03/22/22 at 12:06 pm Service Date, if different from initiated Date: [] Patient: Wendy Ellsworth 67 y/o F admitted on 03/20/22 for Weight Gain/Weakness. Chief Complaint: [] Date of admission: 03/20/22 10:15 Discharge date: 03/22/22 Primary care physician: Turner Devine Consults: 03/20/22 Consult to Physician [CONS] Stat Comment: Consulting Provider: Nemesio Villanueva Reason For Exam: Physician to Consult 03/20/22 07:49 Consult to Physician [CONS] Stat Comment: Consulting Provider: Sacha Moran Reason For Exam: Physician to Consult COURSE Hospital Course Hospital course: 03/20/2022 Ms. Ellsworth is a 67 year old F Presents to the ED with increased weakness, also reports weight gain of 10 pound weight gain past few days. Also says she is slurring her words more than usual and seems more confused. Patient was recently admitted to [facility] for recurrent diverticulitis and was discharged yesterday, was there for several days. Patient says she got home from [facility] yesterday afternoon and slept through the rest of the day and night and when she woke up she noticed how weak and tired she was, She needed help getting off of the commode. Patient was admitted here in early February for 4 days for Encephalopathy influenza A and volume depletion. She was also admitted here in January for 4 days for acute diverticulitis. She was admitted here in December for 4 days for pulmonary embolism. Last admission prior to that was April 2021 for diverticulitis, for 4 days. During this admission creatinine was noted found to be elevated above baseline. Acidosis with bicarb quite low. Case was discussed with Dr. Moran will follow patient. Patient denies any chest pain coughing shortness of breath or fevers. Has mild nausea at times. Chest x-ray with cephalization. 03/21/2022 Tab Card Press Operator seen the patient started on bicarb infusion and on discussion with the family about dialysis versus comfort measures due to her comorbid conditions. Family wants to continue the bicarb infusion and see whether she will turn around. Her immunosuppressive medications stopped and started on Solu-Medrol. Patient continues to be oliguric 03/22/2022 Patient remains significantly oliguric urine output last 24 hours less than 200 mL Patient is alert and oriented her labs from this morning is pending Continuing bicarb infusion Vital signs within normal limits no hypoxia Because of the continued oliguria and acidosis-further discussion with the patient and at bedside about dialysis and they decided wants to go ahead with the dialysis. They do not want hospice at this time. And they are in agreement with higher level of care and need for dialysis access placement and potential dialysis. Her tacrolimus level pending her creatinine and potassium levels are pending from this morning Discussed with the facilities and grounds director on-call at [facility] and he kindly accepted the patient for higher level of care and waiting for bed placement WADE on CKD IV Metabolic acidosis Renal transplant patient-On immunosuppressive therapy Patient was admitted with a creatinine of 3.3 with her baseline is around 2-2.5 Patient had a 3 admissions during the last 2 months an episode of influenza, second episode of small bowel obstruction x2. She was recently discharged from [facility] in [facility] on antibiotics This time she was admitted with a generalized weakness and worsening creatinine Tab Card Press Operator Dr. flores following the patient closely Patient was acidotic with a bicarb of 13 on admission and further evaluation it was 9 yesterday and started on bicarb drip. No other source of acidosis found other than renal failure. No clinical evidence of intestinal obstruction Tab Card Press Operator stopped immunosuppressive medication due to worsening renal failure and started her on IV steroids Started on high-dose steroids Started on bicarb infusion Stopped Lasix Ongoing discussion with the patient, at bedside regarding goal of care and need for dialysis. Initially patient refused dialysis but with the worsening kidney failure and after discussing with the patient and family decided to proceed with the dialysis and they understand patient need higher level of care. Recurrent intestinal infection and microperforation Patient was recently admitted and and managed conservatively and discharged on oral antibiotics Continue antibiotics ceftriaxone and Flagyl Tab Card Press Operator is worried about lymphoma due to chronic immunosuppression acute on chronic CHF & Volume Overload: Probably due to worsening renal failure On discussion with the family regarding goal of care and dialysis Acute encephalopathy Improving Check neuro status Possible early dementia on donepezil and seroquel Generalized weakness/deconditioning/Debility: Has increasing needs at home poor functional status *Anemia,chronic: *h/o b/l PE in December: on eliquis continued 2.5 bid *CAD w/stent last Summer: on statin/plavix/bb *h/o AICD/PPM: *HTN: Low BP on admit *Hypothyroidism: *GERD: *SLE: *h/o recurrent diverticulitis: recently admitted to [facility] DNR Discharge diagnosis: Acute renal failure on ckd Time Spent with Patient Time attestation: Total time spent providing and/or coordinating discharge services: Time spent: Greater than 30 minutes EXAM Constitutional Vitals: Temp Pulse Resp BP Pulse Ox 97.7 F 98 H 16 151/98 92 03/22/22 07:28 03/22/22 07:28 03/22/22 07:28 03/22/22 07:28 03/22/22 07:28 General appearance: mild distress and morbidly obese Head Head exam: Present atraumatic and normal inspection Eye Eye exam: Present conjunctival injection and EOMI; Absent scleral icterus Neck Neck exam: Present full ROM and normal inspection; Absent tenderness Respiratory Respiratory exam: Present rales; Absent accessory muscle use, rhonchi or wheezes Cardiovascular Cardiovascular exam: Present normal rate and rhythm and systolic murmur GI/Abdominal GI/Abdominal exam: Present normal bowel sounds and soft; Absent distended Expanded GI/Abdominal Exam GI/Abdominal exam: Absent ascites Neurological Exam Neurological exam: Present alert, oriented X3 and reflexes normal; Absent motor sensory deficit Discharge Data Data Completed and Pending Labs on day of discharge: Labs from last 24 hours 03/21/22 03/21/22 03/21/22 11:11 11:11 11:11 Ur Random Creatinine U Random Total Protein 68 Ur Random Sodium 15 Ur Random Potassium 35.2 Ur Random Chloride 20 L Ur Random Uric Acid 2.7 L Urine Urea Nitrogen 198 03/21/22 11:11 Ur Random Creatinine 103.1 U Random Total Protein Ur Random Sodium Ur Random Potassium Ur Random Chloride Ur Random Uric Acid Urine Urea Nitrogen Discharge Plan Patient/Caregiver Discharge Instructions Prescriptions: No Action tacrolimus [Prograf] 1 mg capsule 3 mg PO BID 0RF prednisone 5 mg tablet 5 mg PO QDAY 0RF omeprazole 20 MG capsule 20 mg PO DAILY 0RF Rx Instructions: 30 mins. before morning meal donepezil 10 MG tablet 10 mg PO HS 0RF torsemide 20 mg PO DAILY 0RF mycophenolate mofetil 250 mg Capsule 750 mg PO BID 0RF clopidogrel 75 mg tablet 1 tab PO QDAY 0RF levothyroxine 100 mcg tablet 1 tab PO QDAY 0RF metoprolol succinate 25 mg tablet extended release 24 hr 25 mg PO BID 0RF Rx Instructions: 3 tabs BID cholecalciferol (vitamin D3) 125 mcg (5,000 unit) Capsule 125 mcg PO QDAY 0RF Prolia 60 mg/mL syringe 60 mg subcut Q3M 0RF Label Comments: Recently had this magnesium oxide 400 mg magnesium Tablet 480 mg PO QDAY 0RF Eliquis 5 mg tablet 5 mg PO BID Qty: 60 0RF atorvastatin 80 mg tablet 1 tab PO QDAY 0RF allopurinol 100 mg tablet 1 tab PO QDAY 0RF Centrum Silver Women 1 tab PO DAILY 0RF ondansetron 4 mg tablet,disintegrating 4 mg PO Q8H PRN (Reason: nausea and vomiting) Qty: 9 0RF losartan 50 mg Tablet 50 mg PO QDAY 0RF metronidazole 500 mg Tablet 500 mg PO Q8H 0RF Follow Up Plan Follow up with: Turner Devine MD [Primary Care Provider] - Sacha Moran MD [Physician] - Disposition: [facility] Course: 03/20/2022 Ms. Ellsworth is a 67 year old F Presents to the ED with increased weakness, also reports weight gain of 10 pound weight gain past few days. Also says she is slurring her words more than usual and seems more confused. Patient was recently admitted to [facility] for recurrent diverticulitis and was discharged yesterday, was there for several days. Patient says she got home from [facility] yesterday afternoon and slept through the rest of the day and night and when she woke up she noticed how weak and tired she was, She needed help getting off of the commode. Patient was admitted here in early February for 4 days for Encephalopathy influenza A and volume depletion. She was also admitted here in January for 4 days for acute diverticulitis. She was admitted here in December for 4 days for pulmonary embolism. Last admission prior to that was April 2021 for diverticulitis, for 4 days. During this admission creatinine was noted found to be elevated above baseline. Acidosis with bicarb quite low. Case was discussed with Dr. Moran will follow patient. Patient denies any chest pain coughing shortness of breath or fevers. Has mild nausea at times. Chest x-ray with cephalization. 03/21/2022 Tab Card Press Operator seen the patient started on bicarb infusion and on discussion with the family about dialysis versus comfort measures due to her comorbid conditions. Family wants to continue the bicarb infusion and see whether she will turn around. Her immunosuppressive medications stopped and started on Solu-Medrol. Patient continues to be oliguric 03/22/2022 Patient remains significantly oliguric urine output last 24 hours less than 200 mL Patient is alert and oriented her labs from this morning is pending Continuing bicarb infusion Vital signs within normal limits no hypoxia Because of the continued oliguria and acidosis-further discussion with the patient and at bedside about dialysis and they decided wants to go ahead with the dialysis. They do not want hospice at this time. And they are in agreement with higher level of care and need for dialysis access placement and potential dialysis. Her tacrolimus level pending her creatinine and potassium levels are pending from this morning Discussed with the facilities and grounds director on-call at [facility] and he kindly accepted the patient for higher level of care and waiting for bed placement WADE on CKD IV Metabolic acidosis Renal transplant patient-On immunosuppressive therapy Patient was admitted with a creatinine of 3.3 with her baseline is around 2-2.5 Patient had a 3 admissions during the last 2 months an episode of influenza, second episode of small bowel obstruction x2. She was recently discharged from [facility] in [facility] on antibiotics This time she was admitted with a generalized weakness and worsening creatinine Tab Card Press Operator Dr. flores following the patient closely Patient was acidotic with a bicarb of 13 on admission and further evaluation it was 9 yesterday and started on bicarb drip. No other source of acidosis found other than renal failure. No clinical evidence of intestinal obstruction Tab Card Press Operator stopped immunosuppressive medication due to worsening renal failure and started her on IV steroids Started on high-dose steroids Started on bicarb infusion Stopped Lasix Ongoing discussion with the patient, at bedside regarding goal of care and need for dialysis. Initially patient refused dialysis but with the wor sening kidney failure and after discussing with the patient and family decided to proceed with the dialysis and they understand patient need higher level of care. Recurrent intestinal infection and microperforation Patient was recently admitted and and managed conservatively and discharged on oral antibiotics Continue antibiotics ceftriaxone and Flagyl Tab Card Press Operator is worried about lymphoma due to chronic immunosuppression acute on chronic CHF & Volume Overload: Probably due to worsening renal failure On discussion with the family regarding goal of care and dialysis Acute encephalopathy Improving Check neuro status Possible early dementia on donepezil and seroquel Generalized weakness/deconditioning/Debility: Has increasing needs at home poor functional status *Anemia,chronic: *h/o b/l PE in December: on eliquis continued 2.5 bid *CAD w/stent last Summer: on statin/plavix/bb *h/o AICD/PPM: *HTN: Low BP on admit *Hypothyroidism: *GERD: *SLE: *h/o recurrent diverticulitis: recently admitted to [facility] DNR Plan of Treatment: Ms. Ellsworth is a 67 year old F Presents to the ED with increased weakness, also reports weight gain of 10 pound weight gain past few days. Also says she is slurring her words more than usual and seems more confused. Patient was recently admitted to [facility] for recurrent diverticulitis and was discharged yesterday, was there for several days. Patient says she got home from [facility] yesterday afternoon and slept through the rest of the day and night and when she woke up she noticed how weak and tired she was, She needed help getting off of the commode. Patient was admitted here in early February for 4 days for Encephalopathy influenza A and volume depletion. She was also admitted here in January for 4 days for acute diverticulitis. She was admitted here in December for 4 days for pulmonary embolism. Last admission prior to that was April 2021 for diverticulitis, for 4 days. Creatinine was noted found to be elevated above baseline. Acidosis with bicarb quite low. Case was discussed with Dr. Moran will follow patient. Patient denies any chest pain coughing shortness of breath or fevers. Has mild nausea at times. Chest x-ray with cephalization. [facility] [address] [place], [place] [address]DOB: 1955 [address]Service Date:03/20/22 Admit Date: 03/20/22 [place], [place] [id number] # [id number] Nemesio Villanueva D.O. MR #: [id number] Internal Med History&PhysicalSigned HPI History of Present Illness Patient information: Note initiated : 03/20/22 at 8:45 am Service Date, if different from initiated Date: [] Patient: Wendy Ellsworth a 67 y/o F admitted on for Weight Gain/Weakness. Chief Complaint: [] History of present illness: Ms. Ellsworth is a 67 year old F Presents to the ED with increased weakness, also reports weight gain of 10 pound weight gain past few days. Also says she is slurring her words more than usual and seems more confused. Patient was recently admitted to [facility] for recurrent diverticulitis and was discharged yesterday, was there for several days. Patient says she got home from [facility] yesterday afternoon and slept through the rest of the day and night and when she woke up she noticed how weak and tired she was, She needed help getting off of the commode. Patient was admitted here in early February for 4 days for Encephalopathy influenza A and volume depletion. She was also admitted here in January for 4 days for acute diverticulitis. She was admitted here in December for 4 days for pulmonary embolism. Last admission prior to that was April 2021 for diverticulitis, for 4 days. Creatinine was noted found to be elevated above baseline. Acidosis with bicarb quite low. Case was discussed with Dr. Moran will follow patient. Patient denies any chest pain coughing shortness of breath or fevers. Has mild nausea at times. Chest x-ray with cephalization. Review of Systems: Pertinent positives as above. Denies headache/fever/chills/vomiting/chest or abdominal pain/cough/dyspnea/diarrhea. Remaining 10 point review of system reviewed negative PFSH PFSH All Active Problems (Updated 03/20/22 @ 08:45 by Kamlesh Dinh MD) Nausea (Acute) Influenza A (Acute) Encephalopathy, metabolic (Acute) Leukocytosis (Acute) Fever (Acute) Hypomagnesemia (Acute) Weakness (Acute) Acute renal failure superimposed on stage 4 chronic kidney disease (Acute) Adynamic ileus (Acute) Vertigo (Acute) Gout flare (Acute) Pulmonary emboli (Acute) Stenosis of both vertebral arteries (Acute) Acute dyspnea (Acute) CHF (congestive heart failure) (Acute) CAD (coronary artery disease) (Acute) Atrial fibrillation (Acute) SBO (small bowel obstruction) (Acute) Diverticulitis of sigmoid colon (Acute) Nausea & vomiting (Acute) Matos's palsy (Acute) Diverticulitis (Acute) Constipation (Acute) Acute diverticulitis of intestine (Acute) Kidney transplant recipient (Acute) [id number] kidney injury (Acute) Cardiomegaly (Acute) Elevated brain natriuretic peptide (BNP) level (Acute) Fall (Acute) Hematoma of parietal scalp (Acute) Depression with suicidal ideation (Acute) Acute UTI (urinary tract infection) (Acute) Ureterolithiasis (Acute) Compression fracture of T11 vertebra (Acute) Suicide attempt (Acute) Laceration (Acute) Acute UTI (Acute) Anemia (Acute) CRF (chronic renal failure) (Acute) Acute alteration in mental status (Acute) ST elevation (STEMI) myocardial infarction (Acute) Right shoulder pain (Acute) Acute right-sided thoracic back pain (Acute) Hypertension (Acute) Urinary frequency (Acute) 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) Secondary hyperparathyroidism of renal origin (Chronic) Hyperlipidemia (Chronic) Glaucoma (Chronic) Macular degeneration (Chronic) Diverticulitis (Chronic) Idiopathic aseptic necrosis of femur (Chronic) Osteoporosis (Chronic) Vitamin D deficiency (Chronic) Anemia (Chronic) Essential hypertension (Chronic) Chronic kidney disease (CKD) (Chronic) Medical History Anemia Borderline hyperglycemia Chronic kidney disease (CKD) Stage 3 Dislocation, finger, metacarpophalangeal joint Diverticulitis Essential hypertension Glaucoma Hyperlipidemia Idiopathic aseptic necrosis of femur Macular degeneration Nausea & vomiting 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 Patient with chronic kidney insufficiency Osteoporosis 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 Phlebitis and thrombophlebitis Secondary hyperparathyroidism of renal origin Urinary tract infection Vitamin D deficiency Surgical History 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 Family history of AICD (automatic internal cardiac defibrillator) (~1996) History of hand surgery (~08/2015) History of hysterectomy (~1978) History of intraocular lens implant February & March 1989 History of kidney transplant (07/27/00) History of knee surgery (~04/2009) History of orthopedic surgery (04/28/96) mohamud placement in right leg 04/28/96 @ [place]; muscle relocation and skin grafts of right leg 04/29/96 @ [place] History of parathyroidectomy (11/27/95) History of surgery fistula placement February 1993 @ [place]; fistula declot; Graft placement upper right arm 10/1999 @ [place] Kidney replaced by transplant Status post biopsy of kidney (~03/2007) Family History Father Hypertension CVA (cerebral vascular accident) Colon polyps needed surgical resection/partial colectomy Prostate cancer Hyperlipidemia Social History alcohol intake frequency: does not drink substance use type: does not use MEDS/ALLERGIES Home Medications and Allergies Home Medications Medication Instructions Recorded Confirmed Type omeprazole 20 mg capsule,delayed 20 mg PO DAILY 08/11/15 03/20/22 History release tacrolimus 1 mg capsule, 3 mg PO BID cap 02/05/16 03/20/22 History immediate-release (Prograf) prednisone 5 mg tablet 5 mg PO QDAY 06/07/17 03/20/22 History donepezil 10 mg tablet 10 mg PO HS 04/22/19 03/20/22 History mycophenolate mofetil 250 mg 750 mg PO BID 05/15/21 03/20/22 History capsule torsemide 20 mg PO DAILY 05/15/21 03/20/22 History cholecalciferol (vitamin D3) 125 125 mcg PO QDAY 01/22/22 03/20/22 History mcg (5,000 unit) capsule clopidogrel 75 mg tablet 1 tab PO QDAY 01/22/22 03/20/22 History denosumab 60 mg/mL subcutaneous 60 mg SUBCUT Q3M 01/22/22 03/20/22 History syringe (Prolia) levothyroxine 100 mcg tablet 1 tab PO QDAY 01/22/22 03/20/22 History metoprolol succinate 25 mg 25 mg PO BID 01/22/22 03/20/22 History tablet,extended release 24 hr magnesium oxide 480 mg PO QDAY 01/23/22 03/20/22 History apixaban 5 mg tablet (Eliquis) 5 mg PO BID #60 tab 02/16/22 03/20/22 Rx Centrum Silver Women 1 tab PO DAILY 02/19/22 03/20/22 History allopurinol 100 mg tablet 1 tab PO QDAY 02/19/22 03/20/22 History atorvastatin 80 mg tablet 1 tab PO QDAY 02/19/22 03/20/22 History ondansetron 4 mg disintegrating 4 mg PO Q8H PRN #9 tab 02/26/22 03/20/22 Rx tablet losartan 50 mg tablet 50 mg PO QDAY 02/27/22 03/20/22 History oseltamivir 30 mg capsule 30 mg PO DAILY #1 cap 03/01/22 03/20/22 Rx metronidazole 500 mg tablet 500 mg PO Q8H 03/20/22 03/20/22 History Allergies Allergy/AdvReac Type Severity Reaction Status Date / Time ciprofloxacin AdvReac Intermediate Cramping Verified 03/20/22 04:08 of the Muscles levofloxacin AdvReac Intermediate Other Verified 03/20/22 04:08 Quinolones AdvReac Intermediate Muscle Pain Verified 03/20/22 04:08 Cephalosporins AdvReac Mild Rash Verified 03/20/22 04:08 cilastatin [From Primaxin] AdvReac Mild Rash Verified 03/20/22 04:08 droperidol [From Inapsine] AdvReac Mild Rash Verified 03/20/22 04:08 imipenem [From Primaxin] AdvReac Mild Rash Verified 03/20/22 04:08 Labetalol [From Trandate] AdvReac Mild Rash Verified 03/20/22 04:08 meperidine [From Demerol] AdvReac Mild Rash Verified 03/20/22 04:08 metronidazole [From Flagyl] AdvReac Mild Rash Verified 03/20/22 04:08 pentazocine [From Talwin] AdvReac Mild Rash Verified 03/20/22 04:08 phenobarbital AdvReac Mild Rash Verified 03/20/22 04:08 propoxyphene AdvReac Mild Rash Verified 03/20/22 04:08 [From Darvocet-N] tobramycin AdvReac Mild Rash Verified 03/20/22 04:08 EXAM Constitutional Vitals: Temp Pulse Resp BP Pulse Ox 97.0 F 86 18 91/80 99 03/20/22 04:04 03/20/22 08:44 03/20/22 05:29 03/20/22 08:31 03/20/22 08:44 Exam: General: Alert, Awake, No acute Distress Eyes/N/T: EOMI, PERRL, JVD noted Head/Neck: neck supple, normocephalic atraumatic CV: RRR, 1-2/6 SM. normal s1/s2 Pulm: Clear b/l, no wheezing/rhonchi/rales Abd: soft, nontender, +BS x4 Ext: no clubbing/cyanosis, 1-2+ b/l LE edema Neuro: Alert, no focal deficits, moves all extremities, CN 2-12 grossly intact, symmetrical strength b/l upper/lower, sensations intact b/l upper/lower Skin: warm/dry DATA Data Completed and Pending Labs: Labs from last 24 hours 03/20/22 03/20/22 03/20/22 08:33 05:29 04:56 WBC RBC Hgb Hct MCV MCH MCHC RDW Plt Count MPV Neut % (Auto) Lymph % (Auto) [place] % (Auto) Eos % (Auto) Baso % (Auto) Lymph # (Auto) [place] # (Auto) Eos # (Auto) Baso # (Auto) Absolute Neutrophils Sodium 139 Potassium 5.0 Chloride 108 Carbon Dioxide 13 L Anion Gap 18.0 H BUN 47 H Creatinine 3.3 H GFR Calculation 14 Glucose 91 Calcium 7.2 L Total Bilirubin 0.4 AST 29 ALT 19 Alkaline Phosphatase 107 NT-Pro-B Natriuret Pep Pending Total Protein 5.3 L Albumin 2.8 L Globulin 2.5 Albumin/Globulin Ratio 1.1 Urine Color Lisandra Urine Appearance Cloudy A Urine pH 5.0 Ur Specific Muse 1.021 Urine Protein Negative Urine Glucose (UA) Negative Urine Ketones Negative Urine Occult Blood Negative Urine Nitrate Negative Urine Bilirubin Negative Urine Urobilinogen Negative Ur Leukocyte Esterase 25 A Urine RBC < 1 Urine WBC 5 H Ur Squamous Epith Cells 15 H Ur Transition Epith Cell 1 Amorphous Crystals Few A Urine Bacteria Few A Urine Mucus Few A Ur Culture Indicated? No 03/20/22 04:56 WBC 8.1 RBC 3.75 Hgb 10.6 L Hct 37.0 MCV 98.7 MCH 28.3 MCHC 28.6 L RDW 17.7 H Plt Count 270 MPV 10.3 Neut % (Auto) 81.4 H Lymph % (Auto) 13.6 L [place] % (Auto) 4.0 Eos % (Auto) 0.6 Baso % (Auto) 0.4 Lymph # (Auto) 1.10 L [place] # (Auto) 0.32 Eos # (Auto) 0.05 Baso # (Auto) 0.03 Absolute Neutrophils 6.56 Sodium Potassium Chloride Carbon Dioxide Anion Gap BUN Creatinine GFR Calculation Glucose Calcium Total Bilirubin AST ALT Alkaline Phosphatase NT-Pro-B Natriuret Pep Total Protein Albumin Globulin Albumin/Globulin Ratio Urine Color Urine Appearance Urine pH Ur Specific Muse Urine Protein Urine Glucose (UA) Urine Ketones Urine Occult Blood Urine Nitrate Urine Bilirubin Urine Urobilinogen Ur Leukocyte Esterase Urine RBC Urine WBC Ur Squamous Epith Cells Ur Transition Epith Cell Amorphous Crystals Urine Bacteria Urine Mucus Ur Culture Indicated? WADE on CKD IV Metabolic acidosis Renal transplant patient, follows with [facility]): -On immunosuppressive therapy Tab Card Press Operator Dr. flores following the patient closely and worried about intestinal lymphoma. On discussion with the patient about goal of care Stopped immunosuppressive medication due to worsening renal failure Started on high-dose steroids Started on bicarb infusion Stop Lasix On discussion with the patient and family regarding potential dialysis-patient mentioned " I do not want dialysis" The patient does not want dialysis then needs to consider hospice as she continues to be worsening renal failure and oliguric Recurrent intestinal infection and microperforation Patient was recently admitted Continue antibiotics ceftriaxone and Flagyl Tab Card Press Operator is worried about lymphoma detail chronic immunosuppression Hypotension Monitor blood pressure on IV hydration with bicarb drip We will hold the Lasix acute on chronic CHF & Volume Overload: Probably due to worsening renal failure On discussion with the family regarding goal of care and dialysis Acute encephalopathy Improving Check neuro status Possible early dementia on donepezil and seroquel Generalized weakness/deconditioning/Debility: Has increasing needs at home -poor functional status *Anemia,chronic: *h/o b/l PE in December: on eliquis *CAD w/stent last Summer: on statin/plavix/bb *h/o AICD/PPM: *HTN: Low BP on admit *Hypothyroidism: *GERD: *SLE: *h/o recurrent diverticulitis: recently admitted to [facility] DNR Prognosis: Fair Discharge Orders: Discharge Order (Routine); Ordered 03/22/22 Ordered By: Debby CONROY VTE Deep Vein Thrombosis/Pulmonary Embolism Present on Admission: No
[2022-03-22 13:08] LABS: Hematocrit 29.9 % (34.1-44.9); Hemoglobin 9.6 g/dL (11.2-15.7); Mean Corpuscular HGB Conc 32.1 g/dL (31.0-36.0); Mean Platelet Volume 10.7 fL (7.4-10.4); Platelet Count 201 K/mcL (140-440); RBC 3.25 M/mcL (3.59-5.38); Red Cell Distribution Width 17.8 % (11.5-14.5)
[2022-03-22 13:35] LABS: Albumin 2.3 gm/dL (3.2-5.2); Calcium 5.9 mg/dL (8.6-10.4); Phosphorous 4.4 mg/dL (2.5-4.5)
[2022-03-22 13:43] LABS: proBNP > 70000.0 pg/mL (<125.0)
[2022-03-22 13:47] LABS: Anisocytosis 1+ (None Seen); Lymphocytes % 10 % (15-49); Monocytes % (Manual) 5 % (1-12); Platelet Estimate NORMAL (Normal); Polychromasia FEW (None Seen); RBC Morphology ABNORMAL (Normal); Segmented Neutrophils % 85 % (38-78)
[2022-03-22] MEDS ORDERED: HYDROCORTISONE SOD SUCC 100 MG VIAL IV SCH (14:00)
[2022-03-22] MEDS ORDERED: DEXTROSE 50% 50 ML VIAL IV PRN (14:03)
[2022-03-22] MEDS ORDERED: DEXTROSE 31 GM ORAL.SUSP PO PRN (14:03)
[2022-03-22] MEDS ORDERED: INSULIN LISPRO 1 UNIT/0.01 ML UNIT SQ SCH (14:03)
[2022-03-22] MEDS ORDERED: FUROSEMIDE 100 MG/10 ML VIAL IV ONE (14:13)
--- NOTE | 2022-03-22 18:09 | EKG ---
[facility] Test Date: 2022-03-20 Pat Name: Wendy Ellsworth Department: ED Room: Gender: Female Cook Chief: as : 1955 Requested By: Kamlesh Dinh Order Number: [id number] Reading MD: Adelso Santos Measurements Intervals [place] Rate: 79 P: IA: QRS: 96 QRSD: 93 T: 136 QT: 473 QTc: 543 Interpretive Statements Atrial fibrillation NONSPECIFIC IVCD Electronically Signed On 03-22-2022 18:09:11 PDT by Adelso Santos /[id number]
[2022-03-23] MEDS ORDERED: CALCITRIOL 0.5 MCG CAPSULE PO SCH (14:15)
[2022-03-23 16:06] LABS: Tacrolimus (Prograf)-SO 6.3 mcg/L
== END 2022-03-22 13:50 | disposition short-term general hospital (02) | DRG 698 ==
LOC: ED 04:03 → MEDSUR 04:03 → OBSVTOIN 10:15 → MEDSUR 10:21
PROVIDERS: ADMIT Internal Medicine; ATTEND Internal Medicine